=== PATIENT | male | born 1990 | race Caucasian/White ===

== ENCOUNTER 2018-12-04 08:21 | Emergency (ER) | payer MEDICAID, SELFPAY ==
[2018-12-04 08:22] VITALS: BP 152/112; PULSE 100; RESP 18; TEMP 36.6; O2SAT 97; BMI 27.3
--- NOTE | 2018-12-04 08:32 | ED.VISSUMM ---
- ER Visit Summary Date of Service: 12/04/18 Chief Complaint: Foreign body sensation in throat History of Present Illness: The patient is a 28 M who presents for foreign body sensation in throat. Patient states he was sleepwalking last night and ate a sandwich that was wrapped in aluminum foil. He swallowed some of the foil. He now feels like there is a golf ball stuck in his throat. He is having no trouble breathing. He does not have any difficulty drinking fluids, but felt like his vitamins got stuck in his throat. He did not vomit them up. He did self induce vomiting to try and get the full out but did not know any full and emesis. He denies any hemoptysis or hematemesis. No chest pain, fever, cough or any other complaints other than the sensation of the foreign body in throat and the perception that he was unable to swallow his pills. Patient denies any medical history. He does use tobacco. Physical Examination: Vital signs: afebrile, hemodynamically stable, no hypoxia on room air General: well nourished, well developed, in no distress Skin: warm, dry, no rash, no pallor HEENT: normocephalic and atraumatic; PERRL, EOMI, moist mucous membranes, oropharynx is clear without any lacerations, abrasions or erythema. Uvula is midline. No foreign body visualized. No stridor noted over the throat. Full active range of motion of the neck without any pain or tenderness Cardiovascular: regular rate and rhythm without murmurs, 2+ radial pulses Respiratory: No increased work of breathing, lungs are clear to auscultation bilaterally, no rales, rhonchi or wheezing, no stridor Abdominal: Abdomen is soft, nontender with normoactive bowel sounds, no guarding or rebound, no masses MSK: Moves all extremities, no deformities, normal strength Neuro: Awake and alert, oriented ?4. No facial droop, sensation and motor function intact and symmetric Test Results: Clinical Impression(s) from Imaging Studies Soft Tissue Neck X-Ray 12/04/18 08:50 IMPRESSION: Normal x-ray soft tissue neck. Electronically Signed: Benji Sanchez, at 9:16 EDT , Service support , Acute Abdomen Series 12/04/18 09:00 IMPRESSION: Normal x-ray examination of the chest, abdomen, and pelvis. Electronically Signed: Benji Sanchez, at 9:17 EDT , Service support , Medications Given Dexamethasone Sodium Phosphate (Decadron) 8 mg PO.IVFORM X1 ONE Stop: 12/04/18 09:35 Emergency Department Course and Treatment: Patient has no findings concerning for airway compromise or esophageal obstruction resulting in inability to tolerate secretions. Soft tissue neck and abdominal x-ray were performed to try and visualize the aluminum foil. X-rays showed no radiopaque foreign bodies. Patient was given a p.o. challenge with cookies and water. He vomited up the cookie. Patient was then given a celena norberto to chug and then jump up and down on his heels. Patient states he felt like the obstruction move downward. After that, patient was able to swallow the cookie without any difficulty. He still felt like his throat was irritated and thus was given a dose of Decadron to help with any inflammation from potential foreign body trauma. Patient discharged home. Treatment Plan: [] Disposition: [] Impression: Foreign body sensation in throat This note was generated with [employer] dictation software. It may contain incorrect words, spelling, and punctuation that were not noted in review of the chart prior to signing ED Disposition - Plan for ED Patient: Disposition: Home or Assisted Living Instructions: ED Foreign Body Swallowed Adult Referrals: Nikita Medina MD [Primary Care Provider] - 3-5 Days if not improving Additional Instructions: You may eat and drink normally as tolerated. Use [id number] pain medication as needed for any throat pain. There was no aluminum foil noted in your throat or any other stomach on x-ray. You most likely have a scratch in your throat from swallowing it. If you have any difficulty breathing or any other concerns, please return emergency department for another evaluation.
--- NOTE | 2018-12-04 08:35 | ED.DCSUM_ITS ---
- ER Visit Summary Date of Service: 12/04/18 Chief Complaint: Foreign body sensation in throat History of Present Illness: The patient is a 28 M who presents for foreign body sensation in throat. Patient states he was sleepwalking last night and ate a sandwich that was wrapped in aluminum foil. He swallowed some of the foil. He now feels like there is a golf ball stuck in his throat. He is having no trouble breathing. He does not have any difficulty drinking fluids, but felt like his vitamins got stuck in his throat. He did not vomit them up. He did self induce vomiting to try and get the full out but did not know any full and emesis. He denies any hemoptysis or hematemesis. No chest pain, fever, cough or any other complaints other than the sensation of the foreign body in throat and the perception that he was unable to swallow his pills. Patient denies any medical history. He does use tobacco. Physical Examination: Vital signs: afebrile, hemodynamically stable, no hypoxia on room air General: well nourished, well developed, in no distress Skin: warm, dry, no rash, no pallor HEENT: normocephalic and atraumatic; PERRL, EOMI, moist mucous membranes, oropharynx is clear without any lacerations, abrasions or erythema. Uvula is midline. No foreign body visualized. No stridor noted over the throat. Full active range of motion of the neck without any pain or tenderness Cardiovascular: regular rate and rhythm without murmurs, 2+ radial pulses Respiratory: No increased work of breathing, lungs are clear to auscultation bilaterally, no rales, rhonchi or wheezing, no stridor Abdominal: Abdomen is soft, nontender with normoactive bowel sounds, no guarding or rebound, no masses MSK: Moves all extremities, no deformities, normal strength Neuro: Awake and alert, oriented ?4. No facial droop, sensation and motor function intact and symmetric Test Results: Clinical Impression(s) from Imaging Studies Soft Tissue Neck X-Ray 12/04/18 08:50 IMPRESSION: Normal x-ray soft tissue neck. Electronically Signed: Benji Sanchez, at 9:16 EDT , Service support , Acute Abdomen Series 12/04/18 09:00 IMPRESSION: Normal x-ray examination of the chest, abdomen, and pelvis. Electronically Signed: Benji Sanchez, at 9:17 EDT , Service support , Medications Given Dexamethasone Sodium Phosphate (Decadron) 8 mg PO.IVFORM X1 ONE Stop: 12/04/18 09:35 Emergency Department Course and Treatment: Patient has no findings concerning for airway compromise or esophageal obstruction resulting in inability to tolerate secretions. Soft tissue neck and abdominal x-ray were performed to try and visualize the aluminum foil. X-rays showed no radiopaque foreign bodies. Patient was given a p.o. challenge with cookies and water. He vomited up the cookie. Patient was then given a celena norberto to chug and then jump up and down on his heels. Patient states he felt like the obstruction move downward. After that, patient was able to swallow the cookie without any difficulty. He still felt like his throat was irritated and thus was given a dose of Decadron to help with any inflammation from potential foreign body trauma. Patient discharged home. Treatment Plan: [] Disposition: [] Impression: Foreign body sensation in throat This note was generated with [employer] dictation software. It may contain incorrect words, spelling, and punctuation that were not noted in review of the chart prior to signing ED Disposition - Plan for ED Patient: Disposition: Home or Assisted Living Instructions: ED Foreign Body Swallowed Adult Referrals: Nikita Medina MD [Primary Care Provider] - 3-5 Days if not improving Additional Instructions: You may eat and drink normally as tolerated. Use [id number] pain medication as needed for any throat pain. There was no aluminum foil noted in your throat or any other stomach on x-ray. You most likely have a scratch in your throat from swallowing it. If you have any difficulty breathing or any other concerns, please return emergency department for another evaluation.
--- NOTE | 2018-12-04 08:50 | RAD_ITS ---
STUDY: X-RAY - SOFT TISSUE NECK REASON FOR EXAM: Male, 28 years old. Possible foreign body. TECHNIQUE: AP and lateral view(s) of the neck were obtained. COMPARISON: None. FINDINGS: Normal visualized nasopharynx, oropharynx, hypopharynx. Normal epiglottis. Normal visualized subglottic tracheal air column. Normal prevertebral soft tissue structures. There are degenerative changes of the cervical spine with cervical spondylosis. The soft tissue structures are unremarkable. RAD/Neck for Soft Tissue IMPRESSION: Normal x-ray soft tissue neck. Electronically Signed: Benji Sanchez, at 9:16 EDT , Service support ,
--- NOTE | 2018-12-04 09:00 | RAD_ITS ---
STUDY: X-RAY - ACUTE ABDOMINAL SERIES REASON FOR EXAM: Male, 28 years old. Possible foreign body ingestion. TECHNIQUE: Single view of the chest. Supine, and erect view(s) of the abdomen were obtained. COMPARISON: None. FINDINGS: The lungs are clear and expanded. Normal size heart. Normal mediastinum and yisel. Normal visualized pulmonary arteries. Normal visualized aortic arch and descending thoracic aorta. There is a non-specific bowel gas pattern. The soft tissue structures of the abdomen and pelvis are unremarkable. Normal visualized osseous structures. RAD/Acute Abdomen Inc Chest IMPRESSION: Normal x-ray examination of the chest, abdomen, and pelvis. Electronically Signed: Benji Sanchez, at 9:17 EDT , Service support ,
[2018-12-04] MEDS: dexAMETHasone 10 MG/ML Vial 8 MG PO.IVFORM (09:43)
[2018-12-04 09:50] VITALS: BP 143/88; PULSE 84; RESP 16; O2SAT 97
== END 2018-12-04 09:52 | disposition home or self-care (01) ==
PROVIDERS: Emergency Provider Emergency Medicine; Family Provider Family Medicine; PCP Family Medicine
DX: R09.89 Other specified symptoms and signs involving the circulatory and respiratory systems (principal); Z72.0 Tobacco use
CPT/HCPCS: 70360; 74022; 99283

== ENCOUNTER → 2018-12-21 08:51 | Outpatient (CLI) | payer MEDICAID, SELFPAY ==
[2018-12-04 08:22] VITALS: BMI 27.3
--- NOTE | 2018-12-21 08:58 | RAD_ITS ---
Patient swallowed the barium. There is an irregular mass measures 1.3 x 0.8 cm in the upper esophagus this is at the level of T3-T4 vertebral bodies is causing focal dilatation of the esophagus, now the history was given by the patient as he swallowed a bolus sandwich that is covered with aluminium foil So most likely this represents aluminum foreign foreign-body particularly where the area is gravid in between the aluminium folds. Apparently, without such history is given this is simulating a tumor. Direct visualization is needed to remove this foreign body. RAD/Esophagus Only IMPRESSION: Evidence of foreign body in the upper esophagus (represent Aluminium foil). As stated by the patient's history. Electronically Signed: Jesus Rodriguez, at 11:35 EDT Tel , Service support ,
== END ==
PROVIDERS: Family Provider Family Medicine; PCP Family Medicine; Referring Provider Otolaryngology; Visit Provider Otolaryngology
DX: R13.10 Dysphagia, unspecified (principal)
CPT/HCPCS: 74220

== ENCOUNTER 2021-06-18 14:50 | Emergency (ER) | payer MEDICAID, SELFPAY ==
[2021-06-18 14:51] VITALS: BP 155/102; PULSE 124; RESP 18; TEMP 36.1; O2SAT 97; BMI 28.8
--- NOTE | 2021-06-18 14:57 | NURSING ---
NO OLD EKGS
--- NOTE | 2021-06-18 15:05 | EKG12_ITS ---
Test Reason : CP Blood Pressure : / mmHG Vent. Rate : 111 BPM Atrial Rate : 111 BPM P-R Int : 122 ms QRS Dur : 084 ms QT Int : 310 ms P-R-T Axes : 059 033 047 degrees QTc Int : 421 ms Sinus tachycardia Otherwise normal ECG Confirmed by MIKA FAJARDO, ESA ([id number]), medical transcription editor DANIEL JHAVERI ([id number]) on 06/20/2021 9:49:13 AM Referred By: NERI/RYLEE Confirmed By:ESA BRENNAN MD
--- NOTE | 2021-06-18 15:09 | NURSING ---
NO OLD EKGS
[2021-06-18 15:22] LABS: Absolute Lymphocyte Count 5.58 X10^3/uL (0.83-4.51); Basophil# 0.18 X10^3/uL; Basophil% 0.8 % (0-1); Differential Indicated SCAN CRITERIA MET; Eosinophil# 0.31 X10^3/uL; Eosinophils% 1.3 % (0-5); Hematocrit 45.4 % (40-54); Hemoglobin 14.9 g/dL (13.0-16.5); Lymphocyte # 5.58 X10^3/ul (0.83-4.51); Lymphocyte % 23.9 % (19-41); Mean Corp Hgb Conc 32.8 g/dL (32-36); Mean Corpuscular Hgb 29.4 pg (27.0-32.0); Mean Corpuscular Volume 89.7 fL (80-94); Mean Platelet Vol. 9.9 fl (6.2-12.0); NRBC Flagged by Analyzer 0 % (0-5); Neutrophil # 14.96 X10^3/uL (2.7-7.7); Neutrophil % 64.2 % (47-70); POSITIVE DIFFERENTIAL YES; Platelet Count 615 K/mm3 (150-450); RBC Distribution Width CV 14.8 % (11.6-14.6); RBC Distribution Width SD 48.4 fl (35.1-43.9); Red Blood Count 5.06 M/mm3 (4.6-6.2); White Blood Count 23.3 K/mm3 (4.4-11.0)
--- NOTE | 2021-06-18 15:24 | ED.VIS.CHEST ---
HPI History of Present Illness Chief Complaint: Chest Pain Informant: patient Narrative Narrative: 31-year-old male presenting to the emergency room with what he is describing as diaphragm pain. The patient states that he developed Covid symptoms on 22 May. He has noticed a fast heart rate and a persistent occasional cough. He states over the past couple days has developed pain lower aspect of his chest along the diaphragm area. It is made worse with movement. He denies any fevers. No vomiting or diarrhea. He is eating appropriately for him. PFSH PFSH Medical History (Updated 06/18/21 @ 18:[address] Prosper Corrales DO) COVID-19 Home Medications NK 12/04/18 [History Last Taken Unknown] Allergy/AdvReac Type Severity Reaction Status Date / Time Cephalosporins Allergy Hives Verified 12/04/18 08:24 Penicillins Allergy Hives Verified 12/04/18 08:24 Surgical History (Updated 06/18/21 @ 15:50 by Lakisha Garcia RN) Hx of splenectomy Social History (Updated 06/18/21 @ 15:[address] Prosper Corrales DO) Smoking Status: Never smoker substance use type: former substance user ROS ROS ED Constitutional Constitutional ED: Denies chills or weight loss Eyes Eyes: Denies change in vision or diplopia ENT ENT ED: Denies ear pain, rhinorrhea or sore throat Cardiovascular Cardiovascular: Reports chest pain, palpitations and racing heartbeat; Denies orthopnea Respiratory/Chest Respiratory/Chest: Reports cough; Denies dyspnea or orthopnea Gastrointestinal Gastrointestinal: Denies abdominal pain, diarrhea, nausea or vomiting Genitourinary Genitourinary ED: Denies dysuria, hematuria or urinary frequency Musculoskeletal Musculoskeletal: Denies arthralgias or myalgias Integumentary Denies abscess or rash Neurologic Neurologic: Denies headache(s) or weakness Psychiatric Psychiatric: Denies anxiety, depression, suicidal ideation or suicidal thoughts Endocrine Endocrinology: Denies polydipsia, polyphagia or polyuria Allergic/Immunologic Allergic/Immunologic ED: Denies mouth swelling, tongue swelling or urticaria EXAM Physical Exam Const Vital Signs: 06/18/21 14:51 06/18/21 15:49 Temperature 97 F L Temperature Source Temporal Pulse Rate 124 H 122 H Respiratory Rate 18 16 Respiratory Effort Normal Non-Labored Blood Pressure 155/102 H 154/96 H Blood Pressure Mean 119 115 Pulse Ox 97 97 Oxygen Delivery Method Room Air Positive well nourished and well developed General Appearance ED: well developed HEENT Reports normocephalic, head/scalp atraumatic, TM's clear and moist mucous membranes normocephalic and atraumatic Tympanic Membrane ED: Yes TM's clear Eyes PERRL and EOMs intact bilaterally Neck no lymphadenopathy, supple and no JVD Resp normal respiratory effort and clear to auscultation bilaterally Cardio regular rate and no murmurs Rate: tachycardic GI normal to inspection, nondistended, normoactive bowel sounds and non-tender Palpation: soft Back/Spine no CVA tenderness and normal ROM Extremity normal to inspection General Extremety ED: Negative for edema General Extremity: Negative for edema Neuro oriented x3 and CN's II-XII intact bilaterally Sensorium / Orientation: alert Motor Exam: strength 5/5 throughout Psych mental status grossly normal Mood & Affect: Negative for depressed or tearful Skin no rashes or lesions noted and no wounds MDM MDM MDM Narrative Medical decision making narrative: Patient's white count is 23. Upon discussion with him he now tells me that he has put himself on prednisone for the past 5+ days. His D-dimer is negative. Troponin high-sensitivity is 5 creatinine 1.17. Urinalysis is negative. CT the abdomen pelvis does not demonstrate anything to explain the pathology. He remains tachycardic and hypertensive. I think part of this is anxiety which he agrees with. He may have residual tachycardia because of his Covid infection. As far as the diaphragm pain not sure what to make out of that. Would encourage him to Lab Data Attestation: I reviewed the patient's lab results. Labs: Laboratory Results - last 24 hr 06/18/21 06/18/21 06/18/21 15:15 15:15 15:15 WBC 23.3 H RBC 5.06 Hgb 14.9 Hct 45.4 MCV 89.7 MCH 29.4 MCHC 32.8 RDW Std Deviation 48.4 H RDW Coeff of Rhianna 14.8 H Plt Count 615 H MPV 9.9 Immature Gran % (Auto) 0.800 Neut % (Auto) 64.2 Lymph % (Auto) 23.9 [place] % (Auto) 9.0 Eos % (Auto) 1.3 Baso % (Auto) 0.8 Absolute Neuts (auto) 15.0 H Absolute Lymphs (auto) 5.58 H Nucleated RBC % 0 Differential Comment Diff Path Review May foll Platelet Estimate MKD INC RBC Morphology NORM C+C D-Dimer Quant (PE/DVT) <= 0.27 Sodium 138 Potassium 3.7 Chloride 104 Carbon Dioxide 25.0 Anion Gap 9 BUN 21 H Creatinine 1.17 Estim Creat Clear Calc 90.64 Est GFR (MDRD) Af Amer 93 Est GFR (MDRD) Non-Af 77 BUN/Creatinine Ratio 17.9 Glucose 151 H Calcium 9.0 Total Bilirubin 0.50 AST 38 H ALT 82 H Alkaline Phosphatase 80 Troponin I High Sens 5 Total Protein 7.3 Albumin 3.5 Globulin 3.8 Albumin/Globulin Ratio 0.9 Lipase 214 Urine Color Urine Clarity Urine pH Ur Specific [place] Urine Protein Urine Glucose (UA) Urine Ketones Urine Occult Blood Urine Nitrite Urine Bilirubin Urine Urobilinogen Ur Leukocyte Esterase Urine RBC Urine WBC Ur Squamous Epith Cells Urine Bacteria Urine Mucus Urine Opiates Screen Urine Methadone Screen Ur Barbiturates Screen Ur Phencyclidine Scrn Ur Amphetamines Screen U Methamphetamin-MDMA U Benzodiazepines Scrn Urine Cocaine Screen U Cannabinoids Screen Ur Drug Screen Comment 06/18/21 06/18/21 16:30 16:30 WBC RBC Hgb Hct MCV MCH MCHC RDW Std Deviation RDW Coeff of Rhianna Plt Count MPV Immature Gran % (Auto) Neut % (Auto) Lymph % (Auto) [place] % (Auto) Eos % (Auto) Baso % (Auto) Absolute Neuts (auto) Absolute Lymphs (auto) Nucleated RBC % Differential Comment Diff Path Review Platelet Estimate RBC Morphology D-Dimer Quant (PE/DVT) Sodium Potassium Chloride Carbon Dioxide Anion Gap BUN Creatinine Estim Creat Clear Calc Est GFR (MDRD) Af Amer Est GFR (MDRD) Non-Af BUN/Creatinine Ratio Glucose Calcium Total Bilirubin AST ALT Alkaline Phosphatase Troponin I High Sens Total Protein Albumin Globulin Albumin/Globulin Ratio Lipase Urine Color Straw Urine Clarity Clear Urine pH 7.0 Ur Specific [place] 1.005 Urine Protein Negative Urine Glucose (UA) Normal Urine Ketones Negative Urine Occult Blood Negative Urine Nitrite Negative Urine Bilirubin Negative Urine Urobilinogen Normal Ur Leukocyte Esterase Negative Urine RBC 0 SEEN Urine WBC 0 SEEN Ur Squamous Epith Cells 0 SEEN Urine Bacteria 0 SEEN Urine Mucus 0 SEEN Urine Opiates Screen NEGATIVE Urine Methadone Screen NEGATIVE Ur Barbiturates Screen NEGATIVE Ur Phencyclidine Scrn NEGATIVE Ur Amphetamines Screen NEGATIVE U Methamphetamin-MDMA NEGATIVE U Benzodiazepines Scrn NEGATIVE Urine Cocaine Screen NEGATIVE U Cannabinoids Screen POSITIVE H Ur Drug Screen Comment Radiography Diagnostic Testing: Clinical Impression(s) from Imaging Studies Chest X-Ray 06/18/21 15:30 IMPRESSION: Normal x-ray examination of the chest. Electronically Signed: Benji Sanchez MD at 15:50 EST , Service support , Abdomen/Pelvis CT 06/18/21 15:57 IMPRESSION: Diffuse hepatic steatosis. Bowel malrotation. No evidence of bowel obstruction. Normal appendix Electronically Signed: Brain Angel MD at 17:53 EST Tel , Service support , EKG Initial EKG: Interpretation: Sinus Tachycardia Comments: Ventricular rate of 111 bpm Discharge Plan Triage Chief Complaint: Chest Pain ED Provider: Prosper Corrales Dx/Rx/DC Orders Clinical Impression: Sinus tachycardia, COVID-19, Abdominal pain Prescriptions: No Action NK RF: 0 Primary Care Provider: Nikita Medina Referrals: Nikita Medina MD [Primary Care Provider] - 1-2 Weeks Disposition Disposition: Home, Self Care
--- NOTE | 2021-06-18 15:30 | RAD_ITS ---
STUDY: X-RAY CHEST REASON FOR EXAM: Male, 31 years old. Cough TECHNIQUE: Single AP portable view of the chest. COMPARISON: Comparison is made with prior study dated 12/05/1999. FINDINGS: EKG electrodes are seen. The lungs are clear and expanded. There is no demonstrated pleural abnormality. Normal size heart. Normal mediastinum and yisel. Normal visualized pulmonary arteries. Normal visualized aortic arch and descending thoracic aorta. Normal visualized thoracic spine. Normal visualized ribs, clavicles, and shoulders. There is no demonstrated abnormality of the visualized soft tissue structures of the upper abdomen. RAD/Chest 1 View (Portable) IMPRESSION: Normal x-ray examination of the chest. Electronically Signed: Benji Sanchez MD at 15:50 EST , Service support ,
[2021-06-18 15:45] LABS: ALB/GLOB Ratio 0.9 RATIO (0.9-2.4); AST(SGOT) 38 U/L (15-37); Alanine Aminotransfer ALT/SGPT 82 U/L (16-61); Albumin, Serum 3.5 g/dL (3.2-5.0); Alkaline Phosphatase 80 U/L (45-117); Anion Gap 9 (5-15); BUN 21 mg/dL (7-18); BUN/Creat Ratio 17.9 RATIO (10-20); Chloride 104 mmol/L (98-107); Creatinine, Serum 1.17 mg/dL (0.70-1.30); EST Glomerular Filtration Rate 77 mL/min (>60); Est Glom Filt Rate - Afr Amer 93 mL/min (>60); Estimated Creatinine Clearance 90.64 ml/min; Globulin 3.8 g/dL (2.2-4.2); Glucose 151 mg/dL (74-106); Lipase 214 U/L (73-393); Potassium 3.7 mmol/L (3.5-5.1); Protein, Total 7.3 g/dL (6.4-8.2); Sodium Level 138 mmol/L (136-145); Troponin-I HS 5 pg/mL (3.0-78.0)
[2021-06-18 15:46] LABS: D-Dimer Quantitative (DVT/PE) <= 0.27 FEU/ug/m (0.27-0.49)
[2021-06-18 15:49] VITALS: BP 154/96; PULSE 122; RESP 16; O2SAT 97
--- NOTE | 2021-06-18 15:57 | CT_ITS ---
STUDY: CT ABDOMEN AND PELVIS WITH CONTRAST REASON FOR EXAM: Male, 31 years old. abdominal pain RADIATION DOSAGE (If Supplied By Facility): CTDIvol = ( 13.98 ) mGy, DLP = ( 1134.42 ) mGycm TECHNIQUE: Transaxial images were obtained from the dome of the diaphragm to the symphysis pubis without oral contrast. IV 100mL [id number]-[id number] was administered. Sagittal and coronal images were reconstructed. Individualized dose optimization techniques were used for this CT. COMPARISON: None. FINDINGS: Lung bases clear. Suggestion of diffuse hepatic steatosis. Prior splenectomy. Unremarkable pancreas, adrenals, and bilateral kidneys. No definite cholelithiasis. Normal appendix. 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 No evidence of bowel obstruction. No free air or free fluid. No adenopathy. Intact abdominal aorta and its major branches. Sections through the pelvis demonstrate a normal sized prostate. Urinary bladder grossly unremarkable. Fat-containing left inguinal hernia. Intact osseous structures. CT/Abdomen/Pelvis W IV Cont ONLY IMPRESSION: Diffuse hepatic steatosis. Bowel malrotation. No evidence of bowel obstruction. Normal appendix Electronically Signed: Brain Angel MD at 17:53 EST Tel , Service support ,
[2021-06-18 16:15] LABS: Platelet Estimate MKD INC (ADEQ)
[2021-06-18 16:16] LABS: Red Cell Morphology NORM C+C NORMAL (NORM C&C)
[2021-06-18 16:36] LABS: Bacteria 0 SEEN /hpf (None Seen); Mucous, Urine 0 SEEN /hpf (<or=2+); Red Blood Cells-Urine 0 SEEN /hpf (0-5); Squamous Epithelial Cells - UA 0 SEEN /hpf (0-5); White Blood Cells 0 SEEN /hpf (0-5)
[2021-06-18 16:38] LABS: Color, Urine Straw (Yellow); Glucose, Dipstick Normal (Normal); Ketone-Dipstick Negative (Negative); Leukocyte Esterase-Dipstick Negative /ul (Negative); Nitrite-Dipstick Negative (Negative); Occult Blood-Urine Negative /ul (Negative); Protein-Dipstick Negative (Negative); Specific Gravity, Urine 1.005 (1.002-1.030); Urine Bilirubin Dipstick Negative (Negative); Urine Clarity Clear (Clear); Urine Urobilinogen Normal (Normal)
[2021-06-18 17:09] LABS: Amphetamine Urine VISTA NEGATIVE (<1000 ng/mL); Barbiturate Urine VISTA NEGATIVE (< 200 ng/mL); Benzodiazepine Urine VISTA NEGATIVE (< 200 ng/mL); Cocaine Urine VISTA NEGATIVE (< 300 ng/mL); Ecstacy Urine VISTA NEGATIVE (< 500 ng/mL); Methadone Urine VISTA NEGATIVE (< 300 ng/mL); PCP Urine VISTA NEGATIVE (< 25 ng/mL); THC Urine VISTA POSITIVE (< 50 ng/mL); Vista UDS pH Range 6
[2021-06-18 18:29] VITALS: BP 162/107; PULSE 118; RESP 22; O2SAT 98
[2021-06-20 09:43] LABS: Pathologist Review Reviewed
== END 2021-06-18 18:30 | disposition home or self-care (01) ==
PROVIDERS: Emergency Provider Emergency Medicine; PCP Family Medicine
DX: U07.1 COVID-19 (principal); R00.0 Tachycardia, unspecified; R07.9 Chest pain, unspecified; R10.9 Unspecified abdominal pain
CPT/HCPCS: 71045; 74177; 80053; 80307; 81001; 83690; 84484; 85025; 85379; 93005; 99284; Q9967; A4216

== ENCOUNTER 2022-01-19 16:26 | Emergency (ER) | payer MEDICAID, SELFPAY ==
[2022-01-19 16:27] VITALS: BP 131/91; PULSE 88; RESP 14; TEMP 37; O2SAT 100; BMI 25.1
[2022-01-19 16:39] VITALS: RESP 18
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
== END 2022-01-19 16:51 | disposition home or self-care (01) ==
PROVIDERS: Emergency Provider Emergency Medicine; PCP Family Medicine; Visit Provider Emergency Medicine
DX: L03.114 Cellulitis of left upper limb (principal); B95.62 Methicillin resistant Staphylococcus aureus infection as the cause of diseases classified elsewhere; Z90.81 Acquired absence of spleen; Z86.16 Personal history of COVID-19
CPT/HCPCS: 99282

== ENCOUNTER 2023-04-19 18:13 | Emergency (ER) | payer MEDICAID, SELFPAY ==
[2023-04-19 18:14] VITALS: BP 147/99; PULSE 84; RESP 12; O2SAT 98
[2023-04-19 18:15] VITALS: BP 150/103; PULSE 99; RESP 14; TEMP 36.4; O2SAT 98; BMI 27.3
--- NOTE | 2023-04-19 18:28 | EDS_ITS ---
HPI <DARLENE Etienne - Last Filed: 04/19/23 19:49> History of Present Illness Chief Complaint: Allergic Reaction Narrative Narrative: Patient presenting today due to an urticarial rash to his chest and neck that started this evening. He reports that he was outside picking peppers and tomatoes from his garden and pulling weeds. He did have a hoodie on at that time but does remember scratching his neck afterwards. He denies any contact with known allergens, new medications, or new body products/detergents. He denies any swelling to his lips, tongue, throat. He denies any difficulty swallowing or shortness of breath. PFSH <DARLENE Etienne - Last Filed: 04/19/23 19:49> COUNT INCLUDES THE [facility] Medical History (Updated 04/19/23 @ 19:39 by DARLENE Etienne) COVID-19 Home Medications mupirocin 2 % topical ointment 1 applic topical BID PRN MRSA #22 grams 01/19/22 [Rx Last Taken Unknown] sulfamethoxazole 800 mg-trimethoprim 160 mg tablet 1 tab PO BID #14 TABLETS 01/19/22 [Rx Last Taken Unknown] famotidine 20 mg tablet 20 mg PO DAILY 4 days #4 tabs 04/19/23 [Rx Last Taken Unknown] famotidine 40 mg tablet 40 mg PO DAILY 04/19/23 [History Last Taken Unknown] prednisone 20 mg tablet 40 mg (2 x 20 mg) PO DAILY 4 days #8 tabs 04/19/23 [Rx Last Taken Unknown] Allergy/AdvReac Type Severity Reaction Status Date / Time Cephalosporins Allergy Hives Verified 04/19/23 18:14 Penicillins Allergy Hives Verified 04/19/23 18:14 Surgical History (Updated 04/19/23 @ 18:33 by Nella Henry) History of adenectomy Hx of splenectomy Hx of tonsillectomy Social History Smoking Status: Former smoker substance use type: former substance user ROS <DARLENE Etienne - Last Filed: 04/19/23 19:49> ROS ED Constitutional Constitutional ED: Denies chills or fever(s) Cardiovascular Cardiovascular: Denies chest pain Respiratory/Chest Respiratory/Chest: Denies cough or dyspnea Gastrointestinal Gastrointestinal: Denies abdominal pain, nausea or vomiting Musculoskeletal Musculoskeletal: Denies arthralgias or myalgias Integumentary Reports rash Neurologic Neurologic: Denies weakness Allergic/Immunologic Allergic/Immunologic ED: Reports urticaria; Denies lip swelling, mouth swelling or tongue swelling EXAM <DARLENE Etienne - Last Filed: 04/19/23 19:49> Physical Exam Const Vital Signs: 04/19/23 18:15 04/19/23 18:14 04/19/23 19:43 Temperature 97.6 F L Temperature Source Temporal Pulse Rate 99 84 72 Respiratory Rate 14 12 18 Blood Pressure 150/103 H 147/99 H 133/62 H Blood Pressure Mean 118 115 85 Pulse Ox 98 98 97 Oxygen Delivery Method Room Air Room Air Positive well nourished, well developed and no apparent distress General Appearance ED: well developed HEENT Reports normocephalic and head/scalp atraumatic HEENT Narrative: Mallampati score 1 No edema to the lips, tongue, or posterior pharynx. Mouth ED: Yes moist mucous membranes normal Eyes PERRL and EOMs intact bilaterally Neck full ROM and supple Chest Wall inspection of chest normal Resp normal respiratory effort and clear to auscultation bilaterally Cardio regular rate and regular rhythm GI soft to palpation, non-tender, non-distended and no masses Back/Spine normal ROM and normal to inspection Extremity normal to inspection and full ROM Neuro oriented x3, CN's II-XII intact bilaterally, moves all extremities, no focal motor deficits and no sensory deficits noted Sensorium / Orientation: awake and alert Psych mental status grossly normal and thought process normal Skin Skin Narrative: Urticarial rash to the neck, chest, and antecubital fossa bilaterally <Jero Mancia MD - Last Filed: 04/19/23 20:42> Physical Exam Const Vital Signs: 04/19/23 18:15 04/19/23 18:14 04/19/23 19:43 Temperature 97.6 F L Temperature Source Temporal Pulse Rate 99 84 72 Respiratory Rate 14 12 18 Blood Pressure 150/103 H 147/99 H 133/62 H Blood Pressure Mean 118 115 85 Pulse Ox 98 98 97 Oxygen Delivery Method Room Air Room Air MDM <DARLENE Etienne - Last Filed: 04/19/23 19:49> MDM MDM Narrative Medical decision making narrative: Patient presenting today with an urticarial rash to his chest, neck, bilateral antecubital fossa's. He was outside picking peppers and tomatoes from his garden and was also pulling weeds but was wearing a hoodie. He does remember scratching his neck and then shortly after noticed the rash. He did not come into contact with any known allergens. He does not have any swelling to his lips, tongue, or posterior pharynx. He took Benadryl prior to arrival, he was given prednisone and famotidine here. He was observed and symptoms did not worsen. I do not think that he needs epinephrine at this time. Symptoms are consistent with an allergic reaction. He will be given a prescription for prednisone and famotidine and is to continue taking Benadryl at home. He is to follow-up with his PCP and has been given return instructions. He will be discharged home in stable condition and is comfortable with plan. <Jero Mancia MD - Last Filed: 04/19/23 20:42> [facility] Narrative Medical decision making narrative: Patient presenting today with an urticarial rash to his chest, neck, bilateral antecubital fossa's. He was outside picking peppers and tomatoes from his garden and was also pulling weeds but was wearing a hoodie. He does remember scratching his neck and then shortly after noticed the rash. He did not come into contact with any known allergens. He does not have any swelling to his lips, tongue, or posterior pharynx. He took Benadryl prior to arrival, he was given prednisone and famotidine here. He was observed and symptoms did not worsen. I do not think that he needs epinephrine at this time. Symptoms are consistent with an allergic reaction. He will be given a prescription for prednisone and famotidine and is to continue taking Benadryl at home. He is to follow-up with his PCP and has been given return instructions. He will be discharged home in stable condition and is comfortable with plan. Dr. Mancia: I have personally performed a face to face assessment of the patient and have reviewed the JACKLYN Note. I performed a substantive portion of the visit including all aspects of the following. My díaz findings include: History is rash around neck and upper portion of chest after taking a shower. Patient had been outside gardening and pulling tomatoes and peppers. Not necessarily itchy. No throat closing, no shortness of breath. Exam is afebrile. Vital signs noted. Nontoxic-appearing. Airway patent. No angioedema, no swelling of tongue, no Bahman angina. Positive rash which appear more like confluence of hives around neck at base and on the upper portion of chest. Medical Decision Making: Rash is more urticarial in nature. Patient already took Benadryl prior to arrival. He was administered prednisone and Pepcid here and observed. I do not feel epinephrine is indicated. He will continue [id number] Benadryl and was written prescriptions for Pepcid and for prednisone burst. I feel he can be discharged to follow-up with his primary care provider, and he was told he may need referral to allergy/immunology. Pulse ox is 97% on room air. I do not feel that he requires observation or admission at this time. Return instructions to the emergency department were reviewed. Disposition is discharged home in stable condition. Other additions or changes: [None] History & Record Review Discussion w/independent historian: Patient Additional record(s) reviewed:: Prior ED visit (Noncontributory to current chief complaint.) Discharge Plan Triage Chief Complaint: Allergic Reaction ED Midlevel Provider: Shweta Luis ED Provider: Jero Mancia Dx/Rx/DC Orders Clinical Impression: Urticarial rash, Allergic reaction Instructions: ED Hives (Adult) Prescriptions: New prednisone 20 mg tablet 40 mg PO DAILY 4 Days Qty: 8 0RF famotidine 20 mg tablet 20 mg PO DAILY 4 Days Qty: 4 0RF No Action sulfamethoxazole-trimethoprim [sulfamethoxazole-trimethoprim] 800-160 mg tablet 1 tab PO BID Qty: 14 0RF mupirocin 2 % ointment 1 applic topical BID PRN (Reason: MRSA) Qty: 22 0RF famotidine 40 mg tablet 40 mg PO DAILY Patient Comments: take 1 tablet by mouth every morning Primary Care Provider: Nikita Medina Referrals: Nikita Medina MD [Primary Care Provider] - 5-7 Days Activity Restrictions/Additional Instructions: Follow-up with your PCP and return for any worsening of your symptoms. Disposition Disposition: Home, Self Care Discharge Date/Time: 04/19/23 19:44
[2023-04-19] MEDS: predniSONE 20 MG Tablet 40 MG PO (18:30)
[2023-04-19] MEDS: Famotidine 20 MG Tablet PO (18:30)
[2023-04-19 19:43] VITALS: BP 133/62; PULSE 72; RESP 18; O2SAT 97
== END 2023-04-19 19:44 | disposition home or self-care (01) ==
PROVIDERS: Emergency Provider Emergency Medicine; PCP Family Medicine; Visit Provider Emergency Medicine
DX: R21 Rash and other nonspecific skin eruption (principal); T78.40XA Allergy, unspecified, initial encounter; Z87.891 Personal history of nicotine dependence; Z86.16 Personal history of COVID-19; X58.XXXA Exposure to other specified factors, initial encounter
CPT/HCPCS: 99283

== ENCOUNTER 2025-02-13 14:36 | Inpatient (IN) | payer OTHER, SELFPAY ==
[2025-02-13 14:36] VITALS: BP 163/113; BP 169/110; PULSE 113; PULSE 118; RESP 16; RESP 18; TEMP 36.1; O2SAT 98; BMI 28.9
--- OUTSIDE RECORDS SUMMARY | 2025-02-13 15:13 | XMS RPT_ITS | CCD ---
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 Normal 0.72-1.25 [facility] Comment on above: Performed By: #### Jaspreet LABOY, LAB62, LAB17 ####Injection Moulding Machine Operator: YOHANA JARQUIN ([id number])[facility])[address] [place] [address] GLOMERULAR FILTRATION RATE ML/MIN/1.73 SQ M.PREDICTED >90.0 Normal >60.0 [facility] Comment on above: Result Comment: Calc ulation based on the Chronic Kidney Disease Epidemiology Collaboration (CKD-EPI) equation refit without adjustment for race Performed By: #### Jaspreet LABOY, LAB62, LAB17 ####Injection Moulding Machine Operator: YOHANA JARQUIN ([id number])[facility])[address] [place] [address] Glucose [Mass/Vol] 106 mg/dL High 74-100 [facility] Comment on above: Performed By: #### Jaspreet MERAZ46, LAB62, LAB17 ####Injection Moulding Machine Operator: YOHANA JARQUIN ([id number])[facility])[address] [place] [address] [place] Potassium [Moles/Vol] 4.0 mmol/L Normal 3.5-5.1 [facility] Comment on above: Result Comment: [facility] potassium values may be up to 0.5 mmol/L lower than serum values. Performed By: #### Jaspreet AB46, LAB62, LAB17 ####Injection Moulding Machine Operator: YOHANA JARQUIN ([id number])[facility])[address] [place] [address] Protein [Mass/Vol] 8.2 g/dL Normal 6.4-8.3 [facility] Comment on above: Performed By: #### L AB46, LAB62, LAB17 ####Injection Moulding Machine Operator: YOHANA JARQUIN ([id number])[facility] ([facility])[address] [place] [address] Sodium [Moles/Vol] 140 mmol/L Normal 136-145 [facility] Comment on above: Performed By: #### L AB46, LAB62, LAB17 ####Injection Moulding Machine Operator: YOHANA JARQUIN ([id number])[facility] ([facility])[address] [place] [address] Urea nitrogen [Mass/Vol] 12 mg/dL Normal 8-21 [facility] Comment on above: Performed By: #### L AB46, LAB62, LAB17 ####Injection Moulding Machine Operator: YOHANA JARQUIN ([id number])[facility] ([facility])[address] [place] [address] Comprehensive metabolic 1998 panelon 08-04-2024 Albumin [Mass/Vol] 4.2 g/dL 3.5 - 5.0 g/dL [facility] ALP [Catalytic activity/Vol] 79 U/L 40 - 150 U/L [facility] ALT [Catalytic activity/Vol] 284 U/L High NINF - 40 U/L [facility] Anion gap [Moles/Vol] 14 mmol/L High 3 - 13 mmol/L [facility] AST [Catalytic activity/Vol] 237 U/L High NINF - 34 U/L [facility] Bilirubin [Mass/Vol] 0.4 mg/dL NINF - 1.2 mg/dL [facility] Calcium [Mass/Vol] 8.6 mg/dL 8.4 - 10. 2 mg/dL [facility] Chloride [Moles/Vol] 100 mmol/L 98 - 10 7 mmol/L [facility] CO2 [Moles/Vol] 26 mmol/L 22 - 29 mmol/L [facility] Creatinine [Mass/Vol] 0.97 mg/dL 0.72 - 1.25 mg/dL [facility] GFR/1.73 sq M.predicted (S/P/Bld) [Vol rate/Area] - PINF [facility] Comment on above: Calculation based on the Chronic Kidney Disease Epidemiology Collaboration (CKD-EPI) equation refit without adjustment for race Glucose [Mass/Vol] 106 mg/dL High 74 - 100 mg/dL [facility] Potassium [Moles/Vol] 4 mmol/L 3.5 - 5.1 mmol/L [facility] Comment on above: Plasma potassium rosy ues may be up to 0.5 mmol/L lower than serum values. Protein [Mass/Vol] 8.2 g/dL 6.4 - 8.3 g/dL [facility] Sodium [Moles/Vol] 140 mmol/L 136 - 145 mmol/L [facility] Urea nitrogen [Mass/Vol] 12 mg/dL 8 - 21 mg/dL [facility] DRUGS OF ABUSEon 08-04-2024 AMPHETAMINE SCREEN Negative Normal [facility] Comment on above: Performed By: #### L [id number] ####Injection Moulding Machine Operator: YOHANA JARQUIN ([id number])[address] BARBITURATES SCREEN Negative Normal [facility] Comment on above: Performed By: #### L [id number] ####Injection Moulding Machine Operator: YOHANA JARQUIN ([id number])[address] BENZODIAZEPINE SCREEN Negative Normal [facility] Comment on above: Performed By: #### L [id number] ####Injection Moulding Machine Operator: YOHANA JARQUIN ([id number])[address] COCAINE METAB. SCREEN Negative Normal [facility] Comment on above: Performed By: #### L [id number] ####Injection Moulding Machine Operator: YOHANA JARQUIN ([id number])[address] FENTANYL SCREEN, UR QUAL Negative Normal [facility] Comment on above: Result Comment: ORDE R COMMENTS: The expected value for all of the drugs listed above is Negative. The following drugs or drug groups have been screened for by Immunoassay at the following thresholds: Amphetamine class (1000 ng/mL) Barbiturates (200 ng/mL) Benzodiazepines (200 ng/mL) Cocaine (300 ng/mL) Methadone (300 ng/mL) Opiates (300 ng/mL) Oxycodone (100 ng/mL) PCP (25 ng/mL) Fentanyl (1.0 ng/ml) NOTE: These results are for medical treatment only. Analysis performed using non-forensic procedures. POSITIVE results are NOT confirmed by a more specific alternative method unless requested. If confirmation is needed, request confirmation under separate order. Performed By: #### L [id number] ####Injection Moulding Machine Operator: YOHANA JARQUIN ([id number])[facility])[address] [place] [address] METHADONE SCREEN Negative Normal [facility] Comment on above: Performed By: #### L [id number] ####Injection Moulding Machine Operator: YOHANA JARQUIN ([id number])[facility] ([facility])[address] [place] [address] OPIATES SCREEN Negative Normal [facility] Comment on above: Performed By: #### L [id number] ####Injection Moulding Machine Operator: YOHANA JARQUIN ([id number])[facility] ([facility])[address] [place] [address] OXYCODONE SCREEN Negative Normal [facility] Comment on above: Performed By: #### L [id number] ####Injection Moulding Machine Operator: YOHANA JARQUIN ([id number])[facility] ([facility])[address] [place] [address] PHENCYCLIDINE SCREEN Negative Normal [facility] Comment on above: Performed By: #### L [id number] ####Injection Moulding Machine Operator: YOHANA JARQUIN ([id number])[facility] ([facility])[address] [place] [address] ECG 12-LEADon 08-04-2024 ECG 12-LEAD IMPRESSION: Sinus rhythm Short MI interval no stemi artifact Electronically Signed On 08-04-2024 01:38:44 EST by Madelyn Crain [facility] ED Nursing Noteon 08-04-2024 ED Nursing Note Complete report provided. To ed of yvonne. [facility] ED Nursing Note A/ox3. Independent t o stretcher. Discharged to [facility]. Belongings set with ems transport. Normal [facility] ED Nursing Note Luzma Kapoor at beds tk obtaining vitals. Normal [facility] ED Nursing Note CHRISTO Fox giving karena ent warm blanket for comfort. Normal [facility] ED Nursing Note EKG at patient bedside. Normal [facility] ED Nursing Note Dr. Tellez at patient bedside. Normal [facility] ED Nursing Note Pt changed into 2 go wns and wanded by officer. Pt has 1 belonging bag. with pt in 47. Normal [facility] ED Provider Noteon ED Provider Note Emergency Department Encounter [facility] EMERGENCY DEPT Patient: Neal Larios : 1990 Date of Evaluation: 08/04/2024 ED Supervising Physician: Madelyn Crain MD I personally evaluated Annamarie Larios and made/approved the management plan and take responsibility for the patient management. This will serve as my Supervisory note and shared attestation. I did perform a substantive portion of the visit including all aspects of the Medical Decision Making. I wore appropriate PPE for the entirety of this encounter. In brief, Neal Larios is a 34 y.o. that presents to the emergency department for depression. Patient sent from [facility] for medical clearance. Patient presented there with his mother who has been worried about him. He states he had some social issues ongoing with his ex partner. Denies any abuse. Denies hallucinations alcohol drug use homicidal thoughts. Apparently at [facility] he endorsed SI but denies that here. Denies prior attempts. States he is not on any psychiatric medications but he was given Ativan and hydroxyzine reportedly at [facility]. He lives at home with his 10-year-old daughter he states. Focused exam: Vitals reviewed afebrile nontoxic head atraumatic neck supple heart sounds regular no respiratory distress moving all extremities equally appears to be depressed with flat affect calm cooperative Brief ED course/MDM: 34-year-old male presents for depression and psych eval. Differential depression, anxiety, suicidal thoughts. Plan for medical clearance labs and pink slipped. Will have psych evaluate once medically cleared. Medical history impacting this was includes anxiety. Social history impacting this visit includes no drug abuse reported Diagnostics interpreted by me: none I personally discussed the patient's management with other clinicians: none All diagnostic, treatment, and disposition decisions were made by myself in conjunction with the Resident. I also supervised díaz portions of any procedures performed by the Resident. For all further details of the patient's emergency department visit, please see their documentation. (Comment: Please note this report has been produced using speech recognition software and may contain errors related to that system including errors in grammar, punctuation, and spelling, as well as words and phrases that may be inappropriate. If there are any questions or concerns please feel free to contact the dictating provider for clarification.) Madelyn Crain MD [facility] Madelyn Crain MD 08/04/24 0141 [facility] ED Provider Note EMERGENCY DEPARTMENT ENCOUNTER Pt Name: Neal Larios Birthdate 1990 Date of evaluation: 08/04/2024 ED Provider: Prosper Tellez DO CHIEF COMPLAINT Chief Complaint Patient presents with Suicidal Patient was sent from [facility] for medical clearance. Patient is depressed. Patient denies SI to RN. Patient told [facility] that he is SI. HISTORY OF PRESENT ILLNESS (Location/Symptom, Timing/Onset, Context/Setting, Quality, Duration, Modifying Factors, Severity) Note limiting factors. I wore appropriate PPE for the entirety of this encounter. HPI Neal Larios is a 34 y.o. who presents to the emergency department for psychiatric evaluation. Patient describes that he has manic cycling over the last week. When questioned about this he describes feeling depressed and wanting to get help. He denies any SI or HI here however he did state to personnel at [facility] he does have SI. No drugs or alcohol. No visual or auditory hallucinations. Nursing Notes were reviewed. Limitations to history: None Outside historians: None REVIEW OF SYSTEMS Review of Systems Psychiatric/Behavioral: Negative for hallucinations, sleep disturbance and suicidal ideas. The patient is not hyperactive. Pertinent positives and negatives as per HPI. PAST MEDICAL HISTORY Past Medical History: Diagnosis Date 2019 novel coronavirus disease (COVID-19) 04/2021 ADHD (attention deficit hyperactivity disorder) Allergic Anxiety Since COVID 04/2021 Eczema IBS (irritable bowel syndrome) [place] exposure MRSA (methicillin resistant staph aureus) culture positive Substance abuse ([facility]) ([facility]) SURGICAL HISTORY Past Surgical History: Procedure Laterality Date APPENDECTOMY RETINAL DETACHMENT SURGERY SPLENECTOMY, TOTAL TONSILLECTOMY TONSILLECTOMY AND ADENOIDECTOMY (HISTORICAL) TYMPANOSTOMY TUBE PLACEMENT CURRENT MEDICATIONS Previous Medications FAMOTIDINE (PEPCID) 40 MG TABLET take 1 tablet by mouth every morning MUPIROCIN (BACTROBAN) 2 % OINTMENT apply to affected area twice a day if needed ALLERGIES Cephalexin, Cephalosporins, Citronella oil, and Penicillins FAMILY HISTORY Family History Problem Relation Name Age of Onset No Known Problems Mother No Known Problems Father Arthritis Maternal Grandmother Cayla Bass Alcohol abuse Paternal Grandfather Madelyn Larios Diabetes Mother's Brother Ulysses Bass SOCIAL HISTORY Social History Socioeconomic History Marital status: Single Tobacco Use Smoking status: Former Current packs/day: 0.00 Types: Cigarettes Quit date: 05/19/2015 Years since quittin.2 Smokeless tobacco: Never Vaping Use Vaping status: Never Used Substance and Sexual Activity Alcohol use: Not Currently Comment: Use to drink Drug use: Not Currently Types: Marijuana Comment: Use to smoke Sexual activity: Not Currently Partners: Female control/protection: Abstinence Social History Narrative Lives at home with daughter 9 yo (Mai) 3rd grade. . Her biological mom lives in [place]. No significant other right now. Has 2 cats at home. Social Drivers of Health Financial Resource Strain: Low Risk (05/01/2023) Overall Financial Resource Strain (CARDIA) Difficulty of Paying Living Expenses: Not hard at all Food Insecurity: No Food Insecurity (05/01/2023) Hunger Vital Sign Worried About Running Out of Food in the Last Year: Never true Ran Out of Food in the Last Year: Never true Transportation Needs: No Transportation Needs (05/01/2023) PRAPARE - Transportation Lack of Transportation (Medical): No Lack of Transportation (Non-Medical): No Physical Activity: Sufficiently Active (05/01/2023) Exercise Vital Sign Days of Exercise per Week: 5 days Minutes of Exercise per Session: 50 min Housing Stability: Low Risk (05/01/2023) Housing Stability Vital Sign Unable to Pay for Housing in the Last Year: No Number of Places Lived in the Last Year: 1 Unstable Housing in the Last Year: No SCREENINGS PHYSICAL EXAM ED Triage Vitals [08/04/24 0106] Temp Heart Rate Resp BP 37.4 ?C (99.4 ?F) 105 18 (!) 137/97 SpO2 Temp Source Heart Rate Source Patient Position 97 % Temporal Monitor -- BP Location FiO2 (%) -- -- Physical Exam Vitals and nursing note reviewed. Constitutional: General: He is not in acute distress. Appearance: Normal appearance. He is normal weight. He is not ill-appearing, toxic-appearing or diaphoretic. HENT: Head: Normocephalic and atraumatic. Right Ear: External ear normal. Left Ear: External ear normal. Nose: Nose normal. Mouth/Throat: Mouth: Mucous membranes are moist. Eyes: Extraocular Movements: Extraocular movements intact. Cardiovascular: Rate and Rhythm: Normal rate. Pulmonary: Effort: Pulmonary effort is normal. Abdominal: General: Abdomen is flat. Palpations: Abdomen is soft. Tenderness: There is no abdominal tenderness. Musculoskeletal: General: Normal ran (more content not included)... Normal [facility] ETHANOLon 08-04-2024 ETHANOL IN SER/PLAS 274 mg/dL High <10 [facility] Comment on above: Result Comment: MELISSA Centeno COMMENTS: FITTER ARMAMENT depression is seen >100 mg/dL. NOTE: This result is for medical treatment only. Analysis performed using non-forensic procedures. Performed By: #### L AB46, LAB62, LAB17 ####Injection Moulding Machine Operator: YOHANA JARQUIN ([id number])[facility] ([address] Ethanol (Bld) [Mass/Vol]on 0 08-04-2024 Ethanol [Mass/Vol] 274 mg/dL High NINF - 10 mg/dL [facility] FITTER ARMAMENT depression is se en >100 mg/dL. NOTE: This result is for medical treatment only. Analysis performed using non-forensic procedures. [facility] Laboratory - Chemistry and C hemistry - challengeon 08-04-2024 CK [Catalytic activity/Vol] 355 U/L High 30 - 185 U/L [facility] Laboratory - Drug toxicology on 08-04-2024 Amphetamines Screen method >1000 ng/mL Ql (U) Negative [facility] Barbiturates Screen method >200 ng/mL Ql (U) Negative [facility] Benzodiazepines Ql (U) Negative [facility] Methadone Screen Ql (U) Negative S [facility] Opiates Screen Ql (U) Negative [facility] oxyCODONE Ql (U) Negative [facility] Phencyclidine Ql (U) Negative [facility] - Microbiology an d Antimicrobial susceptibilityOrdered By: Pilar Burkett on 08-04-2024 SARS-CoV-2 (COVID-19) Ag IA.rapid Ql (Resp) Negative Negative [facility] Comment on above: A negative result do es not rule out the possibility of SARS-CoV-2 infection. NAAT-based methods should be considered for symptomatic patients presenting greater than seven days after onset of symptoms. Method: Lateral flow immunoassay. Fact sheets for healthcare providers and patients can be found at the following sites: https://www.UserZoom.gov/media/773228/download https://www.UserZoom.gov/media/812218/download No Panel Informationon 08-04 Interpretation and review of laboratory results Abnormal [facility] COCAINE METAB. SCREEN Negative [facility] FENTANYL SCREEN, UR QUAL Negative [facility] The expected value f or all of the drugs listed above is Negative. The following drugs or drug groups have been screened for by Immunoassay at the following thresholds: Amphetamine class (1000 ng/mL) Barbiturates (200 ng/mL) Benzodiazepines (200 ng/mL) Cocaine (300 ng/mL) Methadone (300 ng/mL) Opiates (300 ng/mL) Oxycodone (100 ng/mL) PCP (25 ng/mL) Fentanyl (1.0 ng/ml) NOTE: These results are for medical treatment only. Analysis performed using non-forensic procedures. POSITIVE results are NOT confirmed by a more specific alternative method unless requested. If confirmation is needed, request confirmation under separate order. [facility] P Vail 58 degrees [facility] MI Interval 62 ms [facility] QRS Vail 45 degrees [facility] QRSD Interval 89 ms [facility] QT Interval 381 ms [facility] QTC Interval 403 ms [facility] T Wave [place] 31 degrees [facility] Sinus rhythm Short MI interval no stemi artifact Electronically Signed On 08-04-2024 01:38:44 EST by Madelyn Zavala MD - 08/04/2024 IMPRESSION: Sinus rhythm Short MI interval no stemi artifact Electronically Signed On 08-04-2024 01:38:44 EST by Madelyn Crain [facility] SARS-COV-2 ANTIGENon 025 SARS-COV-2 ANTIGEN SARS-COV-2 ANTIGEN -BINAX Reference Negative Negative A negative result does not rule out the possibility of SARS-CoV-2 infection. NAAT-based methods should be considered for symptomatic patients presenting greater than seven days after onset of symptoms. Method: Lateral flow immunoassay. Fact sheets for healthcare providers and patients can be found at the following sites: https://www.fda.gov/medi a/926899/download https://www.fda.gov/medi a/621100/download Normal [facility] Comment on above: Performed By: #### L [id number] ####Injection Moulding Machine Operator: YOHANA JARQUIN ([id number])[facility] ([facility])[address] [place] [address] SARS-CoV-2 (COVID-19) Ag IA. rapid Ql (Resp)Ordered By: Pilar Burkett on 08-04-2024 Interpretation and review of laboratory results Normal [facility] Urinalysis complete panel (U )Ordered By: Nicolás Orellana on 08-04-2024 Bacteria LM.HPF (Urine sed) [#/Area] Negative Negative /HPF [facility] Bilirubin Ql (U) Negative Negative mg/dL [facility] Clarity (U) Clear Clear [facility] Color (U) Yellow Lt. Yellow [facility] Epithelial cells.squamous LM.HPF (Urine sed) [#/Area] 0-2 [facility] Glucose Ql (U) Normal Normal (<70) mg/dL [facility] Hemoglobin Ql (U) 0.1 mg/dL Abnormal Negative [facility] Hyaline casts Auto (Urine sed) [#/Area] Negative Negative /LPF [facility] Interpretation and review of laboratory results Abnormal [facility] Ketones (U) [Mass/Vol] Negative Negat danielle mg/dL [facility] Leukocyte esterase Test strip Ql (U) Negative Negative [place]/uL [facility] Mucus LM.HPF (Urine sed) [#/Area] Few Negative /LPF [facility] Nitrite Ql (U) Negative Negative [facility] pH (U) 7.0 [pH] 5.0 - 8.0 pH [facility] Protein (U) [Mass/Vol] 600 mg/dL Abnormal Negative [facility] RBC LM.HPF (Urine sed) [#/Area] 0-2 [facility] Specific gravity (U) [Rel density] 1.025 1.005 - 1.030 [facility] Urobilinogen (U) [Mass/Vol] Normal Normal (0-1) mg/dL [facility] WBC LM.HPF (Urine sed) [#/Area] 0-2 [facility] Vital signson 08-04-2024 Heart rate 67 /min bpm [facility] 36on 01-16-2024 36 Rx sent. Follow up a s scheduled. [facility] 36 Prescription Request : Last medication check: 10/25/22 Last physical exam: 05/01/23 Next scheduled appointment: 05/03/24 Last date of refill on this medication 07/25/23 [facility] CNOVon 08-13-2023 CN Office Visit (UCWSTR ) -------- ANNAMARIE LARIOS ([id number]) 1990 M Date Time Provider Department 08/13/23 7:00 PM NATY NAGY [facility] During your visit today, we recorded the following information about you: Temperature Pulse Respiration Blood pressure 101.5 degrees 122/minute 18/minute 142/86 Weight 89.8 kg Naty Nagy, KEYONA.LITHOGRAPHIC ETCHER 08/14/2023 9:40 AM Signed This note was created using NoteWriter. Subjective Annamarie Larios is a 33 year old male. 33 year old male with no PMH presents with acute onset fever that started yesterday. Pertinent positives include fever tmax 101.7, body aches, muscle cramps, and dry cough. Pertinent negatives include GI upset, decreased appetite, rhinorrhea, dizziness, dyspnea, ear pain and eye irritation. Daughter tested positive for strep throat last week. The history is provided by the patient. Fever This is a new problem. The current episode started 12 to 24 hours ago. The problem occurs constantly. The problem has not changed since onset.The maximum temperature noted was 101 to 101.9 F. Associated symptoms include muscle aches and cough. Pertinent negatives include no chest pain, no diarrhea, no vomiting, no congestion, no headaches and no sore throat. Treatments tried: aspirin. The treatment provided no relief. PAST MEDICAL HISTORY Diagnosis Date ADHD (attention deficit hyperactivity disorder) Bipolar 1 disorder ([facility]) Eczema Hx MRSA infection IBS (irritable bowel syndrome) Substance abuse ([facility]) No past surgical history on file. ALLERGIES Cephlasporins [Cephalosporins] and Penicillins MEDICATIONS famotidine (PEPCID) 40 mg tablet Take 40 mg by mouth. azithromycin (ZITHROMAX) 500 mg tablet Take 1 tablet by mouth once daily for 5 days. EPINEPHrine (EPIPEN 2-KAMILA) 0.3 mg/0.3 mL auto-injector Inject 0.3 mL intramuscularly as needed. (Patient not taking: Reported on 05/15/2022) No family history on file. Social History Tobacco Use Smoking status: Every Day Smokeless tobacco: Never Review of Systems Constitutional: Positive for chills and fever. Negative for activity change, appetite change and fatigue. HENT: Negative for congestion, ear discharge, ear pain, rhinorrhea, sinus pressure, sinus pain and sore throat. Eyes: Negative for pain, discharge, redness and itching. Respiratory: Positive for cough. Negative for chest tightness and shortness of breath. Cardiovascular: Negative for chest pain and palpitations. Gastrointestinal: Negative for abdominal pain, diarrhea, nausea and vomiting. Musculoskeletal: Positive for arthralgias and myalgias. Skin: Negative for color change and rash. Neurological: Negative for dizziness, light-headedness and headaches. Objective BP 142/86 Pulse (!) 122 Temp (!) 38.6 ?C (101.5 ?F) Resp 18 Wt 89.8 kg (198 lb) SpO2 97% Physical Exam Vitals reviewed. Constitutional: General: He is awake. He is not in acute distress. Appearance: Normal appearance. He is normal weight. He is not ill-appearing, toxic-appearing or diaphoretic. HENT: Head: Normocephalic. Right Ear: Hearing, tympanic membrane, ear canal and external ear normal. No decreased hearing noted. No laceration, drainage, swelling or tenderness. No middle ear effusion. There is no impacted cerumen. No foreign body. No mastoid tenderness. No PE tube. No hemotympanum. Tympanic membrane is not injected, scarred, perforated, erythematous, retracted or bulging. Tympanic membrane has normal mobility. Left Ear: Hearing, tympanic membrane, ear canal and external ear normal. No decreased hearing noted. No laceration, drainage, swelling or tenderness. No middle ear effusion. There is no impacted cerumen. No foreign body. No mastoid tenderness. No PE tube. No hemotympanum. Tympanic membrane is not injected, scarred, perforated, erythematous, retracted or bulging. Tympanic membrane has normal mobility. Nose: Nose normal. No nasal deformity, septal deviation, signs of injury, laceration, nasal tenderness, mucosal edema, congestion or rhinorrhea. Right Nostril: No foreign body, epistaxis, septal hematoma or occlusion. Left Nostril: No foreign body, epistaxis, septal hematoma or occlusion. Right Turbinates: Not enlarged, swollen or pale. Left Turbinates: Not enlarged, swollen or pale. Right Sinus: No maxillary sinus tenderness or frontal sinus tenderness. Left Sinus: No maxillary sinus tenderness or frontal sinus tenderness. Mouth/Throat: Lips: Gifford. No lesions. Mouth: Mucous membranes are moist. No oral lesions. Tongue: No lesions. Palate: No lesions. Pharynx: Oropharynx is clear. Uvula midline. Posterior oropharyngeal erythema present. No pharyngeal swelling, oropharyngeal exudate or uvula swelling. Tonsils: No tonsillar exudate or tonsillar abscesses. 2+ on the right. 2+ on the left. Eyes: General: Lids are normal. No aller (more content not included)... Normal [facility] STREP A MOLECULAR (POC)on Procedural Control Valid [facility] Strep A (POCT) Positive Abnormal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 175.26 cm [facility] Work Phone: 01-19-2022 16:27-0400 Body mass index (BMI) [Ratio] 25.1 kg/m2 [facility] Work Phone: 01-19-2022 16:27-0400 Body temperature 98.6 [degF] [facility] Work Phone: 01-19-2022 16:27-0400 Body weight 77.11 kg [facility] Work Phone: 01-19-2022 16:27-0400 Diastolic blood pressure 91 mm[Hg] [facility] Work Phone: 01-19-2022 16:27-0400 Heart rate 88 /min [facility] Work Phone: 01-19-2022 16:27-0400 SaO2% (BldA) [Mass fraction] 100 % [facility] Work Phone: 01-19-2022 16:27-0400 Systolic blood pressure 131 mm[Hg] [facility] Work Phone: Encounters Encounter Date Encounter Type Care Provider Facility Start: 08-04-2024 End: 08-04-2024 Emergency department patient visit Madelyn Crain MD Work Phone: [facility] Comment on above: Depression, unspecif ied depression type (Primary Dx) Start: 08-13-2023 End: 08-13-2023 ambulatory NIKITA SORENSEN Facility:[facility] Start: 08-13-2023 End: 08-13-2023 Patient encounter procedure Naty Gabby NURSE FIRST AID.LITHOGRAPHIC ETCHER Work Phone: [facility] Comment on above: Strep throat (Primar y Dx) Start: 07-25-2023 Refill Mare bateman NURSE FIRST AID - LITHOGRAPHIC ETCHER Work Phone: [facility] Start: 06-30-2023 Refill Mare bateman NURSE FIRST AID - LITHOGRAPHIC ETCHER Work Phone: [facility] Start: 05-25-2023 Refill Lanny Claudio NURSE FIRST AID - LITHOGRAPHIC ETCHER Work Phone: [facility] Start: 05-20-2023 End: 05-20-2023 Subsequent hospital visit by physician Nasrin Jaffe MD Work Phone: [facility] Comment on above: Mass of soft tissue of face (Primary Dx); Other specified soft tissue disorders Start: 05-02-2023 Telephone encounter Mare vargas NURSE FIRST AID - LITHOGRAPHIC ETCHER Work Phone: [facility] Comment on above: Results Start: 05-01-2023 End: 05-01-2023 Patient encounter procedure Mare Robb NURSE FIRST AID - LITHOGRAPHIC ETCHER Work Phone: [facility] Work Phone: Start: 05-01-2023 End: 05-01-2023 Periodic preventive med est patient 18-39 yrs Mare Robb NURSE FIRST AID - LITHOGRAPHIC ETCHER Work Phone: [facility] Comment on above: Annual physical exam (Primary Dx); Need for hepatitis C screening test; Screening for HIV (human immunodeficiency virus); Screening for lipid disorders Start: 04-30-2023 Telephone encounter Nasrin Jaffe MD Work Phone: [facility] Comment on above: Surgery Scheduling ( [facility]) Start: 04-30-2023 End: 04-30-2023 Office outpatient visit 15 minutes Edwina Delaney PA-C Work Phone: [facility] Comment on above: Mass of soft tissue of face (Primary Dx) Start: 04-25-2023 Refill Nikita Sorensen MD Work Phone: [facility] Start: 04-25-2023 Telephone encounter Nikita Angulo MD Work Phone: [facility] Comment on above: Release of Informati on Start: 04-19-2023 End: 04-19-2023 Emergency department patient visit [facility] Work Phone: Start: 10-24-2022 ambulatory Malena Polanco RN [facility] Start: 10-24-2022 Patient encounter procedure Malena Polanco RN [facility] Start: 10-21-2022 End: 10-21-2022 ambulatory NIKITA SORENSEN Facility:[facility] Start: 10-21-2022 End: 10-21-2022 Office outpatient visit 15 minutes Didier Kilgore NURSE FIRST AID.LITHOGRAPHIC ETCHER Work Phone: [facility] Comment on above: Sore throat (Primary Dx); Viral URI Start: 09-21-2022 End: 09-21-2022 ambulatory NIKITA SORENSEN Facility:[facility] Start: 09-21-2022 End: 09-21-2022 Patient encounter procedure Iain ALVAREZC Work Phone: [facility] Comment on above: Viral URI (Primary D x) Start: 04-29-2022 End: 04-29-2022 Office outpatient visit 15 minutes Dora Sexton PA-C Work Phone: [facility] Comment on above: Nausea (Primary Dx) Start: 02-05-2022 End: 02-05-2022 Patient encounter procedure Jj Barry APRN.LITHOGRAPHIC ETCHER Work Phone: [facility] Comment on above: Rash (Primary Dx) Start: 01-19-2022 End: 01-19-2022 Emergency department patient visit [facility] Start: 06-07-2021 End: 06-07-2021 Subsequent hospital visit by physician Chetna Coburn NURSE FIRST AID - LITHOGRAPHIC ETCHER Work Phone: [facility] Comment on above: COVID-19 Procedures Date Procedure Procedure Detail Performing Clinician Start: 08-04-2024 Ecg routine ecg w/le ast 12 lds trcg only w/o i&r Madelyn Crain MD Work Phone: Start: 08-04-2024 SARS-CoV-2 (COVID-19 ) Ag [Presence] in Respiratory specimen by Rapid immunoassay Madelyn Crain MD Work Phone: Start: 08-04-2024 Urinalysis complete panel - Urine Madelyn Crain MD Work Phone: Start: 08-04-2024 Urnls dip stick/tabl et reagent auto microscopy Madelyn Crain MD Work Phone: Start: 08-04-2024 Comprehensive metabo lic panel Madelyn Crain MD Work Phone: Start: 08-04-2024 End: 08-04-2024 Drug test def 1-7 classes Madelyn monroe MD Work Phone: Start: 08-13-2023 STREP A MOLECULAR (POC) [facility] Provider Start: 05-19-2023 Lipid panel Mare Meghann vargas NURSE FIRST AID - LITHOGRAPHIC ETCHER Work Phone: Start: 05-19-2023 Transferase aspartat e amino ast sgot Marebernabe Strongenthal NURSE FIRST AID - LITHOGRAPHIC ETCHER Work Phone: Start: 05-19-2023 Lipid 1996 panel - S nan or Plasma Madelyn Crain MD Work Phone: Start: 05-01-2023 Adult depression scr eening assessment Mare Bridenthal NURSE FIRST AID - LITHOGRAPHIC ETCHER Work Phone: Start: 10-21-2022 STREP A MOLECULAR (POC) Naty Nagy NURSE FIRST AID.LITHOGRAPHIC ETCHER Work Phone: Start: 09-21-2022 STREP A MOLECULAR (POC) Iain Lobo PA-C Work Phone: Start: 04-29-2022 STREP A MOLECULAR (POC) Dora Sexton PA-C Work Phone: Start: 06-07-2021 Radiologic exam ches t 2 views Chetna Coburn NURSE FIRST AID - LITHOGRAPHIC ETCHER Work Phone: Plan of Treatment Date Care Activity Detail Author Start: 2064 RSV Immunization for Adults (1 - 1-dose 75+ series) RSV Immunization for Adults (1 - 1-dose 75+ series) [facility] Start: 2049 RSV Immunization aged 60 or older (1 - 1-dose 60+ series) RSV Immunization aged 60 or older (1 - 1-dose 60+ series) [facility] Start: 2039 Zoster Vaccines (1 of 2) Zoster Vaccines (1 of 2) [facility] Start: 05-19-2028 Lipid panel Lipid Panel [facility] Start: 05-03-2024 End: 05-03-2024 Patient encounter procedure 05/03/2024 8:00 AM EST Office Visit [facility] [address] [place] [address] Taeenthdarío Mare, NURSE FIRST AID - LITHOGRAPHIC ETCHER [address] [place] [address] [place] [address] [facility] Start: 05-01-2024 Depression Screening Depression Screening [facility] Start: 04-30-2024 End: 04-30-2024 Patient encounter procedure 04/30/2024 7:00 AM EDT Office Visit [facility] [address] [place] [address] [place] [address] Taeenthdarío Mare, NURSE FIRST AID - LITHOGRAPHIC ETCHER [address] [place] [address] [place] [address] [facility] Start: 02-29-2024 COVID-19 Vaccine ( season) COVID-19 Vaccine () [facility] Start: 02-29-2024 Influenza vaccination Influenza Vaccine (#1) [facility] Start: 10-30-2023 Depression Monitoring Depression Monitoring [facility] Start: 07-16-2023 End: 07-16-2023 Patient encounter procedure 07/16/2023 10:30 AM EST Office Visit [facility] [address] [place] [address] [place] [id number] Edwina Delaney PA-C [address] [place] [id number] [facility] Start: 07-08-2023 End: 07-08-2023 Admission to same day surgery center 07/08/2023 7:30 AM EST - 07/08/2023 8:30 AM EST Surgery [facility] MAIN OR [address] [place] [phone] Nasrin Jaffe MD [address] [facility] [address] [place] [place] [id number] EXCISION OF SOFT TISSUE MASS OF THE RIGHT FOREHEAD WITH IMMEDIATE VERSUS COMPLEX CLOSURE [64468 (CPT )] [facility] MAIN OR Comment on above: EXCISION OF SOFT TISSUE MASS OF THE RIGH T FOREHEAD WITH IMMEDIATE VERSUS COMPLEX CLOSURE [44927 (CPT )] Start: 07-08-2023 End: 07-08-2023 Exc b9 les mrgn xcp sk tg f/e/e/n/l/m 1.1-2.0cm EXCISION BENIGN LESION FACE EARS EYELIDS NOSE LIPS MUCOUS MEMBRANES 1.1 TO 2.0 CM Other specified soft tissue disorders 07/08/2023 7:30 AM [facility] Operating Room Start: 07-08-2023 End: 07-08-2023 Repair complex f/c/c/m/n/ax/g/h/f 1.1-2.5 cm REPAIR COMPLEX WOUND OF FOREHEAD CHEEK CHIN MOUTH NECK AXILLAE GENITALIA HANDS FEET 1.1 TO 2.5 CM Other specified soft tissue disorders 07/08/2023 7:30 AM [facility] Operating Room Start: 07-08-2023 End: 07-08-2023 Repair intermediate f/e/e/n/l&/muc 2.5 cm/< REPAIR INTERMEDIATE WOUNDS OF FACE EARS EYELIDS NOSE LIPS MUCOUS MEMBRANES 2.5 CM OR LESS Other specified soft tissue disorders 07/08/2023 7:30 AM [facility] Operating Room Start: 07-08-2023 Subsequent hospital visit by physician 07/08/2023 7:30 AM [facility] Hospital Encounter [facility] MAIN OR [address] [place] [address] Nasrin Jaffe MD [address] [place] [phone] [facility] MAIN OR Start: 06-30-2023 Depression Assessment Depression Assessment [facility] Start: 06-01-2023 End: 05-02-2024 Alanine aminotransferase [Enzymatic activity/volume] in Serum or Plasma ALT Lab Routine Mixed hyperlipidemia Expected: 06/01/2023 (Approximate), Expires: 05/02/2024 [facility] Work Phone: Comment on above: Expected: 06/01/2023 (Approximate), Expi res: 05/02/2024 Start: 06-01-2023 End: 05-02-2024 Aspartate aminotransferase [Enzymatic activity/volume] in Serum or Plasma AST Lab Routine Mixed hyperlipidemia Expected: 06/01/2023 (Approximate), Expires: 05/02/2024 [facility] Comment on above: Expected: 06/01/2023 (Approximate), Expi res: 05/02/2024 Start: 06-01-2023 End: 05-02-2024 Lipid 1996 panel - Serum or Plasma Lipid panel Lab Routine Mixed hyperlipidemia Expected: 06/01/2023 (Approximate), Expires: 05/02/2024 [facility] Comment on above: Expected: 06/01/2023 (Approximate), Expi res: 05/02/2024 Start: 05-30-2023 End: 05-30-2023 Clinical Support 05/30/2023 8:00 AM EST Clinical Support [facility] [address] [facility] [address] [place], [place] [phone] [facility] Start: 05-28-2023 End: 05-28-2023 Patient encounter procedure 05/28/2023 10:45 AM EST Office Visit [facility]ive Surgery [address] [place] [phone] Edwina Delaney PA-C [address] [place] [phone] [facility] Start: 05-20-2023 End: 05-20-2023 Admission to same day surgery center 05/20/2023 11:00 AM EST - 05/20/2023 12:00 PM EST Surgery [facility] MAIN OR [address] [place] [phone] Nasrin Jaffe MD [address] [place] [address] [address] [place], [place] [phone] EXCISION OF SOFT TISSUE MASS OF THE RIGHT FOREHEAD WITH IMMEDIATE VERSUS COMPLEX CLOSURE [59004 (CPT )] [facility] MAIN OR Comment on above: EXCISION OF SOFT TISSUE MASS OF THE RIGH T FOREHEAD WITH IMMEDIATE VERSUS COMPLEX CLOSURE [34332 (CPT )] Start: 05-20-2023 End: 05-20-2023 Anesthesia consultation 05/20/2023 11:00 AM EST Anesthesia Event [facility] MAIN OR [address] [facility] [place] [address] Josselyn Dobson RN [facility] MAIN OR Start: 05-20-2023 End: 05-20-2023 Exc b9 les mrgn xcp sk tg f/e/e/n/l/m 1.1-2.0cm EXCISION BENIGN LESION FACE EARS EYELIDS NOSE LIPS MUCOUS MEMBRANES 1.1 TO 2.0 CM Other specified soft tissue disorders 05/20/2023 11:00 AM EST [facility] Operating Room Start: 05-20-2023 End: 05-20-2023 Repair complex f/c/c/m/n/ax/g/h/f 1.1-2.5 cm REPAIR COMPLEX WOUND OF FOREHEAD CHEEK CHIN MOUTH NECK AXILLAE GENITALIA HANDS FEET 1.1 TO 2.5 CM Other specified soft tissue disorders 05/20/2023 11:00 AM EST [facility] Operating Room Start: 05-20-2023 End: 05-20-2023 Repair intermediate f/e/e/n/l&/muc 2.5 cm/< REPAIR INTERMEDIATE WOUNDS OF FACE EARS EYELIDS NOSE LIPS MUCOUS MEMBRANES 2.5 CM OR LESS Other specified soft tissue disorders 05/20/2023 11:00 AM EST [facility] Operating Room Start: 05-20-2023 Subsequent hospital visit by physician 05/20/2023 11:00 AM EST Hospital Encounter [facility] MAIN OR [address] [place] [address] Nasrin Jaffe MD [address] [place] [phone] [facility] MAIN OR Start: 05-19-2023 End: 05-19-2023 Clinical Support 05/19/2023 7:30 AM EST Clinical Support [facility] [address] [place], [place] [phone] [facility] Start: 05-02-2023 Pneumococcal vaccination Pneumococcal Vaccine (2 of 2 - PCV) [facility] Start: 05-02-2023 Pneumococcal Vaccine: Pediatrics (0 to 5 Years) and At-Risk Patients (6 to 49 Years) (3 of 3 - PCV) Pneumococcal Vaccine: Pediatrics (0 to 5 Years) and At-Risk Patients (6 to 49 Years) (3 of 3 - PCV) [facility] Start: 05-02-2023 Pneumococcal Vaccine: Pediatrics (0 to 5 Years) and At-Risk Patients (6 to 64 Years) (3 - PCV) Pneumococcal Vaccine: Pediatrics (0 to 5 Years) and At-Risk Patients (6 to 64 Years) (3 - PCV) [facility] Start: 05-02-2023 Pneumococcal Vaccine: Pediatrics (0 to 5 Years) and At-Risk Patients (6 to 64 Years) (3 of 3 - PCV) Pneumococcal Vaccine: Pediatrics (0 to 5 Years) and At-Risk Patients (6 to 64 Years) (3 of 3 - PCV) [facility] Start: 05-01-2023 End: 05-01-2024 Comprehensive metabolic 1998 panel - Serum or Plasma Comprehensive metabolic panel Lab Routine Annual physical exam Expected: 05/01/2023 (Approximate), Expires: 05/01/2024 [facility] Comment on above: Expected: 05/01/2023 (Approximate), Expi res: 05/01/2024 Start: 05-01-2023 End: 05-01-2024 Hepatitis C virus Ab [Presence] in Serum or Plasma by Immunoassay Hepatitis C antibody Lab Routine Need for hepatitis C screening test Expected: 05/01/2023 (Approximate), Expires: 05/01/2024 [facility] Comment on above: Expected: 05/01/2023 (Approximate), Expi res: 05/01/2024 Start: 05-01-2023 End: 05-01-2024 HIV 1+2 Ab+HIV1 p24 Ag [Presence] in Serum or Plasma by Immunoassay HIV-1 and HIV-2 Antigen-Antibody Screen Lab Routine Screening for HIV (human immunodeficiency virus) Expected: 05/01/2023 (Approximate), Expires: 05/01/2024 [facility] Comment on above: Expected: 05/01/2023 (Approximate), Expi res: 05/01/2024 Start: 05-01-2023 End: 05-01-2024 Lipid 1996 panel - Serum or Plasma Lipid panel Lab Routine Annual physical exam Screening for lipid disorders Expected: 05/01/2023 (Approximate), Expires: 05/01/2024 [facility] Work Phone: Comment on above: Expected: 05/01/2023 (Approximate), Expi res: 05/01/2024 Start: 05-01-2023 End: 05-01-2023 Patient encounter procedure 05/01/2023 9:20 AM EDT Office Visit [facility] [address] [place] [address] [place] [address] Mare Robb, NURSE FIRST AID - LITHOGRAPHIC ETCHER [address] [place] [address] [place] [address] [facility] Start: 04-30-2023 End: 04-30-2023 Patient encounter procedure 04/30/2023 1:30 PM EDT Office Visit [facility] [address] [place] [address] [place] [phone] Edwina Delaney PA-C [address] [place] [address] [place] [address] [facility] Start: 04-19-2023 [facility] Start: 02-28-2023 Influenza vaccination [facility] Start: 10-25-2022 End: 10-25-2022 Patient encounter procedure 10/25/2022 Office Visit [facility] Mare Robb, NURSE FIRST AID - LITHOGRAPHIC ETCHER [address] [facility] [address] [place] [address] [place] [address] [facility] Start: 06-30-2022 DEPRESSION ASSESSMENT DEPRESSION ASSESSMENT [facility] Start: 05-20-2022 Meningococcal (ACWY) vaccine (3 - Risk start 2-23 months series) [facility] Start: 02-28-2022 Influenza vaccination INFLUENZA (#1) [facility] Start: 06-30-2021 DEPRESSION ASSESSMENT DEPRESSION ASSESSMENT [facility] Start: 02-28-2021 Influenza vaccination Flu vaccine (#1) [facility] Start: 05-20-2018 Pneumococcal 0-64 years Vaccine (3 of 4 - PCV13) Pneumococcal 0-64 years Vaccine (3 of 4 - PCV13) [facility] Start: 07-15-2017 Hepatitis B Vaccine (3 of 3 - 3-dose series) Hepatitis B Vaccine (3 of 3 - 3-dose series) [facility] Start: 07-15-2017 Hepatitis B Vaccines (3 of 3 - 3-dose series) Hepatitis B Vaccines (3 of 3 - 3-dose series) [facility] Start: 07-15-2017 Hepatitis B Vaccines (4 of 4 - 4-dose series) Hepatitis B Vaccines (4 of 4 - 4-dose series) [facility] Start: 07-15-2017 Meningococcal Vaccine (2 - Risk 2-dose series) Meningococcal Vaccine (2 - Risk 2-dose series) [facility] Start: 2008 Urine microalbumin profile DTAP,TDAP,TD (1 - Tdap) [facility] Start: 2008 Zoster Vaccines (1 of 2) Zoster Vaccines (1 of 2) [facility] Start: 2007 HEPATITIS C SCREENING HEPATITIS C SCREENING [facility] Start: 2007 Hepatitis C screening Hepatitis C Screening [facility] Start: 2007 HIV SCREENING HIV SCREENING [facility] Start: 2007 HIV screening HIV Screening [facility] Start: 2004 HIV screening HIV screen [facility] Start: 2002 Varicella vaccination Varicella Vaccines (1 of 2 - 13+ 2-dose series) [facility] Start: 03-17-2002 Varicella vaccination Varicella Vaccines (1 of 2 - 2-dose childhood series) [facility] Start: 2001 Adult depression screening assessment DEPRESSION SCREENING [facility] Start: 2001 COVID-19 Vaccine (1) COVID-19 Vaccine (1) [facility] Start: 2000 DTaP/Tdap/Td vaccine (6 - Tdap) DTaP/Tdap/Td vaccine (6 - Tdap) [facility] Start: 2000 DTaP/Tdap/Td Vaccines (6 - Tdap) DTaP/Tdap/Td Vaccines (6 - Tdap) [facility] Start: 2000 Urine microalbumin profile DTaP,Tdap,Td Vaccine (6 - Tdap) [facility] Start: 1999 Meningococcal B vaccine (1 of 4 - Increased Risk Bexsero 2-dose series) Meningococcal B vaccine (1 of 4 - Increased Risk Bexsero 2-dose series) [facility] Start: 1999 Meningococcal B Vaccine (1 of 4 - Increased Risk) Meningococcal B Vaccine (1 of 4 - Increased Risk) [facility] Start: 1995 PNEUMOCOCCAL (1 - PCV) PNEUMOCOCCAL (1 - PCV) [facility] Start: 09-11-1990 Hib vaccine (1 of 1 - Risk 1-dose series) Hib vaccine (1 of 1 - Risk 1-dose series) [facility] Start: 09-11-1990 HIB Vaccines (1 of 1 - Risk 1-dose series) HIB Vaccines (1 of 1 - Risk 1-dose series) [facility] Start: 1989 COVID-19 VACCINE (#1) COVID-19 VACCINE (#1) [facility] Start: 1989 HEPATITIS B (1 of 3 - 3-dose series) HEPATITIS B (1 of 3 - 3-dose series) [facility] Start: 1989 Hepatitis C screening Hepatitis C screen [facility] Start: 1989 HIV screening HIV Screening [facility] Patient Education [facility] Work Phone: Patient referral [facility] Work Phone: Tissue exam [facility] Work Phone: Comment on above: Release Upon Ordering for 1 Occurrences starting 05/20/2023 Immunizations Immunization Date Immunization Notes Care Provider Beck melendez 05-02-2022 pneumococcal polysaccharide vaccine, 23 valent Malena Polanco RN [facility] 04-12-2019 influenza, injectabl e, quadrivalent, preservative free [facility] NURSE FIRST AID - LITHOGRAPHIC ETCHER Work Phone: [facility] Work Phone: 04-12-2019 influenza virus vacc ine, unspecified formulation Malena Polanco RN [facility] 05-20-2017 hepatitis B vaccine, adult dosage [facility] NURSE FIRST AID - LITHOGRAPHIC ETCHER Work Phone: [facility] Work Phone: 05-20-2017 influenza virus vacc ine, unspecified formulation [facility] Work Phone: [facility] Work Phone: 05-20-2017 influenza, injectabl e, quadrivalent, contains preservative Malena Polanco RN [facility] 05-20-2017 Influenza, Quadv, 6 mo and older, IM (Fluzone, Flulaval) [facility] Work Phone: [facility] 05-20-2017 meningococcal oligosaccharide (groups A, C, Y and W-135) diphtheria toxoid conjugate vaccine (MCV4O) [facility] Work Phone: [facility] Work Phone: 05-20-2017 pneumococcal polysaccharide vaccine, 23 valent [facility] Work Phone: [facility] Work Phone: 05-20-2017 meningococcal vaccin e of unknown formulation and unknown serogroups [facility] Work Phone: [facility] Work Phone: 05-20-2016 hepatitis B vaccine, unspecified formulation [facility] Work Phone: [facility] Work Phone: 05-20-2016 meningococcal polysaccharide (groups A, C, Y and W-135) diphtheria toxoid conjugate vaccine (MCV4P) [facility] Work Phone: [facility] Work Phone: 05-20-2016 pneumococcal polysaccharide vaccine, 23 valent [facility] Work Phone: [facility] 05-31-2015 meningococcal polysaccharide (groups A, C, Y and W-135) diphtheria toxoid conjugate vaccine (MCV4P) [facility] Work Phone: [facility] Work Phone: 05-31-2015 pneumococcal polysaccharide vaccine, 23 valent [facility] Work Phone: [facility] Work Phone: 05-28-2015 influenza, injectabl e, quadrivalent, preservative free Chetna Coburn APRN - [facility] Work Phone: [facility] Work Phone: 02-17-2002 measles, mumps and rubella virus vaccine Chetna Coburn APRN - [facility] Work Phone: [facility] Work Phone: 02-18-1995 diphtheria, tetanus toxoids and acellular pertussis vaccine, unspecified formulation Chetna Coburn APRN - [facility] Work Phone: [facility] Work Phone: 02-18-1995 trivalent poliovirus vaccine, live, oral Chetna Coburn APRN - [facility] Work Phone: [facility] Work Phone: 12-21-1990 diphtheria, tetanus toxoids and pertussis vaccine Chetna Coburn APRN - [facility] Work Phone: [facility] Work Phone: 12-21-1990 measles, mumps and rubella virus vaccine Chetna Coburn APRN - [facility] Work Phone: [facility] Work Phone: 12-21-1990 trivalent poliovirus vaccine, live, oral Chetna Coburn APRN - [facility] Work Phone: [facility] Work Phone: 07-09-1990 haemophilus influenz ae type b vaccine, conjugate unspecified formulation Chetna Coburn APRN [facility] Work Phone: [facility] Work Phone: 07-09-1990 hepatitis B vaccine, pediatric or pediatric/adolescent dosage Chetna Coburn APRN - [facility] Work Phone: [facility] Work Phone: 03-03-1990 diphtheria, tetanus toxoids and pertussis vaccine Chetna Coburn APRN - [facility] Work Phone: [facility] Work Phone: 1989 diphtheria, tetanus toxoids and pertussis vaccine Chetna Coburn NURSE FIRST AID - LITHOGRAPHIC ETCHER Work Phone: [facility] Work Phone: 1989 trivalent poliovirus vaccine, live, oral Chetna Coburn NURSE FIRST AID - LITHOGRAPHIC ETCHER Work Phone: [facility] Work Phone: 1989 diphtheria, tetanus toxoids and pertussis vaccine Chetna Coburn NURSE FIRST AID - LITHOGRAPHIC ETCHER Work Phone: [facility] Work Phone: 1989 trivalent poliovirus vaccine, live, oral Chetna Coburn NURSE FIRST AID - LITHOGRAPHIC ETCHER Work Phone: [facility] Work Phone: Payers Date Payer Category Payer Commercial Managed C [facility] - [facility] [employer] [id number] 2023 Unknown [id number] 2023 Unknown [id number] 2022 Medicaid [id number] 2020 Medicaid [id number] 2018 Unknown [employer] [id number] 2018-Present [phone] [address] [place] [address] [id number] Self-pay SELF PAY INSURANCE [id number] Unknown [id number] Unknown [id number] Social History Date Type Detail Facility Start: 06-05-2015 End: 05-02-2022 Tobacco smoking status [facility] Ex-smoker [facility] Phone: End: 05-19-2015 History of tobacco use Current smoker [facility] Phone: Start: 06-05-2015 End: 05-02-2022 Tobacco use and exposure Smokeless tobacco non-user [facility] Phone: Start: 10-18-2019 End: 04-30-2023 Alcohol intake Current non-drinker of alcohol (finding) [facility] Phone: Start: 10-18-2019 End: 05-01-2023 Alcohol intake [facility] Phone: Start: 1990 Sex Assigned At Not on file [facility] [employer] Phone: Start: 01-19-2022 End: 04-19-2023 Tobacco smoking status [facility] Unknown [facility] Start: 06-18-2021 Occasional [facility] Start: 06-18-2021 None [facility] Start: 06-18-2021 Cigarettes [facility] Start: 1990 Sex Assigned At Male S [facility] [employer] Start: 01-29-2012 Tobacco smoking stat us [facility] Smokes tobacco daily [facility] Start: 02-05-2022 End: 08-13-2023 Alcohol intake Not Asked [facility] End: 05-19-2015 History of tobacco use Cigarette Smoker [facility] [employer] Start: 06-18-2022 End: 05-01-2023 Tobacco use panel [facility] [employer] Start: 05-01-2022 Gender identity Identifies as male gender (finding) [facility] Start: 05-01-2022 Sexual orientation Heterosexual (juan refugio) [facility] Start: 05-01-2023 End: 08-04-2024 Alcohol intake Ex-drinker (finding) [facility] How often to you hav e a drink containing alcohol? Never [facility] How many standard drinks containing alcohol do you have on a typical day? Patient does not drink [facility] (I/We) worried wheth er (my/our) food would run out before (I/we) got money to buy more. Never true [facility] In the past 12 month s, was there a time when you were not able to pay the mortgage or rent on time? No [facility] Start: 05-01-2023 Alcohol Comment Use to drink [facility] How often to you hav e a drink containing alcohol? 4 or more times a week [facility] How many standard drinks containing alcohol do you have on a typical day? 1 or 2 [facility] Start: 01-28-2022 Sex Male (finding) [facility] chris Clinical Notes 02-05-2022 to 08-04-2024 Jimmy Flood RN - 08/04/2024 4:28 AM Дмитрий Flood RN - 08/04/2024 4:28 AM Дмитрий Flood RN - 08/04/2024 4:26 AM ESTParas Pope - 08/04/2024 3:19 AM ESTDischarge Instructions Note Date & Type Note Facility 08-04-2024 Emergency department Note Complete report provided. To ed of [facility]. [facility] 08-04-2024 Emergency department Note Complete report provided. To ed of [facility]. A/ox3. Independent to stretcher. Discharged to [facility]. Belongings set with ems transport. Luzma Kapoor at bedside obtaining vitals. CHRISTO Fox giving patient warm blanket for comfort. EKG at patient bedside. Dr. Tellez at patient bedside. Pt changed into 2 gowns and wanded by officer. Pt has 1 belonging bag. with pt in 47. EMERGENCY DEPARTMENT ENCOUNTER Pt Name: Neal Larios Birthdate 1990 Date of evaluation: 08/04/2024 ED Provider: Prosper Tellez DO CHIEF COMPLAINT Chief Complaint Patient presents with Suicidal Patient was sent from [facility] for medical clearance. Patient is depressed. Patient denies SI to RN. Patient told [facility] that he is SI. HISTORY OF PRESENT ILLNESS (Location/Symptom, Timing/Onset, Context/Setting, Quality, Duration, Modifying Factors, Severity) Note limiting factors. I wore appropriate PPE for the entirety of this encounter. HPI Neal Larios is a 34 y.o. who presents to the emergency department for psychiatric evaluation. Patient describes that he has manic cycling over the last week. When questioned about this he describes feeling depressed and wanting to get help. He denies any SI or HI here however he did state to personnel at [facility] he does have SI. No drugs or alcohol. No visual or auditory hallucinations. Nursing Notes were reviewed. Limitations to history: None Outside historians: None REVIEW OF SYSTEMS Review of Systems Psychiatric/Behavioral: Negative for hallucinations, sleep disturbance and suicidal ideas. The patient is not hyperactive. Pertinent positives and negatives as per HPI. PAST MEDICAL HISTORY Past Medical History: Diagnosis Date 2019 novel coronavirus disease (COVID-19) 04/2021 ADHD (attention deficit hyperactivity disorder) Allergic Anxiety Since COVID 04/2021 Eczema IBS (irritable bowel syndrome) [place] exposure MRSA (methicillin resistant staph aureus) culture positive Substance abuse ([facility]) ([facility]) SURGICAL HISTORY Past Surgical History: Procedure Laterality Date APPENDECTOMY RETINAL DETACHMENT SURGERY SPLENECTOMY, TOTAL TONSILLECTOMY TONSILLECTOMY AND ADENOIDECTOMY (HISTORICAL) TYMPANOSTOMY TUBE PLACEMENT CURRENT MEDICATIONS Previous Medications FAMOTIDINE (PEPCID) 40 MG TABLET take 1 tablet by mouth every morning MUPIROCIN (BACTROBAN) 2 % OINTMENT apply to affected area twice a day if needed ALLERGIES Cephalexin, Cephalosporins, Citronella oil, and Penicillins FAMILY HISTORY Family History Problem Relation Name Age of Onset No Known Problems Mother No Known Problems Father Arthritis Maternal Grandmother Cayla Kali Alcohol abuse Paternal Grandfather Madelyn Luis Enrique Diabetes Mother's Brother Ulysses Bass SOCIAL HISTORY Social History Socioeconomic History Marital status: Single Tobacco Use Smoking status: Former Current packs/day: 0.00 Types: Cigarettes Quit date: 05/19/2015 Years since quittin.2 Smokeless tobacco: Never Vaping Use Vaping status: Never Used Substance and Sexual Activity Alcohol use: Not Currently Comment: Use to drink Drug use: Not Currently Types: Marijuana Comment: Use to smoke Sexual activity: Not Currently Partners: Female control/protection: Abstinence Social History Narrative Lives at home with daughter 9 yo (Mai) 3rd grade. . Her biological mom lives in [place]. No significant other right now. Has 2 cats at home. Social Drivers of Health Financial Resource Strain: Low Risk (05/01/2023) Overall Financial Resource Strain (CARDIA) Difficulty of Paying Living Expenses: Not hard at all Food Insecurity: No Food Insecurity (05/01/2023) Hunger Vital Sign Worried About Running Out of Food in the Last Year: Never true Ran Out of Food in the Last Year: Never true Transportation Needs: No Transportation Needs (05/01/2023) PRAPARE - Transportation Lack of Transportation (Medical): No Lack of Transportation (Non-Medical): No Physical Activity: Sufficiently Active (05/01/2023) Exercise Vital Sign Days of Exercise per Week: 5 days Minutes of Exercise per Session: 50 min Housing Stability: Low Risk (05/01/2023) Housing Stability Vital Sign Unable to Pay for Housing in the Last Year: No Number of Places Lived in the Last Year: 1 Unstable Housing in the Last Year: No SCREENINGS PHYSICAL EXAM ED Triage Vitals [08/04/24 0106] Temp Heart Rate Resp BP 37.4 C (99.4 F) 105 18 (!) 137/97 SpO2 Temp Source Heart Rate Source Patient Position 97 % Temporal Monitor -- BP Location FiO2 (%) -- -- Physical Exam Vitals and nursing note reviewed. Constitutional: General: He is not in acute distress. Appearance: Normal appearance. He is normal weight. He is not ill-appearing, toxic-appearing or diaphoretic. HENT: Head: Normocephalic and atraumatic. Right Ear: External ear normal. Left Ear: External ear normal. Nose: Nose normal. Mouth/Throat: Mouth: Mucous membranes are moist. Eyes: Extraocular Movements: Extraocular movements intact. Cardiovascular: Rate and Rhythm: Normal rate. Pulmonary: Effort: Pulmonary effort is normal. Abdominal: General: Abdomen is flat. Palpations: Abdomen is soft. Tenderness: There is no abdominal tenderness. Musculoskeletal: General: Normal range of motion. Cervical back: Normal range of motion and neck supple. Skin: General: Skin is warm and dry. Neurological: General: No focal deficit present. Mental Status: He is alert. Psychiatric: Comments: Anxious appearing DIAGNOSTIC RESULTS RADIOLOGY (Per Emergency Physician): Interpretation per the Radiologist below, if available at the time of this note: No orders to display LABS: Labs Reviewed CBC WITH AUTO DIFFERENTIAL - Abnormal Result Value Auto WBC 8.1 RBC 6.04 (*) Hemoglobin 17.1 Hematocrit 51.0 MCV 84.4 MCH 28.3 MCHC 33.5 RDW 14.6 Platelets 399 MPV 10.3 nRBC 0.0 Neutrophils Relative 49.5 Lymphocytes Relative 37.5 Monocytes Relative 10.2 Eosinophils Relative 0.4 Basophils Relative 2.2 (*) Immature Grans % 0.2 Neutrophils Absolute 4.0 Lymphocytes Absolute 3.0 Monocytes Absolute 0.8 Eosinophils Absolute 0.0 Basophils Absolute 0.2 Immature Grans Absolute 0.0 CK - Abnormal CK 355 (*) COMPREHENSIVE METABOLIC PANEL - Abnormal SODIUM 140 POTASSIUM 4.0 CHLORIDE 100 CARBON DIOXIDE 26 ANION GAP 14 (*) UREA NITROGEN 12 CREATININE 0.97 GLUCOSE 106 (*) CALCIUM 8.6 AST (SGOT) 237 (*) ALT 284 (*) ALKALINE PHOSPHATASE 79 ALBUMIN 4.2 BILIRUBIN, TOTAL 0.4 TOTAL PROTEIN 8.2 eGFR >90.0 ETHANOL - Abnormal ETHANOL IN SER/PLAS 274 (*) Narrative: FITTER ARMAMENT depression is seen >100 mg/dL. NOTE: This result is for medical treatment only. Analysis performed using non-forensic procedures. COMPLETE URINALYSIS - Abnormal Color, Urine Yellow Clarity, Urine Clear pH, Urine 7.0 Leukocytes, Urine Negative Nitrite, Urine Negative Protein, Urine 600 (*) Glucose, Urine Normal Bilirubin, Urine Negative Ketones, Urine Negative Urobilinogen, Urine Normal Blood, Urine 0.1 (*) RBC, Urine 0-2 WBC, Urine 0-2 Squamous Epithelial, Urine 0-2 Bacteria, Urine Negative Mucus, Urine Few Hyaline Casts, Urine Negative SPECIFIC GRAVITY OF URINE (NUMERIC) 1.025 SARS-COV-2 ANTIGEN - Normal SARS-CoV-2 Antigen Negative COMPLETE URINALYSIS WITH REFLEX TO CULTURE Narrative: The following orders were created for panel order Complete Urinalysis with reflex to Culture. Procedure Abnormality Status --------- ------ Complete Urinalysis[[id number]] Abnormal Final result Please view results for these tests on the individual orders. DRUGS OF ABUSE AMPHETAMINE SCREEN Negative BARBITURATES SCREEN Negative BENZODIAZEPINE SCREEN Negative COCAINE METAB. SCREEN Negative METHADONE SCREEN Negative OPIATES SCREEN Negative OXYCODONE SCREEN Negative PHENCYCLIDINE SCREEN Negative FENTANYL SCREEN, UR QUAL Negative Narrative: The expected value for all of the drugs listed above is Negative. The following drugs or drug groups have been screened for by Immunoassay at the following thresholds: Amphetamine class (1000 ng/mL) Barbiturates (200 ng/mL) Benzodiazepines (200 ng/mL) Cocaine (300 ng/mL) Methadone (300 ng/mL) Opiates (300 ng/mL) Oxycodone (100 ng/mL) PCP (25 ng/mL) Fentanyl (1.0 ng/ml) NOTE: These results are for medical treatment only. Analysis performed using non-forensic procedures. POSITIVE results are NOT confirmed by a more specific alternative method unless requested. If confirmation is needed, request confirmation under separate order. All other labs were within normal range or not returned as of this dictation. EMERGENCY DEPARTMENT COURSE and DIFFERENTIAL DIAGNOSIS/MDM: Vitals: Vitals: 08/04/24 0106 08/04/24 0125 08/04/24 0129 08/04/24 0317 BP: (!) 137/97 121/70 BP Location: Left arm Patient Position: Lying Pulse: 105 83 Resp: 18 18 Temp: 37.4 C (99.4 F) 36.4 C (97.6 F) TempSrc: Temporal Temporal SpO2: 97% 97% 94% Weight: 86.2 kg (190 lb) Height: 1.753 m (5' 9) 34 y.o. who presents to the emergency department for psychiatric evaluation. On presentation to the emergency department patient is afebrile hemodynamically stable. Alcohol elevated to 274. Mild elevation of transaminases likely secondary to alcohol use. Patient medically cleared for discharge to [facility] for further psychiatric evaluation. Diagnoses as of 08/04/24329 Depression, unspecified depression type ED Medications managed: Medications - No data to display PROCEDURES: Unless otherwise noted below, none Procedures FINAL IMPRESSION 1. Depression, unspecified depression type DISPOSITION Transfer To Another Facility 08/04/2024 03:30:23 AM PATIENT REFERRED TO: No follow-up provider specified. DISCHARGE MEDICATIONS: New Prescriptions No medications on file (Comment: Please note this report has been produced using speech recognition software and may contain errors related to that system including errors in grammar, punctuation, and spelling, as well as words and phrases that may be inappropriate. If there are any questions or concerns please feel free to contact the dictating provider for clarification.) Prosper Tellez DO (electronically signed) Emergency Medicine Provider Prosper Tellez DO Resident 08/04/24329 Cosigned by Madelyn Crain MD at 08/04/2024 6:10 AM EST Emergency Department Encounter [facility] EMERGENCY DEPT Patient: Neal Larios : 1990 Date of Evaluation: 08/04/2024 ED Supervising Physician: Madelyn Crain MD I personally evaluated Annamarie Larios and made/approved the management plan and take responsibility for the patient management. This will serve as my Supervisory note and shared attestation. I did perform a substantive portion of the visit including all aspects of the Medical Decision Making. I wore appropriate PPE for the entirety of this encounter. In brief, Neal Larios is a 34 y.o. that presents to the emergency department for depression. Patient sent from [facility] for medical clearance. Patient presented there with his mother who has been worried about him. He states he had some social issues ongoing with his ex partner. Denies any abuse. Denies hallucinations alcohol drug use homicidal thoughts. Apparently at [facility] he endorsed SI but denies that here. Denies prior attempts. States he is not on any psychiatric medications but he was given Ativan and hydroxyzine reportedly at [facility]. He lives at home with his 10-year-old daughter he states. Focused exam: Vitals reviewed afebrile nontoxic head atraumatic neck supple heart sounds regular no respiratory distress moving all extremities equally appears to be depressed with flat affect calm cooperative Brief ED course/MDM: 34-year-old male presents for depression and psych eval. Differential depression, anxiety, suicidal thoughts. Plan for medical clearance labs and pink slipped. Will have psych evaluate once medically cleared. Medical history impacting this was includes anxiety. Social history impacting this visit includes no drug abuse reported Diagnostics interpreted by me: none I personally discussed the patient's management with other clinicians: none All diagnostic, treatment, and disposition decisions were made by myself in conjunction with the Resident. I also supervised díaz portions of any procedures performed by the Resident. For all further details of the patient's emergency department visit, please see their documentation. (Comment: Please note this report has been produced using speech recognition software and may contain errors related to that system including errors in grammar, punctuation, and spelling, as well as words and phrases that may be inappropriate. If there are any questions or concerns please feel free to contact the dictating provider for clarification.) Madelyn Crain MD [facility] Madelyn Crain MD 08/04/24 0141 Patient was sent from [facility] for medical clearance. Patient is depressed. Patient denies SI to RN. Patient told [facility] that he is SI. documented in this encounter [facility] 08-04-2024 Emergency department Note A/ox3. Independent to stretcher. Discharged to [facility]. Belongings set with ems transport. [facility] 08-04-2024 Emergency department Note Luzma Kapoor at bedside obtaining vitals. [facility] 08-04-2024 Emergency department Note CHRISTO Fox giving patient warm blanket for comfort. [facility] 08-04-2024 Emergency department Note EKG at patient bedside. [facility] 08-04-[address] Tellez at patient bedside. [facility] 08-04-2024 Emergency department Note Pt changed into 2 gowns and wanded by officer. Pt has 1 belonging bag. with pt in 47. [facility] 08-04-2024 Emergency department Triage note Patient was sent from [facility] for medical clearance. Patient is depressed. Patient denies SI to RN. Patient told [facility] that he is SI. [facility] 02-05-2025 Note Patient was sent [facility] for medical [facility]. Patient is depressed. Patient denies SI to RN. Patient told [facility] that he is SI. [facility] 08-04-2024 Physician Emergency department Note EMERGENCY DEPARTMENT ENCOUNTER Pt Name: Neal Larios Birthdate 1990 Date of evaluation: 08/04/2024 ED Provider: Prosper Tellez DO CHIEF COMPLAINT Chief Complaint Patient presents with Suicidal Patient was sent from [facility] for medical clearance. Patient is depressed. Patient denies SI to RN. Patient told [facility] that he is SI. HISTORY OF PRESENT ILLNESS (Location/Symptom, Timing/Onset, Context/Setting, Quality, Duration, Modifying Factors, Severity) Note limiting factors. I wore appropriate PPE for the entirety of this encounter. HPI Neal Larios is a 34 y.o. who presents to the emergency department for psychiatric evaluation. Patient describes that he has manic cycling over the last week. When questioned about this he describes feeling depressed and wanting to get help. He denies any SI or HI here however he did state to personnel at [facility] he does have SI. No drugs or alcohol. No visual or auditory hallucinations. Nursing Notes were reviewed. Limitations to history: None Outside historians: None REVIEW OF SYSTEMS Review of Systems Psychiatric/Behavioral: Negative for hallucinations, sleep disturbance and suicidal ideas. The patient is not hyperactive. Pertinent positives and negatives as per HPI. PAST MEDICAL HISTORY Past Medical History: Diagnosis Date 2018 novel coronavirus disease (COVID-19) 04/2021 ADHD (attention deficit hyperactivity disorder) Allergic Anxiety Since COVID 04/2021 Eczema IBS (irritable bowel syndrome) [place] exposure MRSA (methicillin resistant staph aureus) culture positive Substance abuse ([facility]) ([facility]) SURGICAL HISTORY Past Surgical History: Procedure Laterality Date APPENDECTOMY RETINAL DETACHMENT SURGERY SPLENECTOMY, TOTAL TONSILLECTOMY TONSILLECTOMY AND ADENOIDECTOMY (HISTORICAL) TYMPANOSTOMY TUBE PLACEMENT CURRENT MEDICATIONS Previous Medications FAMOTIDINE (PEPCID) 40 MG TABLET take 1 tablet by mouth every morning MUPIROCIN (BACTROBAN) 2 % OINTMENT apply to affected area twice a day if needed ALLERGIES Cephalexin, Cephalosporins, Citronella oil, and Penicillins FAMILY HISTORY Family History Problem Relation Name Age of Onset No Known Problems Mother No Known Problems Father Arthritis Maternal Grandmother Cayla Bass Alcohol abuse Paternal Grandfather Madelyn Larios Diabetes Mother's Brother Ulysses Bass SOCIAL HISTORY Social History Socioeconomic History Marital status: Single Tobacco Use Smoking status: Former Current packs/day: 0.00 Types: Cigarettes Quit date: 05/19/2015 Years since quittin.2 Smokeless tobacco: Never Vaping Use Vaping status: Never Used Substance and Sexual Activity Alcohol use: Not Currently Comment: Use to drink Drug use: Not Currently Types: Marijuana Comment: Use to smoke Sexual activity: Not Currently Partners: Female control/protection: Abstinence Social History Narrative Lives at home with daughter 9 yo ([employer]) 3rd grade. . Her biological mom lives in [place]. No significant other right now. Has 2 cats at home. Social Drivers of Health Financial Resource Strain: Low Risk (05/01/2023) Overall Financial Resource Strain (CARDIA) Difficulty of Paying Living Expenses: Not hard at all Food Insecurity: No Food Insecurity (05/01/2023) Hunger Vital Sign Worried About Running Out of Food in the Last Year: Never true Ran Out of Food in the Last Year: Never true Transportation Needs: No Transportation Needs (05/01/2023) PRAPARE - Transportation Lack of Transportation (Medical): No Lack of Transportation (Non-Medical): No Physical Activity: Sufficiently Active (05/01/2023) Exercise Vital Sign Days of Exercise per Week: 5 days Minutes of Exercise per Session: 50 min Housing Stability: Low Risk (05/01/2023) Housing Stability Vital Sign Unable to Pay for Housing in the Last Year: No Number of Places Lived in the Last Year: 1 Unstable Housing in the Last Year: No SCREENINGS PHYSICAL EXAM ED Triage Vitals [08/04/24 0106] Temp Heart Rate Resp BP 37.4 C (99.4 F) 105 18 (!) 137/97 SpO2 Temp Source Heart Rate Source Patient Position 97 % Temporal Monitor -- BP Location FiO2 (%) -- -- Physical Exam Vitals and nursing note reviewed. Constitutional: General: He is not in acute distress. Appearance: Normal appearance. He is normal weight. He is not ill-appearing, toxic-appearing or diaphoretic. HENT: Head: Normocephalic and atraumatic. Right Ear: External ear normal. Left Ear: External ear normal. Nose: Nose normal. Mouth/Throat: Mouth: Mucous membranes are moist. Eyes: Extraocular Movements: Extraocular movements intact. Cardiovascular: Rate and Rhythm: Normal rate. Pulmonary: Effort: Pulmonary effort is normal. Abdominal: General: Abdomen is flat. Palpations: Abdomen is soft. Tenderness: There is no abdominal tenderness. Musculoskeletal: General: Normal range of motion. Cervical back: Normal range of motion and neck supple. Skin: General: Skin is warm and dry. Neurological: General: No focal deficit present. Mental Status: He is alert. Psychiatric: Comments: Anxious appearing DIAGNOSTIC RESULTS RADIOLOGY (Per Emergency Physician): Interpretation per the Radiologist below, if available at the time of this note: No orders to display LABS: Labs Reviewed CBC WITH AUTO DIFFERENTIAL - Abnormal Result Value Auto WBC 8.1 RBC 6.04 (*) Hemoglobin 17.1 Hematocrit 51.0 MCV 84.4 MCH 28.3 MCHC 33.5 RDW 14.6 Platelets 399 MPV 10.3 nRBC 0.0 Neutrophils Relative 49.5 Lymphocytes Relative 37.5 Monocytes Relative 10.2 Eosinophils Relative 0.4 Basophils Relative 2.2 (*) Immature Grans % 0.2 Neutrophils Absolute 4.0 Lymphocytes Absolute 3.0 Monocytes Absolute 0.8 Eosinophils Absolute 0.0 Basophils Absolute 0.2 Immature Grans Absolute 0.0 CK - Abnormal CK 355 (*) COMPREHENSIVE METABOLIC PANEL - Abnormal SODIUM 140 POTASSIUM 4.0 CHLORIDE 100 CARBON DIOXIDE 26 ANION GAP 14 (*) UREA NITROGEN 12 CREATININE 0.97 GLUCOSE 106 (*) CALCIUM 8.6 AST (SGOT) 237 (*) ALT 284 (*) ALKALINE PHOSPHATASE 79 ALBUMIN 4.2 BILIRUBIN, TOTAL 0.4 TOTAL PROTEIN 8.2 eGFR >90.0 ETHANOL - Abnormal ETHANOL IN SER/PLAS 274 (*) Narrative: FITTER ARMAMENT depression is seen >100 mg/dL. NOTE: This result is for medical treatment only. Analysis performed using non-forensic procedures. COMPLETE URINALYSIS - Abnormal Color, Urine Yellow Clarity, Urine Clear pH, Urine 7.0 Leukocytes, Urine Negative Nitrite, Urine Negative Protein, Urine 600 (*) Glucose, Urine Normal Bilirubin, Urine Negative Ketones, Urine Negative Urobilinogen, Urine Normal Blood, Urine 0.1 (*) RBC, Urine 0-2 WBC, Urine 0-2 Squamous Epithelial, Urine 0-2 Bacteria, Urine Negative Mucus, Urine Few Hyaline Casts, Urine Negative SPECIFIC GRAVITY OF URINE (NUMERIC) 1.025 SARS-COV-2 ANTIGEN - Normal SARS-CoV-2 Antigen Negative COMPLETE URINALYSIS WITH REFLEX TO CULTURE Narrative: The following orders were created for panel order Complete Urinalysis with reflex to Culture. Procedure Abnormality Status --------- ------ Complete Urinalysis[[id number]] Abnormal Final result Please view results for these tests on the individual orders. DRUGS OF ABUSE AMPHETAMINE SCREEN Negative BARBITURATES SCREEN Negative BENZODIAZEPINE SCREEN Negative COCAINE METAB. SCREEN Negative METHADONE SCREEN Negative OPIATES SCREEN Negative OXYCODONE SCREEN Negative PHENCYCLIDINE SCREEN Negative FENTANYL SCREEN, UR QUAL Negative Narrative: The expected value for all of the drugs listed above is Negative. The following drugs or drug groups have been screened for by Immunoassay at the following thresholds: Amphetamine class (1000 ng/mL) Barbiturates (200 ng/mL) Benzodiazepines (200 ng/mL) Cocaine (300 ng/mL) Methadone (300 ng/mL) Opiates (300 ng/mL) Oxycodone (100 ng/mL) PCP (25 ng/mL) Fentanyl (1.0 ng/ml) NOTE: These results are for medical treatment only. Analysis performed using non-forensic procedures. POSITIVE results are NOT confirmed by a more specific alternative method unless requested. If confirmation is needed, request confirmation under separate order. All other labs were within normal range or not returned as of this dictation. EMERGENCY DEPARTMENT COURSE and DIFFERENTIAL DIAGNOSIS/MDM: Vitals: Vitals: 08/04/24 0106 08/04/24 0125 08/04/24 0129 08/04/24 0317 BP: (!) 137/97 121/70 BP Location: Left arm Patient Position: Lying Pulse: 105 83 Resp: 18 18 Temp: 37.4 C (99.4 F) 36.4 C (97.6 F) TempSrc: Temporal Temporal SpO2: 97% 97% 94% Weight: 86.2 kg (190 lb) Height: 1.753 m (5' 9) 34 y.o. who presents to the emergency department for psychiatric evaluation. On presentation to the emergency department patient is afebrile hemodynamically stable. Alcohol elevated to 274. Mild elevation of transaminases likely secondary to alcohol use. Patient medically cleared for discharge to [facility] for further psychiatric evaluation. Diagnoses as of 08/04/24329 Depression, unspecified depression type ED Medications managed: Medications - No data to display PROCEDURES: Unless otherwise noted below, none Procedures FINAL IMPRESSION 1. Depression, unspecified depression type DISPOSITION Transfer To Another Facility 08/04/2024 03:30:23 AM PATIENT REFERRED TO: No follow-up provider specified. DISCHARGE MEDICATIONS: New Prescriptions No medications on file (Comment: Please note this report has been produced using speech recognition software and may contain errors related to that system including errors in grammar, punctuation, and spelling, as well as words and phrases that may be inappropriate. If there are any questions or concerns please feel free to contact the dictating provider for clarification.) Prosper Tellez DO (electronically signed) Emergency Medicine Provider Prosper Tellez DO Resident 08/04/24329 Cosigned by Madelyn Crain MD at 08/04/2024 6:10 AM EST [facility] 08-04-2024 Physician Emergency department Note Emergency Department Encounter [facility] EMERGENCY DEPT Patient: Neal Larios : 1990 Date of Evaluation: 08/04/2024 ED Supervising Physician: Madelyn Crain MD I personally evaluated Annamarie Larios and made/approved the management plan and take responsibility for the patient management. This will serve as my Supervisory note and shared attestation. I did perform a substantive portion of the visit including all aspects of the Medical Decision Making. I wore appropriate PPE for the entirety of this encounter. In brief, Neal Larios is a 34 y.o. that presents to the emergency department for depression. Patient sent from [facility] for medical clearance. Patient presented there with his mother who has been worried about him. He states he had some social issues ongoing with his ex partner. Denies any abuse. Denies hallucinations alcohol drug use homicidal thoughts. Apparently [facility] he endorsed SI but denies that here. Denies prior attempts. States he is not on any psychiatric medications but he was given Ativan and hydroxyzine reportedly at [facility]. He lives at home with his 10-year-old daughter he states. Focused exam: Vitals reviewed afebrile nontoxic head atraumatic neck supple heart sounds regular no respiratory distress moving all extremities equally appears to be depressed with flat affect calm cooperative Brief ED course/MDM: 34-year-old male presents for depression and psych eval. Differential depression, anxiety, suicidal thoughts. Plan for medical clearance labs and pink slipped. Will have psych evaluate once medically cleared. Medical history impacting this was includes anxiety. Social history impacting this visit includes no drug abuse reported Diagnostics interpreted by me: none I personally discussed the patient's management with other clinicians: none All diagnostic, treatment, and disposition decisions were made by myself in conjunction with the Resident. I also supervised díaz portions of any procedures performed by the Resident. For all further details of the patient's emergency department visit, please see their documentation. (Comment: Please note this report has been produced using speech recognition software and may contain errors related to that system including errors in grammar, punctuation, and spelling, as well as words and phrases that may be inappropriate. If there are any questions or concerns please feel free to contact the dictating provider for clarification.) Madelyn Crain MD [facility] Madelyn Crain MD 08/04/[address] Phone: 08-13-2023 Note HNO ID: [id number] Author: NATY NAGY APRN.LITHOGRAPHIC ETCHER Service: ? Author Type: Nurse Practitioner Type: Progress Notes Filed: 08/14/2023 09:40 Note Text: This note was created using NoteWriter. Subjective Annamarie Larios is a 33 year old male. 33 year old male with no PMH presents with acute onset fever that started yesterday. Pertinent positives include fever tmax 101.7, body aches, muscle cramps, and dry cough. Pertinent negatives include GI upset, decreased appetite, rhinorrhea, dizziness, dyspnea, ear pain and eye irritation. Daughter tested positive for strep throat last week. The history is provided by the patient. Fever This is a new problem. The current episode started 12 to 24 hours ago. The problem occurs constantly. The problem has not changed since onset.The maximum temperature noted was 101 to 101.9 F. Associated symptoms include muscle aches and cough. Pertinent negatives include no chest pain, no diarrhea, no vomiting, no congestion, no headaches and no sore throat. Treatments tried: aspirin. The treatment provided no relief. PAST MEDICAL HISTORY Diagnosis Date ADHD (attention deficit hyperactivity disorder) Bipolar 1 disorder ([facility]) Eczema Hx MRSA infection IBS (irritable bowel syndrome) Substance abuse ([facility]) No past surgical history on file. ALLERGIES Cephlasporins [Cephalosporins] and Penicillins MEDICATIONS famotidine (PEPCID) 40 mg tablet Take 40 mg by mouth. azithromycin (ZITHROMAX) 500 mg tablet Take 1 tablet by mouth once daily for 5 days. EPINEPHrine (EPIPEN 2-KAMILA) 0.3 mg/0.3 mL auto-injector Inject 0.3 mL intramuscularly as needed. (Patient not taking: Reported on 05/15/2022) No family history on file. Social History Tobacco Use Smoking status: Every Day Smokeless tobacco: Never Review of Systems Constitutional: Positive for chills and fever. Negative for activity change, appetite change and fatigue. HENT: Negative for congestion, ear discharge, ear pain, rhinorrhea, sinus pressure, sinus pain and sore throat. Eyes: Negative for pain, discharge, redness and itching. Respiratory: Positive for cough. Negative for chest tightness and shortness of breath. Cardiovascular: Negative for chest pain and palpitations. Gastrointestinal: Negative for abdominal pain, diarrhea, nausea and vomiting. Musculoskeletal: Positive for arthralgias and myalgias. Skin: Negative for color change and rash. Neurological: Negative for dizziness, light-headedness and headaches. Objective BP 142/86 Pulse (!) 122 Temp (!) 38.6 ?C (101.5 ?F) Resp 18 Wt 89.8 kg (198 lb) SpO2 97% Physical Exam Vitals reviewed. Constitutional: General: He is awake. He is not in acute distress. Appearance: Normal appearance. He is normal weight. He is not ill-appearing, toxic-appearing or diaphoretic. HENT: Head: Normocephalic. Right Ear: Hearing, tympanic membrane, ear canal and external ear normal. No decreased hearing noted. No laceration, drainage, swelling or tenderness. No middle ear effusion. There is no impacted cerumen. No foreign body. No mastoid tenderness. No PE tube. No hemotympanum. Tympanic membrane is not injected, scarred, perforated, erythematous, retracted or bulging. Tympanic membrane has normal mobility. Left Ear: Hearing, tympanic membrane, ear canal and external ear normal. No decreased hearing noted. No laceration, drainage, swelling or tenderness. No middle ear effusion. There is no impacted cerumen. No foreign body. No mastoid tenderness. No PE tube. No hemotympanum. Tympanic membrane is not injected, scarred, perforated, erythematous, retracted or bulging. Tympanic membrane has normal mobility. Nose: Nose normal. No nasal deformity, septal deviation, signs of injury, laceration, nasal tenderness, mucosal edema, congestion or rhinorrhea. Right Nostril: No foreign body, epistaxis, septal hematoma or occlusion. Left Nostril: No foreign body, epistaxis, septal hematoma or occlusion. Right Turbinates: Not enlarged, swollen or pale. Left Turbinates: Not enlarged, swollen or pale. Right Sinus: No maxillary sinus tenderness or frontal sinus tenderness. Left Sinus: No maxillary sinus tenderness or frontal sinus tenderness. Mouth/Throat: Lips: Gifford. No lesions. Mouth: Mucous membranes are moist. No oral lesions. Tongue: No lesions. Palate: No lesions. Pharynx: Oropharynx is clear. Uvula midline. Posterior oropharyngeal erythema present. No pharyngeal swelling, oropharyngeal exudate or uvula swelling. Tonsils: No tonsillar exudate or tonsillar abscesses. 2+ on the right. 2+ on the left. Eyes: General: Lids are normal. No allergic shiner or scleral icterus. Right eye: No foreign body, discharge or hordeolum. Left eye: No foreign body, discharge or hordeolum. Conjunctiva/sclera: Conjunctivae normal. Right eye: Right conjunctiva is not injected. No chemosis, exudate or hemorrhage. Left eye: Left conjunctiva i (more content not included)... [facility] 08-13-2023 History of Presen t illness Narrative This note was created using [employer]. Subjective Annamarie Larios is a 33 year old male. 33 year old male with no PMH presents with acute onset fever that started yesterday. Pertinent positives include fever tmax 101.7, body aches, muscle cramps, and dry cough. Pertinent negatives include GI upset, decreased appetite, rhinorrhea, dizziness, dyspnea, ear pain and eye irritation. Daughter tested positive for strep throat last week. The history is provided by the patient. Fever This is a new problem. The current episode started 12 to 24 hours ago. The problem occurs constantly. The problem has not changed since onset.The maximum temperature noted was 101 to 101.9 F. Associated symptoms include muscle aches and cough. Pertinent negatives include no chest pain, no diarrhea, no vomiting, no congestion, no headaches and no sore throat. Treatments tried: aspirin. The treatment provided no relief. PAST MEDICAL HISTORY Diagnosis Date ADHD (attention deficit hyperactivity disorder) Bipolar 1 disorder ([facility]) Eczema Hx MRSA infection IBS (irritable bowel syndrome) Substance abuse ([facility]) No past surgical history on file. ALLERGIES Cephlasporins [Cephalosporins] and Penicillins MEDICATIONS famotidine (PEPCID) 40 mg tablet Take 40 mg by mouth. azithromycin (ZITHROMAX) 500 mg tablet Take 1 tablet by mouth once daily for 5 days. EPINEPHrine (EPIPEN 2-KAMILA) 0.3 mg/0.3 mL auto-injector Inject 0.3 mL intramuscularly as needed. (Patient not taking: Reported on 05/15/2022) No family history on file. Social History Tobacco Use Smoking status: Every Day Smokeless tobacco: Never Review of Systems Constitutional: Positive for chills and fever. Negative for activity change, appetite change and fatigue. HENT: Negative for congestion, ear discharge, ear pain, rhinorrhea, sinus pressure, sinus pain and sore throat. Eyes: Negative for pain, discharge, redness and itching. Respiratory: Positive for cough. Negative for chest tightness and shortness of breath. Cardiovascular: Negative for chest pain and palpitations. Gastrointestinal: Negative for abdominal pain, diarrhea, nausea and vomiting. Musculoskeletal: Positive for arthralgias and myalgias. Skin: Negative for color change and rash. Neurological: Negative for dizziness, light-headedness and headaches. Objective BP 142/86 Pulse (!) 122 Temp (!) 38.6 C (101.5 F) Resp 18 Wt 89.8 kg (198 lb) SpO2 97% Physical Exam Vitals reviewed. Constitutional: General: He is awake. He is not in acute distress. Appearance: Normal appearance. He is normal weight. He is not ill-appearing, toxic-appearing or diaphoretic. HENT: Head: Normocephalic. Right Ear: Hearing, tympanic membrane, ear canal and external ear normal. No decreased hearing noted. No laceration, drainage, swelling or tenderness. No middle ear effusion. There is no impacted cerumen. No foreign body. No mastoid tenderness. No PE tube. No hemotympanum. Tympanic membrane is not injected, scarred, perforated, erythematous, retracted or bulging. Tympanic membrane has normal mobility. Left Ear: Hearing, tympanic membrane, ear canal and external ear normal. No decreased hearing noted. No laceration, drainage, swelling or tenderness. No middle ear effusion. There is no impacted cerumen. No foreign body. No mastoid tenderness. No PE tube. No hemotympanum. Tympanic membrane is not injected, scarred, perforated, erythematous, retracted or bulging. Tympanic membrane has normal mobility. Nose: Nose normal. No nasal deformity, septal deviation, signs of injury, laceration, nasal tenderness, mucosal edema, congestion or rhinorrhea. Right Nostril: No foreign body, epistaxis, septal hematoma or occlusion. Left Nostril: No foreign body, epistaxis, septal hematoma or occlusion. Right Turbinates: Not enlarged, swollen or pale. Left Turbinates: Not enlarged, swollen or pale. Right Sinus: No maxillary sinus tenderness or frontal sinus tenderness. Left Sinus: No maxillary sinus tenderness or frontal sinus tenderness. Mouth/Throat: Lips: Gifford. No lesions. Mouth: Mucous membranes are moist. No oral lesions. Tongue: No lesions. Palate: No lesions. Pharynx: Oropharynx is clear. Uvula midline. Posterior oropharyngeal erythema present. No pharyngeal swelling, oropharyngeal exudate or uvula swelling. Tonsils: No tonsillar exudate or tonsillar abscesses. 2+ on the right. 2+ on the left. Eyes: General: Lids are normal. No allergic shiner or scleral icterus. Right eye: No foreign body, discharge or hordeolum. Left eye: No foreign body, discharge or hordeolum. Conjunctiva/sclera: Conjunctivae normal. Right eye: Right conjunctiva is not injected. No chemosis, exudate or hemorrhage. Left eye: Left conjunctiva is not injected. No chemosis, exudate or hemorrhage. Pupils: Pupils are equal, round, and reactive to light. Cardiovascular: Rate and Rhythm: Normal rate and regular rhythm. Heart sounds: Normal heart sounds, S1 normal and S2 normal. Heart sounds not distant. No murmur heard. No friction rub. No gallop. Pulmonary: Effort: Pulmonary effort is normal. No tachypnea, bradypnea, accessory muscle usage, prolonged expiration or respiratory distress. Breath sounds: Normal breath sounds. No stridor or decreased air movement. No decreased breath sounds, wheezing, rhonchi or rales. Chest: Chest wall: No tenderness. Musculoskeletal: General: Normal range of motion. Cervical back: Normal range of motion. No tenderness. Lymphadenopathy: Head: Right side of head: Submental adenopathy present. No submandibular, tonsillar, preauricular, posterior auricular or occipital adenopathy. Left side of head: Submental adenopathy present. No submandibular, tonsillar, preauricular, posterior auricular or occipital adenopathy. Cervical: No cervical adenopathy. Skin: General: Skin is warm and dry. Capillary Refill: Capillary refill takes less than 2 seconds. Neurological: General: No focal deficit present. Mental Status: He is alert and oriented to person, place, and time. Mental status is at baseline. Motor: No weakness. Coordination: Coordination normal. Gait: Gait normal. Psychiatric: Mood and Affect: Mood normal. Behavior: Behavior normal. Behavior is cooperative. Thought Content: Thought content normal. Judgment: Judgment normal. Assessment and Plan ASSESSMENT/PLAN: 1. Strep throat - ICD9: 034.0, ICD10: J02.0 - Acute onset fever, chills and body aches that started yesterday. - Known contact with strep - LCTA, TM WDL bilat, tonsils 2+ no exudate, submental lymphadenopathy - Pulse 122 in the office today. S1 S2 ausculated, regular rhythm, no murmur or thrill. Patient asymptomatic. BP 142/86 Temp 101.5. Patient had caffeine [employer] and I never have that stuff - suspect strep - Group A strep molecular testing positive - antibiotic as written and Zithromax for PCN allergy. - Discussed supportive care treatment with fluids, rest and analgesia. - The patient may also use OTC cough and cold meds as needed. - Contagious dz precautions discussed- including considered contagious until on antibiotics for 24 hours Karon Blum TEACHING PROVIDER (Physician/PA/NURSE FIRST AID) NOTE OF PERSONAL INVOLVEMENT IN CARE: I have personally seen and examined the patient and performed the medical decision-making components. I have reviewed the Advanced Practice Registered Nurse (NURSE FIRST AID) Student's documentation and verified the findings in the note as written. Any additions or changes are noted in bold/italics. Signature: Naty Nagy Date: 08/14/2023 Time: 9:40 AM documented in this encounter [facility] 07-25-2023 Telephone encounter Note Rx sent. Follow up as scheduled. [facility] 07-25-2023 Miscellaneous Notes Rx sent. Follow up as scheduled. Prescription Request: Last medication check: 10/25/22 Last physical exam: 05/01/23 Next scheduled appointment: 05/03/24 Last date of refill on this medication 07/01/23 documented in this encounter [facility] 07-25-2023 Telephone encounter Note Prescription Request: Last medication check: 10/25/22 Last physical exam: 05/01/23 Next scheduled appointment: 05/03/24 Last date of refill on this medication 07/01/23 [facility]01[facility]2023 [facility] Notes Revie Prescription Request: Last medication check: none Last physical exam: 05/01/23 Next scheduled appointment: 05/03/24 Last date of refill on this medication 05/26/23 30 day no refill documented in this encounter [facility] 07-01-2023 Telephone encounter Note Prescription Request: Last medication check: none Last physical exam: 05/01/23 Next scheduled appointment: 05/03/24 Last date of refill on this medication 05/26/23 30 day no refill [facility] 05-26-2023 Miscellaneous Notes Prescription Request: Last medication check: none Last physical exam: 05/01/23 Next scheduled appointment: 05/23/24 Last date of refill on this medication 04/25/23 30 day no refill documented in this encounter [facility] 05-26-2023 Telephone encounter Note [facility] 05-26-2023 Telephone encounter Note Prescription Request: Last medication check: none Last physical exam: 05/01/23 Next scheduled appointment: 05/23/24 Last date of refill on this medication 04/25/23 30 day no refill [facility] 05-20-2023 Telephone encounter Note Noted [facility] 05-20-2023 Miscellaneous Notes Noted Notified, scheduled, orders pended. ----- Message from KEYONA Fierro CNP sent at 05/02/2023 10:03 AM EDT ----- CMP-normal kidney and liver functioning HIV negative Hepatitis C negative Lipid panel-total cholesterol elevated at 213, HDL good at 43, triglycerides are good at 104, LDL cholesterol is elevated at 148, recommend strict low-fat low-cholesterol diet and rechecking in 4 weeks, at that time if still elevated would recommend starting cholesterol medication documented in this encounter [facility] 05-20-2023 History and physical note Images from the original note were not included. [facility] [address] [place] [id number] Dept: [phone] Dept Patient Name: Annamarie Larios Date: 05/20/23 Update History & Physical I examined the patient and there were no significant changes from the previous History and Physical. I verify that the patient's condition and planned treatment has not changed. I also confirm the necessity for the procedure still present. Planned Procedure: Excision forehead soft tissue mass with layered closure. Patient seen and marked today. Risks/benefits/possible complications were reviewed with the patient as per the preoperative office note to include but not limited to bleeding, infection, wound healing issues, seroma/hematoma. Patient understands and wants to proceed with the procedure. F COMPLAINT: Soft tissue mass of the forehead History Obtained From: patient, EMR HISTORY OF PRESENT ILLNESS: The patient is a 32 y.o. male who presents with soft tissue mass of the forehead. The patient states that they first noticed the lesion 4 years ago. It has grown in size since they first noticed the lesion. The lesion has not changed in color and has not had discharge or bleeding. The pt has not the lesion biopsied previously. The patient has not had the lesion removed previously. The patient states the lesion is not painful, but is just aesthetically bothersome. The pt denies any associated symptoms. Past Medical History: Medical History Past Medical History: Diagnosis Date ADHD (attention deficit hyperactivity disorder) Eczema IBS (irritable bowel syndrome) [place] exposure MRSA (methicillin resistant staph aureus) culture positive Substance abuse ([facility]) ([facility]) Past Surgical History: Surgical History Past Surgical History: Procedure Laterality Date APPENDECTOMY RETINAL DETACHMENT SURGERY SPLENECTOMY, TOTAL TONSILLECTOMY AND ADENOIDECTOMY (HISTORICAL) TYMPANOSTOMY TUBE PLACEMENT Current Medications: Current Outpatient Medications Medication Instructions famotidine (PEPCID) 40 mg, Oral, Every morning mupirocin (Bactroban) 2 % ointment apply to affected area twice a day if needed Allergies: Cephalexin, Cephalosporins, Citronella oil, and Penicillins Social History: Social History Socioeconomic History Marital status: Single Spouse name: Not on file Number of children: Not on file Years of education: Not on file Highest education level: Not on file Occupational History Not on file Tobacco Use Smoking status: Former Types: Cigarettes Quit date: 05/19/2015 Years since quittin.9 Smokeless tobacco: Never Vaping Use Vaping Use: Never used Substance and Sexual Activity Alcohol use: No Alcohol/week: 0.0 standard drinks of alcohol Drug use: No Sexual activity: Not on file Other Topics Concern Not on file Social History Narrative Not on file Social Determinants of Health Financial Resource Strain: Not on file Food Insecurity: Not on file Transportation Needs: Not on file Physical Activity: Not on file Stress: Not on file Social Connections: Not on file Intimate Partner Violence: Not on file Housing Stability: Not on file Family History: Family History Family History Problem Relation Name Age of Onset No Known Problems Mother No Known Problems Father REVIEW OF SYSTEMS: Review of Systems Constitutional: Negative for fatigue. HENT: Negative for ear discharge and rhinorrhea. Eyes: Negative for discharge and redness. Respiratory: Negative for chest tightness and shortness of breath. Cardiovascular: Negative for chest pain. Gastrointestinal: Negative for abdominal pain. Musculoskeletal: Negative for gait problem. Skin: Soft tissue mass of the forehead Neurological: Negative for weakness. Psychiatric/Behavioral: Negative for behavioral problems. PHYSICAL EXAM: VITALS: Ht 5' 9 (1.753 m) Wt 187 lb (84.8 kg) BMI 27.62 kg/m CONSTITUTIONAL: awake, alert, cooperative, no apparent distress, and appears stated age EYES: PERRLA, EOMI, no signs of occular infection LUNGS: No increased work of breathing, good air exchange, clear to auscultation bilaterally, no crackles or wheezing CARDIOVASCULAR: Normal apical impulse, regular rate and rhythm, normal S1 and S2, no S3 or S4, and no murmur noted ABDOMEN: Soft, nontender, nondistended. EXTREMITIES: no signs of clubbing or cyanosis. MUSCULOSKELETAL: negative for flaccid muscle tone or spastic movements. NEURO: Cranial nerves II-XII grossly intact. No signs of agitated mood. SKIN: 1.5 cm x 1.5 cm soft tissue mass of the right forehead, normal skin in color, regular round border, raised, no signs of bleeding, drainage or infection. Non tender to palpation. No central punctum. No overlying erythema, or signs and symptoms suggestive of infection or inflammation. DATA: Labs: CBC: Lab Results Component Value Date WBC 12.4 (H) 05/02/2022 RBC 5.37 05/02/2022 HGB 14.6 05/02/2022 HCT 46.0 05/02/2022 MCV 85.6 05/02/2022 MCH 27.1 05/02/2022 MCHC 31.7 (L) 05/02/2022 RDW 15.7 (H) 05/02/2022 PLT 463 (H) 05/02/2022 MPV 9.0 05/02/2022 BMP: Lab Results Component Value Date NA 141 05/02/2022 K 5.0 05/02/2022 CL 104 05/02/2022 CO2 29 05/02/2022 BUN 23 (H) 05/02/2022 CREATININE 1.21 05/02/2022 CALCIUM 9.6 05/02/2022 GLUCOSE 96 05/02/2022 Radiology Review: No radiology needed at this time Pathology Review: No Pathology reviewed IMPRESSION/RECOMMENDATIONS: Diagnosis 1-) soft tissue mass of the right forehead -We will plan to proceed with excision soft tissue mass of the right forehead under local anesthesia as an outpatient at [facility]. The orders are in. -The risks, benefits and options were discussed with the pt. The risks included but not limited to pain, bleeding, infection, heavy scarring, damage to surrounding structures, fluid collections, asymmetry, and need for further procedures. All of His questions were answered to their satisfaction and He agrees to proceed with the procedure. [employer] Phone: 05-20-2023 History and physical note Images from the original note were not included. [facility] [employer] [facility] [address] [place] [address] Dept: [phone] Dept Patient Name: Annamarie Larios Date: 05/20/23 Update History & Physical I examined the patient and there were no significant changes from the previous History and Physical. I verify that the patient's condition and planned treatment has not changed. I also confirm the necessity for the procedure still present. Planned Procedure: Excision forehead soft tissue mass with layered closure. Patient seen and marked today. Risks/benefits/possible complications were reviewed with the patient as per the preoperative office note to include but not limited to bleeding, infection, wound healing issues, seroma/hematoma. Patient understands and wants to proceed with the procedure. F COMPLAINT: Soft tissue mass of the forehead History Obtained From: patient, EMR HISTORY OF PRESENT ILLNESS: The patient is a 32 y.o. male who presents with soft tissue mass of the forehead. The patient states that they first noticed the lesion 4 years ago. It has grown in size since they first noticed the lesion. The lesion has not changed in color and has not had discharge or bleeding. The pt has not the lesion biopsied previously. The patient has not had the lesion removed previously. The patient states the lesion is not painful, but is just aesthetically bothersome. The pt denies any associated symptoms. Past Medical History: Medical History Past Medical History: Diagnosis Date ADHD (attention deficit hyperactivity disorder) Eczema IBS (irritable bowel syndrome) [place] exposure MRSA (methicillin resistant staph aureus) culture positive Substance abuse ([facility]) ([facility]) Past Surgical History: Surgical History Past Surgical History: Procedure Laterality Date APPENDECTOMY RETINAL DETACHMENT SURGERY SPLENECTOMY, TOTAL TONSILLECTOMY AND ADENOIDECTOMY (HISTORICAL) TYMPANOSTOMY TUBE PLACEMENT Current Medications: Current Outpatient Medications Medication Instructions famotidine (PEPCID) 40 mg, Oral, Every morning mupirocin (Bactroban) 2 % ointment apply to affected area twice a day if needed Allergies: Cephalexin, Cephalosporins, Citronella oil, and Penicillins Social History: Social History Socioeconomic History Marital status: Single Spouse name: Not on file Number of children: Not on file Years of education: Not on file Highest education level: Not on file Occupational History Not on file Tobacco Use Smoking status: Former Types: Cigarettes Quit date: 05/19/2015 Years since quittin.9 Smokeless tobacco: Never Vaping Use Vaping Use: Never used Substance and Sexual Activity Alcohol use: No Alcohol/week: 0.0 standard drinks of alcohol Drug use: No Sexual activity: Not on file Other Topics Concern Not on file Social History Narrative Not on file Social Determinants of Health Financial Resource Strain: Not on file Food Insecurity: Not on file Transportation Needs: Not on file Physical Activity: Not on file Stress: Not on file Social Connections: Not on file Intimate Partner Violence: Not on file Housing Stability: Not on file Family History: Family History Family History Problem Relation Name Age of Onset No Known Problems Mother No Known Problems Father REVIEW OF SYSTEMS: Review of Systems Constitutional: Negative for fatigue. HENT: Negative for ear discharge and rhinorrhea. Eyes: Negative for discharge and redness. Respiratory: Negative for chest tightness and shortness of breath. Cardiovascular: Negative for chest pain. Gastrointestinal: Negative for abdominal pain. Musculoskeletal: Negative for gait problem. Skin: Soft tissue mass of the forehead Neurological: Negative for weakness. Psychiatric/Behavioral: Negative for behavioral problems. PHYSICAL EXAM: VITALS: Ht 5' 9 (1.753 m) Wt 187 lb (84.8 kg) BMI 27.62 kg/m CONSTITUTIONAL: awake, alert, cooperative, no apparent distress, and appears stated age EYES: PERRLA, EOMI, no signs of occular infection LUNGS: No increased work of breathing, good air exchange, clear to auscultation bilaterally, no crackles or wheezing CARDIOVASCULAR: Normal apical impulse, regular rate and rhythm, normal S1 and S2, no S3 or S4, and no murmur noted ABDOMEN: Soft, nontender, nondistended. EXTREMITIES: no signs of clubbing or cyanosis. MUSCULOSKELETAL: negative for flaccid muscle tone or spastic movements. NEURO: Cranial nerves II-XII grossly intact. No signs of agitated mood. SKIN: 1.5 cm x 1.5 cm soft tissue mass of the right forehead, normal skin in color, regular round border, raised, no signs of bleeding, drainage or infection. Non tender to palpation. No central punctum. No overlying erythema, or signs and symptoms suggestive of infection or inflammation. DATA: Labs: CBC: Lab Results Component Value Date WBC 12.4 (H) 05/02/2022 RBC 5.37 05/02/2022 HGB 14.6 05/02/2022 HCT 46.0 05/02/2022 MCV 85.6 05/02/2022 MCH 27.1 05/02/2022 MCHC 31.7 (L) 05/02/2022 RDW 15.7 (H) 05/02/2022 PLT 463 (H) 05/02/2022 MPV 9.0 05/02/2022 BMP: Lab Results Component Value Date NA 141 05/02/2022 K 5.0 05/02/2022 CL 104 05/02/2022 CO2 29 05/02/2022 BUN 23 (H) 05/02/2022 CREATININE 1.21 05/02/2022 CALCIUM 9.6 05/02/2022 GLUCOSE 96 05/02/2022 Radiology Review: No radiology needed at this time Pathology Review: No Pathology reviewed IMPRESSION/RECOMMENDATIONS: Diagnosis 1-) soft tissue mass of the right forehead -We will plan to proceed with excision soft tissue mass of the right forehead under local anesthesia as an outpatient at [facility]. The orders are in. -The risks, benefits and options were discussed with the pt. The risks included but not limited to pain, bleeding, infection, heavy scarring, damage to surrounding structures, fluid collections, asymmetry, and need for further procedures. All of His questions were answered to their satisfaction and He agrees to proceed with the procedure. documented in this encounter [facility] 05-20-2023 Miscellaneous Notes Patient ambulated in hallway and tolerated well. Peripheral IV removed without complication. Discharge instructions reviewed with patient. All questions answered. Patient verbalized understanding of instructions received. Discharge packet given to patient. Patient denies pain. Denies dizziness and nausea. Patient declined to receive discharge medications as he states he has them at home. All belongings taken with patient on discharge. Family/visitor updated and at bedside with patient. 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 Sindhu Espinosa MD Procedure Summary Anesthesia: Choice ASA: II Estimated Blood Loss: 2 mL Total IV Fluids: 200 for the mL Drains: * None in log * Specimens ID Source Type Tests Collected By Collected At Frozen? Priority Lab ID 1 Forehead Tissue TISSUE EXAM Nasrin Jaffe MD 05/20/23 1203 No [id number] Description: FOREHEAD SOFT TISSUE Staff: Washroom Cleaner: Isadora Rico RN Relief Washroom Cleaner: Neelam Farooq RN Scrub Person: Jenny Meade RN [employer] Resource Manager Student: Xi Guerrero Indications: Neal Larios is an 32 y.o. 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 Patient presented with a soft tissue mass of the central portion of the forehead for 4 years. On clinical examination this was thought to be noncystic in nature possibly a lipoma. Patient was seen and evaluated in the preoperative holding area where his wristband was maximally stated name and date of . The soft tissue mass was pointed out by the patient and marked. We discussed risk and benefits including but not limited to infection, bleeding, seroma and hematoma formation as well as scarring with hypertrophic or keloidal scar. All patient questions were answered to his satisfaction. Patient signed informed consent. Technical details: Patient was subsequently taken to the operating room. He was placed in the supine position. After induction of MAC anesthesia the area was marked for excision in an transverse elliptical fashion 2 cm long and 5 mm wide along the lateral skin crease lines Area was infiltrated with 3 cc of quarter percent Marcaine with epinephrine. We waited for a few minutes until the blanching of palpable epinephrine was appreciated. Using a 15 blade knife incision was made through the skin ellipse down to the subcutaneous tissue. Using a coagulating Bovie incision was taken down through the subcutaneous tissue until the frontalis muscle was encountered. The frontalis muscle was split lateral to the fibers in the longitudinal direction. At that point it was encapsulated lipoma was encountered. Excision of the lipoma was performed with a coagulating Bovie by dissecting in the loops of yellow tissue outside the to the lipoma. Lipoma was found to be deep and attached to the underlying periosteum. Lipoma capsule was dissected from the underlying periosteum. Hemostasis was achieved with the coagulating Bovie. Frontalis muscle was approximated in the longitudinal fashion using 4-0 Monocryl in an inverted interrupted fashion The skin was approximated with 3-0 PDS suture in an inverted interrupted fashion for the deep dermis followed by approximation of the superficial dermis and epidermis with a 4-0 Monocryl in a running subcuticular fashion. Incision was cleaned, dried and Dermabond was applied Patient tolerated the procedure well. Debridement was done as per protocol. All counts were correct in terms of needles, instruments and sponges. Patient was safely awakened and transferred from the operating room to the PACU for postoperative care. Please disregard any typographical errors. This note was partially dictated using voice recognition software. documented in this encounter [facility] 05-20-2023 Note Formatting of this n ote might be different from the original. Patient ambulated in hallway and tolerated well. Peripheral IV removed without complication. Discharge instructions reviewed with patient. All questions answered. Patient verbalized understanding of instructions received. Discharge packet given to patient. Patient denies pain. Denies dizziness and nausea. Patient declined to receive discharge medications as he states he has them at home. All belongings taken with patient on discharge. [facility] 05-20-2023 Note Formatting of this n ote might be different from the original. Patient ambulated in hallway and tolerated well. Peripheral IV removed without complication. Discharge instructions reviewed with patient. All questions answered. Patient verbalized understanding of instructions received. Discharge packet given to patient. Patient denies pain. Denies dizziness and nausea. Patient declined to receive discharge medications as he states he has them at home. All belongings taken with patient on discharge. [facility] 05-20-2023 Note Formatting of this n ote might be different from the original. Family/visitor updated and at bedside with patient. [facility] 05-20-2023 Note Formatting of this n ote might be different from the original. Family/visitor updated and at bedside with patient. [facility] 05-20-2023 Hospital Discharg e instructions Sindhu Espinosa MD - 05/20/2023 12:27 PM EST OK to shower and get incision wet tomorrow. Do not scrub at incision and no submerging in water. Pat dry. Dermabond glue will act as a dressing. Take tylenol/Motrin around the clock every 6 hours for the first 48 hours for pain. After 48 hours you may take as needed. Follow up with Dr. Jaffe in 2 weeks, call office to schedule. Call office with questions/concerns. documented in this encounter [facility] 05-20-2023 Note Formatting of this n ote is different from the original. 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 Sindhu Espinosa MD Procedure Summary Anesthesia: Choice ASA: II Estimated Blood Loss: 2 mL Total IV Fluids: 200 for the mL Drains: * None in log * Specimens ID Source Type Tests Collected By Collected At Frozen? Priority Lab ID 1 Forehead Tissue TISSUE EXAM Nasrin Jaffe MD 05/20/23 1203 No [id number] Description: FOREHEAD SOFT TISSUE Staff: Washroom Cleaner: Isadora Rico RN Relief Washroom Cleaner: Neelam Farooq RN Scrub Person: Jenny Meade RN [employer] Resource Manager Student: Xi Guerrero Indications: Neal Larios is an 32 y.o. 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 Patient presented with a soft tissue mass of the central portion of the forehead for 4 years. On clinical examination this was thought to be noncystic in nature possibly a lipoma. Patient was seen and evaluated in the preoperative holding area where his wristband was maximally stated name and date of . The soft tissue mass was pointed out by the patient and marked. We discussed risk and benefits including but not limited to infection, bleeding, seroma and hematoma formation as well as scarring with hypertrophic or keloidal scar. All patient questions were answered to his satisfaction. Patient signed informed consent. Technical details: Patient was subsequently taken to the operating room. He was placed in the supine position. After induction of MAC anesthesia the area was marked for excision in an transverse elliptical fashion 2 cm long and 5 mm wide along the lateral skin crease lines Area was infiltrated with 3 cc of quarter percent Marcaine with epinephrine. We waited for a few minutes until the blanching of palpable epinephrine was appreciated. Using a 15 blade knife incision was made through the skin ellipse down to the subcutaneous tissue. Using a coagulating Bovie incision was taken down through the subcutaneous tissue until the frontalis muscle was encountered. The frontalis muscle was split lateral to the fibers in the longitudinal direction. At that point it was encapsulated lipoma was encountered. Excision of the lipoma was performed with a coagulating Bovie by dissecting in the loops of yellow tissue outside the to the lipoma. Lipoma was found to be deep and attached to the underlying periosteum. Lipoma capsule was dissected from the underlying periosteum. Hemostasis was achieved with the coagulating Bovie. Frontalis muscle was approximated in the longitudinal fashion using 4-0 Monocryl in an inverted interrupted fashion The skin was approximated with 3-0 PDS suture in an inverted interrupted fashion for the deep dermis followed by approximation of the superficial dermis and epidermis with a 4-0 Monocryl in a running subcuticular fashion. Incision was cleaned, dried and Dermabond was applied Patient tolerated the procedure well. Debridement was done as per protocol. All counts were correct in terms of needles, instruments and sponges. Patient was safely awakened and transferred from the operating room to the PACU for postoperative care. Please disregard any typographical errors. This note was partially dictated using voice recognition software. [facility] 05-20-2023 Note Formatting of this n ote is different from the original. 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 Sindhu Espinosa MD Procedure Summary Anesthesia: Choice ASA: II Estimated Blood Loss: 2 mL Total IV Fluids: 200 for the mL Drains: * None in log * Specimens ID Source Type Tests Collected By Collected At [facility]? Priority Lab ID 1 Forehead Tissue TISSUE EXAM Nasrin Jaffe MD 05/20/23 1203 No [id number] Description: FOREHEAD SOFT TISSUE Staff: Washroom Cleaner: Isadora Rico RN Relief Washroom Cleaner: Neelam Farooq RN Scrub Person: Jenny Meade RN [employer] Resource Manager Student: Xi Guerrero Indications: Neal Larios is an 32 y.o. 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 Patient presented with a soft tissue mass of the central portion of the forehead for 4 years. On clinical examination this was thought to be noncystic in nature possibly a lipoma. Patient was seen and evaluated in the preoperative holding area where his wristband was maximally stated name and date of . The soft tissue mass was pointed out by the patient and marked. We discussed risk and benefits including but not limited to infection, bleeding, seroma and hematoma formation as well as scarring with hypertrophic or keloidal scar. All patient questions were answered to his satisfaction. Patient signed informed consent. Technical details: Patient was subsequently taken to the operating room. He was placed in the supine position. After induction of MAC anesthesia the area was marked for excision in an transverse elliptical fashion 2 cm long and 5 mm wide along the lateral skin crease lines Area was infiltrated with 3 cc of quarter percent Marcaine with epinephrine. We waited for a few minutes until the blanching of palpable epinephrine was appreciated. Using a 15 blade knife incision was made through the skin ellipse down to the subcutaneous tissue. Using a coagulating Bovie incision was taken down through the subcutaneous tissue until the frontalis muscle was encountered. The frontalis muscle was split lateral to the fibers in the longitudinal direction. At that point it was encapsulated lipoma was encountered. Excision of the lipoma was performed with a coagulating Bovie by dissecting in the loops of yellow tissue outside the to the lipoma. Lipoma was found to be deep and attached to the underlying periosteum. Lipoma capsule was dissected from the underlying periosteum. Hemostasis was achieved with the coagulating Bovie. Frontalis muscle was approximated in the longitudinal fashion using 4-0 Monocryl in an inverted interrupted fashion The skin was approximated with 3-0 PDS suture in an inverted interrupted fashion for the deep dermis followed by approximation of the superficial dermis and epidermis with a 4-0 Monocryl in a running subcuticular fashion. Incision was cleaned, dried and Dermabond was applied Patient tolerated the procedure well. Debridement was done as per protocol. All counts were correct in terms of needles, instruments and sponges. Patient was safely awakened and transferred from the operating room to the PACU for postoperative care. Please disregard any typographical errors. This note was partially dictated using voice recognition software. [facility] 05-02-2023 Telephone encounter Note Notified, scheduled, orders pended. [facility] 05-02-2023 Telephone encounter Note ----- Message from KEYONA Fierro CNP sent at 05/02/2023 10:03 AM EDT ----- CMP-normal kidney and liver functioning HIV negative Hepatitis C negative Lipid panel-total cholesterol elevated at 213, HDL good at 43, triglycerides are good at 104, LDL cholesterol is elevated at 148, recommend strict low-fat low-cholesterol diet and rechecking in 4 weeks, at that time if still elevated would recommend starting cholesterol medication [facility] 05-02-2023 Miscellaneous Notes Notified, scheduled, orders pended. ----- Message from KEYONA Fierro CNP sent at 05/02/2023 10:03 AM EDT ----- CMP-normal kidney and liver functioning HIV negative Hepatitis C negative Lipid panel-total cholesterol elevated at 213, HDL good at 43, triglycerides are good at 104, LDL cholesterol is elevated at 148, recommend strict low-fat low-cholesterol diet and rechecking in 4 weeks, at that time if still elevated would recommend starting cholesterol medication documented in this encounter [facility] [employer] 05-01-2023 History of Presen t illness Narrative Verified by name and . Images from the original note were not included. 05/01/2023 Annamarie Larios (: 1990) is a 32 y.o. male , Established patient, here for evaluation of the following chief complaint(s): Annual Exam, Health Maintenance (HIV Screening-agrees/COVID-19 Vaccine-none/DTaP/Tdap/Td Vaccines-states he had one in 2014/Varicella Vaccines-had chicken pox as a child/Hepatitis C Screening-agrees/Hepatitis B Vaccines-declines/Meningococcal Vaccine-declines/Influenza Vaccine-declines), and Blood Work ASSESSMENT/PLAN: 1. Annual physical exam - Lipid panel - Comprehensive metabolic panel 2. Need for hepatitis C screening test - Hepatitis C antibody 3. Screening for HIV (human immunodeficiency virus) - HIV-1 and HIV-2 Antigen-Antibody Screen 4. Screening for lipid disorders - Lipid panel Follow up for Yearly Wellness Visit. SUBJECTIVE/OBJECTIVE: HPI - Annamarie Larios (: 1990) is a 32 y.o. male , Established patient, here for the evaluation of the following chief complaint(s): Annual Exam, Health Maintenance (HIV Screening-agrees/COVID-19 Vaccine-none/DTaP/Tdap/Td Vaccines-states he had one in 2014/Varicella Vaccines-had chicken pox as a child/Hepatitis C Screening-agrees/Hepatitis B Vaccines-declines/Meningococcal Vaccine-declines/Influenza Vaccine-declines), and Blood Work Presents today for annual exam, has no acute complaints. Lives at home with his daughter who is in third grade and reports everything is going well. Work is doing well at the [employer]- 6.5 years. . Has scheduled with plastic surgery to have a soft tissue mass removed from the forehead in June. Reports that he did have a rash around his neck a few weeks ago that has now resolved except for 1 small lesion that is scabbed and he is putting Bactroban on it reports it is healing fine no increased redness or drainage Due for his annual blood work today. Prior to Admission medications Medication Sig Start Date End Date Taking? Authorizing Provider famotidine (Pepcid) 40 MG tablet take 1 tablet by mouth every morning 04/25/23 Yes Lanny Claudio APRN - DAT mupirocin (Bactroban) 2 % ointment apply to affected area twice a day if needed 01/19/22 Yes Historical Provider, famotidine (Pepcid) 40 MG tablet Take 1 tablet (40 mg) by mouth in the morning. 05/02/22 04/25/23 Nikita Sorensen MD terbinafine (LamISIL) 1 % cream apply to affected area twice a day for 14 days 05/24/22 04/30/23 Historical Provider, Review of Systems Constitutional: Negative. HENT: Negative. Eyes: Negative. Respiratory: Negative. Cardiovascular: Negative. Gastrointestinal: Negative. Genitourinary: Negative. Musculoskeletal: Negative. Skin: Positive for wound. Neurological: Negative. Psychiatric/Behavioral: Negative. Negative for sleep disturbance. Vitals: 05/01/23 0911 BP: 129/84 Pulse: 84 Temp: 36.9 C (98.4 F) TempSrc: Temporal SpO2: 98% Physical Exam Vitals reviewed. Constitutional: General: He is not in acute distress. Appearance: Normal appearance. He is normal weight. He is not ill-appearing or toxic-appearing. HENT: Head: Normocephalic and atraumatic. Comments: Noted soft semimobile mass right forehead Right Ear: Tympanic membrane, ear canal and external ear normal. There is no impacted cerumen. Left Ear: Tympanic membrane, ear canal and external ear normal. There is no impacted cerumen. Nose: Nose normal. No congestion or rhinorrhea. Mouth/Throat: Mouth: Mucous membranes are moist. Pharynx: Oropharynx is clear. No oropharyngeal exudate or posterior oropharyngeal erythema. Eyes: Conjunctiva/sclera: Conjunctivae normal. Pupils: Pupils are equal, round, and reactive to light. Neck: Cardiovascular: Rate and Rhythm: Normal rate and regular rhythm. Pulses: Normal pulses. Heart sounds: Normal heart sounds. No murmur heard. Pulmonary: Effort: Pulmonary effort is normal. No respiratory distress. Breath sounds: Normal breath sounds. Abdominal: General: Abdomen is flat. Bowel sounds are normal. Palpations: Abdomen is soft. There is no mass. Tenderness: There is no abdominal tenderness. There is no right CVA tenderness or left CVA tenderness. Musculoskeletal: General: Normal range of motion. Cervical back: Normal range of motion and neck supple. No rigidity or tenderness. Lymphadenopathy: Cervical: No cervical adenopathy. Skin: General: Skin is warm and dry. Neurological: General: No focal deficit present. Mental Status: He is alert and oriented to person, place, and time. Psychiatric: Mood and Affect: Mood normal. Behavior: Behavior normal. An electronic signature was used to authenticate this note. KEYONA Fierro CNP 05/01/2023 1:54 PM documented in this encounter [facility] 04-30-2023 Telephone encounter Note Case# [id number] Procedure: excision soft tissue mass of the right forehead intermediate versus complex closure Sx Date: 05/20/23 Time: 1 HOUR Location: [facility] 2 PM Anesthesia: GENERAL OR MAC CPT: 69936,[id number] ICD-10: M79.89 Special Equipment: PAT: SAME DAY HP PCNR PER PRE CERT TOOL ON AVAILITY [facility] 04-30-2023 Miscellaneous Notes Case# [id number] Procedure: excision soft tissue mass of the right forehead intermediate versus complex closure Sx Date: 05/20/23 Time: 1 HOUR Location: [facility] 2 PM Anesthesia: GENERAL OR MAC CPT: 41821,[id number] ICD-10: M79.89 Special Equipment: PAT: SAME DAY HP PCNR PER PRE CERT TOOL ON AVAILITY ----- Message from Edwina Delaney PA-C sent at 04/30/2023 1:55 PM EDT ----- Stefania, This patient is to be scheduled for excision soft tissue mass of the right forehead intermediate versus complex closure under local anesthesia an outpatient at [facility]. We will need 1 hour. Thank you Edwina East PA-C documented in this encounter [facility] 04-30-2023 Telephone encounter Note ----- Message from Edwina Delaney PA-C sent at 04/30/2023 1:55 PM EDT ----- Stefania, This patient is to be scheduled for excision soft tissue mass of the right forehead intermediate versus complex closure under local anesthesia an outpatient at [facility]. We will need 1 hour. Thank you Edwina East PA-C [facility] 04-30-2023 History of Presen t illness Narrative Department of Plastic Surgery - Adult Attending Consult Note CHIEF COMPLAINT: Soft tissue mass of the forehead History Obtained From: patient, EMR HISTORY OF PRESENT ILLNESS: The patient is a 32 y.o. male who presents with soft tissue mass of the forehead. The patient states that they first noticed the lesion 4 years ago. It has grown in size since they first noticed the lesion. The lesion has not changed in color and has not had discharge or bleeding. The pt has not the lesion biopsied previously. The patient has not had the lesion removed previously. The patient states the lesion is not painful, but is just aesthetically bothersome. The pt denies any associated symptoms. Past Medical History: Past Medical History: Diagnosis Date ADHD (attention deficit hyperactivity disorder) Eczema IBS (irritable bowel syndrome) [place] exposure MRSA (methicillin resistant staph aureus) culture positive Substance abuse ([facility]) ([facility]) Past Surgical History: Past Surgical History: Procedure Laterality Date APPENDECTOMY RETINAL DETACHMENT SURGERY SPLENECTOMY, TOTAL TONSILLECTOMY AND ADENOIDECTOMY (HISTORICAL) TYMPANOSTOMY TUBE PLACEMENT Current Medications: Current Outpatient Medications Medication Instructions famotidine (PEPCID) 40 mg, Oral, Every morning mupirocin (Bactroban) 2 % ointment apply to affected area twice a day if needed Allergies: Cephalexin, Cephalosporins, Citronella oil, and Penicillins Social History: Social History Socioeconomic History Marital status: Single Spouse name: Not on file Number of children: Not on file Years of education: Not on file Highest education level: Not on file Occupational History Not on file Tobacco Use Smoking status: Former Types: Cigarettes Quit date: 05/19/2015 Years since quittin.9 Smokeless tobacco: Never Vaping Use Vaping Use: Never used Substance and Sexual Activity Alcohol use: No Alcohol/week: 0.0 standard drinks of alcohol Drug use: No Sexual activity: Not on file Other Topics Concern Not on file Social History Narrative Not on file Social Determinants of Health Financial Resource Strain: Not on file Food Insecurity: Not on file Transportation Needs: Not on file Physical Activity: Not on file Stress: Not on file Social Connections: Not on file Intimate Partner Violence: Not on file Housing Stability: Not on file Family History: Family History Problem Relation Name Age of Onset No Known Problems Mother No Known Problems Father REVIEW OF SYSTEMS: Review of Systems Constitutional: Negative for fatigue. HENT: Negative for ear discharge and rhinorrhea. Eyes: Negative for discharge and redness. Respiratory: Negative for chest tightness and shortness of breath. Cardiovascular: Negative for chest pain. Gastrointestinal: Negative for abdominal pain. Musculoskeletal: Negative for gait problem. Skin: Soft tissue mass of the forehead Neurological: Negative for weakness. Psychiatric/Behavioral: Negative for behavioral problems. PHYSICAL EXAM: VITALS: Ht 5' 9 (1.753 m) Wt 187 lb (84.8 kg) BMI 27.62 kg/m CONSTITUTIONAL: awake, alert, cooperative, no apparent distress, and appears stated age EYES: PERRLA, EOMI, no signs of occular infection LUNGS: No increased work of breathing, good air exchange, clear to auscultation bilaterally, no crackles or wheezing CARDIOVASCULAR: Normal apical impulse, regular rate and rhythm, normal S1 and S2, no S3 or S4, and no murmur noted ABDOMEN: Soft, nontender, nondistended. EXTREMITIES: no signs of clubbing or cyanosis. MUSCULOSKELETAL: negative for flaccid muscle tone or spastic movements. NEURO: Cranial nerves II-XII grossly intact. No signs of agitated mood. SKIN: 1.5 cm x 1.5 cm soft tissue mass of the right forehead, normal skin in color, regular round border, raised, no signs of bleeding, drainage or infection. Non tender to palpation. No central punctum. No overlying erythema, or signs and symptoms suggestive of infection or inflammation. DATA: Labs: CBC: Lab Results Component Value Date WBC 12.4 (H) 05/02/2022 RBC 5.37 05/02/2022 HGB 14.6 05/02/2022 HCT 46.0 05/02/2022 MCV 85.6 05/02/2022 MCH 27.1 05/02/2022 MCHC 31.7 (L) 05/02/2022 RDW 15.7 (H) 05/02/2022 PLT 463 (H) 05/02/2022 MPV 9.0 05/02/2022 BMP: Lab Results Component Value Date NA 141 05/02/2022 K 5.0 05/02/2022 CL 104 05/02/2022 CO2 29 05/02/2022 BUN 23 (H) 05/02/2022 CREATININE 1.21 05/02/2022 CALCIUM 9.6 05/02/2022 GLUCOSE 96 05/02/2022 Radiology Review: No radiology needed at this time Pathology Review: No Pathology reviewed IMPRESSION/RECOMMENDATIONS: Diagnosis 1-) soft tissue mass of the right forehead -We will plan to proceed with excision soft tissue mass of the right forehead under local anesthesia as an outpatient at [facility]. The orders are in. -The risks, benefits and options were discussed with the pt. The risks included but not limited to pain, bleeding, infection, heavy scarring, damage to surrounding structures, fluid collections, asymmetry, and need for further procedures. All of His questions were answered to their satisfaction and He agrees to proceed with the procedure. Our office to contact patient regarding scheduling surgery. Photos obtained The physician was present, and has seen and examined the patient at the bedside with me. Edwina East PA-C documented in this encounter [facility] 04-28-2023 Telephone encounter Note Scheduled. [facility] 04-28-2023 Miscellaneous Notes Scheduled. Images from the original note were not included. KEYONA Parker CNP 04/25/23 11:50 AM Note Rx sent with no refills. Due for annual physical next month- please schedule. Left a message to return call. Rx sent with no refills. Due for annual physical next month- please schedule. Prescription Request: Last medication check: 04/12/19 Last physical exam: 05/02/22 Next scheduled appointment: none Last date of refill on this medication 05/02/22 60 with 5 refills documented in this encounter [facility] 04-25-2023 Telephone encounter Note Message released to patient as written. Patient Verbalized Understanding Patient's further questions if applicable: None Patient is scheduled for Physical Were all questions from office addressed or relayed to the patient from encounter: Yes [facility] 04-25-2023 Miscellaneous Notes Message released to patient as written. Patient Verbalized Understanding Patient's further questions if applicable: None Patient is scheduled for Physical Were all questions from office addressed or relayed to the patient from encounter: Yes documented in this encounter [facility] 04-25-2023 Telephone encounter Note Images from the original note were not included. KEYONA Parker CNP 04/25/23 11:50 AM Note Rx sent with no refills. Due for annual physical next month- please schedule. Left a message to return call. [facility] 04-25-2023 Miscellaneous Notes Images from the original note were not included. KEYONA Parker CNP 04/25/23 11:50 AM Note Rx sent with no refills. Due for annual physical next month- please schedule. Left a message to return call. Rx sent with no refills. Due for annual physical next month- please schedule. Prescription Request: Last medication check: 04/12/19 Last physical exam: 05/02/22 Next scheduled appointment: none Last date of refill on this medication 05/02/22 60 with 5 refills documented in this encounter [facility] 04-25-2023 Telephone encounter Note Rx sent with no refills. Due for annual physical next month- please schedule. [facility] 04-25-2023 Telephone encounter Note Prescription Request: Last medication check: 04/12/19 Last physical exam: 05/02/22 Next scheduled appointment: none Last date of refill on this medication 05/02/22 60 with 5 refills [facility] 10-24-2022 Telephone encounter Note Patient cannot make it in during any of your openings today and will keep scheduled appointment tomorrow. [facility] 10-24-2022 Miscellaneous Notes Patient cannot make it in during any of your openings today and will keep scheduled appointment tomorrow. He will need to be seen in office. S: Patient called the clinical access center with complaint of tooth abscess, B: Ongoing few days A: Patient c/o he drained the abscess yesterday at home. Upper right side of mouth. He did have root canal 4 months ago. Pain 2-3/10. He is concerned about an infection and is wanting an antibiotic. Denies fever now, missed work on Friday10/21/22 with low grade fever. Unable to get a hold of dentist in [place]. Face is not as swollen as it was before he drained the abscess. He is asking for antibiotic to be called to his pharmacy R: Appointment scheduled 10/25/22 at 0840 with Jacobo Robb, if prescription can be called in, he would be fine with not coming in tomorrow. Insurance verified. Instructed to bring medications to OV and wear a mask. Home Care advice given. Patient instructed to call back with worsening symptoms, concerns or questions. Patient verbalized understanding. Message to the office for review by the provider and needs recommendation from Provider for treatment going forward. Reason for Disposition Toothache present > 24 hours Protocols used: [id number] 3/10 pain, wants to get infection taken care of and requesting antibiotic or if he needs seen. Root canal 3-4 months ago on that tooth and assuming unsuccessful documented in this encounter [facility] 10-24-2022 Telephone encounter Note He will need to be seen in office. [facility] [employer] Work Phone: 10-24-2022 Telephone encounter Note S: Patient called the clinical access center with complaint of tooth abscess, B: Ongoing few days A: Patient c/o he drained the abscess yesterday at home. Upper right side of mouth. He did have root canal 4 months ago. Pain 2-3/10. He is concerned about an infection and is wanting an antibiotic. Denies fever now, missed work on Friday10/21/22 with low grade fever. Unable to get a hold of dentist in [place]. Face is not as swollen as it was before he drained the abscess. He is asking for antibiotic to be called to his pharmacy R: Appointment scheduled 10/25/22 at 0840 with Jacobo Robb, if prescription can be called in, he would be fine with not coming in tomorrow. Insurance verified. Instructed to bring medications to OV and wear a mask. Home Care advice given. Patient instructed to call back with worsening symptoms, concerns or questions. Patient verbalized understanding. Message to the office for review by the provider and needs recommendation from Provider for treatment going forward. Reason for Disposition Toothache present > 24 hours Protocols used: [id number] 3/10 pain, wants to get infection taken care of and requesting antibiotic or if he needs seen. Root canal 3-4 months ago on that tooth and assuming unsuccessful [facility] 10-21-2022 Note HNO ID: [id number] Author: Didier Kilgore APRN.[facility] Service: ? Author Type: Nurse Practitioner Type: Progress Notes Filed: 10/21/2022 9:00 AM Note Text: Subjective HPI Nontoxic-appearing male presents urgent care chief complaint URI-like symptoms. Duration of symptoms 1 day. Associated symptoms cough headache body aches sore throat. Duration of symptoms upon arising. Associated symptoms as above. Presents today for rule out of strep throat. States daughter tested positive for strep throat yesterday. No other known sick contacts. Did not use any OTC medications. Denies any fever chills productive cough chest pain shortness of breath pleuritic pain hemoptysis nausea vomiting abdominal pain change in bowel or bladder habits. Past medical history prescription medication use and allergies reviewed. .Patient presents with: Sore Throat: Cough, MENDOZA, body aches started this morning PAST MEDICAL HISTORY Diagnosis Date ADHD (attention deficit hyperactivity disorder) Bipolar 1 disorder ([facility]) Eczema Hx MRSA infection IBS (irritable bowel syndrome) Substance abuse ([facility]) No past surgical history on file. ALLERGIES Cephlasporins [Cephalosporins] and Penicillins MEDICATIONS famotidine (PEPCID) 40 mg tablet Take 40 mg by mouth. EPINEPHrine (EPIPEN 2-KAMILA) 0.3 mg/0.3 mL auto-injector Inject 0.3 mL intramuscularly as needed. (Patient not taking: Reported on 05/15/2022) No family history on file. Social History Tobacco Use Smoking status: Every Day Smokeless tobacco: Never BP 132/80 Pulse 100 Temp 36.9 ?C (98.4 ?F) Resp 21 Wt 84.6 kg (186 lb 6.4 oz) SpO2 98% Review of Systems Constitutional: Negative for chills, fever and malaise/fatigue. HENT: Positive for congestion and sore throat. Negative for ear discharge, ear pain and sinus pain. Eyes: Negative for blurred vision, pain, discharge and redness. Respiratory: Positive for cough. Negative for hemoptysis, sputum production, shortness of breath, wheezing and stridor. Cardiovascular: Negative for chest pain. Gastrointestinal: Negative for abdominal pain, diarrhea, nausea and vomiting. Musculoskeletal: Positive for myalgias. Skin: Negative for itching and rash. Neurological: Positive for headaches. Negative for dizziness. Objective Physical Exam Constitutional: General: He is not in acute distress. Appearance: He is not diaphoretic. HENT: Head: Normocephalic. Jaw: No trismus, tenderness, swelling or pain on movement. Mouth/Throat: Lips: Gifford. Mouth: Mucous membranes are moist. Pharynx: Oropharynx is clear. Uvula midline. Posterior oropharyngeal erythema present. No pharyngeal swelling, oropharyngeal exudate or uvula swelling. Eyes: Conjunctiva/sclera: Conjunctivae normal. Pupils: Pupils are equal, round, and reactive to light. Cardiovascular: Rate and Rhythm: Normal rate and regular rhythm. Heart sounds: Normal heart sounds. Pulmonary: Effort: Pulmonary effort is normal. No tachypnea, accessory muscle usage or respiratory distress. Breath sounds: Normal breath sounds. No stridor. No wheezing, rhonchi or rales. Abdominal: Palpations: Abdomen is soft. Tenderness: There is no abdominal tenderness. There is no guarding or rebound. Musculoskeletal: Cervical back: Normal range of motion and neck supple. No rigidity or tenderness. Lymphadenopathy: Cervical: No cervical adenopathy. Skin: General: Skin is warm and dry. Neurological: Mental Status: He is alert and oriented to person, place, and time. ASSESSMENT/PLAN: 1. Sore throat - ICD9: 462, ICD10: J02.9 (primary diagnosis) - suspect viral - Rapid Strep negative in the office today - Discussed supportive care treatment with fluids, rest and analgesia. - STREP A MOLECULAR (POC) 2. Viral URI - ICD9: 465.9, ICD10: J06.9 - Discussed viral etiology and rationale for treatment. - Symptomatic treatment with prn analgesia - Supportive care with fluids and rest Patient will follow up with primary care provider as needed. Patient was instructed to immediately proceed to emergency room for any new, worsening, or symptoms lasting longer than anticipated. The patient's clinical presentation is otherwise unremarkable at this time. Based on exam and clinical finding, the patient is stable for discharge. Plan of care was discussed with patient. Patient verbalizes understanding and agrees to plan of care. This note was generated using Cell[employer] software. It may contain errors in wording, punctuation, or spelling. Didier Kilgore APRN.[facility] 10-21-2022 History of Presen t illness Narrative Subjective HPI Nontoxic-appearing male presents urgent care chief complaint URI-like symptoms. Duration of symptoms 1 day. Associated symptoms cough headache body aches sore throat. Duration of symptoms upon arising. Associated symptoms as above. Presents today for rule out of strep throat. States daughter tested positive for strep throat yesterday. No other known sick contacts. Did not use any OTC medications. Denies any fever chills productive cough chest pain shortness of breath pleuritic pain hemoptysis nausea vomiting abdominal pain change in bowel or bladder habits. Past medical history prescription medication use and allergies reviewed. .Patient presents with: Sore Throat: Cough, MENDOZA, body aches started this morning PAST MEDICAL HISTORY Diagnosis Date ADHD (attention deficit hyperactivity disorder) Bipolar 1 disorder ([facility]) Eczema Hx MRSA infection IBS (irritable bowel syndrome) Substance abuse ([facility]) No past surgical history on file. ALLERGIES Cephlasporins [Cephalosporins] and Penicillins MEDICATIONS famotidine (PEPCID) 40 mg tablet Take 40 mg by mouth. EPINEPHrine (EPIPEN 2-KAMILA) 0.3 mg/0.3 mL auto-injector Inject 0.3 mL intramuscularly as needed. (Patient not taking: Reported on 05/15/2022) No family history on file. Social History Tobacco Use Smoking status: Every Day Smokeless tobacco: Never BP 132/80 Pulse 100 Temp 36.9 C (98.4 F) Resp 21 Wt 84.6 kg (186 lb 6.4 oz) SpO2 98% Review of Systems Constitutional: Negative for chills, fever and malaise/fatigue. HENT: Positive for congestion and sore throat. Negative for ear discharge, ear pain and sinus pain. Eyes: Negative for blurred vision, pain, discharge and redness. Respiratory: Positive for cough. Negative for hemoptysis, sputum production, shortness of breath, wheezing and stridor. Cardiovascular: Negative for chest pain. Gastrointestinal: Negative for abdominal pain, diarrhea, nausea and vomiting. Musculoskeletal: Positive for myalgias. Skin: Negative for itching and rash. Neurological: Positive for headaches. Negative for dizziness. Objective Physical Exam Constitutional: General: He is not in acute distress. Appearance: He is not diaphoretic. HENT: Head: Normocephalic. Jaw: No trismus, tenderness, swelling or pain on movement. Mouth/Throat: Lips: Gifford. Mouth: Mucous membranes are moist. Pharynx: Oropharynx is clear. Uvula midline. Posterior oropharyngeal erythema present. No pharyngeal swelling, oropharyngeal exudate or uvula swelling. Eyes: Conjunctiva/sclera: Conjunctivae normal. Pupils: Pupils are equal, round, and reactive to light. Cardiovascular: Rate and Rhythm: Normal rate and regular rhythm. Heart sounds: Normal heart sounds. Pulmonary: Effort: Pulmonary effort is normal. No tachypnea, accessory muscle usage or respiratory distress. Breath sounds: Normal breath sounds. No stridor. No wheezing, rhonchi or rales. Abdominal: Palpations: Abdomen is soft. Tenderness: There is no abdominal tenderness. There is no guarding or rebound. Musculoskeletal: Cervical back: Normal range of motion and neck supple. No rigidity or tenderness. Lymphadenopathy: Cervical: No cervical adenopathy. Skin: General: Skin is warm and dry. Neurological: Mental Status: He is alert and oriented to person, place, and time. ASSESSMENT/PLAN: 1. Sore throat - ICD9: 462, ICD10: J02.9 (primary diagnosis) - suspect viral - Rapid Strep negative in the office today - Discussed supportive care treatment with fluids, rest and analgesia. - STREP A MOLECULAR (POC) 2. Viral URI - ICD9: 465.9, ICD10: J06.9 - Discussed viral etiology and rationale for treatment. - Symptomatic treatment with prn analgesia - Supportive care with fluids and rest Patient will follow up with primary care provider as needed. Patient was instructed to immediately proceed to emergency room for any new, worsening, or symptoms lasting longer than anticipated. The patient's clinical presentation is otherwise unremarkable at this time. Based on exam and clinical finding, the patient is stable for discharge. Plan of care was discussed with patient. Patient verbalizes understanding and agrees to plan of care. This note was generated using Cellfire software. It may contain errors in wording, punctuation, or spelling. Didier Kilgore APRN.[facility] documented in this encounter [facility] 09-21-2022 Note HNO ID: [id number] Author: Iain Lobo PA-C Service: ? Author Type: Physician Tipping Machine Operator Automatic Type: Progress Notes Filed: 09/21/2022 10:31 AM Note Text: This note was created using [employer]. Subjective Annamarie Larios is a 32 year old male. HPI Patient presents with sore throat, cough, over the past 5 days. No fever. He states the sore throat is his worst symptom. No diarrhea or vomiting. His daughter had a cough last week. He went to make sure he did not have strep throat. Review of Systems Constitutional: Negative. HENT: Positive for congestion, rhinorrhea and sore throat. Negative for ear pain and postnasal drip. Respiratory: Positive for cough. Negative for shortness of breath and wheezing. Cardiovascular: Negative. Gastrointestinal: Negative. Genitourinary: Negative. Musculoskeletal: Negative. All other systems reviewed and are negative. PAST MEDICAL HISTORY Diagnosis Date ADHD (attention deficit hyperactivity disorder) Bipolar 1 disorder ([facility]) Eczema Hx MRSA infection IBS (irritable bowel syndrome) Substance abuse ([facility]) Current Outpatient Medications Medication Sig Dispense Refill famotidine (PEPCID) 40 mg tablet Take 40 mg by mouth. EPINEPHrine (EPIPEN 2-KAMILA) 0.3 mg/0.3 mL auto-injector Inject 0.3 mL intramuscularly as needed. (Patient not taking: Reported on 05/15/2022) 2 Each 1 No current facility-administered medications for this visit. No past surgical history on file. No family history on file. Social History Tobacco Use Smoking status: Every Day Smokeless tobacco: Never Objective BP 128/82 Pulse 72 Temp 37.3 ?C (99.2 ?F) (Tympanic) Resp 16 Wt 84 kg (185 lb 3.2 oz) SpO2 97% Physical Exam Vitals reviewed. Constitutional: Appearance: Normal appearance. HENT: Head: Normocephalic and atraumatic. Right Ear: Tympanic membrane, ear canal and external ear normal. Left Ear: Ear canal and external ear normal. Nose: Congestion present. Mouth/Throat: Mouth: Mucous membranes are moist. Pharynx: Oropharynx is clear. Posterior oropharyngeal erythema present. No oropharyngeal exudate. Cardiovascular: Rate and Rhythm: Normal rate and regular rhythm. Heart sounds: Normal heart sounds. Pulmonary: Effort: Pulmonary effort is normal. Breath sounds: Normal breath sounds. Musculoskeletal: Cervical back: Neck supple. Lymphadenopathy: Cervical: No cervical adenopathy. Skin: General: Skin is warm and dry. Neurological: Mental Status: He is alert. Assessment and Plan ASSESSMENT/PLAN: 1. Viral URI - ICD9: 465.9, ICD10: J06.9 - Discussed viral etiology and rationale for treatment. - Alere Strep Test negative, no culture pending - Symptomatic treatment with prn analgesia - Supportive care with fluids and rest - The patient may also use OTC cough and cold meds as needed and warm salt water gargles, throat lozenges and/or OTC throat spray as needed. - Follow up in 3-5 days if symptoms persist or sooner if worsening of symptoms - STREP A MOLECULAR (POC) Iain Lobo PA-C [facility] 09-21-2022 History of Presen t illness Narrative This note was created using [employer]. Subjective Annamarie Larios is a 32 year old male. HPI Patient presents with sore throat, cough, over the past 5 days. No fever. He states the sore throat is his worst symptom. No diarrhea or vomiting. His daughter had a cough last week. He went to make sure he did not have strep throat. Review of Systems Constitutional: Negative. HENT: Positive for congestion, rhinorrhea and sore throat. Negative for ear pain and postnasal drip. Respiratory: Positive for cough. Negative for shortness of breath and wheezing. Cardiovascular: Negative. Gastrointestinal: Negative. Genitourinary: Negative. Musculoskeletal: Negative. All other systems reviewed and are negative. PAST MEDICAL HISTORY Diagnosis Date ADHD (attention deficit hyperactivity disorder) Bipolar 1 disorder ([facility]) Eczema Hx MRSA infection IBS (irritable bowel syndrome) Substance abuse ([facility]) Current Outpatient Medications Medication Sig Dispense Refill famotidine (PEPCID) 40 mg tablet Take 40 mg by mouth. EPINEPHrine (EPIPEN 2-KAMILA) 0.3 mg/0.3 mL auto-injector Inject 0.3 mL intramuscularly as needed. (Patient not taking: Reported on 05/15/2022) 2 Each 1 No current facility-administered medications for this visit. No past surgical history on file. No family history on file. Social History Tobacco Use Smoking status: Every Day Smokeless tobacco: Never Objective BP 128/82 Pulse 72 Temp 37.3 C (99.2 F) (Tympanic) Resp 16 Wt 84 kg (185 lb 3.2 oz) SpO2 97% Physical Exam Vitals reviewed. Constitutional: Appearance: Normal appearance. HENT: Head: Normocephalic and atraumatic. Right Ear: Tympanic membrane, ear canal and external ear normal. Left Ear: Ear canal and external ear normal. Nose: Congestion present. Mouth/Throat: Mouth: Mucous membranes are moist. Pharynx: Oropharynx is clear. Posterior oropharyngeal erythema present. No oropharyngeal exudate. Cardiovascular: Rate and Rhythm: Normal rate and regular rhythm. Heart sounds: Normal heart sounds. Pulmonary: Effort: Pulmonary effort is normal. Breath sounds: Normal breath sounds. Musculoskeletal: Cervical back: Neck supple. Lymphadenopathy: Cervical: No cervical adenopathy. Skin: General: Skin is warm and dry. Neurological: Mental Status: He is alert. Assessment and Plan ASSESSMENT/PLAN: 1. Viral URI - ICD9: 465.9, ICD10: J06.9 - Discussed viral etiology and rationale for treatment. - Alere Strep Test negative, no culture pending - Symptomatic treatment with prn analgesia - Supportive care with fluids and rest - The patient may also use OTC cough and cold meds as needed and warm salt water gargles, throat lozenges and/or OTC throat spray as needed. - Follow up in 3-5 days if symptoms persist or sooner if worsening of symptoms - STREP A MOLECULAR (POC) Iain Lobo PA-C documented in this encounter [facility] 04-29-2022 History of Presen t illness Narrative 04/29/2022 Patient presents with: Fatigue: nausea, bodyaches x 1 week, exposed to strep SUBJECTIVE: This is a 31 year old that is here today for Complaint(s) of fatigue and nausea x 1 week. + nausea, no vomiting. Just feels like stomach is off at times. Patient notes mild sore throat. Daughter positive for strep yesterday. + diminished appetite. Denies fever/chills, SOB, wheezing, cough, nasal congestion, chest pain. + history of acid reflux-not taking anything currently. Last BM, yesterday, normal. PAST MEDICAL HISTORY Diagnosis Date ADHD (attention deficit hyperactivity disorder) Bipolar 1 disorder (HCC) Eczema Hx MRSA infection IBS (irritable bowel syndrome) Substance abuse ([facility]) ALLERGIES Cephlasporins [Cephalosporins] and Penicillins MEDICATIONS Current Outpatient Medications Medication Sig EPINEPHrine (EPIPEN 2-KAMILA) 0.3 mg/0.3 mL auto-injector Inject 0.3 mL intramuscularly as needed. No current facility-administered medications for this visit. SOCIAL HISTORY Social History Tobacco Use Smoking status: Every Day Smokeless tobacco: Never REVIEW OF SYSTEMS See HPI OBJECTIVE: BP 124/72 Pulse 84 Temp 37.1 C (98.7 F) Resp 16 Wt 76.2 kg (168 lb) SpO2 99% APPEARANCE Well appearing, alert, in no acute distress, well-hydrated, well nourished. EYES PERRLA, conjunctiva and sclera normal. EARS External ears normal, canals clear. TMS normal NAYE NOSE/SINUS Nares normal. Septum midline. Mucosa normal. No drainage or sinus tenderness. THROAT normal, no erythema NECK Supple, no adenopathy; HEART RRR with normal S1 and S2 LUNG clear to auscultation, No wheezing, rhonchi, rales. ABDOMEN soft, non-tender. No rebound, rigidity or guarding. Negative McBurney's, Rovsing's, Mata's. ASSESSMENT/PLAN: 1. Nausea - ICD9: 787.02, ICD10: R11.0 Supportive care with fluids and rest Start zantac Strep negative F/u in 3-5 days if not improving, sooner if worsening - STREP A MOLECULAR (POC) The patient indicates understanding of these issues and agrees with the plan. Reviewed red flags and when to seek care sooner. Dora Sexton PA-C documented in this encounter [facility] 02-05-2022 History of Presen t illness Narrative Images from the original note were not included. Subjective HPI HPI Annamarie Larios is a 31 year old male who presents today for CC of itchy rash. This started 10 days ago. Has tried atb ointment without relief. Symptoms are worsened after feet wet at work. Risk factors possible bug bites on feet. .Patient presents with: Rash: On R foot x10 days, recent staph infection finished bactrim PAST MEDICAL HISTORY Diagnosis Date ADHD (attention deficit hyperactivity disorder) Bipolar 1 disorder (HCC) Eczema Hx MRSA infection IBS (irritable bowel syndrome) Substance abuse ([facility]) No past surgical history on file. ALLERGIES Cephlasporins [Cephalosporins] and Penicillins MEDICATIONS terbinafine HCl (LAMISIL) 1 % cream Apply to affected area twice daily for 14 days. hydrocortisone 1 % cream Apply to affected area three times daily for 14 days. EPINEPHrine (EPIPEN 2-KAMILA) 0.3 mg/0.3 mL auto-injector Inject 0.3 mL intramuscularly as needed. No family history on file. Social History Tobacco Use Smoking status: Every Day Smokeless tobacco: Never ROS Objective Blood pressure 128/86, pulse 74, temperature 36.9 C (98.4 F), resp. rate 20, weight 75.3 kg (166 lb), SpO2 99 %. Physical Exam Constitutional: General: He is not in acute distress. Appearance: He is not toxic-appearing or diaphoretic. HENT: Head: Normocephalic and atraumatic. Pulmonary: Effort: Pulmonary effort is normal. No accessory muscle usage or respiratory distress. Musculoskeletal: Feet: Neurological: Mental Status: He is alert and oriented to person, place, and time. ASSESSMENT/PLAN: 1. Rash - ICD9: 782.1, ICD10: R21 Suspected tinea -use medication as prescribed -follow up if symptoms persist, worsen, change - TERBINAFINE HCL 1 % TOPICAL CREAM - HYDROCORTISONE 1 % TOPICAL CREAM Agrees to plan Jj Barry APRN.LITHOGRAPHIC ETCHER documented in this encounter [facility] Evaluation note Diagnosis COVID-19 documented in this encounter [facility] Work Phone: Evaluation noteNo assessment information available [facility] Work Phone: Evaluation note* Diagnosis Rash- Primary Rash and other nonspecific skin eruption [facility] Diagnosis Nausea- Primary Nausea alone [facility] Diagnosis Viral URI- Primary Acute upper respiratory infections of unspecified site [facility] Diagnosis Sore throat- Primary Acute pharyngitis Viral URI Acute upper respiratory infections of unspecified site [facility] Diagnosis Mass of soft tissue of face- Primary Other specified soft tissue disorders [facility] Diagnosis Annual physical exam- Primary Routine general medical examination at a health care facility Need for hepatitis C screening test Special screening examination for other specified viral diseases Screening for HIV (human immunodeficiency virus) Special screening examination for other specified viral diseases Screening for lipid disorders Other specified soft tissue disorders documented [facility]* Diagnosis Mixed hyperlipidemia- Primary Other specified soft tissue disorders [facility] Diagnosis Mass of soft tissue of face- Primary Other specified soft tissue disorders documented in this encounter [facility]* Diagnosis Mixed hyperlipidemia- Primary documented in this encounter [facility] note* Diagnosis Strep throat- Primary Streptococcal sore throat documented in this encounter [facility] note* Diagnosis Annual physical exam- Primary Routine general medical examination at a health care facility Abdominal bloating Flatulence, eructation, and gas pain Gastroesophageal reflux disease without esophagitis Esophageal reflux Screening for diabetes mellitus Screening for lipid disorders Fatigue, unspecified type Nausea without vomiting Asplenia after surgical procedure Pharyngitis due to Streptococcus species- Primary Tooth abscess- Primary Periapical abscess without sinus Facial mass Depression, unspecified depression type- Primary documented in this encounter [facility] Discharge instructions Additional Instructions Follow-up with your PCP and return for any worsening of your symptoms.[facility] Work Phone: Summary Purpose Family History No Family History Records FoundNo Family History Records FoundNo Family History Records FoundNo Family History Records FoundNo Family History Records Found Advance Directives No Advanced Directives Records FoundDocuments on File Type Date Recorded 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 ACP-Advance Directive ACP-Power of Regional Business Development Manager Advance Directive Response Recorded Date/ Time Living Will No January 19, 2022 4:45pm Power of Regional Business Development Manager No January 19 4:45pm Advance Directive Response Recorded Date/ Time Living Will No April 19 6:31pm Power of Regional Business Development Manager No April 19, 2023 6:31pm Latest Code Status on File Code Status Date Activated Date Inactivated Comments Full Code 05/20/2023 9:02 AM 05/20/2023 3:03 PM Latest Code Status on File Code Status Date Activated Date Inactivated Comments Full Code 05/20/2023 9:02 AM 05/20/2023 3:03 PM Date Activated Date Inactivated Comments 05/20/2023 9:02 AM 05/20/2023 3:03 PM Chief Complaint and Reason for Visit Chief Complaint RASH Chief Complaint allegic Additional Source Comments (unrecognized sect ion and content) No Status Records FoundNo Status Records FoundNo Status Records FoundNo Status Records FoundNo Status Records Found INFORMATION SOURCE (unrecogn ized section and content) DATE CREATED AUTHOR 02/22/2019 [facility] DATE CREATED AUTHOR AUTHOR'S ORGANIZ ATION 06/15/2021 [facility] DATE CREATED AUTHOR AUTHOR'S ORGANIZ ATION 01/29/2022 [facility] DATE CREATED AUTHOR AUTHOR'S ORGANIZ ATION 08/15/2023 [facility] DATE CREATED AUTHOR AUTHOR'S ORGANIZ ATION 08/06/2024 [facility] Teams (unrecognized sec tion and content) Fine Artist Relationship Specialty Start Date End Date Nikita Sorensen MD [address] [place] [address] PCP - General Family Medicine 06/05/15 Fine Artist Relationship Specialty Start Date End Date Nikita Sorensen [address] [place] [address] PCP - General Family Practice 01/29/12 Fine Artist Relationship Specialty Start Date End Date Nikita Sorensen [address] [place] [address] PCP - General Family Medicine 01/29/12 Fine Artist Relationship Specialty Start Date End Date Nikita Sorensen [address] [place] [address] PCP - General Family Medicine 01/29/12 Fine Artist Relationship Specialty Start Date End Date Nikita Sorensen [address] [place] [address] PCP - General Family Medicine 01/29/12 Fine Artist Relationship Specialty Start Date End Date Nikita Sorensen MD [address] [place] [address] PCP - General 06/05/15 Team Status: Active Member Role Status Dates Dr. Nikita Sorensen MD Family Provider Active Dr. Nikita Sorensen MD Primary Care Provider Active Team Status: Inactive Member Role Status Dates Dr. Nikita Sorensen MD Primary Care Provider Active Jero Mancia MD Emergency Provider Active Fine Artist Relationship Specialty Start Date End Date Nik[facility] S[facility] [address] [facility] [place] [address] PCP - General 06/05/15 Fine Artist Relationship Specialty Start Date End Date Nikita Sorensen MD [address] [facility] [place] [address] PCP - General 06/05/15 Fine Artist Relationship Specialty Start Date End Date Nikita Sorensen MD [address] [facility] [place] [address] PCP - General 06/05/15 Fine Artist Relationship Specialty Start Date End Date Nikita Sorensen MD [address] [facility] [place] [address] PCP - General 06/05/15 Fine Artist Relationship Specialty Start Date End Date Nikita Sorensen MD [address] [facility] [place] [address] PCP - General 06/05/15 Fine Artist Relationship Specialty Start Date End Date Nikita Sorensen MD [address] [facility] [place] [address] PCP - General 06/05/15 Fine Artist Relationship Specialty Start Date End Date Nikita Sorensen MD [address] [facility] [place] [address] PCP - General 06/05/15 Fine Artist Relationship Specialty Start Date End Date Nikita Sorensen MD [address] [facility] [place] [address] PCP - General 06/05/15 Fine Artist Relationship Specialty Start Date End Date Nikita Sorensen MD [address] [place] [address] PCP - General 06/05/15 Fine Artist Relationship Specialty Start Date End Date Nikita Sorensen [address] [place] [address] PCP - General Family Medicine 01/29/12 Fine Artist Relationship Specialty Start Date End Date Nikita Sorensen MD [address] [place] [address] PCP - General 06/05/15 Goals (unrecognized section and content) Goals may be documented in a n alternate sectionGoals may be documented in an alternate section Source Comments (unrecognize d section and content) In the event this informatio n is protected by the Federal Confidentiality of Alcohol and Drug Abuse Patient Records regulations: The Federal rules restrict any use of the information to criminally investigate or prosecute any alcohol or drug abuse patient.[facility] the event this information is protected by the Federal Confidentiality of Alcohol and Drug Abuse Patient Records regulations: The Federal rules restrict any use of the information to criminally investigate or prosecute any alcohol or drug abuse patient.[facility] the event this information is protected by the Federal Confidentiality of Alcohol and Drug Abuse Patient Records regulations: The Federal rules restrict any use of the information to criminally investigate or prosecute any alcohol or drug abuse patient.[facility] the event this information is protected by the Federal Confidentiality of Alcohol and Drug Abuse Patient Records regulations: The Federal rules restrict any use of the information to criminally investigate or prosecute any alcohol or drug abuse patient.[facility] the event this information is protected by the Federal Confidentiality of Alcohol and Drug Abuse Patient Records regulations: The Federal rules restrict any use of the information to criminally investigate or prosecute any alcohol or drug abuse patient.[facility] Reason for Visit (unrecogniz ed section and content) Reason Comments Rash On R foot x10 days, recent staph infection finished bactrim Reason Comments Fatigue nausea, bodyaches x 1 week, exposed to strep Reason Comments Sore Throat ST, MENDOZA, fatigue and cough x 5 days Reason Comments Sore Throat Cough, MENDOZA, body ache s started this morning Reason Onset Date Comments Dental Pain 10/24/2022 Reason Comments Med Refill Reason Onset Date Comments Release of Information 04/25/2023 Reason Comments New Patient Reason Comments Annual Exam Health Maintenance HIV Screening-agrees COVID-19 Vaccine-noneDTaP/Tdap/Td Vaccines-states he had one in 2015Varicella Vaccines-had chicken pox as a childHepatitis C Screening-agreesHepatitis B Vaccines-declinesMeningococcal Vaccine-declinesInfluenza Vaccine-declines Blood Work Reason Onset Date Comments Results 05/02/2023 Reason Onset Date Comments Surgery Scheduling 04/30/2023 [facility] Specialty Diagnoses / Procedures Referred By Contac t Referred To Contact Diagnoses Other specified soft tissue disorders 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] Procedures MI EXC B9 LES MRGN XCP SK TG F/E/E/N/L/M 1.1-2.0CM MI REPAIR INTERMEDIATE F/E/E/N/L&/MUC 2.5 CM/< MI REPAIR COMPLEX F/C/C/M/N/AX/G/H/F 1.1-2.5 CM EXCISION OF SOFT TISSUE MASS OF THE RIGHT FOREHEAD WITH IMMEDIATE VERSUS COMPLEX CLOSURE REPAIR INTERMEDIATE WOUNDS OF FACE EARS EYELIDS NOSE LIPS MUCOUS MEMBRANES 2.5 CM OR LESS REPAIR COMPLEX WOUND OF FOREHEAD CHEEK CHIN MOUTH NECK AXILLAE GENITALIA HANDS FEET 1.1 TO 2.5 CM Nasrin Jaffe MD [address] [place] [address] [facility] [address] [place] [address] Referral ID Status Reason Start Date Expiration Date Visits Re quested Visits Authorized [id number] 1 1 Reason Comments Fever chills, cough and trina dyaches, exposed to strep Reason Comments Suicidal Patient was sent fro [facility] for medical clearance. Patient is depressed. Patient denies SI to RN. Patient told PES that he is SI. Scheduled Active and Recently Administ ered Medications (unrecognized section and content) Medication Order 05/18/2023 05/19/2023 05/20/2023 acetaminophen (Tylenol) tablet 1,000 mg (COMPLETED) 1,000 mg, Oral, Once, On Fri05/20/23 at 0915, For 1 dose, Preprocedure, Maximum dose of acetaminophen is 4000 mg from all sources in 24 hours. Do not administer if patient has taken tylenol <4 hours earlier. Do not give if contraindicated ie. patient has active liver disease or cirrhosis. 0916 (Given - Provid er: Sophia Herrera RN) famotidine (Pepcid) tablet 20 mg (COMPLETED) 20 mg, Oral, Once, On Fri05/20/23 at 0915, For 1 dose, Preprocedure 0916 (Given - Provid er: Sophia Herrera RN) gabapentin (Neurontin) capsule 100 mg (COMPLETED) 100 mg, Oral, Once, On Fri05/20/23 at 0915, For 1 dose, Preprocedure, For Age >69 or Low GFR. 0916 (Given - Provid er: Sophia Herrera RN) sodium chloride 0.9% (NS) flush 10 mL 10 mL, IntraVENous, Every 12 hours scheduled (2 times per day), First dose on Fri05/20/23 at 0915, Preprocedure 0915 (Canceled Entry - Provider: Automatic Discharge Provider - Comment: Automatically canceled at discontinue of medication order) sodium chloride 0.9% (NS) flush 10 mL 10 mL, IntraVENous, Every 12 hours scheduled (2 times per day), First dose on Fri05/20/23 at 2100, Recovery (only) sodium chloride 0.9% (NS) flush 5-40 mL 5-40 mL, IntraVENous, Every 12 hours, First dose on Fri05/20/23 at 0915, Preprocedure, For Line Patency: Peripheral IV = 5 mL; Midline or Central Line = 10 mL/lumen. If following IV push medication, administer flush at same rate as the IV push. Flush volume is determined by type of infusion therapy being given. For non-viscous solutions use: Peripheral IV = 5 mL Midline or Central Line = 10 mL/lumen For viscous solutions (i.e. blood components, parenteral nutrition, contrast media, or after obtaining blood sample) use: Peripheral IV = 10 mL Midline or Central Line = 20 mL/lumen 0915 (Canceled Entry - Provider: Automatic Discharge Provider - Comment: Automatically canceled at discontinue of medication order) Continuous Medication Order 05/18/2023 05/19/2023 05/20/2023 lactated Ringer's (LR) infusion 50 mL/hr, IntraVENous, Continuous, Starting on Fri05/20/23 at 0915, Preprocedure, Upon admission to sameday - please start iv if patient does not have iv access. Use 500ml NS for patients on dialysis. 0917 (New Bag - Prov ider: Sophia Herrera RN)1137 (Continued by Anesthesia - Provider: Marco A Contreras CRNA)1138 (Rate/Dose Change - Provider: Marco A Contreras CRNA)1213 (Stopped - Provider: Marco A Contreras CRNA) lactated ringers infusion 125 mL/hr, IntraVENous, Continuous, Starting on Fri05/20/23 at 1230, Recovery (only) 1230 (Canceled Entry - Provider: Automatic Discharge Provider - Comment: Automatically canceled at discontinue of medication order) PRN Medication Order 05/18/2023 05/19/2023 05/20/2023 ALPRAZolam (Xanax) disintegrating tablet 0.25 mg 0.25 mg, Oral, PRN, anxiety, Starting on Fri05/20/23 at 0902, For 1 dose, Preprocedure, Using dry hands, place tablet on top of tongue and allow to disintegrate. Administration with water is not necessary. bupivacaine-EPINEPHrine PF (Marcaine w/EPI) 0.25% -1:[id number] injection (CANCELED) As needed, Starting on Fri05/20/23 at 1150, Intraprocedure 1150 (Given - Provid er: Nasrin Jaffe MD) diphenhydrAMINE (BENADryl) injection 12.5 mg 12.5 mg, IntraVENous, Once PRN, itching, Starting on Fri05/20/23 at 1222, For 1 dose, Recovery (only) fentaNYL (Sublimaze) injection 25 mcg 25 mcg, IntraVENous, Every 5 min PRN, moderate pain (4-6), Starting on Fri05/20/23 at 1222, For 3 doses, Recovery (only), Phase I and Phase II- Initial therapy for moderate pain (4-6). Restricted to a 90 minute time frame starting when the patient can verbally state their pain score. If after 2 doses the pain score does not decrease by more than one point, then call the provider. If oral meds are utilized, do not return to initial therapy medications. fentaNYL (Sublimaze) injection 50 mcg 50 mcg, IntraVENous, Every 5 min PRN, severe pain (7-10), Starting on Fri05/20/23 at 1222, For 3 doses, Recovery (only), Phase I and Phase II- Initial therapy for severe pain (7-10). Restricted to a 90 minute time frame starting when the patient can verbally state their pain score. If after 2 doses the pain score does not decrease by more than one point, then call the provider. If oral meds are utilized, do not return to initial therapy medications. hydrALAZINE (Apresoline) injection 5 mg(Linked Group 1) 5 mg, IntraVENous, Every 15 min PRN, high blood pressure, for SBP greater than 160 mmHg for 2 consecutive measurements taken from different sites, Starting on Fri05/20/23 at 1222, For 2 doses, Recovery (only), PRN for SBP > 160 for 2 consecutive measurements, and if one of the following conditions is met: 1) If IV labetolol is ineffective. 2) If HR is under 60. 3) If patient has heart block, COPD or asthma. If both labetalol and hydralazine ineffective, notify anesthesia provider. labetalol (Normodyne,Trandate) injection 5 mg(Linked Group 1) 5 mg, IntraVENous, Every 10 min PRN, high blood pressure, for SBP greater than 160 mmHg for 2 consecutive measurements taken from different sites., Starting on Fri05/20/23 at 1222, For 2 doses, Recovery (only), PRN for SBP >160 for 2 consecutive measurements, if HR is 60 or greater. If beta susan is contraindicated (HR less than 60, heart block, COPD or asthma) use hydralazine IV order. meperidine (Demerol) injection 12.5 mg 12.5 mg, IntraVENous, Every 5 min PRN, shivering, Starting on Fri05/20/23 at 1222, For 4 doses, Recovery (only), May give every 5 minutes to max of 50mg. ondansetron (Zofran) injection 4 mg 4 mg, IntraVENous, Once PRN, nausea, Starting on Fri05/20/23 at 1222, For 1 dose, Recovery (only), Initial antiemetic therapy. oxyCODONE (Roxicodone) immediate release tablet 10 mg(Linked Group 2) 10 mg, Oral, PRN, severe pain (7-10), Starting on Fri05/20/23 at 1222, For 1 dose, Recovery (only), PHASE II oxyCODONE (Roxicodone) immediate release tablet 5 mg(Linked Group 2) 5 mg, Oral, PRN, moderate pain (4-6), Starting on Fri05/20/23 at 1222, For 1 dose, Recovery (only), PHASE II sodium chloride 0.9 % bolus 500 mL 500 mL, IntraVENous, at 1,000 mL/hr, Administer over 0.5 Hours, PRN, Anti-nausea, Starting on Fri05/20/23 at 1222, Recovery (only), Indications: Anti-nausea sodium chloride 0.9 % infusion 5-250 mL/hr, IntraVENous, PRN, if patient receiving piggyback infusions and maintenance fluids are not ordered OR KVO fluids to protect IV site / prevent frequent line interruptions / long duration, Starting on Fri05/20/23 at 0902, Preprocedure, For piggyback infusion, administer at same rate as piggyback for a total of 25 mL. Enter 25 mL into dose field and piggyback rate into rate field of order. If piggyback is infusing at a rate less than 100 mL/hr, enter 25 mL into dose field and 100 mL/hr into rate field of order. For KVO fluids, enter rate of 20 mL/hr or less into rate field of order. sodium chloride 0.9 % infusion 5-250 mL/hr, IntraVENous, PRN, if patient receiving piggyback infusions and maintenance fluids are not ordered OR KVO fluids to protect IV site / prevent frequent line interruptions/ long duration, Starting on Fri05/20/23 at 0902, Preprocedure, For piggyback infusion, administer at same rate as piggyback for a total of 25 mL. Enter 25 mL into dose field and piggyback rate into rate field of order. If piggyback is infusing at a rate less than 100 mL/hr, enter 25 mL into dose field and 100 mL/hr into rate field of order. For KVO fluids, enter rate of 20 mL/hr or less into rate field of order. sodium chloride 0.9 % infusion 5-250 mL/hr, IntraVENous, PRN, if patient receiving piggyback infusions and maintenance fluids are not ordered OR KVO fluids to protect IV site / prevent frequent line interruptions/ long duration, Starting on Fri05/20/23 at 1222, Recovery (only), For piggyback infusion, administer at same rate as piggyback for a total of 25 mL. Enter 25 mL into dose field and piggyback rate into rate field of order. If piggyback is infusing at a rate less than 100 mL/hr, enter 25 mL into dose field and 100 mL/hr into rate field of order. For KVO fluids, enter rate of 20 mL/hr or less into rate field of order. sodium chloride 0.9 % irrigation solution (CANCELED) As needed, Starting on Fri05/20/23 at 1149, Intraprocedure 1149 (Given - Provid er: Nasrin Jaffe MD) sodium chloride 0.9% (NS) flush 10 mL 10 mL, IntraVENous, PRN, line care, Starting on Fri05/20/23 at 0902, Preprocedure, After every IV line use sodium chloride 0.9% (NS) flush 10 mL 10 mL, IntraVENous, PRN, line care, Starting on Fri05/20/23 at 1222, Recovery (only), After every IV line use sodium chloride 0.9% (NS) flush 5-40 mL 5-40 mL, IntraVENous, PRN, line care, After every IV line use, Starting on Fri05/20/23 at 0902, Preprocedure, For Line Patency: Peripheral IV = 5 mL; Midline or Central Line = 10 mL/lumen. If following IV push medication, administer flush at same rate as the IV push. Flush volume is determined by type of infusion therapy being given. For non-viscous solutions use: Peripheral IV = 5 mL Midline or Central Line = 10 mL/lumen For viscous solutions (i.e. blood components, parenteral nutrition, contrast media, or after obtaining blood sample) use: Peripheral IV = 10 mL Midline or Central Line = 20 mL/lumen Linked Groups Order Group 1: labetalol (Normodyne,Trandate) injection 5 mgJump to med 5 mg, IntraVENous, Every 10 min PRN, high blood pressure, for SBP greater than 160 mmHg for 2 consecutive measurements taken from different sites., Starting on Fri05/20/23 at 1222, For 2 doses, Recovery (only), PRN for SBP >160 for 2 consecutive measurements, if HR is 60 or greater. If beta susan is contraindicated (HR less than 60, heart block, COPD or asthma) use hydralazine IV order. Or hydrALAZINE (Apresoline) injection 5 mgJump to med 5 mg, IntraVENous, Every 15 min PRN, high blood pressure, for SBP greater than 160 mmHg for 2 consecutive measurements taken from different sites, Starting on Fri05/20/23 at 1222, For 2 doses, Recovery (only), PRN for SBP > 160 for 2 consecutive measurements, and if one of the following conditions is met: 1) If IV labetolol is ineffective. 2) If HR is under 60. 3) If patient has heart block, COPD or asthma. If both labetalol and hydralazine ineffective, notify anesthesia provider. Group 2: oxyCODONE (Roxicodone) immediate release tablet 5 mgJump to med 5 mg, Oral, PRN, moderate pain (4-6), Starting on Fri05/20/23 at 1222, For 1 dose, Recovery (only), PHASE II Or oxyCODONE (Roxicodone) immediate release tablet 10 mgJump to med 10 mg, Oral, PRN, severe pain (7-10), Starting on Fri05/20/23 at 1222, For 1 dose, Recovery (only), PHASE II FOR RECORDS PERTAINING TO PATIENTS WHO ARE OR HAVE BEEN ENROLLED IN A CHEMICAL DEPENDENCY/SUBSTANCEABUSE PROGRAM, SOME INFORMATION MAY BE OMITTED. This clinical summary was aggregated from multiple sources. Caution should be exercised in using it in the provision of clinical care. This summary normalizes information from multiple sources, and as a consequence, information in this document may materially change the coding, format and clinical context of patient data. In addition, data may be omitted in some cases. CLINICAL DECISIONS SHOULD BE BASED ON THE PRIMARY CLINICAL RECORDS. [facility]. provides no warranty or guarantee of the accuracy or completeness of information in this document.
--- NOTE | 2025-02-13 15:21 | EDS_ITS ---
HPI History of Present Illness Chief Complaint: Eye Problem Informant: patient and parent Onset/Context/Timing Location: Right Eye Onset: Today Context: Sudden Onset Timing: Continuous Worsened by: Nothing Relieved by: Nothing Associated Symptoms Associated Symptoms - Eyes: Redness; Negative for Burning, Crusting, Drainage, Eyelid swelling, Foreign body sensation, Matting or Pain History of injury: No Visual correction: Corrective contact lenses Narrative Narrative: Patient presents with right eye redness that began today. Patient states he woke up with it. Patient denies any trauma or injury. Patient denies any coughing or sneezing. Patient denies any changes in his vision. Patient denies any foreign body sensation. Patient does wear contact lenses. Patient states nothing makes it better and nothing makes it worse. Patient does not take any anticoagulants. [facility] Medical History (Updated 02/13/25 @ 18:[address] Deep Holman DO) Depression Anxiety COVID-19 Home Medications ?Medication ?Instructions ?Recorded ?Last Taken ?Type fluoxetine 20 mg capsule 20 mg PO DAILY 02/13/25 Unkn own History olanzapine 20 mg tablet 20 mg PO QHS 02/13/25 Unknow n History Allergy/AdvReac Type Severity Reaction Status Date / Time Cephalosporins Allergy Hives Verified 02/13/25 14:36 Penicillins Allergy Hives Verified 02/13/25 14:36 Surgical History (Updated 02/13/25 @ 15:[address] Deep Holman DO) Hx of tympanostomy tubes History of adenectomy Hx of tonsillectomy Hx of splenectomy Social History Smoking Status: Former smoker substance use type: former substance user ROS ROS ED Constitutional Constitutional ED: Denies chills or fever(s) Eyes Eyes: Denies blurry vision or change in vision ENT ENT ED: Denies rhinorrhea or sore throat Cardiovascular Cardiovascular: Denies chest pain or palpitations Respiratory/Chest Respiratory/Chest: Denies cough or dyspnea Gastrointestinal Gastrointestinal: Denies nausea or vomiting Genitourinary Genitourinary ED: Denies dysuria or hematuria Musculoskeletal Musculoskeletal: Denies back pain or neck pain Integumentary Denies abscess or rash Neurologic Neurologic: Denies headache(s) or weakness Psychiatric Psychiatric: Reports depression Allergic/Immunologic Allergic/Immunologic ED: Denies mouth swelling or urticaria EXAM Physical Exam Const Vital Signs: 02/13/25 14:36 02/13/25 14:36 Temperature 97 F L Temperature Source Temporal Pulse Rate 113 H 118 H Respiratory Rate 18 16 Blood Pressure 163/113 H 169/110 H Blood Pressure Mean 129 129 Pulse Ox 98 98 Oxygen Delivery Method Room Air Room Air Positive well nourished and well developed General Appearance ED: well developed and NAD HEENT atraumatic Eyes Eyes Narrative: Pupils are equal, round, and reactive to light bilaterally. Extraocular muscles are intact. There is a subtle conjunctival hemorrhage on the medial aspect of the right sclera. There is also a small subconjunctival hemorrhage over the superior lateral aspect of the right sclera. Anterior chamber was clear. There is no hyphema. There is no subconjunctival hemorrhages on the left eye. Neck supple and no JVD Resp normal respiratory effort and clear to auscultation bilaterally Cardio regular rate and regular rhythm GI non-tender and non-distended Palpation: soft Neuro oriented x3, CN's II-XII intact bilaterally and moves all extremities Sensorium / Orientation: alert Motor Exam: strength 5/5 throughout Psych Mood & Affect: depressed MDM MDM MDM Narrative Medical decision making narrative: Patient was advised that this is a subconjunctival hemorrhage. Patient and mother were advised that there is no emergency treatment necessary for this. Mother states patient has been getting more depressed recently over his grandmother's . Patient denies any suicidal or homicidal ideations. However, mother wants blood work to be drawn and to be assessed for possible psychiatric placement. Mother states patient has not been eating much over the last week. Mother is concerned the patient may be dehydrated from not eating or drinking much. Because of this, CBC will be obtained to assess for leukocytosis and anemia. Comprehensive metabolic profile will be obtained to assess for hepatic function, renal function, and electrolyte abnormality. Serum alcohol level will be obtained to assess for alcohol intoxication. Urine drug screen will be obtained to assess for substance abuse. Management Discussion w/another healthcare provider: Hospitalist and structural steel trades worker/Case management Treatment and Re-Evaluation Narrative: Patient was evaluated by social work therapist. Patient is not having any suicidal homicidal ideations. Patient is requesting detox admission for withdrawal from alcohol. Case was discussed with hospitalist. She will admit the patient to her service for alcohol detox. Patient and family understood and were agreeable with the plan. All questions were answered. Discharge Plan Triage Chief Complaint: Eye Problem ED Provider: Deep Holman Dx/Rx/DC Orders Clinical Impression: Alcohol withdrawal, Desire for detoxification, Subconjunctival hemorrhage of right eye Prescriptions: No Action fluoxetine 20 mg capsule 20 mg PO DAILY olanzapine 20 mg tablet 20 mg PO QHS Primary Care Provider: Nikita Medina Referrals: Nikita Medina MD [Primary Care Provider] - Print Language: German Disposition Disposition: Acute Care Hospital [facility]
[2025-02-13 15:40] LABS: Hematocrit 46.6 % (40-54); Hemoglobin 16.2 g/dL (13.0-16.5); Immature Granulocytes Count 0.050 X10^3/uL (0.0-0.0); Mean Corp Hgb Conc 34.8 g/dL (32-36); Mean Corpuscular Volume 84.3 fL (80-94); Mean Platelet Vol. 10.1 fl (6.2-12.0); NRBC Flagged by Analyzer 0 % (0-5); Platelet Count 354 K/mm3 (150-450); RBC Distribution Width CV 15.1 % (11.6-14.6); RBC Distribution Width SD 46.5 fl (35.1-43.9); Red Blood Count 5.53 M/mm3 (4.6-6.2); White Blood Count 12.5 K/mm3 (4.4-11.0)
[2025-02-13 16:04] LABS: AST(SGOT) 227 U/L (<=37); Alanine Aminotransfer ALT/SGPT 188 U/L (<=46); Albumin, Serum 4.4 g/dL (3.5-5.0); Alkaline Phosphatase 91 U/L (40-129); Anion Gap 24 (5-15); BUN 12 mg/dL (4-19); BUN/Creat Ratio 12.4 RATIO (10-20); Calcium,Total 8.8 mg/dL (7.6-11.0); Carbon Dioxide 21.8 mmol/L (21.0-32.0); Chloride 92 mmol/L (98-108); Estimated Creatinine Clearance 115.98 ml/min (50-250); Globulin 3.5 g/dL (2.2-4.2); Glucose 92 mg/dL (70-99); Potassium 3.7 mmol/L (3.3-5.1)
[2025-02-13 16:26] LABS: Alcohol, Blood (Medical)-Serum 321.0 mg/dL (<=10.0)
[2025-02-13 17:05] VITALS: BP 175/106; PULSE 114; RESP 22; O2SAT 94
[2025-02-13 17:21] VITALS: BP 171/95; PULSE 113; RESP 18; O2SAT 96
--- NOTE | 2025-02-13 17:46 | CM.ED ---
Social Work Date of referral: 02/13/25 Reason for referral: Mental Health Referred by: Deep Holman Patient provided consent to social work visit. Present was patient's father and step-mother. Patient asked that his family remain in the room during the visit. Patient also had a recent psychotic break and was placed at [facility] in July of this year. Patient tearful, stated he just relapsed last month after being terminated from his job of 8 years which patient had referred to as his career. Patient had been sober for over 10 years. Patient stated he was fired due to his depression and needing to be given a list of things he had to do each day instead of being autonomous which eventually became problematic for patient's employer. Patient stated getting terminated from his place of employment left him feeling as if he's going through an identity crisis and loss of purpose. 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 Patient stated he didn't know how to cope and started drinking again. Patient's grandmother whom patient referred to as yokasta last . Patient has not been wanting to get out of bed because patient stated that sleeping has been helping except patient never wants to get out of bed. Patient started to isolate. Patient denied any current suicidal or homicidal ideation. Patient stated I have zero thoughts of wanting to . I want to live. Patient stated his interest is in going through the [facility] program so he can safely detox from alcohol. Patient currently lives alone with his 10-year-old daughter whom patient has had custody of since she was 5 years old. Patient's daughter is currently being cared for by patient's mother. Patient is currently connected to [facility] where patient sees Rosa M, his mental health therapist. Patient also has a Psychiatric Nurse Practitioner in [place] (Marianna Castrejon)however patient loses his insurance on the first of next month. Bulk Tank Car Unloader advised patient and patient's family to request a caser up through [facility] who can help patient apply for Medicaid. Patient and patient's family all agreed that patient will seek additional help should symptoms persist or worsen. Crisis numbers/community supports reviewed with patient. ED physician also agreeable for [facility] admission. Due to denial of any suicidal ideation, psychiatric assessment not needed. Patient feels safe and has a strong support system who checks on patient daily. Mouna Bello, PARER, GRAVITY METER OBSERVER
[2025-02-13 17:49] LABS: Barbiturate Urine NEGATIVE (< 200 ng/mL); Benzodiazepine Urine NEGATIVE (< 200 ng/mL); PCP Urine NEGATIVE (< 25 ng/mL); THC Urine PRESUMPTIVE POSITIVE (< 50 ng/mL)
[2025-02-13 18:00] VITALS: BP 165/74; PULSE 102; RESP 20; TEMP 37.2; O2SAT 100
--- NOTE | 2025-02-13 18:48 | HP.PCM.HOS_ITS ---
HPI - General General Date of Admission: 02/13/25 Date of Service: 02/13/25 Chief Complaint: Right eye redness and alcohol use HPI Narrative ANNAMARIE JOHN, is a 34 M with a history of depression, chewing tobacco use, remote history of alcohol use presented [facility] ED 02/13/2025 initially reporting some redness on his sclera when he woke up but when he got here family also reported they thought he was depressed and asked if labs could be obtained for further workup, patient was tachycardic with heart rate of 114, blood pressure 175/106, respiratory rate 22 and pulse ox 94% on room air, patient afebrile. Lab workup with white blood cell count 12.5, hemoglobin 16.2, reported anion gap of 24 however unclear how accurate this is as bicarb is within normal limits, BUN of 12 and creatinine 0.98. AST 227 ALT 888. UDS positive for cannabinoids and alcohol level at 3 PM found to be 321. This was discussed with patient who then reported significant alcohol drinking over the past month and was agreeable to come in for detox. Hospitalist contacted for admission. Patient evaluated with family at bedside, reportedly he lost his job a month ago and has been drinking pretty heavily since then roughly a 12 pack of white claw a day and has to drink from the time he wakes up to help with withdrawal symptoms. His grandmother recently which further escalated his drinking and also reports he has not been eating food or drinking water and last ate a meal on when his grandmother's was. Reports having tubes in his ears multiple times so sometimes his right ear pops but currently having no hearing difficulties, has the redness around the eye but no pain. Did remark that he has been wearing the same contacts for months and never takes them out even when he sleeps and has no other contacts and no glasses so he just does not take them out. [facility] Medical History (Updated 02/13/25 @ 18:[address] Deep Holman, DO) Anxiety COVID-19 Depression Home Medications ?Medication ?Instructions ?Recorded ?Last Taken ?Type fluoxetine 20 mg capsule 20 mg PO DAILY 02/13/25 Unkn own History olanzapine 20 mg tablet 20 mg PO QHS 02/13/25 Unknow n History Allergy/AdvReac Type Severity Reaction Status Date / Time Cephalosporins Allergy Hives Verified 02/13/25 14:36 Penicillins Allergy Hives Verified 02/13/25 14:36 Surgical History (Updated 02/13/25 @ 15:[address] Deep Holman DO) History of adenectomy Hx of splenectomy Hx of tonsillectomy Hx of tympanostomy tubes Social History Smoking Status: Former smoker substance use type: former substance user ROS ROS Narrative General: Denies fever/chills HENT: Denies headache, denies stuffy nose, denies sore throat EYES: Denies changes in vision, does have some redness of right eye Resp: Denies cough, denies shortness of breath Cardiac: Denies chest pain GI: Denies abdominal pain, denies changes in bowel, denies nausea/vomiting : Denies changes in urination Extremity: Denies swelling MSK: Denies weakness Neuro: Denies any numbness/tingling, feeling shaky Heme: Denies any bleeding or bruising Skin: Denies rashes Psychiatric: Anxious and tearful Vital Signs Vital Signs Vital Signs: 02/13/25 14:36 02/13/25 14:36 02/13/25 17:05 Temperature 97 F L Temperature Source Temporal Pulse Rate 113 H 118 H 114 H Respiratory Rate 18 16 22 H Blood Pressure 163/113 H 169/110 H 175/106 H Blood Pressure Mean 129 129 129 Pulse Ox 98 98 94 Oxygen Delivery Method Room Air Room Air Room Air 02/13/25 17:21 02/13/25 18:00 Temperature 99 F Temperature Source Pulse Rate 113 H 102 H Respiratory Rate 18 20 H Blood Pressure 171/95 H 165/74 H Blood Pressure Mean 120 104 Pulse Ox 96 100 Oxygen Delivery Method Room Air Weight Weight: 88.8 kg Body Mass Index (BMI) 28.9 Physical Exam Narrative General: Alert, oriented, appears anxious and tremulous HEENT: Atraumatic, normocephalic Eyes: Subconjunctival hemorrhage on parts of right eye without pain, pupils equal, denies pain, extraocular movements grossly intact Neck: Supple Respiratory: Clear to auscultation bilaterally, normal respiratory effort Cardiovascular: Low-grade sinus tachycardia GI: Soft, nontender, nondistended Extremities: No edema Musculoskeletal: Moving all extremities Neuro: No overt focal neurological deficits, tremulous Skin: No rashes appreciated Psych: Cooperative but tearful and anxious Results Lab / Micro Data 02/13/25 15:17 02/13/25 15:17 Labs: Laboratory Results - last 24 hr 02/13/25 15:17: WBC 12.5 H, RBC 5.53, Hgb 16.2, Hct 46.6, MCV 84.3, MCH 29.3, MCHC 34.8, RDW Std Deviation 46.5 H, RDW Coeff of Rhianna 15.1 H, Plt Count 354, MPV 10.1, Immature Gran % (Auto) 0.400, Neut % (Auto) 66.7, Lymph % (Auto) 22.1, [place] % (Auto) 9.5, Eos % (Auto) 0.1, Baso % (Auto) 1.2 H, Absolute Neuts (auto) 8.4 H, Absolute Lymphs (auto) 2.77, Nucleated RBC % 0, Sodium 137, Potassium 3.7, Chloride 92 L, Carbon Dioxide 21.8, Anion Gap 24 H, BUN 12, Creatinine 0.98, Estim Creat Clear Calc 115.98, Est GFR (MDRD) Non-Af 103, BUN/Creatinine Ratio 12.4, Glucose 92, Calcium 8.8, Total Bilirubin 0.61, AST 227 H, ALT 188 H, Alkaline Phosphatase 91, Total Protein 7.9, Albumin 4.4, Globulin 3.5, Albumin/Globulin Ratio 1.3, Ethyl Alcohol 321.0 H* 02/13/25 16:55: Urine Opiates Screen NEGATIVE, U Buprenorphine Qual NEGATIVE, Ur Oxycodone Screen NEGATIVE, Urine Methadone Screen NEGATIVE, Urine Fentanyl Screen NEGATIVE, Ur Barbiturates Screen NEGATIVE, Ur Phencyclidine Scrn NEGATIVE, Ur Amphetamines Screen NEGATIVE, U Benzodiazepines Scrn NEGATIVE, Urine Cocaine Screen NEGATIVE, U Cannabinoids Screen PRESUMPTIVE POSITIVE Assessment & Plan Assessment/Plan (1) Alcohol withdrawal: (2) Subconjunctival hemorrhage of right eye: PLAN: Plan #Alcohol use disorder - We will begin CIWA every 4 for 24 hours, then every 6 for 24 hours, then every 12 until discharge -Will begin phenobarbital taper -Gabapentin 300 mg every 8 as needed -Will start Bentyl and hydroxyzine as needed as well as loperamide as needed -Trazodone 100 mg p.o. nightly as needed sleep -Begin thiamine and folic acid supplementation -Zofran as needed for nausea -Case management consult to assist with discharge planning -EtOH 321 -UDS cannabis #Subconjunctival hemorrhage -No pain or vision changes -Pt reports he never takes his contacts out, will greatly benefit from following on discharge so he can get additional glasses and contacts #Depression/anxiety -Continue home medications #Tobacco use -Advise cessation -Nicotine replacement available if desired #DVT ppx: Low risk, ambulatory Xochilt De Jesus MD Time spent in the patient's overall evaluation, decision-making process, review of diagnostic data, adjustment of management, discussion with other providers, nursing and ancillary staff involved in patient's care documentation, 56 Minutes Charges/Coding Visit Charges Inpatient E&M: 41667 Init Hosp L2
--- OUTSIDE RECORDS SUMMARY | 2025-02-13 19:12 | XMS RPT_ITS | CCD ---
Author Organization [facility] Inform ion Partnership 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 Name Role Phone Carol FAJARDO, Nikita Llanes Primary Care Provider NIKITA SORENSEN Primary Care NIKITA Galvan Primary Care NIKITA Galvan Primary Care Glo Sorensen MD, Nikita Llanes Primary Care Provider MADELYN CRAIN Attending Unavailable NIKITA SORENSEN Primary Care Unavailable Allergies Allergy Classification Reported Allergen(s) Allergy Type Date of Onset Reaction(s) Facility (20 sources) Cephalosporins (Antibiotic); Translations: [CEPHALOSPORINS] Propensity to adverse reactions to drug 5 [place] (20 sources) Penicillins; Translations: [PENICILLINS] Propensity to adverse reactions to drug 2 [place] Work Phone: (17 sources) Cephalexin Drug Allergy 6 [facility] (17 sources) Citronella Oil Propensity to adverse reactions 2 [facility] Medications Current Medications Medication Drug Class(es) Dates [...] oral solution (1 source) alpha-Adrenergic Agonist, Uncompetitive I-iffiws-L-aspartat e Receptor Antagonist, Sigma-1 Agonist Start: 10-18-2019 [...] End: 05-20-2023 diphenhydrAMINE (BENADryl) injection 12.5 mg [id number] 0.3 ml EPINEPHrine 1 mg/ml auto-injector (5 [...] [#/Vol] 0.2 10*3/uL 0.0 - 0.2 10*3/uL [facility] Basophils/100 WBC (Bld) 2.2 % High 0.0 - 2.0 % [facility] Eosinophils (Bld) [#/Vol] 0 10*3/uL 0.0 - 0.5 10*3/uL [facility] Eosinophils/100 WBC (Bld) 0.4 % 0.0 - 6.0 % [facility] Erythrocyte distribution width (RBC) [Ratio] 14.6 % 11.5 - 15.0 % [facility] Hematocrit (Bld) [Volume fraction] 51 % 40.0 - 52.0 % [facility] Hemoglobin (Bld) [Mass/Vol] 17.1 g/dL 13.0 - 18.0 g/dL [facility] Immature granulocytes (Bld) [#/Vol] 0 10*3/uL NINF - 0.1 10*3/uL [facility] Immature granulocytes/100 WBC (Bld) 0.2 % 0.0 - 2.0 % [facility] Interpretation and review of laboratory results Abnormal [facility] Lymphocytes (Bld) [#/Vol] 3 10*3/uL 1.0 - 4.3 10*3/uL [facility] Lymphocytes/100 WBC (Bld) 37.5 % 15.0 - 45.0 % [facility] MCH (RBC) [Entitic mass] 28.3 pg 26. 0 - 34.0 pg [facility] MCHC (RBC) [Mass/Vol] 33.5 % 30.5 - 36.0 % [facility] MCV (RBC) [Entitic vol] 84.4 fL 77.0 - 99.0 fL [facility] Monocytes (Bld) [#/Vol] 0.8 10*3/uL 0.0 - 0.9 10*3/uL [facility] Monocytes/100 WBC (Bld) 10.2 % 5.0 - 13.0 % [facility] Neutrophils (Bld) [#/Vol] 4 10*3/uL 1.8 - 7.5 10*3/uL [facility] Neutrophils/100 WBC (Bld) 49.5 % 38.0 - 82.0 % [facility] Nucleated RBC/100 WBC (Bld) [Ratio] 0 % [facility] Platelet mean volume (Bld) [Entitic vol] 10.3 fL 9.0 - 12.7 fL [facility] Platelets (Bld) [#/Vol] 399 10*3/uL 140 - 440 10*3/uL [facility] RBC (Bld) [#/Vol] 6.04 10*6/uL High 4.40 - 5.9 0 10*6/uL [facility] WBC (Bld) [#/Vol] 8.1 10*3/uL 3.6 - 10.7 10*3/uL [facility] CBC WITH AUTO DIFFERENTIALon 08-04-2024 Basophils (Bld) [#/Vol] 0.2 10*3/uL Normal 0.0-0.2 [facility] Comment on above: Performed By: #### L [id number] ####Laboratory Technician: YOHANA JARQUIN ([id number])[facility] ([facility])[address] [place] [address] Basophils/100 WBC (Bld) 2.2 % High 0.0-2.0 [facility] Comment on above: Performed By: #### L [id number] ####Laboratory Technician: YOHANA JARQUIN ([id number])[facility])[address] [place] [address] [place] Eosinophils (Bld) [#/Vol] 0.0 10*3/uL Normal 0.0-0.5 [facility] Comment on above: Performed By: #### L [id number] ####Laboratory Technician: YOHANA JARQUIN ([id number])[facility])[address] [place] [address] [place] Eosinophils/100 WBC (Bld) 0.4 % Normal 0.0-6.0 [facility] Comment on above: Performed By: #### L [id number] ####Laboratory Technician: YOHANA [id number])[facility])[address] [place] [address] Erythrocyte distribution width (RBC) [Ratio] 14.6 % Normal 11.5-15.0 [facility] Comment on above: Performed By: #### L [id number] ####Laboratory Technician: YOHANA JARQUIN ([id number])[facility])[address] [place] [address] Hematocrit (Bld) [Volume fraction] 51.0 % Normal 40.0-52.0 [facility] Comment on above: Performed By: #### L [id number] ####Laboratory Technician: YOHANA JARQUIN ([id number])[facility])[address] [place] [address] Hemoglobin (Bld) [Mass/Vol] 17.1 g/dL Normal 13.0-18.0 [facility] Comment on above: Performed By: #### L [id number] ####Laboratory Technician: YOHANA JARQUIN ([id number])[facility])[address] [place] [address] IMMATURE GRANS % 0.2 % Normal 0.0-2.0 [facility] Comment on above: Performed By: #### L [id number] ####Laboratory Technician: YOHANA JARQUIN ([id number])[facility])[address] [place] [address] IMMATURE GRANS ABSOLUTE 0.0 10*3/uL Normal <0.1 [facility] Comment on above: Performed By: #### L [id number] ####Laboratory Technician: YOHANA JARQUIN ([id number])[facility])[address] [place] [address] Lymphocytes (Bld) [#/Vol] 3.0 10*3/uL Normal 1.0-4.3 [facility] Comment on above: Performed By: #### L [id number] ####Laboratory Technician: YOHANA JARQUIN ([id number])[facility])[address] [place] [address] Lymphocytes/100 WBC (Bld) 37.5 % Normal 15.0-45.0 [facility] Comment on above: Performed By: #### L [id number] ####Laboratory Technician: YOHANA JARQUIN ([id number])[facility])[address] [place] [address] MCH (RBC) [Entitic mass] 28.3 pg Normal 26.0-34.0 [facility] Comment on above: Performed By: #### L [id number] ####Laboratory Technician: YOHANA JARQUIN ([id number])[facility])[address] [place] [address] MCHC 33.5 % Normal 30.5-36.0 [facility] Comment on above: Performed By: #### L [id number] ####Laboratory Technician: YOHANA JARQUIN ([id number])[address] MCV (RBC) [Entitic vol] 84.4 fL Normal 77.0-99.0 [facility] Comment on above: Performed By: #### L [id number] ####Laboratory Technician: YOHANA JARQUIN ([id number])[facility])[address] [place] [address] Monocytes (Bld) [#/Vol] 0.8 10*3/uL Normal 0.0-0.9 [facility] Comment on above: Performed By: #### L [id number] ####Laboratory Technician: YOHANA JARQUIN ([id number])[facility])[address] [place] [address] Monocytes/100 WBC (Bld) 10.2 % Normal 5.0-13.0 [facility] Comment on above: Performed By: #### L [id number] ####Laboratory Technician: YOHANA JARQUIN ([id number])[facility])[address] [place] [address] NEUTROPHILS ABSOLUTE 4.0 10*3/uL Normal 1.8-7.5 [facility] Comment on above: Performed By: #### L [id number] ####Laboratory Technician: YOHANA JARQUIN ([id number])[facility] ([facility])[address] [place] [address] Neutrophils/100 WBC (Bld) 49.5 % Normal 38.0-82.0 [facility] Comment on above: Performed By: #### L [id number] ####Laboratory Technician: YOHANA JARQUIN ([id number])[facility])[address] [place] [address] NRBC 0.0 /100 WBCs Normal 0.0-2.0 [facility] Comment on above: Performed By: #### L [id number] ####Laboratory Technician: YOHANA JARQUIN ([id number])[facility])[address] [place] [address] Platelet mean volume (Bld) [Entitic vol] 10.3 fL Normal 9.0-12.7 [facility] Comment on above: Performed By: #### L [id number] ####Laboratory Technician: YOHANA JARQUIN ([id number])[facility] ([facility])[address] [place] [address] Platelets (Bld) [#/Vol] 399 10*3/uL Normal 140-440 [facility] Comment on above: Performed By: #### L [id number] ####Laboratory Technician: YOHANA JARQUIN ([id number])[facility])[address] [place] [address] RBC (Bld) [#/Vol] 6.04 10*6/uL High 4.40-5.90 [facility] Comment on above: Performed By: #### L [id number] ####Laboratory Technician: YOHANA JARQUIN ([id number])[facility])[address] [place] [address] [place] WBC (Bld) [#/Vol] 8.1 10*3/uL Normal 3.6-10.7 [facility] Comment on above: Performed By: #### L [id number] ####Laboratory Technician: YOHANA JARQUIN ([id number])[facility])[address] [place] [address] [place] CKon 08-04-2024 CK [Catalytic activity/Vol] 355 U/L High 30-185 [facility] Comment on above: Performed By: #### L AB46, LAB62, LAB17 ####Laboratory Technician: YOHANA JARQUIN ([id number])[facility])[address] [place] [address] COMPLETE URINALYSISon 2024 BACTERIA (#/HPF) IN URINE Negative Normal Negative [facility] Comment on above: Performed By: #### L [id number] ####Laboratory Technician: YOHANA JARQUIN ([id number])[facility])[address] [place] [address] BILIRUBIN, TOTAL PRESENCE IN URINE Negative Normal Negative [facility] Comment on above: Performed By: #### L [id number] ####Laboratory Technician: YOHANA JARQUIN ([id number])[facility])[address] [place] [address] Clarity (U) Clear Normal Clear [facility] Comment on above: Performed By: #### L [id number] ####Laboratory Technician: YOHANA JARQUIN ([id number])[facility])[address] [place] [address] Color (U) Yellow Normal Lt. Yellow [facility] Comment on above: Performed By: #### L [id number] ####Laboratory Technician: YOHANA JARQUIN ([id number])[facility] ([facility])[address] [place] [address] GLUCOSE (MG/DL) IN URINE Normal Normal Nor mal (<70) [facility] Comment on above: Performed By: #### L [id number] ####Laboratory Technician: YOHANA JARQUIN ([id number])[facility])[address] [place] [address] HEMOGLOBIN PRESENCE IN URINE 0.1 mg/dL Abnormal Negative [facility] Comment on above: Performed By: #### L [id number] ####Laboratory Technician: YOHANA JARQUIN ([id number])[facility] ([facility])[address] [place] [address] HYALINE CASTS (#/LPF) IN URINE SEDIMENT BY MICROSCOPY Negative Normal Negative [facility] Comment on above: Performed By: #### L [id number] ####Laboratory Technician: YOHANA JARQUIN ([id number])[facility] ([facility])[address] [place] [address] Ketones Ql (U) Negative Normal Negative [facility] Comment on above: Performed By: #### L [id number] ####Laboratory Technician: YOHANA JARQUIN ([id number])[facility] ([facility])[address] [place] [address] LEUKOCYTE ESTERASE PRESENCE IN URINE BY TEST STRIP Negative Normal Negative [facility] Comment on above: Performed By: #### L [id number] ####Laboratory Technician: YOHANA JARQIUN ([id number])[facility] ([facility])[address] [place] [address] [place] MUCUS (#/LPF) IN URINE SEDIMENT Few Normal Negative [facility] Comment on above: Performed By: #### L [id number] ####Laboratory Technician: YOHANA JARQUIN ([id number])[facility] ([facility])[address] [place] [address] NITRITE PRESENCE IN URINE Negative Normal Negative [facility] Comment on above: Performed By: #### L [id number] ####Laboratory Technician: YOHANA JARQUIN ([id number])[facility] ([facility])[address] [place] [address] pH (U) 7.0 [pH] Normal 5.0-8.0 [facility] Comment on above: Performed By: #### L [id number] ####Laboratory Technician: YOHANA JARQUIN ([id number])[facility])[address] [place] [address] Protein (U) [Mass/Vol] 600 mg/dL Abnormal Negative [facility] Comment on above: Performed By: #### L [id number] ####Laboratory Technician: YOHANA JARQUIN ([id number])[facility] ([facility])[address] [place] [address] RBC (#/HPF) IN URINE SEDIMENT 0-2 Normal 0-2 [facility] Comment on above: Performed By: #### L [id number] ####Laboratory Technician: YOHANA JARQUIN ([id number])[facility])[address] [place] [address] Specific gravity (U) [Rel density] 1.025 Normal 1.005-1.030 [facility] Comment on above: Performed By: #### L [id number] ####Laboratory Technician: YOHANA JARQUIN ([id number])[facility] ([facility])[address] [place] [address] SQUAMOUS EPITHELIAL CELLS (#/HPF) IN URINE SEDIMENT 0-2 Normal 3-5 [facility] Comment on above: Performed By: #### L [id number] ####Laboratory Technician: YOHANA JARQUIN ([id number])[facility] ([facility])[address] [place] [address] UROBILINOGEN (MG/DL) IN URINE Normal Normal Normal (0-1) [facility] Comment on above: Performed By: #### L [id number] ####Laboratory Technician: YOHANA JARQUIN ([id number])[facility] ([facility])[address] [place] [address] WBC (LEUKOCYTE) (#/HPF) IN URINE SEDIMENT 0-2 Normal 0-5 [facility] Comment on above: Performed By: #### L [id number] ####Laboratory Technician: YOHANA JARQUIN ([id number])[facility] ([facility])[address] [place] [address] COMPREHENSIVE METABOLIC PANE Akhil 08-04-2024 Albumin [Mass/Vol] 4.2 g/dL Normal 3.5-5.0 [facility] Comment on above: Performed By: #### L AB46, LAB62, LAB17 ####Laboratory Technician: YOHANA JARQUIN ([id number])[facility] ([facility])[address] [place] [address] [place] ALP [Catalytic activity/Vol] 79 U/L Normal 40-150 [facility] Comment on above: Performed By: #### Jaspreet MERAZ46, LAB62, LAB17 ####Laboratory Technician: YOHANA JARQUIN ([id number])[facility] ([facility])[address] [place] [address] [place] ALT [Catalytic activity/Vol] 284 U/L High <40 [facility] Comment on above: Performed By: #### Jaspreet AB46, LAB62, LAB17 ####Laboratory Technician: YOHANA JARQUIN ([id number])[facility] ([facility])[address] [place] [address] Anion gap [Moles/Vol] 14 mmol/L High 3-13 [facility] Comment on above: Performed By: #### Jaspreet MERAZ46, LAB62, LAB17 ####Laboratory Technician: YOHANA JARQUIN ([id number])[facility] ([facility])[address] [place] [address] [place] AST [Catalytic activity/Vol] 237 U/L High <34 [facility] Comment on above: Performed By: #### Jaspreet LABOY, LAB62, LAB17 ####Laboratory Technician: YOHANA JARQUIN ([id number])[facility] ([facility])[address] [place] [address] [place] Bilirubin [Mass/Vol] 0.4 mg/dL Normal <1.2 [facility] Comment on above: Performed By: #### Jaspreet LABOY, LAB62, LAB17 ####Laboratory Technician: YOHANA JARQUIN ([id number])[facility])[address] [place] [address] [place] Calcium [Mass/Vol] 8.6 mg/dL Normal 8.4-10.2 [facility] Comment on above: Performed By: #### Jaspreet MERAZ46, LAB62, LAB17 ####Laboratory Technician: YOHANA JARQUIN ([id number])[facility])[address] [place] [address] [place] Chloride [Moles/Vol] 100 mmol/L Normal 98-107 [facility] Comment on above: Performed By: #### L AB46, LAB62, LAB17 ####Laboratory Technician: YOHANA JARQUIN ([id number])[facility])[address] [place] [address] CO2 [Moles/Vol] 26 mmol/L Normal 22-29 [facility] Comment on above: Performed By: #### Jaspreet AB46, LAB62, LAB17 ####Laboratory Technician: YOHANA JARQUIN ([id number])[facility])[address] [place] [address] Creatinine [Mass/Vol] 0.97 mg/dL Normal 0.72-1.25 [facility] Comment on above: Performed By: #### Jaspreet LABOY, LAB62, LAB17 ####Laboratory Technician: YOHANA JARQUIN ([id number])[facility])[address] [place] [address] GLOMERULAR FILTRATION RATE ML/MIN/1.73 SQ M.PREDICTED >90.0 Normal >60.0 [facility] Comment on above: Result Comment: Calc ulation based on the Chronic Kidney Disease Epidemiology Collaboration (CKD-EPI) equation refit without adjustment for race Performed By: #### Jaspreet LABOY, LAB62, LAB17 ####Laboratory Technician: YOHANA JARQUIN ([id number])[facility])[address] [place] [address] Glucose [Mass/Vol] 106 mg/dL High 74-100 [facility] Comment on above: Performed By: #### Jaspreet MERAZ46, LAB62, LAB17 ####Laboratory Technician: YOHANA JARQUIN ([id number])[facility])[address] [place] [address] [place] Potassium [Moles/Vol] 4.0 mmol/L Normal 3.5-5.1 [facility] Comment on above: Result Comment: [facility] potassium values may be up to 0.5 mmol/L lower than serum values. Performed By: #### Jaspreet AB46, LAB62, LAB17 ####Laboratory Technician: YOHANA JARQUIN ([id number])[facility])[address] [place] [address] Protein [Mass/Vol] 8.2 g/dL Normal 6.4-8.3 [facility] Comment on above: Performed By: #### L AB46, LAB62, LAB17 ####Laboratory Technician: YOHANA JARQUIN ([id number])[facility] ([facility])[address] [place] [address] Sodium [Moles/Vol] 140 mmol/L Normal 136-145 [facility] Comment on above: Performed By: #### L AB46, LAB62, LAB17 ####Laboratory Technician: YOHANA JARQUIN ([id number])[facility] ([facility])[address] [place] [address] Urea nitrogen [Mass/Vol] 12 mg/dL Normal 8-21 [facility] Comment on above: Performed By: #### L AB46, LAB62, LAB17 ####Laboratory Technician: YOHANA JARQUIN ([id number])[facility] ([facility])[address] [place] [address] Comprehensive metabolic 1998 panelon 08-04-2024 Albumin [Mass/Vol] 4.2 g/dL 3.5 - 5.0 g/dL [facility] ALP [Catalytic activity/Vol] 79 U/L 40 - 150 U/L [facility] ALT [Catalytic activity/Vol] 284 U/L High NINF - 40 U/L [facility] Anion gap [Moles/Vol] 14 mmol/L High 3 - 13 mmol/L [facility] AST [Catalytic activity/Vol] 237 U/L High NINF - 34 U/L [facility] Bilirubin [Mass/Vol] 0.4 mg/dL NINF - 1.2 mg/dL [facility] Calcium [Mass/Vol] 8.6 mg/dL 8.4 - 10. 2 mg/dL [facility] Chloride [Moles/Vol] 100 mmol/L 98 - 10 7 mmol/L [facility] CO2 [Moles/Vol] 26 mmol/L 22 - 29 mmol/L [facility] Creatinine [Mass/Vol] 0.97 mg/dL 0.72 - 1.25 mg/dL [facility] GFR/1.73 sq M.predicted (S/P/Bld) [Vol rate/Area] - PINF [facility] Comment on above: Calculation based on the Chronic Kidney Disease Epidemiology Collaboration (CKD-EPI) equation refit without adjustment for race Glucose [Mass/Vol] 106 mg/dL High 74 - 100 mg/dL [facility] Potassium [Moles/Vol] 4 mmol/L 3.5 - 5.1 mmol/L [facility] Comment on above: Plasma potassium rosy ues may be up to 0.5 mmol/L lower than serum values. Protein [Mass/Vol] 8.2 g/dL 6.4 - 8.3 g/dL [facility] Sodium [Moles/Vol] 140 mmol/L 136 - 145 mmol/L [facility] Urea nitrogen [Mass/Vol] 12 mg/dL 8 - 21 mg/dL [facility] DRUGS OF ABUSEon 08-04-2024 AMPHETAMINE SCREEN Negative Normal [facility] Comment on above: Performed By: #### L [id number] ####Laboratory Technician: YOHANA JARQUIN ([id number])[address] BARBITURATES SCREEN Negative Normal [facility] Comment on above: Performed By: #### L [id number] ####Laboratory Technician: YOHANA JARQUIN ([id number])[address] BENZODIAZEPINE SCREEN Negative Normal [facility] Comment on above: Performed By: #### L [id number] ####Laboratory Technician: YOHANA JARQUIN ([id number])[address] COCAINE METAB. SCREEN Negative Normal [facility] Comment on above: Performed By: #### L [id number] ####Laboratory Technician: YOHANA JARQUIN ([id number])[address] FENTANYL SCREEN, UR QUAL Negative Normal [facility] Comment on above: Result Comment: ORDE [...] under separate order. Performed By: #### L [id number] ####Laboratory Technician: YOHANA JARQUIN ([id number])[facility] [place] [address] METHADONE SCREEN Negative Normal [facility] Comment on above: Performed By: #### L [id number] ####Laboratory Technician: YOHANA JARQUIN ([id number])[facility] ([facility])[address] [place] [address] OPIATES SCREEN Negative Normal [facility] Comment on above: Performed By: #### L [id number] ####Laboratory Technician: YOHANA JARQUIN ([id number])[facility] ([facility])[address] [place] [address] OXYCODONE SCREEN Negative Normal [facility] Comment on above: Performed By: #### L [id number] ####Laboratory Technician: YOHANA JARQUIN ([id number])[facility] ([facility])[address] [place] [address] PHENCYCLIDINE SCREEN Negative Normal [facility] Comment on above: Performed By: #### L [id number] ####Laboratory Technician: YOHANA JARQUIN ([id number])[facility] ([facility])[address] [place] [address] ECG 12-LEADon 08-04-2024 ECG 12-LEAD IMPRESSION: Sinus rhythm Short NC interval no stemi artifact Electronically Signed On 08-04-2024 01:38:44 EST by Madelyn Crain [facility] ED Nursing Noteon 08-04-2024 ED Nursing Note Complete report provided. To ed of yvonne. [facility] ED Nursing Note A/ox3. Independent t o stretcher. Discharged to [facility]. Belongings set with ems transport. Normal [facility] ED Nursing Note Luzma Kapoor at beds tk obtaining vitals. Normal [facility] ED Nursing Note CHRISTO Fox giving karena ent warm blanket for comfort. Normal [facility] ED Nursing Note EKG at patient bedside. Normal [facility] ED Nursing Note Dr. Tellez at patient bedside. Normal [facility] ED Nursing Note Pt changed into 2 go wns and wanded by officer. Pt has 1 belonging bag. with pt in 47. Normal [facility] ED Provider Noteon ED Provider Note Emergency [...] emergency department for depression. Patient sent from [facility] for medical clearance. Patient presented there with his mother who has been worried about him. He states he had some social issues ongoing with his ex partner. Denies any abuse. Denies hallucinations alcohol drug use homicidal thoughts. Apparently at [facility] he endorsed SI but denies that here. Denies prior attempts. States he is not on any psychiatric medications but he was given Ativan and hydroxyzine reportedly at [facility]. He lives at home with his 10-year-old [...] for clarification.) Madelyn Crain MD Acute Care [facility] Madelyn Crain MD 08/04/24 0141 [facility] ED Provider Note EMERGENCY DEPARTMENT ENCOUNTER Pt [...] COVID 04/2021 Eczema IBS (irritable bowel syndrome) Crenshaw exposure MRSA (methicillin resistant staph aureus) culture positive Substance abuse ([facility]) ([facility]) SURGICAL HISTORY Past Surgical History: Procedure Laterality [...] grade. . Her biological mom lives in [place]. No significant other right now. Has 2 [...] Normal ran (more content not included)... Normal [facility] ETHANOLon 08-04-2024 ETHANOL IN SER/PLAS 274 mg/dL High <10 [facility] Comment on above: Result Comment: MELISSA Centeno COMMENTS: RADIO SCRIPT WRITER depression is seen >100 mg/dL. NOTE: This result is for medical treatment only. Analysis performed using non-forensic procedures. Performed By: #### L AB46, LAB62, LAB17 ####Laboratory Technician: YOHANA JARQUIN ([id number])[facility] ([address] Ethanol (Bld) [Mass/Vol]on 0 08-04-2024 Ethanol [Mass/Vol] 274 mg/dL High NINF - 10 mg/dL [facility] RADIO SCRIPT WRITER depression is se en >100 mg/dL. NOTE: This result is for medical treatment only. Analysis performed using non-forensic procedures. [facility] Laboratory - Chemistry and C hemistry - challengeon 08-04-2024 CK [Catalytic activity/Vol] 355 U/L High 30 - 185 U/L [facility] Laboratory - Drug toxicology on 08-04-2024 Amphetamines Screen method >1000 ng/mL Ql (U) Negative [facility] Barbiturates Screen method >200 ng/mL Ql (U) Negative [facility] Benzodiazepines Ql (U) Negative [facility] Methadone Screen Ql (U) Negative [facility] Opiates Screen Ql (U) Negative [facility] oxyCODONE Ql (U) Negative [facility] Phencyclidine Ql (U) Negative [facility] Laboratory - Microbiology an d Antimicrobial susceptibilityOrdered By: Pilar Burkett on 08-04-2024 SARS-CoV-2 (COVID-19) Ag IA.rapid Ql (Resp) Negative Negative [facility] Comment on above: A negative result do es not rule out the possibility of SARS-CoV-2 infection. NAAT-based methods should be considered for symptomatic patients presenting greater than seven days after onset of symptoms. Method: Lateral flow immunoassay. Fact sheets for healthcare providers and patients can be found at the following sites: https://www.[employer].gov/media/786677/download https://www.[employer].gov/media/295212/download No Panel Informationon 08-04 Interpretation and review of laboratory results Abnormal [facility] COCAINE METAB. SCREEN Negative [facility] FENTANYL SCREEN, UR QUAL Negative [facility] The expected value f or all of [...] is needed, request confirmation under separate order. [facility] P Drewsey 58 degrees [facility] NC Interval 62 ms [facility] QRS Drewsey 45 degrees [facility] QRSD Interval 89 ms [facility] QT Interval 381 ms [facility] QTC Interval 403 ms [facility] T Wave Drewsey 31 degrees [facility] Sinus rhythm Short NC interval no stemi artifact Electronically Signed On 08-04-2024 01:38:44 EST by Madelyn Zavala MD - 08/04/2024 IMPRESSION: Sinus rhythm Short NC interval no stemi artifact Electronically Signed On 08-04-2024 01:38:44 EST by Madelyn Crain [facility] SARS-COV-2 ANTIGENon 025 SARS-COV-2 ANTIGEN SARS-COV-2 ANTIGEN -BINAX Reference Negative Negative A negative result does not rule out the possibility of SARS-CoV-2 infection. NAAT-based methods should be considered for symptomatic patients presenting greater than seven days after onset of symptoms. Method: Lateral flow immunoassay. Fact sheets for healthcare providers and patients can be found at the following sites: https://www.fda.gov/medi a/025959/download https://www.fda.gov/medi a/499406/download Normal [facility] Comment on above: Performed By: #### L [id number] ####Laboratory Technician: YOHANA JARQUIN ([id number])[facility] ([facility])[address] [place] [address] SARS-CoV-2 (COVID-19) Ag IA. rapid Ql (Resp)Ordered By: Pilar Burkett on 08-04-2024 Interpretation and review of laboratory results Normal [facility] Urinalysis complete panel (U )Ordered By: Nicolás Orellana on 08-04-2024 Bacteria LM.HPF (Urine sed) [#/Area] Negative Negative /HPF [facility] Bilirubin Ql (U) Negative Negative mg/dL [facility] Clarity (U) Clear Clear [facility] Color (U) Yellow Lt. Yellow [facility] Epithelial cells.squamous LM.HPF (Urine sed) [#/Area] 0-2 [facility] Glucose Ql (U) Normal Normal (<70) mg/dL [facility] Hemoglobin Ql (U) 0.1 mg/dL Abnormal Negative [facility] Hyaline casts Auto (Urine sed) [#/Area] Negative Negative /LPF [facility] Interpretation and review of laboratory results Abnormal [facility] Ketones (U) [Mass/Vol] Negative Negat danielle mg/dL [facility] Leukocyte esterase Test strip Ql (U) Negative Negative [place]/uL [facility] Mucus LM.HPF (Urine sed) [#/Area] Few Negative /LPF [facility] Nitrite Ql (U) Negative Negative [facility] pH (U) 7.0 [pH] 5.0 - 8.0 pH [facility] Protein (U) [Mass/Vol] 600 mg/dL Abnormal Negative [facility] RBC LM.HPF (Urine sed) [#/Area] 0-2 [facility] Specific gravity (U) [Rel density] 1.025 1.005 - 1.030 [facility] Urobilinogen (U) [Mass/Vol] Normal Normal (0-1) mg/dL [facility] WBC LM.HPF (Urine sed) [#/Area] 0-2 [facility] Vital signson 08-04-2024 Heart rate 67 /min bpm [facility] 36on 01-16-2024 36 Rx sent. Follow up a s scheduled. [facility] 36 Prescription Request : Last medication check: 10/25/22 Last physical exam: 05/01/23 Next scheduled appointment: 05/03/24 Last date of refill on this medication 07/25/23 [facility] CNOVon 08-13-2023 CN Office Visit (UCWSTR ) -------- ANNAMARIE LARIOS ([id number]) 1990 M Date Time Provider Department 08/13/23 7:00 PM NATY NAGY [facility] During your visit today, we recorded the following information about you: Temperature Pulse Respiration Blood pressure 101.5 degrees 122/minute 18/minute 142/86 Weight 89.8 kg Naty Nagy, [employer]SALES REPRESENTATIVE EDUCATION COURSES 08/14/2023 9:40 AM Signed This note was [...] (attention deficit hyperactivity disorder) Bipolar 1 disorder ([facility]) Eczema Hx MRSA infection IBS (irritable bowel syndrome) Substance abuse ([facility]) No past surgical history on file. ALLERGIES [...] tenderness or frontal sinus tenderness. Mouth/Throat: Lips: [place]. No lesions. Mouth: Mucous membranes are moist. No oral lesions. Tongue: No lesions. Palate: No lesions. Pharynx: Oropharynx is clear. Uvula midline. Posterior oropharyngeal erythema present. No pharyngeal swelling, oropharyngeal exudate or uvula swelling. Tonsils: No tonsillar exudate or tonsillar abscesses. 2+ on the right. 2+ on the left. Eyes: General: Lids are normal. No aller (more content not included)... Normal [facility] STREP A MOLECULAR (POC)on Procedural Control Valid [facility] Strep A (POCT) Positive Abnormal Negative [facility] Nilson 05-20-2023 ALT [Catalytic activity/Vol] 23 U/L 9 - 46 U/L [facility] Brian 05-20-2023 AST [Catalytic activity/Vol] 22 U/L 10 - 40 U/L [facility] Lipid 1996 panelon 3 Cholesterol [Mass/Vol] 204 mg/dL High NINF - 200 mg/dL [facility] Cholesterol in HDL [Mass/Vol] 45 mg/dL > OR = 40 [facility] Cholesterol in LDL [Mass/Vol] 131 mg/dL High mg/dL (calc) [facility] Comment on above: Reference range: <10 0 Desirable range <100 mg/dL for primary prevention; <70 mg/dL for patients with CHD or diabetic patients with > or = 2 CHD risk factors. LDL-C is now calculated using the Yasmine calculation, which is a validated novel method providing better accuracy than the Friedewald equation in the estimation of LDL-C. Juvenal DAVIS et al. WINSTON. 2013;310(19): 6479-8714 (http://Forward Talent.Pixonic/faq/KKC934) Cholesterol non HDL [Mass/Vol] 159 mg/dL High [facility] Comment on above: For patients with di abetes plus 1 major ASCVD risk factor, treating to a non-HDL-C goal of <100 mg/dL (LDL-C of <70 mg/dL) is considered a therapeutic option. Cholesterol.total/Choles terol in HDL [Mass ratio] 4.5 {ratio} [facility] Interpretation and review of laboratory results Abnormal [facility] Triglyceride [Mass/Vol] 167 mg/dL High [facility] - 150 mg/dL [facility] No Panel Informationon 05-20 [facility] CNOVon 10-21-2022 [facility] Office Visit (UCWSTR ) -------- ANNAMARIE LARIOS ([id number]) 1990 M Date Time Provider Department 10/21/22 8:30 AM DIDIER KILGORE [facility] During your visit today, we recorded the [...] (attention deficit hyperactivity disorder) Bipolar 1 disorder ([facility]) Eczema Hx MRSA infection IBS (irritable bowel syndrome) Substance abuse ([facility]) No past surgical history on file. ALLERGIES [...] swelling or pain on movement. Mouth/Throat: Lips: [place]. Mouth: Mucous membranes are moist. Pharynx: Oropharynx [...] of care. This note was generated using City Be[employer] software. It may contain errors in wording, punctuation, or spelling. Didier Kilgore, [employer]SALES REPRESENTATIVE EDUCATION COURSES Allergies As of Date: 10/21/2022 Noted Allergy Reaction CEPHLASPORINS (CEPHALOSPORINS) (more content not included)... Normal [facility] STREP A MOLECULAR (POC)on Procedural Control Valid [facility] Strep A (POCT) Negative Negative [facility] CNOVon 09-21-2022 CNOV Office Visit (UCWSTR ) -------- ANNAMARIE LARIOS ([id number]) 1990 M Date Time Provider Department 09/21/22 10:00 AM IAIN LOBO [facility] During your visit today, we recorded the following information about you: Temperature Pulse Respiration Blood pressure 99.2 degrees 72/minute 16/minute 128/82 Weight 84 kg Iain Lobo PA-C 09/21/2022 10:31 AM Signed This note was created using Exanet. Subjective Annamarie Larios is a 32 year [...] (attention deficit hyperactivity disorder) Bipolar 1 disorder ([facility]) Eczema Hx MRSA infection IBS (irritable bowel syndrome) Substance abuse ([facility]) Current Outpatient Medications Medication Sig Dispense Refill [...] Diagnosis:Viral URI [J06.9] Order(s):STREP A MOLECULAR (POC) [8402485] Order #: [id number] #:[id number] Prescriptions as of 09/21/2022 - famotidine (PEPCID) 40 mg tablet Take 40 mg by mouth. - EPINEPHrine (EPIPEN 2-KAMILA) 0.3 mg/0.3 mL auto-injector Inject 0.3 mL intramuscularly as needed. Problem List As Of Date: 09/21/2022 (None) Encounter Status:Closed by IAIN LOBO on 09/21/22 Normal [facility] STREP A MOLECULAR (POC)on Procedural Control Valid [facility] Strep A (POCT) Negative Negative [facility] STREP A MOLECULAR (POC)on Procedural Control Valid [facility] Strep A (POCT) Negative Negative [facility] Emergency Department Summary on 01-19-2022 Emergency Department Summary [facility] Medical Records Department [address] [place] [address] Emergency Department Summary 01/19/22 MR#: [id number] Acct: [id number] Name: ANNAMARIE LARIOS Rep #: [id number] : 1990 31 From: Prosper Corrales DO [...] to get in and before they closed. [facility] Medical History COVID-19 Home Medications [...] oprim [sulfamethoxazole-trim (more content not included)... Normal [facility] CBC W/Diff, Automatedon - PATH REV Reviewed Normal [facility] Comment on above: Performed By: #### L 500.4050, L501.4020, L300.8000, L100.0100, L501.2450 #### [facility] Laboratory [address] [facility] [place], [address] 12 Lead EKGon 06-18-2021 12 Lead EKG [facility] Cardiovascular Services [address] [place] [address] 12 Lead EKG 06/18/21 1501 MR#: [id number] Acct: [id number] Name: ANNAMARIE LARIOS Heraclio Rep #: [id number] : 1990 31 From: Ray Simpson MD [...] ECG Confirmed by MIKA FAJARDO, RAY ([id number]), editor map DANIEL JHAVERI ([id number]) on 06/20/2021 9:49:13 AM Referred By: NERI/RYLEE Confirmed By:RAY SIMPSON MD 06/20/21 0949 Date Ray Simpson MD CC: Dr. Prosper Corrales DO; Dr. Nikita Sorensen MD Signed Normal [facility] Abdomen/Pelvis W IV Cont ONL Yon 06-18-2021 Abdomen/Pelvis W IV Cont ONLY [facility] Imaging Services [address] [place] [address] Abdomen/Pelvis W IV Cont ONLY MR#: [id number] Acct: [id number] Name: ANNAMARIE LARIOS Rep #: [id number] : 1990 [facility] From: Brain Angel MD PCP: Dr. Nikita Sorensen MD Status: REG ER Study: Abdomen/Pelvis W IV Cont ONLY Date of Exam: Exam# [id number] Ordering Dr: Prosper Corrales DO STUDY: CT [...] Prosper Corrales DO; Dr. Nikita Sorensen MD Supervisor Malted Milk: Signed Normal [facility] Chest 1 View (Portable)on Chest 1 View (Portable) [facility] Imaging Services [address] [place] [address] Chest 1 View (Portable) MR#: [id number] Acct: [id number] Name: LARIOSANNAMARIE Heraclio Rep #: [id number] : 1990 31 From: Benji carias MD PCP: Dr. Nikita Sorensen MD Status: REG ER Study: Chest 1 View (Portable) Date of Exam: 06/18/21 Exam# [id number] Ordering Dr: Prosper Corrales DO STUDY: X-RAY [...] Prosper Corrales DO; Dr. Nikita Sorensen MD Supervisor Malted Milk: Signed Normal [facility] Comprehensive Metabolic Prof ilon 06-18-2021 Albumin [Mass/Vol] 3.5 g/dL Normal 3.2-5.0 [facility] Comment on above: Performed By: #### L 500.4050, L501.4020, L300.8000, L100.0100, L501.2450 #### [facility] [address] [place], [address] Albumin/Globulin [Mass ratio] 0.9 {ratio} Normal 0.9-2.4 [facility] Comment on above: Performed By: #### L 500.4050, L501.4020, L300.8000, L100.0100, L501.2450 #### [facility] [address] [place], [address] ALK P 80 U/L Normal 45-117 [facility] Comment on above: Performed By: #### L 500.4050, L501.4020, L300.8000, L100.0100, L501.2450 #### [facility] [address] [place], [address] ALT [Catalytic activity/Vol] 82 U/L High 16-61 [facility] Comment on above: Performed By: #### L 500.4050, L501.4020, L300.8000, L100.0100, L501.2450 #### [facility] [address] [place], [address] AST [Catalytic activity/Vol] 38 U/L High 15-37 [facility] Comment on above: Performed By: #### L 500.4050, L501.4020, L300.8000, L100.0100, L501.2450 #### [facility] [address] [place], [address] Bilirubin [Mass/Vol] 0.50 mg/dL Normal 0.20-1.00 [facility] Comment on above: Result Comment: For patients on eltrombopag therapy, use of Dimension [place] TBIL is not recommended. Performed By: #### L 500.4050, L501.4020, L300.8000, L100.0100, L501.2450 #### [facility] [address] [place], [address] BUN/CRE 17.9 RATIO Normal 10-20 [facility] Comment on above: Performed By: #### L 500.4050, L501.4020, L300.8000, L100.0100, L501.2450 #### [facility] [address] [place], [address] CA,Total 9.0 mg/dL Normal 8.5-10.1 [facility] Comment on above: Performed By: #### L 500.4050, L501.4020, L300.8000, L100.0100, L501.2450 #### [facility] [address] [place], [address] Chloride [Moles/Vol] 104 mmol/L Normal 98-107 [facility] Comment on above: Performed By: #### L 500.4050, L501.4020, L300.8000, L100.0100, L501.2450 #### [facility] [address] [place], [address] CO2 [Moles/Vol] 25.0 mmol/L Normal 21.0-32.0 [facility] Comment on above: Performed By: #### L 500.4050, L501.4020, L300.8000, L100.0100, L501.2450 #### [facility] [address] [place], [address] Creatinine [Mass/Vol] 1.17 mg/dL Normal 0.70-1.30 [facility] Comment on above: Result Comment: The validity of the calculated GFR GFRAA in patients over 70 years has not been determined. Clinical correlation is essential. Performed By: #### L 500.4050, L501.4020, L300.8000, L100.0100, L501.2450 #### [facility] [address] [place], [address] ECRCL 90.64 ml/min Normal [facility] Comment on above: Performed By: #### L 500.4050, L501.4020, L300.8000, L100.0100, L501.2450 #### [facility] [address] [place], [address] EST GFR - AA 93 mL/min Normal >60 [facility] Comment on above: Result Comment: Afri can Andorran GFR Calc Performed By: #### L 500.4050, L501.4020, L300.8000, L100.0100, L501.2450 #### [facility] [address] [place], [address] GAP 9 Normal 5-15 [facility] Comment on above: Performed By: #### L 500.4050, L501.4020, L300.8000, L100.0100, L501.2450 #### [facility] [address] [place], [address] GFR/1.73 sq M.predicted among non-blacks MDRD (S/P/Bld) [Vol rate/Area] 77 mL/min/{1.73_m2} Normal >60 [facility] Comment on above: Result Comment: Non- GFR Calc Performed By: #### L 500.4050, L501.4020, L300.8000, L100.0100, L501.2450 #### [facility] [address] [place], [address] Globulin (S) [Mass/Vol] 3.8 g/dL Normal 2.2-4.2 [facility] Comment on above: Performed By: #### L 500.4050, L501.4020, L300.8000, L100.0100, L501.2450 #### [facility] [address] [place], [address] Glucose [Mass/Vol] 151 mg/dL High 74-106 [facility] Comment on above: Result Comment: Fast ing Glucose result greater than or equal to 126 mg/dL suggests DIABETES MELLITUS per A.D.A. criteria. Please note revised GLUCOSE reference range effective 2017. Performed By: #### L 500.4050, L501.4020, L300.8000, L100.0100, L501.2450 #### [facility] [address] [place], [address] Potassium [Moles/Vol] 3.7 mmol/L Normal 3.5-5.1 [facility] Comment on above: Performed By: #### L 500.4050, L501.4020, L300.8000, L100.0100, L501.2450 #### [facility] [address] [place], [address] Sodium [Moles/Vol] 138 mmol/L Normal 136-145 [facility] Comment on above: Performed By: #### L 500.4050, L501.4020, L300.8000, L100.0100, L501.2450 #### [facility] [address] [place], [address] T PROT 7.3 g/dL Normal 6.4-8.2 [facility] Comment on above: Performed By: #### L 500.4050, L501.4020, L300.8000, L100.0100, L501.2450 #### [facility] [address] [place], [address] Urea nitrogen [Mass/Vol] 21 mg/dL High - [facility] Comment on above: Performed By: #### L 500.4050, L501.4020, L300.8000, L100.0100, L501.2450 #### [facility] [address] [place], [address] D-Dimer Quantitative (DVT/PE )on 06-18-2021 D-DIMER QUANT <= 0.27 Normal 0.27-0.49 [facility] Comment on above: Result Comment: NORM AL D-Dimer level (<0.50) indicates no DVT or PE. Performed By: #### L 500.4050, L501.4020, L300.8000, L100.0100, L501.2450 #### [facility] [address] [place], [address] Emergency Department Summary on 06-18-2021 Emergency Department Summary [facility] Medical Records Department [address] [place] [address] Emergency Department Summary 06/18/21 MR#: [id number] Acct: [id number] Name: ANNAMARIE LARIOS Rep #: [id number] : 1990 31 From: Prosper Corrales DO [...] diarrhea. He is eating appropriately for him. [facility] Medical History (Updated 06/18/21 @ [...] Std Deviation 48.4 H RDW Coeff of Rihanna 14.8 H Plt Count 615 H MPV 9.9 Immature Gran % (Auto) 0.800 Neut % (Auto) 64.2 Lymph % (Auto) 23.9 [place]shaw % (Auto) 9.0 Eos % (Auto) 1.3 Baso % ( (more content not included)... Normal [facility] L501.4020on 06-18-2021 TROPONIN-I HS 5 pg/mL Normal 3.0-78.0 [facility] Comment on above: Result Comment: Plea se Note: New Test Units and Gender Specific Reference Ranges. For more information see Policy Stat Procedure [place] High Sensitivity Troponin (TNIH) and attachments. Performed By: #### L 500.4050, L501.4020, L300.8000, L100.0100, L501.2450 ####[facility] [address] [place], [address] Lipaseon 06-18-2021 Lipase [Catalytic activity/Vol] 214 U/L Normal 73-393 [facility] Comment on above: Performed By: #### L 500.4050, L501.4020, L300.8000, L100.0100, L501.2450 ####[facility] [address] [place], [address] Urinalysis, Completeon 06-18 BACTERIA 0 SEEN Normal None Seen [facility] Comment on above: Order Comment: VIET CTOR TO SPECIFY Performed By: #### L 400.0001 #### [facility] [address] [place], [address] EPI,SQUAMOUS 0 SEEN Normal 0-5 [facility] Comment on above: Order Comment: VIET CTOR TO SPECIFY Performed By: #### L 400.0001 #### [facility] [address] [place], [address] Mucus Ql (Urine sed) [address] [facility] Comment on above: Order Comment: VIET CTOR TO SPECIFY Performed By: #### L 400.0001 #### [facility] [address] [place], [address] RBC 0 SEEN Normal 0-5 [facility] Comment on above: Order Comment: VIET CTOR TO SPECIFY Performed By: #### L 400.0001 #### [facility] [address] [place], [address] WBC 0 SEEN Normal 0-5 [facility] Comment on above: Order Comment: VIET CTOR TO SPECIFY Performed By: #### L 400.0001 #### [facility] [address] [place], [address] Urine Drug Screen (VISTA)on 06-18-2021 AMPHETAMINES Negative Normal <1000 ng/mL [facility] Comment on above: Performed By: #### L 505.5000 #### [facility] [address] [place], [address] BARBITIURATES Negative Normal < 200 ng/mL [facility] Comment on above: Performed By: #### L 505.5000 #### [facility] [address] [place], [address] BENZODIAZIPINE Negative Normal < 200 ng/mL [facility] Comment on above: Performed By: #### L 505.5000 #### [facility] [address] [place], [address] COCAINE Negative Normal < 300 ng/mL [facility] Comment on above: Performed By: #### L 505.5000 #### [facility] [address] [place], [address] ECSTACY Negative Normal < 500 ng/mL [facility] Comment on above: Performed By: #### L 505.5000 #### [facility] [address] [place], [address] METHADONE Negative Normal < 300 ng/mL [facility] Comment on above: Performed By: #### L 505.5000 #### [facility] [address] [place], [address] OPIATES Negative Normal < 300 ng/mL [facility] Comment on above: Performed By: #### L 505.5000 #### [facility] Laboratory [address] [place], [address] PCP Negative Normal < 25 ng/mL [facility] Comment on above: Performed By: #### L 505.5000 #### [facility] Laboratory [address] [place], [address] THC Positive Abnormal < 50 ng/mL [facility] Comment on above: Performed By: #### L 505.5000 #### [facility] Laboratory [address] [place], [address] VISTA UDS PH 6 Normal [facility] Comment on above: Performed By: #### L 505.5000 #### [facility] Laboratory [address] [place], [address] CR Chest PA/LATon 06-07-2021 CR Chest PA/LAT Patient Name: ANNAMARIE CORLEY Diagnostic Radiology ACCESSION EXAM DATE/TIME PROCEDURE ORDERING PROVIDER [id number] 06/07/2021 13:35 EST CR Chest PA and LAT [id number] -COBURN, CHETNA CPT code 87184 Reason For Exam (CR Chest PA and [...] Transcribed Date and Time: 06/07/2021 2:35 Normal [facility] XR CHEST (2 VW)on 06-07-2021 Patient Name: ANNAMARIE CORLEY Diagnostic Radiology ACCESSION EXAM DATE/TIME PROCEDURE ORDERING PROVIDER [id number] 06/07/2021 13:35 EST CR Chest PA & LAT [id number] -COBURN, CHETNA CPT code 64520 Reason For Exam (CR Chest PA & [...] HARLAN Transcribed Date and Time: 06/07/2021 2:35 [facility] RAD Addy Walker MD - 06/07/2021 [id number]iology ACCESSION EXAM DATE/TIME PROCEDURE ORDERING PROVIDER [id number] 06/07/2021 13:35 EST CR Chest PA & LAT [id number] -CHETNA [place] CPT code 58520 Reason For Exam (CR Chest PA & [...] HARLAN Transcribed Date and Time: 06/07/2021 2:35 [facility] Work Phone: Radiology Study observation (narrative) [facility] Work Phone: XR CHEST (2 VW)Ordered By: Barry Walker on 06-07-2021 [facility] Work Phone: Daily Progress Note-Gastroen terologyon 12-23-2018 Daily Progress Note-Gastroenterology Service: Gastroenterology Subjective Data: ANNAMARIE LARIOS is a 28 year old Male who is Hospital Day # 2. No acute issues. Noted patient was given mashed potato last night. Objective Data: Objective Information: T PRBPSpO2 Value36.80081236/14776% Date/Time12/23 7: 7: 7: 7: 7:31 Range(36.2C - 37.2C ) (51 - 92 ) (16 - 17 ) (105 - 138 )/ (59 - 79 ) (96% - 100% ) Highest temp of 37.2 C was recorded at 12/22 10:13 Pain reported at 12/23 6:45: 0 = None T PRBPSpO2 Value36.89473112/84287% Date/Time12/23 7: 7: 7: 7: 7:31 Range(36.2C [...] the note. I personally evaluated the patient [id number] Electronic Signatures: Ondina Slater) (Signed 05-Jan-2019 09:19) Authored: Signature/Cosignature/At testation Co-Signer: Assessment and Plan, Signature/Cosignature/At testation Jody Ochoa (Fellow)) (Signed 23-Dec-2018 14:37) Authored: Service, Subjective Data, Objective Data, Assessment and Plan, Signature/Cosignature/At testation Last Updated: 05-Jan-2019 09:19 by Ondina Slater) Normal [facility] Cytologyon 12-23-2018 [facility] Cytology Patient Name ANNAMARIE LARIOS Date of Procedure: 12/23/2018 Date Reported: 12/24/2018 Date Received: 12/23/2018 Date of / Sex 1990 (Age: 28) / M Race: WHITE Submitting Physician: LEIGH WHEELER MD Other External # FINAL CYTOLOGICAL INTERPRETATION A. ESOPHAGEAL BRUSH: -- NO MALIGNANT CELLS IDENTIFIED. -- FUNGAL ORGANISMS PRESENT MORPHOLOGICALLY CONSISTENT WITH DOMINGA SPECIES. -- SEE SURGICAL SPECIMEN [id number]. The gross and/or microscopic findings were reviewed in conjunction with pathology resident, Eunice Page M.D. Electronically Signed Out By JENNIFER WAGNER III D.O. By the signature on this report, the individual or group listed as making the Final Interpretation/Diagnosis certifies that they have reviewed this case. Slide(s) initially screened by a Record Center Coordinator at [place] [address] Clinical History EVALUATE FOR DOMINGA Source of Specimen A: ESOPHAGEAL BRUSH Specimen Submitted as: A: ESOPHAGEAL BRUSH pap non-esl tutor ThinPrep slide Gross Description 1 BRUSH IN 30cc CLEAR CYTOLYT, WITH PARTICLES Normal [facility] Comment on above: Performed By: #### C #### [facility] Cytology [address] [place] [address] Surgical Pathology Depar tmenton 12-23-2018 [facility] Surgical Pathology Department Name ANNAMARIE LARIOS Pathologist: ODILON SNYDER M.D., PhD. Date of Procedure: 12/23/2018 Date Received: 12/23/2018 Date Reported 12/25/2018 Submitting Physician: LEIGH WHEELER MD Location: Copy To/Referring/Attending: NATY NAGY, SALES REPRESENTATIVE EDUCATION COURSES Other External # MD Ondina FOLEY MD [...] toto in one cassette. DPG dpg/12/23/2018 Normal [facility] Comment on above: Performed By: #### U HCS #### [facility] Surgical Pathology Department [address] [facility] [address] BASIC METABOLIC PANELon - Anion gap [Moles/Vol] 16 mmol/L Normal 10 - 20 [facility] Comment on above: Performed By: #### B MP #### [facility] [address] [place] [address] Calcium [Mass/Vol] 10.2 mg/dL Normal 8.6 - 10.6 [facility] Comment on above: Performed By: #### B MP #### [facility] [address] [place] [address] Chloride [Moles/Vol] 102 mmol/L Normal 98 - 107 [facility] Comment on above: Performed By: #### B MP #### [facility] [address] [place] [address] Creatinine [Mass/Vol] 1.02 mg/dL Normal 0.50 - 1.30 [facility] Comment on above: Performed By: #### B MP #### [facility] [address] [place] [address] GFR- AM. >60 Normal >60 [facility] Comment on above: Result Comment: CALC ULATIONS OF ESTIMATED GFR ARE PERFORMED USING THE MDRD STUDY EQUATION FOR THE IDMS-TRACEABLE CREATININE METHODS. CLIN CHEM 2007;53:766-72 Performed By: #### B MP #### [facility] [address] [place] [address] GFR-NON AM. >60 Normal >60 [facility] Comment on above: Performed By: #### B MP #### [facility] [address] [place] [address] Glucose [Mass/Vol] 94 mg/dL Normal 74 - 99 [facility] Comment on above: Performed By: #### B MP #### [facility] [address] [place] [address] HCO3 (Bld) [Moles/Vol] 27 mmol/L Normal 21 - 32 [facility] Comment on above: Performed By: #### B MP #### [facility] [address] [place] [address] Potassium [Moles/Vol] 4.4 mmol/L Normal 3.5 - 5.3 [facility] Comment on above: Performed By: #### B MP #### [facility] [address] [place] [address] Sodium [Moles/Vol] 141 mmol/L Normal 136 - 145 [facility] Comment on above: Performed By: #### B MP #### [facility] [address] [place] [address] Urea nitrogen [Mass/Vol] 10 mg/dL Normal 6 - 23 [facility] Comment on above: Performed By: #### B MP #### [facility] [address] [place] [address] CBC AND DIFFERENTIALon 12-22 % AUTOMATED IMMATURE GRAN 0.3 % Normal 0.0 - 0.9 [facility] Comment on above: Result Comment: Perc ent differential counts (%) should be interpreted in the context of the absolute cell counts (cells/L). Performed By: #### C BCDF #### [facility] [address] [place] [address] Basophils (Bld) [#/Vol] 0.15 10*3/uL High 0.00 - 0.1 0 [facility] Comment on above: Performed By: #### C BCDF #### [facility] [address] [place] [address] Basophils/100 WBC (Bld) 1.4 % Normal 0.0 - 2.0 [facility] Comment on above: Performed By: #### C BCDF #### [facility] [address] [place] [address] Eosinophils (Bld) [#/Vol] 0.35 10*3/uL Normal 0.00 - 0.70 [facility] Comment on above: Performed By: #### C BCDF #### [facility] [address] [place] [address] Eosinophils/100 WBC (Bld) 3.2 % Normal 0.0 - 6.0 [facility] Comment on above: Performed By: #### C BCDF #### [facility] [address] [place] [address] Erythrocyte distribution width (RBC) [Ratio] 14.0 % Normal 11.5 - 14.5 [facility] Comment on above: Performed By: #### C BCDF #### [facility] [address] [place] [address] Hematocrit (Bld) [Volume fraction] 49.7 % Normal 41.0 - 52.0 [facility] Comment on above: Performed By: #### C BCDF #### [facility] [address] [place] [address] Hemoglobin (Bld) [Mass/Vol] 16.8 g/dL Normal 13.5 - 17.5 [facility] Comment on above: Performed By: #### C BCDF #### [facility] [address] [place] [address] Lymphocytes (Bld) [#/Vol] 3.79 10*3/uL Normal 1.20 - 4.80 [facility] Comment on above: Performed By: #### C BCDF #### [facility] [address] [place] [address] Lymphocytes/100 WBC (Bld) 34.3 % Normal 13.0 - 44.0 [facility] Comment on above: Performed By: #### C BCDF #### [facility] [address] [place] [address] MCHC (RBC) [Mass/Vol] 33.8 g/dL Normal 32.0 - 36.0 [facility] Comment on above: Performed By: #### C BCDF #### [facility] [address] [place] [address] MCV (RBC) [Entitic vol] 88 fL Normal 80 - 100 [facility] Comment on above: Performed By: #### C BCDF #### [facility] [address] [place] [address] Monocytes (Bld) [#/Vol] 1.32 10*3/uL High 0.10 - 1.0 0 [facility] Comment on above: Performed By: #### C BCDF #### [facility] [address] [place] [address] Monocytes/100 WBC (Bld) 11.9 % Normal 2.0 - 10.0 [facility] Comment on above: Performed By: #### C BCDF #### [facility] [address] [place] [address] Neutrophils (Bld) [#/Vol] 5.41 10*3/uL Normal 1.20 - 7.70 [facility] Comment on above: Performed By: #### C BCDF #### [facility] [address] [place] [address] Neutrophils/100 WBC (Bld) 48.9 % Normal 40.0 - 80.0 [facility] Comment on above: Performed By: #### C BCDF #### [facility] [address] [place] [address] Nucleated RBC/100 WBC (Bld) [Ratio] 0.0 /100 WBC Normal 0.0-0.0 [facility] Comment on above: Performed By: #### C BCDF #### [facility] [address] [place] [address] Platelets (Bld) [#/Vol] 480 10*3/uL High 150 - 450 [facility] Comment on above: Performed By: #### C BCDF #### [facility] [address] [place] [address] RBC (Bld) [#/Vol] 5.64 x10E12/L Normal 4.50 - 5.90 [facility] Comment on above: Performed By: #### C BCDF #### [facility] [address] [place] [address] WBC (Bld) [#/Vol] 11.1 10*3/uL Normal 4.4 - 11.3 [facility] Comment on above: Performed By: #### C BCDF #### [facility] [address] [place] [address] COAGULATION SCREENon 019 aPTT Coag (Bld) [Time] 36 s Normal 28 - 38 [facility] Comment on above: Result Comment: THE APTT IS NO LONGER USED FOR MONITORING UNFRACTIONATED HEPARIN THERAPY. FOR MONITORING HEPARIN THERAPY, USE THE HEPARIN ASSAY. Performed By: #### C OAGS #### [facility] [address] [place] [address] INR Coag (PPP) [Relative time] 1.0 {INR} Normal 0.9 - 1.1 [facility] Comment on above: Performed By: #### C OAGS #### [facility] [address] [place] [address] PT Coag (PPP) [Time] 11.0 s Normal 9.7 - 12.7 [facility] Comment on above: Performed By: #### C OAGS #### [facility] [address] [place] [address] Consult-Gastroenterologyon 0 12-22-2018 Consult-Gastroenterology Service: Service: Gastroenterology [...] cephalosporins: Hives/Urticaria Objective: Objective Information: T PRBPSpO2 Value36.31791620/7698% Date/Time12/22 18: 18: 18: 18: 18:27 Range(36.2C [...] the note. I personally evaluated the patient [id number] Electronic Signatures: Ondina Slater) (Signed 05-Jan-2019 09:09) Authored: Objective, Signature/Cosignature/At testation Co-Signer: History of Present Illness, Objective, Assessment/Recommendatio ns, Signature/Cosignature/At testation Jody Ochoa (Fellow)) (Signed 22-Dec-2018 21:27) Authored: Service, History of Present Illness, Allergies, Objective, Assessment/Recommendatio ns, Signature/Cosignature/At testation Last Updated: 05-Jan-2019 09:09 by Ondina Slater) [facility] Provider Note - ED v2on 11-29 Provider [...] 19 days ago. He was seen at [place] ED right afterwards with negative chest X-ray and abdominal xray. Patient was then referred to GI and ENT doctors with no finding from esophagoscopy. In his barium esophagram done yesterday at [place], there was a foreign body of 1.3 x 0.8cm in the upper esophagus causing focal esophagus dilation. He was referred to GI , however due to insurance purposes was told to come to [facility] for GI consult. Patient has been [...] SIGNS: T PRBP SpO2O2(LPM) %FiO2 Method 22-Dec-2018 13:46:[id number]/71 100 room air, no respiratory support 22-Dec-2018 11:36:00-4617417/79 96 room air, no respiratory support 22-Dec-2018 [...] ill patient: no Electronic Signatures: Sobeida More (MARKETING COMMUNICATIONS LEADER-SALES REPRESENTATIVE EDUCATION COURSES) (Signed 22-Dec-2018 17:00) Authored: Provider Note - ED v2 Devyn Jimenez (DO) (Signed 22-Dec-2018 16:50) Authored: Provider Note - ED v2 Co-Signer: Provider Note - ED v2 Last Updated: 22-Dec-2018 17:00 by Sobeida More (MARKETING COMMUNICATIONS LEADER-SALES REPRESENTATIVE EDUCATION COURSES) References: 1. Data Referenced From Triage - ED 12/22/2018 10:13 AM Normal [facility] Risk Screen - Adult Emergenc yon 12-22-2018 [...] Learning Preferencesindividual instruction Cultural Considerationsnone Developmental Considerationsnone Anabaptist Considerationsnone Learning Assessment (Other Learner): Learning Assessment (Other Learner): Other learner availableyes... Learnermother Factors Influencing Readiness to Learnacuteness of illness Factors that Impact Ability to Learnnone Devices/Methods Used to Communicatenone Learning Preferencesindividual instruction Cultural Considerationsnone Developmental Considerationsnone Anabaptist Considerationsnone Pressure Injury/TB/Substance: Pressure Injury: Pressure Injury Present on Admissionno Do you have a coughno Substance Use Current or Former Historynever: Cigarette/Tobacco, e-Cigarette/Vaping, Alcohol, Street Drugs Admission Risk Screen: Significant IndicatorsComplete CAGE: CAGE: Is this an injured patient at a Trauma Center ([facility]/[place] /[place]): no Electronic Signatures: Sunitha Ibarra (RN) (Signed 22-Dec-2018 10:53) Authored: Preferred Language, Advanced Directives, Family Violence Adult, Learning Assessment (Patient), Learning Assessment (Other Learner), Pressure Injury/TB/Substance, CAGE Last Updated: 22-Dec-2018 10:53 by Sunitha Ibarra (CHRISTO) Normal [facility] TH CHEST 2 VIEW PA AND LATon 12-22-2018 TH CHEST 2 VIEW PA AND LAT Patient Name: LUIS ENRIQUE DE LUNA STUDY: TH CHEST 2 VIEW PA AND LAT; 12/22/2018 12:05 pm INDICATION: swallowed aluminum foil. COMPARISON/CORRELATION: None available. ACCESSION NUMBER(S): [id number] ORDERING CLINICIAN: SOBEIDA MORE TECHNIQUE: PA, Lateral [...] as stated. This study was interpreted at [place], [place]. Electronically signed by: ANUJ BOO MD Normal [facility] Triage - EDon 12-22-2018 Triage - ED [...] than 3 weeks: no Travel outside of [facility]: no Allergies: yes Patient has homicidal thoughts: no ESCOBAR: 3 [place] Suicide Suicide Risk Screen In the Past [...] Accompanied By: self Language: Spoken Language Preferred: Cook Islander Reading Language Preferred: [place] Islander Chicken Raiser Requested: no granite countertop installer was requested PRIMARY ASSESSMENT ANNAMARIE LARIOS's primary [...] 22-Dec-2018 18:07 by Darleen Mayberry (RN) Normal [facility] Vital Signs Date Time Vital Sign Value Performing Clinician Facility 08-04-2024 03:17-0500 Body temperature 97.59 [degF] Madelyn Crain MD Work Phone: [facility] 08-04-2024 03:17-0500 Diastolic blood pressure 70 mm[Hg] Madelyn Crain MD Work Phone: [facility] 08-04-2024 03:17-0500 Heart rate 83 /min Madelyn Crain MD Work Phone: [facility] 08-04-2024 03:17-0500 Respiratory rate 18 /min Madelyn Crain MD Work Phone: [facility] 08-04-2024 03:17-0500 SaO2% (BldA) [Mass fraction] 94 % Madelyn Crain MD Work Phone: [facility] 08-04-2024 03:17-0500 Systolic blood pressure 121 mm[Hg] Madelyn Crain MD Work Phone: [facility] 08-04-2024 01:25-0500 Body height 175.3 cm Madelyn Crain MD Work Phone: [facility] 08-04-2024 01:25-0500 Body mass index (BMI) [Ratio] 28.06 kg/m2 Madelyn Crain MD Work Phone: [facility] 08-04-2024 01:25-0500 Body weight 86.18 kg Madelyn Crain MD Work Phone: [facility] 08-13-2023 18:54-0500 Body temperature 101.5 [degF] Naty Nagy MARKETING COMMUNICATIONS LEADER.SALES REPRESENTATIVE EDUCATION COURSES Work Phone: [facility] 08-13-2023 18:54-0500 Body weight 89.81 kg Naty Nagy MARKETING COMMUNICATIONS LEADER.SALES REPRESENTATIVE EDUCATION COURSES Work Phone: [facility] 08-13-2023 18:54-0500 Diastolic blood pressure 86 mm[Hg] Naty Nagy MARKETING COMMUNICATIONS LEADER.SALES REPRESENTATIVE EDUCATION COURSES Work Phone: [facility] 08-13-2023 18:54-0500 Heart rate 122 /min Naty Nagy MARKETING COMMUNICATIONS LEADER.SALES REPRESENTATIVE EDUCATION COURSES Work Phone: [facility] 08-13-2023 18:54-0500 Respiratory rate 18 /min Naty Nagy MARKETING COMMUNICATIONS LEADER.SALES REPRESENTATIVE EDUCATION COURSES Work Phone: [facility] 08-13-2023 18:54-0500 SaO2% (BldA) [Mass fraction] 97 % Naty Nagy MARKETING COMMUNICATIONS LEADER.SALES REPRESENTATIVE EDUCATION COURSES Work Phone: [facility] 08-13-2023 18:54-0500 Systolic blood pressure 142 mm[Hg] Naty Nagy MARKETING COMMUNICATIONS LEADER.SALES REPRESENTATIVE EDUCATION COURSES Work Phone: [facility] 05-20-2023 12:50-0500 Diastolic blood pressure 74 mm[Hg] Nasrin Jaffe MD Work Phone: [facility] 05-20-2023 12:50-0500 Heart rate 59 /min Nasrin Jaffe MD Work Phone: [facility] 05-20-2023 12:50-0500 Respiratory rate 11 /min Nasrin Jaffe MD Work Phone: [facility] 05-20-2023 12:50-0500 SaO2% (BldA) [Mass fraction] 99 % Nasrin Jaffe MD Work Phone: [facility] 05-20-2023 12:50-0500 Systolic blood pressure 118 mm[Hg] Nasrin Jaffe MD Work Phone: [facility] 05-20-2023 12:25-0500 Body temperature 97 [degF] Nasrin Jaffe MD Work Phone: [facility] 05-20-2023 09:12-0500 Body height 175.3 cm Nasrin Jaffe MD Work Phone: [facility] 05-20-2023 09:12-0500 Body mass index (BMI) [Ratio] 27.62 kg/m2 Nasrin Jaffe MD Work Phone: [facility] 05-20-2023 09:12-0500 Body weight 84.82 kg Nasrin Jaffe MD Work Phone: [facility] 05-01-2023 09:11-0400 Body temperature 98.4 [degF] Mare Bridenthal MARKETING COMMUNICATIONS LEADER - SALES REPRESENTATIVE EDUCATION COURSES Work Phone: [facility] 05-01-2023 09:11-0400 Diastolic blood pressure 84 mm[Hg] Mare Bridenthal MARKETING COMMUNICATIONS LEADER - SALES REPRESENTATIVE EDUCATION COURSES Work Phone: [facility] 05-01-2023 09:11-0400 Heart rate 84 /min Mare Bridenthal MARKETING COMMUNICATIONS LEADER - SALES REPRESENTATIVE EDUCATION COURSES Work Phone: [facility] 05-01-2023 09:11-0400 SaO2% (BldA) [Mass fraction] 98 % Mare Bridenthal MARKETING COMMUNICATIONS LEADER - SALES REPRESENTATIVE EDUCATION COURSES Work Phone: [facility] 05-01-2023 09:11-0400 Systolic blood pressure 129 mm[Hg] Mare Bridenthal MARKETING COMMUNICATIONS LEADER - SALES REPRESENTATIVE EDUCATION COURSES Work Phone: [facility] 04-30-2023 13:29-0400 Body height 175.3 cm Edwina Delaney PA-C Work Phone: [facility] 04-30-2023 13:29-0400 Body mass index (BMI) [Ratio] 27.62 kg/m2 [facility]ional [facility] Laboratorieseder PA-C Work Phone: [facility] 04-30-2023 13:29-0400 Body weight 84.82 kg EdwinaRegional Diagnostic Laboratorieseder PA-C Work Phone: [facility] 04-19-2023 19:43-0400 Diastolic blood pressure 62 mm[Hg] [facility] 04-19-2023 19:43-0400 Heart rate 72 /min [facility] 04-19-2023 19:43-0400 Respiratory rate 18 /min [facility] 04-19-2023 19:43-0400 SaO2% (BldA) [Mass fraction] 97 % [facility] 04-19-2023 19:43-0400 Systolic blood pressure 133 mm[Hg] [facility] 04-19-2023 18:15-0400 Body height 175.26 cm [facility] 04-19-2023 18:15-0400 Body mass index (BMI) [Ratio] 27.3 kg/m2 [facility] 04-19-2023 18:15-0400 Body temperature 97.6 [degF] [facility] 04-19-2023 18:15-0400 Body weight 84.18 kg [facility] 10-21-2022 08:34-0400 Body temperature 98.4 [degF] [facility] MARKETING COMMUNICATIONS LEADER.SALES REPRESENTATIVE EDUCATION COURSES Work Phone: [facility] 10-21-2022 08:34-0400 Body weight 84.55 kg [facility] MARKETING COMMUNICATIONS LEADER.SALES REPRESENTATIVE EDUCATION COURSES Work Phone: [facility] 10-21-2022 08:34-0400 Diastolic blood pressure 80 mm[Hg] [facility] MARKETING COMMUNICATIONS LEADER.SALES REPRESENTATIVE EDUCATION COURSES Work Phone: [facility] 10-21-2022 08:34-0400 Heart rate 100 /min [facility] MARKETING COMMUNICATIONS LEADER.SALES REPRESENTATIVE EDUCATION COURSES Work Phone: [facility] 10-21-2022 08:34-0400 Respiratory rate 21 /min [facility] MARKETING COMMUNICATIONS LEADER.SALES REPRESENTATIVE EDUCATION COURSES Work Phone: [facility] 10-21-2022 08:34-0400 SaO2% (BldA) [Mass fraction] 98 % [facility] MARKETING COMMUNICATIONS LEADER.SALES REPRESENTATIVE EDUCATION COURSES Work Phone: [facility] 10-21-2022 08:34-0400 Systolic blood pressure 132 mm[Hg] [facility] MARKETING COMMUNICATIONS LEADER.SALES REPRESENTATIVE EDUCATION COURSES Work Phone: [facility] 09-21-2022 10:01-0400 Body temperature 99.19 [degF] Iain Lobo PA-C Work Phone: [facility] 09-21-2022 10:01-0400 Body weight 84.01 kg Iain Athy PA-C Work Phone: [facility] 09-21-2022 10:01-0400 Diastolic blood pressure 82 mm[Hg] Iain Athy PA-C Work Phone: [facility] 09-21-2022 10:01-0400 Heart rate 72 /min Iain Athy PA-C Work Phone: [facility] 09-21-2022 10:01-0400 Respiratory rate 16 /min Iain Athy PA-C Work Phone: [facility] 09-21-2022 10:01-0400 SaO2% (BldA) [Mass fraction] 97 % Iain Athy PA-C Work Phone: [facility] 09-21-2022 10:01-0400 Systolic blood pressure 128 mm[Hg] Iain Athy PA-C Work Phone: [facility] 04-29-2022 12:04-0400 Body temperature 98.71 [degF] Dora Bogner PA-C Work Phone: [facility] 04-29-2022 12:04-0400 Body weight 76.2 kg Dora Bogner PA-C Work Phone: [facility] 04-29-2022 12:04-0400 Diastolic blood pressure 72 mm[Hg] Dora Bogner PA-C Work Phone: [facility] 04-29-2022 12:04-0400 Heart rate 84 /min Dora Bogner PA-C Work Phone: [facility] 04-29-2022 12:04-0400 Respiratory rate 16 /min Dora Bogner PA-C Work Phone: [facility] 04-29-2022 12:04-0400 SaO2% (BldA) [Mass fraction] 99 % Dora Bogner PA-C Work Phone: [facility] 04-29-2022 12:04-0400 Systolic blood pressure 124 mm[Hg] Dora Sexton PA-C Work Phone: [facility] 02-05-2022 19:12-0400 Body temperature 98.4 [degF] Jj King MARKETING COMMUNICATIONS LEADER.SALES REPRESENTATIVE EDUCATION COURSES Work Phone: [facility] 02-05-2022 19:12-0400 Body weight 75.3 kg Jj Jhonny MARKETING COMMUNICATIONS LEADER.SALES REPRESENTATIVE EDUCATION COURSES Work Phone: [facility] 02-05-2022 19:12-0400 Diastolic blood pressure 86 mm[Hg] Jj King MARKETING COMMUNICATIONS LEADER.SALES REPRESENTATIVE EDUCATION COURSES Work Phone: [facility] 02-05-2022 19:12-0400 Heart rate 74 /min Jj King MARKETING COMMUNICATIONS LEADER.SALES REPRESENTATIVE EDUCATION COURSES Work Phone: [facility] 02-05-2022 19:12-0400 Respiratory rate 20 /min Jj Barry MARKETING COMMUNICATIONS LEADER.SALES REPRESENTATIVE EDUCATION COURSES Work Phone: [facility] 02-05-2022 19:12-0400 SaO2% (BldA) [Mass fraction] 99 % Jj King MARKETING COMMUNICATIONS LEADER.SALES REPRESENTATIVE EDUCATION COURSES Work Phone: [facility] 02-05-2022 19:12-0400 Systolic blood pressure 128 mm[Hg] Jj Barry MARKETING COMMUNICATIONS LEADER.SALES REPRESENTATIVE EDUCATION COURSES Work Phone: [facility] 01-19-2022 16:39-0400 Respiratory rate 18 /min [facility] Work Phone: 01-19-2022 16:27-0400 Body height 175.26 cm [facility] Work Phone: 01-19-2022 16:27-0400 Body mass index (BMI) [Ratio] 25.1 kg/m2 [facility] Work Phone: 01-19-2022 16:27-0400 Body temperature 98.6 [degF] [facility] Work Phone: 01-19-2022 16:27-0400 Body weight 77.11 kg [facility] Work Phone: 01-19-2022 16:27-0400 Diastolic blood pressure 91 mm[Hg] [facility] Work Phone: 01-19-2022 16:27-0400 Heart rate 88 /min [facility] Work Phone: 01-19-2022 16:27-0400 SaO2% (BldA) [Mass fraction] 100 % [facility] Work Phone: 01-19-2022 16:27-0400 Systolic blood pressure 131 mm[Hg] [facility] Work Phone: Encounters Encounter Date Encounter Type Care Provider Facility Start: 08-04-2024 End: 08-04-2024 Emergency department patient visit Madelyn Crain MD Work Phone: [facility] EMERGENCY [facility]PT Comment on above: Depression, unspecif ied depression type (Primary Dx) Start: 08-13-2023 End: 08-13-2023 ambulatory NIKITA SORENSEN Facility:[facility] Start: 08-13-2023 End: 08-13-2023 Patient encounter procedure Naty Gabby MARKETING COMMUNICATIONS LEADER.SALES REPRESENTATIVE EDUCATION COURSES Work Phone: [facility] Comment on above: Strep throat (Primar y Dx) Start: 07-25-2023 Refill Mare bateman MARKETING COMMUNICATIONS LEADER - SALES REPRESENTATIVE EDUCATION COURSES Work Phone: [facility] Start: 06-30-2023 Refill Mare bateman MARKETING COMMUNICATIONS LEADER - SALES REPRESENTATIVE EDUCATION COURSES Work Phone: [facility] Start: 05-25-2023 Refill Lanny Claudio MARKETING COMMUNICATIONS LEADER - SALES REPRESENTATIVE EDUCATION COURSES Work Phone: [facility] Start: 05-20-2023 End: 05-20-2023 Subsequent hospital visit by physician Nasrin Jaffe MD Work Phone: [facility] MAIN OR Comment on above: Mass of soft tissue of face (Primary Dx); Other specified soft tissue disorders Start: 05-02-2023 Telephone encounter Mare vargas MARKETING COMMUNICATIONS LEADER - SALES REPRESENTATIVE EDUCATION COURSES Work Phone: [facility] Comment on above: Results Start: 05-01-2023 End: 05-01-2023 Patient encounter procedure Mare Robb MARKETING COMMUNICATIONS LEADER - SALES REPRESENTATIVE EDUCATION COURSES Work Phone: [facility] Work Phone: Start: 05-01-2023 End: 05-01-2023 Periodic preventive med est patient 18-39 yrs Mare Robb MARKETING COMMUNICATIONS LEADER - SALES REPRESENTATIVE EDUCATION COURSES Work Phone: [facility] Comment on above: Annual physical exam (Primary Dx); Need for hepatitis C screening test; Screening for HIV (human immunodeficiency virus); Screening for lipid disorders Start: 04-30-2023 Telephone encounter Nasrin Jaffe MD Work Phone: [facility] Comment on above: Surgery Scheduling ( [facility]) Start: 04-30-2023 End: 04-30-2023 Office outpatient visit 15 minutes Edwina Delaney PA-C Work Phone: [facility] Comment on above: Mass of soft tissue of face (Primary Dx) Start: 04-25-2023 Refill Nikita Sorensen MD Work Phone: [facility] Start: 04-25-2023 Telephone encounter Nikita Angulo MD Work Phone: [facility] Comment on above: Release of Informati on Start: 04-19-2023 End: 04-19-2023 Emergency department patient visit [facility] Work Phone: Start: 10-24-2022 ambulatory [facility] Polanco RN [facility] Start: 10-24-2022 Patient encounter procedure [facility] Start: 10-21-2022 End: 10-21-2022 ambulatory NIKITA SORENSEN Facility:[facility] Start: 10-21-2022 End: 10-21-2022 Office outpatient visit 15 minutes Didier Kilgore MARKETING COMMUNICATIONS LEADER.SALES REPRESENTATIVE EDUCATION COURSES Work Phone: [facility] Comment on above: Sore throat (Primary Dx); Viral URI Start: 09-21-2022 End: 09-21-2022 ambulatory NIKITA SORENSEN Facility:[facility] Start: 09-21-2022 End: 09-21-2022 Patient encounter procedure Iain ALVAREZC Work Phone: [facility] Comment on above: Viral URI (Primary D x) Start: 04-29-2022 End: 04-29-2022 Office outpatient visit 15 minutes Dora Sexton PA-C Work Phone: [facility] Comment on above: Nausea (Primary Dx) Start: 02-05-2022 End: 02-05-2022 Patient encounter procedure Jj Barry APRN.SALES REPRESENTATIVE EDUCATION COURSES Work Phone: [facility] Comment on above: Rash (Primary Dx) Start: 01-19-2022 End: 01-19-2022 Emergency department patient visit [facility] Start: 06-07-2021 End: 06-07-2021 Subsequent hospital visit by physician Chetna Coburn MARKETING COMMUNICATIONS LEADER - SALES REPRESENTATIVE EDUCATION COURSES Work Phone: [facility] Comment on above: [...] Start: 05-19-2023 Lipid panel Mare Meghann vargas MARKETING COMMUNICATIONS LEADER - SALES REPRESENTATIVE EDUCATION COURSES Work Phone: Start: 05-19-2023 Transferase aspartat e amino ast sgot Marebernabe Strongenthal MARKETING COMMUNICATIONS LEADER - SALES REPRESENTATIVE EDUCATION COURSES Work Phone: Start: 05-19-2023 Lipid 1996 panel - S nan or Plasma Madleyn Crain MD Work Phone: Start: 05-01-2023 Adult depression scr eening assessment Mare Bridenthal MARKETING COMMUNICATIONS LEADER - SALES REPRESENTATIVE EDUCATION COURSES Work Phone: Start: 10-21-2022 STREP A MOLECULAR (POC) Naty Nagy MARKETING COMMUNICATIONS LEADER.SALES REPRESENTATIVE EDUCATION COURSES Work Phone: Start: 09-21-2022 STREP A MOLECULAR (POC) Iain Lobo PA-C Work Phone: Start: 04-29-2022 STREP A MOLECULAR (POC) Dora Sexton PA-C Work Phone: Start: 06-07-2021 Radiologic exam ches t 2 views Chetna Coburn MARKETING COMMUNICATIONS LEADER - SALES REPRESENTATIVE EDUCATION COURSES Work Phone: Plan of Treatment Date Care Activity Detail Author Start: 2064 RSV Immunization for Adults (1 - 1-dose 75+ series) RSV Immunization for Adults (1 - 1-dose 75+ series) [facility] Start: 2049 RSV Immunization aged 60 or older (1 - 1-dose 60+ series) RSV Immunization aged 60 or older (1 - 1-dose 60+ series) [facility] Start: 2039 Zoster Vaccines (1 of 2) Zoster Vaccines (1 of 2) [facility] Start: 05-19-2028 Lipid panel Lipid Panel [facility] Start: 05-03-2024 End: 05-03-2024 Patient encounter procedure 05/03/2024 8:00 AM EST Office Visit [facility] [address] [place] [address] Taeenthdarío Mare, MARKETING COMMUNICATIONS LEADER - SALES REPRESENTATIVE EDUCATION COURSES [address] [place] [address] [place] [address] [facility] Start: 05-01-2024 Depression Screening Depression Screening [facility] Start: 04-30-2024 End: 04-30-2024 Patient encounter procedure 04/30/2024 7:00 AM EDT Office Visit [facility] [address] [place] [address] [place] [address] Taeenthdaroí Mare, MARKETING COMMUNICATIONS LEADER - SALES REPRESENTATIVE EDUCATION COURSES [address] [place] [address] [place] [address] [facility] Start: 02-29-2024 COVID-19 Vaccine ( season) COVID-19 Vaccine () [facility] Start: 02-29-2024 Influenza vaccination Influenza Vaccine (#1) [facility] Start: 10-30-2023 Depression Monitoring Depression Monitoring [facility] Start: 07-16-2023 End: 07-16-2023 Patient encounter procedure 07/16/2023 10:30 AM EST Office Visit [facility] [address] [place] [address] [place] [phone] Edwina Delaney PA-C [address] [place] [id number] [facility] Start: 07-08-2023 End: 07-08-2023 Admission to same day surgery center 07/08/2023 7:30 AM EST - 07/08/2023 8:30 AM EST Surgery [facility] MAIN OR [address] [place] [phone] Nasrin Jaffe MD [address] [place] [id number] EXCISION OF SOFT TISSUE MASS OF THE RIGHT FOREHEAD WITH IMMEDIATE VERSUS COMPLEX CLOSURE [96633 (CPT )] [facility] MAIN OR Comment on above: EXCISION OF SOFT TISSUE MASS OF THE RIGH T FOREHEAD WITH IMMEDIATE VERSUS COMPLEX CLOSURE [99463 (CPT )] Start: 07-08-2023 End: 07-08-2023 Exc b9 les mrgn xcp sk tg f/e/e/n/l/m 1.1-2.0cm EXCISION BENIGN LESION FACE EARS EYELIDS NOSE LIPS MUCOUS MEMBRANES 1.1 TO 2.0 CM Other specified soft tissue disorders 07/08/2023 7:30 AM [facility] Operating Room Start: 07-08-2023 End: 07-08-2023 Repair complex f/c/c/m/n/ax/g/h/f 1.1-2.5 cm REPAIR COMPLEX WOUND OF FOREHEAD CHEEK CHIN MOUTH NECK AXILLAE GENITALIA HANDS FEET 1.1 TO 2.5 CM Other specified soft tissue disorders 07/08/2023 7:30 AM [facility] Operating Room Start: 07-08-2023 End: 07-08-2023 Repair intermediate f/e/e/n/l&/muc 2.5 cm/< REPAIR INTERMEDIATE WOUNDS OF FACE EARS EYELIDS NOSE LIPS MUCOUS MEMBRANES 2.5 CM OR LESS Other specified soft tissue disorders 07/08/2023 7:30 AM [facility] Operating Room Start: 07-08-2023 Subsequent hospital visit by physician 07/08/2023 7:30 AM [facility] Hospital Encounter [facility] MAIN OR [address] [place] [address] Nasrin Jaffe MD [address] [place] [id number] [facility] MAIN OR Start: 06-30-2023 Depression Assessment Depression Assessment [facility] Start: 06-01-2023 End: 05-02-2024 Alanine aminotransferase [Enzymatic activity/volume] in Serum or Plasma ALT Lab Routine Mixed hyperlipidemia Expected: 06/01/2023 (Approximate), Expires: 05/02/2024 [facility] Work Phone: Comment on above: Expected: 06/01/2023 (Approximate), Expi res: 05/02/2024 Start: 06-01-2023 End: 05-02-2024 Aspartate aminotransferase [Enzymatic activity/volume] in Serum or Plasma AST Lab Routine Mixed hyperlipidemia Expected: 06/01/2023 (Approximate), Expires: 05/02/2024 [facility] Comment on above: Expected: 06/01/2023 (Approximate), Expi res: 05/02/2024 Start: 06-01-2023 End: 05-02-2024 Lipid 1996 panel - Serum or Plasma Lipid panel Lab Routine Mixed hyperlipidemia Expected: 06/01/2023 (Approximate), Expires: 05/02/2024 [facility] Comment on above: Expected: 06/01/2023 (Approximate), Expi res: 05/02/2024 Start: 05-30-2023 End: 05-30-2023 Clinical Support 05/30/2023 8:00 AM EST Clinical Support [facility] [address] [place], [place] [phone] [facility] Start: 05-28-2023 End: 05-28-2023 Patient encounter procedure 05/28/2023 10:45 AM EST Office Visit [facility] [address] [place] [phone] Edwina Delaney PA-C [address] [place] [phone] [facility] Start: 05-20-2023 End: 05-20-2023 Admission to same day surgery center 05/20/2023 11:00 AM EST - 05/20/2023 12:00 PM EST Surgery [facility] MAIN OR [address] [place] [phone] Nasrin Jaffe MD [address] [place] [address] [address] [place], [place] [phone] EXCISION OF SOFT TISSUE MASS OF THE RIGHT FOREHEAD WITH IMMEDIATE VERSUS COMPLEX CLOSURE [61001 (CPT )] [facility] MAIN OR Comment on above: EXCISION OF SOFT TISSUE MASS OF THE RIGH T FOREHEAD WITH IMMEDIATE VERSUS COMPLEX CLOSURE [38336 (CPT )] Start: 05-20-2023 End: 05-20-2023 Anesthesia consultation 05/20/2023 11:00 AM EST Anesthesia Event [facility] MAIN OR [address] [facility] [place] [address] Josselyn Dobson RN [facility] MAIN OR Start: 05-20-2023 End: 05-20-2023 Exc [...] soft tissue disorders 05/20/2023 11:00 AM EST [facility] Operating Room Start: 05-20-2023 End: 05-20-2023 Repair intermediate f/e/e/n/l&/muc 2.5 cm/< REPAIR INTERMEDIATE WOUNDS OF FACE EARS EYELIDS NOSE LIPS MUCOUS MEMBRANES 2.5 CM OR LESS Other specified soft tissue disorders 05/20/2023 11:00 AM EST [facility] Operating Room Start: 05-20-2023 Subsequent hospital visit by physician 05/20/2023 11:00 AM EST Hospital Encounter [facility] MAIN OR [address] [place] [address] Nasrin Jaffe MD [address] [place] [id number] [facility] MAIN OR Start: 05-19-2023 End: 05-19-2023 Clinical Support 05/19/2023 7:30 AM EST Clinical Support [facility] [address] [place], [place] [phone] [facility] Start: 05-02-2023 Pneumococcal vaccination Pneumococcal Vaccine (2 of 2 - PCV) [facility] Start: 05-02-2023 Pneumococcal Vaccine: Pediatrics (0 to 5 Years) and At-Risk Patients (6 to 49 Years) (3 of 3 - PCV) Pneumococcal Vaccine: Pediatrics (0 to 5 Years) and At-Risk Patients (6 to 49 Years) (3 of 3 - PCV) [facility] Start: 05-02-2023 Pneumococcal Vaccine: Pediatrics (0 to 5 Years) and At-Risk Patients (6 to 64 Years) (3 - PCV) Pneumococcal Vaccine: Pediatrics (0 to 5 Years) and At-Risk Patients (6 to 64 Years) (3 - PCV) [facility] Start: 05-02-2023 Pneumococcal Vaccine: Pediatrics (0 to 5 Years) and At-Risk Patients (6 to 64 Years) (3 of 3 - PCV) Pneumococcal Vaccine: Pediatrics (0 to 5 Years) and At-Risk Patients (6 to 64 Years) (3 of 3 - PCV) [facility] Start: 05-01-2023 End: 05-01-2024 Comprehensive metabolic 1998 panel - Serum or Plasma Comprehensive metabolic panel Lab Routine Annual physical exam Expected: 05/01/2023 (Approximate), Expires: 05/01/2024 [facility] Comment on above: Expected: 05/01/2023 (Approximate), Expi res: 05/01/2024 Start: 05-01-2023 End: 05-01-2024 Hepatitis C virus Ab [Presence] in Serum or Plasma by Immunoassay Hepatitis C antibody Lab Routine Need for hepatitis C screening test Expected: 05/01/2023 (Approximate), Expires: 05/01/2024 [facility] Comment on above: Expected: 05/01/2023 (Approximate), Expi res: 05/01/2024 Start: 05-01-2023 End: 05-01-2024 HIV 1+2 Ab+HIV1 p24 Ag [Presence] in Serum or Plasma by Immunoassay HIV-1 and HIV-2 Antigen-Antibody Screen Lab Routine Screening for HIV (human immunodeficiency virus) Expected: 05/01/2023 (Approximate), Expires: 05/01/2024 [facility] Comment on above: Expected: 05/01/2023 (Approximate), Expi res: 05/01/2024 Start: 05-01-2023 End: 05-01-2024 Lipid 1996 panel - Serum or Plasma Lipid panel Lab Routine Annual physical exam Screening for lipid disorders Expected: 05/01/2023 (Approximate), Expires: 05/01/2024 [facility] Work Phone: Comment on above: Expected: 05/01/2023 (Approximate), Expi res: 05/01/2024 Start: 05-01-2023 End: 05-01-2023 Patient encounter procedure 05/01/2023 9:20 AM EDT Office Visit [facility] [address] [place] [address] [place] [address] Mare Robb, MARKETING COMMUNICATIONS LEADER - SALES REPRESENTATIVE EDUCATION COURSES [address] [place] [address] [place] [address] [facility] Start: 04-30-2023 End: 04-30-2023 Patient encounter procedure 04/30/2023 1:30 PM EDT Office Visit [facility] [address] [place] [address] [place] [phone] Edwina Delaney PA-C [address] [place] [address] [place] [address] [facility] Start: 04-19-2023 [facility] Start: 02-28-2023 Influenza vaccination [facility] Start: 10-25-2022 End: 10-25-2022 Patient encounter procedure 10/25/2022 Office Visit [facility] Mare Robb, MARKETING COMMUNICATIONS LEADER - SALES REPRESENTATIVE EDUCATION COURSES [address] [place] [address] [place] [address] [facility] Start: 06-30-2022 DEPRESSION ASSESSMENT DEPRESSION ASSESSMENT [facility] Start: 05-20-2022 Meningococcal (ACWY) vaccine (3 - Risk start 2-23 months series) [facility] Start: 02-28-2022 Influenza vaccination INFLUENZA (#1) [facility] Start: 06-30-2021 DEPRESSION ASSESSMENT DEPRESSION ASSESSMENT [facility] Start: 02-28-2021 Influenza vaccination Flu vaccine (#1) [facility] Start: 05-20-2018 Pneumococcal 0-64 years Vaccine (3 of 4 - PCV13) Pneumococcal 0-64 years Vaccine (3 of 4 - PCV13) [facility] Start: 07-15-2017 Hepatitis B Vaccine (3 of 3 - 3-dose series) Hepatitis B Vaccine (3 of 3 - 3-dose series) [facility] Start: 07-15-2017 Hepatitis B Vaccines (3 of 3 - 3-dose series) Hepatitis B Vaccines (3 of 3 - 3-dose series) [facility] Start: 07-15-2017 Hepatitis B Vaccines (4 of 4 - 4-dose series) Hepatitis B Vaccines (4 of 4 - 4-dose series) [facility] Start: 07-15-2017 Meningococcal Vaccine (2 - Risk 2-dose series) Meningococcal Vaccine (2 - Risk 2-dose series) [facility] Start: 2008 Urine microalbumin profile DTAP,TDAP,TD (1 - Tdap) [facility] Start: 2008 Zoster Vaccines (1 of 2) Zoster Vaccines (1 of 2) [facility] Start: 2007 HEPATITIS C SCREENING HEPATITIS C SCREENING [facility] Start: 2007 Hepatitis C screening Hepatitis C Screening [facility] Start: 2007 HIV SCREENING HIV SCREENING [facility] Start: 2007 HIV screening HIV Screening [facility] Start: 2004 HIV screening HIV screen [facility] Start: 2002 Varicella vaccination Varicella Vaccines (1 of 2 - 13+ 2-dose series) [facility] Start: 03-17-2002 Varicella vaccination Varicella Vaccines (1 of 2 - 2-dose childhood series) [facility] Start: 2001 Adult depression screening assessment DEPRESSION SCREENING [facility] Start: 2001 COVID-19 Vaccine (1) COVID-19 Vaccine (1) [facility] Start: 2000 DTaP/Tdap/Td vaccine (6 - Tdap) DTaP/Tdap/Td vaccine (6 - Tdap) [facility] Start: 2000 DTaP/Tdap/Td Vaccines (6 - Tdap) DTaP/Tdap/Td Vaccines (6 - Tdap) [facility] Start: 2000 Urine microalbumin profile DTaP,Tdap,Td Vaccine (6 - Tdap) [facility] Start: 1999 Meningococcal B vaccine (1 of 4 - Increased Risk Bexsero 2-dose series) Meningococcal B vaccine (1 of 4 - Increased Risk Bexsero 2-dose series) [facility] Start: 1999 Meningococcal B Vaccine (1 of 4 - Increased Risk) Meningococcal B Vaccine (1 of 4 - Increased Risk) [facility] Start: 1995 PNEUMOCOCCAL (1 - PCV) PNEUMOCOCCAL (1 - PCV) [facility] Start: 09-11-1990 Hib vaccine (1 of 1 - Risk 1-dose series) Hib vaccine (1 of 1 - Risk 1-dose series) [facility] Start: 09-11-1990 HIB Vaccines (1 of 1 - Risk 1-dose series) HIB Vaccines (1 of 1 - Risk 1-dose series) [facility] Start: 1989 COVID-19 VACCINE (#1) COVID-19 VACCINE (#1) [facility] Start: 1989 HEPATITIS B (1 of 3 - 3-dose series) HEPATITIS B (1 of 3 - 3-dose series) [facility] Start: 1989 Hepatitis C screening Hepatitis C screen [facility] Start: 1989 HIV screening HIV Screening [facility] Patient Education [facility] Work Phone: Patient referral [facility] Work Phone: Tissue exam [facility] Work Phone: Comment on above: Release Upon Ordering for 1 Occurrences starting 05/20/2023 Immunizations Immunization Date Immunization Notes Care Provider Beck melendez 05-02-2022 pneumococcal polysaccharide vaccine, 23 valent Malena Polanco RN [facility] 04-12-2019 influenza, injectabl e, quadrivalent, preservative free [facility] MARKETING COMMUNICATIONS LEADER - SALES REPRESENTATIVE EDUCATION COURSES Work Phone: [facility] Work Phone: 04-12-2019 influenza virus vacc ine, unspecified formulation Malena Polanco RN [facility] 05-20-2017 hepatitis B vaccine, adult dosage [facility] MARKETING COMMUNICATIONS LEADER - SALES REPRESENTATIVE EDUCATION COURSES Work Phone: [facility] Work Phone: 05-20-2017 influenza virus vacc ine, unspecified formulation [facility] Work Phone: [facility] Work Phone: 05-20-2017 influenza, injectabl e, quadrivalent, contains preservative Malena Polanco RN [facility] 05-20-2017 Influenza, Quadv, 6 mo and older, IM (Fluzone, Flulaval) [facility] Work Phone: [facility] 05-20-2017 meningococcal oligosaccharide (groups A, C, Y and W-135) diphtheria toxoid conjugate vaccine (MCV4O) [facility] Work Phone: [facility] Work Phone: 05-20-2017 pneumococcal polysaccharide vaccine, 23 valent [facility] Work Phone: [facility] Work Phone: 05-20-2017 meningococcal vaccin e of unknown formulation and unknown serogroups [facility] Work Phone: [facility] Work Phone: 05-20-2016 hepatitis B vaccine, unspecified formulation [facility] Work Phone: [facility] Work Phone: 05-20-2016 meningococcal polysaccharide (groups A, C, Y and W-135) diphtheria toxoid conjugate vaccine (MCV4P) [facility] Work Phone: [facility] Work Phone: 05-20-2016 pneumococcal polysaccharide vaccine, 23 valent [facility] Work Phone: [facility] 05-31-2015 meningococcal polysaccharide (groups A, C, Y and W-135) diphtheria toxoid conjugate vaccine (MCV4P) [facility] Work Phone: [facility] Work Phone: 05-31-2015 pneumococcal polysaccharide vaccine, 23 valent [facility] Work Phone: [facility] Work Phone: 05-28-2015 influenza, injectabl e, quadrivalent, preservative free Chetna Coburn APRN - [facility] Work Phone: [facility] Work Phone: 02-17-2002 measles, mumps and rubella virus vaccine Chetna Coburn APRN - [facility] Work Phone: [facility] Work Phone: 02-18-1995 diphtheria, tetanus toxoids and acellular pertussis vaccine, unspecified formulation Chetna Coburn APRN - [facility] Work Phone: [facility] Work Phone: 02-18-1995 trivalent poliovirus vaccine, live, oral Chetna Coburn APRN - [facility] Work Phone: [facility] Work Phone: 12-21-1990 diphtheria, tetanus toxoids and pertussis vaccine Chetna Coburn APRN - [facility] Work Phone: [facility] Work Phone: 12-21-1990 measles, mumps and rubella virus vaccine Chetna Coburn APRN - [facility] Work Phone: [facility] Work Phone: 12-21-1990 trivalent poliovirus vaccine, live, oral Chetna Coburn APRN - [facility] Work Phone: [facility] Work Phone: 07-09-1990 haemophilus influenz ae type b vaccine, conjugate unspecified formulation Chetna Coburn APRN [facility] Work Phone: [facility] Work Phone: 07-09-1990 hepatitis B vaccine, pediatric or pediatric/adolescent dosage Chetna Coburn APRN - [facility] Work Phone: [facility] Work Phone: 03-03-1990 diphtheria, tetanus toxoids and pertussis vaccine Chetna Coburn APRN - [facility] Work Phone: [facility] Work Phone: 1989 diphtheria, tetanus toxoids and pertussis vaccine Chetna Coburn MARKETING COMMUNICATIONS LEADER - SALES REPRESENTATIVE EDUCATION COURSES Work Phone: [facility] Work Phone: 1989 trivalent poliovirus vaccine, live, oral Chetna Coburn MARKETING COMMUNICATIONS LEADER - SALES REPRESENTATIVE EDUCATION COURSES Work Phone: [facility] Work Phone: 1989 diphtheria, tetanus toxoids and pertussis vaccine Chetna Coburn MARKETING COMMUNICATIONS LEADER - SALES REPRESENTATIVE EDUCATION COURSES Work Phone: [facility] Work Phone: 1989 trivalent poliovirus vaccine, live, oral Chetna oCburn MARKETING COMMUNICATIONS LEADER - SALES REPRESENTATIVE EDUCATION COURSES Work Phone: [facility] Work Phone: Payers Date Payer Category Payer Commercial Managed C [facility] - [facility] [employer] [id number] 2023 Unknown [id number] 2023 Unknown [id number] 2022 Medicaid [id number] 2020 Medicaid [id number] 2018 Unknown [employer] [id number] 2018-Present [phone] [address] [place] [address] [id number] Self-pay SELF PAY INSURANCE [id number] Unknown [id number] Unknown [id number] Social History Date Type Detail Facility Start: 06-05-2015 End: 05-02-2022 Tobacco smoking status NHIS Ex-smoker [facility] Phone: End: 05-19-2015 History of tobacco use Current smoker [facility] Phone: Start: 06-05-2015 End: 05-02-2022 Tobacco use and exposure Smokeless tobacco non-user [facility] Phone: Start: 10-18-2019 End: 04-30-2023 Alcohol intake Current non-drinker of alcohol (finding) [facility] Phone: Start: 10-18-2019 End: 05-01-2023 Alcohol intake [facility] Phone: Start: 1990 Sex Assigned At Not on file [facility] Phone: Start: 01-19-2022 End: 04-19-2023 Tobacco smoking status [facility] Unknown if ever smoked [facility] Start: 06-18-2021 Occasional [facility] Start: 06-18-2021 None [facility] Start: 06-18-2021 Cigarettes [facility] Start: 1990 Sex Assigned At Male S [facility] Start: 01-29-2012 Tobacco smoking stat us AZIS Smokes tobacco daily [facility] Start: 02-05-2022 End: 08-13-2023 Alcohol intake Not Asked [facility] End: 05-19-2015 History of tobacco use Cigarette Smoker [facility] Start: 06-18-2022 End: 05-01-2023 Tobacco use panel [facility] Start: 05-01-2022 Gender identity Identifies as male gender (finding) [facility] Start: 05-01-2022 Sexual orientation Heterosexual (juan refugio) [facility] Start: 05-01-2023 End: 08-04-2024 Alcohol intake [...] the mortgage or rent on time? No [facility] Start: 05-01-2023 Alcohol Comment Use to drink [facility] How often to you hav e a drink containing alcohol? 4 or more times a week [facility] How many standard drinks containing alcohol do you have on a typical day? 1 or 2 [facility] Start: 01-28-2022 Sex Male (finding) [facility] chris Clinical Notes 02-05-2022 to 08-04-2024 Jimmy Flood RN - 08/04/2024 4:28 AM Дмитрий Flood RN - 08/04/2024 4:28 AM Дмитрий Flood RN - 08/04/2024 4:26 AM ESTParas Pope - 08/04/2024 3:19 AM ESTDischarge Instructions Note Date & Type Note Facility 08-04-2024 Emergency department Note Complete report provided. To [facility]. [facility] 08-04-2024 Emergency department Note Complete report provided. To [facility]. A/ox3. Independent to stretcher. Discharged to [facility]. Belongings set with ems transport. Luzma Kapoor [...] presents with Suicidal Patient was sent from [facility] for medical clearance. Patient is depressed. Patient [...] COVID 04/2021 Eczema IBS (irritable bowel syndrome) Crenshaw exposure MRSA (methicillin resistant staph aureus) culture positive Substance abuse ([facility]) ([facility]) SURGICAL HISTORY Past Surgical History: Procedure Laterality [...] grade. . Her biological mom lives in [place]. No significant other right now. Has 2 [...] Abnormal ETHANOL IN SER/PLAS 274 (*) Narrative: RADIO SCRIPT WRITER depression is seen >100 mg/dL. NOTE: This [...] Culture. Procedure Abnormality Status --------- ------ Complete Urinalysis[[id number]] Abnormal Final result Please view results for [...] use. Patient medically cleared for discharge to [facility] for further psychiatric evaluation. Diagnoses as of [...] 08/04/2024 6:10 AM EST Emergency Department Encounter [facility] EMERGENCY DEPT Patient: Neal Larios : 1990 [...] emergency department for depression. Patient sent from [facility] for medical clearance. Patient presented there with his mother who has been worried about him. He states he had some social issues ongoing with his ex partner. Denies any abuse. Denies hallucinations alcohol drug use homicidal thoughts. Apparently at [facility] he endorsed SI but denies that here. Denies prior attempts. States he is not on any psychiatric medications but he was given Ativan and hydroxyzine reportedly at [facility]. He lives at home with his 10-year-old [...] for clarification.) Madelyn Crain MD [facility] Madelyn Crain MD 08/04/24 0141 Patient was sent from [facility] for medical clearance. Patient is depressed. Patient denies SI to RN. Patient told P[facility] that he is SI. documented in this encounter [facility] 08-04-2024 Emergency department Note A/ox3. Independent to stretcher. Discharged to [facility]. Belongings set with ems transport. [facility] 08-04-2024 Emergency department Note Luzma Kapoor at bedside obtaining vitals. [facility] 08-04-2024 Emergency department Note CHRISTO Fox giving patient warm blanket for comfort. [facility] 08-04-2024 Emergency department Note EKG at patient bedside. [facility] 08-04-[address] Tellez at patient bedside. [facility] 08-04-2024 Emergency department Note Pt changed into 2 gowns and wanded by officer. Pt has 1 belonging bag. with pt in [address]. [facility] 08-04-2024 Emergency department Triage note Patient was sent from [facility] for medical clearance. Patient is depressed. Patient denies SI to RN. Patient told PES that he is SI. [facility] 02-05-2025 Note Patient was sent fro [facility] for medical [facility]. Patient is depressed. Patient denies SI to RN. Patient told PES that he is SI. [facility] 08-04-2024 Physician Emergency department Note EMERGENCY DEPARTMENT [...] for the entirety of this encounter. HPI Nela Larios is a 34 y.o. who presents [...] COVID 04/2021 Eczema IBS (irritable bowel syndrome) Crenshaw exposure MRSA (methicillin resistant staph aureus) culture positive Substance abuse ([facility]) ([facility]) SURGICAL HISTORY Past Surgical History: Procedure Laterality [...] grade. . Her biological mom lives in [place]. No significant other right now. Has 2 [...] Abnormal ETHANOL IN SER/PLAS 274 (*) Narrative: RADIO SCRIPT WRITER depression is seen >100 mg/dL. NOTE: This [...] Culture. Procedure Abnormality Status --------- ------ Complete Urinalysis[[id number]] Abnormal Final result Please view results for [...] use. Patient medically cleared for discharge to [facility] for further psychiatric evaluation. Diagnoses as of [...] Crain MD at 08/04/2024 6:10 AM EST [facility] 08-04-2024 Physician Emergency department Note Emergency Department [...] emergency department for depression. Patient sent from [facility] for medical clearance. Patient presented there [...] for clarification.) Madelyn Crain MD [facility] Madelyn Crain MD 08/04/24 0141 S B E Phone: 08-13-2023 Note HNO ID: [id number] Author: NATY NAGY APRN.SALES REPRESENTATIVE EDUCATION COURSES Service: ? Author Type: Nurse Practitioner Type: [...] (attention deficit hyperactivity disorder) Bipolar 1 disorder ([facility]) Eczema Hx MRSA infection IBS (irritable bowel syndrome) Substance abuse ([facility]) No past surgical history on file. ALLERGIES [...] tenderness or frontal sinus tenderness. Mouth/Throat: Lips: [place]. No lesions. Mouth: Mucous membranes are moist. [...] Left conjunctiva i (more content not included)... [facility] 08-13-2023 History of Presen t illness Narrative This note was created using [employer]. Subjective Annamarie Larios is a 33 year [...] (attention deficit hyperactivity disorder) Bipolar 1 disorder ([facility]) Eczema Hx MRSA infection IBS (irritable bowel syndrome) Substance abuse ([facility]) No past surgical history on file. ALLERGIES [...] tenderness or frontal sinus tenderness. Mouth/Throat: Lips: [place]. No lesions. Mouth: Mucous membranes are moist. [...] BP 142/86 Temp 101.5. Patient had caffeine RESPIRATORY PRACTITIONER and I never have that stuff - [...] for 24 hours Karon Blum TEACHING PROVIDER (Physician/PA/MARKETING COMMUNICATIONS LEADER) NOTE OF PERSONAL INVOLVEMENT IN CARE: I have personally seen and examined the patient and performed the medical decision-making components. I have reviewed the Advanced Practice Registered Nurse (MARKETING COMMUNICATIONS LEADER) Student's documentation and verified the findings in the note as written. Any additions or changes are noted in bold/italics. Signature: Naty Nagy Date: 08/14/2023 Time: 9:40 AM documented in this encounter [facility] 07-25-2023 Telephone encounter Note Rx sent. Follow up as scheduled. [facility] 07-25-2023 Miscellaneous Notes Rx sent. Follow up as scheduled. Prescription Request: Last medication check: 10/25/22 Last physical exam: 05/01/23 Next scheduled appointment: 05/03/24 Last date of refill on this medication 07/01/23 documented in this encounter [facility] 07-25-2023 Telephone encounter Note Prescription Request: Last medication check: 10/25/22 Last physical exam: 05/01/23 Next scheduled appointment: 05/03/24 Last date of refill on this medication 07/01/23 [facility] 07-01-2023 [facility] Miscellaneous Notes Revie Prescription Request: Last medication check: none Last physical exam: 05/01/23 Next scheduled appointment: 05/03/24 Last date of refill on this medication 05/26/23 30 day no refill documented in this encounter [facility] 07-01-2023 Telephone encounter Note Prescription Request: Last medication check: none Last physical exam: 05/01/23 Next scheduled appointment: 05/03/24 Last date of refill on this medication 05/26/23 30 day no refill [facility] 05-26-2023 Miscellaneous Notes Prescription Request: Last medication check: none Last physical exam: 05/01/23 Next scheduled appointment: 05/23/24 Last date of refill on this medication 04/25/23 30 day no refill documented in this encounter [facility] 05-26-2023 Telephone encounter Note [facility] 05-26-2023 Telephone encounter Note Prescription Request: Last medication check: none Last physical exam: 05/01/23 Next scheduled appointment: 05/23/24 Last date of refill on this medication 04/25/23 30 day no refill [facility] 05-20-2023 Telephone encounter Note Noted [facility] 05-20-2023 Miscellaneous Notes Noted Notified, scheduled, orders [...] starting cholesterol medication documented in this encounter [facility] 05-20-2023 History and physical note Images from the original note were not included. [facility] [address] [place] [id number] Dept: [phone] Dept Patient Name: Annamarie Larios Date: 05/20/23 [...] hyperactivity disorder) Eczema IBS (irritable bowel syndrome) Crenshaw exposure MRSA (methicillin resistant staph aureus) culture positive Substance abuse ([facility]) ([facility]) Past Surgical History: Surgical History Past Surgical [...] under local anesthesia as an outpatient at [facility]. The orders are in. -The risks, benefits and options were discussed with the pt. The risks included but not limited to pain, bleeding, infection, heavy scarring, damage to surrounding structures, fluid collections, asymmetry, and need for further procedures. All of His questions were answered to their satisfaction and He agrees to proceed with the procedure. [facility] Phone: 05-20-2023 History and physical note Images from the original note were not included. [facility] [address] [place] [address] Dept: [phone] Dept Patient Name: Annamarie Larios Date: 05/20/23 [...] hyperactivity disorder) Eczema IBS (irritable bowel syndrome) Crenshaw exposure MRSA (methicillin resistant staph aureus) culture positive Substance abuse ([facility]) ([facility]) Past Surgical History: Surgical History Past Surgical [...] under local anesthesia as an outpatient at [facility]. The orders are in. -The risks, benefits and options were discussed with the pt. The risks included but not limited to pain, bleeding, infection, heavy scarring, damage to surrounding structures, fluid collections, asymmetry, and need for further procedures. All of His questions were answered to their satisfaction and He agrees to proceed with the procedure. documented in this encounter [facility] 05-20-2023 Miscellaneous Notes Patient ambulated in hallway [...] at bedside with patient. 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 Sindhu Espinosa MD Procedure Summary Anesthesia: Choice ASA: II Estimated Blood Loss: 2 mL Total IV Fluids: 200 for the mL Drains: * None in log * Specimens ID Source Type Tests Collected By Collected At [facility]? Priority Lab ID 1 Forehead Tissue TISSUE EXAM Nasrin Jaffe MD 05/20/23 1203 No [id number] Description: FOREHEAD SOFT TISSUE Staff: Second Mate: Isadora Rico RN Relief Second Mate: Neelam Farooq RN Scrub Person: Jenny Meade RN Sugical Director Of Mechanical Engineering Student: Xi Guerrero Indications: Neal Larios is [...] voice recognition software. documented in this encounter [facility] 05-20-2023 Note Formatting of this n ote [...] All belongings taken with patient on discharge. [facility] 05-20-2023 Note Formatting of this n ote [...] All belongings taken with patient on discharge. [facility] 05-20-2023 Note Formatting of this n ote might be different from the original. Family/visitor updated and at bedside with patient. [facility] 05-20-2023 Note Formatting of this n ote might be different from the original. Family/visitor updated and at bedside with patient. [facility] 05-20-2023 Hospital Discharg e instructions Sindhu Espinosa [...] office with questions/concerns. documented in this encounter [facility] 05-20-2023 Note Formatting of this n ote is different from the original. 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 Sindhu Espinosa MD Procedure Summary Anesthesia: Choice ASA: II Estimated Blood Loss: 2 mL Total IV Fluids: 200 for the mL Drains: * None in log * Specimens ID Source Type Tests Collected By Collected At Frozen? Priority Lab ID 1 Forehead Tissue TISSUE EXAM Nasrin Jaffe MD 05/20/23 1203 No [id number] Description: FOREHEAD SOFT TISSUE Staff: Second Mate: Isadora Rico RN Relief Second Mate: Neelam Farooq RN Scrub Person: Jenny Meade RN Sugical Director Of Mechanical Engineering Student: Xi Guerrero Indications: Neal Larios is [...] was partially dictated using voice recognition software. [facility] 05-20-2023 Note Formatting of this n ote is different from the original. 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 Sindhu Espinosa MD Procedure Summary Anesthesia: Choice ASA: II Estimated Blood Loss: 2 mL Total IV Fluids: 200 for the mL Drains: * None in log * Specimens ID Source Type Tests Collected By Collected At [facility]? Priority Lab ID 1 Forehead Tissue TISSUE EXAM Nasrin Jaffe MD 05/20/23 1203 No [id number] Description: FOREHEAD SOFT TISSUE Staff: Second Mate: Isadora Rico RN Relief Second Mate: Neelam Farooq RN Scrub Person: Jenny Meade RN Sugical Director Of Mechanical Engineering Student: Xi Guerrero Indications: Neal Larios is [...] was partially dictated using voice recognition software. [facility] 05-02-2023 Telephone encounter Note Notified, scheduled, orders pended. [facility] 05-02-2023 Telephone encounter Note ----- Message from [...] still elevated would recommend starting cholesterol medication [facility] 05-02-2023 Miscellaneous Notes Notified, scheduled, orders pended. [...] starting cholesterol medication documented in this encounter [facility] 05-01-2023 History of Presen t illness Narrative [...] well. Work is doing well at the [employer]- 6.5 years. . Has scheduled with plastic [...] 05/01/2023 1:54 PM documented in this encounter [facility] 04-30-2023 Telephone encounter Note Case# [id number] Procedure: excision soft tissue mass of the right forehead intermediate versus complex closure Sx Date: 05/20/23 Time: 1 HOUR Location: [facility] 2 PM Anesthesia: GENERAL OR MAC CPT: [id number] ICD-10: M79.89 Special Equipment: PAT: SAME DAY HP PCNR PER PRE CERT TOOL ON AVAILITY [facility] 04-30-2023 Miscellaneous Notes Case# [id number] Procedure: excision soft tissue mass of the right forehead intermediate versus complex closure Sx Date: 05/20/23 Time: 1 HOUR Location: [facility] 2 PM Anesthesia: GENERAL OR MAC CPT: [id number] ICD-10: M79.89 Special Equipment: PAT: SAME DAY HP PCNR PER PRE CERT TOOL ON AVAILITY ----- Message from Edwina Delaney PA-C sent at 04/30/2023 1:55 PM EDT ----- Stefania, This patient is to be scheduled for excision soft tissue mass of the right forehead intermediate versus complex closure under local anesthesia an outpatient at [facility]. We will need 1 hour. Thank you Edwina East PA-C documented in this encounter [facility] 04-30-2023 Telephone encounter Note ----- Message from Edwina Delaney PA-C sent at 04/30/2023 1:55 PM EDT ----- Stefania, This patient is to be scheduled for excision soft tissue mass of the right forehead intermediate versus complex closure under local anesthesia an outpatient at [facility]. We will need 1 hour. Thank you Edwina East PA-C [facility] 04-30-2023 History of Presen t illness Narrative [...] hyperactivity disorder) Eczema IBS (irritable bowel syndrome) Crenshaw exposure MRSA (methicillin resistant staph aureus) culture positive Substance abuse ([facility]) ([facility]) Past Surgical History: Past Surgical History: Procedure [...] under local anesthesia as an outpatient at [facility]. The orders are in. -The risks, benefits [...] Edwina East PA-C documented in this encounter [facility] 04-28-2023 Telephone encounter Note Scheduled. [facility] 04-28-2023 Miscellaneous Notes Scheduled. Images from the [...] with 5 refills documented in this encounter [facility] 04-25-2023 Telephone encounter Note Message released to patient as written. Patient Verbalized Understanding Patient's further questions if applicable: None Patient is scheduled for Physical Were all questions from office addressed or relayed to the patient from encounter: Yes [facility] 04-25-2023 Miscellaneous Notes Message released to patient as written. Patient Verbalized Understanding Patient's further questions if applicable: None Patient is scheduled for Physical Were all questions from office addressed or relayed to the patient from encounter: Yes documented in this encounter [facility] 04-25-2023 Telephone encounter Note Images from the original note were not included. KEYONA Parker CNP 04/25/23 11:50 AM Note Rx sent with no refills. Due for annual physical next month- please schedule. Left a message to return call. [facility] 04-25-2023 Miscellaneous Notes Images from the original [...] with 5 refills documented in this encounter [facility] 04-25-2023 Telephone encounter Note Rx sent with no refills. Due for annual physical next month- please schedule. [facility] 04-25-2023 Telephone encounter Note Prescription Request: Last medication check: 04/12/19 Last physical exam: 05/02/22 Next scheduled appointment: none Last date of refill on this medication 05/02/22 60 with 5 refills [facility] 10-24-2022 Telephone encounter Note Patient cannot make it in during any of your openings today and will keep scheduled appointment tomorrow. [facility] 10-24-2022 Miscellaneous Notes Patient cannot make it [...] to get a hold of dentist in [place]. Face is not as swollen as it [...] Toothache present > 24 hours Protocols used: [id number] 3/10 pain, wants to get infection taken care of and requesting antibiotic or if he needs seen. Root canal 3-4 months ago on that tooth and assuming unsuccessful documented in this encounter [facility] 10-24-2022 Telephone encounter Note He will need to be seen in office. [facility] Work Phone: 10-24-2022 Telephone encounter Note S: [...] to get a hold of dentist in [place]. Face is not as swollen as it was before he drained the abscess. He is asking for antibiotic to be called to his pharmacy R: Appointment scheduled 10/25/22 at 0840 with Jacobo oRbb, if prescription can be called in, he [...] Toothache present > 24 hours Protocols used: [id number]-LZSZF-VV 3/10 pain, wants to get infection taken care of and requesting antibiotic or if he needs seen. Root canal 3-4 months ago on that tooth and assuming unsuccessful [facility] 10-21-2022 Note HNO ID: [id number] Author: Didier Kilgore APRN.[facility] Service: ? Author Type: Nurse Practitioner [...] (attention deficit hyperactivity disorder) Bipolar 1 disorder ([facility]) Eczema Hx MRSA infection IBS (irritable bowel syndrome) Substance abuse ([facility]) No past surgical history on file. ALLERGIES [...] swelling or pain on movement. Mouth/Throat: Lips: [place]. Mouth: Mucous membranes are moist. Pharynx: Oropharynx [...] of care. This note was generated using City BeBe software. It may contain errors in wording, punctuation, or spelling. Didier Kilgore APRN.[facility] 10-21-2022 History of Presen t illness Narrative [...] swelling or pain on movement. Mouth/Throat: Lips: [place]. Mouth: Mucous membranes are moist. Pharynx: Oropharynx [...] of care. This note was generated using City BeBe software. It may contain errors in wording, punctuation, or spelling. Didier Kilgore APRN.[facility] documented in this encounter [facility] 09-21-2022 Note HNO ID: [id number] Author: Iain Lobo PA-C Service: ? Author Type: Physician Psychiatric Therapist Type: Progress Notes Filed: 09/21/2022 10:31 AM Note Text: This note was created using Exanet. Subjective Annamarie Larios is a 32 year [...] (attention deficit hyperactivity disorder) Bipolar 1 disorder ([facility]) Eczema Hx MRSA infection IBS (irritable bowel syndrome) Substance abuse ([facility]) Current Outpatient Medications Medication Sig Dispense Refill [...] STREP A MOLECULAR (POC) Iain Lobo PA-C [facility] 09-21-2022 History of Presen t illness Narrative This note was created using Vibrant Energyriter. Subjective Annamarie Larios is a 32 year [...] (attention deficit hyperactivity disorder) Bipolar 1 disorder ([facility]) Eczema Hx MRSA infection IBS (irritable bowel syndrome) Substance abuse ([facility]) Current Outpatient Medications Medication Sig Dispense Refill [...] Iain Lobo PA-C documented in this encounter [facility] 04-29-2022 History of Presen t illness [...] infection IBS (irritable bowel syndrome) Substance abuse ([facility]) ALLERGIES Cephlasporins [Cephalosporins] and Penicillins MEDICATIONS Current [...] Dora Sexton PA-C documented in this encounter [facility] 02-05-2022 History of Presen t illness [...] infection IBS (irritable bowel syndrome) Substance abuse ([facility]) No past surgical history on file. ALLERGIES [...] TOPICAL CREAM Agrees to plan Jj Barry APRN.[employer] REPRESENTATIVE EDUCATION COURSES documented in this encounter [facility] Evaluation note Diagnosis COVID-19 documented in this encounter [facility] Work Phone: Evaluation noteNo assessment information available [facility] Work Phone: Evaluation note* Diagnosis Rash- Primary Rash and other nonspecific skin eruption [facility] Diagnosis Nausea- Primary Nausea alone [facility] Diagnosis Viral URI- Primary Acute upper respiratory infections of unspecified site [facility] Diagnosis Sore throat- Primary Acute pharyngitis Viral URI Acute upper respiratory infections of unspecified site [facility] Diagnosis Mass of soft tissue of face- Primary Other specified soft tissue disorders [facility] Diagnosis Annual physical exam- Primary Routine general medical examination at a health care facility Need for hepatitis C screening test Special screening examination for other specified viral diseases Screening for HIV (human immunodeficiency virus) Special screening examination for other specified viral diseases Screening for lipid disorders Other specified soft tissue disorders documented in this encounter [facility]* Diagnosis Mixed hyperlipidemia- Primary Other specified soft tissue disorders [facility] Diagnosis Mass of soft tissue of face- Primary Other specified soft tissue disorders documented in this encounter [facility]* Diagnosis Mixed hyperlipidemia- Primary documented in this encounter [facility] note* Diagnosis Strep throat- Primary Streptococcal sore throat documented in this encounter [facility] note* Diagnosis Annual physical exam- [...] depression type- Primary documented in this encounter [facility] Discharge instructions Additional Instructions Follow-up with your PCP and return for any worsening of your symptoms.[facility] Work Phone: Summary Purpose Family History No Family History Records FoundNo Family History Records FoundNo Family History Records FoundNo Family History Records FoundNo Family History Records Found Advance Directives No Advanced Directives Records FoundDocuments on File Type Date Recorded Patient Stake Driver Expl anation ACP-Advance Directive ACP-Power of Crossing Tender Advance Directive Response Recorded Date/ Time Living Will No January 19, 2022 4:45pm Power of Crossing Tender No January 19 4:45pm Advance Directive Response Recorded Date/ Time Living Will No April 19 6:31pm Power of Crossing Tender No April 19, 2023 6:31pm Latest Code [...] section and content) DATE CREATED AUTHOR 02/22/2019 [facility] DATE CREATED AUTHOR AUTHOR'S ORGANIZ ATION 06/15/2021 [facility] DATE CREATED AUTHOR AUTHOR'S ORGANIZ ATION 01/29/2022 [facility] DATE CREATED AUTHOR AUTHOR'S ORGANIZ ATION 08/15/2023 [facility] DATE CREATED AUTHOR AUTHOR'S ORGANIZ ATION 08/06/2024 [facility] Teams (unrecognized sec tion and content) Yarn Polishing Machine Operator Relationship Specialty Start Date End Date Nikita Sorensen MD [address] [place] [address] PCP - General Family Medicine 06/05/15 Yarn Polishing Machine Operator Relationship Specialty Start Date End Date Nikita Sorensen [address] [place] [address] PCP - General Family Practice 01/29/12 Yarn Polishing Machine Operator Relationship Specialty Start Date End Date Nikita Sorensen [address] [place] [address] PCP - General Family Medicine 01/29/12 Yarn Polishing Machine Operator Relationship Specialty Start Date End Date Nikita Sorensen [address] [place] [address] PCP - General Family Medicine 01/29/12 Yarn Polishing Machine Operator Relationship Specialty Start Date End Date Nikita Sorensen [address] [place] [address] PCP - General Family Medicine 01/29/12 Yarn Polishing Machine Operator Relationship Specialty Start Date End Date Nikita Sorensen MD [address] [place] [address] PCP - General 06/05/15 Team Status: Active Member Role Status Dates Dr. Nikita Sorensen MD Family Provider Active Dr. Nikita Sorensen MD Primary Care Provider Active Team Status: Inactive Member Role Status Dates Dr. Nikita Sorensen MD Primary Care Provider Active Jero Mancia MD Emergency Provider Active Yarn Polishing Machine Operator Relationship Specialty Start Date End Date Nikita S[facility]nsen [facility] [address] [facility] [place] [address] PCP - General 06/05/15 Yarn Polishing Machine Operator Relationship Specialty Start Date End Date Nikita Sorensen MD [address] [facility] [place] [address] PCP - General 06/05/15 Yarn Polishing Machine Operator Relationship Specialty Start Date End Date Nikita Sorensen MD [address] [facility] [place] [address] PCP - General 06/05/15 Yarn Polishing Machine Operator Relationship Specialty Start Date End Date Nikita Sorensen MD [address] [facility] [place] [address] PCP - General 06/05/15 Yarn Polishing Machine Operator Relationship Specialty Start Date End Date Nikita Sorensen MD [address] [facility] [place] [address] PCP - General 06/05/15 Yarn Polishing Machine Operator Relationship Specialty Start Date End Date Nikita Sorensen MD [address] [facility] [place] [address] PCP - General 06/05/15 Yarn Polishing Machine Operator Relationship Specialty Start Date End Date Nikita Sorensen MD [address] [facility] [place] [address] PCP - General 06/05/15 Yarn Polishing Machine Operator Relationship Specialty Start Date End Date Nikita Sorensen MD [address] [facility] [place] [address] PCP - General 06/05/15 Yarn Polishing Machine Operator Relationship Specialty Start Date End Date Nikita Sorensen MD [address] [place] [address] PCP - General 06/05/15 Yarn Polishing Machine Operator Relationship Specialty Start Date End Date Nikita Sorensen [address] [place] [address] PCP - General Family Medicine 01/29/12 Yarn Polishing Machine Operator Relationship Specialty Start Date End Date Nikita Sorensen MD [address] [place] [address] PCP - General 06/05/15 Goals (unrecognized section [...] or prosecute any alcohol or drug abuse patient.[facility] the event this information is protected by the Federal Confidentiality of Alcohol and Drug Abuse Patient Records regulations: The Federal rules restrict any use of the information to criminally investigate or prosecute any alcohol or drug abuse patient.[facility] the event this information is protected by the Federal Confidentiality of Alcohol and Drug Abuse Patient Records regulations: The Federal rules restrict any use of the information to criminally investigate or prosecute any alcohol or drug abuse patient.[facility] the event this information is protected by the Federal Confidentiality of Alcohol and Drug Abuse Patient Records regulations: The Federal rules restrict any use of the information to criminally investigate or prosecute any alcohol or drug abuse patient.[facility] the event this information is protected by the Federal Confidentiality of Alcohol and Drug Abuse Patient Records regulations: The Federal rules restrict any use of the information to criminally investigate or prosecute any alcohol or drug abuse patient.[facility] Reason for Visit (unrecogniz ed section [...] 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] Procedures NC EXC B9 LES MRGN XCP SK TG F/E/E/N/L/M 1.1-2.0CM NC REPAIR INTERMEDIATE F/E/E/N/L&/MUC 2.5 CM/< NC REPAIR COMPLEX F/C/C/M/N/AX/G/H/F 1.1-2.5 CM EXCISION OF SOFT TISSUE MASS OF THE RIGHT FOREHEAD WITH IMMEDIATE VERSUS COMPLEX CLOSURE REPAIR INTERMEDIATE WOUNDS OF FACE EARS EYELIDS NOSE LIPS MUCOUS MEMBRANES 2.5 CM OR LESS REPAIR COMPLEX WOUND OF FOREHEAD CHEEK CHIN MOUTH NECK AXILLAE GENITALIA HANDS FEET 1.1 TO 2.5 CM Nasrin Jaffe MD [address] [place] [id number] [facility] [address] [place] [address] Referral ID Status Reason Start Date Expiration Date Visits Re quested Visits Authorized [id number] 1 1 Reason Comments Fever chills, cough [...] not necessary. bupivacaine-EPINEPHrine PF (Marcaine w/EPI) 0.25% -[id number] injection (CANCELED) As needed, Starting on Fri05/20/23 [...] BE BASED ON THE PRIMARY CLINICAL RECORDS. [employer] [facility]. provides no warranty or guarantee of the accuracy or completeness of information in this document.
[2025-02-13 19:33] VITALS: BMI 28.8
[2025-02-13 19:37] VITALS: BP 138/96; PULSE 109; RESP 17; TEMP 37.1; O2SAT 95
[2025-02-13] MEDS: 0.9% Normal Saline (1000mL) 1,000 ML 999 ML IV ×2 (19:50→21:22)
[2025-02-13] MEDS: hydrOXYzine PAM 25 MG Capsule 50 MG PO (19:54)
[2025-02-13 23:26] VITALS: BP 152/88; PULSE 78; RESP 19; TEMP 36.9; O2SAT 97
[2025-02-14 03:26] VITALS: BP 135/83; PULSE 100; RESP 18; TEMP 36.9; O2SAT 94
[2025-02-14 05:48] LABS: Hematocrit 43.7 % (40-54); Hemoglobin 14.8 g/dL (13.0-16.5); Immature Granulocytes Count 0.060 X10^3/uL (0.0-0.0); Mean Corp Hgb Conc 33.9 g/dL (32-36); Mean Corpuscular Volume 85.7 fL (80-94); Mean Platelet Vol. 10.8 fl (6.2-12.0); NRBC Flagged by Analyzer 0 % (0-5); Platelet Count 309 K/mm3 (150-450); RBC Distribution Width CV 15.3 % (11.6-14.6); RBC Distribution Width SD 48.2 fl (35.1-43.9); Red Blood Count 5.10 M/mm3 (4.6-6.2); White Blood Count 12.9 K/mm3 (4.4-11.0)
[2025-02-14 05:57] LABS: AST(SGOT) 168 U/L (<=37); Alanine Aminotransfer ALT/SGPT 145 U/L (<=46); Albumin, Serum 3.8 g/dL (3.5-5.0); Alkaline Phosphatase 70 U/L (40-129); Anion Gap 15 (5-15); BUN 9 mg/dL (4-19); BUN/Creat Ratio 9.8 RATIO (10-20); Calcium,Total 8.3 mg/dL (7.6-11.0); Carbon Dioxide 26.4 mmol/L (21.0-32.0); Chloride 98 mmol/L (98-108); Estimated Creatinine Clearance 124.65 ml/min (50-250); Globulin 2.7 g/dL (2.2-4.2); Glucose 80 mg/dL (70-99); Potassium 3.6 mmol/L (3.3-5.1)
[2025-02-14 07:49] VITALS: BP 144/88; PULSE 98; RESP 18; TEMP 36.6; O2SAT 97
[2025-02-14] MEDS: Thiamine Hydrochloride 100 MG Tablet PO (07:53)
--- NOTE | 2025-02-14 11:11 | ADDICTION ---
This grant writer met with PT to conduct ASAM, MSE, AUDIT, DUDIT assessments and to plan for d/c. PT A+Ox4 and participated actively. All assessments completed. PT plans to f/u with [facility] for outpatient treatment services on Friday.
[2025-02-14 11:26] VITALS: BP 151/96; PULSE 120; RESP 18; TEMP 36.9; O2SAT 96
--- NOTE | 2025-02-14 11:28 | PN_ITS ---
Subjective Subjective Patient seen and examined. He had no complaints. He denied any shakes or tremors. Review of systems is otherwise negative. HR is elevated at 120. Objective Data Objective Data Vital Signs: Vital Signs Temp Pulse Resp BP Pulse Ox O2 Del Method 97.8 F 98 18 144/88 H 97 Room Air 02/14/25 07:49 02/14/25 07:49 02/14/25 07:49 02/14/25 07:49 02/14/25 07:49 02/14/25 07:55 Oxygen Delivery Method Room Air Weight: 194 lb 14.218 oz Body Mass Index (BMI) 28.8 Intake & Output: Intake and Output for Last 24 Hours 02/12/25 02/13/25 02/14/25 23:59 23:59 23:59 Intake Total 1999 / 0 580 / 580 Balance 1999 / 0 580 / 580 Lab / Micro Data 02/14/25 04:57 02/14/25 04:57 Labs: Laboratory Results - last 24 hr 02/13/25 15:17: WBC 12.5 H, RBC 5.53, Hgb 16.2, Hct 46.6, MCV 84.3, MCH 29.3, MCHC 34.8, RDW Std Deviation 46.5 H, RDW Coeff of Rhianna 15.1 H, Plt Count 354, MPV 10.1, Immature Gran % (Auto) 0.400, Neut % (Auto) 66.7, Lymph % (Auto) 22.1, [place] % (Auto) 9.5, Eos % (Auto) 0.1, Baso % (Auto) 1.2 H, Absolute Neuts (auto) 8.4 H, Absolute Lymphs (auto) 2.77, Nucleated RBC % 0, Sodium 137, Potassium 3.7, Chloride 92 L, Carbon Dioxide 21.8, Anion Gap 24 H, BUN 12, Creatinine 0.98, Estim Creat Clear Calc 115.98, Est GFR (MDRD) Non-Af 103, BUN/Creatinine Ratio 12.4, Glucose 92, Calcium 8.8, Total Bilirubin 0.61, AST 227 H, ALT 188 H, Alkaline Phosphatase 91, Total Protein 7.9, Albumin 4.4, Globulin 3.5, Albumin/Globulin Ratio 1.3, Ethyl Alcohol 321.0 H* 02/13/25 16:55: Urine Opiates Screen NEGATIVE, U Buprenorphine Qual NEGATIVE, Ur Oxycodone Screen NEGATIVE, Urine Methadone Screen NEGATIVE, Urine Fentanyl Screen NEGATIVE, Ur Barbiturates Screen NEGATIVE, Ur Phencyclidine Scrn NEGATIVE, Ur Amphetamines Screen NEGATIVE, U Benzodiazepines Scrn NEGATIVE, Urine Cocaine Screen NEGATIVE, U Cannabinoids Screen PRESUMPTIVE POSITIVE 02/14/25 04:57: WBC 12.9 H, RBC 5.10, Hgb 14.8, Hct 43.7, MCV 85.7, MCH 29.0, MCHC 33.9, RDW Std Deviation 48.2 H, RDW Coeff of Rhianna 15.3 H, Plt Count 309, MPV 10.8, Immature Gran % (Auto) 0.500, Neut % (Auto) 65.2, Lymph % (Auto) 22.1, [place] % (Auto) 9.2, Eos % (Auto) 2.1, Baso % (Auto) 0.9, Absolute Neuts (auto) 8.4 H, Absolute Lymphs (auto) 2.85, Nucleated RBC % 0, Sodium 139, Potassium 3.6, Chloride 98, Carbon Dioxide 26.4, Anion Gap 15, BUN 9, Creatinine 0.91, Estim Creat Clear Calc 124.65, Est GFR (MDRD) Non-Af 112, BUN/Creatinine Ratio 9.8 L, Glucose 80, Calcium 8.3, Total Bilirubin 0.88, AST 168 H, ALT 145 H, Alkaline Phosphatase 70, Total Protein 6.5, Albumin 3.8, Globulin 2.7, Albumin/Globulin Ratio 1.4 Physical Exam Const alert and no apparent distress General Appearance: cooperative HEENT normocephalic, head/scalp atraumatic, moist oral mucous membranes and oropharynx normal Eyes EOMs intact bilaterally Eyes Narrative: has significant subconjuctival hemorrhage of right eye. Neck supple Lymph Lymphatic: no lymphedema noted Resp normal respiratory effort, normal air movement and clear to auscultation bilaterally Cardio regular rhythm, S1 normal heart sound, S2 normal heart sound and no murmurs Cardio Narrative: tachycardic GI normal to inspection, nondistended, normoactive bowel sounds, soft to palpation, non-tender and non-distended Extremity normal capillary refill, no clubbing, cyanosis or edema and no calf tenderness General Extremity: no tenderness to palpation of joints or extremities Skin General Skin Exam: no breakdown Neuro CN's II-XII intact bilaterally, no focal motor deficits and no sensory deficits noted Motor Exam: strength 5/5 throughout Psych thought process normal and cooperative Appearance: appropriate Assessment & Plan Assessment/Plan (1) Subconjunctival hemorrhage of right eye: (2) Alcohol withdrawal: PLAN: Plan #Acute alcohol withdrawal * In alcohol withdrawal protocol with phenobarbital. * On thiamine, folic acid and Multi-Papi. Adjunctive meds for symptomatic relief.\ * Monitor CIWA score * #Sinus Tachycardia: * Patient appears to be in sinus tachycardia with heart rate ranging from 10 2-1 20s. * Looking back into 2020 patient has similar tachycardia. * Check TSH and 2D echo * check D fcgfo-G-sycmf was elevated at over 2. CTA of the chest was therefore done which showed no evidence of PE and showed no acute cardiopulmonary pathology but showed prominence diffuse hepatic steatosis. * TSH showed 3.37. 2D echo pending. Will start patient on p.o. metoprolol. * #Left subconjuctival hemorrhage * has left subconjuctival hemorrhage. He apparently wears contacts which he has not taken off for a long while. I advised him that it would be advisable to take out his contacts periodically, but he said he cannot see without the contacts so he would not take them out * will need follow up with ophthalmology on outpatient basis. * #Probable fatty liver disease: * CT showed hepatic steatosis. Liver enzymes also elevated at 168/145 though these are trending down. * This likely due to alcoholic liver disease. * Counseled to quit alcohol. * Follow-up with gastroenterology on outpatient basis. * #Depression: on olanzapine and fluoxetine. DVT prophylaxis: low risk, encourage ambulation Charges/Coding Visit Charges Inpatient E&M: 57838 Subs Hosp L2
--- NOTE | 2025-02-14 13:40 | ECHOD_ITS ---
Reason For Study Reason For Study: Arrhythmia Procedure This was a 2D Doppler, Color Flow transthoracic echocardiogram. The study was technically difficult. Exam performed portable in patient room. Left Ventricle Normal LV size. Increased LV wall thickness. Left ventricular systolic function is hyperdynamic. Stage 1 diastolic dysfunction. No regional wall motion abnormalities noted. Right Ventricle Normal size and thickness. Normal systolic function. Atria The left and right atria are normal. Mitral Valve The mitral valve is structurally normal. No prolapse or stenosis seen. There is no vegetation seen on the mitral valve. Trivial mitral valve insufficiency. Tricuspid Valve Normal tricuspid valve. No vegetations identified. Trivial tricuspid valve insufficiency. Aortic Valve Trisinus/trileaflet aortic valve. There is no aortic valvular vegetation. There is no aortic stenosis. No aortic valve insufficiency. Pulmonic Valve The pulmonic valve is not well visualized. Trivial eccentric pulmonic valve insufficiency. MMode/2D Measurements & Calculations LVIDd: 4.7 cm IVSd: 1.1 cm Ao root diam: 3.3 cm LVIDs: 2.9 cm LVPWd: 0.92 cm FS: 38.7 % LAV(MOD-bp): 26.3 ml SV(MOD-sp4): 37.1 ml LVAd ap4: 27.0 cm2 LAV(MOD-bp) Indexed: 12.9 ml/m2 LVLd ap4: 7.7 cm SI(MOD-sp4): 18.2 ml/m2 LAV(MOD-sp2): 30.8 ml EDV(MOD-sp4): 77.4 ml LAV(MOD-sp4): 21.8 ml EDV(sp4-el): 80.6 ml LVAs ap4: 18.0 cm2 LVLs ap4: 7.0 cm ESV(MOD-sp4): 40.2 ml ESV(sp4-el): 39.1 ml EF(MOD-sp4): 48.0 % EF(sp4-el): 51.5 % SV(sp4-el): 41.5 ml LA dimension(2D): 3.3 cm LA A4 area: 10.2 cm2 TAPSE: 1.7 cm RA A4 area: 7.6 cm2 Time Measurements MV dec time: 0.23 sec Doppler Measurements & Calculations MV E max chilango: 58.5 cm/sec Lat Peak E' Chilango: 15.7 cm/sec Med Peak E' Chil[place]: 9.9 cm/sec MV A max chilango: 49.9 cm/sec E/E' lat: 3.7 E/E' med: 5.9 MV E/A: 1.2 MV V2 max: 66.9 cm/sec MV P1/2t max chilango: 60.4 cm/sec Ao V2 max: 134.2 cm/sec MV max P.8 mmHg MV P1/2t: 69.2 msec Ao max P.2 mmHg MV V2 mean: 41.0 cm/sec MV mean P.75 mmHg MV dec slope: 255.6 cm/sec2 MV V2 VTI: 13.2 cm MVA(P1/2t): 3.2 cm2 LV V1 max: 105.5 cm/sec PA V2 max: 104.1 cm/sec LV V1 max P.5 mmHg LV V1 mean P.3 mmHg LV V1 mean: 70.9 cm/sec LV V1 VTI: 16.8 cm ECHO/Echo Complete Interpretation Summary Increased LV wall thickness Left ventricular systolic function is hyperdynamic. No regional wall motion abnormalities noted. No vegetations identified. There is no vegetation seen on the mitral valve. The mitral valve is structurally normal. No prolapse or stenosis seen. Ordering Physician: Agnela Chau Performed By: Brad Felix RCS
[2025-02-14 15:16] LABS: D-Dimer Quantitative (DVT/PE) 2.65 FEU/ug/m (0.27-0.49)
--- NOTE | 2025-02-14 15:18 | CT_ITS ---
PROCEDURE: CTA CHEST W/WO CONTRAST 02/14/2025 REASON FOR EXAM: ELEVATED D DIMER TECHNIQUE: CTA CHEST W/WO CONTRAST Multiplanar Sagittal and Coronal images were obtained. 3D post processing was performed. CONTRAST: Isovue 370 VOLUME: 100 mL One or more dose reduction techniques were used (e.g., Automated exposure control, adjustment of the mA and/or kV according to patient size, use of iterative reconstruction technique). RADIATION DOSE SUMMARY: DLP: 526.88 mGycm COMPARISON: None. FINDINGS: PULMONARY VESSELS: No filling defects suspicious for pulmonary arterial emboli. Normal caliber main pulmonary trunk. No evidence for right heart strain. LUNGS/PLEURA: Clear. No airspace consolidation or findings of pulmonary edema. No pneumothorax or pleural effusions. Central airways are patent. Mild bibasilar scattered discoid atelectasis. MEDIASTINUM: Unremarkable. No lymphadenopathy. HEART: Normal in size. No pericardial effusion. No significant coronary artery calcification. THORACIC AORTA: Normal in course and caliber. No significant atherosclerotic disease. UPPER ABDOMEN: Marked diffuse hepatic steatosis. Otherwise unremarkable. BONES: No significant abnormality. CT/CTA Chest W/WO Contrast IMPRESSION: 1. No acute intrathoracic pathology. No pulmonary arterial emboli. 2. Prominent diffuse hepatic steatosis. Reading Location: [id number]
[2025-02-14 15:26] VITALS: BP 155/96; PULSE 117; RESP 18; TEMP 36.8; O2SAT 96
[2025-02-14] MEDS: hydrOXYzine PAM 25 MG Capsule 50 MG PO ×2 (19:35→23:55)
[2025-02-14 19:41] VITALS: BP 146/101; PULSE 106; RESP 17; TEMP 37.4; O2SAT 95
--- NOTE | 2025-02-14 19:46 | NURSING ---
Pt said his nicotine patch fell off and no one was able to loacte it . Pt requesting another patch. I called pharmacy they will let know if we are allow to reapply a new one.
[2025-02-14 23:51] VITALS: BP 140/93; PULSE 75; RESP 20; TEMP 36.5; O2SAT 96
[2025-02-15] VITALS (9 sets, daily range): BP systolic 109–153; BP diastolic 68–95; PULSE 84–99; RESP 16–22; TEMP 36.5–37.2; O2SAT 94–99
[2025-02-15] MEDS: 0.9% Saline Lock 10 ML Syringe IV ×2 (00:04→19:42)
[2025-02-15] MEDS: Thiamine Hydrochloride 100 MG Tablet PO (07:53)
--- NOTE | 2025-02-15 12:05 | PN_ITS ---
Subjective Subjective Patient seen and examined with his by his bedside. He had no active complaints today. Review of systems is otherwise negative. Objective Data Objective Data Vital Signs: Vital Signs Temp Pulse Resp BP Pulse Ox O2 Del Method 98.5 F 92 18 153/95 H 97 Room Air 02/15/25 07:50 02/15/25 08:11 02/15/25 07:50 02/15/25 07:50 02/15/25 07:50 02/15/25 07:57 Oxygen Delivery Method Room Air Weight: 194 lb 14.218 oz Body Mass Index (BMI) 28.8 Intake & Output: Intake and Output for Last 24 Hours 02/13/25 02/14/25 02/15/25 23:59 23:59 23:59 Intake Total 1999 / 2300 580 / 580 Balance 1999 / 2300 580 / 580 Lab / Micro Data 02/14/25 04:57 02/14/25 04:57 Labs: Laboratory Results - last 24 hr 02/14/25 04:57: TSH 3.370 02/14/25 14:25: D-Dimer Quant (PE/DVT) 2.65 H* Radiography Diagnostic Testing: Radiology Impression Echocardiogram 02/14/25 13:40 Interpretation Summary Increased LV wall thickness Left ventricular systolic function is hyperdynamic. No regional wall motion abnormalities noted. No vegetations identified. There is no vegetation seen on the mitral valve. The mitral valve is structurally normal. No prolapse or stenosis seen. Ordering Physician: Angela Chau Performed By: Brad Felix RCS Chest CTA 02/14/25 15:18 IMPRESSION: 1. No acute intrathoracic pathology. No pulmonary arterial emboli. 2. Prominent diffuse hepatic steatosis. Reading Location: [facility] Physical Exam Const alert, oriented x3 and no apparent distress General Appearance: cooperative HEENT normocephalic, head/scalp atraumatic, moist oral mucous membranes and oropharynx normal Eyes EOMs intact bilaterally Eyes Narrative: has significant subconjuctival hemorrhage of right eye. Neck supple Lymph Lymphatic: no lymphedema noted Resp normal respiratory effort, normal air movement and clear to auscultation bilaterally Cardio regular rhythm, S1 normal heart sound, S2 normal heart sound and no murmurs Cardio Narrative: tachycardic GI normal to inspection, nondistended, normoactive bowel sounds, soft to palpation, non-tender and non-distended Extremity normal capillary refill, no clubbing, cyanosis or edema and no calf tenderness General Extremity: no tenderness to palpation of joints or extremities Skin General Skin Exam: no breakdown Neuro CN's II-XII intact bilaterally, no focal motor deficits and no sensory deficits noted Motor Exam: strength 5/5 throughout Psych thought process normal and cooperative Appearance: appropriate Assessment & Plan Assessment/Plan (1) Subconjunctival hemorrhage of right eye: (2) Alcohol withdrawal: PLAN: Plan #Acute alcohol withdrawal * In alcohol withdrawal protocol with phenobarbital. * On thiamine, folic acid and Multi-Papi. Adjunctive meds for symptomatic relief.\ * Monitor CIWA score * #Sinus Tachycardia: * Patient appears to be in sinus tachycardia with heart rate ranging from 10 2-1 20s. * Looking back into 2020 patient has similar tachycardia. * Check TSH and 2D echo * check D [id number] was elevated at over 2. CTA of the chest was therefore done which showed no evidence of PE and showed no acute cardiopulmonary pathology but showed prominence diffuse hepatic steatosis. * TSH showed 3.37. 2D echo pending. * patient started on PO metoprolol 12.5mg bid. * #Left subconjuctival hemorrhage * has left subconjuctival hemorrhage. He apparently wears contacts which he has not taken off for a long while. I advised him that it would be advisable to take out his contacts periodically, but he said he cannot see without the contacts so he would not take them out * will need follow up with ophthalmology on outpatient basis. * #Probable fatty liver disease: * CT showed hepatic steatosis. Liver enzymes also elevated at 168/145 though these are trending down. * This likely due to alcoholic liver disease. * Counseled to quit alcohol. * Follow-up with gastroenterology on outpatient basis. * #Depression: on olanzapine and fluoxetine. DVT prophylaxis: low risk, encourage ambulation Disposition: anticipat dc tomorrow. Charges/Coding Visit Charges Inpatient E&M: 13231 Subs Hosp L2
--- NOTE | 2025-02-15 15:58 | CASEMGMT ---
Social Work Pt has no health insurance. Pt did meet with Aimee from [employer] and Aimee will assist pt in applying for Medicaid. SW met with pt and provided written information of community resources due to self pay. [employer], [employer], [employer], [employer], and Prescription Assistance. Pt denies any further needs at this time. MAYA Fiore
--- NOTE | 2025-02-15 16:25 | CHAPLAIN ---
Type of Pastoral Visit _x__ Initial Visit ___ Follow-up Visit ___ On-call Visit ___ General Patient Visit ___ Spiritual Assessment ___ Family Conference ___ Bereavement ___ Rapid Response ___ Code Blue ___ Other (describe below) Pastoral Care Referral From _x__ Patient ___ Family ___ Nurse ___ Physician ___ Chain Tender ___ Yard Attendant ___ Other (describe below) Sacrament/Intervention _x__ Active listening ___ Anointing ___ Synagogue _x__ Bereavement ___ Communion _x__ Cindy exploration ___ _x__ Life review _x__ Prayer ___ Reconciliation ___ Sacrament of Sick _x__ Supportive presence ___ Wedding ___ Other (describe below) Pastoral Comments patient is welcoming today; pt opens up immediately because I have a question - how should someone grieve properly?; this was about his grandmother dying just recently and pt admits to deep feelings of loss and some regret with not being there at 'the end'; pt is tearful and expressive; pt is given time to process his emotions and thoughts; pt is affirmed; pt also relates to his spiritual upbringing and thoughts of going to heaven which helps comfort him; pt gives life review, an accounting of his struggles, and recent job loss and loneliness; pt opens up easily to talk about his relationships and disappointments; pt has lots of insight into his issues and has good knowledge of the Taoist cindy and the Bible; pt several times expresses appreciation for time given, help in processing, and words that bring comfort and insights; pt is open to prayer and presence
[2025-02-16 03:01] VITALS: BP 114/81; PULSE 64; RESP 16; TEMP 36.5; O2SAT 95
[2025-02-16 09:13] VITALS: BP 149/82; PULSE 78; RESP 16; TEMP 36.4; O2SAT 97
[2025-02-16 09:24] VITALS: PULSE 78
[2025-02-16] MEDS: Thiamine Hydrochloride 100 MG Tablet PO (09:24)
--- NOTE | 2025-02-16 10:59 | DCINST_ITS ---
Discharge Instructions DC O2, CPAP, BIPAP needs Home O2 Discharge instructions: No Dressing / Incision Discharge Activity: Return to Normal Activity Weight Bearing Status: Weight bearing as tolerated Dressing / Incision Call your doctor if you observe: Fever of 101 or Higher, Shortness of breath and Increased palpitations (irregular heartbeat) Follow Up Care Test Results: Test results from this visit will be discussed in further detail at your follow- up appointment, if applicable. Discharge Plan Admission Admit Date/Time: 02/13/25 18:49 Primary Reason for Your Visit: acute alcohol withdrawal Attending Provider: Angela Chau Primary Care Provider: Nikita Medina Consulting Providers: Xochilt De Jesus Instructions Patient Instructions: Alcohol Withdrawal: What to Expect Additional Instructions / Restrictions: follow up with ophthalmology within one week to evaluate right subconjuctival hemorrhage Discharge Orders/Prescriptions Prescriptions: New metoprolol tartrate 25 mg Tablet 12.5 mg PO BID Qty: 30 2RF Continued fluoxetine 20 mg capsule 20 mg PO DAILY olanzapine 20 mg tablet 20 mg PO QHS Referrals / Follow Up: Nikita Medina MD [Primary Care Provider] - In 1 Week Disposition Disposition (needs filled in before D/C Order can be placed): Home, Self Care
--- NOTE | 2025-02-16 10:59 | PCM.DC.SUM ---
Providers Date of Admission: 02/13/25 Date of Discharge: 02/16/25 Primary Care Physician: Dr. Nikita Medina MD Reason For Visit: ALCOHOL DETOX Diagnosis Discharge Diagnosis (1) Subconjunctival hemorrhage of right eye: Status: Acute Code(s): H11.31 - Conjunctival hemorrhage, right eye (2) Alcohol withdrawal: Status: Acute Code(s): F10.939 - Alcohol use, unspecified with withdrawal, unspecified Plan #Acute alcohol withdrawal In alcohol withdrawal protocol with phenobarbital. On thiamine, folic acid and Multi-Papi. Adjunctive meds for symptomatic relief.\ Monitor CIWA score #Sinus Tachycardia: Patient appears to be in sinus tachycardia with heart rate ranging from 10 2-1 20s. Looking back into 2020 patient has similar tachycardia. Check TSH and 2D echo check D [id number] was elevated at over 2. CTA of the chest was therefore done which showed no evidence of PE and showed no acute cardiopulmonary pathology but showed prominence diffuse hepatic steatosis. TSH showed 3.37. 2D echo pending. patient started on PO metoprolol 12.5mg bid. #Left subconjuctival hemorrhage has left subconjuctival hemorrhage. He apparently wears contacts which he has not taken off for a long while. I advised him that it would be advisable to take out his contacts periodically, but he said he cannot see without the contacts so he would not take them out will need follow up with ophthalmology on outpatient basis. #Probable fatty liver disease: CT showed hepatic steatosis. Liver enzymes also elevated at 168/145 though these are trending down. This likely due to alcoholic liver disease. Counseled to quit alcohol. Follow-up with gastroenterology on outpatient basis. #Depression: on olanzapine and fluoxetine. DVT prophylaxis: low risk, encourage ambulation Disposition: anticipat dc tomorrow. Medications at Discharge Home Medications fluoxetine 20 mg capsule 20 mg PO DAILY 02/13/25 olanzapine 20 mg tablet 20 mg PO QHS 02/13/25 metoprolol tartrate 25 mg tablet 12.5 mg (1/2 x 25 mg) PO BID #30 tabs 02/16/25 Hospital Course Operations None Procedures 2-D Echocardiogram Summary of Care Provided Minutes Spent on Discharge: 45 Hospital Course: Patient is a 34-year-old male with past medical history as outlined including history of alcohol use disorder and depression was admitted with a complaint of right eye redness. Patient will contacts and said he had not taken other contacts in the long while because he could not see very well without the contacts. When he came into the ED family also reports that he thought he was depressed. He was tachycardic and his blood pressure was elevated at 175/106. Labs showed WBC of 12.5 with hemoglobin of 16.2 and anion gap of 24 though bicarb was normal. Creatinine was 0.98. AST and ALT were elevated. Urine tox was positive for cannabinoids and alcohol level was 321. Patient admitted with significant history of alcohol use recently. He said his grandmother recently and is also lost his job a month ago and had been drinking heavily since then. He has not been eating food or drinking water and had just been drinking alcohol. He was admitted and managed for alcohol use disorder with potential for acute alcohol withdrawal. He was started on alcohol withdrawal protocol with phenobarbital. He was counseled to follow-up with ophthalmology on outpatient basis on account of the subconjunctival hemorrhage. Additionally, patient was noted to be tachycardic during this admission. TSH was normal and 2D echo was also normal. CT of the chest done on account of elevated D-dimer was negative for any evidence of PE. He was therefore started on p.o. metoprolol 12.5 mg twice daily. His heart rate did improve. He remained stable and was discharged home on 02/16/2025 after he completed the detox protocol. He is follow-up with his primary care doctor within 1 to 2 weeks. He is also to follow up with ophthalmology on outpatient basis for the subconjunctival hemorrhage and the contact lenses that he had been wearing for months without removing. Patient seen and examined prior to discharge. He had no active complaints and had an uneventful night. Review of systems was otherwise negative. Labs and vitals reviewed. Home meds reviewed and reconciled. Physical Exam Const alert, oriented x3 and no apparent distress General Appearance: cooperative and comfortable Exam Limitations: no limitations HEENT normocephalic, head/scalp atraumatic, hearing grossly normal bilaterally, moist oral mucous membranes and oropharynx normal Eyes EOMs intact bilaterally Eyes Narrative: has significant subconjuctival hemorrhage of right eye. Neck supple Lymph Lymphatic: no lymphedema noted Resp normal respiratory effort, normal air movement and clear to auscultation bilaterally Cardio regular rhythm, S1 normal heart sound, S2 normal heart sound and no murmurs Cardio Narrative: tachycardia has resolved GI normal to inspection, nondistended, normoactive bowel sounds, soft to palpation, non-tender and non-distended Extremity normal to inspection, full ROM, normal capillary refill, no clubbing, cyanosis or edema and no calf tenderness General Extremity: no tenderness to palpation of joints or extremities Skin no rashes or lesions noted General Skin Exam: no breakdown Neuro oriented x3, CN's II-XII intact bilaterally, moves all extremities, no focal motor deficits and no sensory deficits noted Sensorium / Orientation: awake and alert Motor Exam: strength 5/5 throughout Psych thought process normal and cooperative Appearance: appropriate Weight / BMI Weight Weight: 194 lb 14.218 oz Body Mass Index (BMI) 28.8 ABG / Lab / Microbiology Data 02/14/25 04:57 02/14/25 04:57 Radiography Diagnostic Testing: Radiology Impression Echocardiogram 02/14/25 13:40 Interpretation Summary Increased LV wall thickness Left ventricular systolic function is hyperdynamic. No regional wall motion abnormalities noted. No vegetations identified. There is no vegetation seen on the mitral valve. The mitral valve is structurally normal. No prolapse or stenosis seen. Ordering Physician: Angela Chau Performed By: Brad Felix RCS D/C Instructions Discharge Activity: Return to Normal Activity Weight Bearing Status: Weight bearing as tolerated Call your doctor if you observe: Fever of 101 or Higher, Shortness of breath and Increased palpitations (irregular heartbeat) DC O2, CPAP, BIPAP Needs Home O2 Discharge instructions: No DC home with Oxygen: No Meaningful Use Info Meaningful Use Meaningful Use Diagnoses (Choose all that apply): None applicable Discharge Plan Admission Admit Date/Time: 02/13/25 18:49 Primary Reason for Your Visit: acute alcohol withdrawal Attending Provider: Angela Chau Primary Care Provider: Nikita Medina Consulting Providers: Xochilt De Jesus Instructions Patient Instructions: Alcohol Withdrawal: What to Expect Additional Instructions / Restrictions: follow up with ophthalmology within one week to evaluate right subconjuctival hemorrhage Discharge Orders/Prescriptions Prescriptions: New metoprolol tartrate 25 mg Tablet 12.5 mg PO BID Qty: 30 2RF Continued fluoxetine 20 mg capsule 20 mg PO DAILY olanzapine 20 mg tablet 20 mg PO QHS Referrals / Follow Up: Nikita Medina MD [Primary Care Provider] - In 1 Week Disposition Disposition (needs filled in before D/C Order can be placed): Home, Self Care Charges/Coding Visit Charges Inpatient E&M: 28014 Disch Hosp >30min
== END 2025-02-16 12:15 | disposition home or self-care (01) | DRG 897 ==
LOC: ED 18:21 → MS3 19:09
PROVIDERS: Admitting Provider Internal Medicine; Emergency Provider Emergency Medicine; PCP Family Medicine; Visit Provider Student in an Organized Health Care Education/Training Program
DX: F10.939 Alcohol use, unspecified with withdrawal, unspecified (principal); F32.A Depression, unspecified; K76.0 Fatty (change of) liver, not elsewhere classified; H11.31 Conjunctival hemorrhage, right eye; F41.9 Anxiety disorder, unspecified; Z87.891 Personal history of nicotine dependence; Z79.899 Other long term (current) drug therapy; Z86.16 Personal history of COVID-19; Y90.8 Blood alcohol level of 240 mg/100 ml or more
CPT/HCPCS: 36415; 71275; 80053; 80307; 82077; 84443; 85025; 85379; 93306; 99285; Q9967; A4216

== ENCOUNTER 2025-03-31 20:44 | Inpatient (IN) | payer MEDICAID, SELFPAY ==
[2025-03-31 20:45] VITALS: BP 160/90; PULSE 97; RESP 18; TEMP 36.8; O2SAT 97; BMI 31.2
[2025-03-31 20:50] VITALS: BP 135/98; PULSE 84; RESP 16; TEMP 36.8; O2SAT 93
--- NOTE | 2025-03-31 21:20 | HP.PCM.HOS_ITS ---
HPI - General General Date of Admission: 03/31/25 Date of Service: 03/31/25 Chief Complaint: EtOH detoxification request. HPI Narrative The patient is a 34 y/o M w/ PMHx: Obesity, Anxiety and Depression/mood disorder, Chew/Snuff tobacco use (heavy), EtOH abuse (prior heavier 12 pack seltzers daily now down to 2-3 over the last week, last drink at 4 PM on day of presentation), Former cannabis and occasional opiate use but clean for several years, HTN who presents to [facility] ED on 03/31/2025 secondary to requested alcohol detoxification reporting that he had actually been sober until 1 week prior unfortunately when he started drinking approximately 2-3 seltzer drinks daily with last as noted at 4 PM on day of presentation but eagerness to again claim sober status prompting his evaluation. He denies any withdrawal symptoms at this time but states likely in the next hour or so he would expect to have notable nausea, tremors, agitation and tactile disturbances. He is very nervous about withdrawal and tearful with discussions. Workup in the ED included T98.2, heart rate 84, BP 135/98, respiratory rate 16, 93% on room air, CBC with WC 12.5, Hulme 116.2, platelet 607 with lymphocytosis, pending BMP upon requested evaluation of patient as well as at the alcohol level and UDS. [facility] Medical History HTN (hypertension) Obesity Tobacco use Anxiety and depression COVID-19 Home Medications ?Medication ?Instructions ?Recorded ?Last Taken ?Type fluoxetine 20 mg capsule 20 mg PO DAILY 02/13/25 Unkn own History olanzapine 20 mg tablet 20 mg PO QHS 02/13/25 Unknow n History metoprolol tartrate 25 mg tablet 12.5 mg (1/2 x 25 mg) PO BID #30 02/16/25 Unknown Rx tabs Allergy/AdvReac Type Severity Reaction Status Date / Time Cephalosporins Allergy Hives Verified 03/31/25 20:47 Penicillins Allergy Hives Verified 03/31/25 20:47 Family History (Updated 03/31/25 @ 21:[address] Jo-Ann Reynolds MD) Father Hypertension Diabetes Mother No problems noted. Surgical History Hx of tympanostomy tubes History of adenectomy Hx of tonsillectomy Hx of splenectomy Social History (Updated 03/31/25 @ 21:[address] Jo-Ann Reynolds MD) household members: none Smoking Status: Former smoker Smokeless tobacco user: chewing tobacco alcohol intake: current alcohol intake frequency: 3 or more drinks per day Alcohol type: other details: Prior heavier, sober until ~ 1 wk prior, drinking 2-3 seltzer drinks daily. substance use type: former substance user Date of last use: Previously used cannabis and occasional opiate but is not for many years. ROS ROS Narrative Admission Review of Systems: CONSTITUTIONAL: No weight loss, fever, chills, + weakness or fatigue. HEENT: Eyes: No visual loss, blurred vision, double vision or yellow sclerae. Ears, Nose, Throat: No hearing loss, sneezing, congestion, runny nose or sore throat. SKIN: No rash or itching, lesions, wounds except + occasional ecchymoses, abrasion. CARDIOVASCULAR: No chest pain, chest pressure or chest discomfort, palpitations, edema, orthopnea, syncopal events. RESPIRATORY: No shortness of breath, cough or sputum, wheezing, hemoptysis. GASTROINTESTINAL: No anorexia, nausea, vomiting or diarrhea, abdominal pain, melena, BRBPR. GENITOURINARY: No dysuria, frequency, urgency or retention. NEUROLOGICAL: No headache, dizziness, syncope, paralysis, ataxia, numbness or tingling in the extremities, focal weakness, change in bowel or bladder control, seizure. MUSCULOSKELETAL: + muscle, back pain, joint pain or stiffness. HEMATOLOGIC: No anemia, bleeding or bruising. LYMPHATICS: No enlarged nodes. No history of splenectomy. PSYCHIATRIC: + History of anxiety depression/mood disorder. ENDOCRINOLOGIC: No reports of sweating, cold or heat intolerance. No polyuria or polydipsia. ALLERGIES: + History of hives. Vital Signs Vital Signs Vital Signs: 03/31/25 20:45 03/31/25 20:50 Temperature 98.3 F 98.2 F Temperature Source Temporal Oral Pulse Rate 97 84 Respiratory Rate 18 16 Blood Pressure 160/90 H 135/98 H Blood Pressure Mean 113 110 Blood Pressure Source Monitor Blood Pressure Position Semi-Fowlers Blood Pressure Location Right Arm Pulse Ox 97 93 Oxygen Delivery Method Room Air Room Air Weight Weight: 211 lb 8 oz Body Mass Index (BMI) 31.2 Physical Exam Narrative Physical Examination: General: Awake, alert, oriented x 3 and cooperative, seated upright in the ED bed, very anxious, tearful as he is worried about withdrawal symptoms, currently none. Skin: Normal color, normal turgor, no icterus, no cyanosis except occasional stage ecchymoses, abrasion. HEENT: AT/NC, EOMI, PERRLA, moderately dry MM, no carotid bruits or JVD noted. Lungs: CTA bilaterally, moderate effort, mild decrease BL bases, no rales, ronchi or wheezing. Heart: Regular rate and rhythm; no gallop, rub audible. Abdomen: Soft, obese, NTTP, ND, mildly hyperactive BS, no markedly appreciate HSM. Extremities: No cyanosis, clubbing, or edema. Neurological: Patient awake, alert, oriented as noted, cognitive function intact; pupils equally reactive to light and accommodation, cranial nerves grossly normal, moving all 4 extremities, no focal deficits, strength mildly globally creased, no current tactile disturbances or tremors evident. Psychiatric: Affect appears anxious, tearful, does have underlying anxiety and depression/mood disorder, admits to extreme anxiety about potentially withdrawing prior to receiving initiation of medication tapering. Results Lab / Micro Data 03/31/25 21:13 03/31/25 21:13 Assessment & Plan Assessment/Plan (1) Desire for detoxification: PLAN: Plan The patient is a 34 y/o M w/ PMHx: Obesity, Anxiety and Depression/mood disorder, Chew/Snuff tobacco use (heavy), EtOH abuse (prior heavier 12 pack seltzers daily now down to 2-3 over the last week, last drink at 4 PM on day of presentation), Former cannabis and occasional opiate use but clean for several years, HTN who presents to [facility] ED on 03/31/2025 secondary to requested alcohol detoxification. #1. EtOH abuse with impending Acute EtOH Withdrawal: Will admit to [facility], routine labs obtained in the ED upon presentation with CBC resulted, awaiting on BMP, UDS, ethyl alcohol level, will add on liver profile. Given interest in sobriety, will initiate and continue on protocol with taper course of Phenobarbital, as needed gabapentin, Catapres, Bentyl, Vistaril, IV fluids, IV antiemetics, Tylenol as needed for pain. Will consult Case management for assistance for transition to next level of rehabilitation care. Mag, phos pending. Maintain on CIWA protocol concurrently. #2. Hypertension: Continue home regimen including metoprolol however given his age certainly could consider an alternate agent, PRN hydralazine. #3. Anxiety and depression/mood disorder: Will continue patient home fluoxetine and olanzapine home regimen, strongly encourage follow-up outpatient with counseling and therapy as this likely is contributing heavily to #1. #4. Chew/Snuff Tobacco Abuse: Encouraged cessation, inpatient consultation per RT, NR if desired. #5. Obesity: Weight loss and lifestyle changes encouraged. #6. DVT prophylaxis: Low risk, encourage ambulation. Charges/Coding Visit Charges Inpatient E&M: 22586 Init Hosp L2
--- NOTE | 2025-03-31 21:25 | EDS_ITS ---
HPI History of Present Illness Chief Complaint: ETOH Intox Informant: patient Onset/Context/Timing Onset: Today Context: Gradual Onset Timing: Continuous Worsened by: Nothing Relieved by: Nothing Associated Symptoms Associated Symptoms: Negative for vomiting*, diarrhea*, fever*, rash*, seizure, tremor, palpatations, suicidal ideation or homicidal ideation Narrative Narrative: Patient presents requesting detox from alcohol. Patient states he drinks 2-3 white claws cans per day. Patient states his last drink was approximately 4 PM today. Patient states he has been to detox in the past. Patient states he was recently admitted for detox in December. Patient denies any suicidal or homicidal ideations. Patient denies any nausea or vomiting. Patient denies any fevers or chills. Patient denies any seizures or tremors. [facility] Medical History HTN (hypertension) Obesity Tobacco use Anxiety and depression COVID-19 Home Medications ?Medication ?Instructions ?Recorded ?Last Taken ?Type olanzapine 20 mg tablet 20 mg PO QHS 02/13/25 Unknow n History metoprolol tartrate 25 mg tablet 12.5 mg (1/2 x 25 mg) PO BID #30 02/16/25 Unknown Rx tabs Allergy/AdvReac Type Severity Reaction Status Date / Time Cephalosporins Allergy Hives Verified 03/31/25 20:47 Penicillins Allergy Hives Verified 03/31/25 20:47 Family History (Updated 03/31/25 @ 21:[address] Jo-Ann Reynolds MD) Father Hypertension Diabetes Mother No problems noted. Surgical History Hx of tympanostomy tubes History of adenectomy Hx of tonsillectomy Hx of splenectomy Social History (Updated 03/31/25 @ 21:[address] Jo-Ann Reynolds MD) household members: none Smoking Status: Former smoker Smokeless tobacco user: chewing tobacco alcohol intake: current alcohol intake frequency: 3 or more drinks per day Alcohol type: other details: Prior heavier, sober until ~ 1 wk prior, drinking 2-3 seltzer drinks daily. substance use type: former substance user Date of last use: Previously used cannabis and occasional opiate but is not for many years. ROS ROS ED Constitutional Constitutional ED: Denies chills or fever(s) Eyes Eyes: Denies blurry vision or change in vision ENT ENT ED: Denies rhinorrhea or sore throat Cardiovascular Cardiovascular: Denies chest pain or palpitations Respiratory/Chest Respiratory/Chest: Denies cough or dyspnea Gastrointestinal Gastrointestinal: Denies nausea or vomiting Genitourinary Genitourinary ED: Denies dysuria or hematuria Musculoskeletal Musculoskeletal: Denies back pain or neck pain Integumentary Denies abscess or rash Neurologic Neurologic: Denies headache(s) or weakness Allergic/Immunologic Allergic/Immunologic ED: Denies mouth swelling or urticaria EXAM Physical Exam Const Vital Signs: 03/31/25 20:45 03/31/25 20:50 03/31/25 22:04 Temperature 98.3 F 98.2 F Temperature Source Temporal Oral Pulse Rate 97 84 94 Respiratory Rate 18 16 18 Blood Pressure 160/90 H 135/98 H 125/1 H Blood Pressure Mean 113 110 42 Blood Pressure Source Monitor Blood Pressure Position Semi-Fowlers Blood Pressure Location Right Arm Pulse Ox 97 93 93 Oxygen Delivery Method Room Air Room Air Room Air 03/31/25 22:06 Temperature 98.9 F Temperature Source Pulse Rate 94 Respiratory Rate 18 Blood Pressure 125/1 H Blood Pressure Mean 42 Blood Pressure Source Blood Pressure Position Blood Pressure Location Pulse Ox 93 Oxygen Delivery Method Positive well nourished and well developed General Appearance ED: well developed and NAD HEENT Reports moist mucous membranes atraumatic Neck supple and no JVD Resp normal respiratory effort and clear to auscultation bilaterally Cardio regular rate and regular rhythm GI soft to palpation, non-tender and non-distended Extremity General Extremety ED: Negative for edema or tenderness General Extremity: Negative for edema Neuro oriented x3, CN's II-XII intact bilaterally and no sensory deficits noted Erica Coma Scale: document GCS findings Spontaneous Obeys Commands Oriented 15 Sensorium / Orientation: alert Speech: speech normal Motor Exam: strength 5/5 throughout Psych mental status grossly normal and thought process normal MDM MDM MDM Narrative Medical decision making narrative: Medical screening labs will be obtained. CBC will be obtained to assess for leukocytosis and anemia. Basic metabolic profile will be obtained to assess for electrolyte abnormality and renal function. Hepatic profile will be obtained to assess for hepatic function. Serum alcohol level will be obtained to assess for alcohol intoxication. Urine drug screen will be obtained to assess for substance abuse. Serum magnesium and phosphorus will be obtained to assess for hypomagnesemia and hypophosphatemia. History & Record Review Additional record(s) reviewed:: Prior inpatient record, Prior ED visit and Prior labs Lab Data Attestation: I reviewed the patient's lab results. Lab results narrative: CBC was reviewed. There is a mild leukocytosis of 12.5. Platelets are mildly elevated at 607. The remainder is within normal limits. Comprehensive m etabolic profile was reviewed. Glucose was mildly elevated at 119. AST was slightly elevated at 54. The remainder was within normal limits. Urine tox screen was reviewed and was negative. Serum alcohol level was reviewed and was elevated at 289. Labs: Laboratory Results - last 24 hr 03/31/25 03/31/25 20:50 21:13 WBC 12.5 H RBC 5.62 Hgb 16.2 Hct 47.5 MCV 84.5 MCH 28.8 MCHC 34.1 RDW Std Deviation 43.5 RDW Coeff of Rhianna 14.2 Plt Count 607 H MPV 9.9 Immature Gran % (Auto) 0.200 Neut % (Auto) 38.0 L Lymph % (Auto) 43.0 H [place] % (Auto) 15.6 H Eos % (Auto) 1.6 Baso % (Auto) 1.6 H Absolute Neuts (auto) 4.8 Absolute Lymphs (auto) 5.38 H Nucleated RBC % 0 Differential Comment SCANNED Sodium 143 Potassium 3.8 Chloride 100 Carbon Dioxide 26.2 Anion Gap 18 H BUN 10 Creatinine 1.01 Estim Creat Clear Calc 116.66 Est GFR (MDRD) Non-Af 99 BUN/Creatinine Ratio 9.7 L Glucose 119 H Calcium 9.3 Magnesium 2.2 Total Bilirubin 0.47 Direct Bilirubin 0.15 AST 54 H ALT 47 Alkaline Phosphatase 73 Total Protein 7.9 Albumin 4.5 Globulin 3.4 Urine Opiates Screen NEGATIVE U Buprenorphine Qual NEGATIVE Ur Oxycodone Screen NEGATIVE Urine Methadone Screen NEGATIVE Urine Fentanyl Screen NEGATIVE Ur Barbiturates Screen NEGATIVE Ur Phencyclidine Scrn NEGATIVE Ur Amphetamines Screen NEGATIVE U Benzodiazepines Scrn NEGATIVE Urine Cocaine Screen NEGATIVE U Cannabinoids Screen NEGATIVE Ethyl Alcohol 289.0 H Management Discussion w/another healthcare provider: Hospitalist Treatment and Re-Evaluation Narrative: Patient is requesting admission for detox. Case was discussed with the hospitalist. She will admit the patient to her service. Patient understood and was agreeable with the plan. All questions were answered. Discharge Plan Dx/Rx/DC Orders Clinical Impression: Alcohol withdrawal, Desire for detoxification, Alcohol abuse, Elevated blood pressure reading Disposition Disposition: Acute Care Hospital [facility]
[2025-03-31 21:42] LABS: Hematocrit 47.5 % (40-54); Hemoglobin 16.2 g/dL (13.0-16.5); Immature Granulocytes Count 0.020 X10^3/uL (0.0-0.0); Mean Corp Hgb Conc 34.1 g/dL (32-36); Mean Corpuscular Volume 84.5 fL (80-94); Mean Platelet Vol. 9.9 fl (6.2-12.0); NRBC Flagged by Analyzer 0 % (0-5); POSITIVE DIFFERENTIAL YES; Platelet Count 607 K/mm3 (150-450); RBC Distribution Width CV 14.2 % (11.6-14.6); RBC Distribution Width SD 43.5 fl (35.1-43.9); Red Blood Count 5.62 M/mm3 (4.6-6.2); White Blood Count 12.5 K/mm3 (4.4-11.0)
[2025-03-31 21:47] LABS: Differential Indicated SCAN CRITERIA MET
[2025-03-31 22:04] VITALS: BP 125/1; PULSE 94; RESP 18; O2SAT 93
[2025-03-31 22:04] LABS: AST(SGOT) 54 U/L (<=37); Alanine Aminotransfer ALT/SGPT 47 U/L (<=46); Albumin, Serum 4.5 g/dL (3.5-5.0); Alkaline Phosphatase 73 U/L (40-129); Anion Gap 18 (5-15); BUN 10 mg/dL (4-19); BUN/Creat Ratio 9.7 RATIO (10-20); Bilirubin, Direct 0.15 mg/dL (0.00-0.30); Calcium,Total 9.3 mg/dL (7.6-11.0); Carbon Dioxide 26.2 mmol/L (21.0-32.0); Chloride 100 mmol/L (98-108); Estimated Creatinine Clearance 116.66 ml/min (50-250); Globulin 3.4 g/dL (2.2-4.2); Glucose 119 mg/dL (70-99); Magnesium 2.2 mg/dL (1.5-2.2); Potassium 3.8 mmol/L (3.3-5.1)
[2025-03-31 22:05] LABS: Alcohol, Blood (Medical)-Serum 289.0 mg/dL (<=10.0)
[2025-03-31 22:06] VITALS: BP 125/1; PULSE 94; RESP 18; TEMP 37.2; O2SAT 93
[2025-03-31 22:08] LABS: Barbiturate Urine NEGATIVE (< 200 ng/mL); Benzodiazepine Urine NEGATIVE (< 200 ng/mL); PCP Urine NEGATIVE (< 25 ng/mL); THC Urine NEGATIVE (< 50 ng/mL)
[2025-03-31 22:10] LABS: Differential Comment SCANNED
[2025-03-31 23:05] VITALS: BMI 29.5
[2025-03-31 23:11] VITALS: BP 138/93; PULSE 92; RESP 16; TEMP 36.3; O2SAT 97
[2025-03-31 23:31] VITALS: PULSE 92
[2025-03-31] MEDS: Lactated Ringers 1,000 ML 125 ML IV (23:31)
[2025-03-31] MEDS: Nicotine (PBKC) 21 MG Patch TD (23:53)
[2025-04-01] VITALS (8 sets, daily range): BP systolic 127–142; BP diastolic 79–89; PULSE 64–120; RESP 16–18; TEMP 36.6–36.8; O2SAT 92–95
--- OUTSIDE RECORDS SUMMARY | 2025-04-01 00:58 | XMS RPT_ITS | CCD ---
Author Organization [facility] Care Team Providers Care Change Control Analyst Name Role Phone Carol FAJARDO, Nikita Llanes Primary Care Provider NIKITA SORENSEN Primary Care NIKITA Galvan Primary Care Unavailabl NIKITA Rosas Primary Care Unavailvitor Sorensen MD, Nikita Llanes Primary Care Provider MADELYN CRAIN Attending Unavailable NIKITA SORENSEN Primary Care Unavailable Carol FAJARDO, Dr. Shelton Primary Care Provider Dr. Deep Holman DO Emergency Provider [phone] Neal FAJARDO, Dr. Lemon Admit Provider Neal FAJARDO, Dr. Lemon Attending Provider [phone] Neal FAJARDO, Dr. Lemon Other Provider Isac FAJARDO, Dr. Angela Vargas Attending Provider Isac FAJARDO, Dr. Angela Vargas Other Provider Black FAJARDO, Dr. Huddleston Attending Provider Unavailab le Nikita Sorensen Primary Care Unavailable Isabel Hoskins Attending Unavailable Xochilt De Jesus Admitting Unavailable Nikita Sorensen Primary Care Unavailable Xochilt De Jesus Consulting Unavailable Xochilt De Jesus Attending Unavailable Angela Chau Attending Unavailable Angela Chau Consulting Unavailable Angela Chau Attending Unavailable Nikita Sorensen Primary Care Unavailable Xochilt De Jesus Admitting Unavailable Xochilt De Jesus Consulting Unavailable Carol, Nikita Primary Care Unavailable Karo Cleaning Attending Unavailable Allergies Allergy Classification Reported Allergen(s) Allergy Type Date of Onset Reaction(s) Facility (20 sources) Cephalosporins (Antibiotic); Translations: [CEPHALOSPORINS] Propensity to adverse reactions to drug 5 Hives [facility] (20 sources) Penicillins; Translations: [PENICILLINS] Propensity to adverse reactions to drug 2 [employer] Work Phone: (17 sources) Cephalexin Drug Allergy 6 [employer] Minerals (17 sources) Citronella Oil [facility]ensity [facility] adverse [facility] Current Medications Medication Drug Class(es) Dates [...] on above: Take 1 tablet by jannet once daily for 5 days. brompheniramine maleate 0.4 mg/ml / dextromethorphan hydrobromide 2 mg/ml / pseudoephedrine hydrochloride 6 mg/ml oral solution (1 source) alpha-Adrenergic Agonist, Uncompetitive U-hkbeun-Y-aspartat e Receptor Antagonist, Sigma-1 Agonist Start: 10-18-2019 take 10 mL by mouth four times daily as needed for cough brompheniramine-ps eudoephedrine-DM 2-30-10 MG/5ML syrup Take 10 mLs by mouth 4 times daily as needed for Cough 240 mL 0 10/18/2019 Active FLUoxetine 20 mg oral capsule (2 sources) Serotonin Reuptake Inhibitor Start: 02-13-2025 take 1 capsule by mouth once daily Fluoxetine 20 mg capsule Active 20 mg PO DAILY February 13, 2025 12:00am hydrocortisone 10 mg/ml topical cream (1 source) Corticosteroid Start: 02-05-2022 End: 02-19-2022 hydrocortisone 1 % cream Indications: Rash Apply to affected area three times daily for 14 days. 15 g 0 02/05/2022 02/19/2022 Active Comment on above: Apply to affected ar ea three times daily for 14 days. ibuprofen 400 mg oral tablet (3 sources) Nonsteroidal Anti-inflammatory Drug Start: 05-20-2023 End: 05-30-2023 take 1 tablet by mouth every six hours as needed for pain ibuprofen 400 MG tablet Take 1 tablet (400 mg) by mouth every 6 hours as needed for mild pain (1-3) (Take around the clock with Tylenol for the 48 hours after surgery. After 48 hours you may take as needed.) for up to 10 days. 30 tablet 0 05/20/2023 05/30/2023 Active metoprolol tartrate 25 mg oral tablet (1 source) beta-Adrenergic Susan Start: 02-16-2025 Metoprolol Tartrate 25 mg Tablet Active 12.5 mg PO TWICE A DAY 30 2 February 16, 2025 12:00am OLANZapine 20 mg oral tablet (2 sources) Atypical Antipsychotic Start: 02-13-2025 take 1 tablet by mouth at bedtime Olanzapine 20 mg tablet Active 20 mg PO AT BEDTIME February 13, 2025 12:00am pantoprazole 40 mg delayed release oral tablet (1 source) Proton Pump Inhibitor Start: 08-22-2020 take 1 tablet by mouth once daily pantoprazole (PROTONIX) 40 MG tablet take 1 tablet by mouth once daily 30 tablet 1 08/22/2020 Active Completed/Discontinued Medications Medication Drug Class(es) Dates Sig [...] End: 05-20-2023 diphenhydrAMINE (BENADryl) injection 12.5 mg [id number] 0.3 ml EPINEPHrine 1 mg/ml auto-injector (5 sources) alpha-Adrenergic Agonist, beta-Adrenergic Agonist, Catecholamine Start: 07-09-2021 EPINEPHrine (EPIPEN 2-KAMILA) 0.3 mg/0.3 mL auto-injector Inject 0.3 mL intramuscularly as needed. 2 Each 1 07/09/2021 Active Comment on above: Inject 0.3 mL intram uscularly as needed. famotidine 20 mg oral tablet (20 sources) Histamine-2 Receptor Antagonist Start: 04-19-2023 End: 02-13-2025 take 1 tablet by mouth once daily Famotidine 20 mg tablet Discontinued 20 mg PO DAILY 4 4 0 April 19, 2023 12:00am February 13, 2025 6:09pm Start: 05-02-2022 End: 02-13-2025 take 1 tablet by mouth once daily Famotidine 40 mg tablet Discontinued 40 mg PO DAILY April 19, 2023 12:00am February 13, 2025 6:09pm Comment on above: Take 40 mg by mouth. 2 ml fentaNYL 0.05 mg/ml injection (4 [...] End: 05-20-2023 meperidine (Demerol) injection 12.5 mg mupirocin 0.02 mg/mg topical ointment (20 sources) RNA Synthetase Inhibitor Antibacterial Start: 01-19-2022 End: 02-13-2025 Mupirocin 2 % ointment Discontinued 1 NMA TOPICAL TWICE A DAY as needed for MRSA 0 January 19, 2022 4:43pm February 13, 2025 3:07pm Start: 01-19-2022 mupirocin ([place] troban) 2 % ointment apply to affected area twice a day if needed 01/19/2022 Active 2 ml ondansetron 2 mg/ml injection (2 sources) Serotonin-3 Receptor Antagonist Start: 05-20-2023 End: 05-20-2023 ondansetron (Zofran) injection 4 mg oxyCODONE (2 sources) Opioid Agonist Start: 05-20-2023 End: 05-20-2023 oxyCODONE (Roxicodone) immediate release tablet 5 mg predniSONE 20 mg oral tablet (3 sources) Start: 04-19-2023 End: 02-13-2025 take 2 tablets by mouth once daily Prednisone 20 mg tablet Discontinued 40 mg PO DAILY 8 4 April 19, 2023 12:00am February 13, 2025 3:07pm Start: 04-19-2023 take 40 mg by mouth once daily Prednisone Active 40 MG PO DAILY 8 4 April 19, 2023 12:00am 5 ml sodium chloride 9 mg/ml injection [...] chloride 0.9% (NS) fl ush 10 mL sulfamethoxazole 800 mg / trimethoprim 160 mg oral tablet (4 sources) Dihydrofolate Reductase Inhibitor Antibacterial, Sulfonamide Antimicrobial Start: 01-19-2022 End: 02-13-2025 Sulfamethoxazole-Trimethopri m 800-160 mg tablet Discontinued 1 {tbl} PO TWICE A DAY 14 0 January 19, 2022 12:00am February 13, 2025 3:07pm Start: 01-19-2022 take 1 tablet by jannet th twice daily Sulfamethoxazole-Trimethoprim Active 1 T ABLET PO TWICE A DAY 14 January 19, 2022 12:00am terbinafine hydrochloride 10 mg/ml topical cream (7 [...] Problem Date Documented Date Episodic/Chronic Abdominal pain (4 sources) Abdominal pain; Translations: [Unspecified abdominal pain] 06-26-2021 Episodic Alcohol-related disorders (3 sources) Alcohol withdrawal syndrome; Translations: [Alcohol withdrawal syndrome] 02-13-2025 Chronic Allergic reactions (6 sources) Urticaria; Translations: [Urticaria, unspecified] 04-19-2023 Episodic Anxiety disorders (4 sources) Anxiety; Translations: [Anxiety disorder, unspecified] 10-17-2014 Chronic Bacterial infection; unspecified site (4 sources) Methicillin resistant Staphylococcus aureus infection; Translations: [Methicillin resistant Staphylococcus aureus infection, unspecified site] 01-27-2022 Episodic Cardiac dysrhythmias (4 sources) Sinus tachycardia; Translations: [Tachycardia, unspecified] 06-26-2021 [...] specified soft tissue disorders] 05-20-2023 Episodic Other eye disorders (3 sources) Subconjunctival hemorrhage of right eye; Translations: [Conjunctival hemorrhage, right eye] 02-13-2025 Episodic Other eye disorders (1 source) Conjunctival hemorrhage, right eye; Translations: [Conjunctival hemorrhage, right eye] Onset: 02-16-2025 Episodic Other screening for suspected conditions (not mental disorders or infectious disease) (1 source) Patient encounter status; Translations: [Encounter for screening for lipoid disorders] 05-01-2023 Episodic Other skin disorders (1 source) Eruption; Translations: [Rash and other nonspecific skin eruption] Episodic Residual codes; unclassified (20 sources) Asplenia following surgical procedure; 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] Onset: 04-12-2019 04-12-2019 Episodic Unclassified (2 sources) Readiness finding 02-13-2025 Unclassified (2 sources) Alcohol use, unspecified with withdrawal, unspecified; Translations: [Alcohol use, unspecified with withdrawal, unspecified] Onset: 02-16-2025 Viral infection (5 sources) Disease caused by 2019-nCoV; Translations: [COVID-19] [...] upper respiratory infection, unspecified] Onset: 06-11-2022 Episodic Results Test Name Value Interpretation Reference Range Facility Discharge Instructionon 01-29 Discharge Instruction [facility] Medical Records Department [address] [place] [id number] Instructions for Home/Discharge Instructions 02/16/25 1059 MR#: [id number] Acct: [id number] Name: ANNAMARIE LARIOS Rep #: [id number] : 1990 34 From: Angela Chau MD PCP: Dr. Nikita Sorensen MD Status:ADM IN Discharge Instructions DC O2, CPAP, BIPAP needs Home O2 Discharge instructions: No Dressing / Incision Discharge Activity: Return to Normal Activity Weight Bearing Status: Weight bearing as tolerated Dressing / Incision Call your doctor if you observe: Fever of 101 or Higher, Shortness of breath and Increased palpitations (irregular heartbeat) Follow Up Care Test Results: Test results from this visit will be discussed in further detail at your follow-up appointment, if applicable. Discharge Plan Admission Admit Date/Time: 02/13/25 18:49 Primary Reason for Your Visit: acute alcohol withdrawal Attending Provider: Angela Chau Primary Care Provider: Nikita Sorensen Consulting Providers: Xochilt De Jesus Instructions Patient Instructions: Alcohol Withdrawal: What to Expect Additional Instructions / Restrictions: follow up with ophthalmology within one week to evaluate right subconjuctival hemorrhage Discharge Orders/Prescriptions Prescriptions: New metoprolol tartrate 25 mg Tablet 12.5 mg PO BID Qty: 30 2RF Continued fluoxetine 20 mg capsule 20 mg PO DAILY olanzapine 20 mg tablet 20 mg PO QHS Referrals / Follow Up: Nikita Sorensen MD [Primary Care Provider] - In 1 Week Disposition Disposition (needs filled in before D/C Order can be placed): Home, Self Care 02/16/25 1059 Angela Chau MD CC: Dr. Nikita Sorensen MD; Dr. Xochilt De Jesus MD Signed Normal [facility] Echocardiogram study reportO rdered By: Karo Cleaning on 02-15-2025 Study report [facility] [address] [place] [address] Echo Complete 02/14/25 1454 MR#: [id number] Acct: [id number] Name: ANNAMARIE LARIOS Rep #:[id number] : 1990 34 From: Karo Espinoza Attending Dr: Dr. Angela Chau MD Status: ADM IN Ordering Dr: Angela Chau MD Date: 02/14/25 Location: SD3 Sex: M C Admitted: 02/13/25 Reason For Study Reason For Study: Arrhythmia Procedure This was a 2D Doppler, Color Flow transthoracic echocardiogram. The study was technically difficult. Exam performed portable in patient room. Left Ventricle Normal LV size. Increased LV wall thickness. Left ventricular systolic function is hyperdynamic. Stage 1 diastolic dysfunction. No regional wall motion abnormalities noted. Right Ventricle Normal size and thickness. Normal systolic function. Atria The left and right atria are normal. Mitral Valve The mitral valve is structurally normal. No prolapse or stenosis seen. There is no vegetation seen on the mitral valve. Trivial mitral valve insufficiency. Tricuspid Valve Normal tricuspid valve. No vegetations identified. Trivial tricuspid valve insufficiency. Aortic Valve Trisinus/trileaflet aortic valve. There is no aortic valvular vegetation. There is no aortic stenosis. No aortic valve insufficiency. Pulmonic Valve The pulmonic valve is not well visualized. Trivial eccentric pulmonic valve insufficiency. MMode/2D Measurements & Calculations LVIDd: 4.7 cm IVSd: 1.1 cm Ao root diam: 3.3 cm LVIDs: 2.9 cm LVPWd: 0.92 cm FS: 38.7 % LAV(MOD-bp): 26.3 ml SV(MOD-sp4): 37.1 ml LVAd ap4: 27.0 cm2 LAV(MOD-bp) Indexed: 12.9 ml/m2 LVLd ap4: 7.7 cm SI(MOD-sp4): 18.2 ml/m2 LAV(MOD-sp2): 30.8 ml EDV(MOD-sp4): 77.4 ml LAV(MOD-sp4): 21.8 ml EDV(sp4-el): 80.6 ml LVAs ap4: 18.0 cm2 LVLs ap4: 7.0 cm ESV(MOD-sp4): 40.2 ml ESV(sp4-el): 39.1 ml EF(MOD-sp4): 48.0 % EF(sp4-el): 51.5 % SV(sp4-el): 41.5 ml LA dimension(2D): 3.3 cm LA A4 area: 10.2 cm2 TAPSE: 1.7 cm RA A4 area: 7.6 cm2 Time Measurements MV dec time: 0.23 sec Doppler Measurements & Calculations MV E max margarette: 58.5 cm/sec Lat Peak E' Margarette: 15.7 cm/sec Med Peak E' Margarette: 9.9 cm/sec MV A max margarette: 49.9 cm/sec E/E' lat: 3.7 E/E' med: 5.9 MV E/A: 1.2 MV V2 max: 66.9 cm/sec MV P1/2t max margarette: 60.4 cm/sec Ao V2 max: 134.2 cm/sec MV max P.8 mmHg MV P1/2t: 69.2 msec Ao max P.2 mmHg MV V2 mean: 41.0 cm/sec MV mean P.75 mmHg MV dec slope: 255.6 cm/sec2 MV V2 VTI: 13.2 cm MVA(P1/2t): 3.2 cm2 LV V1 max: 105.5 cm/sec PA V2 max: 104.1 cm/sec LV V1 max P.5 mmHg LV V1 mean P.3 mmHg LV V1 mean: 70.9 cm/sec LV V1 VTI: 16.8 cm ECHO/Echo Complete Interpretation Summary Increased LV wall thickness Left ventricular systolic function is hyperdynamic. No regional wall motion abnormalities noted. No vegetations identified. There is no vegetation seen on the mitral valve. The mitral valve is structurally normal. No prolapse or stenosis seen. Ordering Physician: Angela Chau Performed By: Brad Felix RCS 02/15/25 1201 Date _ Karo Cleaning MD CC: Dr. Nikita Sorensen MD; Dr. Angela Chau MD ~ Date Dictated: 02/14/25 1454 Date Transcribed: 02/15/25 1202 Cable Installation Technician: Signed [facility] Absolute lymphocyte countOrd ered By: Xochilt De Jesus on 02-14-2025 Lymphocytes Auto (Unsp spec) [#/Vol] 2.85 10*3/uL 0.83-4.51 [facility] Absolute neutrophil countOrd ered By: Xochilt De Jesus on 02-14-2025 Neutrophils (Bld) [#/Vol] 8.4 10*3/uL High 2.0-7.7 [facility] Anion gap in Serum or Plasma Ordered By: Xochilt De Jesus on 02-14-2025 Anion gap [Moles/Vol] 15 mmol/L 5-15 [facility] Automated lymphocyte count a s percentage of total leukocytesOrdered By: Xochilt De Jesus on 02-14-2025 Lymphocytes/100 WBC Auto (Unsp spec) 22.1 % 19-41 [facility] BUN/creatinine ratioOrdered By: Xochilt De Jesus on 02-14-2025 Urea nitrogen/Creatinine [Mass ratio] 9.8 mg/mg Low 10-20 [facility] Basophil percentageOrdered B y: Xochilt De Jesus on 02-14-2025 Basophils/100 WBC (Bld) 0.9 % 0-1 [facility] Bilirubin, totalOrdered By: Xochilt De Jesus on 02-14-2025 Bilirubin [Mass/Vol] 0.88 mg/dL 0.00-1.30 [facility] CBC W/Diff, Automatedon 01-28 Absolute Lymph 2.85 X10 3/uL Normal 0.83-4.51 [facility] Comment on above: Performed By: #### L 100.0100, L500.4050 ####[facility] [address] [place], [address] Absolute Neut 8.4 X10 3/uL High 2.0-7.7 [facility] Comment on above: Performed By: #### L 100.0100, L500.4050 ####[facility] [address] [place], [address] Basophils/100 WBC (Bld) 0.9 % Normal 0-1 [facility] Comment on above: Performed By: #### L 100.0100, L500.4050 ####[facility] [address] [place], [address] Eosinophils/100 WBC (Bld) 2.1 % Normal 0-5 [facility] Comment on above: Performed By: #### L 100.0100, L500.4050 ####[facility] [address] [place], [address] Erythrocyte distribution width (RBC) [Ratio] 15.3 % High 11.6-14.6 [facility] Comment on above: Performed By: #### L 100.0100, L500.4050 ####[facility] [address] [place], [address] Hematocrit (Bld) [Volume fraction] 43.7 % Normal 40-54 [facility] Comment on above: Performed By: #### L 100.0100, L500.4050 ####[facility] [address] [place], [address] Hemoglobin (Bld) [Mass/Vol] 14.8 g/dL Normal 13.0-16.5 [facility] Comment on above: Performed By: #### L 100.0100, L500.4050 ####[facility] [address] [place], [address] IG% 0.500 Normal 0.0-0.9 [facility] Comment on above: Result Comment: IG% - Immature Granulocytes (promyelocytes, myelocytes and metamyelocytes) > 1% indicates that a LEFT SHIFT is Present. Performed By: #### L 100.0100, L500.4050 ####[facility] [address] [place], [address] Lymphocytes/100 WBC (Bld) 22.1 % Normal 19-41 [facility] Comment on above: Performed By: #### L 100.0100, L500.4050 ####[facility] [address] [place], [address] MCH (RBC) [Entitic mass] 29.0 pg Normal 27.0-32.0 [facility] Comment on above: Performed By: #### L 100.0100, L500.4050 ####[facility] [address] [place], [address] MCHC (RBC) [Mass/Vol] 33.9 g/dL Normal 32-36 [facility] Comment on above: Performed By: #### L 100.0100, L500.4050 ####[facility] [address] [place], [address] MCV (RBC) [Entitic vol] 85.7 fL Normal 80-94 [facility] Comment on above: Performed By: #### L 100.0100, L500.4050 ####[facility] [address] [place], [address] Monocytes/100 WBC (Bld) 9.2 % Normal 0-10 [facility] Comment on above: Performed By: #### L 100.0100, L500.4050 ####[facility] [address] [place], [address] Neutrophils/100 WBC (Bld) 65.2 % Normal 47-70 [facility] Comment on above: Performed By: #### L 100.0100, L500.4050 ####[facility] [address] [place], [address] Nucleated RBC (Bld) [#/Vol] 0 10*3/uL Normal 0-5 [facility] Comment on above: Performed By: #### L 100.0100, L500.4050 ####[facility] [address] [place], [address] Platelet mean volume (Bld) [Entitic vol] 10.8 fL Normal 6.2-12.0 [facility] Comment on above: Performed By: #### L 100.0100, L500.4050 ####[facility] [address] [place], [address] Platelets (Bld) [#/Vol] 309 10*3/uL Normal 150-450 [facility] Comment on above: Performed By: #### L 100.0100, L500.4050 ####[facility] [address] [place], [address] RBC (Bld) [#/Vol] 5.10 10*6/uL Normal 4.6-6.2 [facility] Comment on above: Performed By: #### L 100.0100, L500.4050 ####[facility] [address] [place], [address] RDW SD 48.2 fl High 35.1-43.9 [facility] Comment on above: Performed By: #### L 100.0100, L500.4050 ####[facility] [address] [place], [address] WBC (Bld) [#/Vol] 12.9 10*3/uL High 4.4-11.0 [facility] Comment on above: Performed By: #### L 100.0100, L500.4050 ####[facility] [address] [place], [address] CTA Chest W/WO Contraston CTA Chest W/WO Contrast [facility] Services [address] [place] [address] CTA Chest W/WO Contrast MR#: [id number] Acct: [id number] Name: ANNAMARIE LARIOS Rep #: [id number] : 1990 M 34 From: Vinnie Barrett MD PCP: Dr. Nikita Sorensen MD Status: ADM IN Study: CTA Chest W/WO Contrast Date of Exam: 02/14/25 Exam# [id number] Ordering Dr: Angela Chau MD PROCEDURE: CTA CHEST W/WO CONTRAST 02/14/2025 REASON FOR EXAM: ELEVATED D DIMER TECHNIQUE: CTA CHEST W/WO CONTRAST Multiplanar Sagittal and Coronal images were obtained. 3D post processing was performed. CONTRAST: Isovue 370 VOLUME: 100 mL One or more dose reduction techniques were used (e.g., Automated exposure control, adjustment of the mA and/or kV according to patient size, use of iterative reconstruction technique). RADIATION DOSE SUMMARY: DLP: 526.88 mGycm COMPARISON: None. FINDINGS: PULMONARY VESSELS: No filling defects suspicious for pulmonary arterial emboli. Normal caliber main pulmonary trunk. No evidence for right heart strain. LUNGS/PLEURA: Clear. No airspace consolidation or findings of pulmonary edema. No pneumothorax or pleural effusions. Central airways are patent. Mild bibasilar scattered discoid atelectasis. MEDIASTINUM: Unremarkable. No lymphadenopathy. HEART: Normal in size. No pericardial effusion. No significant coronary artery calcification. THORACIC AORTA: Normal in course and caliber. No significant atherosclerotic disease. UPPER ABDOMEN: Marked diffuse hepatic steatosis. Otherwise unremarkable. BONES: No significant abnormality. CT/CTA Chest W/WO Contrast IMPRESSION: 1. No acute intrathoracic pathology. No pulmonary arterial emboli. 2. Prominent diffuse hepatic steatosis. Reading Location: [id number] CC: Dr. Nikita Sorensen MD; Dr. Angela Chau MD Cable Installation Technician: Signed Normal [facility] Carbon dioxide, total [Moles /volume] in Central venous bloodOrdered By: Xochilt De Jesus on 02-14-2025 CO2 [Moles/Vol] 26.4 mmol/L 21.0-32.0 [facility] Chloride assayOrdered By: Darlene De Jesus on 02-14-2025 Chloride [Moles/Vol] 98 mmol/L 98-108 [facility] Comprehensive Metabolic Prof ilon 02-14-2025 Albumin [Mass/Vol] 3.8 g/dL Normal 3.5-5.0 [facility] Comment on above: Performed By: #### L 100.0100, L500.4050 ####[facility] [address] [facility] [address] Albumin/Globulin [Mass ratio] 1.4 {ratio} Normal 0.9-2.4 [facility] Comment on above: Performed By: #### L 100.0100, L500.4050 ####[facility] [address] [place], [address] ALK PHOS 70 U/L Normal 40-129 [facility] Comment on above: Performed By: #### L 100.0100, L500.4050 ####[facility] [address] [place], [address] ALT [Catalytic activity/Vol] 145 U/L High <=46 [facility] Comment on above: Performed By: #### L 100.0100, L500.4050 ####[facility] [address] [place], [address] AST [Catalytic activity/Vol] 168 U/L High <=37 [facility] Comment on above: Performed By: #### L 100.0100, L500.4050 ####[facility] [address] [place], [address] Bilirubin [Mass/Vol] 0.88 mg/dL Normal 0.00-1.30 [facility] Comment on above: Performed By: #### L 100.0100, L500.4050 ####[facility] [address] [place], [address] BUN/CRE 9.8 RATIO Low 10-20 [facility] Comment on above: Performed By: #### L 100.0100, L500.4050 ####[facility] [address] [place], [address] Calcium [Mass/Vol] 8.3 mg/dL Normal 7.6-11.0 [facility] Comment on above: Performed By: #### L 100.0100, L500.4050 ####[facility] [address] [place], [address] Chloride [Moles/Vol] 98 mmol/L Normal 98-108 [facility] Comment on above: Performed By: #### L 100.0100, L500.4050 ####[facility] [address] [place], [address] CO2 [Moles/Vol] 26.4 mmol/L Normal 21.0-32.0 [facility] [facility] Comment on above: Performed By: #### L 100.0100, L500.4050 ####[facility] [address] [place], [address] Creatinine [Mass/Vol] 0.91 mg/dL Normal 0.70-1.20 [facility] Comment on above: Performed By: #### L 100.0100, L500.4050 ####[facility] [address] [place], [address] ECRCL 124.65 ml/min Normal 50-250 [facility] Comment on above: Performed By: #### L 100.0100, L500.4050 ####[facility] [address] [place], [address] GAP 15 Normal 5-15 [facility] Comment on above: Performed By: #### L 100.0100, L500.4050 ####[facility] [address] [place], [address] GFR/1.73 sq M.predicted among non-blacks MDRD (S/P/Bld) [Vol rate/Area] 112 mL/min/{1.73_m2} Normal >60 [facility] Comment on above: Result Comment: mL/m in/1.73m2 CKD-EPI Creatinine Equation (2020) Performed By: #### L 100.0100, L500.4050 ####[facility] [address] [place], [address] Globulin (S) [Mass/Vol] 2.7 g/dL Normal 2.2-4.2 [facility] Comment on above: Performed By: #### L 100.0100, L500.4050 ####[facility] [address] [place], [address] Glucose [Mass/Vol] 80 mg/dL Normal 70-99 [facility] Comment on above: Performed By: #### L 100.0100, L500.4050 ####[facility] [address] [place], [address] Potassium [Moles/Vol] 3.6 mmol/L Normal 3.3-5.1 [facility] Comment on above: Performed By: #### L 100.0100, L500.4050 ####[facility] [address] [place], [address] Sodium [Moles/Vol] 139 mmol/L Normal 133-145 [facility] Comment on above: Performed By: #### L 100.0100, L500.4050 ####[facility] [address] [place], [address] T PROT 6.5 g/dL Normal 5.9-8.4 [facility] Comment on above: Performed By: #### L 100.0100, L500.4050 ####[facility] [address] [place], [address] Urea nitrogen [Mass/Vol] 9 mg/dL Normal 4-19 [facility] Comment on above: Performed By: #### L 100.0100, L500.4050 ####[facility] [address] [place], [address] D-Dimer Quantitative (DVT/PE )on 02-14-2025 D-DIMER QUANT 2.65 FEU/ug/m Invalid Interpretation Code 0.27-0.49 [facility] Comment on above: Result Comment: D-Di bhargav ELEVATED (>0.49): Additional studies and clinical assessments are indicated to conclude diagnosis of: Deep Vein Thrombosis (DVT) or Pulmonary Embolism (PE) CRITICAL VALUE CALLED TO KAREEM GONZALEZ 02/14/25 Che2 Josselyn Flor. RESULTS READ BACK BY SAME. Performed By: #### L 300.8000, L501.9520 #### [facility] Laboratory [address] [place], [address] Echo Completeon 02-14-2025 Echo Complete [facility] [address] [place] [address] Echo Complete 02/14/25 1454 MR#: [id number] Acct: [id number] Name: ANNAMARIE LARIOS Heraclio Rep #: [id number] : 1990 34 From: Karo Cleaning MD Attending Dr: Dr. Angela Chau MD Status: AD M IN Ordering Dr: Angela Chau MD Date: 02/14/25 Location: [facility]3 Sex: M C Admitted: 02/13/25 Reason For Study Reason For Study: Arrhythmia Procedure This was a 2D Doppler, Color Flow transthoracic echocardiogram. The study was technically difficult. Exam performed portable in patient room. Left Ventricle Normal LV size. Increased LV wall thickness. Left ventricular systolic function is hyperdynamic. Stage 1 diastolic dysfunction. No regional wall motion abnormalities noted. Right Ventricle Normal size and thickness. Normal systolic function. Atria The left and right atria are normal. Mitral Valve The mitral valve is structurally normal. No prolapse or stenosis seen. There is no vegetation seen on the mitral valve. Trivial mitral valve insufficiency. Tricuspid Valve Normal tricuspid valve. No vegetations identified. Trivial tricuspid valve insufficiency. Aortic Valve Trisinus/trileaflet aortic valve. There is no aortic valvular vegetation. There is no aortic stenosis. No aortic valve insufficiency. Pulmonic Valve The pulmonic valve is not well visualized. Trivial eccentric pulmonic valve insufficiency. MMode/2D Measurements Calculations LVIDd: 4.7 cm IVSd: 1.1 cm Ao root diam: 3.3 cm LVIDs: 2.9 cm LVPWd: 0.92 cm FS: 38.7 % LAV(MOD-bp): 26.3 ml SV(MOD-sp4): 37.1 ml LVAd ap4: 27.0 cm2 LAV(MOD-bp) Indexed: 12.9 ml/m2 LVLd ap4: 7.7 cm SI(MOD-sp4): 18.2 ml/m2 LAV(MOD-sp2): 30.8 ml EDV(MOD-sp4): 77.4 ml LAV(MOD-sp4): 21.8 ml EDV(sp4-el): 80.6 ml LVAs ap4: 18.0 cm2 LVLs ap4: 7.0 cm ESV(MOD-sp4): 40.2 ml ESV(sp4-el): 39.1 ml EF(MOD-sp4): 48.0 % EF(sp4-el): 51.5 % SV(sp4-el): 41.5 ml LA dimension(2D): 3.3 cm LA A4 area: 10.2 cm2 TAPSE: 1.7 cm RA A4 area: 7.6 cm2 Time Measurements MV dec time: 0.23 sec Doppler Measurements Calculations MV E max margarette: 58.5 cm/sec Lat Peak E' Margarette: 15.7 cm/sec Med Peak E' Margarette: 9.9 cm/sec MV A max margarette: 49.9 cm/sec E/E' lat: 3.7 E/E' med: 5.9 MV E/A: 1.2 MV V2 max: 66.9 cm/sec MV P1/2t max margarette: 60.4 cm/sec Ao V2 max: 134.2 cm/sec MV max P.8 mmHg MV P1/2t: 69.2 msec Ao max P.2 mmHg MV V2 mean: 41.0 cm/sec MV mean P.75 mmHg MV dec slope: 255.6 cm/sec2 MV V2 VTI: 13.2 cm MVA(P1/2t): 3.2 cm2 LV V1 max: 105.5 cm/sec PA V2 max: 104.1 cm/sec LV V1 max P.5 mmHg LV V1 mean P.3 mmHg LV V1 mean: 70.9 cm/sec LV V1 VTI: 16.8 cm ECHO/Echo Complete Interpretation Summary Increased LV wall thickness Left ventricular systolic function is hyperdynamic. No regional wall motion abnormalities noted. No vegetations identified. There is no vegetation seen on the mitral valve. The mitral valve is structurally normal. No prolapse or stenosis seen. Ordering Physician: Angela Chau Performed By: Brad Felix RCS 02/15/25 1201 Date Karo Cleaning MD CC: Dr. Nikita Sorensen MD; Dr. Angela Chau MD Date Dictated: 02/14/25 1454 Date Transcribed: 02/15/25 1202 Cable Installation Technician: Signed Normal [facility] Eosinophil percentageOrdered By: Xochilt De Jesus on 02-14-2025 Eosinophils/100 WBC (Bld) 2.1 % 0-5 [facility] Erythrocyte distribution wid th ratioOrdered By: Xochilt De Jesus on 02-14-2025 Erythrocyte distribution width (RBC) [Ratio] 15.3 % High 11.6-14.6 [facility] Erythrocyte distribution wid th standard deviationOrdered By: Xochilt De Jesus on 02-14-2025 Erythrocyte distribution width (RBC) [Ratio] 48.2 fl High 35.1-43.9 [facility] Glomerular filtration rate ( GFR) estimation/1.73 sq m using serum, plasma, or whole bOrdered By: Xochilt De Jesus on 02-14-2025 GFR/1.73 sq M.predicted among non-blacks MDRD (S/P/Bld) [Vol rate/Area] 112 mL/min/{1.73_m2} >60 [facility] Comment on above: mL/min/1.73m2 CKD-EP I Creatinine Equation (2020) Hematocrit Auto (Bld) [Volum e fraction]Ordered By: Xochilt De Jesus on 02-14-2025 Hematocrit (Bld) [Volume fraction] 43.7 % 40-54 [facility] Hemoglobin measurementOrdere d By: Xochilt De Jesus on 02-14-2025 Hemoglobin (Bld) [Mass/Vol] 14.8 g/dL 13.0-16.5 [facility] Immature granulocytes/100 WB C Auto (Bld)Ordered By: Xochilt De Jesus on 02-14-2025 Immature granulocytes/100 WBC (Bld) 0.500 % 0.0-0.9 [facility] Comment on above: IG% - Immature Granu locytes (promyelocytes, myelocytes and metamyelocytes) > 1% indicates that a LEFT SHIFT is Present. Laboratory - Chemistry and C hemistry - challengeOrdered By: Xochilt De Jesus on 02-14-2025 AST [Catalytic activity/Vol] 168 U/L High <38 [facility] MCV (mean corpuscular volume ) determinationOrdered By: Xochilt De Jesus on 02-14-2025 MCV (RBC) [Entitic vol] 85.7 fL 80-94 [facility] Mean corpuscular hemoglobin (MCH) determinationOrdered By: Xochilt De Jesus on 02-14-2025 MCH (RBC) [Entitic mass] 29.0 pg 27.0-32.0 [facility] Mean corpuscular hemoglobin concentration (MCHC) determinationOrdered By: Xochilt De Jesus on 02-14-2025 MCHC (RBC) [Mass/Vol] 33.9 g/dL 32-36 [facility] Mean platelet volume determi nationOrdered By: Xochilt De Jesus on 02-14-2025 Platelet mean volume (Bld) [Entitic vol] 10.8 fL 6.2-12.0 [facility] Monocyte percentageOrdered B y: Xochilt De Jesus on 02-14-2025 Monocytes/100 WBC (Bld) 9.2 % 0-10 [facility] Neutrophil percentageOrdered By: Xochilt De Jesus on 02-14-2025 Neutrophils/100 WBC (Bld) 65.2 % 47-70 [facility] Nucleated red blood cell per centageOrdered By: Xochilt De Jesus on 02-14-2025 Nucleated RBC/100 WBC (Bld) [Ratio] 0 % 0-5 [facility] Platelet countOrdered By: Darlene De Jesus on 02-14-2025 Platelets (Bld) [#/Vol] 309 10*3/uL 150-450 [facility] Potassium measurement (mass/ volume)Ordered By: Xochilt De Jesus on 02-14-2025 Potassium (Unsp spec) [Mass/Vol] 3.6 mmol/L 3.3-5.1 [facility] RBC Auto (Bld) [#/Vol]Ordere d By: Xochilt De Jesus on 02-14-2025 RBC (Bld) [#/Vol] 5.10 10*6/uL 4.6-6.2 [facility] Serum creatinine measurement (mass/volume)Ordered By: Xochilt De Jesus on 02-14-2025 Creatinine [Mass/Vol] 0.91 mg/dL 0.70-1.20 [facility] Serum globulin measurementOr dered By: Xochilt De Jesus on 02-14-2025 Globulin (S) [Mass/Vol] 2.7 g/dL 2.2-4.2 [facility] Serum glucose measurement (m ass/volume)Ordered By: Xochilt De Jesus on 02-14-2025 Glucose [Mass/Vol] 80 mg/dL 70-99 [facility] Serum or plasma alanine murillo otransferase (ALT) measurementOrdered By: Xochilt De Jesus on 02-14-2025 ALT [Catalytic activity/Vol] 145 U/L High <47 [facility] Serum or plasma albumin long urement (mass/volume)Ordered By: Xochilt De Jesus on 02-14-2025 Albumin [Mass/Vol] 3.8 g/dL 3.5-5.0 [facility] Serum or plasma albumin/glob ulin mass ratioOrdered By: Xochilt De Jesus on 02-14-2025 Albumin/Globulin [Mass ratio] 1.4 {ratio} 0.9-2.4 [facility] Serum or plasma alkaline gunnar sphatase measurementOrdered By: Xochilt De Jesus on 02-14-2025 ALP [Catalytic activity/Vol] 70 U/L 40-129 [facility] Serum or plasma calcium long urement (mass/volume)Ordered By: Xochilt De Jesus on 02-14-2025 Calcium [Mass/Vol] 8.3 mg/dL 7.6-11.0 [facility] Serum or plasma urea nitroge n measurement (mass/volume)Ordered By: Xochilt De Jesus on 02-14-2025 Urea nitrogen [Mass/Vol] 9 mg/dL 4-19 [facility] Sodium levelOrdered By: Harman De Jesus on 02-14-2025 Sodium [Moles/Vol] 139 mmol/L 133-145 [facility] TSH DL <= 0.005 mIU/L QnOrde red By: Angela Chau on 02-14-2025 TSH Qn 3.370 uIU/mL 0.300-4.200 [facility] Thyroid Stim Hormone (TSH)on 02-14-2025 TSH 3.370 uIU/mL Normal 0.300-4.200 [facility] Comment on above: Performed By: #### L 300.8000, L501.9520 #### [facility] Laboratory [facility] [address] [place], [place], [id number] Total proteinOrdered By: Nesha De Jesus on 02-14-2025 Protein [Mass/Vol] 6.5 g/dL 5.9-8.4 [facility] White blood cell (WBC) count Ordered By: Xochilt De Jesus on 02-14-2025 WBC (Bld) [#/Vol] 12.9 10*3/uL High 4.4-11.0 [facility] Absolute lymphocyte countOrd ered By: Deep Holman on 02-13-2025 Lymphocytes Auto (Unsp spec) [#/Vol] 2.77 10*3/uL 0.83-4.51 [facility] Absolute neutrophil countOrd ered By: Deep Holman on 02-13-2025 Neutrophils (Bld) [#/Vol] 8.4 10*3/uL High 2.0-7.7 [facility] Alcohol, Blood (Medical)-Ser umon 02-13-2025 SERUM ETOH 321.0 mg/dL Invalid Interpretation Code <=10.0 [facility] Comment on above: Result Comment: Crit ical Result(s) Called [facility] at: 1626 by: DALY??Results read back by same. This test is for medical purposes only. The legal definition of intoxication varies according to local law. Performed By: #### L 501.9100, L505.5000, L100.0100 #### [facility] [place], [address] Amphetamine detection with 1 000 ng/mL as cutoffOrdered By: Deep Holman on 02-13-2025 Amphetamines Screen method >1000 ng/mL Ql (U) Negative < 200 ng/mL [facility] Anion gap in Serum or Plasma Ordered By: Deep Holman on 02-13-2025 Anion gap [Moles/Vol] 24 mmol/L High 5-15 [facility] Automated lymphocyte count a s percentage of total leukocytesOrdered By: Deep Holman on 02-13-2025 Lymphocytes/100 WBC Auto (Unsp spec) 22.1 % 19-41 [facility] BUN/creatinine ratioOrdered By: Deep Holman on 02-13-2025 Urea nitrogen/Creatinine [Mass ratio] 12.4 mg/mg 10-20 [facility] Basophil percentageOrdered B y: Deep Holman on 02-13-2025 Basophils/100 WBC (Bld) 1.2 % High 0-1 [facility] Bilirubin, totalOrdered By: Deep Holman on 02-13-2025 Bilirubin [Mass/Vol] 0.61 mg/dL 0.00-1.30 [facility] CBC W/Diff, Automatedon 01-28 Absolute Lymph 2.77 X10 3/uL Normal 0.83-4.51 [facility] Comment on above: Performed By: #### L 501.9100, L505.5000, L100.0100 #### [facility] Laboratory [address] [place], [address] Absolute Neut 8.4 X10 3/uL High 2.0-7.7 [facility] Comment on above: Performed By: #### L 501.9100, L505.5000, L100.0100 #### [facility] [address] [place], [address] Basophils/100 WBC (Bld) 1.2 % High 0-1 [facility] Comment on above: Performed By: #### L 501.9100, L505.5000, L100.0100 #### [facility] [address] [place], [address] Eosinophils/100 WBC (Bld) 0.1 % Normal 0-5 [facility] Comment on above: Performed By: #### L 501.9100, L505.5000, L100.0100 #### [facility] [address] [place], [address] Erythrocyte distribution width (RBC) [Ratio] 15.1 % High 11.6-14.6 [facility] Comment on above: Performed By: #### L 501.9100, L505.5000, L100.0100 #### [facility] [address] [place], [address] Hematocrit (Bld) [Volume fraction] 46.6 % Normal 40-54 [facility] Comment on above: Performed By: #### L 501.9100, L505.5000, L100.0100 #### [facility] [address] [place], [address] Hemoglobin (Bld) [Mass/Vol] 16.2 g/dL Normal 13.0-16.5 [facility] Comment on above: Performed By: #### L 501.9100, L505.5000, L100.0100 #### [facility] [address] [place], [address] IG% 0.400 Normal 0.0-0.9 [facility] Comment on above: Result Comment: IG% - Immature Granulocytes (promyelocytes, myelocytes and metamyelocytes) > 1% indicates that a LEFT SHIFT is Present. Performed By: #### L 501.9100, L505.5000, L100.0100 #### [facility] [address] [place], [address] Lymphocytes/100 WBC (Bld) 22.1 % Normal 19-41 [facility] Comment on above: Performed By: #### L 501.9100, L505.5000, L100.0100 #### [facility] [address] [place], [address] MCH (RBC) [Entitic mass] 29.3 pg Normal 27.0-32.0 [facility] Comment on above: Performed By: #### L 501.9100, L505.5000, L100.0100 #### [facility] [address] [place], [address] MCHC (RBC) [Mass/Vol] 34.8 g/dL Normal 32-36 [facility] Comment on above: Performed By: #### L 501.9100, L505.5000, L100.0100 #### [facility] [address] [place], [address] MCV (RBC) [Entitic vol] 84.3 fL Normal 80-94 [facility] Comment on above: Performed By: #### L 501.9100, L505.5000, L100.0100 #### [facility] [address] [place], [address] Monocytes/100 WBC (Bld) 9.5 % Normal 0-10 [facility] Comment on above: Performed By: #### L 501.9100, L505.5000, L100.0100 #### [facility] [address] [place], [address] Neutrophils/100 WBC (Bld) 66.7 % Normal 47-70 [facility] Comment on above: Performed By: #### L 501.9100, L505.5000, L100.0100 #### [facility] [address] [place], [address] Nucleated RBC (Bld) [#/Vol] 0 10*3/uL Normal 0-5 [facility] Comment on above: Performed By: #### L 501.9100, L505.5000, L100.0100 #### [facility] [address] [place], [address] Platelet mean volume (Bld) [Entitic vol] 10.1 fL Normal 6.2-12.0 [facility] Comment on above: Performed By: #### L 501.9100, L505.5000, L100.0100 #### [facility] [address] [place], [address] Platelets (Bld) [#/Vol] 354 10*3/uL Normal 150-450 [facility] Comment on above: Performed By: #### L 501.9100, L505.5000, L100.0100 #### [facility] [address] [place], [address] RBC (Bld) [#/Vol] 5.53 10*6/uL Normal 4.6-6.2 [facility] Comment on above: Performed By: #### L 501.9100, L505.5000, L100.0100 #### [facility] [address] [place], [address] RDW SD 46.5 fl High 35.1-43.9 [facility] Comment on above: Performed By: #### L 501.9100, L505.5000, L100.0100 #### [facility] [address] [place], [address] WBC (Bld) [#/Vol] 12.5 10*3/uL High 4.4-11.0 [facility] Comment on above: Performed By: #### L 501.9100, L505.5000, L100.0100 #### [facility] [address] [place], [address] Carbon dioxide, total [Moles /volume] in Central venous bloodOrdered By: Deep Holman on 02-13-2025 CO2 [Moles/Vol] 21.8 mmol/L 21.0-32.0 [facility] Chloride assayOrdered By: Michael Holman on 02-13-2025 Chloride [Moles/Vol] 92 mmol/L Low 98-108 [facility] Comprehensive Metabolic Prof ilon 02-13-2025 Albumin [Mass/Vol] 4.4 g/dL Normal 3.5-5.0 [facility] Comment on above: Performed By: #### L 500.4050 #### [facility] [address] [place], [address] Albumin/Globulin [Mass ratio] 1.3 {ratio} Normal 0.9-2.4 [facility] Comment on above: Performed By: #### L 500.4050 #### [facility] [address] [place], [address] ALK PHOS 91 U/L Normal 40-129 [facility] Comment on above: Performed By: #### L 500.4050 #### [facility] [address] [place], [address] ALT [Catalytic activity/Vol] 188 U/L High <=46 [facility] Comment on above: Performed By: #### L 500.4050 #### [facility] [address] [place], [address] AST [Catalytic activity/Vol] 227 U/L High <=37 [facility] Comment on above: Performed By: #### L 500.4050 #### [facility] [address] [place], [address] Bilirubin [Mass/Vol] 0.61 mg/dL Normal 0.00-1.30 [facility] Comment on above: Performed By: #### L 500.4050 #### [facility] [address] [place], [address] BUN/CRE 12.4 RATIO Normal 10-20 [facility] Comment on above: Performed By: #### L 500.4050 #### [facility] [address] [place], [address] Calcium [Mass/Vol] 8.8 mg/dL Normal 7.6-11.0 [facility] Comment on above: Performed By: #### L 500.4050 #### [facility] [address] [place], [address] Chloride [Moles/Vol] 92 mmol/L Low 98-108 [facility] Comment on above: Performed By: #### L 500.4050 #### [facility] [address] [place], [address] CO2 [Moles/Vol] 21.8 mmol/L Normal 21.0-32.0 [facility] Comment on above: Performed By: #### L 500.4050 #### [facility] [address] [place], [address] Creatinine [Mass/Vol] 0.98 mg/dL Normal 0.70-1.20 [facility] Comment on above: Performed By: #### L 500.4050 #### [facility] [address] [place], [address] ECRCL 115.98 ml/min Normal 50-250 [facility] Comment on above: Performed By: #### L 500.4050 #### [facility] [address] [place], [address] GAP 24 High 5-15 [facility] Comment on above: Performed By: #### L 500.4050 #### [facility] [address] [place], [address] GFR/1.73 sq M.predicted among non-blacks MDRD (S/P/Bld) [Vol rate/Area] 103 mL/min/{1.73_m2} Normal >60 [facility] Comment on above: Result Comment: mL/m in/1.73m2 CKD-EPI Creatinine Equation (2020) Performed By: #### L 500.4050 #### [facility] [address] [place], [address] Globulin (S) [Mass/Vol] 3.5 g/dL Normal 2.2-4.2 [facility] Comment on above: Performed By: #### L 500.4050 #### [facility] [address] [place], [address] Glucose [Mass/Vol] 92 mg/dL Normal 70-99 [facility] Comment on above: Performed By: #### L 500.4050 #### [facility] [address] [place], [address] Potassium [Moles/Vol] 3.7 mmol/L Normal 3.3-5.1 [facility] Comment on above: Performed By: #### L 500.4050 #### [facility] [address] [place], [address] Sodium [Moles/Vol] 137 mmol/L Normal 133-145 [facility] Comment on above: Performed By: #### L 500.4050 #### [facility] [address] [place], [address] T PROT 7.9 g/dL Normal 5.9-8.4 [facility] Comment on above: Performed By: #### L 500.4050 #### [facility] [address] [place], [address] Urea nitrogen [Mass/Vol] 12 mg/dL Normal 4-19 [facility] Comment on above: Performed By: #### L 500.4050 #### [facility] [address] [place], [address] Emergency Department Summary on 02-13-2025 Emergency Department Summary [facility] Medical Records Department [address] [place] [address] Emergency Department Summary 02/13/25 MR#: [id number] Acct: [id number] Name: ANNAMARIE LARIOS Rep #: [id number] : 1990 34 From: Deep Holman DO PCP: Dr. Nikita Sorensen MD Status:ADM IN [facility] History of Present Illness Chief Complaint: Eye Problem Informant: patient and parent Onset/Context/Timing Location: Right Eye Onset: Today Context: Sudden Onset Timing: Continuous Worsened by: Nothing Relieved by: Nothing Associated Symptoms Associated Symptoms - Eyes: Redness; Negative for Burning, Crusting, Drainage, Eyelid swelling, Foreign body sensation, Matting or Pain History of injury: No Visual correction: Corrective contact lenses Narrative Narrative: Patient presents with right eye redness that began today. Patient states he woke up with it. Patient denies any trauma or injury. Patient denies any coughing or sneezing. Patient denies any changes in his vision. Patient denies any foreign body sensation. Patient does wear contact lenses. Patient states nothing makes it better and nothing makes it worse. Patient does not take any anticoagulants. [facility] Medical History (Updated 02/13/25 @ 18:[address] Deep Holman, DO) Depression Anxiety COVID-19 Home Medications ???Medication ???Instructions ???Recorded ???Last Taken ???Type fluoxetine 20 mg capsule 20 mg PO DAILY 02/13/25 Unknown Hi story olanzapine 20 mg tablet 20 mg PO QHS 02/13/25 Unknown Hist ory Allergy/AdvReac Type Severity Reaction Status Date / Time Cephalosporins Allergy Hives Verified 02/13/25 14:36 Penicillins Allergy Hives Verified 02/13/25 14:36 Surgical History (Updated 02/13/25 @ 15:[address] Deep Holman, DO) Hx of tympanostomy tubes History of adenectomy Hx of tonsillectomy Hx of splenectomy Social History Smoking Status: Former smoker substance use type: former substance user ROS ROS ED Constitutional Constitutional ED: Denies chills or fever(s) Eyes Eyes: Denies blurry vision or change in vision ENT ENT ED: Denies rhinorrhea or sore throat Cardiovascular Cardiovascular: Denies chest pain or palpitations Respiratory/Chest Respiratory/Chest: Denies cough or dyspnea Gastrointestinal Gastrointestinal: Denies nausea or vomiting Genitourinary Genitourinary ED: Denies dysuria or hematuria Musculoskeletal Musculoskeletal: Denies back pain or neck pain Integumentary Denies abscess or rash Neurologic Neurologic: Denies headache(s) or weakness Psychiatric Psychiatric: Reports depression Allergic/Immunologic Allergic/Immunologic ED: Denies mouth swelling or urticaria EXAM Physical Exam Const Vital Signs: 02/13/25 14:36 02/13/25 14:36 Temperature 97 F L Temperature Source Temporal Pulse Rate 113 H 118 H Respiratory Rate 18 16 Blood Pressure 163/113 H 169/110 H Blood Pressure Mean 129 129 Pulse Ox 98 98 Oxygen Delivery Method Room Air Room Air Positive well nourished and well developed General Appearance ED: well developed and NAD HEENT atraumatic Eyes Eyes Narrative: Pupils are equal, round, and reactive to light bilaterally. Extraocular muscles are intact. There is a subtle conjunctival hemorrhage on the medial aspect of the right sclera. There is also a small subconjunctival hemorrhage over the superior lateral aspect of the right sclera. Anterior chamber was clear. There is no hyphema. There is no subconjunctival hemorrhages on the left eye. Neck supple and no JVD Resp normal respiratory effort and clear to auscultation bilaterally Cardio regular rate and regular rhythm GI non-tender and non-distended Palpation: soft Neuro oriented x3, CN's II-XII intact bilaterally and moves all extremities Sensorium / Orientation: alert Motor Exam: strength 5/5 throughout Psych Mood Affect: depressed MDM MDM MDM Narrative Medical decision making narrative: Patient was advised that this is a subconjunctival hemorrhage. Patient and mother were advised that there is no emergency treatment necessary for this. Mother states patient has been getting more depressed recently over his grandmother's . Patient denies any suicidal or homicidal ideations. However, mother wants blood work to be drawn and to be assessed for possible psychiatric placement. Mother states patient has not been eating much over the last week. Mother is concerned the patient may be dehydrated from not eating or drinking much. Because of this, CBC will be obtained to assess for leukocytosis and anemia. Comprehensive metabolic profile will be obtained to assess for hepatic function, renal function, and electrolyte abnormality. Serum alcohol level will (more content not included)... Normal [facility] Eosinophil percentageOrdered By: Deep Holman on 02-13-2025 Eosinophils/100 WBC (Bld) 0.1 % 0-5 [facility] Erythrocyte distribution wid th ratioOrdered By: Deep Holman on 02-13-2025 Erythrocyte distribution width (RBC) [Ratio] 15.1 % High 11.6-14.6 [facility] Erythrocyte distribution wid th standard deviationOrdered By: Deep Holman on 02-13-2025 Erythrocyte distribution width (RBC) [Ratio] 46.5 fl High 35.1-43.9 [facility] Glomerular filtration rate ( GFR) estimation/1.73 sq m using serum, plasma, or whole bOrdered By: Deep Holman on 02-13-2025 GFR/1.73 sq M.predicted among non-blacks MDRD (S/P/Bld) [Vol rate/Area] 103 mL/min/{1.73_m2} >60 [facility] Comment on above: mL/min/1.73m2 CKD-EP I Creatinine Equation (2020) H AND P Exam - [facility] 02-13-2025 H&P Exam - Hospitalist [facility] Medical Records Department [address] [place] [address] H P Exam - Hospitalist 02/13/25 1848 MR#: [id number] Acct: [id number] Name: ANNAMARIE LARIOS Rep #: [id number] : 1990 34 From: Xochilt De Jesus MD PCP: Dr. Nikita Sorensen MD Status:ADM IN Location: [facility] TH200-2 HPI - General General Date of Admission: 02/13/25 Date of Service: 02/13/25 Chief Complaint: Right eye redness and alcohol use HPI Narrative ANNAMARIE LARIOS, is a 34 M with a history of depression, chewing tobacco use, remote history of alcohol use presented [facility] ED 02/13/2025 initially reporting some redness on his sclera when he woke up but when he got here family also reported they thought he was depressed and asked if labs could be obtained for further workup, patient was tachycardic with heart rate of 114, blood pressure 175/106, respiratory rate 22 and pulse ox 94% on room air, patient afebrile. Lab workup with white blood cell count 12.5, hemoglobin 16.2, reported anion gap of 24 however unclear how accurate this is as bicarb is within normal limits, BUN of 12 and creatinine 0.98. AST 227 ALT 888. UDS positive for cannabinoids and alcohol level at 3 PM found to be 321. This was discussed with patient who then reported significant alcohol drinking over the past month and was agreeable to come in for detox. Hospitalist contacted for admission. Patient evaluated with family at bedside, reportedly he lost his job a month ago and has been drinking pretty heavily since then roughly a 12 pack of white claw a day and has to drink from the time he wakes up to help with withdrawal symptoms. His grandmother recently which further escalated his drinking and also reports he has not been eating food or drinking water and last ate a meal on when his grandmother's was. Reports having tubes in his ears multiple times so sometimes his right ear pops but currently having no hearing difficulties, has the redness around the eye but no pain. Did remark that he has been wearing the same contacts for months and never takes them out even when he sleeps and has no other contacts and no glasses so he just does not take them out. [facility] Medical History (Updated 02/13/25 @ 18:[address] Deep Holman, DO) Anxiety COVID-19 Depression Home Medications ???Medication ???Instructions ???Recorded ???Last Taken ???Type fluoxetine 20 mg capsule 20 mg PO DAILY 02/13/25 Unknown Hi story olanzapine 20 mg tablet 20 mg PO QHS 02/13/25 Unknown Hist ory Allergy/AdvReac Type Severity Reaction Status Date / Time Cephalosporins Allergy Hives Verified 02/13/25 14:36 Penicillins Allergy Hives Verified 02/13/25 14:36 Surgical History (Updated 02/13/25 @ 15:[address] Deep Holman, DO) History of adenectomy Hx of splenectomy Hx of tonsillectomy Hx of tympanostomy tubes Social History Smoking Status: Former smoker substance use type: former substance user ROS ROS Narrative General: Denies fever/chills HENT: Denies headache, denies stuffy nose, denies sore throat EYES: Denies changes in vision, does have some redness of right eye Resp: Denies cough, denies shortness of breath Cardiac: Denies chest pain GI: Denies abdominal pain, denies changes in bowel, denies nausea/vomiting : Denies changes in urination Extremity: Denies swelling MSK: Denies weakness Neuro: Denies any numbness/tingling, feeling shaky Heme: Denies any bleeding or bruising Skin: Denies rashes Psychiatric: Anxious and tearful Vital Signs Vital Signs Vital Signs: 02/13/25 14:36 02/13/25 14:36 02/13/25 17:05 Temperature 97 F L Temperature Source Temporal Pulse Rate 113 H 118 H 114 H Respiratory Rate 18 16 22 H Blood Pressure 163/113 H 169/110 H 175/106 H Blood Pressure Mean 129 129 129 Pulse Ox 98 98 94 Oxygen Delivery Method Room Air Room Air Room Air 02/13/25 17:21 02/13/25 18:00 Temperature 99 F Temperature Source Pulse Rate 113 H 102 H Respiratory Rate 18 20 H Blood Pressure 171/95 H 165/74 H Blood Pressure Mean 120 104 Pulse Ox 96 100 Oxygen Delivery Method Room Air Weight Weight: 88.8 kg Body Mass Index (BMI) 28.9 Physical Exam Narrative General: Alert, oriented, appears anxious and tremulous HEENT: Atraumatic, normocephalic Eyes: Subconjunctival hemorrhage on parts of right eye without pain, pupils equal, denies pain, extraocular movements grossly intact Neck: Supple Respiratory: Clear to auscultation bilaterally, normal respiratory effort Cardiovascular: Low-grade sinus tachycardia GI: Soft, nontender, nondistended Extremities: No edema Musculoskeletal: Moving all extremities Neuro: No overt focal neurological deficits (more content not included)... Normal [facility] Hematocrit Auto (Bld) [Volum e fraction]Ordered By: Deep Holman on 02-13-2025 Hematocrit (Bld) [Volume fraction] 46.6 % 40-54 [facility] Hemoglobin measurementOrdere d By: Deep Holman on 02-13-2025 Hemoglobin (Bld) [Mass/Vol] 16.2 g/dL 13.0-16.5 [facility] Immature granulocytes/100 WB C Auto (Bld)Ordered By: Deep Holman on 02-13-2025 Immature granulocytes/100 WBC (Bld) 0.400 % 0.0-0.9 [facility] Comment on above: IG% - Immature Granu locytes (promyelocytes, myelocytes and metamyelocytes) > 1% indicates that a LEFT SHIFT is Present. Laboratory - Chemistry and C hemistry - challengeOrdered By: Deep Holman on 02-13-2025 AST [Catalytic activity/Vol] 227 U/L High <38 [facility] MCV (mean corpuscular volume ) determinationOrdered By: Deep Holman on 02-13-2025 MCV (RBC) [Entitic vol] 84.3 fL 80-94 [facility] Mean corpuscular hemoglobin (MCH) determinationOrdered By: Deep Holman on 02-13-2025 MCH (RBC) [Entitic mass] 29.3 pg 27.0-32.0 [facility] Mean corpuscular hemoglobin concentration (MCHC) determinationOrdered By: Deep Holman on 02-13-2025 MCHC (RBC) [Mass/Vol] 34.8 g/dL 32-36 [facility] Mean platelet volume determi nationOrdered By: Deep Holman on 02-13-2025 Platelet mean volume (Bld) [Entitic vol] 10.1 fL 6.2-12.0 [facility] Monocyte percentageOrdered B y: Deep Holman on 02-13-2025 Monocytes/100 WBC (Bld) 9.5 % 0-10 [facility] Neutrophil percentageOrdered By: Deep Holman on 02-13-2025 Neutrophils/100 WBC (Bld) 66.7 % 47-70 [facility] No Panel InformationOrdered By: Deep Holman on 02-13-2025 Urine Buprenorphine Qualitative Negative < 200 ng/mL [facility] Urine Oxycodone Screen Negative < 100 ng/mL [facility] Nucleated red blood cell per centageOrdered By: Deep Holman on 02-13-2025 Nucleated RBC/100 WBC (Bld) [Ratio] 0 % 0-5 [facility] Platelet countOrdered By: Michael Holman on 02-13-2025 Platelets (Bld) [#/Vol] 354 10*3/uL 150-450 [facility] Potassium measurement (mass/ volume)Ordered By: Deep Holman on 02-13-2025 Potassium (Unsp spec) [Mass/Vol] 3.7 mmol/L 3.3-5.1 [facility] Quantitative urine opiates m easurementOrdered By: Deep Holman on 02-13-2025 Opiates Ql (U) Negative < 300 ng/mL [facility] RBC Auto (Bld) [#/Vol]Ordere d By: Deep Holman on 02-13-2025 RBC (Bld) [#/Vol] 5.53 10*6/uL 4.6-6.2 [facility] Screening urine fentanyl warren surementOrdered By: Deep Holman on 02-13-2025 fentaNYL Screen Ql (U) Negative [facility] Serum creatinine measurement (mass/volume)Ordered By: Deep Holman on 02-13-2025 Creatinine [Mass/Vol] 0.98 mg/dL 0.70-1.20 [facility] Serum globulin measurementOr dered By: Depe Holman on 02-13-2025 Globulin (S) [Mass/Vol] 3.5 g/dL 2.2-4.2 [facility] Serum glucose measurement (m ass/volume)Ordered By: Deep Holman on 02-13-2025 Glucose [Mass/Vol] 92 mg/dL 70-99 [facility] Serum or plasma alanine murillo otransferase (ALT) measurementOrdered By: Deep Holman on 02-13-2025 ALT [Catalytic activity/Vol] 188 U/L High <47 [facility] Serum or plasma albumin long urement (mass/volume)Ordered By: Deep Holman on 02-13-2025 Albumin [Mass/Vol] 4.4 g/dL 3.5-5.0 [facility] Serum or plasma albumin/glob ulin mass ratioOrdered By: Deep Holman on 02-13-2025 Albumin/Globulin [Mass ratio] 1.3 {ratio} 0.9-2.4 [facility] Serum or plasma alkaline gunnar sphatase measurementOrdered By: Deep Holman on 02-13-2025 ALP [Catalytic activity/Vol] 91 U/L 40-129 [facility] Serum or plasma calcium long urement (mass/volume)Ordered By: Deep Holman on 02-13-2025 Calcium [Mass/Vol] 8.8 mg/dL 7.6-11.0 [facility] Serum or plasma ethanol long urement (mass/volume)Ordered By: Deep Holman on 02-13-2025 Ethanol [Mass/Vol] 321.0 mg/dL High <10.1 [facility] Comment on above: Critical Result(s) Heraclio GRADY at: 1626 by: DALY Results read back by same.This test is for medical purposes only. The legal definition of intoxication varies according to local law. Serum or plasma urea nitroge n measurement (mass/volume)Ordered By: Deep Holman on 02-13-2025 Urea nitrogen [Mass/Vol] 12 mg/dL 4-19 [facility] Sodium levelOrdered By: Deep Holman on 02-13-2025 Sodium [Moles/Vol] 137 mmol/L 133-145 [facility] Total proteinOrdered By: Rakel Holman on 02-13-2025 Protein [Mass/Vol] 7.9 g/dL 5.9-8.4 [facility] Urine Drug Screen (VISTA)on 02-13-2025 AMPHETAMINES Negative Normal <1000 ng/mL [facility] Comment on above: Performed By: #### L 501.9100, L505.5000, L100.0100 ####[facility] [address] [facility] [address] BARBITIURATES Negative Normal < 200 ng/mL [facility] Comment on above: Performed By: #### L 501.9100, L505.5000, L100.0100 ####[facility] [address] [facility] [address] BENZODIAZIPINE Negative Normal < 200 ng/mL [facility] Comment on above: Performed By: #### L 501.9100, L505.5000, L100.0100 ####[facility] [address] [place], [address] BUP Ur Drug Scr Negative Normal < 200 ng/mL [facility] Comment on above: Performed By: #### L 501.9100, L505.5000, L100.0100 ####[facility] [address] [place], [place], [phone] COCAINE Negative Normal < 300 ng/mL [facility] Comment on above: Performed By: #### L 501.9100, L505.5000, L100.0100 ####[facility] [address] [place] [address] [facility] Comment on above: Performed By: #### L 501.9100, L505.5000, L100.0100 ####[facility] [address] [place], [address] METHADONE Negative Normal < 300 ng/mL [facility] Comment on above: Performed By: #### L 501.9100, L505.5000, L100.0100 ####[facility] [address] [place], [address] OPIATES Negative Normal < 300 ng/mL [facility] Comment on above: Performed By: #### L 501.9100, L505.5000, L100.0100 ####[facility] [address] [place], [address] OXYCODONE Negative Normal < 100 ng/mL [facility] Comment on above: Performed By: #### L 501.9100, L505.5000, L100.0100 ####[facility] [address] [place], [address] PCP Negative Normal < 25 ng/mL [facility] Comment on above: Performed By: #### L 501.9100, L505.5000, L100.0100 ####[facility] [address] [place], [address] THC Positive Normal < 50 ng/mL [facility] Comment on above: Result Comment: If c onfirmation testing is needed, a separate order will be required to send out testing to the reference laboratory. Performed By: #### L 501.9100, L505.5000, L100.0100 ####[facility] [address] [place], [address] Urine benzodiazepine levelOr dered By: Deep Holman on 02-13-2025 Benzodiazepines Ql (U) Negative < 200 ng/mL [facility] Urine cocaine levelOrdered B y: Deep Holman on 02-13-2025 Cocaine Ql (U) Negative < 300 ng/mL [facility] Urine jaxup-0-kulmgdhgaewzpn abinol (THC) measurementOrdered By: Deep Holman on 02-13-2025 Cannabinoids Screen Ql (U) Positive < 50 ng/mL [facility] Comment on above: If confirmation test ing is needed, a separate order will be required to send out testing to the reference laboratory. Urine phencyclidine (PCP) de tectionOrdered By: Deep Holman on 02-13-2025 Phencyclidine Ql (U) Negative < 25 ng/mL [facility] White blood cell (WBC) count Ordered By: Deep Holman on 02-13-2025 WBC (Bld) [#/Vol] 12.5 10*3/uL High 4.4-11.0 [facility] CBC W Auto Differential pane l (Bld)on 08-04-2024 Basophils (Bld) [#/Vol] 0.2 10*3/uL 0.0 - 0.2 10*3/uL [facility] Basophils/100 WBC (Bld) 2.2 % High 0.0 - 2.0 % [facility] Eosinophils (Bld) [#/Vol] 0 10*3/uL 0.0 - 0.5 10*3/uL [facility] Eosinophils/100 WBC (Bld) 0.4 % 0.0 - 6.0 % [facility] Erythrocyte distribution width (RBC) [Ratio] 14.6 % 11.5 - 15.0 % [facility] Hematocrit (Bld) [Volume fraction] 51 % 40.0 - 52.0 % [facility] Hemoglobin (Bld) [Mass/Vol] 17.1 g/dL 13.0 - 18.0 g/dL [facility] Immature granulocytes (Bld) [#/Vol] 0 10*3/uL NINF - 0.1 10*3/uL [facility] Immature granulocytes/100 WBC (Bld) 0.2 % 0.0 - 2.0 % [facility] Interpretation and review of laboratory results Abnormal [facility] Lymphocytes (Bld) [#/Vol] 3 10*3/uL 1.0 - 4.3 10*3/uL [facility] Lymphocytes/100 WBC (Bld) 37.5 % 15.0 - 45.0 % [facility] MCH (RBC) [Entitic mass] 28.3 pg 26. 0 - 34.0 pg [facility] MCHC (RBC) [Mass/Vol] 33.5 % 30.5 - 36.0 % [facility] MCV (RBC) [Entitic vol] 84.4 fL 77.0 - 99.0 fL [facility] Monocytes (Bld) [#/Vol] 0.8 10*3/uL 0.0 - 0.9 10*3/uL [facility] Monocytes/100 WBC (Bld) 10.2 % 5.0 - 13.0 % [facility] Neutrophils (Bld) [#/Vol] 4 10*3/uL 1.8 - 7.5 10*3/uL [facility] Neutrophils/100 WBC (Bld) 49.5 % 38.0 - 82.0 % [facility] Nucleated RBC/100 WBC (Bld) [Ratio] 0 % [facility] Platelet mean volume (Bld) [Entitic vol] 10.3 fL 9.0 - 12.7 fL [facility] Platelets (Bld) [#/Vol] 399 10*3/uL 140 - 440 10*3/uL [facility] RBC (Bld) [#/Vol] 6.04 10*6/uL High 4.40 - 5.9 0 10*6/uL [facility] WBC (Bld) [#/Vol] 8.1 10*3/uL 3.6 - 10.7 10*3/uL [facility] CBC WITH AUTO DIFFERENTIALon 08-04-2024 Basophils (Bld) [#/Vol] 0.2 10*3/uL Normal 0.0-0.2 [facility] Comment on above: Performed By: #### L [id number] ####Aluminum Welder: YOHANA JARQUIN ([id number])[facility])[address] [place] [address] Basophils/100 WBC (Bld) 2.2 % High 0.0-2.0 [facility] Comment on above: Performed By: #### L [id number] ####Aluminum Welder: YOHANA JARQUIN ([id number])[facility])[address] [place] [address] Eosinophils (Bld) [#/Vol] 0.0 10*3/uL Normal 0.0-0.5 [facility] Comment on above: Performed By: #### L [id number] ####Aluminum Welder: YOHANA JARQUIN ([id number])[facility])[address] [place] [address] Eosinophils/100 WBC (Bld) 0.4 % Normal 0.0-6.0 [facility] Comment on above: Performed By: #### L [id number] ####Aluminum Welder: YOHANA JARQUIN ([id number])[address] Erythrocyte distribution width (RBC) [Ratio] 14.6 % Normal 11.5-15.0 [facility] Comment on above: Performed By: #### L [id number] ####Aluminum Welder: YOHANA JARQUIN ([id number])[address] Hematocrit (Bld) [Volume fraction] 51.0 % Normal 40.0-52.0 [facility] Comment on above: Performed By: #### L [id number] ####Aluminum Welder: YOHANA JARQUIN ([id number])[address] Hemoglobin (Bld) [Mass/Vol] 17.1 g/dL Normal 13.0-18.0 [facility] Comment on above: Performed By: #### L [id number] ####Aluminum Welder: YOHANA JARQUIN ([id number])[address] IMMATURE GRANS % 0.2 % Normal 0.0-2.0 [facility] Comment on above: Performed By: #### L [id number] ####Aluminum Welder: YOHANA JARQUIN ([id number])[address] IMMATURE GRANS ABSOLUTE 0.0 10*3/uL Normal <0.1 [facility] Comment on above: Performed By: #### L [id number] ####Aluminum Welder: YOHANA JARQUIN ([id number])[facility])[address] [place] [address] Lymphocytes (Bld) [#/Vol] 3.0 10*3/uL Normal 1.0-4.3 [facility] Comment on above: Performed By: #### L [id number] ####Aluminum Welder: YOHANA JARQUIN ([id number])[facility])[address] [place] [address] Lymphocytes/100 WBC (Bld) 37.5 % Normal 15.0-45.0 [facility] Comment on above: Performed By: #### L [id number] ####Aluminum Welder: YOHANA JARQUIN ([id number])[facility])[address] [place] [address] MCH (RBC) [Entitic mass] 28.3 pg Normal 26.0-34.0 [facility] Comment on above: Performed By: #### L [id number] ####Aluminum Welder: YOHANA JARQUIN ([id number])[facility])[address] [place] [address] MCHC 33.5 % Normal 30.5-36.0 [facility] Comment on above: Performed By: #### L [id number] ####Aluminum Welder: YOHANA JARQUIN ([id number])[facility])[address] [place] [address] MCV (RBC) [Entitic vol] 84.4 fL Normal 77.0-99.0 [facility] Comment on above: Performed By: #### L [id number] ####Aluminum Welder: YOHANA JARQUIN ([id number])[facility])[address] [place] [address] Monocytes (Bld) [#/Vol] 0.8 10*3/uL Normal 0.0-0.9 [facility] Comment on above: Performed By: #### L [id number] ####Aluminum Welder: YOHANA JARQUIN ([id number])[facility])[address] [place] [address] Monocytes/100 WBC (Bld) 10.2 % Normal 5.0-13.0 [facility] Comment on above: Performed By: #### L [id number] ####Aluminum Welder: YOHANA JARQUIN ([id number])[facility])[address] [place] [address] NEUTROPHILS ABSOLUTE 4.0 10*3/uL Normal 1.8-7.5 [facility] Comment on above: Performed By: #### L [id number] ####Aluminum Welder: YOHANA JARQUIN ([id number])[facility])[address] [place] [address] Neutrophils/100 WBC (Bld) 49.5 % Normal 38.0-82.0 [facility] Comment on above: Performed By: #### L [id number] ####Aluminum Welder: YOHANA JARQUIN ([phone])[facility])[address] [place] [address] NRBC 0.0 /100 WBCs Normal 0.0-2.0 [facility] Comment on above: Performed By: #### L [id number] ####Aluminum Welder: YOHANA JARQUIN ([phone])[facility])[address] [place] [address] Platelet mean volume (Bld) [Entitic vol] 10.3 fL Normal 9.0-12.7 [facility] Comment on above: Performed By: #### L [id number] ####Aluminum Welder: YOHANA JARQUIN ([id number])[facility])[address] [place] [address] Platelets (Bld) [#/Vol] 399 10*3/uL Normal 140-440 [facility] Comment on above: Performed By: #### L [id number] ####Aluminum Welder: YOHANA JARQUIN ([id number])[facility])[address] [place] [address] RBC (Bld) [#/Vol] 6.04 10*6/uL High 4.40-5.90 [facility] Comment on above: Performed By: #### L [id number] ####Aluminum Welder: YOHANA JARQUIN ([phone])[facility])[address] [place] [address] WBC (Bld) [#/Vol] 8.1 10*3/uL Normal 3.6-10.7 [facility] Comment on above: Performed By: #### L [id number] ####Aluminum Welder: YOHANA JARQUIN ([phone])[facility])[address] [place] [address] CKon 08-04-2024 CK [Catalytic activity/Vol] 355 U/L High 30-185 [facility] Comment on above: Performed By: #### L AB46, LAB62, LAB17 ####Aluminum Welder: YOHANA JARQUIN ([phone])[facility])[address] [place] [address] COMPLETE URINALYSISon 2024 BACTERIA (#/HPF) IN URINE Negative Normal Negative [facility] Comment on above: Performed By: #### L [id number] ####Aluminum Welder: YOHANA JARQUIN ([phone])[facility])[address] [place] [address] BILIRUBIN, TOTAL PRESENCE IN URINE Negative Normal Negative [facility] Comment on above: Performed By: #### L [id number] ####Aluminum Welder: YOHANA JARQUIN ([phone])[facility])[address] [place] [address] Clarity (U) Clear Normal Clear [facility] Comment on above: Performed By: #### L [id number] ####Aluminum Welder: YOHANA JARQUIN ([phone])[facility])[address] [place] [address] Color (U) Yellow Normal Lt. Yellow [facility] Comment on above: Performed By: #### L [id number] ####Aluminum Welder: YOHANA JARQUIN ([phone])[facility])[address] [place] [address] GLUCOSE (MG/DL) IN URINE Normal Normal Nor mal (<70) [facility] Comment on above: Performed By: #### L [id number] ####Aluminum Welder: YOHANA JARQUIN ([id number])[facility])[address] [place] [address] HEMOGLOBIN PRESENCE IN URINE 0.1 mg/dL Abnormal Negative [facility] Comment on above: Performed By: #### L [id number] ####Aluminum Welder: YOHANA JARQUIN ([id number])[facility])[address] [place] [address] HYALINE CASTS (#/LPF) IN URINE SEDIMENT BY MICROSCOPY Negative Normal Negative [facility] Comment on above: Performed By: #### L [id number] ####Aluminum Welder: YOHANA JARQUIN ([id number])[facility])[address] [place] [address] Ketones Ql (U) Negative Normal Negative [facility] Comment on above: Performed By: #### L [id number] ####Aluminum Welder: YOHANA JARQUIN ([id number])[facility])[address] [place] [address] LEUKOCYTE ESTERASE PRESENCE IN URINE BY TEST STRIP Negative Normal Negative [facility] Comment on above: Performed By: #### L [id number] ####Aluminum Welder: YOHANA JARQUIN ([id number])[facility])[address] [place] [address] [place] MUCUS (#/LPF) IN URINE SEDIMENT Few Normal Negative [facility] Comment on above: Performed By: #### L [id number] ####Aluminum Welder: YOHANA JARQUIN ([id number])[facility])[address] [place] [address] NITRITE PRESENCE IN URINE Negative Normal Negative [facility] Comment on above: Performed By: #### L [id number] ####Aluminum Welder: YOHANA JARQUIN ([id number])[facility])[address] [place] [address] pH (U) 7.0 [pH] Normal 5.0-8.0 [facility] Comment on above: Performed By: #### L [id number] ####Aluminum Welder: YOHANA JARQUIN ([id number])[facility])[address] [place] [address] Protein (U) [Mass/Vol] 600 mg/dL Abnormal Negative [facility] Comment on above: Performed By: #### L [id number] ####Aluminum Welder: YOHANA JARQUIN ([id number])[facility])[address] [place] [address] [place] RBC (#/HPF) IN URINE SEDIMENT 0-2 Normal 0-2 [facility] Comment on above: Performed By: #### L [id number] ####Aluminum Welder: YOHANA JARQUIN ([phone])[facility])[address] [place] [address] Specific gravity (U) [Rel density] 1.025 Normal 1.005-1.030 [facility] Comment on above: Performed By: #### L [id number] ####Aluminum Welder: YOHANA JARQUIN ([phone])[facility])[address] [place] [address] SQUAMOUS EPITHELIAL CELLS (#/HPF) IN URINE SEDIMENT 0-2 Normal 3-5 [facility] Comment on above: Performed By: #### L [id number] ####Aluminum Welder: YOHANA JARQUIN ([phone])[facility])[address] [place] [address] [place] UROBILINOGEN (MG/DL) IN URINE Normal Normal Normal (0-1) [facility] Comment on above: Performed By: #### L [id number] ####Aluminum Welder: YOHANA JARQUIN ([phone])[facility])[address] [place] [address] [place] WBC (LEUKOCYTE) (#/HPF) IN URINE SEDIMENT 0-2 Normal 0-5 [facility] Comment on above: Performed By: #### L [id number] ####Aluminum Welder: YOHANA JARQUIN ([phone])[facility])[address] [place] [address] COMPREHENSIVE METABOLIC PANE Akhil 08-04-2024 Albumin [Mass/Vol] 4.2 g/dL Normal 3.5-5.0 [facility] Comment on above: Performed By: #### Jaspreet AB46, LAB62, LAB17 ####Aluminum Welder: YOHANA JARQUIN ([phone])[facility])[address] [place] [address] ALP [Catalytic activity/Vol] 79 U/L Normal 40-150 [facility] Comment on above: Performed By: #### Jaspreet AB46, LAB62, LAB17 ####Aluminum Welder: YOHANA JARQUIN ([phone])[facility])[address] [place] [address] ALT [Catalytic activity/Vol] 284 U/L High <40 [facility] Comment on above: Performed By: #### Jaspreet LABOY, LAB62, LAB17 ####Aluminum Welder: YOHANA JARQUIN ([id number])[facility])[address] [place] [address] Anion gap [Moles/Vol] 14 mmol/L High 3-13 [facility] Comment on above: Performed By: #### Jaspreet MERAZ46, LAB62, LAB17 ####Aluminum Welder: YOHANA JARQUIN ([id number])[facility])[address] [place] [address] [place] AST [Catalytic activity/Vol] 237 U/L High <34 [facility] Comment on above: Performed By: #### Jaspreet AB46, LAB62, LAB17 ####Aluminum Welder: YOHANA JARQUIN ([id number])[facility])[address] [place] [address] Bilirubin [Mass/Vol] 0.4 mg/dL Normal <1.2 [facility] Comment on above: Performed By: #### Jaspreet AB46, LAB62, LAB17 ####Aluminum Welder: YOHANA JARQUIN ([id number])[facility])[address] [place] [address] [place] Calcium [Mass/Vol] 8.6 mg/dL Normal 8.4-10.2 [facility] Comment on above: Performed By: #### Jaspreet AB46, LAB62, LAB17 ####Aluminum Welder: YOHANA JARQUIN ([id number])[facility])[address] [place] [address] [place] Chloride [Moles/Vol] 100 mmol/L Normal 98-107 [facility] Comment on above: Performed By: #### Jaspreet AB46, LAB62, LAB17 ####Aluminum Welder: YOHANA JARQUIN ([id number])[facility])[address] [place] [address] CO2 [Moles/Vol] 26 mmol/L Normal 22-29 [facility] Comment on above: Performed By: #### Jaspreet MERAZ46, LAB62, LAB17 ####Aluminum Welder: YOHANA JARQUIN ([id number])[facility])[address] [place] [address] Creatinine [Mass/Vol] 0.97 mg/dL Normal 0.72-1.25 [facility] Comment on above: Performed By: #### Japsreet LABOY, LAB62, LAB17 ####Aluminum Welder: YOHANA JARQUIN ([id number])[facility])[address] [place] [address] [place] GLOMERULAR FILTRATION RATE ML/MIN/1.73 SQ M.PREDICTED >90.0 Normal >60.0 [facility] Comment on above: Result Comment: Calc ulation based on the Chronic Kidney Disease Epidemiology Collaboration (CKD-EPI) equation refit without adjustment for race Performed By: #### Jaspreet AB46, LAB62, LAB17 ####Aluminum Welder: YOHANA JARQUIN ([id number])[facility])[address] [place] [address] [place] Glucose [Mass/Vol] 106 mg/dL High 74-100 [facility] Comment on above: Performed By: #### Jaspreet AB46, LAB62, LAB17 ####Aluminum Welder: YOHANA [id number])[facility] ([facility])[address] [place] [address] Potassium [Moles/Vol] 4.0 mmol/L Normal 3.5-5.1 [facility] Comment on above: Result Comment: [facility] potassium values may be up to 0.5 mmol/L lower than serum values. Performed By: #### L AB46, LAB62, LAB17 ####Aluminum Welder: YOHANA JARQUIN ([id number])[facility])[address] [place] [address] Protein [Mass/Vol] 8.2 g/dL Normal 6.4-8.3 [facility] Comment on above: Performed By: #### Jaspreet AB46, LAB62, LAB17 ####Aluminum Welder: YOHANA JARQUIN ([id number])[facility])[address] [place] [address] Sodium [Moles/Vol] 140 mmol/L Normal 136-145 [facility] Comment on above: Performed By: #### Jaspreet AB46, LAB62, LAB17 ####Aluminum Welder: YOHANA JARQUIN ([id number])[facility] [place] [address] Urea nitrogen [Mass/Vol] 12 mg/dL Normal 8-21 [facility] Comment on above: Performed By: #### Jaspreet AB46, LAB62, LAB17 ####Aluminum Welder: YOHANA JARQUIN ([phone])[facility])[address] [place] [address] Comprehensive metabolic 1998 panelon 08-04-2024 Albumin [Mass/Vol] 4.2 g/dL 3.5 - 5.0 g/dL [facility] ALP [Catalytic activity/Vol] 79 U/L 40 - 150 U/L [facility] ALT [Catalytic activity/Vol] 284 U/L High NINF - 40 U/L [facility] Anion gap [Moles/Vol] 14 mmol/L High 3 - 13 mmol/L [facility] AST [Catalytic activity/Vol] 237 U/L High NINF - 34 U/L [facility] Bilirubin [Mass/Vol] 0.4 mg/dL NINF - 1.2 mg/dL [facility] Calcium [Mass/Vol] 8.6 mg/dL 8.4 - 10. 2 mg/dL [facility] Chloride [Moles/Vol] 100 mmol/L 98 - 10 7 mmol/L [facility] CO2 [Moles/Vol] 26 mmol/L 22 - 29 mmol/L [facility] Creatinine [Mass/Vol] 0.97 mg/dL 0.72 - 1.25 mg/dL [facility] GFR/1.73 sq M.predicted (S/P/Bld) [Vol rate/Area] - PINF [facility] Comment on above: Calculation based on the Chronic Kidney Disease Epidemiology Collaboration (CKD-EPI) equation refit without adjustment for race Glucose [Mass/Vol] 106 mg/dL High 74 - 100 mg/dL [facility] Potassium [Moles/Vol] 4 mmol/L 3.5 - 5.1 mmol/L [facility] Comment on above: Plasma potassium rosy ues may be up to 0.5 mmol/L lower than serum values. Protein [Mass/Vol] 8.2 g/dL 6.4 - 8.3 g/dL [facility] Sodium [Moles/Vol] 140 mmol/L 136 - 145 mmol/L [facility] Urea nitrogen [Mass/Vol] 12 mg/dL 8 - 21 mg/dL [facility] DRUGS OF ABUSEon 08-04-2024 AMPHETAMINE SCREEN Negative Normal [facility] Comment on above: Performed By: #### L [id number] ####Aluminum Welder: YOHANA JARQUIN ([id number])[facility])[address] [place] [address] BARBITURATES SCREEN Negative Normal [facility] Comment on above: Performed By: #### L [id number] ####Aluminum Welder: YOHANA JARQUIN ([phone])[facility])[address] [place] [address] BENZODIAZEPINE SCREEN Negative Normal [facility] Comment on above: Performed By: #### L [id number] ####Aluminum Welder: YOHANA JARQUIN ([id number])[facility])[address] [place] [address] COCAINE METAB. SCREEN Negative Normal [facility] Comment on above: Performed By: #### L [id number] ####Aluminum Welder: YOHANA JARQUIN ([phone])[facility])[address] [place] [address] FENTANYL SCREEN, UR QUAL Negative Normal [facility] Comment on above: Result Comment: MELISSA R COMMENTS: The expected value for all [...] under separate order. Performed By: #### L [id number] ####Aluminum Welder: YOHANA JARQUIN ([id number])[facility])[address] [place] [address] METHADONE SCREEN Negative Normal [facility] Comment on above: Performed By: #### L [id number] ####Aluminum Welder: YOHANA JARQUIN ([id number])[address] OPIATES SCREEN Negative Normal [facility] Comment on above: Performed By: #### L [id number] ####Aluminum Welder: YOHANA JARQUIN ([phone])[facility])[address] [place] [address] OXYCODONE SCREEN Negative Normal [facility] Comment on above: Performed By: #### L [id number] ####Aluminum Welder: YOHANA JARQUIN ([id number])[facility])[address] [place] [address] PHENCYCLIDINE SCREEN Negative Normal [facility] Comment on above: Performed By: #### L [id number] ####Aluminum Welder: YOHANA JARQUIN ([phone])[facility] ([facility])[address] [place] [address] ECG 12-LEADon 08-04-2024 ECG 12-LEAD IMPRESSION: Sinus rhythm Short MN interval no stemi artifact Electronically Signed On 08-04-2024 01:38:44 EST by Madelyn Crain [facility] ED Nursing Noteon 08-04-2024 ED Nursing Note Complete report provided. To ed of [facility]. Normal [facility] ED Nursing Note A/ox3. Independent t o stretcher. Discharged to [facility]. Belongings set with ems transport. Normal [facility] ED Nursing Note Luzma Tech at beds tk obtaining vitals. [facility] ED Nursing Note CHRISTO Fox giving karena ent warm blanket for comfort. [facility] ED Nursing Note EKG at patient bedside. [facility] ED Nursing Note Dr. Tellez at patient bedside. [facility] ED Nursing Note Pt changed into 2 go wns and wanded by officer. Pt has 1 belonging bag. with pt in [address]. [facility] ED Provider Noteon ED Provider Note [...] entirety of this encounter. In brief, Neal Larois is a 34 y.o. that presents to the emergency department for depression. Patient sent from [facility] for medical clearance. Patient presented there [...] was given Ativan and hydroxyzine reportedly at [facility]. He lives at home [...] for clarification.) Madelyn Crain MD Acute Care [facility] Madelyn Crain MD 08/04/[address] [facility] ED Provider Note EMERGENCY DEPARTMENT ENCOUNTER [...] COVID 04/2021 Eczema IBS (irritable bowel syndrome) [place] exposure MRSA (methicillin resistant staph aureus) culture positive Substance abuse ([facility]) ([facility]) SURGICAL HISTORY Past Surgical History: Procedure Laterality [...] Cayla Kali Alcohol abuse Paternal Grandfather Madelyn Larios Diabetes [...] grade. . Her biological mom lives in [place]. No significant other right now. Has 2 [...] Normal ran (more content not included)... Normal [facility] ETHANOLon 08-04-2024 ETHANOL IN SER/PLAS 274 mg/dL High <10 [facility] Comment on above: Result Comment: MELISSA Centeno COMMENTS: AUDIOVISUAL PRODUCTION SPECIALIST depression is seen >100 mg/dL. NOTE: This result is for medical treatment only. Analysis performed using non-forensic procedures. Performed By: #### L AB46, LAB62, LAB17 ####Aluminum Welder: YOHANA JARQUIN ([phone])[facility] ([address] Ethanol (Bld) [Mass/Vol]on 0 08-04-2024 Ethanol [Mass/Vol] 274 mg/dL High NINF - 10 mg/dL [facility] AUDIOVISUAL PRODUCTION SPECIALIST depression is se en >100 mg/dL. NOTE: This result is for medical treatment only. Analysis performed using non-forensic procedures. [facility] Laboratory - Chemistry and C hemistry - challengeon 08-04-2024 CK [Catalytic activity/Vol] 355 U/L High 30 - 185 U/L [facility] - Drug toxicology on 08-04-2024 Amphetamines Screen method >1000 ng/mL Ql (U) Negative [facility] Barbiturates Screen method >200 ng/mL Ql (U) Negative [facility] Benzodiazepines Ql (U) Negative [facility] Methadone Screen Ql (U) Negative [facility] Opiates Screen Ql (U) Negative [facility] oxyCODONE Ql (U) Negative [facility] Phencyclidine Ql (U) Negative [facility] Laboratory - Microbiology an d Antimicrobial susceptibilityOrdered By: Pilar [place] on 08-04-2024 SARS-CoV-2 (COVID-19) Ag IA.rapid Ql (Resp) Negative Negative [facility] Comment on above: A negative result do es not rule out the possibility of SARS-CoV-2 infection. NAAT-based methods should be considered for symptomatic patients presenting greater than seven days after onset of symptoms. Method: Lateral flow immunoassay. Fact sheets for healthcare providers and patients can be found at the following sites: https://www.fda.gov/media/954492/download https://www.fda.gov/media/193688/download No Panel Informationon 08-04 Interpretation and review of laboratory results Abnormal [facility] COCAINE METAB. SCREEN Negative [facility] FENTANYL SCREEN, UR QUAL Negative [facility] The expected value f or all of [...] is needed, request confirmation under separate order. [facility] P [place] 58 degrees [facility] MN Interval 62 ms [facility] QRS [place] 45 degrees [facility] QRSD Interval 89 ms [facility] QT Interval 381 ms [facility] QTC Interval 403 ms [facility] T Wave [place] 31 degrees [facility] Sinus rhythm Short MN interval no stemi artifact Electronically Signed On 08-04-2024 01:38:44 EST by Madelyn Crain CV Madelyn Ann MD - 08/04/2024 IMPRESSION: Sinus rhythm Short MN interval no stemi artifact Electronically Signed On 08-04-2024 01:38:44 EST by Madelyn Crain [facility] SARS-COV-2 ANTIGENon 025 SARS-COV-2 ANTIGEN SARS-COV-2 ANTIGEN -BINAX Reference Negative Negative A negative result does not rule out the possibility of SARS-CoV-2 infection. NAAT-based methods should be considered for symptomatic patients presenting greater than seven days after onset of symptoms. Method: Lateral flow immunoassay. Fact sheets for healthcare providers and patients can be found at the following sites: https://www.fda.gov/med ia/032015/download https://www.fda.gov/med ia/851363/download Normal [facility] Comment on above: Performed By: #### L [id number] ####Aluminum Welder: YOHANA JARQUIN ([id number])[address] SARS-CoV-2 (COVID-19) Ag IA. rapid Ql (Resp)Ordered By: Pilar Burkett on 08-04-2024 Interpretation and review of laboratory results Normal [facility] Urinalysis complete panel (U )Ordered By: Nicolás Orellana on 08-04-2024 Bacteria LM.HPF (Urine sed) [#/Area] Negative Negative /HPF [facility] Bilirubin Ql (U) Negative Negative mg/dL [facility] Clarity (U) Clear Clear [facility] Color (U) Yellow Lt. Yellow [facility] Epithelial cells.squamous LM.HPF (Urine sed) [#/Area] 0-2 [facility] Glucose Ql (U) Normal Normal (<70) mg/dL [facility] Hemoglobin Ql (U) 0.1 mg/dL Abnormal Negative [facility] Hyaline casts Auto (Urine sed) [#/Area] Negative Negative /LPF [facility] Interpretation and review of laboratory results Abnormal [facility] Ketones (U) [Mass/Vol] Negative Negat danielle mg/dL [facility] Leukocyte esterase Test strip Ql (U) Negative Negative [place]/uL [facility] Mucus LM.HPF (Urine sed) [#/Area] Few Negative /LPF [facility] Nitrite Ql (U) Negative Negative [facility] pH (U) 7.0 [pH] 5.0 - 8.0 pH [facility] Protein (U) [Mass/Vol] 600 mg/dL Abnormal Negative [facility] RBC LM.HPF (Urine sed) [#/Area] 0-2 [facility] Specific gravity (U) [Rel density] 1.025 1.005 - 1.030 [facility] Urobilinogen (U) [Mass/Vol] Normal Normal (0-1) mg/dL [facility] WBC LM.HPF (Urine sed) [#/Area] 0-2 [facility] Vital signson 08-04-2024 Heart rate 67 /min bpm [facility] 36on 01-16-2024 36 Rx sent. Follow up a s scheduled. [facility] 36 Prescription Request : Last medication check: 10/25/22 Last physical exam: 05/01/23 Next scheduled appointment: 05/03/24 Last date of refill on this medication 07/25/23 [facility] CNOVon 08-13-2023 CN Office Visit ([facility] ) ANNAMARIE LARIOS ([id number]) 1990 M Date Time Provider Department 08/13/23 7:00 PM NATY NAGY [facility] During your visit today, we recorded the following information about you: Temperature Pulse Respiration Blood pressure 101.5 degrees 122/minute 18/minute 142/86 Weight 89.8 kg Naty Nagy APRN.AUTOMATION QTP TESTER 08/14/2023 9:40 AM Signed This note was [...] (attention deficit hyperactivity disorder) Bipolar 1 disorder ([facility]) Eczema Hx MRSA infection IBS (irritable bowel syndrome) Substance abuse ([facility]) No past surgical history on file. ALLERGIES [...] tenderness or frontal sinus tenderness. Mouth/Throat: Lips: Villarreal. No lesions. Mouth: Mucous membranes are moist. No oral lesions. Tongue: No lesions. Palate: No lesions. Pharynx: Oropharynx is clear. Uvula midline. Posterior oropharyngeal erythema present. No pharyngeal swelling, oropharyngeal exudate or uvula swelling. Tonsils: No tonsillar exudate or tonsillar abscesses. 2+ on the right. 2+ on the left. Eyes: General: Lids are normal. No aller (more content not included)... Normal [facility] STREP A MOLECULAR (POC)on Procedural Control Valid [facility] Strep A (POCT) Positive Abnormal Negative [facility] Nilson 05-20-2023 ALT [Catalytic activity/Vol] 23 U/L 9 - 46 U/L [facility] Brian 05-20-2023 AST [Catalytic activity/Vol] 22 U/L 10 - 40 U/L [facility] Lipid 1996 panelon 3 Cholesterol [Mass/Vol] 204 mg/dL High NIN - 200 mg/dL [facility] Cholesterol in HDL [Mass/Vol] 45 mg/dL > OR = 40 [facility] Cholesterol in LDL [Mass/Vol] 131 mg/dL High mg/dL (calc) [facility] Comment on above: Reference range: <10 0 Desirable range <100 mg/dL for primary prevention; <70 mg/dL for patients with CHD or diabetic patients with > or = 2 CHD risk factors. LDL-C is now calculated using the Yasmine calculation, which is a validated novel method providing better accuracy than the Friedewald equation in the estimation of LDL-C. Juvenal DAVIS et al. WINSTON. 2013;310(19): 0860-9742 (http://education.ArmorText/faq/SPT919) Cholesterol non HDL [Mass/Vol] 159 mg/dL High [facility] Comment on above: For patients with di abetes plus 1 major ASCVD risk factor, treating to a non-HDL-C goal of <100 mg/dL (LDL-C of <70 mg/dL) is considered a therapeutic option. Cholesterol.total/Choles terol in HDL [Mass ratio] 4.5 {ratio} [facility] Interpretation and review of laboratory results Abnormal [facility] Triglyceride [Mass/Vol] 167 mg/dL High [facility] - 150 mg/dL [facility] No Panel Informationon 05-20 [facility] CNOVon 10-21-2022 CNOV Office Visit (UCWSTR ) LUIS ENRIQUEANNAMARIE Heraclio ([id number]) 1990 M Date Time Provider Department 10/21/22 8:30 AM [facility] During your visit today, we recorded the following information about you: Temperature Pulse Respiration Blood pressure 98.4 degrees 100/minute 21/minute 132/80 Weight 84.6 kg Didier KEYONA Kilgore.AUTOMATION QTP TESTER 10/21/2022 9:00 AM Signed Subjective HPI Nontoxic-appearing [...] infection IBS (irritable bowel syndrome) Substance abuse ([facility]) No past surgical history on file. ALLERGIES [...] swelling or pain on movement. Mouth/Throat: Lips: Villarreal. Mouth: Mucous membranes are moist. Pharynx: Oropharynx [...] of care. This note was generated using [employer] software. It may contain errors in wording, punctuation, or spelling. Didier Kilgore APRN.AUTOMATION QTP TESTER Allergies As of Date: 10/21/2022 Noted Allergy Reaction CEPHLASPORINS (CEPHALOSPORINS) (more content not included)... Normal [facility] STREP A MOLECULAR (POC)on Procedural Control Valid [facility] Strep A (POCT) Negative Negative [facility] CNOVon 09-21-2022 CNOV Office Visit (UCWSTR ) ANNAMARIE LARIOS ([id number]) 1990 M Date Time Provider Department 09/21/22 10:00 AM IAIN LOBO [facility] During your visit today, we recorded the following information about you: Temperature Pulse Respiration Blood pressure 99.2 degrees 72/minute 16/minute 128/82 Weight 84 kg Iain Lobo PA-C 09/21/2022 10:31 AM Signed This note was created using [employer]. Subjective Annamarie Larios is a 32 year [...] (attention deficit hyperactivity disorder) Bipolar 1 disorder ([facility]) Eczema Hx MRSA infection IBS (irritable bowel syndrome) Substance abuse ([facility]) Current Outpatient Medications Medication Sig Dispense Refill [...] pcn Date Reviewed: 05/15/2022 Reviewed by: Shi Lopez, MA - Fully Assessed Reason for Visit: Sore Throat [200] Cmt: ST, [place], fatigue and cough x 5 days Primary Visit Diagnosis:Viral URI [J06.9] Order(s):STREP A MOLECULAR (POC) [[id number]] Order #: [id number]. #:[id number] Prescriptions as of 09/21/2022 - famotidine (PEPCID) 40 mg tablet Take 40 mg by mouth. - EPINEPHrine (EPIPEN 2-KAMILA) 0.3 mg/0.3 mL auto-injector Inject 0.3 mL intramuscularly as needed. Problem List As Of Date: 09/21/2022 (None) Encounter Status:Closed by IAIN LOBO on 09/21/22 Normal [facility] STREP A MOLECULAR (POC)on Procedural Control Valid [facility] Strep A (POCT) Negative Negative [facility] STREP A MOLECULAR (POC)on Procedural Control Valid [facility] Strep A (POCT) Negative Negative [facility] CR Chest PA/LATon 06-07-2021 CR Chest PA/LAT Patient Name: ANNAMARIE CORLEY Diagnostic Radiology ACCESSION EXAM DATE/TIME PROCEDURE ORDERING PROVIDER [id number] 06/07/2021 13:35 EST CR Chest PA and LAT [id number] -CHETNA COBURN CPT code 86819 Reason For Exam (CR Chest PA and [...] Transcribed Date and Time: 06/07/2021 2:35 Normal [facility] XR CHEST (2 VW)on 06-07-2021 Patient Name: ANNAMARIE CORLEY Diagnostic Radiology ACCESSION EXAM DATE/TIME PROCEDURE ORDERING PROVIDER [id number] 06/07/2021 13:35 EST CR Chest PA & LAT [id number] -COBURNRAIAH CPT code 23415 Reason For Exam (CR Chest PA & [...] Transcribed Date and Time: 06/07/2021 2:35 [facility] Addy Walker MD - 06/07/2021 Patient Name: ANNAMARIE LARIOS Diagnostic Radiology ACCESSION EXAM DATE/TIME PROCEDURE ORDERING PROVIDER [id number] 06/07/2021 13:35 EST CR Chest PA & LAT [id number] [facility] CHETNA CPT code 64547 Reason For Exam (CR Chest PA & [...] HARLAN Transcribed Date and Time: 06/07/2021 2:35 [facility] Work Phone: Radiology Study observation (narrative) [facility] Work Phone: XR CHEST (2 VW)Ordered By: Barry Walker on 06-07-2021 [facility] Work Phone: Daily Progress Note-Gastroen terologyon 12-23-2018 Daily Progress Note-Gastroenterology Service: Gastroenterology Subjective Data: ANNAMARIE LARIOS is a 28 year old Male who is Hospital Day # 2. No acute issues. Noted patient was given mashed potato last night. Objective Data: Objective Information: T PRBPSpO2 Value36.17887524/36183% Date/Time12/23 7: 7: 7: 7: 7:31 Range(36.2C - 37.2C ) (51 - 92 ) (16 - 17 ) (105 - 138 )/ (59 - 79 ) (96% - 100% ) Highest temp of 37.2 C was recorded at 12/22 10:13 Pain reported at 12/23 6:45: 0 = None T PRBPSpO2 Value36.49169126/52606% Date/Time12/23 7: 7: 7: 7: 7:31 Range(36.2C [...] Patient seen and discussed with Dr. Slater Signature/Cosignature/A ttestation: Note Completion: Attending AttestationI saw and evaluated [...] the note. I personally evaluated the patient [id number] Electronic Signatures: Ondina Slater) (Signed 05-Jan-2019 09:19) Authored: Signature/Cosignature/A ttestation Co-Signer: Assessment and Plan, Signature/Cosignature/A ttestation Jody Ochoa (Fellow)) (Signed 23-Dec-2018 14:37) Authored: Service, Subjective Data, Objective Data, Assessment and Plan, Signature/Cosignature/A ttestation Last Updated: 05-Jan-2019 09:19 by Ondina Slater) Normal [facility] Cytologyon 12-23-2018 [facility] Cytology Patient Name ANNAMARIE LARIOS Date of Procedure: 12/23/2018 Date Reported: 12/24/2018 Date Received: 12/23/2018 Date of / Sex 1990 (Age: 28) / M Race: WHITE Submitting Physician: LEIGH WHEELER MD Other External # FINAL CYTOLOGICAL INTERPRETATION A. ESOPHAGEAL BRUSH: -- NO MALIGNANT CELLS IDENTIFIED. -- FUNGAL ORGANISMS PRESENT MORPHOLOGICALLY CONSISTENT WITH DOMINGA SPECIES. -- SEE SURGICAL SPECIMEN [id number]. The gross and/or microscopic findings were reviewed in conjunction with pathology resident, Eunice Page M.D. Electronically Signed Out By JENNIFER WAGNER III D.O. By the signature on this report, the individual or group listed as making the Final Interpretation/Diagnosi s certifies that they have reviewed this case. 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 Date of Procedure: 12/23/2018 Date Received: 12/23/2018 Date Reported 12/25/2018 Submitting Physician: LEIGH WHEELER MD Location: Copy To/Referring/Attending: NATY NAGY, AUTOMATION QTP TESTER Other External # MD Ondina FOLEY MD [...] or group listed as making the Final Interpretation/Diagnosi s certifies that they have reviewed this case. [...] toto in one cassette. DPG dpg/12/23/2018 Normal [facility] Comment on above: Performed By: #### U HCS #### [facility] Surgical Pathology Department [address] [facility] [address] BASIC METABOLIC PANELon 11-29 Anion gap [Moles/Vol] 16 mmol/L Normal 10 - 20 [facility] Comment on above: Performed By: #### B MP #### [facility] [address] [place] [address] Calcium [Mass/Vol] 10.2 mg/dL Normal 8.6 - 10.6 [facility] Comment on above: Performed By: #### B MP #### [facility] [address] [place] [address] Chloride [Moles/Vol] 102 mmol/L Normal 98 - 107 [facility] Comment on above: Performed By: #### B MP #### [facility] [address] [place] [address] Creatinine [Mass/Vol] 1.02 mg/dL Normal 0.50 - 1.30 [facility] Comment on above: Performed By: #### B MP #### [facility] [address] [place] [address] GFR- AM. >60 Normal >60 [facility] Comment on above: Result Comment: CALC ULATIONS OF ESTIMATED GFR ARE PERFORMED USING THE MDRD STUDY EQUATION FOR THE IDMS-TRACEABLE CREATININE METHODS. CLIN CHEM 2007;53:766-72 Performed By: #### B MP #### [facility] [address] [place] [address] GFR-NON AM. >60 Normal >60 [facility] Comment on above: Performed By: #### B MP #### [facility] [address] [place] [address] Glucose [Mass/Vol] 94 mg/dL Normal 74 - 99 [facility] Comment on above: Performed By: #### B MP #### [facility] [address] [place] [address] HCO3 (Bld) [Moles/Vol] 27 mmol/L Normal 21 - 32 [facility] Comment on above: Performed By: #### B MP #### [facility] [address] [place] [address] Potassium [Moles/Vol] 4.4 mmol/L Normal 3.5 - 5.3 [facility] Comment on above: Performed By: #### B MP #### [facility] [address] [place] [address] Sodium [Moles/Vol] 141 mmol/L Normal 136 - 145 [facility] Comment on above: Performed By: #### B MP #### [facility] [address] [place] [address] Urea nitrogen [Mass/Vol] 10 mg/dL Normal 6 - 23 [facility] Comment on above: Performed By: #### B MP #### [facility] [address] [place] [address] CBC AND DIFFERENTIALon 12-22 % AUTOMATED IMMATURE GRAN 0.3 % Normal 0.0 - 0.9 [facility] Comment on above: Result Comment: Perc ent differential counts (%) should be interpreted in the context of the absolute cell counts (cells/L). Performed By: #### C BCDF #### [facility] [address] [place] [address] Basophils (Bld) [#/Vol] 0.15 10*3/uL High 0.00 - 0.1 0 [facility] Comment on above: Performed By: #### C BCDF #### [facility] [address] [place] [address] Basophils/100 WBC (Bld) 1.4 % Normal 0.0 - 2.0 [facility] Comment on above: Performed By: #### C BCDF #### [facility] [address] [place] [address] Eosinophils (Bld) [#/Vol] 0.35 10*3/uL Normal 0.00 - 0.70 [facility] Comment on above: Performed By: #### C BCDF #### [facility] [address] [place] [address] Eosinophils/100 WBC (Bld) 3.2 % Normal 0.0 - 6.0 [facility] Comment on above: Performed By: #### C BCDF #### [facility] [address] [place] [address] Erythrocyte distribution width (RBC) [Ratio] 14.0 % Normal 11.5 - 14.5 [facility] Comment on above: Performed By: #### C BCDF #### [facility] [address] [place] [address] Hematocrit (Bld) [Volume fraction] 49.7 % Normal 41.0 - 52.0 [facility] Comment on above: Performed By: #### C BCDF #### [facility] [address] [place] [address] Hemoglobin (Bld) [Mass/Vol] 16.8 g/dL Normal 13.5 - 17.5 [facility] Comment on above: Performed By: #### C BCDF #### [facility] [address] [place] [address] Lymphocytes (Bld) [#/Vol] 3.79 10*3/uL Normal 1.20 - 4.80 [facility] Comment on above: Performed By: #### C BCDF #### [facility] [address] [place] [address] Lymphocytes/100 WBC (Bld) 34.3 % Normal 13.0 - 44.0 [facility] Comment on above: Performed By: #### C BCDF #### [facility] [address] [place] [address] MCHC (RBC) [Mass/Vol] 33.8 g/dL Normal 32.0 - 36.0 [facility] Comment on above: Performed By: #### C BCDF #### [facility] [address] [place] [address] MCV (RBC) [Entitic vol] 88 fL Normal 80 - 100 [facility] Comment on above: Performed By: #### C BCDF #### [facility] [address] [place] [address] Monocytes (Bld) [#/Vol] 1.32 10*3/uL High 0.10 - 1.0 0 [facility] Comment on above: Performed By: #### C BCDF #### [facility] [address] [place] [address] Monocytes/100 WBC (Bld) 11.9 % Normal 2.0 - 10.0 [facility] Comment on above: Performed By: #### C BCDF #### [facility] [address] [place] [address] Neutrophils (Bld) [#/Vol] 5.41 10*3/uL Normal 1.20 - 7.70 [facility] Comment on above: Performed By: #### C BCDF #### [facility] [address] [place] [address] Neutrophils/100 WBC (Bld) 48.9 % Normal 40.0 - 80.0 [facility] Comment on above: Performed By: #### C BCDF #### [facility] [address] [place] [address] Nucleated RBC/100 WBC (Bld) [Ratio] 0.0 /100 WBC Normal 0.0-0.0 [facility] Comment on above: Performed By: #### C BCDF #### [facility] [address] [place] [address] Platelets (Bld) [#/Vol] 480 10*3/uL High 150 - 450 [facility] Comment on above: Performed By: #### C BCDF #### [facility] [address] [place] [address] RBC (Bld) [#/Vol] 5.64 x10E12/L Normal 4.50 - 5.90 [facility] Comment on above: Performed By: #### C BCDF #### [facility] [address] [place] [address] WBC (Bld) [#/Vol] 11.1 10*3/uL Normal 4.4 - 11.3 [facility] Comment on above: Performed By: #### C BCDF #### [facility] [address] [place] [address] COAGULATION SCREENon 019 aPTT Coag (Bld) [Time] 36 s Normal 28 - 38 [facility] Comment on above: Result Comment: THE APTT IS NO LONGER USED FOR MONITORING UNFRACTIONATED HEPARIN THERAPY. FOR MONITORING HEPARIN THERAPY, USE THE HEPARIN ASSAY. Performed By: #### C OAGS #### [facility] [address] [place] [address] INR Coag (PPP) [Relative time] 1.0 {INR} Normal 0.9 - 1.1 [facility] Comment on above: Performed By: #### C OAGS #### [facility] [address] [place] [address] PT Coag (PPP) [Time] 11.0 s Normal 9.7 - 12.7 [facility] Comment on above: Performed By: #### C OAGS #### [facility] [address] [place] [address] Consult-Gastroenterologyon 0 12-22-2018 Consult-Gastroenterology Service: Service: Gastroenterology [...] cephalosporins: Hives/Urticaria Objective: Objective Information: T PRBPSpO2 Value36.73660070/7698% Date/Time12/22 18: 18: 18: 18: 18:27 Range(36.2C [...] discussed with Dr. Slater. GI will follow. Signature/Cosignature/A ttestation: Note Completion: Attending AttestationI saw and evaluated [...] the note. I personally evaluated the patient [id number] Electronic Signatures: Ondina Slater) (Signed 05-Jan-2019 09:09) Authored: Objective, Signature/Cosignature/A ttestation Co-Signer: History of Present Illness, Objective, Assessment/Recommendati ons, Signature/Cosignature/A ttestation Jody Ochoa (Fellow)) (Signed 22-Dec-2018 21:27) Authored: Service, History of Present Illness, Allergies, Objective, Assessment/Recommendati ons, Signature/Cosignature/A ttestation Last Updated: 05-Jan-2019 09:09 by Ondina Slater) Normal [facility] Provider Note - ED v2on 11-29 Provider [...] 19 days ago. He was seen at [facility] ED right afterwards with negative chest X-ray and abdominal xray. Patient was then referred to GI and ENT doctors with no finding from esophagoscopy. In his barium esophagram done yesterday at [facility], there was a foreign body of 1.3 x 0.8cm in the upper esophagus causing focal esophagus dilation. He was referred to GI , however due to insurance purposes was told to come to [facility] for GI consult. Patient has been [...] responsive, no acute distress Head and neck: normocephalic/atraumati c, trachea midline, no mass/ rash/ lymphadenopathy, no thyroid tenderness/ nodules Eyes: anicteric, PERRL, EOMI, no conjunctival pallor ENMT: moist mucous membranes, no cervical lymphadenopathy, no mucosal pallor; oropharynx appears normal without swelling, exudates or lesions. Uvula is midline and non-edematous. Pulmonary: normal breathing without labor, CTAB w/o rhonchi/crackles/strido r/wheezing Cardiovascular: Normal rate & rhythm w/o rub/gallop/murmur. [...] SIGNS: T PRBP SpO2O2(LPM) %FiO2 Method 22-Dec-2018 13:46:00-3026922/71 100 room air, no respiratory support 22-Dec-2018 11:36:00-6249685/79 96 room air, no respiratory support 22-Dec-2018 [...] ill patient: no Electronic Signatures: Sobeida More (BOILER PLANT WORKER-AUTOMATION QTP TESTER) (Signed 22-Dec-2018 17:00) Authored: Provider Note - ED v2 Barbara, Devyn A (DO) (Signed 22-Dec-2018 16:50) Authored: Provider Note - ED v2 Co-Signer: Provider Note - ED v2 Last Updated: 22-Dec-2018 17:00 by Sobeida More (BOILER PLANT WORKER-AUTOMATION QTP TESTER) References: 1. Data Referenced From Triage - ED 12/22/2018 10:13 AM Normal [facility] Risk Screen - Adult Emergenc yon 12-22-2018 Risk Screen - Adult Emergency Preferred Language: Preferred Language: Preferred Language for Discussing Health Care (patient/designee)Vernell munguia Advanced Directives: Advance Directive Medicalno Family Violence [...] Learning Preferencesindividual instruction Cultural Considerationsnone Developmental Considerationsnone Presybeterian Considerationsnone Learning Assessment (Other Learner): Learning Assessment (Other Learner): Other learner availableyes... Learnermother Factors Influencing Readiness to Learnacuteness of illness Factors that Impact Ability to Learnnone Devices/Methods Used to Communicatenone Learning Preferencesindividual instruction Cultural Considerationsnone Developmental Considerationsnone Presybeterian Considerationsnone Pressure Injury/TB/Substance: Pressure Injury: Pressure Injury Present on Admissionno Do you have a coughno Substance Use Current or Former Historynever: Cigarette/Tobacco, e-Cigarette/Vaping, Alcohol, Street Drugs Admission Risk Screen: Significant IndicatorsComplete CAGE: CAGE: Is this an injured patient at a Trauma Center ([facility]/[place]): no Electronic Signatures: Sunitha Ibarra (RN) (Signed 22-Dec-2018 10:53) Authored: Preferred Language, Advanced Directives, Family Violence Adult, Learning Assessment (Patient), Learning Assessment (Other Learner), Pressure Injury/TB/Substance, CAGE Last Updated: 22-Dec-2018 10:53 by Sunitha Ibarra (RN) Normal [facility] TH CHEST 2 VIEW PA AND LATon 12-22-2018 TH CHEST 2 VIEW PA AND LAT Patient Name: LUIS ENRIQUE DE LUNA STUDY: TH CHEST 2 VIEW PA AND LAT; 12/22/2018 12:05 pm INDICATION: swallowed aluminum foil. COMPARISON/CORRELATION: None available. ACCESSION NUMBER(S): [id number] ORDERING CLINICIAN: SOBEIDA MORE TECHNIQUE: PA, Lateral [...] as stated. This study was interpreted at [facility], [place], [place]. Electronically signed by: ANUJ BOO MD [facility] Triage - EDon 12-22-2018 Triage - ED [...] than 3 weeks: no Travel outside of [place]: no Allergies: yes Patient has homicidal thoughts: no ESCOBAR: 3 [place] Suicide Suicide Risk Screen In the Past [...] Accompanied By: self Language: Spoken Language Preferred: Lao Reading Language Preferred: Lao Nascar Racer Requested: no program host was requested PRIMARY ASSESSMENT ANNAMARIE LARIOS's primary assessment is Within Normal Limits. The airway is open and patent. Breathing spontaneous and unlabored with clear breath sounds bilaterally. Circulation is normal with good peripheral pulses. Skin is warm and dry and color is normal for race. Past Medical History: Past Medical History Reviewedyes Electronic Signatures: Darleen Mayberry (RN) (Signed 22-Dec-2018 18:07) Authored: Triage Quentin Carter (PA (PHYSICIAN)) (Signed 22-Dec-2018 17:54) Authored: Triage Noemi Gabriel (RN) (Signed 22-Dec-2018 16:10) Authored: Triage Edwina Bass (RN) (Signed 22-Dec-2018 10:17) Authored: Triage, Past Medical History Last Updated: 22-Dec-2018 18:07 by Darleen Mayberry (RN) Normal [facility] Vital Signs Date Time Vital Sign Value Performing Clinician Facility 02-16-2025 09:24-0400 Heart rate 78 /min Dr. Nikita Sorensen MD Work Phone: [facility] 02-16-2025 09:13-0400 Body temperature 97.6 [degF] Dr. Nikita Sorensen MD Work Phone: [facility] 02-16-2025 09:13-0400 Diastolic blood pressure 82 mm[Hg] Dr. Nikita Sorensen MD Work Phone: [facility] 02-16-2025 09:13-0400 Respiratory rate 16 /min Dr. Nikita Sorensen MD Work Phone: [facility] 02-16-2025 09:13-0400 SaO2% (BldA) [Mass fraction] 97 % Dr. Nikita Sorensen MD Work Phone: [facility] 02-16-2025 09:13-0400 Systolic blood pressure 149 mm[Hg] Dr. Nikita Sorensen MD Work Phone: [facility] 02-13-2025 19:33-0400 Body height 175.[address] Nikita Sorensen MD Work Phone: [facility] 02-13-2025 19:33-0400 Body mass index (BMI) [Ratio] 28.8 kg/m2 Dr. Nikita Sorensen MD Work Phone: 8(171)479-700088 [place] [address] 02-13-2025 19:33-0400 Body weight 88.[address] Nikita Sorensen MD Work Phone: 6(347)627-757185 [place] [address] 02-13-2025 18:00-0400 Body temperature 99 [degF] Dr. Nikita Sorensen MD Work Phone: 1(276)837-147085 [place] [address] 02-13-2025 18:00-0400 Diastolic blood pressure 74 mm[Hg] Dr. Nikita Sorensen MD Work Phone: 0(656)964-369988 [place] [address] 02-13-2025 18:00-0400 Heart rate 102 /min Dr. Nikita Sorensen MD Work Phone: 8(026)119-926785 [place] [address] 02-13-2025 18:00-0400 Respiratory rate 20 /min Dr. Nikita Sorensen MD Work Phone: 3(951)685-063685 [place] [address] 02-13-2025 18:00-0400 SaO2% (BldA) [Mass fraction] 100 % Dr. Nikita Sorensen MD Work Phone: [facility] 02-13-2025 18:00-0400 Systolic blood pressure 165 mm[Hg] Dr. Nikita Sorensen MD Work Phone: 5(349)181-952088 [place] [address] 02-13-2025 14:36-0400 Body height 175.[address] Nikita Sorensen MD Work Phone: 8(016)312-349988 [place] [address] 02-13-2025 14:36-0400 Body mass index (BMI) [Ratio] 28.9 kg/m2 Dr. Nikita Sorensen MD Work Phone: [facility] 02-13-2025 14:36-0400 Body weight 88.[address] Nikita Sorensen MD Work Phone: [facility] 08-04-2024 03:17-0500 Body temperature 97.59 [degF] Madelyn Crain MD Work Phone: [facility] 08-04-2024 03:17-0500 Diastolic blood pressure 70 mm[Hg] Madelyn Crain MD Work Phone: [facility] 08-04-2024 03:17-0500 Heart rate 83 /min Madelyn Crain MD Work Phone: [facility] 08-04-2024 03:17-0500 Respiratory rate 18 /min Madelyn Crain MD Work Phone: [facility] 08-04-2024 03:17-0500 SaO2% (BldA) [Mass fraction] 94 % Madelyn Crain MD Work Phone: [facility] 08-04-2024 03:17-0500 Systolic blood pressure 121 mm[Hg] Madelyn Crain MD Work Phone: [facility] 08-04-2024 01:25-0500 Body height 175.3 cm Madelyn Crain MD Work Phone: [facility] 08-04-2024 01:25-0500 Body mass index (BMI) [Ratio] 28.06 kg/m2 Madelyn Crain MD Work Phone: [facility] 08-04-2024 01:25-0500 Body weight 86.18 kg Madelyn Crain MD Work Phone: [facility] 08-13-2023 18:54-0500 Body temperature 101.5 [degF] Naty Nagy [employer] Work Phone: [facility] 08-13-2023 18:54-0500 Body weight 89.81 kg Naty Nagy [employer] WORK[employer] TE[employer] Work Phone: [facility] 08-13-2023 18:54-0500 Diastolic blood pressure 86 mm[Hg] Naty Nagy [employer] WORKER.[employer]ATION [employer] TE[employer] Work Phone: [facility] 08-13-2023 18:54-0500 Heart rate 122 /min Naty Nagy [employer] WORKER.[employer]ATION [employer] TESTER Work Phone: [facility] 08-13-2023 18:54-0500 Respiratory rate 18 /min Naty Nagy [employer] WORK[employer]OMATION [employer] TE[employer] Work Phone: [facility] 08-13-2023 18:54-0500 SaO2% (BldA) [Mass fraction] 97 % Naty Nagy [employer] WORKER.[employer]OMATION [employer] TESTER Work Phone: [facility] 08-13-2023 18:54-0500 Systolic blood pressure 142 mm[Hg] Naty Nagy [employer] WORKER.[employer]OMATION [employer] TESTER Work Phone: [facility] 05-20-2023 12:50-0500 Diastolic blood pressure 74 mm[Hg] Nasrin Jaffe MD Work Phone: [facility] 05-20-2023 12:50-0500 Heart rate 59 /min Nasrin Jaffe MD Work Phone: [facility] 05-20-2023 12:50-0500 Respiratory rate 11 /min Nasrin Jaffe MD Work Phone: [facility] 05-20-2023 12:50-0500 SaO2% (BldA) [Mass fraction] 99 % Nasrin Jaffe MD Work Phone: [facility] 05-20-2023 12:50-0500 Systolic blood pressure 118 mm[Hg] Nasrin Jaffe MD Work Phone: [facility] 05-20-2023 12:25-0500 Body temperature 97 [degF] Nasrin Jaffe MD Work Phone: [facility] 05-20-2023 09:12-0500 Body height 175.3 cm Nasrin Jaffe MD Work Phone: [facility] 05-20-2023 09:12-0500 Body mass index (BMI) [Ratio] 27.62 kg/m2 Nasrin Jaffe MD Work Phone: [facility] 05-20-2023 09:120500 Body weight 84.82 kg Nasrin Jaffe MD Work Phone: [facility] 05-01-2023 09:11-0400 Body temperature 98.4 [degF] Mare Bridenthal [employer] WORKER - [employer]ATION [employer] TE[employer] Work Phone: [facility] 05-01-2023 09:11-0400 Diastolic blood pressure 84 mm[Hg] Mare Bridenthal [employer] WORKER - [employer] TE[employer] Work Phone: [facility] 05-01-2023 09:11-0400 Heart rate 84 /min Mare Bridenthal [employer] WORK[employer] - [employer]ATION [employer] TE[employer] Work Phone: [facility] 05-01-2023 09:11-0400 SaO2% (BldA) [Mass fraction] 98 % Mare Bridenthal [employer] WORKER - [employer]OMATION [employer] TESTER Work Phone: [facility] 05-01-2023 09:11-0400 Systolic blood pressure 129 mm[Hg] Mare Bridenthal [employer] WORKER - [employer]OMATION [employer] TESTER Work Phone: [facility] 04-30-2023 13:29-0400 Body height 175.3 cm [employer] Work Phone: [facility] 04-30-2023 13:29-0400 Body mass index (BMI) [Ratio] 27.62 kg/m2 [employer] PA-C Work Phone: [facility] 04-30-2023 13:29-0400 Body weight 84.82 kg [employer] Work Phone: [facility] 04-19-2023 19:43-0400 Diastolic blood pressure 62 mm[Hg] [facility] 04-19-2023 19:43-0400 Heart rate 72 /min [facility] 04-19-2023 19:43-0400 Respiratory rate 18 /min [facility] 04-19-2023 19:43-0400 SaO2% (BldA) [Mass fraction] 97 % [facility] 04-19-2023 19:43-0400 Systolic blood pressure 133 mm[Hg] [facility] 04-19-2023 18:15-0400 Body height 175.26 cm [facility] 04-19-2023 18:15-0400 Body mass index (BMI) [Ratio] 27.3 kg/m2 [facility] 04-19-2023 18:15-0400 Body temperature 97.6 [degF] [facility] 04-19-2023 18:15-0400 Body weight 84.18 kg [facility] 10-21-2022 08:34-0400 Body temperature 98.4 [degF] [facility] [employer] WORKER.AUTOMATION QTP TESTER Work Phone: [facility] 10-21-2022 08:34-0400 Body weight 84.55 kg [facility] [employer] WORKER.AUTOMATION [employer] TESTER Work Phone: [facility] 10-21-2022 08:34-0400 Diastolic blood pressure 80 mm[Hg] [facility] [employer] WORKER.[employer]OMATION [employer] TESTER Work Phone: [facility] 10-21-2022 08:34-0400 Heart rate 100 /min [facility] [employer] WORKER.[employer]ATION [employer] TE[employer] Work Phone: [facility] 10-21-2022 08:34-0400 Respiratory rate 21 /min [facility] [employer] WORK[employer]OMATION [employer] TE[employer] Work Phone: [facility] 10-21-2022 08:34-0400 SaO2% (BldA) [Mass fraction] 98 % Didier Cor[facility] [employer] WORKER.AUTOMATION [employer] TESTER Work Phone: [facility] 10-21-2022 08:34-0400 Systolic blood pressure 132 mm[Hg] [facility] [employer] WORKER.[employer]OMATION [employer] TE[employer] Work Phone: [facility] 09-21-2022 10:01-0400 Body temperature 99.19 [degF] Iain Lobo PA-C Work Phone: [facility] 09-21-2022 10:01-0400 Body weight 84.01 kg Iain Lobo PA-C Work Phone: [facility] 09-21-2022 10:01-0400 Diastolic blood pressure 82 mm[Hg] Iain Athy PA-C Work Phone: [facility] 09-21-2022 10:01-0400 Heart rate 72 /min Iain Athy PA-C Work Phone: [facility] 09-21-2022 10:01-0400 Respiratory rate 16 /min Iain Athy PA-C Work Phone: [facility] 09-21-2022 10:01-0400 SaO2% (BldA) [Mass fraction] 97 % Iain Athy PA-C Work Phone: [facility] 09-21-2022 10:01-0400 Systolic blood pressure 128 mm[Hg] Iain Athy PA-C Work Phone: [facility] 04-29-2022 12:04-0400 Body temperature 98.71 [degF] Dora Bogner PA-C Work Phone: [facility] 04-29-2022 12:04-0400 Body weight 76.2 kg Dora Bogner PA-C Work Phone: [facility] 04-29-2022 12:04-0400 Diastolic blood pressure 72 mm[Hg] Dora Bogner PA-C Work Phone: [facility] 04-29-2022 12:04-0400 Heart rate 84 /min Dora Bogner PA-C Work Phone: [facility] 04-29-2022 12:04-0400 Respiratory rate 16 /min Dora Bogner PA-C Work Phone: [facility] 04-29-2022 12:04-0400 SaO2% (BldA) [Mass fraction] 99 % Dora Bogner PA-C Work Phone: [facility] 04-29-2022 12:04-0400 Systolic blood pressure 124 mm[Hg] Dora Bogner PA-C Work Phone: [facility] 02-05-2022 19:12-0400 Body temperature 98.4 [degF] Jj Barry [employer] WORKER[employer]ATION [employer] TESTER Work Phone: [facility] 02-05-2022 19:12-0400 Body weight 75.3 kg Jj Barry [employer] WORKER.[employer]OMATION [employer] TESTER Work Phone: [facility] 02-05-2022 19:12-0400 Diastolic blood pressure 86 mm[Hg] Jj Barry [employer] WORKER.AUTOMATION [employer] TE[employer] Work Phone: [facility] 02-05-2022 19:12-0400 Heart rate 74 /min Jj Barry [employer] WORKER.AUTOMATION [employer] TESTER Work Phone: [facility] 02-05-2022 19:12-0400 Respiratory rate 20 /min Jj Barry [employer] WORKER.AUTOMATION [employer] TESTER Work Phone: [facility] 02-05-2022 19:12-0400 SaO2% (BldA) [Mass fraction] 99 % Jj Barry [employer] WORKER.AUTOMATION [employer] TESTER Work Phone: [facility] 02-05-2022 19:12-0400 Systolic blood pressure 128 mm[Hg] Jj Barry [employer] WORKER.AUTOMATION [employer] TESTER Work Phone: [facility] 01-19-2022 16:39-0400 Respiratory rate 18 /min [facility] Work Phone: 01-19-2022 16:27-0400 Body height 175.26 cm [facility] Work Phone: 01-19-2022 16:27-0400 Body mass index (BMI) [Ratio] 25.1 kg/m2 [facility] Work Phone: 01-19-2022 16:27-0400 Body temperature 98.6 [degF] [facility] Work Phone: 01-19-2022 16:27-0400 Body weight 77.11 kg [facility] Work Phone: 01-19-2022 16:27-0400 Diastolic blood pressure 91 mm[Hg] [facility] Work Phone: 01-19-2022 16:27-0400 Heart rate 88 /min [facility] Work Phone: 01-19-2022 16:27-0400 SaO2% (BldA) [Mass fraction] 100 % [facility] Work Phone: 01-19-2022 16:27-0400 Systolic blood pressure 131 mm[Hg] [facility] Work Phone: Encounters Encounter Date Encounter Type Care Provider Facility Start: 05-31-2025 ambulatory [facility] [place] Start: 02-15-2025 Non-patient / Non-visit Dr. Alise Chau MD -[facility] Work Phone: Start: 02-14-2025 ambulatory [facility] [place] Start: 02-14-2025 Non-patient / Non-visit Dr. Karo jacobson MD -[facility] Start: 02-14-2025 Non-patient / Non-visit Dr. Alise Chau MD -[facility] Work Phone: Start: 02-13-2025 ambulatory Xochilt De Jesus Facility:[facility] Start: 02-13-2025 End: 02-16-2025 Evaluation and management of inpatient Dr. Xochilt De Jesus MD -[facility] Work Phone: Start: 08-04-2024 End: 08-04-2024 Emergency department patient visit Madelyn Crain MD Work Phone: [facility] Comment on above: Depression, unspecif ied depression type (Primary Dx) Start: 08-13-2023 End: 08-13-2023 ambulatory [facility] Facility:[facility] Start: 08-13-2023 End: 08-13-2023 Patient encounter procedure Naty Nagy [employer] WORK[employer] TE[employer] Work Phone: [facility] Comment on above: Strep throat (Primar y Dx) Start: 07-25-2023 Refill Mare bateman [employer] WORK[employer] - [employer] TE[employer] Work Phone: [facility] Start: 06-30-2023 Refill Marebernabe Floyd fransico [employer] WORKER - [employer] TE[employer] Work Phone: [facility] Start: 05-25-2023 Refill Lanny Claudio [employer] WORK[employer] - [employer] Work Phone: [facility] Start: 05-20-2023 End: 05-20-2023 Subsequent hospital visit by physician Nasrin Jaffe MD Work Phone: [facility] Comment on above: Mass of soft tissue of face (Primary Dx); Other specified soft tissue disorders Start: 05-02-2023 Telephone encounter Mare Zavaleta sam [employer] WORK[employer] - [employer] TE[employer] Work Phone: [facility] Comment on above: Results Start: 05-01-2023 End: 05-01-2023 Patient encounter procedure Mare Strongvaleriadarío [employer] WORK[employer] - [employer] TE[employer] Work Phone: [facility] Work Phone: Start: 05-01-2023 End: 05-01-2023 Periodic preventive med est patient 18-39 yrs Mare Stronglidia [employer] WORKER - [employer] TE[employer] Work Phone: [facility] Comment on above: Annual physical exam (Primary Dx); Need for hepatitis C screening test; Screening for HIV (human immunodeficiency virus); Screening for lipid disorders Start: 04-30-2023 Telephone encounter Nasrin Jaffe MD Work Phone: [facility] Comment on above: Surgery Scheduling ( [facility]) Start: 04-30-2023 End: 04-30-2023 Office outpatient visit 15 minutes Edwina Delaney PA-C Work Phone: [facility] Comment on above: Mass of soft tissue of face (Primary Dx) Start: 04-25-2023 Refill Nikita Sorensen MD Work Phone: [facility] Start: 04-25-2023 Telephone encounter Nikita Angulo MD Work Phone: [facility] Comment on above: Release of Informati on Start: 04-19-2023 End: 04-19-2023 Emergency department patient visit [facility] Work Phone: Start: 10-24-2022 ambulatory [facility] Start: 10-24-2022 Patient encounter procedure Malena Polanco RN [facility] Clinical Communication Start: 10-21-2022 End: 10-21-2022 ambulatory [facility] Facility:[facility] Start: 10-21-2022 End: 10-21-2022 Office outpatient visit 15 minutes Didier Kilgore [employer] WORK[employer] TE[employer] Work Phone: [facility] Comment on above: Sore throat (Primary Dx); Viral URI Start: 09-21-2022 End: 09-21-2022 ambulatory [facility] Facility:[facility] Start: 09-21-2022 End: 09-21-2022 Patient encounter procedure Iani Lobo PA-C Work Phone: [facility] Comment on above: Viral URI (Primary D x) Start: 04-29-2022 End: 04-29-2022 Office outpatient visit 15 minutes Dora Sexton PA-C Work Phone: [facility] Comment on above: Nausea (Primary Dx) Start: 02-05-2022 End: 02-05-2022 Patient encounter procedure Jj Barry APRN.AUTOMATION QTP TESTER Work Phone: [facility] Comment on above: Rash (Primary Dx) Start: 01-19-2022 End: 01-19-2022 Emergency department patient visit [facility] Start: 06-07-2021 End: 06-07-2021 Subsequent hospital visit by physician Chetna Coburn [employer] WORK[employer] - [employer] TE[employer] Work Phone: [facility] Rad[facility] Comment on above: COVID-19 Procedures Date Procedure Procedure Detail Performing Clinician Start: 02-14-2025 CT angiography of ch est with contrast Dr. Nikita Sorensen MD Work Phone: Start: 02-14-2025 D-dimer assay, quantitative Dr. Nikita Sorensen MD Work Phone: Comment on above: D-Dimer ELEVATED (>0 .49): Additional studies and clinicalassessments are indicated to conclude diagnosis of:Deep Vein Thrombosis (DVT) or Pulmonary Embolism (PE)CRITICAL VALUE CALLED TO KAREEM GONZALEZ02/14/25 1512 Josselyn Flor.RESULTS READ BACK BY SAME. Start: 02-14-[address] Nikita Sorensen MD Work Phone: Start: 02-13-2025 Methadone measurement, urine Dr. Nikita Sorensen MD Work Phone: Start: 02-13-[address] Nikita Sorensen MD Work Phone: Start: 08-04-2024 Ecg routine ecg w/le ast 12 lds trcg only w/o i&r Madelny Crain MD Work Phone: Start: 08-04-2024 SARS-CoV-2 (COVID-19 ) Ag [Presence] in Respiratory specimen by Rapid immunoassay Madelyn Crain MD Work Phone: Start: 08-04-2024 Urinalysis complete panel - Urine Madelyn Crain MD Work Phone: Start: 08-04-2024 Urnls dip stick/tabl et reagent auto microscopy Madelyn Crain MD Work Phone: Start: 08-04-2024 Comprehensive metabolic panel Madelyn Crain MD Work Phone: Start: 08-04-2024 End: 08-04-2024 Drug test def 1-7 classes Madelyn monroe MD Work Phone: Start: 08-13-2023 STREP A MOLECULAR (POC) [facility] Provider Start: 05-19-2023 Lipid panel Mare Br identhal [employer] WORK[employer] - [employer] TE[employer] Work Phone: Start: 05-19-2023 Transferase aspartat e amino ast sgot Mare Bridenthal [employer] WORKER - [employer] TE[employer] Work Phone: Start: 05-19-2023 Lipid 1996 panel - S nan or Plasma Madelyn Crain MD Work Phone: Start: 05-01-2023 Adult depression scr eening assessment Mare Robb [employer] WORKER - [employer] TE[employer] Work Phone: Start: 10-21-2022 STREP A MOLECULAR (POC) Naty Smileygs [employer] WORKER.[employer]OMATION [employer] TESTER Work Phone: Start: 09-21-2022 STREP A MOLECULAR (POC) Iain Lobo PA-C Work Phone: Start: 04-29-2022 STREP A MOLECULAR (POC) Dora Sexton PA-C Work Phone: Start: 06-07-2021 Radiologic exam chest 2 views Chetna Tobar Jerald [employer] WORK[employer] - [employer] TE[employer] Work Phone: Plan of Treatment Date Care Activity Detail Author Start: 2064 RSV Immunization for Adults (1 - 1-dose 75+ series) RSV Immunization for Adults (1 - 1-dose 75+ series) [facility] Start: 2049 RSV Immunization aged 60 or older (1 - 1-dose 60+ series) RSV Immunization aged 60 or older (1 - 1-dose 60+ series) [facility] Start: 2039 Zoster Vaccines (1 of 2) Zoster Vaccines (1 of 2) [facility] Start: 05-19-2028 Lipid panel Lipid Panel [facility] Start: 02-16-[address] [facility] Start: 02-13-2025 Assessment of risk of venous thromboembolism [facility] Start: 02-13-[address] [facility] Start: 02-13-2025 Insertion of catheter into peripheral vein [facility] Start: 02-13-2025 Providing care according to standard [facility] Start: 02-13-2025 Provision of activity privileges [facility] Start: 02-13-2025 [facility] Start: 02-13-2025 Following clinical pathway protocol [facility] Start: 02-13-[address] [facility] Start: 02-13-[address] [facility] Start: 02-13-2025 Hospital admission, emergency, from emergency room, medical nature [facility] Start: 02-13-2025 [facility] Start: 02-13-[address] [facility] Start: 05-03-2024 End: 05-03-2024 Patient encounter procedure 05/03/2024 8:00 AM EST Office Visit [facility] [address] [place] [address] [place] [address] Bridenthal, Mare, [employer] WORK[employer] - [employer] TE[employer] [address] [place] [address] [place] [address] [facility] Start: 05-01-2024 Depression Screening Depression Screening [facility] Start: 04-30-2024 End: 04-30-2024 Patient encounter procedure 04/30/2024 7:00 AM EDT Office Visit [facility] [address] [place] [address] [place] [address] Bridenthal, Mare, [employer] WORKER - [employer]ATION [employer] TE[employer] [address] [place] [address] [place] [address] [facility] Start: 02-29-2024 COVID-19 Vaccine ( season) COVID-19 Vaccine ( season) [facility] Start: 02-29-2024 Influenza vaccination Influenza Vaccine (#1) [facility] Start: 10-30-2023 Depression Monitoring Depression Monitoring [facility] Start: 07-16-2023 End: 07-16-2023 Patient encounter procedure 07/16/2023 10:30 AM EST Office Visit [facility] [address] [place] [address] [place] [id number] Edwina Delaney PA-C [address] [place] [address] [place] [address] [facility] Start: 07-08-2023 End: 07-08-2023 Admission to same day surgery center 07/08/2023 7:30 AM EST - 07/08/2023 8:30 AM EST Surgery [facility] MA[facility] OR [address] [place] [id number] Nasrin Jaffe MD [address] [facility] [place] [address] EXCISION OF SOFT TISSUE MASS OF THE RIGHT FOREHEAD WITH IMMEDIATE VERSUS COMPLEX CLOSURE [54504 (CPT )] [facility] Comment on above: EXCISION OF SOFT TISSUE MASS OF THE RIGH T FOREHEAD WITH IMMEDIATE VERSUS COMPLEX CLOSURE [38814 (CPT )] Start: 07-08-2023 End: 07-08-2023 Exc b9 les mrgn xcp sk tg f/e/e/n/l/m 1.1-2.0cm EXCISION BENIGN LESION FACE EARS EYELIDS NOSE LIPS MUCOUS MEMBRANES 1.1 TO 2.0 CM Other specified soft tissue disorders 07/08/2023 7:30 AM EST [facility] Operating Room Start: 07-08-2023 End: 07-08-2023 Repair complex f/c/c/m/n/ax/g/h/f 1.1-2.5 cm REPAIR COMPLEX WOUND OF FOREHEAD CHEEK CHIN MOUTH NECK AXILLAE GENITALIA HANDS FEET 1.1 TO 2.5 CM Other specified soft tissue disorders 07/08/2023 7:30 AM EST [facility] Operating Room Start: 07-08-2023 End: 07-08-2023 Repair intermediate f/e/e/n/l&/muc 2.5 cm/< REPAIR INTERMEDIATE WOUNDS OF FACE EARS EYELIDS NOSE LIPS MUCOUS MEMBRANES 2.5 CM OR LESS Other specified soft tissue disorders 07/08/2023 7:30 AM EST [facility] Operating Room Start: 07-08-2023 Subsequent hospital visit by physician 07/08/2023 7:30 AM EST Hospital Encounter [facility] OR [address] [place] [address] Nasrin Jaffe MD [address] [facility] [place] [id number] [facility] Start: 06-30-2023 Depression Assessment Depression Assessment [facility] Start: 06-01-2023 End: 05-02-2024 Alanine aminotransferase [Enzymatic activity/volume] in Serum or Plasma ALT Lab Routine Mixed hyperlipidemia Expected: 06/01/2023 (Approximate), Expires: 05/02/2024 [facility] Work Phone: Comment on above: Expected: 06/01/2023 (Approximate), Expi res: 05/02/2024 Start: 06-01-2023 End: 05-02-2024 Aspartate aminotransferase [Enzymatic activity/volume] in Serum or Plasma AST Lab Routine Mixed hyperlipidemia Expected: 06/01/2023 (Approximate), Expires: 05/02/2024 [facility] Comment on above: Expected: 06/01/2023 (Approximate), Expi res: 05/02/2024 Start: 06-01-2023 End: 05-02-2024 Lipid 1996 panel - Serum or Plasma Lipid panel Lab Routine Mixed hyperlipidemia Expected: 06/01/2023 (Approximate), Expires: 05/02/2024 [facility] Comment on above: Expected: 06/01/2023 (Approximate), Expi res: 05/02/2024 Start: 05-30-2023 End: 05-30-2023 Clinical Support 05/30/2023 8:00 AM EST Clinical Support [facility] [address] [facility] [address] [place], [place] [id number] [facility] Start: 05-28-2023 End: 05-28-2023 Patient encounter procedure 05/28/2023 10:45 AM EST Office Visit [facility] [address] [place] [phone] Edwina Delaney PA-C [address] [place] [address] [place] [id number] [facility] Start: 05-20-2023 End: 05-20-2023 Admission to same day surgery center 05/20/2023 11:00 AM EST - 05/20/2023 12:00 PM EST Surgery [facility] MAIN OR [address] [place] [address] Nasrin Jaffe MD [address] [place] [address] EXCISION OF SOFT TISSUE MASS OF THE RIGHT FOREHEAD WITH IMMEDIATE VERSUS COMPLEX CLOSURE [72845 (CPT )] [facility] Comment on above: EXCISION OF SOFT TISSUE MASS OF THE RIGH T FOREHEAD WITH IMMEDIATE VERSUS COMPLEX CLOSURE [25345 (CPT )] Start: 05-20-2023 End: 05-20-2023 Anesthesia consultation 05/20/2023 11:00 AM EST Anesthesia Event [facility] OR [address] [place] [address] Josselyn Dobson RN [facility] Start: 05-20-2023 End: 05-20-2023 Exc [...] soft tissue disorders 05/20/2023 11:00 AM EST [facility] Operating Room Start: 05-20-2023 Subsequent hospital visit by physician 05/20/2023 11:00 AM EST Hospital Encounter [facility] MA[facility] OR [address] [place] [address] Nasrin Jaffe MD [address] [place], [place] [id number] [facility] Start: 05-19-2023 End: 05-19-2023 Clinical Support 05/19/2023 7:30 AM EST Clinical Support [facility] [address] [place] [address] [facility] Start: 05-02-2023 Pneumococcal vaccination Pneumococcal Vaccine (2 of 2 - PCV) [facility] Start: 05-02-2023 Pneumococcal Vaccine: Pediatrics (0 to 5 Years) and At-Risk Patients (6 to 49 Years) (3 of 3 - PCV) Pneumococcal Vaccine: Pediatrics (0 to 5 Years) and At-Risk Patients (6 to 49 Years) (3 of 3 - PCV) [facility] Start: 05-02-2023 Pneumococcal Vaccine: Pediatrics (0 to 5 Years) and At-Risk Patients (6 to 64 Years) (3 - PCV) Pneumococcal Vaccine: Pediatrics (0 to 5 Years) and At-Risk Patients (6 to 64 Years) (3 - PCV) [facility] Start: 05-02-2023 Pneumococcal Vaccine: Pediatrics (0 to 5 Years) and At-Risk Patients (6 to 64 Years) (3 of 3 - PCV) Pneumococcal Vaccine: Pediatrics (0 to 5 Years) and At-Risk Patients (6 to 64 Years) (3 of 3 - PCV) [facility] Start: 05-01-2023 End: 05-01-2024 Comprehensive metabolic 1998 panel - Serum or Plasma Comprehensive metabolic panel Lab Routine Annual physical exam Expected: 05/01/2023 (Approximate), Expires: 05/01/2024 [facility] Comment on above: Expected: 05/01/2023 (Approximate), Expi res: 05/01/2024 Start: 05-01-2023 End: 05-01-2024 Hepatitis C virus Ab [Presence] in Serum or Plasma by Immunoassay Hepatitis C antibody Lab Routine Need for hepatitis C screening test Expected: 05/01/2023 (Approximate), Expires: 05/01/2024 [facility] Comment on above: Expected: 05/01/2023 (Approximate), Expi res: 05/01/2024 Start: 05-01-2023 End: 05-01-2024 HIV 1+2 Ab+HIV1 p24 Ag [Presence] in Serum or Plasma by Immunoassay HIV-1 and HIV-2 Antigen-Antibody Screen Lab Routine Screening for HIV (human immunodeficiency virus) Expected: 05/01/2023 (Approximate), Expires: 05/01/2024 [facility] Comment on above: Expected: 05/01/2023 (Approximate), Expi res: 05/01/2024 Start: 05-01-2023 End: 05-01-2024 Lipid 1996 panel - Serum or Plasma Lipid panel Lab Routine Annual physical exam Screening for lipid disorders Expected: 05/01/2023 (Approximate), Expires: 05/01/2024 [facility] Work Phone: Comment on above: Expected: 05/01/2023 (Approximate), Expi res: 05/01/2024 Start: 05-01-2023 End: 05-01-2023 Patient encounter procedure 05/01/2023 9:20 AM EDT Office Visit [facility] [address] [place] [address] Mare Robb APRN - AUTOMATION [employer] [address] [place], [place] [id number] [facility] Start: 04-30-2023 End: 04-30-2023 Patient encounter procedure 04/30/2023 1:30 PM EDT Office Visit [facility] [address] [place] [address] [place] [id number] Edwina Delaney PA-C [address] [place] [address] [place] [address] [facility] Start: 04-19-2023 [facility] Start: 02-28-2023 Influenza vaccination [facility] Start: 10-25-2022 End: 10-25-2022 Patient encounter procedure 10/25/2022 Office Visit Family Medicine Mare Robb, [employer] WORK[employer] - [employer]OMATION [employer] TE[employer] [address] [place], [place] [id number] [facility] Start: 06-30-2022 DEPRESSION ASSESSMENT DEPRESSION ASSESSMENT [facility] Start: 05-20-2022 Meningococcal (ACWY) vaccine (3 - Risk start 2-23 months series) [facility] Start: 02-28-2022 Influenza vaccination INFLUENZA (#1) [facility] Start: 06-30-2021 DEPRESSION ASSESSMENT DEPRESSION ASSESSMENT [facility] Start: 02-28-2021 Influenza vaccination Flu vaccine (#1) [facility] Start: 05-20-2018 Pneumococcal 0-64 years Vaccine (3 of 4 - PCV13) Pneumococcal 0-64 years Vaccine (3 of 4 - PCV13) [facility] Start: 07-15-2017 Hepatitis B Vaccine (3 of 3 - 3-dose series) Hepatitis B Vaccine (3 of 3 - 3-dose series) [facility] Start: 07-15-2017 Hepatitis B Vaccines (3 of 3 - 3-dose series) Hepatitis B Vaccines (3 of 3 - 3-dose series) [facility] Start: 07-15-2017 Hepatitis B Vaccines (4 of 4 - 4-dose series) Hepatitis B Vaccines (4 of 4 - 4-dose series) [facility] Start: 07-15-2017 Meningococcal Vaccine (2 - Risk 2-dose series) Meningococcal Vaccine (2 - Risk 2-dose series) [facility] Start: 2008 Urine microalbumin profile DTAP,TDAP,TD (1 - Tdap) [facility] Start: 2008 Zoster Vaccines (1 of 2) Zoster Vaccines (1 of 2) [facility] Start: 2007 HEPATITIS C SCREENING HEPATITIS C SCREENING [facility] Start: 2007 Hepatitis C screening Hepatitis C Screening [facility] Start: 2007 HIV SCREENING HIV SCREENING [facility] Start: 2007 HIV screening HIV Screening [facility] Start: 2004 HIV screening HIV screen [facility] Start: 2002 Varicella vaccination Varicella Vaccines (1 of 2 - 13+ 2-dose series) [facility] Start: 03-17-2002 Varicella vaccination Varicella Vaccines (1 of 2 - 2-dose childhood series) [facility] Start: 2001 Adult depression screening assessment DEPRESSION SCREENING [facility] Start: 2001 COVID-19 Vaccine (1) COVID-19 Vaccine (1) [facility] Start: 2000 DTaP/Tdap/Td vaccine (6 - Tdap) DTaP/Tdap/Td vaccine (6 - Tdap) [facility] Start: 2000 DTaP/Tdap/Td Vaccines (6 - Tdap) DTaP/Tdap/Td Vaccines (6 - Tdap) [facility] Start: 2000 Urine microalbumin profile DTaP,Tdap,Td Vaccine (6 - Tdap) [facility] Start: 1999 Meningococcal B vaccine (1 of 4 - Increased Risk Bexsero 2-dose series) Meningococcal B vaccine (1 of 4 - Increased Risk Bexsero 2-dose series) [facility] Start: 1999 Meningococcal B Vaccine (1 of 4 - Increased Risk) Meningococcal B Vaccine (1 of 4 - Increased Risk) [facility] Start: 1995 PNEUMOCOCCAL (1 - PCV) PNEUMOCOCCAL (1 - PCV) [facility] Start: 09-11-1990 Hib vaccine (1 of 1 - Risk 1-dose series) Hib vaccine (1 of 1 - Risk 1-dose series) [facility] Start: 09-11-1990 HIB Vaccines (1 of 1 - Risk 1-dose series) HIB Vaccines (1 of 1 - Risk 1-dose series) [facility] Start: 1989 COVID-19 VACCINE (#1) COVID-19 VACCINE (#1) [facility] Start: 1989 HEPATITIS B (1 of 3 - 3-dose series) HEPATITIS B (1 of 3 - 3-dose series) [facility] Start: 1989 Hepatitis C screening Hepatitis C screen [facility] Start: 1989 HIV screening HIV Screening [facility] Patient Education [facility] Work Phone: Patient referral [facility] Work Phone: Tissue exam [facility] Work Phone: Comment on above: Release Upon Ordering for 1 Occurrences starting 05/20/2023 Immunizations Immunization Date Immunization Notes Care Provider Beck melendez 05-02-2022 pneumococcal polysaccharide vaccine, 23 valent Malena Polanco RN [facility] 04-12-2019 influenza, injectabl e, quadrivalent, preservative free Chetna Coburn [employer] - [employer] Work Phone: [facility] Work Phone: 04-12-2019 influenza virus vacc ine, unspecified formulation Malena Polanco RN [facility] 05-20-2017 hepatitis B vaccine, adult dosage [facility] Work Phone: [facility] Work Phone: 05-20-2017 influenza virus vacc ine, unspecified formulation [facility] Work Phone: [facility] Work Phone: 05-20-2017 influenza, injectabl e, quadrivalent, contains preservative Malena Polanco RN [facility] 05-20-2017 Influenza, Quadv, 6 mo and older, IM (Fluzone, Flulaval) [facility] Work Phone: [facility] 05-20-2017 meningococcal oligosaccharide (groups A, C, Y and W-135) diphtheria toxoid conjugate vaccine (MCV4O) [facility] Work Phone: [facility] Work Phone: 05-20-2017 pneumococcal polysaccharide vaccine, 23 valent [facility] Work Phone: [facility] Work Phone: 05-20-2017 meningococcal vaccin e of unknown formulation and unknown serogroups [facility] Work Phone: [facility] Work Phone: 05-20-2016 hepatitis B vaccine, unspecified formulation [facility] Work Phone: [facility] Work Phone: 05-20-2016 meningococcal polysaccharide (groups A, C, Y and W-135) diphtheria toxoid conjugate vaccine (MCV4P) [facility] Work Phone: [facility] Work Phone: 05-20-2016 pneumococcal polysaccharide vaccine, 23 valent [facility] Work Phone: [facility] 05-31-2015 meningococcal polysaccharide (groups A, C, Y and W-135) diphtheria toxoid conjugate vaccine (MCV4P) Chetna Coburn [facility] Work Phone: [facility] Work Phone: 05-31-2015 pneumococcal polysaccharide vaccine, 23 valent Chetna Coburn [facility] Work Phone: [facility] Work Phone: 05-28-2015 influenza, injectabl e, quadrivalent, preservative free [facility] Work Phone: [facility] Work Phone: 02-17-2002 measles, mumps and rubella virus vaccine [facility] Work Phone: [facility] Work Phone: 02-18-1995 diphtheria, tetanus toxoids and acellular pertussis vaccine, unspecified formulation [facility] Work Phone: [facility] Work Phone: 02-18-1995 trivalent poliovirus vaccine, live, oral [facility] Work Phone: [facility] Work Phone: 12-21-1990 diphtheria, tetanus toxoids and pertussis vaccine Chetna Huffmaner [employer]IL[employer] 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 Work Phone: [facility] Work Phone: 12-21-1990 measles, mumps and rubella virus vaccine [facility] Work Phone: [facility] Work Phone: 12-21-1990 trivalent poliovirus vaccine, live, [facility] Work Phone: 07-09-1990 haemophilus influenz ae type b vaccine, conjugate unspecified formulation [facility] Work Phone: [facility] Work Phone: 07-09-1990 hepatitis B vaccine, pediatric or pediatric/adolescent dosage Chetna Coburn [employer] - [employer] Work Phone: [facility] Work Phone: 03-03-1990 diphtheria, tetanus toxoids and pertussis vaccine Chetna Huffmaner [employer] - [employer] Work Phone: [facility] Work Phone: 1989 diphtheria, tetanus toxoids and pertussis vaccine Chetna Huffmaner [employer] - [employer] Work Phone: [facility] Work Phone: 1989 trivalent poliovirus vaccine, live, oral Chetna Coburn [employer] - [employer] Work Phone: [facility] Work Phone: 1989 diphtheria, tetanus toxoids and pertussis vaccine Chetna Huffmaner [employer] WORK[employer] - [employer] Work Phone: [facility] Work Phone: 1989 trivalent poliovirus vaccine, live, oral Chetna Coburn [employer] - [employer] Work Phone: [facility] Work Phone: Payers Date Payer Category Payer Self-pay [id number] 2023 Commercial [facility] [id number] 2023 Unknown [id number] 2023 Unknown [id number] 2022 Medicaid [id number] 2020 Medicaid [id number] 2018 Unknown [employer] [id number] 2018-Present [phone] [address] [place] [address] [id number] Unknown [id number] Unknown [id number] Unknown [id number] Unknown [id number] Unknown [id number] Unknown [id number] Unknown [id number] Unknown [id number] Unknown [id number] Social History Date Type Detail Facility Start: 06-05-2015 End: 02-13-2025 Tobacco smoking status [facility] Ex-smoker [facility] Phone: End: 05-19-2015 History of tobacco use Current smoker [facility] Phone: Start: 06-05-2015 End: 05-02-2022 Tobacco use and exposure Smokeless tobacco non-user [facility] Phone: Start: 10-18-2019 End: 04-30-2023 Alcohol intake Current non-drinker of alcohol (finding) [facility] Work Phone: Start: 10-18-2019 End: 05-01-2023 Alcohol intake [facility] Work Phone: Start: 1990 Sex Assigned At Not on file [facility] [employer] Work Phone: Start: 01-19-2022 End: 04-19-2023 Tobacco smoking status [facility] Unknown if [facility] Start: 06-18-2021 Occasional [facility] Start: 06-18-2021 None [facility] Start: 06-18-2021 Cigarettes [facility] Start: 1990 Sex Assigned At Male [facility] Start: 01-29-2012 Tobacco smoking stat us MEIS Smokes tobacco daily [facility] Start: 02-05-2022 End: 08-13-2023 Alcohol intake Not Asked [facility] End: 05-19-2015 History of tobacco use Cigarette Smoker [facility] Start: 06-18-2022 End: 05-01-2023 Tobacco use panel [facility] Start: 05-01-2022 Gender identity Identifies as male gender (finding) [facility] Start: 05-01-2022 Sexual orientation Heterosexual (juan huff) [facility] Start: 05-01-2023 End: 08-04-2024 Alcohol intake Ex-drinker (finding) [facility] How often to you hav e a drink containing alcohol? Never [facility] How many standard drinks containing alcohol do you have on a typical day? Patient does not drink [facility] (I/We) worried artemio er (my/our) food would run out before (I/we) got money to buy more. Never true [facility] In the past 12 month s, was there a time when you were not able to pay the mortgage or rent on time? No [facility] Start: 05-01-2023 Alcohol Comment Use to drink [facility] How often to you hav e a drink containing alcohol? 4 or more times a week [facility] How many standard drinks containing alcohol do you have on a typical day? 1 or 2 [facility] Start: 01-28-2022 Sex Male (finding) [facility] Goals Date Patient Goal Desired Activity /State Functional Status Date Assessment Result Facility 02-16-2025 Functional status Ambulates;Up ad ludy [facility] Work Phone: Mental Status Date Assessment Result Facility 02-15-2025 Cognitive function Voice/Name [facility] Work Phone: Clinical Notes 02-05-2022 to 02-16-2025 Note Date & Type Note Facility 02-16-2025 Discharge summary Note Date/Time February 16, 2025 12:15pm [facility] Medical Records Department [address] [place] [address] Instructions for Home/Discharge Instructions 02/16/25 1059 MR#: [id number] Acct: [id number] Name: ANNAMARIE LARIOS Rep #:[id number] : 1990 34 From: Angela Chau MD PCP: Dr. Nikita Sorensen MD Status:ADM IN Discharge Instructions DC O2, CPAP, BIPAP needs Home O2 Discharge instructions: No Dressing / Incision Discharge Activity: Return to Normal Activity Weight Bearing Status: Weight bearing as tolerated Dressing / Incision Call your doctor if you observe: Fever of 101 or Higher, Shortness of breath andIncreased palpitations (irregular heartbeat) Follow Up Care Test Results: Test results from this visit will be discussed in further detail at your follow-up appointment, if applicable. Discharge Plan Admission Admit Date/Time: 02/13/25 18:49 Primary Reason for Your Visit: acute alcohol withdrawal Attending Provider: Angela Chau Primary Care Provider: Nikita Sorensen Consulting Providers: Xochilt De Jesus Instructions Patient Instructions: Alcohol Withdrawal: What to Expect Additional Instructions / Restrictions: follow up with ophthalmology within one week to evaluate right subconjuctival hemorrhage Discharge Orders/Prescriptions Prescriptions: New metoprolol tartrate 25 mg Tablet 12.5 mg PO BID Qty: 30 2RF Continued fluoxetine 20 mg capsule 20 mg PO DAILY olanzapine 20 mg tablet 20 mg PO QHS Referrals / Follow Up: Nikita Sorensen MD [Primary Care Provider] - In 1 Week Disposition Disposition (needs filled in before D/C Order can be placed): Home, Self Care 02/16/25 1059<Electronically signed by Angela Chau MD>Angela Chau MD CC: Dr. Nikita Sorensen MD; Dr. Xochilt De Jesus MD ~ Signed [facility] Work Phone: 1(101) 937-532308-20-2025 Discharge summary [facility] Records Department [address] [place] [address] Instructions for Home/Discharge Instructions 02/16/25 1059 MR#: [id number] Acct: [id number] Name: ANNAMARIE LARIOS Rep #:[id number] : 1990 34 From: Angela Chau MD PCP: Dr. Nikita Sorensen MD Status:ADM IN Discharge Instructions DC O2, CPAP, BIPAP needs Home O2 Discharge instructions: No Dressing / Incision Discharge Activity: Return to Normal Activity Weight Bearing Status: Weight bearing as tolerated Dressing / Incision Call your doctor if you observe: Fever of 101 or Higher, Shortness of breath andIncreased palpitations (irregular heartbeat) Follow Up Care Test Results: Test results from this visit will be discussed in further detail at your follow- up appointment, if applicable. Discharge Plan Admission Admit Date/Time: 02/13/25 18:49 Primary Reason for Your Visit: acute alcohol withdrawal Attending Provider: Angela Chau Primary Care Provider: Nikita Sorensen Consulting Providers: Xochilt De Jesus Instructions Patient Instructions: Alcohol Withdrawal: What to Expect Additional Instructions / Restrictions: follow up with ophthalmology within one week to evaluate right subconjuctival hemorrhage Discharge Orders/Prescriptions Prescriptions: New metoprolol tartrate 25 mg Tablet 12.5 mg PO BID Qty: 30 2RF Continued fluoxetine 20 mg capsule 20 mg PO DAILY olanzapine 20 mg tablet 20 mg PO QHS Referrals / Follow Up: Nikita Sorensen MD [Primary Care Provider] - In 1 Week Disposition Disposition (needs filled in before D/C Order can be placed): Home, Self Care 02/16/25 1059Angela Chau MD CC: Dr. Nikita Sorensen MD; Dr. Xochilt De Jesus MD ~ Signed [facility]08-20-2025 [facility] Medical Records Department [address] [place] [address] Discharge Summary 02/16/25 1059 MR#: [id number] Acct: [id number] Name: ANNAMARIE LARIOS Rep #: [id number] : 1990 34 From: Angela Chau MD PCP: Dr. Nikita Sorensen MD Status:DIS IN Location: [facility] [id number] Providers Date of Admission: 02/13/25 Date of Discharge: 02/16/25 Primary Care Physician: Dr. Nikita Sorensen MD Reason For Visit: ALCOHOL DETOX Diagnosis Discharge Diagnosis (1) Subconjunctival hemorrhage of right eye: Status: Acute Code(s): H11.31 - Conjunctival hemorrhage, right eye (2) Alcohol withdrawal: Status: Acute Code(s): F10.939 - Alcohol use, unspecified with withdrawal, unspecified Plan #Acute alcohol withdrawal * In alcohol withdrawal protocol with phenobarbital. * On thiamine, folic acid and Multi-Papi. Adjunctive meds for symptomatic relief. * Monitor CIWA score * #Sinus Tachycardia: * Patient appears to be in sinus tachycardia with heart rate ranging from 10 2-1 20s. * Looking back into 2020 patient has similar tachycardia. * Check TSH and 2D echo * check D [id number] was elevated at over 2. CTA of the chest was therefore done which showed no evidence of PE and showed no acute cardiopulmonary pathology but showed prominence diffuse hepatic steatosis. * TSH showed 3.37. 2D echo pending. * patient started on PO metoprolol 12.5mg bid. * #Left subconjuctival hemorrhage * has left subconjuctival hemorrhage. He apparently wears contacts which he has not taken off for a long while. I advised him that it would be advisable to take out his contacts periodically, but he said he cannot see without the contacts so he would not take them out * will need follow up with ophthalmology on outpatient basis. * #Probable fatty liver disease: * CT showed hepatic steatosis. Liver enzymes also elevated at 168/145 though these are trending down. * This likely due to alcoholic liver disease. * Counseled to quit alcohol. * Follow-up with gastroenterology on outpatient basis. * #Depression: on olanzapine and fluoxetine. DVT prophylaxis: low risk, encourage ambulation Disposition: anticipat dc tomorrow. Medications at Discharge Home Medications fluoxetine 20 mg capsule 20 mg PO DAILY 02/13/25 olanzapine 20 mg tablet 20 mg PO QHS 02/13/25 metoprolol tartrate 25 mg tablet 12.5 mg (1/2 x 25 mg) PO BID #30 tabs 02/16/25 Hospital Course Operations None Procedures 2-D Echocardiogram Summary of Care Provided Minutes Spent on Discharge: 45 Hospital Course: Patient is a 34-year-old male with past medical history as outlined including history of alcohol use disorder and depression was admitted with a complaint of right eye redness. Patient will contacts and said he had not taken other contacts in the long while because he could not see very well without the contacts. When he came into the ED family also reports that he thought he was depressed. He was tachycardic and his blood pressure was elevated at 175/106. Labs showed WBC of 12.5 with hemoglobin of 16.2 and anion gap of 24 though bicarb was normal. Creatinine was 0.98. AST and ALT were elevated. Urine tox was positive for cannabinoids and alcohol level was 321. Patient admitted with significant history of alcohol use recently. He said his grandmother recently and is also lost his job a month ago and had been drinking heavily since then. He has not been eating food or drinking water and had just been drinking alcohol. He was admitted and managed for alcohol use disorder with potential for acute alcohol withdrawal. He was started on alcohol withdrawal protocol with phenobarbital. He was counseled to follow-up with ophthalmology on outpatient basis on account of the subconjunctival hemorrhage. Additionally, patient was noted to be tachycardic during this admission. TSH was normal and 2D echo was also normal. CT of the chest done on account of elevated D-dimer was negative for any evidence of PE. He was therefore started on p.o. metoprolol 12.5 mg twice daily. His heart rate did improve. He remained stable and was discharged home on 02/16/2025 after he completed the detox protocol. He is follow-up with his primary care doctor within 1 to 2 weeks. He is also to follow up with ophthalmology on outpatient basis for the subconjunctival hemorrhage and the contact lenses that he had been wearing for months without removing. Patient seen and examined prior to discharge. He had no active complaints and had an uneventful night. Review of systems was otherwise negative. Labs and vitals reviewed. Home meds reviewed and reconciled. Physical Exam Const alert, oriented x3 and no apparent distress General Appearance: cooperative and comfortable Exam Limitations: no limitations HEENT normocephalic, head/scalp atraumatic, hearing grossly normal (more content not included)...[facility]08-19-2025 Progress note Author Angela Chau [facility] Note Date/Time February 15, 2025 3: 31pm [facility] Medical Records Department [address] [place] [address] Progress Note 02/15/25 1205 MR#: [id number] Acct: [id number] Name: ANNAMARIE LARIOS Rep #:[id number] : 1990 34 From: Angela Chau MD PCP: Dr. Nikita Sorensen MD Status:ADM IN [facility] Subjective Patient seen and examined with his by his bedside. He had no active complaints today. Review of systems is otherwise negative. Objective Data Objective Data Vital Signs: Vital Signs Temp Pulse Resp BP Pulse Ox O2 Del Method 98.5 F 92 18 153/95 H 97 Room Air 02/15/25 07:50 02/15/25 08:11 02/15/25 07:50 02/15/25 07:50 02/15/25 07:50 02/15/25 07:57 Oxygen Delivery Method Room Air Weight: 194 lb 14.218 oz Body Mass Index (BMI) 28.8 Intake & Output: Intake and Output for Last 24 Hours 02/13/25 02/14/25 02/15/25 23:59 23:59 23:59 Intake Total 1999 / 2300 580 / 580 Balance 1999 2300 580 / 580 Lab / Micro Data 02/14/25 04:57 02/14/25 04:57 Labs: Laboratory Results - last 24 hr 02/14/25 04:57: TSH 3.370 02/14/25 14:25: D-Dimer Quant (PE/DVT) 2.65 H* Radiography Diagnostic Testing: Radiology Impression Echocardiogram 02/14/25 13:40 Interpretation Summary Increased LV wall thickness Left ventricular systolic function is hyperdynamic. No regional wall motion abnormalities noted. No vegetations identified. There is no vegetation seen on the mitral valve. The mitral valve is structurally normal. No prolapse or stenosis seen. Ordering Physician: Angela Chau Performed By: Brad Felix, DORA Chest CTA 02/14/25 15:18 IMPRESSION: 1. No acute intrathoracic pathology. No pulmonary arterial emboli. 2. Prominent diffuse hepatic steatosis. Reading Location: [facility] Physical Exam Const alert, oriented x3 and no apparent distress General Appearance: cooperative HEENT normocephalic, head/scalp atraumatic, moist oral mucous membranes and oropharynxnormal Eyes EOMs intact bilaterally Eyes Narrative: has significant subconjuctival hemorrhage of right eye. Neck supple Lymph Lymphatic: no lymphedema noted Resp normal respiratory effort, normal air movement and clear to auscultation bilaterally Cardio regular rhythm, S1 normal heart sound, S2 normal heart sound and no murmurs Cardio Narrative: tachycardic GI normal to inspection, nondistended, normoactive bowel sounds, soft to palpation,non-tender and non-distended Extremity normal capillary refill, no clubbing, cyanosis or edema and no calf tenderness General Extremity: no tenderness to palpation of joints or extremities Skin General Skin Exam: no breakdown Neuro CN's II-XII intact bilaterally, no focal motor deficits and no sensory deficits noted Motor Exam: strength 5/5 throughout Psych thought process normal and cooperative Appearance: appropriate Assessment & Plan Assessment/Plan (1) Subconjunctival hemorrhage of right eye: (2) Alcohol withdrawal: PLAN: Plan #Acute alcohol withdrawal * In alcohol withdrawal protocol with phenobarbital. * On thiamine, folic acid and Multi-Papi. Adjunctive meds for symptomatic relief.\ * Monitor CIWA score * #Sinus Tachycardia: * Patient appears to be in sinus tachycardia with heart rate ranging from 10 2-1 20s. * Looking back into 2020 patient has similar tachycardia. * Check TSH and 2D echo * check D eimzj-J-vnrbn was elevated at over 2. CTA of the chest was therefore done which showed no evidence of PE and showed no acute cardiopulmonary pathology but showed prominence diffuse hepatic steatosis. * TSH showed 3.37. 2D echo pending. * patient started on PO metoprolol 12.5mg bid. * #Left subconjuctival hemorrhage * has left subconjuctival hemorrhage. He apparently wears contacts which he has not taken off for a long while. I advised him that it would be advisable to take out his contacts periodically, but he said he cannot see without the contacts so he would not take them out * will need follow up with ophthalmology on outpatient basis. * #Probable fatty liver disease: * CT showed hepatic steatosis. Liver enzymes also elevated at 168/145 though these are trending down. * This likely due to alcoholic liver disease. * Counseled to quit alcohol. * Follow-up with gastroenterology on outpatient basis. * #Depression: on olanzapine and fluoxetine. DVT prophylaxis: low risk, encourage ambulation Disposition: anticipat dc tomorrow. Charges/Coding Visit Charges Inpatient E&M: 13087 Subs Hosp L2 02/15/25 1531 <Electronically signed by Angela Chau MD> Angela Chau MD Cosigner Signature (if applicable): CC: ~ Signed [facility] Work Phone: [phone]) 213-850308-19-2025 Progress note [facility] Medical Records Department [address] [place] [address] Progress Note 02/15/25 1205 MR#: [id number] Acct: [id number] Name: ANNAMARIE LARIOS Rep #:[id number] : 1990 34 From: Angela Chau MD PCP: Dr. Nikita Sorensen MD Status:ADM IN Location: [facility] IX982-3 Subjective Subjective Patient seen and examined with his by his bedside. He had no active complaints today. Review of systems is otherwise negative. Objective Data Objective Data Vital Signs: Vital Signs Temp Pulse Resp BP Pulse Ox O2 Del Method 98.5 F 92 18 153/95 H 97 Room Air 02/15/25 07:50 02/15/25 08:11 02/15/25 07:50 02/15/25 07:50 02/15/25 07:50 02/15/25 07:57 Oxygen Delivery Method Room Air Weight: 194 lb 14.218 oz Body Mass Index (BMI) 28.8 Intake & Output: Intake and Output for Last 24 Hours 02/13/25 02/14/25 02/15/25 23:59 23:59 23:59 Intake Total 1999 / 2300 580 / 580 Balance 1999 / 2300 580 / 580 Lab / Micro Data 02/14/25 04:57 02/14/25 04:57 Labs: Laboratory Results - last 24 hr 02/14/25 04:57: TSH 3.370 02/14/25 14:25: D-Dimer Quant (PE/DVT) 2.65 H* Radiography Diagnostic Testing: Radiology Impression Echocardiogram 02/14/25 13:40 Interpretation Summary Increased LV wall thickness Left ventricular systolic function is hyperdynamic. No regional wall motion abnormalities noted. No vegetations identified. There is no vegetation seen on the mitral valve. The mitral valve is structurally normal. No prolapse or stenosis seen. Ordering Physician: Angela Chau Performed By: Brad Felix, [facility] Chest CTA 02/14/25 15:18 IMPRESSION: 1. No acute intrathoracic pathology. No pulmonary arterial emboli. 2. Prominent diffuse hepatic steatosis. Reading Location: [facility] Physical Exam Const alert, oriented x3 and no apparent distress General Appearance: cooperative HEENT normocephalic, head/scalp atraumatic, moist oral mucous membranes and oropharynxnormal Eyes EOMs intact bilaterally Eyes Narrative: has significant subconjuctival hemorrhage of right eye. Neck supple Lymph Lymphatic: no lymphedema noted Resp normal respiratory effort, normal air movement and clear to auscultation bilaterally Cardio regular rhythm, S1 normal heart sound, S2 normal heart sound and no murmurs Cardio Narrative: tachycardic GI normal to inspection, nondistended, normoactive bowel sounds, soft to palpation,non-tender and non-distended Extremity normal capillary refill, no clubbing, cyanosis or edema and no calf tenderness General Extremity: no tenderness to palpation of joints or extremities Skin General Skin Exam: no breakdown Neuro CN's II-XII intact bilaterally, no focal motor deficits and no sensory deficits noted Motor Exam: strength 5/5 throughout Psych thought process normal and cooperative Appearance: appropriate Assessment & Plan Assessment/Plan (1) Subconjunctival hemorrhage of right eye: (2) Alcohol withdrawal: PLAN: Plan #Acute alcohol withdrawal * In alcohol withdrawal protocol with phenobarbital. * On thiamine, folic acid and Multi-Papi. Adjunctive meds for symptomatic relief.\ * Monitor CIWA score * #Sinus Tachycardia: * Patient appears to be in sinus tachycardia with heart rate ranging from 10 2-1 20s. * Looking back into 2020 patient has similar tachycardia. * Check TSH and 2D echo * check D unqhp-H-wjfbq was elevated at over 2. CTA of the chest was therefore done which showed noevidence of PE and showed no acute cardiopulmonary pathology but showed prominence diffuse hepatic steatosis. * TSH showed 3.37. 2D echo pending. * patient started on PO metoprolol 12.5mg bid. * #Left subconjuctival hemorrhage * has left subconjuctival hemorrhage. He apparently wears contacts which he has not taken off for along while. I advised him that it would be advisable to take out his contacts periodically, but he said he cannot see without the contacts so he would not take them out * will need follow up with ophthalmology on outpatient basis. * #Probable fatty liver disease: * CT showed hepatic steatosis. Liver enzymes also elevated at 168/145 though these are trending down. * This likely due to alcoholic liver disease. * Counseled to quit alcohol. * Follow-up with gastroenterology on outpatient basis. * #Depression: on olanzapine and fluoxetine. DVT prophylaxis: low risk, encourage ambulation Disposition: anticipat dc tomorrow. Charges/Coding Visit Charges Inpatient E&M: 82332 Subs Hosp L2 02/15/25 1535 Angela Chau MD Cosigner Signature (if applicable): CC: ~ Signed [facility]08-18-2025 Progress note Author Angela Chau [facility] Note Date/Time February 14, 2025 4: 42pm [facility] Medical Records Department [address] [place] [address] Progress Note 02/14/25 1128 MR#: [id number] Acct: [id number] Name: ANNAMARIE LARIOS Rep #:[id number] : 1990 34 From: Angela Chau MD PCP: Dr. Nikita Sorensen MD Status:ADM IN [facility] Subjective Subjective Patient seen and examined. He had no complaints. He denied any shakes or tremors. Review of systems is otherwise negative. HR is elevated at 120. Objective Data Objective Data Vital Signs: Vital Signs Temp Pulse Resp BP Pulse Ox O2 Del Method 97.8 F 98 18 144/88 H 97 Room Air 02/14/25 07:49 02/14/25 07:49 02/14/25 07:49 02/14/25 07:49 02/14/25 07:49 02/14/25 07:55 Oxygen Delivery Method Room Air Weight: 194 lb 14.218 oz Body Mass Index (BMI) 28.8 Intake & Output: Intake and Output for Last 24 Hours 02/12/25 02/13/25 02/14/25 23:59 23:59 23:59 Intake Total 1999 / 2300 580 / 580 Balance 1999 / 2300 580 / 580 Lab / Micro Data 02/14/25 04:57 02/14/25 04:57 Labs: Laboratory Results - last 24 hr 02/13/25 15:17: WBC 12.5 H, RBC 5.53, Hgb 16.2, Hct 46.6, MCV 84.3, MCH 29.3, MCHC 34.8, RDW Std Deviation 46.5 H, RDW Coeff of Rhianna 15.1 H, Plt Count 354, MPV10.1, Immature Gran % (Auto) 0.400, Neut % (Auto) 66.7, Lymph % (Auto) 22.1, [place] % (Auto) 9.5, Eos % (Auto) 0.1, Baso % (Auto) 1.2 H, Absolute Neuts (auto) 8.4 H, Absolute Lymphs (auto) 2.77, Nucleated RBC % 0, Sodium 137, Potassium 3.7, Chloride 92 L, Carbon Dioxide 21.8, Anion Gap 24 H, BUN 12, Creatinine 0.98, Estim Creat Clear Calc 115.98, Est GFR (MDRD) Non-Af 103, BUN/Creatinine Ratio 12.4, Glucose 92, Calcium 8.8, Total Bilirubin 0.61, AST 227 H, ALT 188 H,Alkaline Phosphatase 91, Total Protein 7.9, Albumin 4.4, Globulin 3.5, Albumin/Globulin Ratio 1.3, Ethyl Alcohol 321.0 H* 02/13/25 16:55: Urine Opiates Screen NEGATIVE, U Buprenorphine Qual NEGATIVE, UrOxycodone Screen NEGATIVE, Urine Methadone Screen NEGATIVE, Urine Fentanyl Screen NEGATIVE, Ur Barbiturates Screen NEGATIVE, Ur Phencyclidine Scrn NEGATIVE, Ur Amphetamines Screen NEGATIVE, U Benzodiazepines Scrn NEGATIVE, Urine Cocaine Screen NEGATIVE, U Cannabinoids Screen PRESUMPTIVE POSITIVE 02/14/25 04:57: WBC 12.9 H, RBC 5.10, Hgb 14.8, Hct 43.7, MCV 85.7, MCH 29.0, MCHC 33.9, RDW Std Deviation 48.2 H, RDW Coeff of Rhianna 15.3 H, Plt Count 309, MPV10.8, Immature Gran % (Auto) 0.500, Neut % (Auto) 65.2, Lymph % (Auto) 22.1, [place] % (Auto) 9.2, Eos % (Auto) 2.1, Baso % (Auto) 0.9, Absolute Neuts (auto) 8.4 H, Absolute Lymphs (auto) 2.85, Nucleated RBC % 0, Sodium 139, Potassium 3.6, Chloride 98, Carbon Dioxide 26.4, Anion Gap 15, BUN 9, Creatinine 0.91, Estim Creat Clear Calc 124.65, Est GFR (MDRD) Non-Af 112, BUN/Creatinine Ratio 9.8 L, Glucose 80, Calcium 8.3, Total Bilirubin 0.88, AST 168 H, ALT 145 H, Alkaline Phosphatase 70, Total Protein 6.5, Albumin 3.8, Globulin 2.7, Albumin/Globulin Ratio 1.4 Physical Exam Const alert and no apparent distress General Appearance: cooperative HEENT normocephalic, head/scalp atraumatic, moist oral mucous membranes and oropharynxnormal Eyes EOMs intact bilaterally Eyes Narrative: has significant subconjuctival hemorrhage of right eye. Neck supple Lymph Lymphatic: no lymphedema noted Resp normal respiratory effort, normal air movement and clear to auscultation bilaterally Cardio regular rhythm, S1 normal heart sound, S2 normal heart sound and no murmurs Cardio Narrative: tachycardic GI normal to inspection, nondistended, normoactive bowel sounds, soft to palpation,non-tender and non-distended Extremity normal capillary refill, no clubbing, cyanosis or edema and no calf tenderness General Extremity: no tenderness to palpation of joints or extremities Skin General Skin Exam: no breakdown Neuro CN's II-XII intact bilaterally, no focal motor deficits and no sensory deficits noted Motor Exam: strength 5/5 throughout Psych thought process normal and cooperative Appearance: appropriate Assessment & Plan Assessment/Plan (1) Subconjunctival hemorrhage of right eye: (2) Alcohol withdrawal: PLAN: Plan #Acute alcohol withdrawal * In alcohol withdrawal protocol with phenobarbital. * On thiamine, folic acid and Multi-Papi. Adjunctive meds for symptomatic relief.\ * Monitor CIWA score * #Sinus Tachycardia: * Patient appears to be in sinus tachycardia with heart rate ranging from 10 2-1 20s. * Looking back into 2020 patient has similar tachycardia. * Check TSH and 2D echo * check D pwevs-G-kamge was elevated at over 2. CTA of the chest was therefore done which showed no evidence of PE and showed no acute cardiopulmonary pathology but showed prominence diffuse hepatic steatosis. * TSH showed 3.37. 2D echo pending. Will start patient on p.o. metoprolol. * #Left subconjuctival hemorrhage * has left subconjuctival hemorrhage. He apparently wears contacts which he has not taken off for a long while. I advised him that it would be advisable to take out his contacts periodically, but he said he cannot see without the contacts so he would not take them out * will need follow up with ophthalmology on outpatient basis. * #Probable fatty liver disease: * CT showed hepatic steatosis. Liver enzymes also elevated at 168/145 though these are trending down. * This likely due to alcoholic liver disease. * Counseled to quit alcohol. * Follow-up with gastroenterology on outpatient basis. * #Depression: on olanzapine and fluoxetine. DVT prophylaxis: low risk, encourage ambulation Charges/Coding Visit Charges Inpatient E&M: 11603 Subs Hosp L2 02/14/25 1642 <Electronically signed by Angela Chau MD> Angela Chau MD Cosigner Signature (if applicable): CC: ~ Signed [facility] Work Phone: 1(830) 430-644508-18-2025 Progress note [facility] Medical Records Department [address] [place] [address] Progress Note 02/14/25 1128 MR#: [id number] Acct: [id number] Name: ANNAMARIE LARIOS Rep #:[id number] : 1990 34 From: Angela Chau MD PCP: Dr. Nikita Sorensen MD Status:ADM IN [facility] Subjective Subjective Patient seen and examined. He had no complaints. He denied any shakes or tremors. Review of systemsis otherwise negative. HR is elevated at 120. Objective Data Objective Data Vital Signs: Vital Signs Temp Pulse Resp BP Pulse Ox O2 Del Method 97.8 F 98 18 144/88 H 97 Room Air 02/14/25 07:49 02/14/25 07:49 02/14/25 07:49 02/14/25 07:49 02/14/25 07:49 02/14/25 07:55 Oxygen Delivery Method Room Air Weight: 194 lb 14.218 oz Body Mass Index (BMI) 28.8 Intake & Output: Intake and Output for Last 24 Hours 02/12/25 02/13/25 02/14/25 23:59 23:59 23:59 Intake Total 19990 580 / 580 Balance 1999 580 / 580 Lab / Micro Data 02/14/25 04:57 02/14/25 04:57 Labs: Laboratory Results - last 24 hr 02/13/25 15:17: WBC 12.5 H, RBC 5.53, Hgb 16.2, Hct 46.6, MCV 84.3, MCH 29.3, MCHC 34.8, RDW Std Deviation 46.5 H, RDW Coeff of Rhianna 15.1 H, Plt Count 354, MPV10.1, Immature Gran % (Auto) 0.400, Neut % (Auto) 66.7, Lymph % (Auto) 22.1, [place] % (Auto) 9.5, Eos % (Auto) 0.1, Baso % (Auto) 1.2 H, Absolute Neuts (auto) 8.4 H, Absolute Lymphs (auto) 2.77, Nucleated RBC % 0, Sodium 137, Potassium 3.7, Chloride 92 L, Carbon Dioxide 21.8, Anion Gap 24 H, BUN 12, Creatinine 0.98, Estim Creat Clear Calc 115.98, Est GFR (MDRD) Non-Af 103, BUN/Creatinine Ratio 12.4, Glucose 92, Calcium 8.8, Total Bilirubin0.61, AST 227 H, ALT 188 H,Alkaline Phosphatase 91, Total Protein 7.9, Albumin 4.4, Globulin 3.5, Al bumin/Globulin Ratio 1.3, Ethyl Alcohol 321.0 H* 02/13/25 16:55: Urine Opiates Screen NEGATIVE, U Buprenorphine Qual NEGATIVE, UrOxycodone Screen NEGATIVE, Urine Methadone Screen NEGATIVE, Urine Fentanyl Screen NEGATIVE, Ur Barbiturates Screen NEGATIVE, Ur Phencyclidine Scrn NEGATIVE, Ur Amphetamines Screen NEGATIVE, U Benzodiazepines Scrn NEGATIVE, Urine Cocaine Screen NEGATIVE, U Cannabinoids Screen PRESUMPTIVE POSITIVE 02/14/25 04:57: WBC 12.9 H, RBC 5.10, Hgb 14.8, Hct 43.7, MCV 85.7, MCH 29.0, MCHC 33.9, RDW Std Deviation 48.2 H, RDW Coeff of Rhianna 15.3 H, Plt Count 309, MPV10.8, Immature Gran % (Auto) 0.500, Neut % (Auto) 65.2, Lymph % (Auto) 22.1, [place] % (Auto) 9.2, Eos % (Auto) 2.1, Baso % (Auto) 0.9, AbsoluteNeuts (auto) 8.4 H, Absolute Lymphs (auto) 2.85, Nucleated RBC % 0, Sodium 139, Potassium 3.6, Chloride 98, Carbon Dioxide 26.4, Anion Gap 15, BUN 9, Creatinine 0.91, Estim Creat Clear Calc 124.65, Est GFR (MDRD) Non-Af 112, BUN/Creatinine Ratio 9.8 L, Glucose 80, Calcium 8.3, Total Bilirubin 0.88,AST 168 H, ALT 145 H, Alkaline Phosphatase 70, Total Protein 6.5, Albumin 3.8, Globulin 2.7, Albumin/Globulin Ratio 1.4 Physical Exam Const alert and no apparent distress General Appearance: cooperative HEENT normocephalic, head/scalp atraumatic, moist oral mucous membranes and oropharynxnormal Eyes EOMs intact bilaterally Eyes Narrative: has significant subconjuctival hemorrhage of right eye. Neck supple Lymph Lymphatic: no lymphedema noted Resp normal respiratory effort, normal air movement and clear to auscultation bilaterally Cardio regular rhythm, S1 normal heart sound, S2 normal heart sound and no murmurs Cardio Narrative: tachycardic GI normal to inspection, nondistended, normoactive bowel sounds, soft to palpation,non-tender and non-distended Extremity normal capillary refill, no clubbing, cyanosis or edema and no calf tenderness General Extremity: no tenderness to palpation of joints or extremities Skin General Skin Exam: no breakdown Neuro CN's II-XII intact bilaterally, no focal motor deficits and no sensory deficits noted Motor Exam: strength 5/5 throughout Psych thought process normal and cooperative Appearance: appropriate Assessment & Plan Assessment/Plan (1) Subconjunctival hemorrhage of right eye: (2) Alcohol withdrawal: PLAN: Plan #Acute alcohol withdrawal * In alcohol withdrawal protocol with phenobarbital. * On thiamine, folic acid and Multi-Papi. Adjunctive meds for symptomatic relief.\ * Monitor CIWA score * #Sinus Tachycardia: * Patient appears to be in sinus tachycardia with heart rate ranging from 10 2-1 20s. * Looking back into 2020 patient has similar tachycardia. * Check TSH and 2D echo * check D samsk-X-gvjqx was elevated at over 2. CTA of the chest was therefore done which showed noevidence of PE and showed no acute cardiopulmonary pathology but showed prominence diffuse hepatic steatosis. * TSH showed 3.37. 2D echo pending. Will start patient on p.o. metoprolol. * #Left subconjuctival hemorrhage * has left subconjuctival hemorrhage. He apparently wears contacts which he has not taken off for along while. I advised him that it would be advisable to take out his contacts periodically, but he said he cannot see without the contacts so he would not take them out * will need follow up with ophthalmology on outpatient basis. * #Probable fatty liver disease: * CT showed hepatic steatosis. Liver enzymes also elevated at 168/145 though these are trending down. * This likely due to alcoholic liver disease. * Counseled to quit alcohol. * Follow-up with gastroenterology on outpatient basis. * #Depression: on olanzapine and fluoxetine. DVT prophylaxis: low risk, encourage ambulation Charges/Coding Visit Charges Inpatient E&M: 38200 Subs Hosp L2 02/14/25 1642 Angela Chau MD Cosigner Signature (if applicable): CC: ~ Signed [facility]08-18-2025 Radiology Diagnostic study note [facility] Imaging Services [address] [place], [place] [address] CTA Chest W/WO Contrast MR#: [id number] Acct: [id number] Name: ANNAMARIE LARIOS Rep #: [id number] 6 : 1990 M 34 From: Dillan Barrett MD PCP: Dr. Nikita Sorensen MD Status: ADM IN Study:CTA Chest W/WO Contrast Date of Exam: 02/14/25 Exam# [id number] Ordering Dr: Alise Chau MD PROCEDURE: CTA CHEST W/WO CONTRAST 02/14/2025 REASON FOR EXAM: ELEVATED D DIMER TECHNIQUE: CTA CHEST W/WO CONTRAST Multiplanar Sagittal and Coronal images were obtained. 3D post processing was performed. CONTRAST: Isovue 370 VOLUME: 100 mL One or more dose reduction techniques were used (e.g., Automated exposure control, adjustment of the mA and/or kV according to patient size, use of iterative reconstruction technique). RADIATION DOSE SUMMARY: DLP: 526.88 mGycm COMPARISON: None. FINDINGS: PULMONARY VESSELS: No filling defects suspicious for pulmonary arterial emboli. Normal caliber mainpulmonary trunk. No evidence for right heart strain. LUNGS/PLEURA: Clear. No airspace consolidation or findings of pulmonary edema. No pneumothorax or pleural effusions. Central airways are patent. Mild bibasilar scattered discoid atelectasis. MEDIASTINUM: Unremarkable. No lymphadenopathy. HEART: Normal in size. No pericardial effusion. No significant coronary arterycalcification. THORACIC AORTA: Normal in course and caliber. No significant atherosclerotic disease. UPPER ABDOMEN: Marked diffuse hepatic steatosis. Otherwise unremarkable. BONES: No significant abnormality. CT/CTA Chest W/WO Contrast IMPRESSION: 1. No acute intrathoracic pathology. No pulmonary arterial emboli. 2. Prominent diffuse hepatic steatosis. Reading Location: [id number] CC: Dr. Nikita Sorensen MD; Dr. Angela Chau MD ~ Cable Installation Technician: Signed [facility]08-18-2025 Discharge summary Author Deep Holman [facility] Note Date/Time February 13, 2025 11 :45pm [facility] Medical Records Department [address] [place] [address] Emergency Department Summary 02/13/25 MR#: [id number] Acct: [id number] Name: ANNAMARIE LARIOS Rep #:[id number] : 1990 34 From: Deep Weiss PCP: Dr. Nikita Sorensen MD Status:ADM IN Location: [place] [address] HPI History of Present Illness Chief Complaint: Eye Problem Informant: patient and parent Onset/Context/Timing Location: Right Eye Onset: Today Context: Sudden Onset Timing: Continuous Worsened by: Nothing Relieved by: Nothing Associated Symptoms Associated Symptoms - Eyes: Redness; Negative for Burning, Crusting, Drainage, Eyelid swelling, Foreign body sensation, Matting or Pain History of injury: No Visual correction: Corrective contact lenses Narrative Narrative: Patient presents with right eye redness that began today. Patient states he woke up with it. Patient denies any trauma or injury. Patient denies any coughing or sneezing. Patient denies any changes in his vision. Patient deniesany foreign body sensation. Patient does wear contact lenses. Patient states nothing makes it better and nothing makes it worse. Patient does not take any anticoagulants. [facility] Medical History (Updated 02/13/25 @ 18:[address] Deep Holman, DO) Depression Anxiety COVID-19 Home Medications ?Medication ?Instructions ?Recorded ?Last Taken ?Type fluoxetine 20 mg capsule 20 mg PO DAILY 02/13/25 Unkn own History olanzapine 20 mg tablet 20 mg PO QHS 02/13/25 Unknow n History Allergy/AdvReac Type Severity Reaction Status Date / Time Cephalosporins Allergy Hives Verified 02/13/25 14:36 Penicillins Allergy Hives Verified 02/13/25 14:36 Surgical History (Updated 02/13/25 @ 15:[address] Deep Holman DO) Hx of tympanostomy tubes History of adenectomy Hx of tonsillectomy Hx of splenectomy Social History Smoking Status: Former smoker substance use type: former substance user ROS ROS ED Constitutional Constitutional ED: Denies chills or fever(s) Eyes Eyes: Denies blurry vision or change in vision ENT ENT ED: Denies rhinorrhea or sore throat Cardiovascular Cardiovascular: Denies chest pain or palpitations Respiratory/Chest Respiratory/Chest: Denies cough or dyspnea Gastrointestinal Gastrointestinal: Denies nausea or vomiting Genitourinary Genitourinary ED: Denies dysuria or hematuria Musculoskeletal Musculoskeletal: Denies back pain or neck pain Integumentary Denies abscess or rash Neurologic Neurologic: Denies headache(s) or weakness Psychiatric Psychiatric: Reports depression Allergic/Immunologic Allergic/Immunologic ED: Denies mouth swelling or urticaria EXAM Physical Exam Const Vital Signs: 02/13/25 14:36 02/13/25 14:36 Temperature 97 F L Temperature Source Temporal Pulse Rate 113 H 118 H Respiratory Rate 18 16 Blood Pressure 163/113 H 169/110 H Blood Pressure Mean 129 129 Pulse Ox 98 98 Oxygen Delivery Method Room Air Room Air Positive well nourished and well developed General Appearance ED: well developed and NAD HEENT atraumatic Eyes Eyes Narrative: Pupils are equal, round, and reactive to light bilaterally. Extraocular musclesare intact. There is a subtle conjunctival hemorrhage on the medial aspect of the right sclera. There is also a small subconjunctival hemorrhage over the superior lateral aspect of the right sclera. Anterior chamber was clear. Thereis no hyphema. There is no subconjunctival hemorrhages on the left eye. Neck supple and no JVD Resp normal respiratory effort and clear to auscultation bilaterally Cardio regular rate and regular rhythm GI non-tender and non-distended Palpation: soft Neuro oriented x3, CN's II-XII intact bilaterally and moves all extremities Sensorium / Orientation: alert Motor Exam: strength 5/5 throughout Psych Mood & Affect: depressed MDM MDM MDM Narrative Medical decision making narrative: Patient was advised that this is a subconjunctival hemorrhage. Patient and mother were advised that there is no emergency treatment necessary for this. Mother states patient has been getting more depressed recently over his grandmother's . Patient denies any suicidal or homicidal ideations. However, mother wants blood work to be drawn and to be assessed for possible psychiatric placement. Mother states patient has not been eating much over the last week. Mother is concerned the patient may be dehydrated from not eating ordrinking much. Because of this, CBC will be obtained to assess for leukocytosisand anemia. Comprehensive metabolic profile will be obtained to assess for hepatic function, renal function, and electrolyte abnormality. Serum alcohol level will be obtained to assess for alcohol intoxication. Urine drug screen will be obtained to assess for substance abuse. Management Discussion w/another healthcare provider: Hospitalist and maintenance worker/Case management Treatment and Re-Evaluation Narrative: Patient was evaluated by psychiatric social worker. Patient is not having any suicidal homicidal ideations. Patient is requesting detox admission for withdrawal from alcohol. Case was discussed with hospitalist. She will admit the patient to her service for alcohol detox. Patient and family understood and were agreeablewith the plan. All questions were answered. Discharge Plan Triage Chief Complaint: Eye Problem ED Provider: Deep Holman Dx/Rx/DC Orders Clinical Impression: Alcohol withdrawal, Desire for detoxification, Subconjunctival hemorrhage of right eye Prescriptions: No Action fluoxetine 20 mg capsule 20 mg PO DAILY olanzapine 20 mg tablet 20 mg PO QHS Primary Care Provider: Nikita Sorensen Referrals: Nikita Sorensen MD [Primary Care Provider] - Print Language: Lao Disposition Disposition: Acute Care Hospital [facility] What to do if you have Problems For any increased pain, shortness of breath, bleeding, nausea or vomiting, chestpain, or any unexpected problems, contact your Primary Care Provider. Call [facility] ([phone]) or report to the closest Emergency Room. Call 911 if necessary. 02/13/25 6225 <Electronically signed by Deep Holman DO> Cosigner Signature (if applicable): CC: Dr. Nikita Sorensen MD ~ Signed [facility] Work Phone: [phone] Discharge summary [facility] Medical Records Department [address] [place] [id number] Emergency Department Summary 02/13/25 MR#: [id number] Acct: [id number] Name: ANNAMARIE LARIOS Rep #:[id number] 1 : 1990 34 From: Deep Weiss PCP: Dr. Nikita Sorensen MD Status:ADM IN Location: MS3 [id number] HPI History of Present Illness Chief Complaint: Eye Problem Informant: patient and parent Onset/Context/Timing Location: Right Eye Onset: Today Context: Sudden Onset Timing: Continuous Worsened by: Nothing Relieved by: Nothing Associated Symptoms Associated Symptoms - Eyes: Redness; Negative for Burning, Crusting, Drainage, Eyelid swelling, Foreign body sensation, Matting or Pain History of injury: No Visual correction: Corrective contact lenses Narrative Narrative: Patient presents with right eye redness that began today. Patient states he woke up with it. Patient denies any trauma or injury. Patient denies any coughing or sneezing. Patient denies any changes in his vision. Patient deniesany foreign body sensation. Patient does wear contact lenses. Patient states nothing makes it better and nothing makes it worse. Patient does not take any anticoagulants. [facility] Medical History (Updated 02/13/25 @ 18:[address] Deep Holman, ) Depression Anxiety COVID-19 Home Medications ?Medication ?Instructions ?Recorded ?Last Taken ?Type fluoxetine 20 mg capsule 20 mg PO DAILY 02/13/25 Unkn own History olanzapine 20 mg tablet 20 mg PO QHS 02/13/25 Unknow n History Allergy/AdvReac Type Severity Reaction Status Date / Time Cephalosporins Allergy Hives Verified 02/13/25 14:36 Penicillins Allergy Hives Verified 02/13/25 14:36 Surgical History (Updated 02/13/25 @ 15:[address] Deep Holman DO) Hx of tympanostomy tubes History of adenectomy Hx of tonsillectomy Hx of splenectomy Social History Smoking Status: Former smoker substance use type: former substance user ROS ROS ED Constitutional Constitutional ED: Denies chills or fever(s) Eyes Eyes: Denies blurry vision or change in vision ENT ENT ED: Denies rhinorrhea or sore throat Cardiovascular Cardiovascular: Denies chest pain or palpitations Respiratory/Chest Respiratory/Chest: Denies cough or dyspnea Gastrointestinal Gastrointestinal: Denies nausea or vomiting Genitourinary Genitourinary ED: Denies dysuria or hematuria Musculoskeletal Musculoskeletal: Denies back pain or neck pain Integumentary Denies abscess or rash Neurologic Neurologic: Denies headache(s) or weakness Psychiatric Psychiatric: Reports depression Allergic/Immunologic Allergic/Immunologic ED: Denies mouth swelling or urticaria EXAM Physical Exam Const Vital Signs: 02/13/25 14:36 02/13/25 14:36 Temperature 97 F L Temperature Source Temporal Pulse Rate 113 H 118 H Respiratory Rate 18 16 Blood Pressure 163/113 H 169/110 H Blood Pressure Mean 129 129 Pulse Ox 98 98 Oxygen Delivery Method Room Air Room Air Positive well nourished and well developed General Appearance ED: well developed and NAD HEENT atraumatic Eyes Eyes Narrative: Pupils are equal, round, and reactive to light bilaterally. Extraocular musclesare intact. There nemo subtle conjunctival hemorrhage on the medial aspect of the right sclera. There is also a small subconjunctival hemorrhage over the superior lateral aspect of the right sclera. Anterior chamber was clear. Thereis no hyphema. There is no subconjunctival hemorrhages on the left eye. Neck supple and no JVD Resp normal respiratory effort and clear to auscultation bilaterally Cardio regular rate and regular rhythm GI non-tender and non-distended Palpation: soft Neuro oriented x3, CN's II-XII intact bilaterally and moves all extremities Sensorium / Orientation: alert Motor Exam: strength 5/5 throughout Psych Mood & Affect: depressed MDM MDM MDM Narrative Medical decision making narrative: Patient was advised that this is a subconjunctival hemorrhage. Patient and mother were advised thatthere is no emergency treatment necessary for this. Mother states patient has been getting more depressed recently over his grandmother's . Patient denies any suicidal or homicidal ideations. How ever, mother wants blood work to be drawn and to be assessed for possible psychiatric placement. Mother states patient has not been eating much over the last week. Mother is concerned the patient maybe dehydrated from not eating ordrinking much. Because of this, CBC will be obtained to assess for l eukocytosisand anemia. Comprehensive metabolic profile will be obtained to assess for hepatic function, renal function, and electrolyte abnormality. Serum alcohol level will be obtained to assess foralcohol intoxication. Urine drug screen will be obtained to assess for substance abuse. Management Discussion w/another healthcare provider: Hospitalist and maintenance worker/Case management Treatment and Re-Evaluation Narrative: Patient was evaluated by psychiatric social worker. Patient is not having any suicidal homicidal ideations. Patient is requesting detox admission for withdrawal from alcohol. Case was discussed with hospitalist.She will admit the patient to her service for alcohol detox. Patient and family understood and wereagreeablewith the plan. All questions were answered. Discharge Plan Triage Chief Complaint: Eye Problem ED Provider: Deep Holman Dx/Rx/DC Orders Clinical Impression: Alcohol withdrawal, Desire for detoxification, Subconjunctival hemorrhage of right eye Prescriptions: No Action fluoxetine 20 mg capsule 20 mg PO DAILY olanzapine 20 mg tablet 20 mg PO QHS Primary Care Provider: Nikita Sorensen Referrals: Nikita Sorensen MD [Primary Care Provider] - Print Language: Lao Disposition Disposition: Acute Care Hospital [facility] What to do if you have Problems For any increased pain, shortness of breath, bleeding, nausea or vomiting, chestpain, or any unexpected problems, contact your Primary Care Provider. Call [facility] ([phone]) or report tothe closest Emergency Room. Call 911 if necessary. 02/13/25 0075 Cosigner Signature (if applicable): CC: Dr. Nikita Sorensen MD ~ Signed [facility]08-17-2025 History and physical note Author Xochilt De Jesus [facility] Note Date/Time February 13, 2025 7: 16pm [facility] Medical Records Department [address] [place] [address] H&P Exam - Hospitalist 02/13/25 1848 MR#: [id number] Acct: [id number] Name: ANNAMARIE LARIOS Rep #:[id number] 5 : 1990 34 From: Xochilt De Jesus MD PCP: Dr. Nikita Sorensen MD Status:ADM IN Location: SD3 [id number] HPI - General General Date of Admission: 02/13/25 Date of Service: 02/13/25 Chief Complaint: Right eye redness and alcohol use HPI Narrative ANNAMARIE LARIOS, is a 34 M with a history of depression, chewing tobacco use, remote history of alcohol use presented [facility] ED 02/13/2025 initially reporting some redness on his sclera when he woke up but when he got here family also reported they thought he was depressed and asked if labs could be obtained for further workup, patient was tachycardic with heart rate of 114, blood pressure 175/106, respiratory rate 22 and pulse ox 94% on room air, patient afebrile. Lab workup with white blood cell count 12.5, hemoglobin 16.2,reported anion gap of 24 however unclear how accurate this is as bicarb is within normal limits, BUN of 12 and creatinine 0.98. AST 227 ALT 888. UDS positive for cannabinoids and alcohol level at 3 PM found to be 321. This was discussed with patient who then reported significant alcohol drinking over the past month and was agreeable to come in for detox. Hospitalist contacted for admission. Patient evaluated with family at bedside, reportedly he lost his joba month ago and has been drinking pretty heavily since then roughly a 12 pack ofwhite claw a day and has to drink from the time he wakes up to help with withdrawal symptoms. His grandmother recently which further escalated his drinking and also reports he has not been eating food or drinking water and lastate a meal on when his grandmother's was. Reports having tubesin his ears multiple times so sometimes his right ear pops but currently having no hearing difficulties, has the redness around the eye but no pain. Did remarkthat he has been wearing the same contacts for months and never takes them out even when he sleeps and has no other contacts and no glasses so he just does nottake them out. [facility] Medical History (Updated 02/13/25 @ 18:[address] Deep Holman, DO) Anxiety COVID-19 Depression Home Medications ?Medication ?Instructions ?Recorded ?Last Taken ?Type fluoxetine 20 mg capsule 20 mg PO DAILY 02/13/25 Unkn own History olanzapine 20 mg tablet 20 mg PO QHS 02/13/25 Unknow n History Allergy/AdvReac Type Severity Reaction Status Date / Time Cephalosporins Allergy Hives Verified 02/13/25 14:36 Penicillins Allergy Hives Verified 02/13/25 14:36 Surgical History (Updated 02/13/25 @ 15:[address] Deep Holman, DO) History of adenectomy Hx of splenectomy Hx of tonsillectomy Hx of tympanostomy tubes Social History Smoking Status: Former smoker substance use type: former substance user ROS ROS Narrative General: Denies fever/chills HENT: Denies headache, denies stuffy nose, denies sore throat EYES: Denies changes in vision, does have some redness of right eye Resp: Denies cough, denies shortness of breath Cardiac: Denies chest pain GI: Denies abdominal pain, denies changes in bowel, denies nausea/vomiting : Denies changes in urination Extremity: Denies swelling MSK: Denies weakness Neuro: Denies any numbness/tingling, feeling shaky Heme: Denies any bleeding or bruising Skin: Denies rashes Psychiatric: Anxious and tearful Vital Signs Vital Signs Vital Signs: 02/13/25 14:36 02/13/25 14:36 02/13/25 17:05 Temperature 97 F L Temperature Source Temporal Pulse Rate 113 H 118 H 114 H Respiratory Rate 18 16 22 H Blood Pressure 163/113 H 169/110 H 175/106 H Blood Pressure Mean 129 129 129 Pulse Ox 98 98 94 Oxygen Delivery Method Room Air Room Air Room Air 02/13/25 17:21 02/13/25 18:00 Temperature 99 F Temperature Source Pulse Rate 113 H 102 H Respiratory Rate 18 20 H Blood Pressure 171/95 H 165/74 H Blood Pressure Mean 120 104 Pulse Ox 96 100 Oxygen Delivery Method Room Air Weight Weight: 88.8 kg Body Mass Index (BMI) 28.9 Physical Exam Narrative General: Alert, oriented, appears anxious and tremulous HEENT: Atraumatic, normocephalic Eyes: Subconjunctival hemorrhage on parts of right eye without pain, pupils equal, denies pain, extraocular movements grossly intact Neck: Supple Respiratory: Clear to auscultation bilaterally, normal respiratory effort Cardiovascular: Low-grade sinus tachycardia GI: Soft, nontender, nondistended Extremities: No edema Musculoskeletal: Moving all extremities Neuro: No overt focal neurological deficits, tremulous Skin: No rashes appreciated Psych: Cooperative but tearful and anxious Results Lab / Micro Data 02/13/25 15:17 02/13/25 15:17 Labs: Laboratory Results - last 24 hr 02/13/25 15:17: WBC 12.5 H, RBC 5.53, Hgb 16.2, Hct 46.6, MCV 84.3, MCH 29.3, MCHC 34.8, RDW Std Deviation 46.5 H, RDW Coeff of Rhianna 15.1 H, Plt Count 354, MPV10.1, Immature Gran % (Auto) 0.400, Neut % (Auto) 66.7, Lymph % (Auto) 22.1, [place] % (Auto) 9.5, Eos % (Auto) 0.1, Baso % (Auto) 1.2 H, Absolute Neuts (auto) 8.4 H, Absolute Lymphs (auto) 2.77, Nucleated RBC % 0, Sodium 137, Potassium 3.7, Chloride 92 L, Carbon Dioxide 21.8, Anion Gap 24 H, BUN 12, Creatinine 0.98, Estim Creat Clear Calc 115.98, Est GFR (MDRD) Non-Af 103, BUN/Creatinine Ratio 12.4, Glucose 92, Calcium 8.8, Total Bilirubin 0.61, AST 227 H, ALT 188 H,Alkaline Phosphatase 91, Total Protein 7.9, Albumin 4.4, Globulin 3.5, Albumin/Globulin Ratio 1.3, Ethyl Alcohol 321.0 H* 02/13/25 16:55: Urine Opiates Screen NEGATIVE, U Buprenorphine Qual NEGATIVE, UrOxycodone Screen NEGATIVE, Urine Methadone Screen NEGATIVE, Urine Fentanyl Screen NEGATIVE, Ur Barbiturates Screen NEGATIVE, Ur Phencyclidine Scrn NEGATIVE, Ur Amphetamines Screen NEGATIVE, U Benzodiazepines Scrn NEGATIVE, Urine Cocaine Screen NEGATIVE, U Cannabinoids Screen PRESUMPTIVE POSITIVE Assessment & Plan Assessment/Plan (1) Alcohol withdrawal: (2) Subconjunctival hemorrhage of right eye: PLAN: Plan #Alcohol use disorder - We will begin CIWA every 4 for 24 hours, then every 6 for 24 hours, then every12 until discharge -Will begin phenobarbital taper -Gabapentin 300 mg every 8 as needed -Will start Bentyl and hydroxyzine as needed as well as loperamide as needed -Trazodone 100 mg p.o. nightly as needed sleep -Begin thiamine and folic acid supplementation -Zofran as needed for nausea -Case management consult to assist with discharge planning -EtOH 321 -UDS cannabis #Subconjunctival hemorrhage -No pain or vision changes -Pt reports he never takes his contacts out, will greatly benefit from followingon discharge so he can get additional glasses and contacts #Depression/anxiety -Continue home medications #Tobacco use -Advise cessation -Nicotine replacement available if desired #DVT ppx: Low risk, ambulatory Xochilt De Jesus MD Time spent in the patient's overall evaluation, decision-making process, review of diagnostic data, adjustment of management, discussion with other providers, nursing and ancillary staff involved in patient's care documentation, 56 Minutes Charges/Coding Visit Charges Inpatient E&M: 82612 Init Hosp L2 02/13/256 <Electronically signed by Xochilt De Jesus MD> Cosigner Signature (if applicable): CC: Dr. Nikita Sorensen MD; Dr. Xochilt De Jesus MD~ Signed [facility] Work Phone: [phone]) 345-658408-17-2025 Evaluation note* Diagnosis Onset Date Resolution Status Admit Date Alcohol withdrawal acute February 13, 2025 6:49pm Subconjunctival hemorrhage o f right eye acute February 13 6:49pm [facility] Work Phone: [phone] 608-677808-17-2025 History and physical note [facility] Medical Records Department [address] [place] [address] H&P Exam - Hospitalist 02/13/25 1848 MR#: [id number] Acct: [id number] Name: ANNAMARIE LARIOS Rep #:[id number] 5 : 1990 34 From: Xochilt De Jesus MD PCP: Dr. Nikita Sorensen MD Status:ADM IN Location: [place] [id number] HPI - General General Date of Admission: 02/13/25 Date of Service: 02/13/25 Chief Complaint: Right eye redness and alcohol use HPI Narrative ANNAMARIE LARIOS, is a 34 M with a history of depression, chewing tobacco use, remote history of alcohol use presented [facility] ED 02/13/2025 initially reporting some redness on his sclera when he woke up but when he got here family also reported they thought he was depressed and asked if labs could be obtained for further workup, patient was tachycardic with heart rate of 114, blood pressure 175/106, respiratory rate 22 and pulse ox 94% on room air, patient afebrile. Lab workupwith white blood cell count 12.5, hemoglobin 16.2,reported anion gap of 24 however unclear how accurate this is as bicarb is within normal limits, BUN of 12 and creatinine 0.98. AST 227 ALT 888. UDS p ositive for cannabinoids and alcohol level at 3 PM found to be 321. This was discussed with patientwho then reported significant alcohol drinking over the past month and was agreeable to come in fordetox. Hospitalist contacted for admission. Patient evaluated with family at bedside, reportedly helost his joba month ago and has been drinking pretty heavily since then roughly a 12 pack ofwhite claw a day and has to drink from the time he wakes up to help with withdrawal symptoms. His grandmother recently which further escalated his drinking and also reports he has not been eating food or drinking water and lastate a meal on when his grandmother's was. Reports having tu besin his ears multiple times so sometimes his right ear pops but currently having no hearing difficulties, has the redness around the eye but no pain. Did remarkthat he has been wearing the same contacts for months and never takes them out even when he sleeps and has no other contacts and no glasses so he just does nottake them out. [facility] Medical History (Updated 02/13/25 @ 18:[address] Deep Holman, ) Anxiety COVID-19 Depression Home Medications ?Medication ?Instructions ?Recorded ?Last Taken ?Type fluoxetine 20 mg capsule 20 mg PO DAILY 02/13/25 Unkn own History olanzapine 20 mg tablet 20 mg PO QHS 02/13/25 Unknow n History Allergy/AdvReac Type Severity Reaction Status Date / Time Cephalosporins Allergy Hives Verified 02/13/25 14:36 Penicillins Allergy Hives Verified 02/13/25 14:36 Surgical History (Updated 02/13/25 @ 15:[address] Deep Holman, ) History of adenectomy Hx of splenectomy Hx of tonsillectomy Hx of tympanostomy tubes Social History Smoking Status: Former smoker substance use type: former substance user ROS ROS Narrative General: Denies fever/chills HENT: Denies headache, denies stuffy nose, denies sore throat EYES: Denies changes in vision, does have some redness of right eye Resp: Denies cough, denies shortness of breath Cardiac: Denies chest pain GI: Denies abdominal pain, denies changes in bowel, denies nausea/vomiting : Denies changes in urination Extremity: Denies swelling MSK: Denies weakness Neuro: Denies any numbness/tingling, feeling shaky Heme: Denies any bleeding or bruising Skin: Denies rashes Psychiatric: Anxious and tearful Vital Signs Vital Signs Vital Signs: 02/13/25 14:36 02/13/25 14:36 02/13/25 17:05 Temperature 97 F L Temperature Source Temporal Pulse Rate 113 H 118 H 114 H Respiratory Rate 18 16 22 H Blood Pressure 163/113 H 169/110 H 175/106 H Blood Pressure Mean 129 129 129 Pulse Ox 98 98 94 Oxygen Delivery Method Room Air Room Air Room Air 02/13/25 17:21 02/13/25 18:00 Temperature 99 F Temperature Source Pulse Rate 113 H 102 H Respiratory Rate 18 20 H Blood Pressure 171/95 H 165/74 H Blood Pressure Mean 120 104 Pulse Ox 96 100 Oxygen Delivery Method Room Air Weight Weight: 88.8 kg Body Mass Index (BMI) 28.9 Physical Exam Narrative General: Alert, oriented, appears anxious and tremulous HEENT: Atraumatic, normocephalic Eyes: Subconjunctival hemorrhage on parts of right eye without pain, pupils equal, denies pain, extraocular movements grossly intact Neck: Supple Respiratory: Clear to auscultation bilaterally, normal respiratory effort Cardiovascular: Low-grade sinus tachycardia GI: Soft, nontender, nondistended Extremities: No edema Musculoskeletal: Moving all extremities Neuro: No overt focal neurological deficits, tremulous Skin: No rashes appreciated Psych: Cooperative but tearful and anxious Results Lab / Micro Data 02/13/25 15:17 02/13/25 15:17 Labs: Laboratory Results - last 24 hr 02/13/25 15:17: WBC 12.5 H, RBC 5.53, Hgb 16.2, Hct 46.6, MCV 84.3, MCH 29.3, MCHC 34.8, RDW Std Deviation 46.5 H, RDW Coeff of Rhianna 15.1 H, Plt Count 354, MPV10.1, Immature Gran % (Auto) 0.400, Neut % (Auto) 66.7, Lymph % (Auto) 22.1, [place] % (Auto) 9.5, Eos % (Auto) 0.1, Baso % (Auto) 1.2 H, Absolute Neuts (auto) 8.4 H, Absolute Lymphs (auto) 2.77, Nucleated RBC % 0, Sodium 137, Potassium 3.7, Chloride 92 L, Carbon Dioxide 21.8, Anion Gap 24 H, BUN 12, Creatinine 0.98, Estim Creat Clear Calc 115.98, Est GFR (MDRD) Non-Af 103, BUN/Creatinine Ratio 12.4, Glucose 92, Calcium 8.8, Total Bilirubin0.61, AST 227 H, ALT 188 H,Alkaline Phosphatase 91, Total Protein 7.9, Albumin 4.4, Globulin 3.5, Al bumin/Globulin Ratio 1.3, Ethyl Alcohol 321.0 H* 02/13/25 16:55: Urine Opiates Screen NEGATIVE, U Buprenorphine Qual NEGATIVE, UrOxycodone Screen NEGATIVE, Urine Methadone Screen NEGATIVE, Urine Fentanyl Screen NEGATIVE, Ur Barbiturates Screen NEGATIVE, Ur Phencyclidine Scrn NEGATIVE, Ur Amphetamines Screen NEGATIVE, U Benzodiazepines Scrn NEGATIVE, Urine Cocaine Screen NEGATIVE, U Cannabinoids Screen PRESUMPTIVE POSITIVE Assessment & Plan Assessment/Plan (1) Alcohol withdrawal: (2) Subconjunctival hemorrhage of right eye: PLAN: Plan #Alcohol use disorder - We will begin CIWA every 4 for 24 hours, then every 6 for 24 hours, then every12 until discharge -Will begin phenobarbital taper -Gabapentin 300 mg every 8 as needed -Will start Bentyl and hydroxyzine as needed as well as loperamide as needed -Trazodone 100 mg p.o. nightly as needed sleep -Begin thiamine and folic acid supplementation -Zofran as needed for nausea -Case management consult to assist with discharge planning -EtOH 321 -UDS cannabis #Subconjunctival hemorrhage -No pain or vision changes -Pt reports he never takes his contacts out, will greatly benefit from followingon discharge so he can get additional glasses and contacts #Depression/anxiety -Continue home medications #Tobacco use -Advise cessation -Nicotine replacement available if desired #DVT ppx: Low risk, ambulatory Xochilt De Jesus MD Time spent in the patient's overall evaluation, decision-making process, review of diagnostic data,adjustment of management, discussion with other providers, nursing and ancillary staff involved in patient's care documentation, 56 Minutes Charges/Coding Visit Charges Inpatient E&M: 44266 Init Hosp L2 02/13/251915 Cosigner Signature (if applicable): CC: Dr. Nikita Sorensen MD; Dr. Xochilt De Jesus MD~ Signed [facility]02-05-2025 Emergency department Note* Jimmy Flood RN - 08/04/2024 4:28 AM EST Complete report provided. To ed of [facility]. [id number] Emergency department Note* Jimmy Flood RN - 08/04/2024 4:28 AM EST Complete report provided. To ed of [facility]. * Jimmy Flood RN - 08/04/2024 4:26 AM EST A/ox3. Independent to stretcher. Discharged to [facility]. Belongings set with ems transport. * Paras Pope - 08/04/2024 3:19 AM EST Luzma Tech at bedside obtaining vitals. * LILLIE Hartley - 08/04/2024 1:51 AM EST CHRISTO Fox giving patient warm blanket for comfort. * LILLIE Hartley - 08/04/2024 1:28 AM EST EKG at patient bedside. * LILLIE Hartley - 08/04/2024 1:[address] Tellez at patient bedside. * Paras Pope - 08/04/2024 1:12 AM EST Pt changed into 2 gowns and wanded by officer. Pt has 1 belonging bag. with pt in 47. * Prosper Tellez DO - 08/04/2024 12:54 AM EST EMERGENCY DEPARTMENT ENCOUNTER Pt Name: Neal Larios [...] COVID 04/2021 Eczema IBS (irritable bowel syndrome) [place] exposure MRSA (methicillin resistant staph aureus) culture positive Substance abuse (CMS/HCC) (HCC) SURGICAL HISTORY Past Surgical History: Procedure Laterality [...] grade. . Her biological mom lives in [place]. No significant other right now. Has 2 [...] Abnormal ETHANOL IN SER/PLAS 274 (*) Narrative: AUDIOVISUAL PRODUCTION SPECIALIST depression is seen >100 mg/dL. NOTE: This result is for medical treatment only. Analysis performed using non- forensic procedures. COMPLETE URINALYSIS - Abnormal Color, Urine [...] Culture. Procedure Abnormality Status --------- ------ Complete Urinalysis[[id number]] Abnormal Final result Please view results for [...] If confirmation is needed, request confirmation under separateorder. All other labs were within normal range [...] department for psychiatric evaluation. [facility] patient is afebrile hemodynamically stable. Alcohol elevated to 274. Mild elevation of transaminases likely secondary to alcohol use. Patient medically cleared for discharge to [facility] for further psychiatric evaluation. Diagnoses as of [...] are any questions or concerns please feel freeto contact the dictating provider for clarification.) Prosper Tellez DO (electronically signed) Emergency Medicine Provider Prosper Tellez DO Resident 08/04/24329 Cosigned by Madelyn Crain MD at 08/04/2024 6:10 AM EST * Madelyn Crain MD - 08/04/2024 12:54 AM EST Emergency Department Encounter [facility] EMERGENCY DEPT Patient: Neal Larios : 1990 [...] emergency department for depression. Patient sent from [facility] for medical clearance. Patient presented there with his mother who has been worried about him. He states he had some social issues ongoing with his ex partner. Denies any abuse. Denies hallucinations alcohol drug use homicidal thoughts. Apparently at [facility] he endorsed SI but denies that here. Denies prior attempts. States he is not on any psychiatric medications but he was given Ativan and hydroxyzine reportedly at [facility]. He lives at home with his 10-year-old daughter he states. Focused exam: Vitals reviewed afebrile nontoxic head atraumatic neck supple heart sounds regular no respiratory distress moving all extremities equally appears to be depressed with flat affect calm cooperative Brief ED course/MDM: 34-year-old male presents for depression and psych eval. Differential depression, anxiety, suicidalthoughts. Plan for medical clearance labs and pink slipped. Will have psych evaluate once medicallycleared. Medical history impacting this was includes anxiety. Social history impacting this visit in cludes no drug abuse reported Diagnostics interpreted by [...] are any questions or concerns please feel freeto contact the dictating provider for clarification.) Madelyn Crain MD [employer] Madelyn Crain MD 08/04/24 0141 * Ruddy Eugene RN - 08/04/2024 12:54 AM EST Patient was sent from [facility] for medical clearance. Patient is depressed. Patient denies SI to RN. Patient told PES that he is SI. documented in this [facility]02-05-2025 Emergency department Note* Jimmy Flood RN - 08/04/2024 4:26 AM EST A/ox3. Independent to stretcher. Discharged to [facility]. Belongings set with ems transport. [address]05-2025 Emergency department Note* Paras Pope - 08/04/2024 3:19 AM EST Luzma Tech at bedside obtaining vitals. [address]05-2025 Emergency department Note* LILLIE Hartley - 08/04/2024 1:51 AM EST CHRISTO Fox giving patient warm blanket for comfort. [address]2025 Emergency department Note* LILLIE Hartley - 08/04/2024 1:28 AM EST EKG at patient bedside. [address]2025 Emergency department Note* LILLIE Hartley - 08/04/2024 1:[address] Tellez at patient bedside. [address]2025 Emergency department Note* Paras Pope - 08/04/2024 1:12 AM EST Pt changed into 2 gowns and wanded by officer. Pt has 1 belonging bag. with pt in 47. [facility] [id number] Emergency department Triage note* Ruddy Eugene RN - 08/04/2024 12:54 AM EST Patient was sent from [facility] for medical clearance. Patient is depressed. Patient denies SI to RN. Patient told PES that he is SI. [facility] [id number] NotePatient was sent from [facility] for medical clearance. Patient is depressed. Patient denies SI to RN. Patient told PES that he is SI.[facility] 08-04-2024 Physician Emergency department Note* Prosper Tellez DO - 08/04/2024 12:54 AM EST EMERGENCY DEPARTMENT ENCOUNTER Pt Name: Neal Larios Birthdate 1990 Date of evaluation: 08/04/2024 ED Provider: Prosper Tellez DO CHIEF COMPLAINT Chief Complaint Patient presents with Suicidal Patient was sent from [facility] for medical clearance. Patient is depressed. Patient [...] COVID 04/2021 Eczema IBS (irritable bowel syndrome) [place] exposure MRSA (methicillin resistant staph aureus) culture positive Substance abuse (CMS/HCC) ([facility]) SURGICAL HISTORY Past Surgical History: Procedure Laterality [...] grade. . Her biological mom lives in [place]. No significant other right now. Has 2 [...] Abnormal ETHANOL IN SER/PLAS 274 (*) Narrative: AUDIOVISUAL PRODUCTION SPECIALIST depression is seen >100 mg/dL. NOTE: This result is for medical treatment only. Analysis performed using non- forensic procedures. COMPLETE URINALYSIS - Abnormal Color, Urine [...] Culture. Procedure Abnormality Status --------- ------ Complete Urinalysis[[id number]] Abnormal Final result Please view results for [...] If confirmation is needed, request confirmation under separateorder. All other labs were within normal range [...] department for psychiatric evaluation. On presentation to theemergency department patient is afebrile hemodynamically stable. Alcohol elevated to 274. Mild elevation of transaminases likely secondary to alcohol use. Patient medically cleared for discharge to [facility] for further psychiatric evaluation. Diagnoses as of [...] are any questions or concerns please feel freeto contact the dictating provider for clarification.) Prosper Tellez DO (electronically signed) Emergency Medicine Provider Prosper Tellez DO Resident 08/04/24329 Cosigned by Madelyn Crain MD at 08/04/2024 6:10 AM EST [facility] [id number] Physician Emergency department Note* Madelyn Crain MD - 08/04/2024 12:54 AM EST Emergency Department Encounter [facility] EMERGENCY DEPT Patient: Neal Larios : 1990 [...] emergency department for depression. Patient sent from [facility] for medical clearance. Patient presented there [...] was given Ativan and hydroxyzine reportedly at [facility]. He lives at home with his 10-year-old daughter he states. Focused exam: Vitals reviewed afebrile nontoxic head atraumatic neck supple heart sounds regular no respiratory distress moving all extremities equally appears to be depressed with flat affect calm cooperative Brief ED course/MDM: 34-year-old male presents for depression and psych eval. Differential depression, anxiety, suicidalthoughts. Plan for medical clearance labs and pink slipped. Will have psych evaluate once medicallycleared. Medical history impacting this was includes anxiety. Social history impacting this visit in cludes no drug abuse reported Diagnostics interpreted by [...] are any questions or concerns please feel freeto contact the dictating provider for clarification.) Madelyn Crain MD Acute [facility] Madelyn Crain MD 08/04/24 0141 [employer] Phone: [phone]) 186-586302-14-2024 NoteHNO ID: [id number] Author: NATY NAGY APRN.[facility] Service: ? Author Type: Nurse Practitioner Type: Progress Notes Filed: 08/14/2023 09:40 Note Text: This note was created using Digital Domain Media Groupriter. Subjective Annamarie Larios is a 33 [...] (attention deficit hyperactivity disorder) Bipolar 1 disorder ([facility]) Eczema Hx MRSA infection IBS (irritable bowel syndrome) Substance abuse ([facility]) No past surgical history on file. ALLERGIES [...] tenderness or frontal sinus tenderness. Mouth/Throat: Lips: Villarreal. No lesions. Mouth: Mucous membranes are moist. [...] eye: Left conjunctiva i (more content not included)...[facility]02-14-2024 History of Present illness Narrative* Naty Nagy APRN.[facility] - 08/13/2023 7:31 PM EST This note was created using [employer] Domain Media [employer]riter. Subjective Annamarie Larios is a 33 [...] Pertinent negatives include no chest pain, no diarrhea,no vomiting, no congestion, no headaches and no sore throat. Treatments tried: aspirin. The treatment provided no relief. PAST MEDICAL HISTORY Diagnosis Date ADHD (attention deficit hyperactivity disorder) Bipolar 1 disorder ([facility]) Eczema Hx MRSA infection IBS (irritable bowel syndrome) Substance abuse ([facility]) No past surgical history on file. ALLERGIES [...] tenderness or frontal sinus tenderness. Mouth/Throat: Lips: Villarreal. No lesions. Mouth: Mucous membranes are moist. [...] BP 142/86 Temp 101.5. 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 I have reviewed the Advanced Practice Registered Nurse (BOILER PLANT WORKER) Student's documentation and verified the findings in the note as written. Any additions or changes are noted in bold/italics. Signature: Naty Nagy Date: 08/14/2023 Time: 9:40 AM [facility] Telephone encounter Note * Telephone Encounter - KEYONA Parker CNP - 07/25/2023 11:41 AM EST Rx sent. Follow up as scheduled. [facility] [id number] Miscellaneous Notes* Telephone Encounter - KEYONA Parker CNP - 07/25/2023 11:41 AM EST Rx sent. Follow up as scheduled. * Telephone Encounter - Radha Ennis - 07/25/2023 10:04 AM EST Prescription Request: Last medication check: 10/25/22 Last physical exam: 05/01/23 Next scheduled appointment: 05/03/24 Last date of refill on this medication 07/01/23 documented in this [facility]01-26-2024 Telephone encounter Note* Telephone Encounter - Radhajohn paul Ennis - 07/25/2023 10:04 AM EST Prescription Request: Last medication check: 10/25/22 Last physical exam: 05/01/23 Next scheduled appointment: 05/03/24 Last date of refill on this medication 07/01/23 [facility] [id number] Telephone encounter Note* Telephone Encounter - KEYONA Fierro CNP - 07/01/2023 2:16 PM EST Revie [facility] [id number] Miscellaneous Notes* Telephone Encounter - KEYONA Fierro CNP - 07/01/2023 2:16 PM EST Revie * Telephone Encounter - Chen Wang MA - 07/01/2023 11:14 AM EST Prescription Request: Last medication check: none Last physical exam: 05/01/23 Next scheduled appointment: 05/03/24 Last date of refill on this medication 05/26/23 30 day no refill documented in this [facility]01-02-2024 Telephone encounter Note* Telephone Encounter - Chen Wang MA - 07/01/2023 11:14 AM EST Prescription Request: Last medication check: none Last physical exam: 05/01/23 Next scheduled appointment: 05/03/24 Last date of refill on this medication 05/26/23 30 day no refill [place] [id number] Miscellaneous Notes* Telephone Encounter - KEYONA Fierro CNP - 05/26/2023 4:52 PM EST * Telephone Encounter - Chen Wang MA - 05/26/2023 11:56 AM EST Prescription Request: Last medication check: none Last physical exam: 05/01/23 Next scheduled appointment: 05/23/24 Last date of refill on this medication 04/25/23 30 day no refill documented in this [facility]11-27-2023 Telephone encounter Note* Telephone Encounter - KEYONA Fierro CNP - 05/26/2023 4:52 PM EST [place] [id number] Telephone encounter Note* Telephone Encounter - Chen Wang MA - 05/26/2023 11:56 AM EST Prescription Request: Last medication check: none Last physical exam: 05/01/23 Next scheduled appointment: 05/23/24 Last date of refill on this medication 04/25/23 30 day no refill [place] [id number] Telephone encounter Note* Telephone Encounter - KEYONA Fierro CNP - 05/20/2023 4:10 PM EST Noted [facility] [id number] Miscellaneous Notes* Telephone Encounter - KEYONA Fierro CNP - 05/20/2023 4:10 PM EST Noted * Telephone Encounter - Chanell Gomez MA - 05/02/2023 10:31 AM EDT Notified, scheduled, orders pended. * Telephone Encounter - Chanell Gomez MA - 05/02/2023 10:31 AM EDT ----- Message from KEYONA Fierro CNP sent at 05/02/2023 10:03 AM EDT ----- CMP-normal kidney and liver functioning HIV negative Hepatitis C negative Lipid panel-total cholesterol elevated at 213, HDL good at 43, triglycerides are good at 104, LDL cholesterol is elevated at 148, recommend strict low-fat low- cholesterol diet and rechecking in 4 weeks, at that time if still elevated would recommend starting cholesterol medication documented in this [facility]11-21-2023 History and physical note* Nasrin Jaffe MD - 05/20/2023 1:03 PM EST Images from the original note were not included. [facility] [address] [place] [id number] Dept: [phone] Dept Patient Name: Annamarie Larios Date: 05/20/23 [...] today. Risks/benefits/possible complications were reviewed with the patientas per the preoperative office note to include [...] hyperactivity disorder) Eczema IBS (irritable bowel syndrome) [place] exposure MRSA (methicillin resistant staph aureus) culture positive Substance abuse ([facility]) ([facility]) Past Surgical History: Surgical History Past Surgical [...] under local anesthesia as an outpatient at [facility]. The orders are in. -The risks, benefits and options were discussed with the pt. The risks included but not limited to pain, bleeding, infection, heavy scarring, damage to surrounding structures, fluid collections, asymmetry, and need for further procedures. All of His questions were answered to their satisfaction andHe agrees to proceed with the procedure. [employer] Phone: 1(564) 874-632411-21-2023 History and physical note* Nasrin Jaffe MD - 05/20/2023 1:03 PM EST Images from the original note were not included. [facility] [address] [place] [id number] Dept: [phone] Dept Patient Name: Annamarie Larios Date: 05/20/23 [...] today. Risks/benefits/possible complications were reviewed with the patientas per the preoperative office note to include [...] hyperactivity disorder) Eczema IBS (irritable bowel syndrome) [place] exposure MRSA (methicillin resistant staph aureus) culture positive Substance abuse ([facility]) ([facility]) Past Surgical History: Surgical History Past Surgical [...] under local anesthesia as an outpatient at [facility]. The orders are in. -The risks, benefits and options were discussed with the pt. The risks included but not limited to pain, bleeding, infection, heavy scarring, damage to surrounding structures, fluid collections, asymmetry, and need for further procedures. All of His questions were answered to their satisfaction andHe agrees to proceed with the procedure. documented in this [facility]11-21-2023 Miscellaneous Notes* Perioperative Nursing Note - Yvette Rico RN - 05/20/2023 12:50 PM EST Patient ambulated in hallway and tolerated well. Peripheral IV removed without complication. Discharge instructions reviewed with patient. All questions answered. Patient verbalized understanding of instructions received. Discharge packet given to patient. Patient denies pain. Denies dizziness and nausea. Patient declined to receive discharge medications as he states he has them at home. All belongings taken with patient on discharge. * Perioperative Nursing Note - Yvette Rico RN - 05/20/2023 12:30 PM EST Family/visitor updated and at bedside with patient. 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 Sindhu Espinosa MD Procedure Summary Anesthesia: Choice ASA: II Estimated Blood Loss: 2 mL Total IV Fluids: 200 for the mL Drains: * None in log * Specimens ID Source Type Tests Collected By Collected At Frozen? Priority Lab ID 1 Forehead Tissue TISSUE EXAM Nasrin Jaffe MD 05/20/23 1203 No [id number] Description: FOREHEAD SOFT TISSUE Staff: Card Feeder: Isadora Rico RN Relief Card Feeder: Neelam Farooq RN Scrub Person: Jenny Meade RN Sug[employer] Business Analyst Student: Xi Guerrero Indications: Neal Larios is [...] and hematoma formation as well as scarring withhypertrophic or keloidal scar. All patient questions were answered to his satisfaction. Patient signed informed consent. Technical details: Patient was subsequently taken to the operating room. He was placed in the supine position. After induction of MAC anesthesia the area was marked for excision in an transverse elliptical fashion 2 cmlong and 5 mm wide along the lateral skin crease lines Area was infiltrated with 3 cc of quarter percent Marcaine with epinephrine. We waited for a few minutes until the blanching of palpable epinephrine was appreciated. Using a 15 blade knife incision was made through the skin ellipse down to the subcutaneous tissue. Using a coagulating Bovie incisionwas taken down through the subcutaneous tissue until the frontalis muscle was encountered. The frontalis muscle was split lateral to the fibers in the longitudinal direction. At that point it was encapsulated lipoma was encountered. Excision of the lipoma was performed witha coagulating Bovie by dissecting in the loops of yellow tissue outside the to the lipoma. Lipoma was found to be deep and attached to the underlying periosteum. Lipoma capsule was dissected from theunderlying periosteum. Hemostasis was achieved with the coagulating Bovie. Frontalis muscle was approximated in the longitudinal fashion using 4-0 Monocryl in an inverted interrupted fashion The skin was approximated with 3-0 PDS suture in an inverted interrupted fashion for the deep dermis followed by approximation of the superficial dermis and epidermis with a 4-0 Monocryl in a runningsubcuticular fashion. Incision was cleaned, dried and Dermabond was applied Patient tolerated the procedure well. Debridement was done as per protocol. All counts were correctin terms of needles, instruments and sponges. Patient was safely awakened and transferred from the operating room to the PACU for postoperative care. Please disregard any typographical errors. This note was partially dictated using voice recognitionsoftware. documented in this [facility]11-21-2023 Note* Perioperative Nursing Note - Yvette Rico RN - 05/20/2023 12:50 PM EST Patient ambulated in hallway and tolerated well. Peripheral IV removed without complication. Discharge instructions reviewed with patient. All questions answered. Patient verbalized understanding of instructions received. Discharge packet given to patient. Patient denies pain. Denies dizziness and nausea. Patient declined to receive discharge medications as he states he has them at home. All belongings taken with patient on discharge. [facility] [id number] Note* Perioperative Nursing Note - Yvette Rico RN - 05/20/2023 12:50 PM EST Patient ambulated in hallway and tolerated well. Peripheral IV removed without complication. Discharge instructions reviewed with patient. All questions answered. Patient verbalized understanding of instructions received. Discharge packet given to patient. Patient denies pain. Denies dizziness and nausea. Patient declined to receive discharge medications as he states he has them at home. All belongings taken with patient on discharge. [place] [id number] Note* Perioperative Nursing Note - Yvette Rico RN - 05/20/2023 12:30 PM EST Family/visitor updated and at bedside with patient. [place] [id number] Note* Perioperative Nursing Note - Yvette Rico RN - 05/20/2023 12:30 PM EST Family/visitor updated and at bedside with patient. [place] [id number] Hospital Discharge instructions* Discharge Instructions* Sindhu Espinosa MD - 05/20/2023 12:27 PM EST OK to shower and get incision wet tomorrow. Do not scrub at incision and no submerging in water. Pat dry. Dermabond glue will act as a dressing. Take tylenol/Motrin around the clock every 6 hours forthe first 48 hours for pain. After 48 hours you may take as needed. Follow up with Dr. Jaffe in 2 weeks, call office to schedule. Call office with questions/concerns. 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 Sindhu Espinosa MD Procedure Summary Anesthesia: Choice ASA: II Estimated Blood Loss: 2 mL Total IV Fluids: 200 for the mL Drains: * None in log * Specimens ID Source Type Tests Collected By Collected At Frozen? Priority Lab ID 1 Forehead Tissue TISSUE EXAM Nasrin Jaffe MD 05/20/23 1203 No [id number] Description: FOREHEAD SOFT TISSUE Staff: Card Feeder: Isadora Rico RN Relief Card Feeder: Neelam Farooq RN Scrub Person: Jenny Meade RN Sugical S[employer] Business Analyst Student: Xi Guerrero Indications: Neal Larios is [...] and hematoma formation as well as scarring withhypertrophic or keloidal scar. All patient questions were answered to his satisfaction. Patient signed informed consent. Technical details: Patient was subsequently taken to the operating room. He was placed in the supine position. After induction of MAC anesthesia the area was marked for excision in an transverse elliptical fashion 2 cmlong and 5 mm wide along the lateral skin crease lines Area was infiltrated with 3 cc of quarter percent Marcaine with epinephrine. We waited for a few minutes until the blanching of palpable epinephrine was appreciated. Using a 15 blade knife incision was made through the skin ellipse down to the subcutaneous tissue. Using a coagulating Bovie incisionwas taken down through the subcutaneous tissue until the frontalis muscle was encountered. The frontalis muscle was split lateral to the fibers in the longitudinal direction. At that point it was encapsulated lipoma was encountered. Excision of the lipoma was performed witha coagulating Bovie by dissecting in the loops of yellow tissue outside the to the lipoma. Lipoma was found to be deep and attached to the underlying periosteum. Lipoma capsule was dissected from theunderlying periosteum. Hemostasis was achieved with the coagulating Bovie. Frontalis muscle was approximated in the longitudinal fashion using 4-0 Monocryl in an inverted interrupted fashion The skin was approximated with 3-0 PDS suture in an inverted interrupted fashion for the deep dermis followed by approximation of the superficial dermis and epidermis with a 4-0 Monocryl in a runningsubcuticular fashion. Incision was cleaned, dried and Dermabond was applied Patient tolerated the procedure well. Debridement was done as per protocol. All counts were correctin terms of needles, instruments and sponges. Patient was safely awakened and transferred from the operating room to the PACU for postoperative care. Please disregard any typographical errors. This note was partially dictated using voice recognitionsoftware. 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 Sindhu Espinosa MD Procedure Summary Anesthesia: Choice ASA: II Estimated Blood Loss: 2 mL Total IV Fluids: 200 for the mL Drains: * None in log * Specimens ID Source Type Tests Collected By Collected At [facility]? Priority Lab ID 1 Forehead Tissue TISSUE EXAM Nasrin Jaffe MD 05/20/23 1203 No [id number] Description: FOREHEAD SOFT TISSUE Staff: Card Feeder: Isadora Rico RN Relief Card Feeder: Neelam Farooq RN Scrub Person: Jenny Meade RN Sugical [employer] Business Analyst Student: Xi Guerrero Indications: Neal Larios is [...] and hematoma formation as well as scarring withhypertrophic or keloidal scar. All patient questions were answered to his satisfaction. Patient signed informed consent. Technical details: Patient was subsequently taken to the operating room. He was placed in the supine position. After induction of MAC anesthesia the area was marked for excision in an transverse elliptical fashion 2 cmlong and 5 mm wide along the lateral skin crease lines Area was infiltrated with 3 cc of quarter percent Marcaine with epinephrine. We waited for a few minutes until the blanching of palpable epinephrine was appreciated. Using a 15 blade knife incision was made through the skin ellipse down to the subcutaneous tissue. Using a coagulating Bovie incisionwas taken down through the subcutaneous tissue until the frontalis muscle was encountered. The frontalis muscle was split lateral to the fibers in the longitudinal direction. At that point it was encapsulated lipoma was encountered. Excision of the lipoma was performed witha coagulating Bovie by dissecting in the loops of yellow tissue outside the to the lipoma. Lipoma was found to be deep and attached to the underlying periosteum. Lipoma capsule was dissected from theunderlying periosteum. Hemostasis was achieved with the coagulating Bovie. Frontalis muscle was approximated in the longitudinal fashion using 4-0 Monocryl in an inverted interrupted fashion The skin was approximated with 3-0 PDS suture in an inverted interrupted fashion for the deep dermis followed by approximation of the superficial dermis and epidermis with a 4-0 Monocryl in a runningsubcuticular fashion. Incision was cleaned, dried and Dermabond was applied Patient tolerated the procedure well. Debridement was done as per protocol. All counts were correctin terms of needles, instruments and sponges. Patient was safely awakened and transferred from the operating room to the PACU for postoperative care. Please disregard any typographical errors. This note was partially dictated using voice recognitionsoftware. [facility]11-03-2023 Telephone encounter Note* Telephone Encounter - Chanell Gomez MA - 05/02/2023 10:31 AM EDT Notified, scheduled, orders pended. [id number] Telephone encounter Note* Telephone Encounter - Chanell Gomez MA - 05/02/2023 10:31 AM EDT ----- Message from KEYONA Fierro CNP sent at 05/02/2023 10:03 AM EDT ----- CMP-normal kidney and liver functioning HIV negative Hepatitis C negative Lipid panel-total cholesterol elevated at 213, HDL good at 43, triglycerides are good at 104, LDL cholesterol is elevated at 148, recommend strict low-fat low- cholesterol diet and rechecking in 4 weeks, at that time if still elevated would recommend starting cholesterol medication [place] [id number] Miscellaneous Notes* Telephone Encounter - Chanell Gomez MA - 05/02/2023 10:31 AM EDT Notified, scheduled, orders pended. * Telephone Encounter - Chanell Gomez MA - 05/02/2023 10:31 AM EDT ----- Message from KEYONA Fierro CNP sent at 05/02/2023 10:03 AM EDT ----- CMP-normal kidney and liver functioning HIV negative Hepatitis C negative Lipid panel-total cholesterol elevated at 213, HDL good at 43, triglycerides are good at 104, LDL cholesterol is elevated at 148, recommend strict low-fat low- cholesterol diet and rechecking in 4 weeks, at that time if still elevated would recommend starting cholesterol medication documented in this [facility]11-02-2023 History of Present illness Narrative* Chanell Gomez MA - 05/01/2023 9:20 AM EDT Verified by name and . * Mare Robb, BOILER PLANT WORKER - AUTOMATION QTP TESTER - 05/01/2023 9:20 AM EDT Images from the original note were not included. 05/01/2023 Annamarie Larios (: 1990) is a 32 y.o. male , Established patient, here for evaluation ofthe following chief complaint(s): Annual Exam, Health Maintenance (HIV Screening-agrees/COVID-19 Vaccine- none/DTaP/Tdap/Td Vaccines-states he had one in 2014/Varicella Vaccines-had chicken pox as a child/Hepatitis C Screening-agrees/Hepatitis B Vaccines- declines/Meningococcal Vaccine-declines/Influenza Vaccine-declines), and Blood W ork ASSESSMENT/PLAN: 1. Annual physical exam - Lipid [...] complaint(s): Annual Exam, Health Maintenance (HIV Screening-agrees/COVID-19 Vaccine- none/DTaP/Tdap/Td Vaccines-states he had one in 2014/Varicella Vaccines-had chicken pox as a child/Hepatitis C Screening-agrees/Hepatitis B Vaccines- declines/Meningococcal Vaccine-declines/Influenza Vaccine-declines), and Blood W ork Presents today for annual exam, has no acute complaints. Lives at home with his daughter who is in third grade and reports everything is going well. Work is doing well at the [employer]- 6.5 years. .Has scheduled with plastic surgery to have a soft tissue mass removed from the forehead in June.Reports that he did have a rash around [...] CNP 05/01/2023 1:54 PM documented in this [facility]11-01-2023 Telephone encounter Note* Telephone Encounter - Stefania Pena - 04/30/2023 2:28 PM EDT Case# [id number] Procedure: excision soft tissue mass of the right forehead intermediate versus complex closure Sx Date: 05/20/23 Time: 1 HOUR Location: [facility] 2 PM Anesthesia: GENERAL OR MAC CPT: 63293,[id number] ICD-10: M79.89 Special Equipment: PAT: SAME DAY HP PCNR PER PRE CERT TOOL ON AVAILITY [facility] [id number] Miscellaneous Notes* Telephone Encounter - Stefania Pena - 04/30/2023 2:28 PM EDT Case# [id number] Procedure: excision soft tissue mass of the right forehead intermediate versus complex closure Sx Date: 05/20/23 Time: 1 HOUR Location: [facility] 2 PM Anesthesia: GENERAL OR MAC CPT: 93196,28709,86150 ICD-10: M79.89 Special Equipment: PAT: SAME DAY HP PCNR PER PRE CERT TOOL ON AVAILITY * Telephone Encounter - Stefania Pena - 04/30/2023 2:27 PM EDT ----- Message from Edwina Delaney PA-C sent at 04/30/2023 1:55 PM EDT ----- Stefania, This patient is to be scheduled for excision soft tissue mass of the right forehead intermediate versus complex closure under local anesthesia an outpatient at [place]. We will need 1 hour. Thank you Edwina East PA-C documented in this encounterSLutheran [id number] Telephone encounter Note* Telephone Encounter - Stefania Pena - 04/30/2023 2:27 PM EDT ----- Message from Edwina Delaney PA-C sent at 04/30/2023 1:55 PM EDT ----- Stefania, This patient is to be scheduled for excision soft tissue mass of the right forehead intermediate versus complex closure under local anesthesia an outpatient at [place]. We will need 1 hour. Thank you Edwina East PA-C [facility] [id number] History of Present illness Narrative* Edwina Delaney PA-C - 04/30/2023 1:30 PM EDT Department of Plastic Surgery - Adult Attending [...] hyperactivity disorder) Eczema IBS (irritable bowel syndrome) [place] exposure MRSA (methicillin resistant staph aureus) culture positive Substance abuse ([facility]) ([facility]) Past Surgical History: Past Surgical History: Procedure [...] under local anesthesia as an outpatient at [facility]. The orders are in. -The risks, benefits and options were discussed with the pt. The risks included but not limited to pain, bleeding, infection, heavy scarring, damage to surrounding structures, fluid collections, asymmetry, and need for further procedures. All of His questions were answered to their satisfaction andHe agrees to proceed with the procedure. Our office to contact patient regarding scheduling surgery. Photos obtained The physician was present, and has seen and examined the patient at the bedside with me. Edwina East PA-C documented in this [facility]10-30-2023 Telephone encounter Note* Telephone Encounter - Chanell Gomez MA - 04/28/2023 10:07 AM EDT Scheduled. [facility] [id number] Miscellaneous Notes* Telephone Encounter - Chanell Gomez MA - 04/28/2023 10:07 AM EDT Scheduled. * Telephone Encounter - Chanell Gomez MA - 04/25/2023 11:52 AM EDT Images from the original note were not included. KEYONA Parker CNP 04/25/23 11:50 AM Note Rx sent with no refills. Due for annual physical next month- please schedule. Left a message to return call. * Telephone Encounter - KEYONA Parker CNP - 04/25/2023 11:50 AM EDT Rx sent with no refills. Due for annual physical next month- please schedule. * Telephone Encounter - Chen Wang MA - 04/25/2023 10:59 AM EDT Prescription Request: Last medication check: 04/12/19 Last physical exam: 05/02/22 Next scheduled appointment: none Last date of refill on this medication 05/02/22 60 with 5 refills documented in this [facility]10-27-2023 Telephone encounter Note* Telephone Encounter - Jayne Zaldivar - 04/25/2023 1:19 PM EDT Message released to patient as written. Patient Verbalized Understanding Patient's further questions if applicable: None Patient is scheduled for Physical Were all questions from office addressed or relayed to the patient from encounter: Yes [facility] HospitalStcjwl20-52-0521 Miscellaneous Notes* Telephone Encounter - Jayne Kayley - 04/25/2023 1:19 PM EDT Message released to patient as written. Patient Verbalized Understanding Patient's further questions if applicable: None Patient is scheduled for Physical Were all questions from office addressed or relayed to the patient from encounter: Yes documented in this encounterSLutheran [id number] Telephone encounter Note* Telephone Encounter - Chanell Gomez MA - 04/25/2023 11:52 AM EDT Images from the original note were not included. KEYONA Parker CNP 04/25/23 11:50 AM Note Rx sent with no refills. Due for annual physical next month- please schedule. Left a message to return call. [facility] [id number] Miscellaneous Notes* Telephone Encounter - Chanell Gomez MA - 04/25/2023 11:52 AM EDT Images from the original note were not included. KEYONA Parker CNP 04/25/23 11:50 AM Note Rx sent with no refills. Due for annual physical next month- please schedule. Left a message to return call. * Telephone Encounter - KEYONA Parker CNP - 04/25/2023 11:50 AM EDT Rx sent with no refills. Due for annual physical next month- please schedule. * Telephone Encounter - Chen Wang MA - 04/25/2023 10:59 AM EDT Prescription Request: Last medication check: 04/12/19 Last physical exam: 05/02/22 Next scheduled appointment: none Last date of refill on this medication 05/02/22 60 with 5 refills documented in this encounterSLutheran [id number] Telephone encounter Note* Telephone Encounter - KEYONA Parker CNP - 04/25/2023 11:50 AM EDT Rx sent with no refills. Due for annual physical next month- please schedule. [facility] HospitalOjdppw77-22-5516 Telephone encounter Note* Telephone Encounter - Chen Wang MA - 04/25/2023 10:59 AM EDT Prescription Request: Last medication check: 04/12/19 Last physical exam: 05/02/22 Next scheduled appointment: none Last date of refill on this medication 05/02/22 60 with 5 refills [facility] [id number] Telephone encounter Note* Telephone Encounter - Liz Corley MA - 10/24/2022 2:52 PM EDT Patient cannot make it in during any of your openings today and will keep scheduled appointment tomorrow. [address]acjwv03-79-0903 Miscellaneous Notes* Telephone Encounter - Liz Corley MA - 10/24/2022 2:52 PM EDT Patient cannot make it in during any of your openings today and will keep scheduled appointment tomorrow. * Telephone Encounter - KEYONA Fierro CNP - 10/24/2022 2:45 PM EDT He will need to be seen in office. * Telephone Encounter - Malena Polanco RN - 10/24/2022 1:47 PM EDT S: Patient called the clinical access center [...] to get a hold of dentist in [place]. Face is not as swollen as it [...] Toothache present > 24 hours Protocols used: Spqkwonno-ZECBQ-CO 3/10 pain, wants to get infection taken care of and requesting antibiotic or if he needs seen. Rootcanal 3-4 months ago on that tooth and assuming unsuccessful documented in this [facility]04-27-2023 Telephone encounter Note* Telephone Encounter - KEYONA Fierro CNP - 10/24/2022 2:45 PM EDT He will need to be seen in office. [employer] Work Phone: [phone] 262-677704-27-2023 Telephone encounter Note* Telephone Encounter - Malena Polanco RN - 10/24/2022 1:47 PM EDT S: Patient called the clinical access center [...] to get a hold of dentist in [place]. Face is not as swollen as it [...] Toothache present > 24 hours Protocols used: Fphxydejp-ZNSUS-GS 3/10 pain, wants to get infection taken care of and requesting antibiotic or if he needs seen. Rootcanal 3-4 months ago on that tooth and assuming unsuccessful [id number] NoteHNO ID: [id number] Author: Didier Kilgore APRN.DAT Service: ? Author Type: Nurse Practitioner Type: [...] (attention deficit hyperactivity disorder) Bipolar 1 disorder ([facility]) Eczema Hx MRSA infection IBS (irritable bowel syndrome) Substance abuse ([facility]) No past surgical history on file. ALLERGIES [...] swelling or pain on movement. Mouth/Throat: Lips: Villarreal. Mouth: Mucous membranes are moist. Pharynx: Oropharynx [...] of care. This note was generated using [employer] software. It may contain errors in wording, punctuation, or spelling. Didier Kilgore APRN.DATMetrohealth Parma [facility] Center04-24-2023 History of Present illness Narrative* Didier Kilgore APRN.DAT - 10/21/2022 8:47 AM EDT Subjective HPI Nontoxic-appearing male presents urgent care chief complaint URI-like symptoms. Duration of symptoms 1 day. Associated symptoms cough headache body aches sore throat. Duration of symptoms upon arising. Associated symptoms as above. Presents today for rule out of strep throat. States daughter testedpositive for strep throat yesterday. No other known sick contacts. Did not use any OTC medications.Denies any fever chills productive cough chest pain shortness of breath pleuritic pain hemoptysis nausea vomiting abdominal pain change in bowel or bladder habits. Past medical history prescription medication use and allergies reviewed. .Patient presents with: Sore Throat: Cough, MENDOZA, body aches started this morning PAST MEDICAL HISTORY Diagnosis Date ADHD (attention deficit hyperactivity disorder) Bipolar 1 disorder ([facility]) Eczema Hx MRSA infection IBS (irritable bowel syndrome) Substance abuse ([facility]) No past surgical history on file. ALLERGIES [...] swelling or pain on movement. Mouth/Throat: Lips: Villarreal. Mouth: Mucous membranes are moist. Pharynx: Oropharynx [...] of care. This note was generated using [employer] software. It may contain errors in wording, punctuation, or spelling. Didier Kilgore APRN.DAT documented in this encounterKindred Hospital Lima03-25-2023 NoteHNO ID: [id number] Author: Iain Lobo PA-C Service: ? Author Type: Physician Talent Development Coordinator Type: Progress Notes Filed: 09/21/2022 10:31 AM Note Text: This note was created using [employer]. Subjective Annamarie Larios is a 32 year [...] (attention deficit hyperactivity disorder) Bipolar 1 disorder ([facility]) Eczema Hx MRSA infection IBS (irritable bowel syndrome) Substance abuse ([facility]) Current Outpatient Medications Medication Sig Dispense Refill [...] symptoms - STREP A MOLECULAR (POC) [facility]03-25-2023 History of Present illness Narrative* Iain Lobo PA-C - 09/21/2022 10:27 AM EDT This note was created using [employer]. Subjective Annamarie Larios is a 32 year old male. HPI Patient presents with sore throat, cough, over the past 5 days. No fever. He states the sore throatis his worst symptom. No diarrhea or vomiting. [...] (attention deficit hyperactivity disorder) Bipolar 1 disorder ([facility]) Eczema Hx MRSA infection IBS (irritable bowel syndrome) Substance abuse ([facility]) Current Outpatient Medications Medication Sig Dispense Refill [...] (POC) Iain Lobo PA-C documented in this encounterKindred Hospital Lima10-31-2022 History of Present illness Narrative* Dora Sexton PA-C - 04/29/2022 12:10 PM EDT 04/29/2022 Patient presents with: Fatigue: nausea, bodyaches [...] infection IBS (irritable bowel syndrome) Substance abuse ([facility]) ALLERGIES Cephlasporins [Cephalosporins] and Penicillins MEDICATIONS Current [...] sooner. Dora Sexton PA-C documented in this encounterKindred Hospital Lima08-09-2022 History of Present illness Narrative* Jj Barry APRN.AUTOMATION QTP TESTER - 02/05/2022 7:30 PM EDT Images from the original note were not [...] infection IBS (irritable bowel syndrome) Substance abuse ([facility]) No past surgical history on file. ALLERGIES [...] TOPICAL CREAM Agrees to plan Jj Barry APRN.DAT [facility]* Diagnosis COVID-19 documented in this encounter [facility] Work Phone: Evaluation noteNo assessment information available [facility] Work Phone: Evaluation note* Diagnosis Rash- Primary Rash and other nonspecific skin eruption documented in this encounter [facility]* Diagnosis Nausea- Primary Nausea alone documented in this encounter [facility] note* Diagnosis Viral URI- Primary Acute upper respiratory infections of unspecified site documented in this encounter [facility] note* Diagnosis Sore throat- Primary Acute pharyngitis Viral URI Acute upper respiratory infections of unspecified site documented in this encounter [facility] note* Diagnosis Mass of soft tissue of face- Primary Other specified soft tissue disorders [facility]* Diagnosis Annual physical exam- Primary Routine general medical examination at a health care facility Need for hepatitis C screening test Special screening examination for other specified viral diseases Screening for HIV (human immunodeficiency virus) Special screening examination for other specified viral diseases Screening for lipid disorders Other specified soft tissue disorders documented in this encounter [facility] note* Diagnosis Mixed hyperlipidemia- Primary Other specified soft tissue disorders documented in this encounter [facility] note* Diagnosis Mass of soft tissue of face- Primary Other specified soft tissue disorders [facility]* Diagnosis Mixed hyperlipidemia- Primary documented in this encounter [facility] note* Diagnosis Strep throat- Primary Streptococcal sore throat documented in this encounter [facility] note* Diagnosis Annual physical exam- Primary Routine [...] depression type- Primary [facility] Additional Instructions Follow-up with your PCP and return for any worsening of your symptoms.[facility] Work Phone: Hospital Discharge instructionsAdditional Instructions follow up with ophthalmology within one week to evaluate right subconjuctival hemorrhageWAultman Hospital Work Phone: Reason for referral (narrative)No reason for referral information availableWAultman Hospital Work Phone: Summary Purpose Family History No Family History Records FoundNo Family History Records FoundNo Family History Records FoundNo Family History Records FoundNo Family History Records Found Advance Directives No Advanced Directives Records FoundDocuments on File Type Date Recorded Patient Blueprint Trimmer Expl anation ACP-Advance Directive ACP-Power of Mailroom Manager Advance Directive Response Recorded Date/ Time Living Will No January 19, 2022 4:45pm Power of Mailroom Manager No January 19 4:45pm Advance Directive Response Recorded Date/ Time Living Will No April 19 6:31pm Power of Mailroom Manager No April 19, 2023 6:31pm Latest Code Status on File Code Status Date Activated Date Inactivated Comments Full Code 05/20/2023 9:02 AM 05/20/2023 3:03 PM Latest Code Status on File Code Status Date Activated Date Inactivated Comments Full Code 05/20/2023 9:02 AM 05/20/2023 3:03 PM Date Activated Date Inactivated Comments 05/20/2023 9:02 AM 05/20/2023 3:03 PM Advance Directive Response Recorded Date/ Time Do you have a Healthcare Power of Mailroom Manager? No February 13, 2025 3:06pm Advance Directive Response Recorded Date/ Time Do you have a Healthcare Power of Mailroom Manager? No February 13, 2025 7:35pm Chief Complaint and Reason for Visit Chief Complaint RASH Chief Complaint allegic Chief Complaint Admit Date ALCOHOL DETOX February 13, 2025 6: 49pm Chief Complaint Admit Date ALCOHOL DETOX February 13, 2025 6: 49pm ALCOHOL DETOX February 14, 2025 11 :28am ALCOHOL DETOX February 15, 2025 12 :05pm Reason for Visit Admit Date Alcohol withdrawal February 13, 2025 6: 49pm Subconjunctival hemorrhage of right eye February 13, 2025 6:49pm Additional Source Comments (unrecognized sect ion and content) No Status Records FoundNo Status Records FoundNo Status Records FoundNo Status Records FoundNo Status Records Found INFORMATION SOURCE (unrecogn ized section and content) DATE CREATED AUTHOR 02/22/2019 [facility] DATE CREATED AUTHOR AUTHOR'S ORGANIZ ATION 06/15/2021 [facility] DATE CREATED AUTHOR AUTHOR'S ORGANIZ ATION 08/15/2023 [facility] DATE CREATED AUTHOR AUTHOR'S ORGANIZ ATION 08/06/2024 [facility] DATE CREATED AUTHOR AUTHOR'S ORGANIZ ATION 03/20/2025 [facility] Care Teams (unrecognized sec tion and content) Change Control Analyst Relationship Specialty Start Date End Date Nikita Sorensen MD [address] [facility], [place] [address] PCP - General Family Medicine 06/05/15 Change Control Analyst Relationship Specialty Start Date End Date Nikita Sorensen [address] [facility], [place] [id number] PCP - General Family Practice 01/29/12 Change Control Analyst Relationship Specialty Start Date End Date Nikita Sorensen [address] [facility] [place] [address] PCP - General Family Medicine 01/29/12 Change Control Analyst Relationship Specialty Start Date End Date Nikita Sorensenoy [address] [facility] [place] [address] PCP - General Family Medicine 01/29/12 Change Control Analyst Relationship Specialty Start Date End Date Nikita Sorensen [address] [facility] [place] [address] PCP - General Family Medicine 01/29/12 Change Control Analyst Relationship Specialty Start Date End Date Nikita Sorensen MD [address] [place] [id number] PCP - General 06/05/15 Team Status: Active Member Role Status Dates Dr. Nikita Sorensen MD Family Provider Active Dr. Nikita Sorensen MD Primary Care Provider Active Team Status: Inactive Member Role Status Dates Dr. Nikita Sorensen MD Primary Care Provider Active Jero Mancia MD Emergency Provider Active Change Control Analyst Relationship Specialty Start Date End Date Nikita Sorensen MD [address] [place] [address], [place] [address] PCP - General 06/05/15 Change Control Analyst Relationship Specialty Start Date End Date Nikita Sorensen MD [address] [place] [address], [place] [address] PCP - General 06/05/15 Change Control Analyst Relationship Specialty Start Date End Date Nikita Sorensen MD [address] [facility] [place] [address] PCP - General 06/05/15 Change Control Analyst Relationship Specialty Start Date End Date Nikita Sorensen MD [address] [facility] [place] [address] PCP - General 06/05/15 Change Control Analyst Relationship Specialty Start Date End Date Nikita Sorensen MD [address] [facility] [place] [address] PCP - General 06/05/15 Change Control Analyst Relationship Specialty Start Date End Date Nikita Sorensen MD [address] [facility] [place] [address] PCP - General 06/05/15 Change Control Analyst Relationship Specialty Start Date End Date Nikita Sorensen MD [address] [facility] [address] PCP - General 06/05/15 Change Control Analyst Relationship Specialty Start Date End Date Nikita Sorensen MD [address] [facility] [place] [address] PCP - General 06/05/15 Change Control Analyst Relationship Specialty Start Date End Date Nikita Sorensen MD [address] [facility] [place] [address] PCP - General 06/05/15 Change Control Analyst Relationship Specialty Start Date End Date Nikita Sorensen [address] [place] [address] [place] [address] PCP - General Family Medicine 01/29/12 Change Control Analyst Relationship Specialty Start Date End Date Nikita Sorensen MD [address] [place] [address] [address] [facility] [place] [address] PCP - General 06/05/15 Team Status: Active Member Role/Relationship Status Dates Dr. Nikita Sorensen MD Primary Care Provider Active Team Status: Active Member Role/Relationship Status Dates Dr. Nikita Sorensen MD Primary Care Provider Active Start: February 13, 2025 Dr. Deep Holman DO Emergency Provider Active Start: February 13, 2025 Dr. Xochilt De Jesus MD Admit Provider Active Star t: February 13, 2025 Dr. Xochilt De Jesus MD Attending Provider Active Start: February 13, 2025 Team Status: Inactive Member Role/Relationship Status Dates Dr. Nikita Sorensen MD Primary Care Provider Active Start: February 13, 2025 End: February 16, 2025 Dr. Deep Holman DO Emergency Provider Active Start: February 13, 2025 End: February 16, 2025 Dr. Xochilt De Jesus MD Admit Provider Active Star t: February 13, 2025 End: February 16, 2025 Dr. Xochilt De Jesus MD Other Provider Active Star t: February 13, 2025 End: February 16, 2025 Dr. Angela Chau MD Attending Provider Active Start: February 13, 2025 End: February 16, 2025 Team Status: Active Member Role/Relationship Status Dates Dr. Nikita Sorensen MD Primary Care Provider Active Start: February 14, 2025 Dr. Deep Holman DO Emergency Provider Active Start: February 14, 2025 Dr. Xochilt De Jesus MD Admit Provider Active Star t: February 14, 2025 Dr. Xochilt De Jesus MD Other Provider Active Star t: February 14, 2025 Dr. Angela Chau MD Attending Provider Active Start: February 14, 2025 Dr. Angela Chau MD Other Provider Active St art: February 14, 2025 Team Status: Active Member Role/Relationship Status Dates Dr. Nikita Sorensen MD Primary Care Provider Active Start: February 14, 2025 Dr. Karo Cleaning MD Attending Provider Active S tart: February 14, 2025 Team Status: Active Member Role/Relationship Status Dates Dr. Nikita Sorensen MD Primary Care Provider Active Start: February 15, 2025 Dr. Deep Holman DO Emergency Provider Active Start: February 15, 2025 Dr. Xochilt De Jesus MD Admit Provider Active Star t: February 15, 2025 Dr. Xochilt De Jesus MD Other Provider Active Star t: February 15, 2025 Dr. Angela Chau MD Attending Provider Active Start: February 15, 2025 Dr. Angela Chau MD Other Provider Active St art: February 15, 2025 Goals (unrecognized section and content) Goals may be documented in a n alternate sectionGoals may be documented in an alternate sectionGoals may be documented in an alternate section Source Comments (unrecognize d section and content) In the event this informatio n is protected by the Federal Confidentiality of Alcohol and Drug Abuse Patient Records regulations: The Federal rules restrict any use of the information to criminally investigate or prosecute any alcohol or drug abuse patient.[facility] the event this information is protected by the Federal Confidentiality of Alcohol and Drug Abuse Patient Records regulations: The Federal rules restrict any use of the information to criminally investigate or prosecute any alcohol or drug abuse patient.[facility] the event this information is protected by the Federal Confidentiality of Alcohol and Drug Abuse Patient Records regulations: The Federal rules restrict any use of the information to criminally investigate or prosecute any alcohol or drug abuse patient.[facility] the event this information is protected by the Federal Confidentiality of Alcohol and Drug Abuse Patient Records regulations: The Federal rules restrict any use of the information to criminally investigate or prosecute any alcohol or drug abuse patient.[facility] the event this information is protected by the Federal Confidentiality of Alcohol and Drug Abuse Patient Records regulations: The Federal rules restrict any use of the information to criminally investigate or prosecute any alcohol or drug abuse patient.[facility] Reason for Visit (unrecogniz ed section and [...] 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] Procedures MN EXC B9 LES MRGN XCP SK TG F/E/E/N/L/M 1.1-2.0CM MN REPAIR INTERMEDIATE F/E/E/N/L&/MUC 2.5 CM/< MN REPAIR COMPLEX F/C/C/M/N/AX/G/H/F 1.1-2.5 CM EXCISION OF SOFT TISSUE MASS OF THE RIGHT FOREHEAD WITH IMMEDIATE VERSUS COMPLEX CLOSURE REPAIR INTERMEDIATE WOUNDS OF FACE EARS EYELIDS NOSE LIPS MUCOUS MEMBRANES 2.5 CM OR LESS REPAIR COMPLEX WOUND OF FOREHEAD CHEEK CHIN MOUTH NECK AXILLAE GENITALIA HANDS FEET 1.1 TO 2.5 CM Nasrin Jaffe MD [address] [place] [id number] [facility] [address] [place] [address] Referral ID Status Reason Start Date Expiration Date Visits Re quested Visits Authorized [id number] 1 Reason Comments Fever chills, cough [...] not necessary. bupivacaine-EPINEPHrine PF (Marcaine w/EPI) 0.25% -1:[id number] injection (CANCELED) As needed, Starting on Fri05/20/23 [...] BE BASED ON THE PRIMARY CLINICAL RECORDS. [facility]. provides no warranty or guarantee of the accuracy or completeness of information in this document.
--- NOTE | 2025-04-01 07:16 | PN.HOSP_ITS ---
Reason for Visit Chief Complaint: EtOH detoxification request. Subjective Subjective Patient is a 34-year-old gentleman with history of chronic alcohol dependence admitted with desire to undergo detox Objective Data Objective Data Vital Signs: Vital Signs Temp Pulse Resp BP Pulse Ox O2 Del Method 97.4 F L 92 16 138/93 H 97 Room Air 03/31/25 23:11 03/31/25 23:31 03/31/25 23:11 03/31/25 23:11 03/31/25 23:11 03/31/25 23:11 Oxygen Delivery Method Room Air Weight: 90.718 kg Body Mass Index (BMI) 29.5 Lab / Micro Data 03/31/25 21:13 03/31/25 21:13 Labs: Laboratory Results - last 24 hr 03/31/25 20:50: Urine Opiates Screen NEGATIVE, U Buprenorphine Qual NEGATIVE, Ur Oxycodone Screen NEGATIVE, Urine Methadone Screen NEGATIVE, Urine Fentanyl Screen NEGATIVE, Ur Barbiturates Screen NEGATIVE, Ur Phencyclidine Scrn NEGATIVE, Ur Amphetamines Screen NEGATIVE, U Benzodiazepines Scrn NEGATIVE, Urine Cocaine Screen NEGATIVE, U Cannabinoids Screen NEGATIVE 03/31/25 21:13: WBC 12.5 H, RBC 5.62, Hgb 16.2, Hct 47.5, MCV 84.5, MCH 28.8, MCHC 34.1, RDW Std Deviation 43.5, RDW Coeff of Rhianna 14.2, Plt Count 607 H, MPV 9.9, Immature Gran % (Auto) 0.200, Neut % (Auto) 38.0 L, Lymph % (Auto) 43.0 H, [place] % (Auto) 15.6 H, Eos % (Auto) 1.6, Baso % (Auto) 1.6 H, Absolute Neuts (auto) 4.8, Absolute Lymphs (auto) 5.38 H, Nucleated RBC % 0, Differential Comment SCANNED, Sodium 143, Potassium 3.8, Chloride 100, Carbon Dioxide 26.2, A nion Gap 18 H, BUN 10, Creatinine 1.01, Estim Creat Clear Calc 116.66, Est GFR (MDRD) Non-Af 99, BUN/Creatinine Ratio 9.7 L, Glucose 119 H, Calcium 9.3, Phosphorus 3.9, Magnesium 2.2, Total Bilirubin 0.47, Direct Bilirubin 0.15, AST 54 H, ALT 47, Alkaline Phosphatase 73, Total Protein 7.9, Albumin 4.5, Globulin 3.4, Ethyl Alcohol 289.0 H Physical Exam Narrative GENERAL: cooperative HEENT: Atraumatic; normocephalic EYES; Anicteric, Normal Conjunctiva NECK; supple, normal thyroid, RESPIRATORY: Diminished to auscultation CARDIOVASCULAR: Regular S1 S2, GI: soft, normoactive bowel sounds, : No Renal angle tenderness; EXTREMITIES: No edema, no clubbing, MUSCULOSKELETAL: no muscle wasting NEURO: Awake; no lateralizing signs. SKIN: No Rash PSYCH; Flat affect Assessment & Plan Assessment/Plan (1) Desire for detoxification: PLAN: Plan 34-year-old gentleman with history of chronic alcohol dependence presented to the emergency department with desire to undergo detox 1. Chronic alcohol abuse at risk for alcohol withdrawal - Patient has been admitted for treatment with phenobarb taper in addition to adjuvant medications including gabapentin, Bentyl, hydroxyzine and clonidine as needed for alcohol withdrawal symptoms. Patient was also placed on thiamine and folic acid Consultation placed to 180 counseling services 2. Depression with anxiety Pain is on olanzapine 3. Tobacco dependence ? Counseled on cessation, offered nicotine patch for tobacco cravings 4. Hypertension ? Blood pressure controlled, home medications continued with dose adjustment as needed 5. Thrombocytosis ? Patient platelet count has fluctuated in the past we will continue with monitoring 6. DVT prophylaxis ? Low risk encourage ambulation Time spent in the patient's overall evaluation,decision-making process, review of diagnostic data, adjustment of management, discussion with other providers, nursing nursing and ancillary staff involved in patient's care documentation, 38 Minutes Charges/Coding Visit Charges Inpatient E&M: 35253 Subs Hosp L2
[2025-04-01] MEDS: Thiamine Hydrochloride 100 MG Tablet PO (10:25)
[2025-04-01] MEDS: Nicotine (PBKC) 21 MG Patch TD (10:28)
--- NOTE | 2025-04-01 14:08 | CHAPLAIN ---
Type of Pastoral Visit _x__ Initial Visit ___ Follow-up Visit ___ On-call Visit ___ General Patient Visit ___ Spiritual Assessment ___ Family Conference ___ Bereavement ___ Rapid Response ___ Code Blue ___ Other (describe below) Pastoral Care Referral From _x__ Patient ___ Family ___ Nurse ___ Physician ___ Bleach Tester ___ Bank Courier ___ Other (describe below) Sacrament/Intervention ___ Active listening ___ Anointing ___ Baptist ___ Bereavement ___ Communion ___ Cindy exploration ___ ___ Life review _x__ Prayer ___ Reconciliation ___ Sacrament of Sick _x__ Supportive presence ___ Wedding ___ Other (describe below) Pastoral Comments patient was sleeping but awakened to his name; pt is very groggy and welcomed a prayer and asked for a visit some other time; this mounted police will not be back to work until Friday and will probably not be available to this patient; prayer given
[2025-04-01] MEDS: 0.9% Saline Lock 10 ML Syringe IV (20:02)
[2025-04-02] VITALS (8 sets, daily range): BP systolic 127–149; BP diastolic 78–94; PULSE 68–102; RESP 14–16; TEMP 36.5–37.1; O2SAT 95–98
--- NOTE | 2025-04-02 07:32 | PCM.PN.HOSP ---
Reason for Visit Chief Complaint: EtOH detoxification request. Subjective Subjective Patient seen complains of some anxiety otherwise has tolerated phenobarb taper well so far. Objective Data Objective Data Vital Signs: Vital Signs Temp Pulse Resp BP Pulse Ox O2 Del Method 98.5 F 68 16 128/78 H 97 Room Air 04/02/25 06:59 04/02/25 06:59 04/02/25 06:59 04/02/25 06:59 04/02/25 06:59 04/02/25 06:59 Oxygen Delivery Method Room Air Weight: 90.718 kg Body Mass Index (BMI) 29.5 Intake & Output: Intake and Output for Last 24 Hours 03/31/25 04/01/25 04/02/25 23:59 23:59 23:59 Intake Total 2597.92 / 2597.92 0 / 0 Balance 2597.92 / 2597.92 0 / 0 Lab / Micro Data 03/31/25 21:13 03/31/25 21:13 Physical Exam Narrative GENERAL: cooperative HEENT: Atraumatic; normocephalic EYES; Anicteric, Normal Conjunctiva NECK; supple, normal thyroid, RESPIRATORY: Diminished to auscultation CARDIOVASCULAR: Regular S1 S2, GI: soft, normoactive bowel sounds, : No Renal angle tenderness; EXTREMITIES: No edema, no clubbing, MUSCULOSKELETAL: no muscle wasting NEURO: Awake; no lateralizing signs. SKIN: No Rash PSYCH; Flat affect Assessment & Plan Assessment/Plan (1) Desire for detoxification: PLAN: Plan 34-year-old gentleman with history of chronic alcohol dependence presented to the emergency department with desire to undergo detox 1. Chronic alcohol abuse at risk for alcohol withdrawal - Patient has been admitted for treatment with phenobarb taper in addition to adjuvant medications including gabapentin, Bentyl, hydroxyzine and clonidine as needed for alcohol withdrawal symptoms. Patient was also placed on thiamine and folic acid Consultation placed to 180 counseling services ? 04/02/2025;Patient seen complains of some anxiety otherwise has tolerated phenobarb taper well so far.. Will continue with current treatment regimen and observe for 1 more night 2. Depression with anxiety Pain is on olanzapine 3. Tobacco dependence ? Counseled on cessation, offered nicotine patch for tobacco cravings 4. Hypertension ? Blood pressure controlled, home medications continued with dose adjustment as needed 5. Thrombocytosis ? Patient platelet count has fluctuated in the past we will continue with monitoring 6. DVT prophylaxis ? Low risk encourage ambulation Time spent in the patient's overall evaluation,decision-making process, review of diagnostic data, adjustment of management, discussion with other providers, nursing nursing and ancillary staff involved in patient's care documentation, 35 Minutes Charges/Coding Visit Charges Inpatient E&M: 25907 Subs Hosp L2
[2025-04-02] MEDS: Nicotine (PBKC) 21 MG Patch TD (08:20)
[2025-04-02] MEDS: Thiamine Hydrochloride 100 MG Tablet PO (08:21)
[2025-04-02] MEDS: hydrOXYzine PAM 25 MG Capsule 50 MG PO (15:57)
--- NOTE | 2025-04-02 16:54 | ADDICTION ---
This typewriter repairer met with PT to conduct ASAM, MSE, AUDIT, DUDIT assessments and to plan for d/c. PT A+Ox4 and participated actively. All assessments completed. [facility]
[2025-04-02] MEDS: 0.9% Saline Lock 10 ML Syringe IV (22:48)
[2025-04-03 03:28] VITALS: BP 127/86; PULSE 58; RESP 16; TEMP 36.4; O2SAT 97
[2025-04-03 07:26] VITALS: BP 130/76; PULSE 66; RESP 16; TEMP 36.4; O2SAT 95; O2SAT 96
--- NOTE | 2025-04-03 07:45 | PCM.DC.SUM ---
Providers Date of Admission: 03/31/25 Primary Care Physician: Dr. Nikita Medina MD Reason For Visit: ETOH WITHDRAWL Diagnosis Discharge Diagnosis (1) Desire for detoxification: Status: Acute Plan 34-year-old gentleman with history of chronic alcohol dependence presented to the emergency department with desire to undergo detox 1. Chronic alcohol abuse at risk for alcohol withdrawal - Patient has been admitted for treatment with phenobarb taper in addition to adjuvant medications including gabapentin, Bentyl, hydroxyzine and clonidine as needed for alcohol withdrawal symptoms. Patient was also placed on thiamine and folic acid Consultation placed to 180 counseling services ? 04/02/2025;Patient seen complains of some anxiety otherwise has tolerated phenobarb taper well so far.. Will continue with current treatment regimen and observe for 1 more night ? 04/03/2025; patient assessed to be stable for discharge 2. Depression with anxiety Pain is on olanzapine 3. Tobacco dependence ? Counseled on cessation, offered nicotine patch for tobacco cravings 4. Hypertension ? Blood pressure controlled, home medications continued with dose adjustment as needed 5. Thrombocytosis ? Patient platelet count has fluctuated in the past we will continue with monitoring 6. DVT prophylaxis ? Low risk encourage ambulation Time spent in the patient's overall evaluation,decision-making process, review of diagnostic data, adjustment of management, discussion with other providers, nursing nursing and ancillary staff involved in patient's care documentation, 35 Minutes Medications at Discharge Home Medications olanzapine 20 mg tablet 20 mg PO QHS 02/13/25 metoprolol tartrate 25 mg tablet 12.5 mg (1/2 x 25 mg) PO BID #30 tabs 02/16/25 Physical Exam Narrative GENERAL: cooperative HEENT: Atraumatic; normocephalic EYES; Anicteric, Normal Conjunctiva NECK; supple, normal thyroid, RESPIRATORY: Diminished to auscultation CARDIOVASCULAR: Regular S1 S2, GI: soft, normoactive bowel sounds, : No Renal angle tenderness; EXTREMITIES: No edema, no clubbing, MUSCULOSKELETAL: no muscle wasting NEURO: Awake; no lateralizing signs. SKIN: No Rash PSYCH; Flat affect Weight / BMI Weight Weight: 90.718 kg Body Mass Index (BMI) 29.5 ABG / Lab / Microbiology Data 03/31/25 21:13 03/31/25 21:13 D/C Instructions Discharge Activity: Return to Normal Activity Call your doctor if you observe: Fever of 101 or Higher, Shortness of breath, Fainting spells and Chest pain DC O2, CPAP, BIPAP Needs Home O2 Discharge instructions: No Meaningful Use Info Meaningful Use Meaningful Use Diagnoses (Choose all that apply): None applicable Discharge Plan Admission Admit Date/Time: 03/31/25 21:20 Attending Provider: Ulysses Hernandez Primary Care Provider: Nikita Medina Consulting Providers: Jo-Ann Reynolds Discharge Orders/Prescriptions Prescriptions: Continued olanzapine 20 mg tablet 20 mg PO QHS metoprolol tartrate 25 mg Tablet 12.5 mg PO BID Qty: 30 2RF Referrals / Follow Up: Nikita Medina MD [Primary Care Provider, Family Practice] - Within 1 Week Disposition Disposition (needs filled in before D/C Order can be placed): Home, Self Care Charges/Coding Visit Charges Inpatient E&M: 92635 Disch Hosp >30min
[2025-04-03] MEDS: Thiamine Hydrochloride 100 MG Tablet PO (08:47)
[2025-04-03] MEDS: Nicotine (PBKC) 21 MG Patch TD (09:18)
[2025-04-03 09:19] VITALS: BP 130/76; PULSE 66
== END 2025-04-03 09:40 | disposition home or self-care (01) | DRG 775 ==
LOC: ED 21:33 → MS3 22:34
PROVIDERS: Admitting Provider Family Medicine; Emergency Provider Emergency Medicine; PCP Family Medicine; Visit Provider Internal Medicine
DX: F10.239 Alcohol dependence with withdrawal, unspecified (principal); E66.9 Obesity, unspecified; I10 Essential (primary) hypertension; F32.A Depression, unspecified; F41.9 Anxiety disorder, unspecified; Z86.16 Personal history of COVID-19; Z87.891 Personal history of nicotine dependence; Z79.899 Other long term (current) drug therapy; Z68.31 Body mass index [BMI] 31.0-31.9, adult; Y90.8 Blood alcohol level of 240 mg/100 ml or more
CPT/HCPCS: 80048; 80076; 80307; 82077; 83735; 84100; 85025; 99284; A4216

== ENCOUNTER 2025-04-07 14:20 | Observation (INO) | payer MEDICAID, SELFPAY ==
[2025-04-07 14:20] VITALS: BP 175/113; PULSE 122; RESP 18; TEMP 36.8; O2SAT 95; BMI 30.8
--- NOTE | 2025-04-07 14:47 | EX.ED.SAOD ---
HPI History of Present Illness Chief Complaint: ETOH Intox Narrative Narrative: 34-year-old male presents with his father for detox from alcohol. He states that he drinks mikes hard lemonade. Last drink was yesterday evening, less than 24 hours ago. His father states that this is the third time he has been here in the last 6 weeks. He was last admitted for detox on March 31, 1 week ago, then released on the . His father states that they got a call from [facility] today, and were told to bring him to the emergency department, get him admitted for detox, and they will work on residential rehabilitation. Patient denies any nausea or vomiting, no other symptoms. [facility] Medical History HTN (hypertension) Obesity Tobacco use Anxiety and depression COVID-19 Home Medications ?Medication ?Instructions ?Recorded ?Last Taken ?Type olanzapine 20 mg tablet 20 mg PO QHS 02/13/25 04/01/25 History metoprolol tartrate 25 mg tablet 12.5 mg (1/2 x 25 mg) PO BID #30 02/16/25 04/07/25 Rx tabs Allergy/AdvReac Type Severity Reaction Status Date / Time Cephalosporins Allergy Hives Verified 04/07/25 14:23 Penicillins Allergy Hives Verified 04/07/25 14:23 Family History Father Hypertension Diabetes Mother No problems noted. Surgical History (Updated 04/07/25 @ 15:59 by Kenji Leyva) Hx of tympanostomy tubes Hx of tonsillectomy Hx of splenectomy Social History household members: none Smoking Status: Current every day smoker tobacco type: smokeless tobacco Smokeless tobacco user: chewing tobacco alcohol intake: current alcohol intake frequency: 3 or more drinks per day Alcohol type: other details: Prior heavier, sober until ~ 1 wk prior, drinking 2-3 seltzer drinks daily. substance use type: former substance user Date of last use: Previously used cannabis and occasional opiate but is not for many years. ROS ROS ED ROS Narrative Review of systems positive for desire for detox. No nausea or vomiting. No exacerbating or alleviating factors. EXAM Physical Exam Narrative Exam Narrative: Afebrile. Vital signs noted. Nontoxic-appearing. Cardiovascular examination reveals mild tachycardia. Lungs are clear to auscultation bilaterally. Abdomen is soft and nontender without guarding or rebound. Positive bowel sounds. Neurological examination nonfocal, nonlateralizing. Awake, alert, ambulatory in ED to bathroom. Const Vital Signs: 04/07/25 14:20 04/07/25 14:57 Temperature 98.2 F 98.2 F Temperature Source Oral Oral Pulse Rate 122 H 97 Respiratory Rate 18 16 Blood Pressure 175/113 H 144/103 H Blood Pressure Mean 133 116 Blood Pressure Source Monitor Blood Pressure Position Semi-Fowlers Blood Pressure Location Right Arm Pulse Ox 95 Oxygen Delivery Method Room Air Room Air MDM MDM MDM Narrative Medical decision making narrative: I do not feel differential diagnosis is applicable. I reviewed the patient's prior ED visit and inpatient note. He had been on a phenobarb taper. Given his tachycardia and his elevated blood pressure, although he has history of hypertension, he will be given phenobarbital here. Medical clearance labs will be obtained and reviewed. On my interpretation of the laboratory work he has normal white count at 10.6 with hemoglobin slightly hemoconcentrated at 16.9, platelet count 454. He has had thrombophilia when compared to prior labs. CMP is significant for a chloride of 97 with normal BUN and creatinine. Glucose of 99. LFTs are elevated with AST of 104 and ALT of 153 which I think is secondary to his alcohol use. Ethyl alcohol is elevated at 293, so I doubt active withdrawal. However, he still was given phenobarbital here. I will discuss patient with the hospitalist for admission to detox as they are anticipating that this time he will require residential rehabilitation. Disposition is admitted in stable condition. History & Record Review Discussion w/independent historian: Patient and Family (Father) Lab Data Attestation: I reviewed the patient's lab results. Labs: Laboratory Results - last 24 hr 04/07/25 15:03 WBC 10.6 RBC 5.87 Hgb 16.9 H Hct 49.7 MCV 84.7 MCH 28.8 MCHC 34.0 RDW Std Deviation 43.0 RDW Coeff of Rhianna 14.0 Plt Count 454 H MPV 9.7 Immature Gran % (Auto) 0.200 Neut % (Auto) 48.3 Lymph % (Auto) 39.8 [place] % (Auto) 8.6 Eos % (Auto) 1.9 Baso % (Auto) 1.2 H Absolute Neuts (auto) 5.1 Absolute Lymphs (auto) 4.21 Nucleated RBC % 0 Sodium 138 Potassium 3.9 Chloride 97 L Carbon Dioxide 25.7 Anion Gap 16 H BUN 10 Creatinine 1.06 Estim Creat Clear Calc 110.53 Est GFR (MDRD) Non-Af 94 BUN/Creatinine Ratio 9.2 L Glucose 99 Calcium 8.9 Total Bilirubin 0.47 AST 104 H ALT 153 H Alkaline Phosphatase 106 Total Protein 8.0 Albumin 4.5 Globulin 3.5 Albumin/Globulin Ratio 1.3 Ethyl Alcohol 293.0 H Management Discussion w/another healthcare provider: Hospitalist (Dr. De Jesus) Discharge Plan Triage Chief Complaint: ETOH Intox ED Provider: Jero Mancia Dx/Rx/DC Orders Prescriptions: No Action olanzapine 20 mg tablet 20 mg PO QHS metoprolol tartrate 25 mg Tablet 12.5 mg PO BID Qty: 30 2RF Primary Care Provider: Nikita Medina Referrals: Nikita Medina MD [Primary Care Provider, Family Practice] Print Language: Ukrainian
[2025-04-07 14:57] VITALS: BP 144/103; PULSE 97; RESP 16; TEMP 36.8
[2025-04-07 15:15] LABS: Hematocrit 49.7 % (40-54); Hemoglobin 16.9 g/dL (13.0-16.5); Immature Granulocytes Count 0.020 X10^3/uL (0.0-0.0); Mean Corp Hgb Conc 34.0 g/dL (32-36); Mean Corpuscular Volume 84.7 fL (80-94); Mean Platelet Vol. 9.7 fl (6.2-12.0); NRBC Flagged by Analyzer 0 % (0-5); Platelet Count 454 K/mm3 (150-450); RBC Distribution Width CV 14.0 % (11.6-14.6); RBC Distribution Width SD 43.0 fl (35.1-43.9); Red Blood Count 5.87 M/mm3 (4.6-6.2); White Blood Count 10.6 K/mm3 (4.4-11.0)
[2025-04-07 15:50] LABS: AST(SGOT) 104 U/L (<=37); Alanine Aminotransfer ALT/SGPT 153 U/L (<=46); Albumin, Serum 4.5 g/dL (3.5-5.0); Alkaline Phosphatase 106 U/L (40-129); Anion Gap 16 (5-15); BUN 10 mg/dL (4-19); BUN/Creat Ratio 9.2 RATIO (10-20); Calcium,Total 8.9 mg/dL (7.6-11.0); Carbon Dioxide 25.7 mmol/L (21.0-32.0); Chloride 97 mmol/L (98-108); Estimated Creatinine Clearance 110.53 ml/min (50-250); Globulin 3.5 g/dL (2.2-4.2); Glucose 99 mg/dL (70-99); Potassium 3.9 mmol/L (3.3-5.1)
[2025-04-07 15:51] LABS: Alcohol, Blood (Medical)-Serum 293.0 mg/dL (<=10.0)
--- NOTE | 2025-04-07 16:27 | CM.ED ---
Social Work Patient requesting detox from alcohol. Treatment navigator notified of admission. Azul Lott, IDEA WORKER, ROTARY DRILL OPERATOR
--- NOTE | 2025-04-07 16:27 | CM.ED ---
Social Work Patient requesting detox from alcohol. Treatment navigator notified of admission. Azul Lott, RESEARCH ANTHROPOLOGIST, EVENT SALES MANAGER
--- NOTE | 2025-04-07 16:30 | PCM.HP.STD ---
HPI - General General Date of Admission: 04/07/25 Date of Service: 04/07/25 Chief Complaint: Alcohol use disorder HPI Narrative ANNAMARIE JOHN, is a 34 M with a history of depression, chewing tobacco use, and alcohol use disorder who presented to [facility] ED 04/07/2025 with family for admission for detox and possible placement. He was admitted 02/13/2025 and subsequently discharged and then Re-presented 03/31/2025 for alcohol detox and was discharged 04/03/2025 however went home and was drinking again. Per report [facility] advised family take him to the ED for admission and they can evaluate for possible inpatient options. Hospitalist contacted for admission. In the ED heart rate 97 with a blood pressure of 144/103, respiratory rate 16 and temp 98.2, pulse ox 95% on room air. White count 10.6 with a hemoglobin of 16.9, platelet count 554, BUN 10 with a creatinine 1.06. AST 104, ALT 153. He reported his last drink was last night however alcohol level 293. On my evaluation patient reports feeling a little bit shaky but ROS otherwise negative, of note he has received phenobarb. Reported to me as well that last drink was last night and said he is only been drinking 1 or 2 white claw since he was discharged however family member at bedside doubts that and it does seem unlikely given alcohol level of 293 and his timeline. Agreeable to admission [facility] Medical History Anxiety and depression COVID-19 HTN (hypertension) Obesity Tobacco use Home Medications ?Medication ?Instructions ?Recorded ?Last Taken ?Type olanzapine 20 mg tablet 20 mg PO QHS 02/13/25 04/01/25 History metoprolol tartrate 25 mg tablet 12.5 mg (1/2 x 25 mg) PO BID #30 02/16/25 04/07/25 Rx tabs Allergy/AdvReac Type Severity Reaction Status Date / Time Cephalosporins Allergy Hives Verified 04/07/25 14:23 Penicillins Allergy Hives Verified 04/07/25 14:23 Family History Father Hypertension Diabetes Mother No problems noted. Surgical History (Updated 04/07/25 @ 15:59 by Annamarie Leyva) Hx of splenectomy Hx of tonsillectomy Hx of tympanostomy tubes Social History household members: none Smoking Status: Current every day smoker tobacco type: smokeless tobacco Smokeless tobacco user: chewing tobacco alcohol intake: current alcohol intake frequency: 3 or more drinks per day Alcohol type: other details: Prior heavier, sober until ~ 1 wk prior, drinking 2-3 seltzer drinks daily. substance use type: former substance user Date of last use: Previously used cannabis and occasional opiate but is not for many years. ROS ROS Narrative General: Denies fever/chills HENT: Denies headache, denies stuffy nose, denies sore throat EYES: Denies changes in vision Resp: Denies cough, denies shortness of breath Cardiac: Denies chest pain GI: Denies abdominal pain, denies changes in bowel, denies nausea/vomiting : Denies changes in urination Extremity: Denies swelling MSK: Denies weakness Neuro: Denies any numbness/tingling, little bit shaky Heme: Denies any bleeding or bruising Skin: Denies rashes Psychiatric: No complaints voiced Vital Signs Vital Signs Vital Signs: 04/07/25 14:20 04/07/25 14:57 Temperature 98.2 F 98.2 F Temperature Source Oral Oral Pulse Rate 122 H 97 Respiratory Rate 18 16 Blood Pressure 175/113 H 144/103 H Blood Pressure Mean 133 116 Blood Pressure Source Monitor Blood Pressure Position Semi-Fowlers Blood Pressure Location Right Arm Pulse Ox 95 Oxygen Delivery Method Room Air Room Air Weight Weight: 94.801 kg Body Mass Index (BMI) 30.8 Physical Exam Narrative General: Alert, oriented, no apparent distress HEENT: Atraumatic, normocephalic Eyes: Anicteric, normal conjunctiva, extraocular movements grossly intact Neck: Supple Respiratory: Clear to auscultation bilaterally, normal respiratory effort Cardiovascular: Regular rate and rhythm GI: Soft, nontender, nondistended Extremities: No edema Musculoskeletal: Moving all extremities Neuro: No overt focal neurological deficits Skin: No rashes appreciated Psych: Superficially cooperative Results Lab / Micro Data 04/07/25 15:03 04/07/25 15:03 Labs: Laboratory Results - last 24 hr 04/07/25 15:03: WBC 10.6, RBC 5.87, Hgb 16.9 H, Hct 49.7, MCV 84.7, MCH 28.8, MCHC 34.0, RDW Std Deviation 43.0, RDW Coeff of Rhianna 14.0, Plt Count 454 H, MPV 9.7, Immature Gran % (Auto) 0.200, Neut % (Auto) 48.3, Lymph % (Auto) 39.8, Douglas % (Auto) 8.6, Eos % (Auto) 1.9, Baso % (Auto) 1.2 H, Absolute Neuts (auto) 5.1, Absolute Lymphs (auto) 4.21, Nucleated RBC % 0, Sodium 138, Potassium 3.9, Chloride 97 L, Carbon Dioxide 25.7, Anion Gap 16 H, BUN 10, Creatinine 1.06, Estim Creat Clear Calc 110.53, Est GFR (MDRD) Non-Af 94, BUN/Creatinine Ratio 9.2 L, Glucose 99, Calcium 8.9, Total Bilirubin 0.47, AST 104 H, ALT 153 H, Alkaline Phosphatase 106, Total Protein 8.0, Albumin 4.5, Globulin 3.5, Albumin/Globulin Ratio 1.3, Ethyl Alcohol 293.0 H Assessment & Plan Assessment/Plan (1) Alcohol withdrawal: (2) Subconjunctival hemorrhage of right eye: PLAN: Plan #Alcohol use disorder - We will begin CIWA every 4 for 24 hours, then every 6 for 24 hours, then every 12 until discharge -Will begin phenobarbital taper -Gabapentin 300 mg every 8 as needed -Will start Bentyl and hydroxyzine as needed as well as loperamide as needed -Trazodone 100 mg p.o. nightly as needed sleep -Begin thiamine and folic acid supplementation -Zofran as needed for nausea -Case management consult to assist with discharge planning -EtOH 293 -UDS pending #Depression/anxiety -Continue home medications #Tobacco use -Advise cessation -Nicotine replacement available if desired #DVT ppx: Low risk, ambulatory Xochilt De Jesus MD Charges/Coding Visit Charges Inpatient E&M: 90568 Init Hosp L1
[2025-04-07 16:43] LABS: Barbiturate Urine PRESUMPTIVE POSITIVE (< 200 ng/mL); Benzodiazepine Urine NEGATIVE (< 200 ng/mL); PCP Urine NEGATIVE (< 25 ng/mL); THC Urine NEGATIVE (< 50 ng/mL)
[2025-04-07 17:13] VITALS: BP 144/103; PULSE 97; RESP 16; TEMP 36.8; O2SAT 95
[2025-04-07 17:30] VITALS: BP 136/92; PULSE 86; RESP 16; TEMP 36.8; O2SAT 95
[2025-04-07] MEDS: 0.9% Saline Lock 10 ML Syringe IV (17:59)
[2025-04-07] MEDS: Nicotine (PBKC) 21 MG Patch TD (17:59)
[2025-04-07] MEDS: 0.9% Normal Saline (1000mL) 1,000 ML 75 ML IV (17:59)
[2025-04-07 21:40] VITALS: BP 138/54; PULSE 86; RESP 16; TEMP 36.7; O2SAT 98
[2025-04-07] MEDS: hydrOXYzine PAM 25 MG Capsule 50 MG PO (21:46)
[2025-04-08 02:20] VITALS: BP 140/89; PULSE 81; RESP 16; TEMP 36.6; O2SAT 96
[2025-04-08] MEDS: hydrOXYzine PAM 25 MG Capsule 50 MG PO ×4 (02:23→22:16)
[2025-04-08 05:18] LABS: Hematocrit 44.7 % (40-54); Hemoglobin 15.3 g/dL (13.0-16.5); Immature Granulocytes Count 0.030 X10^3/uL (0.0-0.0); Mean Corp Hgb Conc 34.2 g/dL (32-36); Mean Corpuscular Volume 84.5 fL (80-94); Mean Platelet Vol. 9.7 fl (6.2-12.0); NRBC Flagged by Analyzer 0 % (0-5); Platelet Count 418 K/mm3 (150-450); RBC Distribution Width CV 14.0 % (11.6-14.6); RBC Distribution Width SD 43.1 fl (35.1-43.9); Red Blood Count 5.29 M/mm3 (4.6-6.2); White Blood Count 13.4 K/mm3 (4.4-11.0)
[2025-04-08 05:41] LABS: AST(SGOT) 83 U/L (<=37); Alanine Aminotransfer ALT/SGPT 126 U/L (<=46); Albumin, Serum 3.9 g/dL (3.5-5.0); Alkaline Phosphatase 87 U/L (40-129); Anion Gap 13 (5-15); BUN 13 mg/dL (4-19); BUN/Creat Ratio 13.2 RATIO (10-20); Calcium,Total 8.6 mg/dL (7.6-11.0); Carbon Dioxide 24.6 mmol/L (21.0-32.0); Chloride 101 mmol/L (98-108); Estimated Creatinine Clearance 116.89 ml/min (50-250); Globulin 2.9 g/dL (2.2-4.2); Glucose 92 mg/dL (70-99); Potassium 3.7 mmol/L (3.3-5.1)
[2025-04-08 06:05] VITALS: BP 148/72; PULSE 89; RESP 16; TEMP 36.6; O2SAT 96
[2025-04-08] MEDS: Thiamine Hydrochloride 100 MG Tablet PO (08:45)
[2025-04-08] MEDS: Nicotine (PBKC) 21 MG Patch TD (08:45)
[2025-04-08 09:33] VITALS: BP 141/81; PULSE 96; RESP 16; TEMP 36.3; O2SAT 96
--- NOTE | 2025-04-08 12:24 | ADDICTION ---
Addendum entered by Coni Farah 04/08/25 12:41: Pt was screened and assessed for the Vivitrol shot. He meets criteria and would like it administered before discharge. He will have follow up injections at [facility]. [facility] will provide transportation to [facility] friday. Original Note: This report writer met with PT to conduct ASAM, MSE, AUDIT, DUDIT assessments and to plan for d/c. PT A+Ox4 and participated actively. All assessments completed. PT plans to f/u with [facility] for inpatient treatment services on Friday.
--- NOTE | 2025-04-08 12:24 | ADDICTION ---
Addendum entered by Coni Farah 04/08/25 12:41: Pt was screened and assessed for the Vivitrol shot. He meets criteria and would like it administered before discharge. [facility] to [facility] fr[facility]. Original Note: This fha underwriter met with PT to conduct ASAM, MSE, AUDIT, DUDIT assessments and to plan for d/c. PT A+Ox4 and participated actively. All assessments completed. [facility].
[2025-04-08] MEDS: Oxymetazoline 0.05% 1 SPRAY SPRAY.BTL 2 SPRAY NASAL ×2 (12:53→22:16)
[2025-04-08 13:33] VITALS: BP 134/92; PULSE 80; RESP 16; TEMP 36.8; O2SAT 96
--- NOTE | 2025-04-08 13:38 | CHAPLAIN ---
Type of Pastoral Visit _x__ Initial Visit ___ Follow-up Visit ___ On-call Visit ___ General Patient Visit ___ Spiritual Assessment ___ Family Conference ___ Bereavement ___ Rapid Response ___ Code Blue ___ Other (describe below) Pastoral Care Referral From _x__ Patient ___ Family ___ Nurse ___ Physician ___ Manager Of Construction ___ Sustainable Design Consultant ___ Other (describe below) Sacrament/Intervention _x__ Active listening ___ Anointing ___ Judaism ___ Bereavement ___ Communion _x__ Cindy exploration ___ _x__ Life review _x__ Prayer ___ Reconciliation ___ Sacrament of Sick _x__ Supportive presence ___ Wedding ___ Other (describe below) Pastoral Comments patient reviews his current situation and the causes of his depression/release into drinking; pt acknowledges that he knows what is bad for him and what should be done; pt acknowledges that he has good family support; the fact of his grandmother's and the loss of his job at the same time this year was something he did not handle well at all; pt has plans to go to [facility] and to work towards a long recovery with sobriety; pt is spiritual and welcomes prayers and spiritual care support
--- NOTE | 2025-04-08 13:38 | CHAPLAIN ---
Type of Pastoral Visit _x__ Initial Visit ___ Follow-up Visit ___ On-call Visit ___ General Patient Visit ___ Spiritual Assessment ___ Family Conference ___ Bereavement ___ Rapid Response ___ Code Blue ___ Other (describe below) Pastoral Care Referral From _x__ Patient ___ Family ___ Nurse ___ Physician ___ Manufacturing Technician ___ Hand Polisher ___ Other (describe below) Sacrament/Intervention _x__ Active listening ___ Anointing ___ Bahai ___ Bereavement ___ Communion _x__ Cindy exploration ___ _x__ Life review _x__ Prayer ___ Reconciliation ___ Sacrament of Sick _x__ Supportive presence ___ Wedding ___ Other (describe below) Pastoral Comments patient reviews his current situation and the causes of his depression/release into drinking; pt acknowledges that he knows what is bad for him and what should be done; pt acknowledges that he has good family support; the fact of his grandmother's and the loss of his job at the same time this year was something he did not handle well at all; pt has plans to go to [facility] and to work towards a long recovery with sobriety; pt is spiritual and welcomes prayers and spiritual care support
--- NOTE | 2025-04-08 16:27 | PN.HOSP_ITS ---
Reason for Visit Chief Complaint: Alcohol use disorder Subjective Subjective No new or acute complaints, still feeling little bit shaky but better than when he was in the ED Objective Data Objective Data Vital Signs: Vital Signs Temp Pulse Resp BP Pulse Ox O2 Del Method 98.2 F 80 16 134/92 H 96 Room Air 04/08/25 13:33 04/08/25 13:33 04/08/25 13:33 04/08/25 13:33 04/08/25 13:33 04/08/25 13:33 Oxygen Delivery Method Room Air Weight: 92.334 kg Body Mass Index (BMI) 30.0 Intake & Output: Intake and Output for Last 24 Hours 04/06/25 04/07/25 04/08/25 23:59 23:59 23:59 Intake Total 1800 / 1800 Balance 1800 / 1800 Lab / Micro Data 04/08/25 04:38 04/08/25 04:38 Labs: Laboratory Results - last 24 hr 04/07/25 16:11: Urine Opiates Screen NEGATIVE, U Buprenorphine Qual NEGATIVE, Ur Oxycodone Screen NEGATIVE, Urine Methadone Screen NEGATIVE, Urine Fentanyl Screen NEGATIVE, Ur Barbiturates Screen PRESUMPTIVE POSITIVE, Ur Phencyclidine Scrn NEGATIVE, Ur Amphetamines Screen NEGATIVE, U Benzodiazepines Scrn NEGATIVE, Urine Cocaine Screen NEGATIVE, U Cannabinoids Screen NEGATIVE 04/08/25 04:38: WBC 13.4 H, RBC 5.29, Hgb 15.3, Hct 44.7, MCV 84.5, MCH 28.9, MCHC 34.2, RDW Std Deviation 43.1, RDW Coeff of Rhianna 14.0, Plt Count 418, MPV 9.7, Immature Gran % (Auto) 0.200, Neut % (Auto) 60.7, Lymph % (Auto) 25.9, [place] % (Auto) 8.4, Eos % (Auto) 4.1, Baso % (Auto) 0.7, Absolute Neuts (auto) 8.1 H, Absolute Lymphs (auto) 3.46, Nucleated RBC % 0, Sodium 138, Potassium 3.7, Chloride 101, Carbon Dioxide 24.6, Anion Gap 13, BUN 13, Creatinine 0.99, Estim Creat Clear Calc 116.89, Est GFR (MDRD) Non-Af 101, BUN/Creatinine Ratio 13.2, Glucose 92, Calcium 8.6, Total Bilirubin 0.52, AST 83 H, ALT 126 H, Alkaline Phosphatase 87, Total Protein 6.8, Albumin 3.9, Globulin 2.9, Albumin/Globulin Ratio 1.4 Physical Exam Narrative General: Alert, oriented, no apparent distress HEENT: Atraumatic, normocephalic Eyes: extraocular movements grossly intact Neck: Supple Respiratory: normal respiratory effort Cardiovascular: no edema appreciated GI: nondistended Extremities: Moving all extremities Neuro: No overt focal neurological deficits Psych: Cooperative Assessment & Plan Assessment/Plan (1) Alcohol withdrawal: (2) Subconjunctival hemorrhage of right eye: PLAN: Plan #Alcohol use disorder - We will begin CIWA every 4 for 24 hours, then every 6 for 24 hours, then every 12 until discharge -Will begin phenobarbital taper -Gabapentin 300 mg every 8 as needed -Will start Bentyl and hydroxyzine as needed as well as loperamide as needed -Trazodone 100 mg p.o. nightly as needed sleep -Begin thiamine and folic acid supplementation -Zofran as needed for nausea -Case management consult to assist with discharge planning -EtOH 293 -UDS pending -04/08: UDS + for barbs otherwise negative, pt toelrating phenobarb taper, plan for [facility] residential friday morning Chronic medical problems and/or problems not being actively addressed during today's encounter: #Depression/anxiety -Continue home medications #Tobacco use -Advise cessation -Nicotine replacement available if desired #DVT ppx: Low risk, ambulatory Xochilt De Jesus MD Charges/Coding Visit Charges Inpatient E&M: 61545 Subs Hosp L1
[2025-04-08 17:33] VITALS: BP 136/86; PULSE 87; RESP 16; TEMP 36.7; O2SAT 96
[2025-04-08] MEDS: Nicotine 4mg Gum (PBKC) 4 MG GUM PO (18:23)
[2025-04-08 22:15] VITALS: BP 138/98; PULSE 78; RESP 16; TEMP 36.6; O2SAT 95
[2025-04-09] MEDS: hydrOXYzine PAM 25 MG Capsule 50 MG PO ×3 (02:10→13:51)
[2025-04-09 02:15] VITALS: BP 135/96; PULSE 58; RESP 16; TEMP 36.6; O2SAT 99
[2025-04-09 09:03] VITALS: BP 128/94; PULSE 75; RESP 16; TEMP 36.6; O2SAT 95
[2025-04-09] MEDS: Thiamine Hydrochloride 100 MG Tablet PO (09:03)
[2025-04-09] MEDS: Nicotine (PBKC) 21 MG Patch TD (09:04)
[2025-04-09] MEDS: Oxymetazoline 0.05% 1 SPRAY SPRAY.BTL 2 SPRAY NASAL ×2 (09:05→19:28)
[2025-04-09] MEDS: 0.9% Saline Lock 10 ML Syringe IV (09:12)
--- NOTE | 2025-04-09 09:30 | PCM.PN.HOSP ---
Subjective Subjective CIWA score of 2 Objective Data Objective Data Vital Signs: Vital Signs Temp Pulse Resp BP Pulse Ox O2 Del Method 98 F 75 16 128/94 H 95 Room Air 04/09/25 09:03 04/09/25 09:03 04/09/25 09:03 04/09/25 09:03 04/09/25 09:03 04/09/25 09:03 Oxygen Delivery Method Room Air Weight: 203 lb 9 oz Body Mass Index (BMI) 30.0 Intake & Output: Intake and Output for Last 24 Hours 04/08/25 04/09/25 04/10/25 03:59 03:59 03:59 Intake Total 3000 / 3000 Balance 3000 / 3000 Lab / Micro Data 04/08/25 04:38 04/08/25 04:38 Physical Exam Narrative General: Alert, Oriented x3, Cooperative, No apparent distress HEENT: Atraumatic, PERRLA, EOMI, Normocephalic Oral: Moist Mucosa Neck: Supple, No JVD Lungs: Clear to auscultation, Normal air movement, No rhonchi, No wheeze, No rales Cardiovascular: Regular rate, Regular Rhythm, Normal S1, Normal S2, No murmurs Abdomen: Soft, Non Tender, Non-Distended, No Hepato-splenomegaly Extremities: No edema, Capillary Refill Less than 3 Seconds Skin: No rashes, No breakdown Musculoskeletal: No Tenderness to Palpation of Joints or Extremities Neurological: No focal neurological deficits, Motor Exam 5/5 strength throughout, Sensory exam intact to light touch and pain Psych/Mental Status: Normal Affect, Appropriate Assessment & Plan Assessment/Plan (1) Alcohol withdrawal: (2) Subconjunctival hemorrhage of right eye: PLAN: Plan 1. Alcohol withdrawal/anxiety/depression/tobacco use ? Continue with 180 evaluation while here in the hospital ? Continue with the alcohol withdrawal protocol ? Plan for Vivitrol on discharge ? Plan for inpatient rehab on discharge, this is planned for Friday ? Continue with his home mental health medications ? Discussed tobacco cessation DVT: Ambulation Charges/Coding Visit Charges Inpatient E&M: 01290 Subs Hosp L2
[2025-04-09] MEDS: Nicotine 4mg Gum (PBKC) 4 MG GUM PO ×5 (12:55→22:16)
[2025-04-09 13:49] VITALS: BP 133/90; PULSE 85; RESP 15; TEMP 37.4; O2SAT 95
--- NOTE | 2025-04-09 16:48 | ADDICTION ---
This worker met with pt to discuss upcoming admission to [facility] on Wednesday 04/11 at 11:30AM. TW addressed pt questions and provided support. [facility] to transport.
--- NOTE | 2025-04-09 16:48 | ADDICTION ---
This worker met with pt to discuss upcoming admission to [facility] on Wednesday 04/11 at 11:30AM. TW addressed pt questions and provided support. [facility] to transport.
[2025-04-09 18:13] VITALS: BP 129/88; PULSE 88; RESP 16; TEMP 36.8; O2SAT 97
[2025-04-09 19:36] VITALS: BP 119/89; PULSE 78; RESP 16; TEMP 36.4; O2SAT 98
[2025-04-10 02:16] VITALS: BP 111/77; PULSE 80; RESP 16; TEMP 36.3; O2SAT 96
[2025-04-10 02:17] VITALS: BP 111/77; PULSE 80; RESP 16; TEMP 36.3; O2SAT 96
[2025-04-10 08:39] VITALS: BP 132/91; PULSE 71; RESP 16; TEMP 36.4; O2SAT 97
[2025-04-10] MEDS: Thiamine Hydrochloride 100 MG Tablet PO (08:39)
[2025-04-10] MEDS: Nicotine (PBKC) 21 MG Patch TD (08:40)
[2025-04-10] MEDS: Oxymetazoline 0.05% 1 SPRAY SPRAY.BTL 2 SPRAY NASAL ×2 (08:40→20:28)
[2025-04-10] MEDS: 0.9% Saline Lock 10 ML Syringe IV ×2 (08:40→18:47)
[2025-04-10] MEDS: Nicotine 4mg Gum (PBKC) 4 MG GUM PO ×6 (08:41→22:06)
--- NOTE | 2025-04-10 08:52 | PCM.PN.HOSP ---
Subjective Subjective CIWA score 5 Objective Data Objective Data Vital Signs: Vital Signs Temp Pulse Resp BP Pulse Ox O2 Del Method 97.5 F L 71 16 132/91 H 97 Room Air 04/10/25 08:39 04/10/25 08:39 04/10/25 08:39 04/10/25 08:39 04/10/25 08:39 04/10/25 08:39 Oxygen Delivery Method Room Air Weight: 203 lb 9 oz Body Mass Index (BMI) 30.0 Intake & Output: Intake and Output for Last 24 Hours 04/09/25 04/10/25 04/11/25 03:59 03:59 03:59 Intake Total 3000 / 3000 1500 / 1500 250 / 250 Balance 3000 / 3000 1500 / 1500 250 / 250 Lab / Micro Data 04/08/25 04:38 04/08/25 04:38 Physical Exam Narrative General: Alert, Oriented x3, Cooperative, No apparent distress HEENT: Atraumatic, PERRLA, EOMI, Normocephalic Oral: Moist Mucosa Neck: Supple, No JVD Lungs: Clear to auscultation, Normal air movement, No rhonchi, No wheeze, No rales Cardiovascular: Regular rate, Regular Rhythm, Normal S1, Normal S2, No murmurs Abdomen: Soft, Non Tender, Non-Distended, No Hepato-splenomegaly Extremities: No edema, Capillary Refill Less than 3 Seconds Skin: No rashes, No breakdown Musculoskeletal: No Tenderness to Palpation of Joints or Extremities Neurological: No focal neurological deficits, Motor Exam 5/5 strength throughout, Sensory exam intact to light touch and pain Psych/Mental Status: Normal Affect, Appropriate Assessment & Plan Assessment/Plan (1) Alcohol withdrawal: (2) Subconjunctival hemorrhage of right eye: PLAN: Plan 1. Alcohol withdrawal/anxiety/depression/tobacco use ? Continue with 180 evaluation while here in the hospital ? Continue with the alcohol withdrawal protocol ? Plan for Vivitrol on discharge ? Plan for inpatient rehab on discharge, this is planned for Friday ? Continue with his home mental health medications ? Discussed tobacco cessation DVT: Ambulation Charges/Coding Visit Charges Inpatient E&M: 43294 Subs Hosp L2
[2025-04-10] MEDS: hydrOXYzine PAM 25 MG Capsule 50 MG PO ×2 (14:40→20:28)
[2025-04-10 14:41] VITALS: BP 139/87; PULSE 83; RESP 15; TEMP 36.9; O2SAT 97
--- NOTE | 2025-04-10 18:58 | NURSING ---
pt's iv was kinked and half out; IV would not flush; pt refused to have a new IV placed as he is supposed to leave in the morning; pt not currently getting anything through his iv
[2025-04-10 20:19] VITALS: BP 150/100; PULSE 79; RESP 18; TEMP 36.6; O2SAT 98
[2025-04-11 02:45] VITALS: BP 119/83; PULSE 94; RESP 16; TEMP 36.4; O2SAT 97
[2025-04-11 08:35] VITALS: BP 136/78; PULSE 85; RESP 16; TEMP 36.4; O2SAT 99
[2025-04-11] MEDS: Nicotine (PBKC) 21 MG Patch TD (08:39)
[2025-04-11] MEDS: Nicotine 4mg Gum (PBKC) 4 MG GUM PO ×2 (08:40→11:25)
[2025-04-11] MEDS: Thiamine Hydrochloride 100 MG Tablet PO (08:40)
[2025-04-11] MEDS: Oxymetazoline 0.05% 1 SPRAY SPRAY.BTL 2 SPRAY NASAL (08:40)
--- NOTE | 2025-04-11 09:16 | PCM.DC ---
Discharge Instructions DC O2, CPAP, BIPAP needs Home O2 Discharge instructions: No Dressing / Incision Discharge Activity: Return to Normal Activity Dressing / Incision Call your doctor if you observe: Fever of 101 or Higher, Shortness of breath, Dizziness, Fainting spells, Swelling in the ankles, Chest pain and Increased palpitations (irregular heartbeat) Follow Up Care Test Results: Test results from this visit will be discussed in further detail at your follow-up appointment, if applicable. Discharge Plan Admission Admit Date/Time: 04/07/25 16:30 Attending Provider: Kenneth Peter Primary Care Provider: Nikita Medina Consulting Providers: Xochilt De Jesus Discharge Orders/Prescriptions Prescriptions: Continued olanzapine 20 mg tablet 20 mg PO QHS metoprolol tartrate 25 mg Tablet 12.5 mg PO BID Qty: 30 2RF Referrals / Follow Up: Nikita Medina MD [Primary Care Provider, [facility]] Disposition Disposition (needs filled in before D/C Order can be placed): Inpatient Rehab Unit/Facility
--- NOTE | 2025-04-11 09:16 | PCM.DC ---
Discharge Instructions DC O2, CPAP, BIPAP needs Home O2 Discharge instructions: No Dressing / Incision Discharge Activity: Return to Normal Activity Dressing / Incision Call your doctor if you observe: Fever of 101 or Higher, Shortness of breath, Dizziness, Fainting spells, Swelling in the ankles, Chest pain and Increased palpitations (irregular heartbeat) Follow Up Care Test Results: Test results from this visit will be discussed in further detail at your follow-up appointment, if applicable. Discharge Plan Admission Admit Date/Time: 04/07/25 16:30 Attending Provider: Kenneth Peter Primary Care Provider: Nikita Medina Consulting Providers: Xochilt De Jesus Discharge Orders/Prescriptions Prescriptions: Continued olanzapine 20 mg tablet 20 mg PO QHS metoprolol tartrate 25 mg Tablet 12.5 mg PO BID Qty: 30 2RF Referrals / Follow Up: Nikita Medina MD [Primary Care Provider, [facility]] Disposition Disposition (needs filled in before D/C Order can be placed): Inpatient Rehab Unit/Facility
--- NOTE | 2025-04-11 09:47 | PHA.DC.MR.R ---
Pharmacy [place] Med Reconciliation Pharmacy Service has performed discharge medication reconciliation for this patient. The patient's discharge medication list was reviewed for discrepancies and discrepancies were resolved. Medications at Discharge Home Medications olanzapine 20 mg tablet 20 mg PO QHS 02/13/25 metoprolol tartrate 25 mg tablet 12.5 mg (1/2 x 25 mg) PO BID #30 tabs 02/16/25
[2025-04-11] MEDS: Naltrexone Microspheres 380 MG SYRINGE IM (10:24)
[2025-04-11] MEDS: Vivitrol Administration Needles 1 EACH MC (10:30)
[2025-04-11] MEDS: Vivitrol ID Card 1 EACH MC (10:30)
--- NOTE | 2025-04-11 14:07 | PCM.DC.SUM ---
Providers Date of Admission: 04/07/25 Primary Care Physician: Dr. Nikita Medina MD Reason For Visit: ALCOHOL DETOX Diagnosis Discharge Diagnosis (1) Alcohol withdrawal: Status: Resolved Code(s): F10.939 - Alcohol use, unspecified with withdrawal, unspecified (2) Subconjunctival hemorrhage of right eye: Status: Inactive Code(s): H11.31 - Conjunctival hemorrhage, right eye Medications at Discharge Home Medications olanzapine 20 mg tablet 20 mg PO QHS 02/13/25 metoprolol tartrate 25 mg tablet 12.5 mg (1/2 x 25 mg) PO BID #30 tabs 02/16/25 Hospital Course Operations None Procedures None Summary of Care Provided Minutes Spent on Discharge: 31 Hospital Course: Per HPI: ANNAMARIE JOHN, is a 34 M with a history of depression, chewing tobacco use, and alcohol use disorder who presented to [facility] ED 04/07/2025 with family for admission for detox and possible placement. He was admitted 02/13/2025 and subsequently discharged and then Re-presented 03/31/2025 for alcohol detox and was discharged 04/03/2025 however went home and was drinking again. Per report Bar[place] advised family take him to the ED for admission and they can evaluate for possible inpatient options. Hospitalist contacted for admission. In the ED heart rate 97 with a blood pressure of 144/103, respiratory rate 16 and temp 98.2, pulse ox 95% on room air. White count 10.6 with a hemoglobin of 16.9, platelet count 554, BUN 10 with a creatinine 1.06. AST 104, ALT 153. He reported his last drink was last night however alcohol level 293. On my evaluation patient reports feeling a little bit shaky but ROS otherwise negative, of note he has received phenobarb. Reported to me as well that last drink was last night and said he is only been drinking 1 or 2 white claw since he was discharged however family member at bedside doubts that and it does seem unlikely given alcohol level of 293 and his timeline. Agreeable to admission Hospital Course: 1. Alcohol withdrawal/anxiety/depression/tobacco abuse?34-year-old male presented to the hospital with recurrent alcohol intoxication requesting detox. He tolerated the alcohol withdrawal protocol and he met with 180 and agreed for inpatient rehab on discharge. He also received Vivitrol infusion today prior to discharge and was discharged to inpatient rehab. CIWA score today prior to discharge was 1. I did discuss with him the plan for discharge today and he expressed understanding of the risks and benefits of going to rehab and would like to go today. Physical Exam Narrative General: Alert, Oriented x3, Cooperative, No apparent distress HEENT: Atraumatic, PERRLA, EOMI, Normocephalic Oral: Moist Mucosa Neck: Supple, No JVD Lungs: Clear to auscultation, Normal air movement, No rhonchi, No wheeze, No rales Cardiovascular: Regular rate, Regular Rhythm, Normal S1, Normal S2, No murmurs Abdomen: Soft, Non Tender, Non-Distended, No Hepato-splenomegaly Extremities: No edema, Capillary Refill Less than 3 Seconds Skin: No rashes, No breakdown Musculoskeletal: No Tenderness to Palpation of Joints or Extremities Neurological: No focal neurological deficits, Motor Exam 5/5 strength throughout, Sensory exam intact to light touch and pain Psych/Mental Status: Normal Affect, Appropriate Weight / BMI Weight Weight: 203 lb 9 oz Body Mass Index (BMI) 30.0 ABG / Lab / Microbiology Data 04/08/25 04:38 04/08/25 04:38 D/C Instructions Call your doctor if you observe: Fever of 101 or Higher, Shortness of breath, Dizziness, Fainting spells, Swelling in the ankles, Chest pain and Increased palpitations (irregular heartbeat) DC O2, CPAP, BIPAP Needs Home O2 Discharge instructions: No Meaningful Use Info Meaningful Use Meaningful Use Diagnoses (Choose all that apply): None applicable Discharge Plan Admission Admit Date/Time: 04/07/25 16:30 Attending Provider: Kenneth Peter Primary Care Provider: Nikita Medina Consulting Providers: Xochilt De Jesus Discharge Orders/Prescriptions Prescriptions: Continued olanzapine 20 mg tablet 20 mg PO QHS metoprolol tartrate 25 mg Tablet 12.5 mg PO BID Qty: 30 2RF Referrals / Follow Up: Nikita Medina MD [Primary Care Provider, Family Practice] Disposition Disposition (needs filled in before D/C Order can be placed): Home, Self Care Charges/Coding Visit Charges Inpatient E&M: 91499 Disch Hosp >30min
--- OUTSIDE RECORDS SUMMARY | 2025-04-18 11:50 | XMS RPT_ITS | CCD ---
Author Organization [facility] Care Team Providers Care Animal Cruelty Investigator Name Role Phone Edu FAJARDO, Nikita Llanes Primary Care Provider NIKITA SORENSEN Primary Care Unavailabl NIKITA Rosas Primary Care Unavailabl NIKITA Rosas Primary Care Unavailabl gricelda Sorensen MD, Nikita Llanes Primary Care Provider MADELYN CRAIN Attending Unavailable EDU, NIKITA Primary Care Unavailable Edu FAJARDO, Dr. Shelton Primary Care Provider Dr. Deep Holman DO Emergency Provider [phone] Neal FAJARDO, Dr. Lemon Admit Provider Neal FAJARDO, Dr. Lemon Attending Provider [phone] Neal FAJARDO, Dr. Lemon Other Provider Isac FAJARDO, Dr. Angela Vargas Attending Provider Isac FAJARDO, Dr. Angela Vargas Other Provider Black FAJARDO, Dr. Huddleston Attending Provider Unavailab le Jo-Ann Reynolds Consulting Unavailable Jo-Ann Reynolds Admitting Unavailable Ulysses Hernandez Attending Unavailable Edu, Nikita Primary Care Unavailable Edu, Nikita Primary Care Unavailable Angela Chau Attending Unavailable Xochilt De Jesus Consulting Unavailable Xochilt De Jesus Admitting Unavailable Edu, Nikita Primary Care Unavailable Angela Chau Attending Unavailable Xochilt De Jesus Admitting Unavailable Xochilt De Jesus Consulting Unavailable Angela Chau Consulting Unavailable Xochilt De Jesus Attending Unavailable Edu, Nikita Primary Care Unavailable Karo Cleaning Attending Unavailable Edu, Nikita Primary Care Unavailable Isabel Hoskins Attending Unavailable Jo-Ann Reynolds Consulting Unavailable Jo-Ann Reynolds Admitting Unavailable [place], Ulysses Attending Unavailable Nikita Sorensen [facility] Unavailable Ulysses Hernandez Consulting Unavailable Xochilt De Jesus Attending Unavailable Xochilt De Jesus Consulting Unavailable Xochilt De Jesus Admitting Unavailable Edu Nikita [facility] Unavailable Kenneth Peter Attending Unavailable Kenneth Peter Consulting Unavailable Jo-Ann Reynolds Attending Unavailable Xochilt De Jesus Admitting Unavailable Xochilt De Jesus Consulting Unavailable Nikita Sorensen [facility] Unavailable Kenneth Peter Attending Unavailable Allergies Allergy Classification Reported Allergen(s) Allergy Type Date of Onset Reaction(s) Facility (20 sources) Cephalosporins (Antibiotic); Translations: [CEPHALOSPORINS] Propensity to adverse reactions to drug 5 [facility] (20 sources) Penicillins; Translations: [PENICILLINS] Propensity to adverse reactions to drug 2 [facility] Work Phone: (17 sources) Cephalexin Drug Allergy 6 [facility] (17 sources) Citronella Oil Propensity to adverse reactions 2 [facility] Medications Current Medications Medication Drug Class(es) Dates [...] oral solution (1 source) alpha-Adrenergic Agonist, Uncompetitive K-lpfzwn-H-aspartat e Receptor Antagonist, Sigma-1 Agonist Start: 10-18-2019 [...] End: 05-20-2023 diphenhydrAMINE (BENADryl) injection 12.5 mg [id number] 0.3 ml EPINEPHrine 1 mg/ml auto-injector (5 [...] TWICE A DAY as needed for MRSA January 19, 2022 4:43pm February 13, 2025 [...] tablet Discontinued 40 mg PO DAILY 8 April 19, 2023 12:00am February 13, 2025 3:07pm Start: 04-19-2023 take 40 mg by mouth once daily Prednisone Active 40 MG PO DAILY 8 April 19, 2023 12:00am 5 ml sodium [...] 1 {tbl} PO TWICE A DAY 14 January 19, 2022 12:00am February 13, 2025 3:07pm Start: 01-19-2022 take 1 tablet by jannet th twice daily Sulfamethoxazole-Trimethoprim Active 1 T ABLET PO TWICE A DAY January 19, 2022 12:00am terbinafine hydrochloride 10 [...] [Unspecified abdominal pain] 06-26-2021 Episodic Alcohol-related disorders (4 sources) Alcohol withdrawal syndrome; Translations: [Alcohol withdrawal syndrome] Onset: 04-06-2025 02-13-2025 Chronic Allergic reactions (6 sources) Urticaria; [...] eye; Translations: [Conjunctival hemorrhage, right eye] Onset: 04-11-2025 Episodic Other screening for suspected conditions (not [...] [Alcohol use, unspecified with withdrawal, unspecified] Onset: 04-11-2025 Viral infection (5 sources) Disease caused by [...] Value Interpretation Reference Range Facility Discharge Instructionon 03-30 Discharge Instruction [facility] Medical Records Department [address] [place] [address] Instructions for Home/Discharge Instructions 04/11/25 0916 MR#: [id number] Acct: [id number] Name: ANNAMARIE LARIOS Rep #: [id number] : 1990 34 From: Kenneth Peter MD PCP: Dr. Nikita Sorensen MD Status:ADM IN Discharge Instructions DC O2, CPAP, BIPAP needs Home O2 Discharge instructions: No Dressing / Incision Discharge Activity: Return to Normal Activity Dressing / Incision Call your doctor if you observe: Fever of 101 or Higher, Shortness of breath, Dizziness, Fainting spells, Swelling in the ankles, Chest pain and Increased palpitations (irregular heartbeat) Follow Up Care Test Results: Test results from this visit will be discussed in further detail at your follow-up appointment, if applicable. Discharge Plan Admission Admit Date/Time: 04/07/25 16:30 Attending Provider: Kenneth Peter Primary Care Provider: Nikita Sorensen Consulting Providers: Xochilt De Jesus Discharge Orders/Prescriptions Prescriptions: Continued olanzapine 20 mg tablet 20 mg PO QHS metoprolol tartrate 25 mg Tablet 12.5 mg PO BID Qty: 30 2RF Referrals / Follow Up: Nikita Sorensen MD [Primary Care Provider, [facility]] Disposition Disposition (needs filled in before D/C Order can be placed): Inpatient Rehab Unit/Facility 04/11/25 0918 Kenneth Peter MD CC: Dr. Nikita Sorensen MD; Dr. Xochilt De Jesus MD Signed Normal [facility] CBC W/Diff, Automatedon 10 0-2024 Absolute Lymph 3.46 X10 3/uL Normal 0.83-4.51 [facility] Comment on above: Performed By: #### L 100.0100, L500.4050 ####[facility] [address] [place], [address] Absolute Neut 8.1 X10 3/uL High 2.0-7.7 [facility] Comment on above: Performed By: #### L 100.0100, L500.4050 ####[facility] [address] [place], [address] Basophils/100 WBC (Bld) 0.7 % Normal 0-1 [facility] Comment on above: Performed By: #### L 100.0100, L500.4050 ####[facility] [address] [place], [address] Eosinophils/100 WBC (Bld) 4.1 % Normal 0-5 [facility] Comment on above: Performed By: #### L 100.0100, L500.4050 ####[facility] [address] [place], [address] Erythrocyte distribution width (RBC) [Ratio] 14.0 % Normal 11.6-14.6 [facility] Comment on above: Performed By: #### L 100.0100, L500.4050 ####[facility] [address] [place], [address] Hematocrit (Bld) [Volume fraction] 44.7 % Normal 40-54 [facility] Comment on above: Performed By: #### L 100.0100, L500.4050 ####[facility] [address] [place], [address] Hemoglobin (Bld) [Mass/Vol] 15.3 g/dL Normal 13.0-16.5 [facility] Comment on above: Performed By: #### L 100.0100, L500.4050 ####[facility] [address] [place], [address] IG% 0.200 Normal 0.0-0.9 [facility] Comment on above: Result Comment: IG% - Immature Granulocytes (promyelocytes, myelocytes and metamyelocytes) > 1% indicates that a LEFT SHIFT is Present. Performed By: #### L 100.0100, L500.4050 ####[facility] [address] [place], [address] Lymphocytes/100 WBC (Bld) 25.9 % Normal 19-41 [facility] Comment on above: Performed By: #### L 100.0100, L500.4050 ####[facility] [address] [place], [address] MCH (RBC) [Entitic mass] 28.9 pg Normal 27.0-32.0 [facility] Comment on above: Performed By: #### L 100.0100, L500.4050 ####[facility] [address] [place], [address] MCHC (RBC) [Mass/Vol] 34.2 g/dL Normal 32-36 [facility] Comment on above: Performed By: #### L 100.0100, L500.4050 ####[facility] [address] [place], [address] MCV (RBC) [Entitic vol] 84.5 fL Normal 80-94 [facility] Comment on above: Performed By: #### L 100.0100, L500.4050 ####[facility] [address] [place], [address] Monocytes/100 WBC (Bld) 8.4 % Normal 0-10 [facility] Comment on above: Performed By: #### L 100.0100, L500.4050 ####[facility] [address] [place], [address] Neutrophils/100 WBC (Bld) 60.7 % Normal 47-70 [facility] Comment on above: Performed By: #### L 100.0100, L500.4050 ####[facility] [address] [place], [address] Nucleated RBC (Bld) [#/Vol] 0 10*3/uL Normal 0-5 [facility] Comment on above: Performed By: #### L 100.0100, L500.4050 ####[facility] [address] [place], [address] Platelet mean volume (Bld) [Entitic vol] 9.7 fL Normal 6.2-12.0 [facility] Comment on above: Performed By: #### L 100.0100, L500.4050 ####[facility] [address] [place], [address] Platelets (Bld) [#/Vol] 418 10*3/uL Normal 150-450 [facility] Comment on above: Performed By: #### L 100.0100, L500.4050 ####[facility] [address] [place], [address] RBC (Bld) [#/Vol] 5.29 10*6/uL Normal 4.6-6.[address] [facility] Comment on above: Performed By: #### L 100.0100, L500.4050 ####[facility] [address] [place], [address] RDW SD 43.1 fl Normal 35.1-43.9 [facility] Comment on above: Performed By: #### L 100.0100, L500.4050 ####[facility] [address] [place], [address] WBC (Bld) [#/Vol] 13.4 10*3/uL High 4.4-11.[address] [facility] Comment on above: Performed By: #### L 100.0100, L500.4050 ####[facility] [address] [place], [address] Comprehensive Metabolic Prof ilon 04-08-2025 Albumin [Mass/Vol] 3.9 g/dL Normal 3.5-5.0 [facility] Comment on above: Performed By: #### L 100.0100, L500.4050 ####[facility] [address] [place], [address] Albumin/Globulin [Mass ratio] 1.4 {ratio} Normal 0.9-2.4 [facility] Comment on above: Performed By: #### L 100.0100, L500.4050 ####[facility] [address] [place], [address] ALK PHOS 87 U/L Normal 40-129 [facility] Comment on above: Performed By: #### L 100.0100, L500.4050 ####[facility] [address] [place], [address] ALT [Catalytic activity/Vol] 126 U/L High <=46 [facility] Comment on above: Performed By: #### L 100.0100, L500.4050 ####[facility] [address] [place], [address] AST [Catalytic activity/Vol] 83 U/L High <=37 [facility] Comment on above: Performed By: #### L 100.0100, L500.4050 ####[facility] [address] [place], [address] Bilirubin [Mass/Vol] 0.52 mg/dL Normal 0.00-1.30 [facility] Comment on above: Performed By: #### L 100.0100, L500.4050 ####[facility] [address] [place], [address] BUN/CRE 13.2 RATIO Normal 10-20 [facility] Comment on above: Performed By: #### L 100.0100, L500.4050 ####[facility] [address] [place], [address] Calcium [Mass/Vol] 8.6 mg/dL Normal 7.6-11.0 [facility] Comment on above: Performed By: #### L 100.0100, L500.4050 ####[facility] [address] [place], [address] Chloride [Moles/Vol] 101 mmol/L Normal 98-108 [facility] Comment on above: Performed By: #### L 100.0100, L500.4050 ####[facility] [address] [place], [address] CO2 [Moles/Vol] 24.6 mmol/L Normal 21.0-32.0 [facility] Comment on above: Performed By: #### L 100.0100, L500.4050 ####[facility] [address] [place], [address] Creatinine [Mass/Vol] 0.99 mg/dL Normal 0.70-1.20 [facility] Comment on above: Performed By: #### L 100.0100, L500.4050 ####[facility] [address] [place], [address] ECRCL 116.89 ml/min Normal 50-250 [facility] Comment on above: Performed By: #### L 100.0100, L500.4050 ####[facility] [address] [place], [address] GAP 13 Normal 5-15 [facility] Comment on above: Performed By: #### L 100.0100, L500.4050 ####[facility] [address] [place], [address] GFR/1.73 sq M.predicted among non-blacks MDRD (S/P/Bld) [Vol rate/Area] 101 mL/min/{1.73_m2} Normal >60 [facility] Comment on above: Result Comment: mL/m in/1.73m2 CKD-EPI Creatinine Equation (2020) Performed By: #### L 100.0100, L500.4050 ####[facility] [address] [place], [address] Globulin (S) [Mass/Vol] 2.9 g/dL Normal 2.2-4.2 [facility] Comment on above: Performed By: #### L 100.0100, L500.4050 ####[facility] [address] [place], [address] Glucose [Mass/Vol] 92 mg/dL Normal 70-99 [facility] Comment on above: Performed By: #### L 100.0100, L500.4050 ####[facility] [address] [place], [address] Potassium [Moles/Vol] 3.7 mmol/L Normal 3.3-5.1 [facility] Comment on above: Performed By: #### L 100.0100, L500.4050 ####[facility] [address] [place], [address] Sodium [Moles/Vol] 138 mmol/L Normal 133-145 [facility] Comment on above: Performed By: #### L 100.0100, L500.4050 ####[facility] [address] [place], [address] T PROT 6.8 g/dL Normal 5.9-8.4 [facility] Comment on above: Performed By: #### L 100.0100, L500.4050 ####[facility] [address] [place], [address] Urea nitrogen [Mass/Vol] 13 mg/dL Normal 4-19 [facility] Comment on above: Performed By: #### L 100.0100, L500.4050 ####[facility] [address] [place], [address] Alcohol, Blood (Medical)-Ser umon 04-07-2025 SERUM ETOH 293.0 mg/dL High <=10.0 [facility] Comment on above: Result Comment: This test is for medical purposes only. The legal definition of intoxication varies according to local law. Performed By: #### L 500.4050, L100.0100, L501.9100, L505.5000 ####[facility] [address] [place], [address] CBC W/Diff, Automatedon 10-0 Absolute Lymph 4.21 X10 3/uL Normal 0.83-4.51 [facility] Comment on above: Performed By: #### L 500.4050, L100.0100, L501.9100, L505.5000 #### [facility] [address] [place], [address] Absolute Neut 5.1 X10 3/uL Normal 2.0-7.7 [facility] Comment on above: Performed By: #### L 500.4050, L100.0100, L501.9100, L505.5000 #### [facility] [address] [place], [address] Basophils/100 WBC (Bld) 1.2 % High 0-1 [facility] Comment on above: Performed By: #### L 500.4050, L100.0100, L501.9100, L505.5000 #### [facility] [address] [place], [address] Eosinophils/100 WBC (Bld) 1.9 % Normal 0-5 [facility] Comment on above: Performed By: #### L 500.4050, L100.0100, L501.9100, L505.5000 #### [facility] [address] [place], [address] Erythrocyte distribution width (RBC) [Ratio] 14.0 % Normal 11.6-14.6 [facility] Comment on above: Performed By: #### L 500.4050, L100.0100, L501.9100, L505.5000 #### [facility] [address] [place], [address] Hematocrit (Bld) [Volume fraction] 49.7 % Normal 40-54 [facility] Comment on above: Performed By: #### L 500.4050, L100.0100, L501.9100, L505.5000 #### [facility] [address] [place], [address] Hemoglobin (Bld) [Mass/Vol] 16.9 g/dL High 13.0-16.5 [facility] Comment on above: Performed By: #### L 500.4050, L100.0100, L501.9100, L505.5000 #### [facility] [address] [place], [address] IG% 0.200 Normal 0.0-0.9 [facility] Comment on above: Result Comment: IG% - Immature Granulocytes (promyelocytes, myelocytes and metamyelocytes) > 1% indicates that a LEFT SHIFT is Present. Performed By: #### L 500.4050, L100.0100, L501.9100, L505.5000 #### [facility] [address] [place], [address] Lymphocytes/100 WBC (Bld) 39.8 % Normal 19-41 [facility] Comment on above: Performed By: #### L 500.4050, L100.0100, L501.9100, L505.5000 #### [facility] [address] [place], [address] MCH (RBC) [Entitic mass] 28.8 pg Normal 27.0-32.0 [facility] Comment on above: Performed By: #### L 500.4050, L100.0100, L501.9100, L505.5000 #### [facility] [address] [place], [address] MCHC (RBC) [Mass/Vol] 34.0 g/dL Normal 32-36 [facility] Comment on above: Performed By: #### L 500.4050, L100.0100, L501.9100, L505.5000 #### [facility] [address] [place], [address] MCV (RBC) [Entitic vol] 84.7 fL Normal 80-94 [facility] Comment on above: Performed By: #### L 500.4050, L100.0100, L501.9100, L505.5000 #### [facility] [address] [place], [address] Monocytes/100 WBC (Bld) 8.6 % Normal 0-10 [facility] Comment on above: Performed By: #### L 500.4050, L100.0100, L501.9100, L505.5000 #### [facility] [address] [place], [address] Neutrophils/100 WBC (Bld) 48.3 % Normal 47-70 [facility] Comment on above: Performed By: #### L 500.4050, L100.0100, L501.9100, L505.5000 #### [facility] [address] [place], [address] Nucleated RBC (Bld) [#/Vol] 0 10*3/uL Normal 0-5 [facility] Comment on above: Performed By: #### L 500.4050, L100.0100, L501.9100, L505.5000 #### [facility] [address] [place], [address] Platelet mean volume (Bld) [Entitic vol] 9.7 fL Normal 6.2-12.0 [facility] Comment on above: Performed By: #### L 500.4050, L100.0100, L501.9100, L505.5000 #### [facility] [address] [place], [address] Platelets (Bld) [#/Vol] 454 10*3/uL High 150-450 [facility] Comment on above: Performed By: #### L 500.4050, L100.0100, L501.9100, L505.5000 #### [facility] [address] [place], [address] RBC (Bld) [#/Vol] 5.87 10*6/uL Normal 4.6-6.[address] [facility] Comment on above: Performed By: #### L 500.4050, L100.0100, L501.9100, L505.5000 #### [facility] [address] [place], [address] RDW SD 43.0 fl Normal 35.1-43.9 [facility] Comment on above: Performed By: #### L 500.4050, L100.0100, L501.9100, L505.5000 #### [facility] [address] [place], [address] WBC (Bld) [#/Vol] 10.6 10*3/uL Normal 4.4-11.[address] [facility] Comment on above: Performed By: #### L 500.4050, L100.0100, L501.9100, L505.5000 #### [facility] [address] [place], [address] Comprehensive Metabolic Prof njon 04-07-2025 Albumin [Mass/Vol] 4.5 g/dL Normal 3.5-5.0 [facility] Comment on above: Performed By: #### L 500.4050, L100.0100, L501.9100, L505.5000 ####[facility] [address] [place], [address] Albumin/Globulin [Mass ratio] 1.3 {ratio} Normal 0.9-2.4 [facility] Comment on above: Performed By: #### L 500.4050, L100.0100, L501.9100, L505.5000 ####[facility] [address] [place], [address] ALK PHOS 106 U/L Normal 40-129 [facility] Comment on above: Performed By: #### L 500.4050, L100.0100, L501.9100, L505.5000 ####[facility] [address] [place], [address] ALT [Catalytic activity/Vol] 153 U/L High <=46 [facility] Comment on above: Performed By: #### L 500.4050, L100.0100, L501.9100, L505.5000 ####[facility] [address] [place], [address] AST [Catalytic activity/Vol] 104 U/L High <=37 [facility] Comment on above: Performed By: #### L 500.4050, L100.0100, L501.9100, L505.5000 ####[facility] [address] [place], [address] Bilirubin [Mass/Vol] 0.47 mg/dL Normal 0.00-1.30 [facility] Comment on above: Performed By: #### L 500.4050, L100.0100, L501.9100, L505.5000 ####[facility] [address] [place], [address] BUN/CRE 9.2 RATIO Low 10-20 [facility] Comment on above: Performed By: #### L 500.4050, L100.0100, L501.9100, L505.5000 ####[facility] [address] [place], [address] Calcium [Mass/Vol] 8.9 mg/dL Normal 7.6-11.0 [facility] Comment on above: Performed By: #### L 500.4050, L100.0100, L501.9100, L505.5000 ####[facility] [address] [place], [address] Chloride [Moles/Vol] 97 mmol/L Low 98-108 [facility] Comment on above: Performed By: #### L 500.4050, L100.0100, L501.9100, L505.5000 ####[facility] [address] [place], [address] CO2 [Moles/Vol] 25.7 mmol/L Normal 21.0-32.0 [facility] Comment on above: Performed By: #### L 500.4050, L100.0100, L501.9100, L505.5000 ####[facility] [address] [place], [address] Creatinine [Mass/Vol] 1.06 mg/dL Normal 0.70-1.20 [facility] Comment on above: Performed By: #### L 500.4050, L100.0100, L501.9100, L505.5000 ####[facility] [address] [place], [address] ECRCL 110.53 ml/min Normal 50-250 [facility] Comment on above: Performed By: #### L 500.4050, L100.0100, L501.9100, L505.5000 ####[facility] [address] [place], [address] GAP 16 High 5-15 [facility] Comment on above: Performed By: #### L 500.4050, L100.0100, L501.9100, L505.5000 ####[facility] [address] [place], [address] GFR/1.73 sq M.predicted among non-blacks MDRD (S/P/Bld) [Vol rate/Area] 94 mL/min/{1.73_m2} Normal >60 [facility] Comment on above: Result Comment: mL/m in/1.73m2 CKD-EPI Creatinine Equation (2020) Performed By: #### L 500.4050, L100.0100, L501.9100, L505.5000 ####[facility] [address] [place], [address] Globulin (S) [Mass/Vol] 3.5 g/dL Normal 2.2-4.2 [facility] Comment on above: Performed By: #### L 500.4050, L100.0100, L501.9100, L505.5000 ####[facility] [facility] [address] [place], [address] Glucose [Mass/Vol] 99 mg/dL Normal 70-99 [facility] Comment on above: Performed By: #### L 500.4050, L100.0100, L501.9100, L505.5000 ####[facility] [address] [place], [address] Potassium [Moles/Vol] 3.9 mmol/L Normal 3.3-5.1 [facility] Comment on above: Performed By: #### L 500.4050, L100.0100, L501.9100, L505.5000 ####[facility] [address] [place], [address] Sodium [Moles/Vol] 138 mmol/L Normal 133-145 [facility] Comment on above: Performed By: #### L 500.4050, L100.0100, L501.9100, L505.5000 ####[facility] [address] [place], [address] T PROT 8.0 g/dL Normal 5.9-8.4 [facility] Comment on above: Performed By: #### L 500.4050, L100.0100, L501.9100, L505.5000 ####[facility] [address] [place], [address] Urea nitrogen [Mass/Vol] 10 mg/dL Normal 4-19 [facility] Comment on above: Performed By: #### L 500.4050, L100.0100, L501.9100, L505.5000 ####[facility] [address] [place], [address] Emergency Department Summary on 04-07-2025 Emergency Department Summary [facility] Medical Records Department [address] [place] [address] Emergency Department Summary 04/07/25 MR#: [id number] Acct: [id number] Name: ANNAMARIE LARIOS Rep #: [id number] : 1990 34 From: Jero Mancia MD PCP: Dr. Nikita Sorensen MD Status:ADM [id number] Jero Mancia MD on 04/07/25 at 1650 EKG was obtained and interpreted by myself independently as sinus tachycardia at 108 bpm without ectopy or acute ST changes. No STEMI. Urine for drugs of abuse is negative with the exception of presumed positive for barbiturates which he was most likely given during his last admission for detox. Disposition remains admitted in stable condition. 04/07/25 1650 Cosigner Signature (if applicable): cc: Dr. Nikita Sorensen MD * Signed HPI History of Present Illness Chief Complaint: ETOH Intox Narrative Narrative: 34-year-old male presents with his father for detox from alcohol. He states that he drinks mikes hard lemonade. Last drink was yesterday evening, less than 24 hours ago. His father states that this is the third time he has been here in the last 6 weeks. He was last admitted for detox on March 31, 1 week ago, then released on the . His father states that they got a call from 180 today, and were told to bring him to the emergency department, get him admitted for detox, and they will work on residential rehabilitation. Patient denies any nausea or vomiting, no other symptoms. [facility] Medical History HTN (hypertension) Obesity Tobacco use Anxiety and depression COVID-19 Home Medications ???Medication ???Instructions ???Recorded ???Last Taken ???Type olanzapine 20 mg tablet 20 mg PO QHS 02/13/25 04/01/25 His tory metoprolol tartrate 25 mg tablet 12.5 mg (1/2 x 25 mg) PO BID #30 0 02/16/25 04/07/25 Rx tabs Allergy/AdvReac Type Severity Reaction Status Date / Time Cephalosporins Allergy Hives Verified 04/07/25 14:23 Penicillins Allergy Hives Verified 04/07/25 14:23 Family History Father Hypertension Diabetes Mother No problems noted. Surgical History (Updated 04/07/25 @ 15:59 by Annamarei Leyva) Hx of tympanostomy tubes Hx of tonsillectomy Hx of splenectomy Social History household members: none Smoking Status: Current every day smoker tobacco type: smokeless tobacco Smokeless tobacco user: chewing tobacco alcohol intake: current alcohol intake frequency: 3 or more drinks per day Alcohol type: other details: Prior heavier, sober until 1 wk prior, drinking 2-3 seltzer drinks daily. substance use type: former substance user Date of last use: Previously used cannabis and occasional opiate but is not for many years. ROS ROS ED ROS Narrative Review of systems positive for desire for detox. No nausea or vomiting. No exacerbating or alleviating factors. EXAM Physical Exam Narrative Exam Narrative: Afebrile. Vital signs noted. Nontoxic-appearing. Cardiovascular examination reveals mild tachycardia. Lungs are clear to auscultation bilaterally. Abdomen is soft and nontender without guarding or rebound. Positive bowel sounds. Neurological examination nonfocal, nonlateralizing. Awake, alert, ambulatory in ED to bathroom. Const Vital Signs: 04/07/25 14:20 04/07/25 14:57 Temperature 98.2 F 98.2 F Temperature Source Oral Oral Pulse Rate 122 H 97 Respiratory Rate 18 16 Blood Pressure 175/113 H 144/103 H Blood Pressure Mean 133 116 Blood Pressure Source Monitor Blood Pressure Position Semi-Fowlers Blood Pressure Location Right Arm Pulse Ox 95 Oxygen Delivery Method Room Air Room Air MDM MDM MDM Narrative Medical decision making narrative: I do not feel differential diagnosis is applicable. I reviewed the patient's prior ED visit and inpatient note. He had been on a phenobarb taper. Given his tachycardia and his elevated blood pressure, although he has history of hypertension, he will be given phenobarbital here. Medical clearance labs will be obtained and reviewed. On my interpretation of the laboratory work he has normal white count at 10.6 with hemoglobin slightly hemoconcentrated at 16.9, platelet count 454. He has had thrombophilia when compared to prior labs. CMP is significant for a chloride of 97 with normal BUN and creatinine. Glucose of 99. LFTs are elevated with AST of 104 and ALT of 153 which I think is secondary to his alcohol use. Ethyl alcohol is elevated at 293, so I doubt active withdrawal. However, he still was given phenobarbital here. I will discuss patient with the hospitalist for admission to detox as they are anticipating that this time (more content not included)... Normal [facility] H AND P Exam - [facility] 04-07-2025 H&P Exam - Hospitalist [facility] Medical Records Department [address] [place] [address] H P Exam - Hospitalist 04/07/25 1630 MR#: [id number] Acct: [id number] Name: ANNAMARIE LARIOS Rep #: [id number] : 1990 34 From: Xochilt De Jesus MD PCP: Dr. Nikita Sorensen MD Status:ADM IN Location: [facility] [id number] HPI - General General Date of Admission: 04/07/25 Date of Service: 04/07/25 Chief Complaint: Alcohol use disorder HPI Narrative ANNAMARIE LARIOS, is a 34 M with a history of depression, chewing tobacco use, and alcohol use disorder who presented to [facility] ED 04/07/2025 with family for admission for detox and possible placement. He was admitted 02/13/2025 and subsequently discharged and then Re- presented 03/31/2025 for alcohol detox and was discharged 04/03/2025 however went home and was drinking again. Per report [employer] advised family take him to the ED for admission and they can evaluate for possible inpatient options. Hospitalist contacted for admission. In the ED heart rate 97 with a blood pressure of 144/103, respiratory rate 16 and temp 98.2, pulse ox 95% on room air. White count 10.6 with a hemoglobin of 16.9, platelet count 554, BUN 10 with a creatinine 1.06. AST 104, ALT 153. He reported his last drink was last night however alcohol level 293. On my evaluation patient reports feeling a little bit shaky but ROS otherwise negative, of note he has received phenobarb. Reported to me as well that last drink was last night and said he is only been drinking 1 or 2 white claw since he was discharged however family member at bedside doubts that and it does seem unlikely given alcohol level of 293 and his timeline. Agreeable to admission [facility] Medical History Anxiety and depression COVID-19 HTN (hypertension) Obesity Tobacco use Home Medications ???Medication ???Instructions ???Recorded ???Last Taken ???Type olanzapine 20 mg tablet 20 mg PO QHS 02/13/25 04/01/25 His tory metoprolol tartrate 25 mg tablet 12.5 mg (1/2 x 25 mg) PO BID #30 0 02/16/25 04/07/25 Rx tabs Allergy/AdvReac Type Severity Reaction Status Date / Time Cephalosporins Allergy Hives Verified 04/07/25 14:23 Penicillins Allergy Hives Verified 04/07/25 14:23 Family History Father Hypertension Diabetes Mother No problems noted. Surgical History (Updated 04/07/25 @ 15:59 by Annamarie Leyva) Hx of splenectomy Hx of tonsillectomy Hx of tympanostomy tubes Social History household members: none Smoking Status: Current every day smoker tobacco type: smokeless tobacco Smokeless tobacco user: chewing tobacco alcohol intake: current alcohol intake frequency: 3 or more drinks per day Alcohol type: other details: Prior heavier, sober until 1 wk prior, drinking 2-3 seltzer drinks daily. substance use type: former substance user Date of last use: Previously used cannabis and occasional opiate but is not for many years. ROS ROS Narrative General: Denies fever/chills HENT: Denies headache, denies stuffy nose, denies sore throat EYES: Denies changes in vision Resp: Denies cough, denies shortness of breath Cardiac: Denies chest pain GI: Denies abdominal pain, denies changes in bowel, denies nausea/vomiting : Denies changes in urination Extremity: Denies swelling MSK: Denies weakness Neuro: Denies any numbness/tingling, little bit shaky Heme: Denies any bleeding or bruising Skin: Denies rashes Psychiatric: No complaints voiced Vital Signs Vital Signs Vital Signs: 04/07/25 14:20 04/07/25 14:57 Temperature 98.2 F 98.2 F Temperature Source Oral Oral Pulse Rate 122 H 97 Respiratory Rate 18 16 Blood Pressure 175/113 H 144/103 H Blood Pressure Mean 133 116 Blood Pressure Source Monitor Blood Pressure Position Semi-Fowlers Blood Pressure Location Right Arm Pulse Ox 95 Oxygen Delivery Method Room Air Room Air Weight Weight: 94.801 kg Body Mass Index (BMI) 30.8 Physical Exam Narrative General: Alert, oriented, no apparent distress HEENT: Atraumatic, normocephalic Eyes: Anicteric, normal conjunctiva, extraocular movements grossly intact Neck: Supple Respiratory: Clear to auscultation bilaterally, normal respiratory effort Cardiovascular: Regular rate and rhythm GI: Soft, nontender, nondistended Extremities: No edema Musculoskeletal: Moving all extremities Neuro: No overt focal neurological deficits Skin: No rashes appreciated Psych: Superficially cooperative Results Lab / Micro Data 04/07/25 15:03 04/07/25 15:03 Labs: Laboratory Results - last 24 hr 04/07/25 15:03: WBC 10.6, RBC 5.87, Hgb 16.9 H, Hct 49.7, MCV 84.7, MCH 28.8, MCHC 34.0, RDW Std Deviation 43.0, RDW Coeff of Va (more content not included)... Normal [facility] Urine Drug Screen (VISTA)on 04-07-2025 AMPHETAMINES Negative Normal <1000 ng/mL [facility] Comment on above: Performed By: #### L 500.4050, L100.0100, L501.9100, L505.5000 ####[facility] [address] [place], [place], [address] BARBITIURATES Positive Normal < 200 ng/mL [facility] Comment on above: Result Comment: If c onfirmation testing is needed, a separate order will be required to send out testing to the reference laboratory. Performed By: #### L 500.4050, L100.0100, L501.9100, L505.5000 ####[facility] [address] [place], [address] BENZODIAZIPINE Negative Normal < 200 ng/mL [facility] Comment on above: Performed By: #### L 500.4050, L100.0100, L501.9100, L505.5000 ####[facility] [address] [place], [address] BUP Ur Drug Scr Negative Normal < 200 ng/mL [facility] Comment on above: Performed By: #### L 500.4050, L100.0100, L501.9100, L505.5000 ####[facility] [address] [facility] [address] COCAINE Negative Normal < 300 ng/mL [facility] Comment on above: Performed By: #### L 500.4050, L100.0100, L501.9100, L505.5000 ####[facility] [address] [place], [place], [phone] Fentanyl Negative Normal <5 ng/mL [facility] Comment on above: Result Comment: CONF IRMATORY TESTING FOR ALL POSITIVE URINE DRUG SCREEN RESULTS WILL ONLY BE SENT OUT UPON PHYSICIAN ORDER. [facility] Urine Drug Screen methods provide only preliminary analytical test results. A more specific alternate chemical method must be used in order to obtain a confirmed analytical result. Gas chromatography/mass spectrometery (GC/MS) is the preferred confirmatory method. Clinical consideration and professional judgement should be applied to any drug of abuse test result, particularly when preliminary positive results are used. Urine TCA testing must be ordered separately. Use test mnemonic: UTCA Performed By: #### L 500.4050, L100.0100, L501.9100, L505.5000 ####[facility] [address] [place], [address] METHADONE Negative Normal < 300 ng/mL [facility] Comment on above: Performed By: #### L 500.4050, L100.0100, L501.9100, L505.5000 ####[facility] [address] [place] [id number] OPIATES Negative Normal < 300 ng/mL [facility] Comment on above: Performed By: #### L 500.4050, L100.0100, L501.9100, L505.5000 ####[facility] [address] [place], [address] OXYCODONE Negative Normal < 100 ng/mL [facility] Comment on above: Performed By: #### L 500.4050, L100.0100, L501.9100, L505.5000 ####[facility] [address] [place], [place], [phone] PCP Negative Normal < 25 ng/mL [facility] Comment on above: Performed By: #### L 500.4050, L100.0100, L501.9100, L505.5000 ####[facility] [address] [place] [address] THC Negative Normal < 50 ng/mL [facility] Comment on above: Performed By: #### L 500.4050, L100.0100, L501.9100, L505.5000 ####[facility] [address] [place], [place], [phone] Alcohol, Blood (Medical)-Ser umon 03-31-2025 SERUM ETOH 289.0 mg/dL High <=10.0 [facility] Comment on above: Result Comment: This test is for medical purposes only. The legal definition of intoxication varies according to local law. Performed By: #### L 505.5000, L100.0100, L501.5200, L501.9100, L500.3400, L500.2500 ####[facility] [address] [place], [address] Basic Metabolic Profile (BMP )on 03-31-2025 BUN/CRE 9.7 RATIO Low 10-20 [facility] Comment on above: Order Comment: Comme nts: may add to ED labs Performed By: #### L 505.5000, L100.0100, L501.5200, L501.9100, L500.3400, L500.2500 ####[facility] [address] [place], [address] Calcium [Mass/Vol] 9.3 mg/dL Normal 7.6-11.0 [facility] Comment on above: Order Comment: Comme nts: may add to ED labs Performed By: #### L 505.5000, L100.0100, L501.5200, L501.9100, L500.3400, L500.2500 ####[facility] [address] [place], [address] Chloride [Moles/Vol] 100 mmol/L Normal 98-108 [facility] Comment on above: Order Comment: Comme nts: may add to ED labs Performed By: #### L 505.5000, L100.0100, L501.5200, L501.9100, L500.3400, L500.2500 ####[facility] [address] [place], [address] CO2 [Moles/Vol] 26.2 mmol/L Normal 21.0-32.0 [facility] Comment on above: Order Comment: Commgricelda nts: may add to ED labs Performed By: #### L 505.5000, L100.0100, L501.5200, L501.9100, L500.3400, L500.2500 ####[facility] [address] [place], [address] Creatinine [Mass/Vol] 1.01 mg/dL Normal 0.70-1.20 [facility] Comment on above: Order Comment: Commgricelda nts: may add to ED labs Performed By: #### L 505.5000, L100.0100, L501.5200, L501.9100, L500.3400, L500.2500 ####[facility] [address] [place], [address] ECRCL 116.66 ml/min Normal 50-250 [facility] Comment on above: Order Comment: Comme nts: may add to ED labs Performed By: #### L 505.5000, L100.0100, L501.5200, L501.9100, L500.3400, L500.2500 ####[facility] [address] [place], [address] GAP 18 High 5-15 [facility] Comment on above: Order Comment: Comme nts: may add to ED labs Performed By: #### L 505.5000, L100.0100, L501.5200, L501.9100, L500.3400, L500.2500 ####[facility] [address] [place], [address] GFR/1.73 sq M.predicted among non-blacks MDRD (S/P/Bld) [Vol rate/Area] 99 mL/min/{1.73_m2} Normal >60 [facility] Comment on above: Order Comment: Comme nts: may add to ED labs Result Comment: mL/m in/1.73m2 CKD-EPI Creatinine Equation (2020) Performed By: #### L 505.5000, L100.0100, L501.5200, L501.9100, L500.3400, L500.2500 ####[facility] [address] [place], [address] Glucose [Mass/Vol] 119 mg/dL High 70-99 [facility] Comment on above: Order Comment: Comme nts: may add to ED labs Performed By: #### L 505.5000, L100.0100, L501.5200, L501.9100, L500.3400, L500.2500 ####[facility] [address] [place], [address] Potassium [Moles/Vol] 3.8 mmol/L Normal 3.3-5.1 [facility] Comment on above: Order Comment: Comme nts: may add to ED labs Performed By: #### L 505.5000, L100.0100, L501.5200, L501.9100, L500.3400, L500.2500 ####[facility] [address] [place], [address] Sodium [Moles/Vol] 143 mmol/L Normal 133-145 [facility] Comment on above: Order Comment: Comme nts: may add to ED labs Performed By: #### L 505.5000, L100.0100, L501.5200, L501.9100, L500.3400, L500.2500 ####[facility] [address] [place], [address] Urea nitrogen [Mass/Vol] 10 mg/dL Normal 4-19 [facility] Comment on above: Order Comment: Comme nts: may add to ED labs Performed By: #### L 505.5000, L100.0100, L501.5200, L501.9100, L500.3400, L500.2500 ####[facility] [address] [place], [address] CBC W/Diff, Automatedon 10-0 SMEAR COMMENT SCANNED Normal [facility] Comment on above: Result Comment: LYMP HOCYTOSIS NOTED MONOCYTOSIS NOTED Performed By: #### L 505.5000, L100.0100, L501.5200, L501.9100, L500.3400, L500.2500 ####[facility] [address] [place], [address] Emergency Department Summary on 03-31-2025 Emergency Department Summary [facility] Medical Records Department [address] [place] [address] Emergency Department Summary 03/31/25 MR#: [id number] Acct: [id number] Name: ANNAMARIE LARIOS Rep #: [id number] : 1990 34 From: Deep Holman DO PCP: Dr. Nikita Sorensen MD Status:ADM IN Location: MS3 [id number] HPI History of Present Illness Chief Complaint: ETOH Intox Informant: patient Onset/Context/Timing Onset: Today Context: Gradual Onset Timing: Continuous Worsened by: Nothing Relieved by: Nothing Associated Symptoms Associated Symptoms: Negative for vomiting*, diarrhea*, fever*, rash*, seizure, tremor, palpatations, suicidal ideation or homicidal ideation Narrative Narrative: Patient presents requesting detox from alcohol. Patient states he drinks 2-3 white claws cans per day. Patient states his last drink was approximately 4 PM today. Patient states he has been to detox in the past. Patient states he was recently admitted for detox in December. Patient denies any suicidal or homicidal ideations. Patient denies any nausea or vomiting. Patient denies any fevers or chills. Patient denies any seizures or tremors. [facility] Medical History HTN (hypertension) Obesity Tobacco use Anxiety and depression COVID-19 Home Medications ???Medication ???Instructions ???Recorded ???Last Taken ???Type olanzapine 20 mg tablet 20 mg PO QHS 02/13/25 Unknown Hist ory metoprolol tartrate 25 mg tablet 12.5 mg (1/2 x 25 mg) PO BID #30 0 02/16/25 Unknown Rx tabs Allergy/AdvReac Type Severity Reaction Status Date / Time Cephalosporins Allergy Hives Verified 03/31/25 20:47 Penicillins Allergy Hives Verified 03/31/25 20:47 Family History (Updated 03/31/25 @ 21:[address] Jo-Ann Reynolds MD) Father Hypertension Diabetes Mother No problems noted. Surgical History Hx of tympanostomy tubes History of adenectomy Hx of tonsillectomy Hx of splenectomy Social History (Updated 03/31/25 @ 21:[address] Jo-Ann Reynolds MD) household members: none Smoking Status: Former smoker Smokeless tobacco user: chewing tobacco alcohol intake: current alcohol intake frequency: 3 or more drinks per day Alcohol type: other details: Prior heavier, sober until 1 wk prior, drinking 2-3 seltzer drinks daily. substance use type: former substance user Date of last use: Previously used cannabis and occasional opiate but is not for many years. ROS ROS ED Constitutional Constitutional ED: Denies [...] rash Neurologic Neurologic: Denies headache(s) or weakness Allergic/Immunologic Allergic/Immunologic ED: Denies mouth swelling or urticaria EXAM Physical Exam Const Vital Signs: 03/31/25 20:45 03/31/25 20:50 03/31/25 22:04 Temperature 98.3 F 98.2 F Temperature Source Temporal Oral Pulse Rate 97 84 94 Respiratory Rate 18 16 18 Blood Pressure 160/90 H 135/98 H 125/1 H Blood Pressure Mean 113 110 42 Blood Pressure Source Monitor Blood Pressure Position Semi-Fowlers Blood Pressure Location Right Arm Pulse Ox 97 93 93 Oxygen Delivery Method Room Air Room Air Room Air 03/31/25 22:06 Temperature 98.9 F Temperature Source Pulse Rate 94 Respiratory Rate 18 Blood Pressure 125/1 H Blood Pressure Mean 42 Blood Pressure Source Blood Pressure Position Blood Pressure Location Pulse Ox 93 Oxygen Delivery Method Positive well nourished and well developed General Appearance ED: well developed and NAD HEENT Reports moist mucous membranes atraumatic Neck supple and no JVD Resp normal respiratory effort and clear to auscultation bilaterally Cardio regular rate and regular rhythm GI soft to palpation, non-tender and non-distended Extremity General Extremety ED: Negative for edema or tenderness General Extremity: Negative for edema Neuro oriented x3, CN's II-XII intact bilaterally and no sensory deficits noted Erica Coma Scale: document GCS findings Spontaneous Obeys Commands Oriented 15 Sensorium / Orientation: alert Speech: speech normal Motor Exam: strength 5/5 throughout Psych mental status grossly normal and thought process normal MDM MDM MDM Narrative Medical decision making narrative: Medic (more content not included)... Normal [facility]P Exam - Hospitalist [facility] Medical Records Department [address] [place] [address] H P Exam - Hospitalist 03/31/252119 MR#: [id number] Acct: [id number] Name: ANNAMARIE LARIOS Rep #: [id number] : 1990 34 From: Jo-Ann Reynolds MD PCP: Dr. Nikita Sorensen MD Status:REG ER Location: ED HPI - General General Date of Admission: 03/31/25 Date of Service: 03/31/25 Chief Complaint: EtOH detoxification request. HPI Narrative The patient is a 34 y/o M w/ PMHx: Obesity, Anxiety and Depression/mood disorder, Chew/Snuff tobacco use (heavy), EtOH abuse (prior heavier 12 pack seltzers daily now down to 2-3 over the last week, last drink at 4 PM on day of presentation), Former cannabis and occasional opiate use but clean for several years, HTN who presents to [facility] ED on 03/31/2025 secondary to requested alcohol detoxification reporting that he had actually been sober until 1 week prior unfortunately when he started drinking approximately 2-3 seltzer drinks daily with last as noted at 4 PM on day of presentation but eagerness to again claim sober status prompting his evaluation. He denies any withdrawal symptoms at this time but states likely in the next hour or so he would expect to have notable nausea, tremors, agitation and tactile disturbances. He is very nervous about withdrawal and tearful with discussions. Workup in the ED included T98.2, heart rate 84, BP 135/98, respiratory rate 16, 93% on room air, CBC with WC 12.5, Hulme 116.2, platelet 607 with lymphocytosis, pending BMP upon requested evaluation of patient as well as at the alcohol level and UDS. [facility] Medical History HTN (hypertension) Obesity Tobacco use Anxiety and depression COVID-19 Home Medications ???Medication ???Instructions ???Recorded ???Last Taken ???Type fluoxetine 20 mg capsule 20 mg PO DAILY 02/13/25 Unknown Hi story olanzapine 20 mg tablet 20 mg PO QHS 02/13/25 Unknown Hist ory metoprolol tartrate 25 mg tablet 12.5 mg (1/2 x 25 mg) PO BID #30 0 02/16/25 Unknown Rx tabs Allergy/AdvReac Type Severity Reaction Status Date / Time Cephalosporins Allergy Hives Verified 03/31/25 20:47 Penicillins Allergy Hives Verified 03/31/25 20:47 Family History (Updated 03/31/25 @ 21:[address] Jo-Ann Reynolds MD) Father Hypertension Diabetes Mother No problems noted. Surgical History Hx of tympanostomy tubes History of adenectomy Hx of tonsillectomy Hx of splenectomy Social History (Updated 03/31/25 @ 21:[address] Jo-Ann Reynolds MD) household members: none Smoking Status: Former smoker Smokeless tobacco user: chewing tobacco alcohol intake: current alcohol intake frequency: 3 or more drinks per day Alcohol type: other details: Prior heavier, sober until 1 wk prior, drinking 2-3 seltzer drinks daily. substance use type: former substance user Date of last use: Previously used cannabis and occasional opiate but is not for many years. ROS ROS Narrative Admission Review of Systems: CONSTITUTIONAL: No weight loss, fever, chills, + weakness or fatigue. HEENT: Eyes: No visual loss, blurred vision, double vision or yellow sclerae. Ears, Nose, Throat: No hearing loss, sneezing, congestion, runny nose or sore throat. SKIN: No rash or itching, lesions, wounds except + occasional ecchymoses, abrasion. CARDIOVASCULAR: No chest pain, chest pressure or chest discomfort, palpitations, edema, orthopnea, syncopal events. RESPIRATORY: No shortness of breath, cough or sputum, wheezing, hemoptysis. GASTROINTESTINAL: No anorexia, nausea, vomiting or diarrhea, abdominal pain, melena, BRBPR. GENITOURINARY: No dysuria, frequency, urgency or retention. NEUROLOGICAL: No headache, dizziness, syncope, paralysis, ataxia, numbness or tingling in the extremities, focal weakness, change in bowel or bladder control, seizure. MUSCULOSKELETAL: + muscle, back pain, joint pain or stiffness. HEMATOLOGIC: No anemia, bleeding or bruising. LYMPHATICS: No enlarged nodes. No history of splenectomy. PSYCHIATRIC: + History of anxiety depression/mood disorder. ENDOCRINOLOGIC: No reports of sweating, cold or heat intolerance. No polyuria or polydipsia. ALLERGIES: + History of hives. Vital Signs Vital Signs Vital Signs: 03/31/25 20:45 03/31/25 20:50 Temperature 98.3 F 98.2 F Temperature Source Temporal Oral Pulse Rate 97 84 Respiratory Rate 18 16 Blood Pressure 160/90 H 135/98 H Blood Pressure Mean 113 110 Blood Pressure Source Monitor Blood Pressure Position Semi-Fowlers Blood Pressure Location Right Arm Pulse Ox 97 93 Oxygen Delivery Method Room Air Room Air Weight Weight: 211 lb 8 oz Body Mass Index (BMI) 31.2 Physical Exam Narrative Physic (more content not included)... Normal [facility] Liver Profileon 03-31-2025 Albumin [Mass/Vol] 4.5 g/dL Normal 3.5-5.0 [facility] Comment on above: Order Comment: Comme nts: may add to ED labs Performed By: #### L 505.5000, L100.0100, L501.5200, L501.9100, L500.3400, L500.2500 ####[facility] [address] [place], [address] ALK PHOS 73 U/L Normal 40-129 [facility] Comment on above: Order Comment: Comme nts: may add to ED labs Performed By: #### L 505.5000, L100.0100, L501.5200, L501.9100, L500.3400, L500.2500 ####[facility] [address] [place], [address] ALT [Catalytic activity/Vol] 47 U/L Normal <=46 [facility] Comment on above: Order Comment: Comme nts: may add to ED labs Performed By: #### L 505.5000, L100.0100, L501.5200, L501.9100, L500.3400, L500.2500 ####[facility] [address] [place], [address] AST [Catalytic activity/Vol] 54 U/L High <=37 [facility] Comment on above: Order Comment: Comme nts: may add to ED labs Performed By: #### L 505.5000, L100.0100, L501.5200, L501.9100, L500.3400, L500.2500 ####[facility] [address] [place], [address] Bilirubin [Mass/Vol] 0.47 mg/dL Normal 0.00-1.30 [facility] Comment on above: Order Comment: Comme nts: may add to ED labs Performed By: #### L 505.5000, L100.0100, L501.5200, L501.9100, L500.3400, L500.2500 ####[facility] [address] [place], [address] Bilirubin.direct [Mass/Vol] 0.15 mg/dL Normal 0.00-0.30 [facility] Comment on above: Order Comment: Comme nts: may add to ED labs Performed By: #### L 505.5000, L100.0100, L501.5200, L501.9100, L500.3400, L500.2500 ####[facility] [address] [place], [address] Globulin (S) [Mass/Vol] 3.4 g/dL Normal 2.2-4.2 [facility] Comment on above: Order Comment: Comme nts: may add to ED labs Performed By: #### L 505.5000, L100.0100, L501.5200, L501.9100, L500.3400, L500.2500 ####[facility] [address] [place], [address] T PROT 7.9 g/dL Normal 5.9-8.4 [facility] Comment on above: Order Comment: Comme nts: may add to ED labs Performed By: #### L 505.5000, L100.0100, L501.5200, L501.9100, L500.3400, L500.2500 ####[facility] [address] [place], [address] Magnesiumon 03-31-2025 Magnesium [Mass/Vol] 2.2 mg/dL Normal 1.5-2.2 [facility] Comment on above: Order Comment: Comme nts: may add to ED labs Performed By: #### L 505.5000, L100.0100, L501.5200, L501.9100, L500.3400, L500.2500 ####[facility] [address] [place], [address] Phosphoruson 03-31-2025 Phosphate [Mass/Vol] 3.9 mg/dL Normal 2.7-4.5 [facility] Comment on above: Order Comment: Comme nts: May add to ED labs Performed By: #### L 501.2300 #### [facility] [address] [place], [address] Urine Drug Screen (VISTA)on 03-31-2025 AMPHETAMINES Negative Normal <1000 ng/mL [facility] Comment on above: Performed By: #### L 505.5000, L100.0100, L501.5200, L501.9100, L500.3400, L500.2500 ####[facility] [address] [place], [address] BARBITIURATES Negative Normal < 200 ng/mL [facility] Comment on above: Performed By: #### L 505.5000, L100.0100, L501.5200, L501.9100, L500.3400, L500.2500 ####[facility] [address] [place], [address] BENZODIAZIPINE Negative Normal < 200 ng/mL [facility] Comment on above: Performed By: #### L 505.5000, L100.0100, L501.5200, L501.9100, L500.3400, L500.2500 ####[facility] [address] [place], [address] BUP Ur Drug Scr Negative Normal < 200 ng/mL [facility] Comment on above: Performed By: #### L 505.5000, L100.0100, L501.5200, L501.9100, L500.3400, L500.2500 ####[facility] [address] [place], [address] COCAINE Negative Normal < 300 ng/mL [facility] Comment on above: Performed By: #### L 505.5000, L100.0100, L501.5200, L501.9100, L500.3400, L500.2500 ####[facility] [address] [place], [place], [phone] Fentanyl Negative Normal <5 ng/mL [facility] Comment on above: Result Comment: CONF IRMATORY TESTING FOR ALL POSITIVE URINE DRUG SCREEN RESULTS WILL ONLY BE SENT OUT UPON PHYSICIAN ORDER. [facility] [employer] Urine Drug Screen methods provide only preliminary analytical test results. A more specific alternate chemical method must be used in order to obtain a confirmed analytical result. Gas chromatography/mass spectrometery (GC/MS) is the preferred confirmatory method. Clinical consideration and professional judgement should be applied to any drug of abuse test result, particularly when preliminary positive results are used. Urine TCA testing must be ordered separately. Use test mnemonic: UTCA Performed By: #### L 505.5000, L100.0100, L501.5200, L501.9100, L500.3400, L500.2500 ####[facility] [address] [place], [place], [phone] METHADONE Negative Normal < 300 ng/mL [facility] Comment on above: Performed By: #### L 505.5000, L100.0100, L501.5200, L501.9100, L500.3400, L500.2500 ####[facility] [address] [place], [address] OPIATES Negative Normal < 300 ng/mL [facility] Comment on above: Performed By: #### L 505.5000, L100.0100, L501.5200, L501.9100, L500.3400, L500.2500 ####[facility] [address] [place], [address] OXYCODONE Negative Normal < 100 ng/mL [facility] Comment on above: Performed By: #### L 505.5000, L100.0100, L501.5200, L501.9100, L500.3400, L500.2500 ####[facility] [address] [place], [address] PCP Negative Normal < 25 ng/mL [facility] Comment on above: Performed By: #### L 505.5000, L100.0100, L501.5200, L501.9100, L500.3400, L500.2500 ####[facility] [address] [place], [address] THC Negative Normal < 50 ng/mL [facility] Comment on above: Performed By: #### L 505.5000, L100.0100, L501.5200, L501.9100, L500.3400, L500.2500 ####[facility] [address] [place], [address] Discharge Instructionon 08-2 Discharge Instruction [facility] Medical Records Department [address] [place] [address] Instructions for Home/Discharge Instructions 02/16/25 1059 MR#: [id number] Acct: [id number] Name: ANNAMARIE LARIOS Rep #: [id number] : 1990 34 From: Angela Chau MD [...] Dr. Xochilt De Jesus MD Signed Normal [facility] Echocardiogram study reportO rdered By: Karo Cleaning on 02-15-2025 Study report [facility] Cardiovascular Services [address] [place] [address] Echo Complete 02/14/25 1454 MR#: [id number] Acct: [id number] Name: ANNAMARIE LARIOS Rep #:[id number] : 1990 34 From: Karo Espinoza Attending Dr: Dr. Angela Chau MD Status: ADM IN Ordering Dr: Angela Chau MD Date: 02/14/25 Location: [facility] [place] Sex: M C Admitted: 02/13/25 Reason For [...] Dictated: 02/14/25 1454 Date Transcribed: 02/15/25 1202 Police Inspector: Signed [facility] Absolute lymphocyte countOrd ered By: Xochilt De Jesus on 02-14-2025 Lymphocytes Auto (Unsp spec) [#/Vol] 2.85 10*3/uL 0.83-4.51 [facility] Absolute neutrophil countOrd ered By: Xochilt De Jesus on 02-14-2025 Neutrophils (Bld) [#/Vol] 8.4 10*3/uL High 2.0-7.7 [facility] Anion gap in Serum or Plasma Ordered By: Xochilt De Jesus on 02-14-2025 Anion gap [Moles/Vol] 15 mmol/L 5-15 [facility] Automated lymphocyte count a s percentage of total leukocytesOrdered By: Xochilt De Jesus on 02-14-2025 Lymphocytes/100 WBC Auto (Unsp spec) 22.1 % 19-41 [facility] BUN/creatinine ratioOrdered By: Xochilt De Jesus on 02-14-2025 Urea nitrogen/Creatinine [Mass ratio] 9.8 mg/mg Low 10-20 [facility] Basophil percentageOrdered B y: Xochilt De Jesus on 02-14-2025 Basophils/100 WBC (Bld) 0.9 % 0-1 [facility] Bilirubin, totalOrdered By: Xochilt De Jesus on 02-14-2025 Bilirubin [Mass/Vol] 0.88 mg/dL 0.00-1.30 [facility] CBC W/Diff, Automatedon 01-28 Absolute Lymph 2.85 X10 3/uL Normal 0.83-4.51 [facility] Comment on above: Performed By: #### L 100.0100, L500.4050 ####[facility] [address] [place], [address] Absolute Neut 8.4 X10 3/uL High 2.0-7.7 [facility] Comment on above: Performed By: #### L 100.0100, L500.4050 ####[facility] [address] [place], [address] Basophils/100 WBC (Bld) 0.9 % Normal 0-1 [facility] Comment on above: Performed By: #### L 100.0100, L500.4050 ####[facility] [address] [place], [address] Eosinophils/100 WBC (Bld) 2.1 % Normal 0-5 [facility] Comment on above: Performed By: #### L 100.0100, L500.4050 ####[facility] [address] [place], [address] Erythrocyte distribution width (RBC) [Ratio] 15.3 % High 11.6-14.6 [facility] Comment on above: Performed By: #### L 100.0100, L500.4050 ####[facility] [address] [place], [address] Hematocrit (Bld) [Volume fraction] 43.7 % Normal 40-54 [facility] Comment on above: Performed By: #### L 100.0100, L500.4050 ####[facility] [address] [place], [address] Hemoglobin (Bld) [Mass/Vol] 14.8 g/dL Normal 13.0-16.5 [facility] Comment on above: Performed By: #### L 100.0100, L500.4050 ####[facility] [address] [place], [address] IG% 0.500 Normal 0.0-0.9 [facility] Comment on above: Result Comment: IG% - Immature Granulocytes (promyelocytes, myelocytes and metamyelocytes) > 1% indicates that a LEFT SHIFT is Present. Performed By: #### L 100.0100, L500.4050 ####[facility] [address] [place], [address] Lymphocytes/100 WBC (Bld) 22.1 % Normal 19-41 [facility] Comment on above: Performed By: #### L 100.0100, L500.4050 ####[facility] [address] [place], [address] MCH (RBC) [Entitic mass] 29.0 pg Normal 27.0-32.0 [facility] Comment on above: Performed By: #### L 100.0100, L500.4050 ####[facility] [address] [place], [address] MCHC (RBC) [Mass/Vol] 33.9 g/dL Normal 32-36 [facility] Comment on above: Performed By: #### L 100.0100, L500.4050 ####[facility] [address] [place], [address] MCV (RBC) [Entitic vol] 85.7 fL Normal 80-94 [facility] Comment on above: Performed By: #### L 100.0100, L500.4050 ####[facility] [address] [place], [address] Monocytes/100 WBC (Bld) 9.2 % Normal 0-10 [facility] Comment on above: Performed By: #### L 100.0100, L500.4050 ####[facility] [address] [place], [address] Neutrophils/100 WBC (Bld) 65.2 % Normal 47-70 [facility] Comment on above: Performed By: #### L 100.0100, L500.4050 ####[facility] [address] [place], [address] Nucleated RBC (Bld) [#/Vol] 0 10*3/uL Normal 0-5 [facility] Comment on above: Performed By: #### L 100.0100, L500.4050 ####[facility] [address] [place], [address] Platelet mean volume (Bld) [Entitic vol] 10.8 fL Normal 6.2-12.0 [facility] Comment on above: Performed By: #### L 100.0100, L500.4050 ####[facility] [address] [place], [address] Platelets (Bld) [#/Vol] 309 10*3/uL Normal 150-450 [facility] Comment on above: Performed By: #### L 100.0100, L500.4050 ####[facility] [address] [place], [address] RBC (Bld) [#/Vol] 5.10 10*6/uL Normal 4.6-6.[address] [facility] Comment on above: Performed By: #### L 100.0100, L500.4050 ####[facility] [address] [place], [address] RDW SD 48.2 fl High 35.1-43.9 [facility] Comment on above: Performed By: #### L 100.0100, L500.4050 ####[facility] [address] [place], [address] WBC (Bld) [#/Vol] 12.9 10*3/uL High 4.4-11.[address] [facility] Comment on above: Performed By: #### L 100.0100, L500.4050 ####[facility] [address] [place], [address] CTA Chest W/WO Contraston CTA Chest W/WO Contrast [facility] Imaging Services [address] [place] [address] CTA Chest W/WO Contrast MR#: [id number] Acct: [id number] Name: ANNAMARIE LARIOS Rep #: [id number] : 1990 M 34 From: Vinnie Barrett MD PCP: Dr. Nikita Sorensen MD Status: ADM IN Study: CTA Chest W/WO Contrast Date of Exam: 02/14/25 Exam# [id number] Ordering Dr: Angela Chau MD PROCEDURE: CTA [...] 2. Prominent diffuse hepatic steatosis. Reading Location: [id number] CC: Dr. Nikita Sorensen MD; Dr. Angela Chau MD Police Inspector: Signed Normal [facility] Carbon dioxide, total [Moles /volume] in Central venous bloodOrdered By: Xochilt De Jesus on 02-14-2025 CO2 [Moles/Vol] 26.4 mmol/L 21.0-32.0 [facility] Chloride assayOrdered By: Darlene De Jesus on 02-14-2025 Chloride [Moles/Vol] 98 mmol/L 98-108 [facility] Comprehensive Metabolic Prof ilon 02-14-2025 Albumin [Mass/Vol] 3.8 g/dL Normal 3.5-5.0 [facility] Comment on above: Performed By: #### L 100.0100, L500.4050 ####[facility] [address] [place], [address] Albumin/Globulin [Mass ratio] 1.4 {ratio} Normal 0.9-2.4 [facility] Comment on above: Performed By: #### L 100.0100, L500.4050 ####[facility] [address] [place], [address] ALK PHOS 70 U/L Normal 40-129 [facility] Comment on above: Performed By: #### L 100.0100, L500.4050 ####[facility] [address] [place], [address] ALT [Catalytic activity/Vol] 145 U/L High <=46 [facility] Comment on above: Performed By: #### L 100.0100, L500.4050 ####[facility] [address] [place], [address] AST [Catalytic activity/Vol] 168 U/L High <=37 [facility] Comment on above: Performed By: #### L 100.0100, L500.4050 ####[facility] [address] [place], [address] Bilirubin [Mass/Vol] 0.88 mg/dL Normal 0.00-1.30 [facility] Comment on above: Performed By: #### L 100.0100, L500.4050 ####[facility] [address] [place], [address] BUN/CRE 9.8 RATIO Low 10-20 [facility] Comment on above: Performed By: #### L 100.0100, L500.4050 ####[facility] [address] [place], [address] Calcium [Mass/Vol] 8.3 mg/dL Normal 7.6-11.0 [facility] Comment on above: Performed By: #### L 100.0100, L500.4050 ####[facility] [address] [place], [address] Chloride [Moles/Vol] 98 mmol/L Normal 98-108 [facility] Comment on above: Performed By: #### L 100.0100, L500.4050 ####[facility] [address] [place], [address] CO2 [Moles/Vol] 26.4 mmol/L Normal 21.0-32.0 [facility] Comment on above: Performed By: #### L 100.0100, L500.4050 ####[facility] [address] [place], [address] Creatinine [Mass/Vol] 0.91 mg/dL Normal 0.70-1.20 [facility] Comment on above: Performed By: #### L 100.0100, L500.4050 ####[facility] [address] [place], [address] ECRCL 124.65 ml/min Normal 50-250 [facility] Comment on above: Performed By: #### L 100.0100, L500.4050 ####[facility] [address] [place], [address] GAP 15 Normal 5-15 [facility] Comment on above: Performed By: #### L 100.0100, L500.4050 ####[facility] [address] [place], [address] GFR/1.73 sq M.predicted among non-blacks MDRD (S/P/Bld) [Vol rate/Area] 112 mL/min/{1.73_m2} Normal >60 [facility] Comment on above: Result Comment: mL/m in/1.73m2 CKD-EPI Creatinine Equation (2020) Performed By: #### L 100.0100, L500.4050 ####[facility] [address] [place], [address] Globulin (S) [Mass/Vol] 2.7 g/dL Normal 2.2-4.2 [facility] Comment on above: Performed By: #### L 100.0100, L500.4050 ####[facility] [address] [place], [address] Glucose [Mass/Vol] 80 mg/dL Normal 70-99 [facility] Comment on above: Performed By: #### L 100.0100, L500.4050 ####[facility] [address] [place], [address] Potassium [Moles/Vol] 3.6 mmol/L Normal 3.3-5.1 [facility] Comment on above: Performed By: #### L 100.0100, L500.4050 ####[facility] [address] [place], [address] Sodium [Moles/Vol] 139 mmol/L Normal 133-145 [facility] Comment on above: Performed By: #### L 100.0100, L500.4050 ####[facility] [address] [place], [address] T PROT 6.5 g/dL Normal 5.9-8.4 [facility] Comment on above: Performed By: #### L 100.0100, L500.4050 ####[facility] [address] [place], [address] Urea nitrogen [Mass/Vol] 9 mg/dL Normal 4-19 [facility] Comment on above: Performed By: #### L 100.0100, L500.4050 ####[facility] [address] [place], [address] D-Dimer Quantitative (DVT/PE )on 02-14-2025 D-DIMER QUANT 2.65 FEU/ug/m Invalid Interpretation Code 0.27-0.49 [facility] Comment on above: Result Comment: D-Di bhargav ELEVATED (>0.49): Additional studies and clinical assessments are indicated to conclude diagnosis of: Deep Vein Thrombosis (DVT) or Pulmonary Embolism (PE) CRITICAL VALUE CALLED TO KAREEM GONZALEZ 02/14/25 Jesus Flor. RESULTS READ BACK BY SAME. Performed By: #### L 300.8000, L501.9520 ####[facility] [address] [place], [address] Echo Completeon 02-14-2025 Echo Complete [facility] Cardiovascular Services [address] [place] [address] Echo Complete 02/14/25 1454 MR#: [id number] Acct: [id number] Name: ANNAMARIE LARIOS Rep #: [id number] : 1990 34 From: Karo Cleaning MD Attending Dr: Dr. Angela Chau MD Status: AD M IN Ordering Dr: Angela Chau MD Date: 02/14/25 Location: [facility] Sex: M C Admitted: 02/13/25 Reason For [...] Dictated: 02/14/25 1454 Date Transcribed: 02/15/25 1202 Police Inspector: Signed Normal [facility] Eosinophil percentageOrdered By: Xochilt De Jesus on 02-14-2025 Eosinophils/100 WBC (Bld) 2.1 % 0-5 [facility] Erythrocyte distribution wid th ratioOrdered By: Xochilt De Jesus on 02-14-2025 Erythrocyte distribution width (RBC) [Ratio] 15.3 % High 11.6-14.6 [facility] Erythrocyte distribution wid th standard deviationOrdered By: Xochilt De Jesus on 02-14-2025 Erythrocyte distribution width (RBC) [Ratio] 48.2 fl High 35.1-43.9 [facility] [facility] Glomerular filtration rate ( GFR) estimation/1.73 sq m using serum, plasma, or whole bOrdered By: Xochilt De Jesus on 02-14-2025 GFR/1.73 sq M.predicted among non-blacks MDRD (S/P/Bld) [Vol rate/Area] 112 mL/min/{1.73_m2} >60 [facility] Comment on above: mL/min/1.73m2 CKD-EP I Creatinine Equation (2020) Hematocrit Auto (Bld) [Volum e fraction]Ordered By: Xochilt De Jesus on 02-14-2025 Hematocrit (Bld) [Volume fraction] 43.7 % 40-54 [facility] Hemoglobin measurementOrdere d By: Xochilt De Jesus on 02-14-2025 Hemoglobin (Bld) [Mass/Vol] 14.8 g/dL 13.0-16.5 [facility] Immature granulocytes/100 WB C Auto (Bld)Ordered By: Xochilt De Jesus on 02-14-2025 Immature granulocytes/100 WBC (Bld) 0.500 % 0.0-0.9 [facility] Comment on above: IG% - Immature Granu locytes (promyelocytes, myelocytes and metamyelocytes) > 1% indicates that a LEFT SHIFT is Present. Laboratory - Chemistry and C hemistry - challengeOrdered By: Xochilt De Jesus on 02-14-2025 AST [Catalytic activity/Vol] 168 U/L High <38 [facility] MCV (mean corpuscular volume ) determinationOrdered By: Xochilt De Jesus on 02-14-2025 MCV (RBC) [Entitic vol] 85.7 fL 80-94 [facility] Mean corpuscular hemoglobin (MCH) determinationOrdered By: Xochilt De Jesus on 02-14-2025 MCH (RBC) [Entitic mass] 29.0 pg 27.0-32.0 [facility] Mean corpuscular hemoglobin concentration (MCHC) determinationOrdered By: Xochilt De Jesus on 02-14-2025 MCHC (RBC) [Mass/Vol] 33.9 g/dL 32-36 [facility] Mean platelet volume determi nationOrdered By: Xochilt De Jesus on 02-14-2025 Platelet mean volume (Bld) [Entitic vol] 10.8 fL 6.2-12.0 [facility] Monocyte percentageOrdered B y: Xochilt De Jesus on 02-14-2025 Monocytes/100 WBC (Bld) 9.2 % 0-10 [facility] Neutrophil percentageOrdered By: Xochilt De Jesus on 02-14-2025 Neutrophils/100 WBC (Bld) 65.2 % 47-70 [facility] Nucleated red blood cell per centageOrdered By: Xochilt De Jesus on 02-14-2025 Nucleated RBC/100 WBC (Bld) [Ratio] 0 % 0-5 [facility] Platelet countOrdered By: Darlene De Jesus on 02-14-2025 Platelets (Bld) [#/Vol] 309 10*3/uL 150-450 [facility] Potassium measurement (mass/ volume)Ordered By: Xochilt De Jesus on 02-14-2025 Potassium (Unsp spec) [Mass/Vol] 3.6 mmol/L 3.3-5.1 [facility] RBC Auto (Bld) [#/Vol]Ordere d By: Xochlit De Jesus on 02-14-2025 RBC (Bld) [#/Vol] 5.10 10*6/uL 4.6-6.[address] [facility] Serum creatinine measurement (mass/volume)Ordered By: Xochilt De Jesus on 02-14-2025 Creatinine [Mass/Vol] 0.91 mg/dL 0.70-1.20 [facility] Serum globulin measurementOr dered By: Xochilt De Jesus on 02-14-2025 Globulin (S) [Mass/Vol] 2.7 g/dL 2.2-4.2 [facility] Serum glucose measurement (m ass/volume)Ordered By: Xochilt De Jesus on 02-14-2025 Glucose [Mass/Vol] 80 mg/dL 70-99 [facility] Serum or plasma alanine murillo otransferase (ALT) measurementOrdered By: Xochilt De Jesus on 02-14-2025 ALT [Catalytic activity/Vol] 145 U/L High <47 [facility] Serum or plasma albumin long urement (mass/volume)Ordered By: Xochilt De Jesus on 02-14-2025 Albumin [Mass/Vol] 3.8 g/dL 3.5-5.0 [facility] Serum or plasma albumin/glob ulin mass ratioOrdered By: Xochilt De Jesus on 02-14-2025 Albumin/Globulin [Mass ratio] 1.4 {ratio} 0.9-2.4 [facility] Serum or plasma alkaline gunnar sphatase measurementOrdered By: Xochilt De Jesus on 02-14-2025 ALP [Catalytic activity/Vol] 70 U/L 40-129 [facility] Serum or plasma calcium long urement (mass/volume)Ordered By: Xochilt De Jesus on 02-14-2025 Calcium [Mass/Vol] 8.3 mg/dL 7.6-11.0 [facility] Serum or plasma urea nitroge n measurement (mass/volume)Ordered By: Xochilt De Jesus on 02-14-2025 Urea nitrogen [Mass/Vol] 9 mg/dL 4-19 [facility] Sodium levelOrdered By: Harman De Jesus on 02-14-2025 Sodium [Moles/Vol] 139 mmol/L 133-145 [facility] TSH DL <= 0.005 mIU/L QnOrde red By: Angela Chau on 02-14-2025 TSH Qn 3.370 uIU/mL 0.300-4.200 [facility] Thyroid Stim Hormone (TSH)on 02-14-2025 TSH 3.370 uIU/mL Normal 0.300-4.200 [facility] Comment on above: Performed By: #### L 300.8000, L501.9520 ####[facility] [id number] [place], [place], [id number] Total proteinOrdered By: Nesha De Jesus on 02-14-2025 Protein [Mass/Vol] 6.5 g/dL 5.9-8.4 [facility] White blood cell (WBC) count Ordered By: Xochilt De Jesus on 02-14-2025 WBC (Bld) [#/Vol] 12.9 10*3/uL High 4.4-11.[address] [facility] Absolute lymphocyte countOrd ered By: Deep Holman on 02-13-2025 Lymphocytes Auto (Unsp spec) [#/Vol] 2.77 10*3/uL 0.83-4.51 [facility] Absolute neutrophil countOrd ered By: Deep Holman on 02-13-2025 Neutrophils (Bld) [#/Vol] 8.4 10*3/uL High 2.0-7.7 [facility] Alcohol, Blood (Medical)-Ser umon 02-13-2025 SERUM ETOH 321.0 mg/dL Invalid Interpretation Code <=10.0 [facility] Comment on above: Result Comment: Crit ical Result(s) Called [facility] at: 1626 by: DALY??Results read back by same. This test is for medical purposes only. The legal definition of intoxication varies according to local law. Performed By: #### L 100.0100, L501.9100, L505.5000 #### [facility] [address] [place], [place], [id number] Amphetamine detection with 1 000 ng/mL as cutoffOrdered By: Deep Holman on 02-13-2025 Amphetamines Screen method >1000 ng/mL Ql (U) Negative < 200 ng/mL [facility] Anion gap in Serum or Plasma Ordered By: Deep Holman on 02-13-2025 Anion gap [Moles/Vol] 24 mmol/L High 5-15 [facility] Automated lymphocyte count a s percentage of total leukocytesOrdered By: Deep Holman on 02-13-2025 Lymphocytes/100 WBC Auto (Unsp spec) 22.1 % 19-41 [facility] BUN/creatinine ratioOrdered By: Deep Holman on 02-13-2025 Urea nitrogen/Creatinine [Mass ratio] 12.4 mg/mg 10-20 [facility] Basophil percentageOrdered B y: Deep Holman on 02-13-2025 Basophils/100 WBC (Bld) 1.2 % High 0-1 [facility] Bilirubin, totalOrdered By: Deep Holman on 02-13-2025 Bilirubin [Mass/Vol] 0.61 mg/dL 0.00-1.30 [facility] CBC W/Diff, Automatedon 01-28 Absolute Lymph 2.77 X10 3/uL Normal 0.83-4.51 [facility] Comment on above: Performed By: #### L 100.0100, L501.9100, L505.5000 #### [facility] [address] [place], [address] Absolute Neut 8.4 X10 3/uL High 2.0-7.7 [facility] Comment on above: Performed By: #### L 100.0100, L501.9100, L505.5000 #### [facility] [address] [place], [address] Basophils/100 WBC (Bld) 1.2 % High 0-1 [facility] Comment on above: Performed By: #### L 100.0100, L501.9100, L505.5000 #### [facility] [address] [place], [address] Eosinophils/100 WBC (Bld) 0.1 % Normal 0-5 [facility] Comment on above: Performed By: #### L 100.0100, L501.9100, L505.5000 #### [facility] [address] [place], [address] Erythrocyte distribution width (RBC) [Ratio] 15.1 % High 11.6-14.6 [facility] Comment on above: Performed By: #### L 100.0100, L501.9100, L505.5000 #### [facility] [address] [place], [address] Hematocrit (Bld) [Volume fraction] 46.6 % Normal 40-54 [facility] Comment on above: Performed By: #### L 100.0100, L501.9100, L505.5000 #### [facility] [address] [place], [address] Hemoglobin (Bld) [Mass/Vol] 16.2 g/dL Normal 13.0-16.5 [facility] Comment on above: Performed By: #### L 100.0100, L501.9100, L505.5000 #### [facility] [address] [place], [address] IG% 0.400 Normal 0.0-0.9 [facility] Comment on above: Result Comment: IG% - Immature Granulocytes (promyelocytes, myelocytes and metamyelocytes) > 1% indicates that a LEFT SHIFT is Present. Performed By: #### L 100.0100, L501.9100, L505.5000 #### [facility] [address] [place], [address] Lymphocytes/100 WBC (Bld) 22.1 % Normal 19-41 [facility] Comment on above: Performed By: #### L 100.0100, L501.9100, L505.5000 #### [facility] [address] [place], [address] MCH (RBC) [Entitic mass] 29.3 pg Normal 27.0-32.0 [facility] Comment on above: Performed By: #### L 100.0100, L501.9100, L505.5000 #### [facility] [address] [place], [address] MCHC (RBC) [Mass/Vol] 34.8 g/dL Normal 32-36 [facility] Comment on above: Performed By: #### L 100.0100, L501.9100, L505.5000 #### [facility] [address] [place], [address] MCV (RBC) [Entitic vol] 84.3 fL Normal 80-94 [facility] Comment on above: Performed By: #### L 100.0100, L501.9100, L505.5000 #### [facility] [address] [place], [address] Monocytes/100 WBC (Bld) 9.5 % Normal 0-10 [facility] Comment on above: Performed By: #### L 100.0100, L501.9100, L505.5000 #### [facility] [address] [place], [address] Neutrophils/100 WBC (Bld) 66.7 % Normal 47-70 [facility] Comment on above: Performed By: #### L 100.0100, L501.9100, L505.5000 #### [facility] [address] [place], [address] Nucleated RBC (Bld) [#/Vol] 0 10*3/uL Normal 0-5 [facility] Comment on above: Performed By: #### L 100.0100, L501.9100, L505.5000 #### [facility] [address] [place], [address] Platelet mean volume (Bld) [Entitic vol] 10.1 fL Normal 6.2-12.0 [facility] Comment on above: Performed By: #### L 100.0100, L501.9100, L505.5000 #### [facility] [address] [place], [address] Platelets (Bld) [#/Vol] 354 10*3/uL Normal 150-450 [facility] Comment on above: Performed By: #### L 100.0100, L501.9100, L505.5000 #### [facility] [address] [place], [address] RBC (Bld) [#/Vol] 5.53 10*6/uL Normal 4.6-6.[address] [facility] Comment on above: Performed By: #### L 100.0100, L501.9100, L505.5000 #### [facility] [address] [place], [address] RDW SD 46.5 fl High 35.1-43.9 [facility] Comment on above: Performed By: #### L 100.0100, L501.9100, L505.5000 #### [facility] [address] [place], [address] WBC (Bld) [#/Vol] 12.5 10*3/uL High 4.4-11.[address] [facility] Comment on above: Performed By: #### L 100.0100, L501.9100, L505.5000 #### [facility] [address] [place], [address] Carbon dioxide, total [Moles /volume] in Central venous bloodOrdered By: Deep Holman on 02-13-2025 CO2 [Moles/Vol] 21.8 mmol/L 21.0-32.0 [facility] Chloride assayOrdered By: Michael Holman on 02-13-2025 Chloride [Moles/Vol] 92 mmol/L Low 98-108 [facility] Comprehensive Metabolic Prof ilon 02-13-2025 Albumin [Mass/Vol] 4.4 g/dL Normal 3.5-5.0 [facility] Comment on above: Performed By: #### L 500.4050 #### [facility] [address] [place], [address] Albumin/Globulin [Mass ratio] 1.3 {ratio} Normal 0.9-2.4 [facility] Comment on above: Performed By: #### L 500.4050 #### [facility] [address] [place], [address] ALK PHOS 91 U/L Normal 40-129 [facility] Comment on above: Performed By: #### L 500.4050 #### [facility] [address] [place], [address] ALT [Catalytic activity/Vol] 188 U/L High <=46 [facility] Comment on above: Performed By: #### L 500.4050 #### [facility] [address] [place], [address] AST [Catalytic activity/Vol] 227 U/L High <=37 [facility] Comment on above: Performed By: #### L 500.4050 #### [facility] [address] [place], [address] Bilirubin [Mass/Vol] 0.61 mg/dL Normal 0.00-1.30 [facility] Comment on above: Performed By: #### L 500.4050 #### [facility] [address] [place], [address] BUN/CRE 12.4 RATIO Normal 10-20 [facility] Comment on above: Performed By: #### L 500.4050 #### [facility] [address] [place], [address] Calcium [Mass/Vol] 8.8 mg/dL Normal 7.6-11.0 [facility] Comment on above: Performed By: #### L 500.4050 #### [facility] [address] [place], [address] Chloride [Moles/Vol] 92 mmol/L Low 98-108 [facility] Comment on above: Performed By: #### L 500.4050 #### [facility] [address] [place], [address] CO2 [Moles/Vol] 21.8 mmol/L Normal 21.0-32.0 [facility] Comment on above: Performed By: #### L 500.4050 #### [facility] [address] [place], [address] Creatinine [Mass/Vol] 0.98 mg/dL Normal 0.70-1.20 [facility] Comment on above: Performed By: #### L 500.4050 #### [facility] [address] [place], [address] ECRCL 115.98 ml/min Normal 50-250 [facility] Comment on above: Performed By: #### L 500.4050 #### [facility] [address] [place], [address] GAP 24 High 5-15 [facility] Comment on above: Performed By: #### L 500.4050 #### [facility] [address] [place], [address] GFR/1.73 sq M.predicted among non-blacks MDRD (S/P/Bld) [Vol rate/Area] 103 mL/min/{1.73_m2} Normal >60 [facility] Comment on above: Result Comment: mL/m in/1.73m2 CKD-EPI Creatinine Equation (2020) Performed By: #### L 500.4050 #### [facility] [address] [place], [address] Globulin (S) [Mass/Vol] 3.5 g/dL Normal 2.2-4.2 [facility] Comment on above: Performed By: #### L 500.4050 #### [facility] [address] [place], [address] Glucose [Mass/Vol] 92 mg/dL Normal 70-99 [facility] Comment on above: Performed By: #### L 500.4050 #### [facility] [address] [place], [address] Potassium [Moles/Vol] 3.7 mmol/L Normal 3.3-5.1 [facility] Comment on above: Performed By: #### L 500.4050 #### [facility] [address] [place], [address] Sodium [Moles/Vol] 137 mmol/L Normal 133-145 [facility] Comment on above: Performed By: #### L 500.4050 #### [facility] [address] [place], [address] T PROT 7.9 g/dL Normal 5.9-8.4 [facility] Comment on above: Performed By: #### L 500.4050 #### [facility] [address] [place], [address] Urea nitrogen [Mass/Vol] 12 mg/dL Normal 4-19 [facility] Comment on above: Performed By: #### L 500.4050 #### [facility] [address] [place], [address] Emergency Department Summary on 02-13-2025 Emergency Department Summary [facility] Medical Records Department [address] [place] [address] Emergency Department Summary 02/13/25 MR#: [id number] Acct: [id number] Name: ANNAMARIE LARIOS Rep #: [id number] : 1990 34 From: Deep Holman DO PCP: Dr. Nikita Sorensen MD Status:ADM IN Location: MS3 [id number] HPI History of Present Illness Chief Complaint: [...] worse. Patient does not take any anticoagulants. [facility] Medical History (Updated 02/13/25 @ 18:21 by [...] level will (more content not included)... Normal [facility] Eosinophil percentageOrdered By: Deep Holman on 02-13-2025 Eosinophils/100 WBC (Bld) 0.1 % 0-5 [facility] Erythrocyte distribution wid th ratioOrdered By: Deep Holman on 02-13-2025 Erythrocyte distribution width (RBC) [Ratio] 15.1 % High 11.6-14.6 [facility] Erythrocyte distribution wid th standard deviationOrdered By: Deep Holman on 02-13-2025 Erythrocyte distribution width (RBC) [Ratio] 46.5 fl High 35.1-43.9 [facility] Glomerular filtration rate ( GFR) estimation/1.73 sq m using serum, plasma, or whole bOrdered By: Deep Holman on 02-13-2025 GFR/1.73 sq M.predicted among non-blacks MDRD (S/P/Bld) [Vol rate/Area] 103 mL/min/{1.73_m2} >60 [facility] Comment on above: mL/min/1.73m2 CKD-EP I Creatinine Equation (2020) H AND P Exam - [facility] 02-13-2025 H&P Exam - Hospitalist [facility] Medical Records Department [address] [place] [address] H P Exam - Hospitalist 02/13/25 1848 MR#: [id number] Acct: [id number] Name: ANNAMARIE LARIOS Rep #: [id number] : 1990 34 From: Xochilt De Jesus MD PCP: Dr. Nikita Sorensen MD Status:ADM IN Location: [facility] [id number] HPI - General General Date of Admission: 02/13/25 Date of Service: 02/13/25 Chief Complaint: Right eye redness and alcohol use HPI Narrative ANNAMARIE LARIOS, is a 34 M with a history of depression, chewing tobacco use, remote history of alcohol use presented [facility] ED 02/13/2025 initially reporting some redness on [...] he just does not take them out. [facility] Medical History (Updated 02/13/25 @ 18:21 [...] neurological deficits (more content not included)... Normal [facility] Hematocrit Auto (Bld) [Volum e fraction]Ordered By: Deep Holman on 02-13-2025 Hematocrit (Bld) [Volume fraction] 46.6 % 40-54 [facility] Hemoglobin measurementOrdere d By: Deep Holman on 02-13-2025 Hemoglobin (Bld) [Mass/Vol] 16.2 g/dL 13.0-16.5 [facility] Immature granulocytes/100 WB C Auto (Bld)Ordered By: Deep Holman on 02-13-2025 Immature granulocytes/100 WBC (Bld) 0.400 % 0.0-0.9 [facility] Comment on above: IG% - Immature Granu locytes (promyelocytes, myelocytes and metamyelocytes) > 1% indicates that a LEFT SHIFT is Present. Laboratory - Chemistry and C hemistry - challengeOrdered By: Deep Holman on 02-13-2025 AST [Catalytic activity/Vol] 227 U/L High <38 [facility] MCV (mean corpuscular volume ) determinationOrdered By: Deep Holman on 02-13-2025 MCV (RBC) [Entitic vol] 84.3 fL 80-94 [facility] Mean corpuscular hemoglobin (MCH) determinationOrdered By: Deep Holman on 02-13-2025 MCH (RBC) [Entitic mass] 29.3 pg 27.0-32.0 [facility] Mean corpuscular hemoglobin concentration (MCHC) determinationOrdered By: Deep Holman on 02-13-2025 MCHC (RBC) [Mass/Vol] 34.8 g/dL 32-36 [facility] Mean platelet volume determi nationOrdered By: Deep Holman on 02-13-2025 Platelet mean volume (Bld) [Entitic vol] 10.1 fL 6.2-12.0 [facility] Monocyte percentageOrdered B y: Deep Holman on 02-13-2025 Monocytes/100 WBC (Bld) 9.5 % 0-10 [facility] Neutrophil percentageOrdered By: Deep Holman on 02-13-2025 Neutrophils/100 WBC (Bld) 66.7 % 47-70 [facility] No Panel InformationOrdered By: Deep Holman on 02-13-2025 Urine Buprenorphine Qualitative Negative < 200 ng/mL [facility] Urine Oxycodone Screen Negative < 100 ng/mL [facility] Nucleated red blood cell per centageOrdered By: Deep Holman on 02-13-2025 Nucleated RBC/100 WBC (Bld) [Ratio] 0 % 0-5 [facility] Platelet countOrdered By: Michael Holman on 02-13-2025 Platelets (Bld) [#/Vol] 354 10*3/uL 150-450 [facility] Potassium measurement (mass/ volume)Ordered By: Deep Holman on 02-13-2025 Potassium (Unsp spec) [Mass/Vol] 3.7 mmol/L 3.3-5.1 [facility] Quantitative urine opiates m easurementOrdered By: Deep Holman on 02-13-2025 Opiates Ql (U) Negative < 300 ng/mL [facility] RBC Auto (Bld) [#/Vol]Ordere d By: Deep Holman on 02-13-2025 RBC (Bld) [#/Vol] 5.53 10*6/uL 4.6-6.[address] [facility] Screening urine fentanyl warren surementOrdered By: Deep Holman on 02-13-2025 fentaNYL Screen Ql (U) Negative [facility] Serum creatinine measurement (mass/volume)Ordered By: Deep Holman on 02-13-2025 Creatinine [Mass/Vol] 0.98 mg/dL 0.70-1.20 [facility] Serum globulin measurementOr dered By: Deep Holman on 02-13-2025 Globulin (S) [Mass/Vol] 3.5 g/dL 2.2-4.2 [facility] Serum glucose measurement (m ass/volume)Ordered By: Deep Holman on 02-13-2025 Glucose [Mass/Vol] 92 mg/dL 70-99 [facility] Serum or plasma alanine murillo otransferase (ALT) measurementOrdered By: Deep Holman on 02-13-2025 ALT [Catalytic activity/Vol] 188 U/L High <47 [facility] Serum or plasma albumin long urement (mass/volume)Ordered By: Deep Holman on 02-13-2025 Albumin [Mass/Vol] 4.4 g/dL 3.5-5.0 [facility] Serum or plasma albumin/glob ulin mass ratioOrdered By: Deep Holman on 02-13-2025 Albumin/Globulin [Mass ratio] 1.3 {ratio} 0.9-2.4 [facility] Serum or plasma alkaline gunnar sphatase measurementOrdered By: Deep Holman on 02-13-2025 ALP [Catalytic activity/Vol] 91 U/L 40-129 [facility] Serum or plasma calcium long urement (mass/volume)Ordered By: Deep Holman on 02-13-2025 Calcium [Mass/Vol] 8.8 mg/dL 7.6-11.0 [facility] Serum or plasma ethanol long urement (mass/volume)Ordered By: Deep Holman on 02-13-2025 Ethanol [Mass/Vol] 321.0 mg/dL High <10.[address] [facility] Comment on above: Critical Result(s) Heraclio GRADY at: 1626 by: DALY Results read back by same.This test is for medical purposes only. The legal definition of intoxication varies according to local law. Serum or plasma urea nitroge n measurement (mass/volume)Ordered By: Deep Holman on 02-13-2025 Urea nitrogen [Mass/Vol] 12 mg/dL 4-19 [facility] Sodium levelOrdered By: Deep Holman on 02-13-2025 Sodium [Moles/Vol] 137 mmol/L 133-145 [facility] Total proteinOrdered By: Rakel Holman on 02-13-2025 Protein [Mass/Vol] 7.9 g/dL 5.9-8.4 [facility] Urine Drug Screen (VISTA)on 02-13-2025 AMPHETAMINES Negative Normal <1000 ng/mL [facility] Comment on above: Performed By: #### L 100.0100, L501.9100, L505.5000 #### [facility] [address] [place] [address] BARBITIURATES Negative Normal < 200 ng/mL [facility] Comment on above: Performed By: #### L 100.0100, L501.9100, L505.5000 #### [facility] [address] [place] [address] BENZODIAZIPINE Negative Normal < 200 ng/mL [facility] Comment on above: Performed By: #### L 100.0100, L501.9100, L505.5000 #### [facility] [address] [place] [address] BUP Ur Drug Scr Negative Normal < 200 ng/mL [facility] Comment on above: Performed By: #### L 100.0100, L501.9100, L505.5000 #### [facility] [address] [place], [address] COCAINE Negative Normal < 300 ng/mL [facility] Comment on above: Performed By: #### L 100.0100, L501.9100, L505.5000 #### [facility] [address] [place], [address] Fentanyl Negative Normal [facility] Comment on above: Performed By: #### L 100.0100, L501.9100, L505.5000 #### [facility] [address] [place], [address] METHADONE Negative Normal < 300 ng/mL [facility] Comment on above: Performed By: #### L 100.0100, L501.9100, L505.5000 #### [facility] [address] [place], [address] OPIATES Negative Normal < 300 ng/mL [facility] Comment on above: Performed By: #### L 100.0100, L501.9100, L505.5000 #### [facility] [address] [place], [address] OXYCODONE Negative Normal < 100 ng/mL [facility] Comment on above: Performed By: #### L 100.0100, L501.9100, L505.5000 #### [facility] [address] [place], [address] PCP Negative Normal < 25 ng/mL [facility] Comment on above: Performed By: #### L 100.0100, L501.9100, L505.5000 #### [facility] [address] [place], [address] THC Positive Normal < 50 ng/mL [facility] Comment on above: Result Comment: If c onfirmation testing is needed, a separate order will be required to send out testing to the reference laboratory. Performed By: #### L 100.0100, L501.9100, L505.5000 #### [facility] [place], [address] Urine benzodiazepine levelOr dered By: Deep Holman on 02-13-2025 Benzodiazepines Ql (U) Negative < 200 ng/mL [facility] Urine cocaine levelOrdered B y: Deep Holman on 02-13-2025 Cocaine Ql (U) Negative < 300 ng/mL [facility] Urine mmaki-6-rlnydqzjgglxwi abinol (THC) measurementOrdered By: Deep Holman on 02-13-2025 Cannabinoids Screen Ql (U) Positive < 50 ng/mL [facility] Comment on above: If confirmation test ing is needed, a separate order will be required to send out testing to the reference laboratory. Urine phencyclidine (PCP) de tectionOrdered By: Deep Holman on 02-13-2025 Phencyclidine Ql (U) Negative < 25 ng/mL [facility] White blood cell (WBC) count Ordered By: Deep Holman on 02-13-2025 WBC (Bld) [#/Vol] 12.5 10*3/uL High 4.4-11.[address] [facility] CBC W Auto Differential pane l (Bld)on 08-04-2024 Basophils (Bld) [#/Vol] 0.2 10*3/uL 0.0 - 0.2 10*3/uL [facility] Basophils/100 WBC (Bld) 2.2 % High 0.0 - 2.0 % [facility] Eosinophils (Bld) [#/Vol] 0 10*3/uL 0.0 - 0.5 10*3/uL [facility] Eosinophils/100 WBC (Bld) 0.4 % 0.0 - 6.0 % [facility] Erythrocyte distribution width (RBC) [Ratio] 14.6 % 11.5 - 15.0 % [facility] Hematocrit (Bld) [Volume fraction] 51 % 40.0 - 52.0 % [facility] Hemoglobin (Bld) [Mass/Vol] 17.1 g/dL 13.0 - 18.0 g/dL [facility] Immature granulocytes (Bld) [#/Vol] 0 10*3/uL NINF - 0.1 10*3/uL [facility] Immature granulocytes/100 WBC (Bld) 0.2 % 0.0 - 2.0 % [facility] Interpretation and review of laboratory results Abnormal [facility] Lymphocytes (Bld) [#/Vol] 3 10*3/uL 1.0 - 4.3 10*3/uL [facility] Lymphocytes/100 WBC (Bld) 37.5 % 15.0 - 45.0 % [facility] MCH (RBC) [Entitic mass] 28.3 pg 26. 0 - 34.0 pg [facility] MCHC (RBC) [Mass/Vol] 33.5 % 30.5 - 36.0 % [facility] MCV (RBC) [Entitic vol] 84.4 fL 77.0 - 99.0 fL [facility] Monocytes (Bld) [#/Vol] 0.8 10*3/uL 0.0 - 0.9 10*3/uL [facility] Monocytes/100 WBC (Bld) 10.2 % 5.0 - 13.0 % [facility] Neutrophils (Bld) [#/Vol] 4 10*3/uL 1.8 - 7.5 10*3/uL [facility] Neutrophils/100 WBC (Bld) 49.5 % 38.0 - 82.0 % [facility] Nucleated RBC/100 WBC (Bld) [Ratio] 0 % [facility] Platelet mean volume (Bld) [Entitic vol] 10.3 fL 9.0 - 12.7 fL [facility] Platelets (Bld) [#/Vol] 399 10*3/uL 140 - 440 10*3/uL [facility] RBC (Bld) [#/Vol] 6.04 10*6/uL High 4.40 - 5.9 0 10*6/uL [facility] WBC (Bld) [#/Vol] 8.1 10*3/uL 3.6 - 10.7 10*3/uL [facility] CBC WITH AUTO DIFFERENTIALon 08-04-2024 Basophils (Bld) [#/Vol] 0.2 10*3/uL Normal 0.0-0.2 [facility] Comment on above: Performed By: #### L [id number] ####Engraving Operator: YOHANA JARQUIN ([phone])[facility] ([address] Basophils/100 WBC (Bld) 2.2 % High 0.0-2.0 [facility] Comment on above: Performed By: #### L [id number] ####Engraving Operator: YOHANA JARQUIN ([phone])[facility])[address] [place] [address] Eosinophils (Bld) [#/Vol] 0.0 10*3/uL Normal 0.0-0.5 [facility] Comment on above: Performed By: #### L [id number] ####Engraving Operator: YOHANA JARQUIN ([id number])[facility])[address] [place] [address] Eosinophils/100 WBC (Bld) 0.4 % Normal 0.0-6.0 [facility] Comment on above: Performed By: #### L [id number] ####Engraving Operator: YOHANA JARQUIN ([phone])[facility])[address] [place] [address] Erythrocyte distribution width (RBC) [Ratio] 14.6 % Normal 11.5-15.0 [facility] Comment on above: Performed By: #### L [id number] ####Engraving Operator: YOAHNA JARQUIN ([id number])[address] Hematocrit (Bld) [Volume fraction] 51.0 % Normal 40.0-52.0 [facility] Comment on above: Performed By: #### L [id number] ####Engraving Operator: YOHANA JARQUIN ([id number])[facility])[address] [place] [address] Hemoglobin (Bld) [Mass/Vol] 17.1 g/dL Normal 13.0-18.0 [facility] Comment on above: Performed By: #### L [id number] ####Engraving Operator: YOHANA JARQUIN ([id number])[facility])[address] [place] [address] IMMATURE GRANS % 0.2 % Normal 0.0-2.0 [facility] Comment on above: Performed By: #### L [id number] ####Engraving Operator: YOHANA JARQUIN ([phone])[address] IMMATURE GRANS ABSOLUTE 0.0 10*3/uL Normal <0.1 [facility] Comment on above: Performed By: #### L [id number] ####Engraving Operator: YOHANA JARQUIN ([phone])[facility])[address] [place] [address] Lymphocytes (Bld) [#/Vol] 3.0 10*3/uL Normal 1.0-4.3 [facility] Comment on above: Performed By: #### L [id number] ####Engraving Operator: YOHANA JARQUIN ([id number])[address] Lymphocytes/100 WBC (Bld) 37.5 % Normal 15.0-45.0 [facility] Comment on above: Performed By: #### L [id number] ####Engraving Operator: YOHANA JARQUIN ([phone])[address] MCH (RBC) [Entitic mass] 28.3 pg Normal 26.0-34.0 [facility] Comment on above: Performed By: #### L [id number] ####Engraving Operator: YOHANA JARQUIN ([id number])[address] MCHC 33.5 % Normal 30.5-36.0 [facility] Comment on above: Performed By: #### L [id number] ####Engraving Operator: YOHANA JARQUIN ([id number])[address] MCV (RBC) [Entitic vol] 84.4 fL Normal 77.0-99.0 [facility] Comment on above: Performed By: #### L [id number] ####Engraving Operator: YOHANA JARQUIN ([id number])[facility] ([facility])[address] [place] [address] Monocytes (Bld) [#/Vol] 0.8 10*3/uL Normal 0.0-0.9 [facility] Comment on above: Performed By: #### L [id number] ####Engraving Operator: YOHANA JARQUIN ([id number])[facility] ([facility])[address] [place] [address] Monocytes/100 WBC (Bld) 10.2 % Normal 5.0-13.0 [facility] Comment on above: Performed By: #### L [id number] ####Engraving Operator: YOHANA JARQUIN ([phone])[facility])[address] [place] [address] NEUTROPHILS ABSOLUTE 4.0 10*3/uL Normal 1.8-7.5 [facility] Comment on above: Performed By: #### L [id number] ####Engraving Operator: YOHANA JARQUIN ([phone])[facility] ([facility])[address] [place] [address] Neutrophils/100 WBC (Bld) 49.5 % Normal 38.0-82.0 [facility] Comment on above: Performed By: #### L [id number] ####Engraving Operator: YOHANA JARQUIN ([phone])[facility])[address] [place] [address] NRBC 0.0 /100 WBCs Normal 0.0-2.0 [facility] Comment on above: Performed By: #### L [id number] ####Engraving Operator: YOHANA JARQUIN ([id number])[facility] ([facility])[address] [place] [address] Platelet mean volume (Bld) [Entitic vol] 10.3 fL Normal 9.0-12.7 [facility] Comment on above: Performed By: #### L [id number] ####Engraving Operator: YOHANA JARQUIN ([phone])[facility])[address] Platelets (Bld) [#/Vol] 399 10*3/uL Normal 140-440 [facility] Comment on above: Performed By: #### L [id number] ####Engraving Operator: YOHANA JARQUIN ([id number])[facility] ([facility])[address] [place] [address] RBC (Bld) [#/Vol] 6.04 10*6/uL High 4.40-5.90 [facility] Comment on above: Performed By: #### L [id number] ####Engraving Operator: YOHANA JARQIUN ([id number])[facility])[address] [place] [address] WBC (Bld) [#/Vol] 8.1 10*3/uL Normal 3.6-10.7 [facility] Comment on above: Performed By: #### L [id number] ####Engraving Operator: YOHANA JARQUIN ([id number])[facility])[address] [place] [address] CKon 08-04-2024 CK [Catalytic activity/Vol] 355 U/L High 30-185 [facility] Comment on above: Performed By: #### L AB46, LAB62, LAB17 ####Engraving Operator: YOHANA JARQUIN ([phone])[facility])[address] [place] [address] COMPLETE URINALYSISon 2024 BACTERIA (#/HPF) IN URINE Negative Normal Negative [facility] Comment on above: Performed By: #### L [id number] ####Engraving Operator: YOHANA JARQUIN ([id number])[facility])[address] [place] [address] BILIRUBIN, TOTAL PRESENCE IN URINE Negative Normal Negative [facility] Comment on above: Performed By: #### L [id number] ####Engraving Operator: YOHANA JARQUIN ([phone])[facility])[address] [place] [address] Clarity (U) Clear Normal Clear [facility] Comment on above: Performed By: #### L [id number] ####Engraving Operator: YOHANA JARQUIN ([phone])[facility] [place] [address] Color (U) Yellow Normal Lt. Yellow [facility] Comment on above: Performed By: #### L [id number] ####Engraving Operator: YOHANA JARQUIN ([phone])[facility] ([facility])[address] [place] [address] GLUCOSE (MG/DL) IN URINE Normal Normal Nor mal (<70) [facility] Comment on above: Performed By: #### L [id number] ####Engraving Operator: YOHANA JARQUIN ([id number])[facility] ([facility])[address] [place] [address] HEMOGLOBIN PRESENCE IN URINE 0.1 mg/dL Abnormal Negative [facility] Comment on above: Performed By: #### L [id number] ####Engraving Operator: YOHANA JARQUIN ([phone])[facility] ([facility])[address] [place] [address] [place] HYALINE CASTS (#/LPF) IN URINE SEDIMENT BY MICROSCOPY Negative Normal Negative [facility] Comment on above: Performed By: #### L [id number] ####Engraving Operator: YOHANA JARQUIN ([phone])[facility] ([facility])[address] [place] [address] Ketones Ql (U) Negative Normal Negative [facility] Comment on above: Performed By: #### L [id number] ####Engraving Operator: YOHANA JARQUIN ([phone])[facility] ([facility])[address] [place] [address] LEUKOCYTE ESTERASE PRESENCE IN URINE BY TEST STRIP Negative Normal Negative [facility] Comment on above: Performed By: #### L [id number] ####Engraving Operator: YOHANA JARQUIN ([phone])[facility])[address] [place] [address] [place] MUCUS (#/LPF) IN URINE SEDIMENT Few Normal Negative [facility] Comment on above: Performed By: #### L [id number] ####Engraving Operator: YOHANA JARQUIN ([phone])[facility] ([facility])[address] [place] [address] NITRITE PRESENCE IN URINE Negative Normal Negative [facility] Comment on above: Performed By: #### L [id number] ####Engraving Operator: YOHANA JARQUIN ([id number])[facility] ([facility])[address] [place] [address] pH (U) 7.0 [pH] Normal 5.0-8.0 [facility] Comment on above: Performed By: #### L [id number] ####Engraving Operator: YOHANA JARQUIN ([phone])[facility] ([facility])[address] [place] [address] Protein (U) [Mass/Vol] 600 mg/dL Abnormal Negative [facility] Comment on above: Performed By: #### L [id number] ####Engraving Operator: YOHANA JARQUIN ([id number])[facility] ([facility])[address] [place] [address] RBC (#/HPF) IN URINE SEDIMENT 0-2 Normal 0-2 [facility] Comment on above: Performed By: #### L [id number] ####Engraving Operator: YOHANA JARQUIN ([id number])[facility] ([facility])[address] [place] [address] Specific gravity (U) [Rel density] 1.025 Normal 1.005-1.030 [facility] Comment on above: Performed By: #### L [id number] ####Engraving Operator: YOHANA JARQUIN ([id number])[facility] ([facility])[address] [place] [address] SQUAMOUS EPITHELIAL CELLS (#/HPF) IN URINE SEDIMENT 0-2 Normal 3-5 [facility] Comment on above: Performed By: #### L [id number] ####Engraving Operator: YOHANA JARQUIN ([id number])[facility] ([facility])[address] [place] [address] UROBILINOGEN (MG/DL) IN URINE Normal Normal Normal (0-1) [facility] Comment on above: Performed By: #### L [id number] ####Engraving Operator: YOHANA JARQUIN ([phone])[facility])[address] [place] [address] WBC (LEUKOCYTE) (#/HPF) IN URINE SEDIMENT 0-2 Normal 0-5 [facility] Comment on above: Performed By: #### L [id number] ####Engraving Operator: YOHANA JARQUIN ([id number])[facility])[address] [place] [address] COMPREHENSIVE METABOLIC PANE Akhil 08-04-2024 Albumin [Mass/Vol] 4.2 g/dL Normal 3.5-5.0 [facility] Comment on above: Performed By: #### L AB46, LAB62, LAB17 ####Engraving Operator: YOHANA JARQUIN ([id number])[facility])[address] [place] [address] ALP [Catalytic activity/Vol] 79 U/L Normal 40-150 [facility] Comment on above: Performed By: #### L AB46, LAB62, LAB17 ####Engraving Operator: YOHANA JARQUIN ([id number])[facility])[address] [place] [address] ALT [Catalytic activity/Vol] 284 U/L High <40 [facility] Comment on above: Performed By: #### L AB46, LAB62, LAB17 ####Engraving Operator: YOHANA JARQUIN ([id number])[facility])[address] [place] [address] Anion gap [Moles/Vol] 14 mmol/L High 3-13 [facility] Comment on above: Performed By: #### L AB46, LAB62, LAB17 ####Engraving Operator: YOHANA JARQUIN ([phone])[facility])[address] [place] [address] AST [Catalytic activity/Vol] 237 U/L High <34 [facility] Comment on above: Performed By: #### L AB46, LAB62, LAB17 ####Engraving Operator: YOHANA JARQUIN ([phone])[facility])[address] [place] [address] Bilirubin [Mass/Vol] 0.4 mg/dL Normal <1.2 [facility] Comment on above: Performed By: #### L AB46, LAB62, LAB17 ####Engraving Operator: YOHANA JARQUIN ([id number])[facility])[address] [place] [address] Calcium [Mass/Vol] 8.6 mg/dL Normal 8.4-10.2 [facility] Comment on above: Performed By: #### Jaspreet AB46, LAB62, LAB17 ####Engraving Operator: YOHANA JARQUIN ([id number])[facility])[address] [place] [address] Chloride [Moles/Vol] 100 mmol/L Normal 98-107 [facility] Comment on above: Performed By: #### Jaspreet AB46, LAB62, LAB17 ####Engraving Operator: YOHANA JARQUIN ([id number])[facility] ([facility])[address] [place] [address] CO2 [Moles/Vol] 26 mmol/L Normal 22-29 [facility] Comment on above: Performed By: #### Jaspreet AB46, LAB62, LAB17 ####Engraving Operator: YOHANA JARQUIN ([phone])[facility])[address] [place] [address] Creatinine [Mass/Vol] 0.97 mg/dL Normal 0.72-1.25 [facility] Comment on above: Performed By: #### L AB46, LAB62, LAB17 ####Engraving Operator: YOHANA JARQUIN ([phone])[facility])[address] [place] [address] GLOMERULAR FILTRATION RATE ML/MIN/1.73 SQ M.PREDICTED >90.0 Normal >60.0 [facility] Comment on above: Result Comment: Calc ulation based on the Chronic Kidney Disease Epidemiology Collaboration (CKD-EPI) equation refit without adjustment for race Performed By: #### Jaspreet LABOY, LAB62, LAB17 ####Engraving Operator: YOHANA JARQUIN ([phone])[facility])[address] [place] [address] Glucose [Mass/Vol] 106 mg/dL High 74-100 [facility] Comment on above: Performed By: #### Jaspreet LABOY, LAB62, LAB17 ####Engraving Operator: YOHANA JARQUIN ([id number])[facility])[address] [place] [address] Potassium [Moles/Vol] 4.0 mmol/L Normal 3.5-5.1 [facility] Comment on above: Result Comment: [facility] potassium values may be up to 0.5 mmol/L lower than serum values. Performed By: #### Jaspreet LABOY, LAB62, LAB17 ####Engraving Operator: YOHANA JARQUIN ([phone])[facility])[address] [place] [address] Protein [Mass/Vol] 8.2 g/dL Normal 6.4-8.3 [facility] Comment on above: Performed By: #### Jaspreet LABOY LAB62, LAB17 ####Engraving Operator: YOHANA JARQUIN ([phone])[facility])[address] [place] [address] Sodium [Moles/Vol] 140 mmol/L Normal 136-145 [facility] Comment on above: Performed By: #### Jaspreet LABOY LAB62, LAB17 ####Engraving Operator: YOHANA JARQUIN ([id number])[facility])[address] [place] [address] Urea nitrogen [Mass/Vol] 12 mg/dL Normal 8-21 [facility] Comment on above: Performed By: #### Jaspreet LABOY, LAB62, LAB17 ####Engraving Operator: YOHANA JARQUIN ([id number])[facility])[address] [place] [address] Comprehensive metabolic 1998 panelon 08-04-2024 Albumin [Mass/Vol] 4.2 g/dL 3.5 - 5.0 g/dL [facility] ALP [Catalytic activity/Vol] 79 U/L 40 - 150 U/L [facility] ALT [Catalytic activity/Vol] 284 U/L High NINF - 40 U/L [facility] Anion gap [Moles/Vol] 14 mmol/L High 3 - 13 mmol/L [facility] AST [Catalytic activity/Vol] 237 U/L High NINF - 34 U/L [facility] Bilirubin [Mass/Vol] 0.4 mg/dL NINF - 1.2 mg/dL [facility] Calcium [Mass/Vol] 8.6 mg/dL 8.4 - 10. 2 mg/dL [facility] Chloride [Moles/Vol] 100 mmol/L 98 - 10 7 mmol/L [facility] CO2 [Moles/Vol] 26 mmol/L 22 - 29 mmol/L [facility] Creatinine [Mass/Vol] 0.97 mg/dL 0.72 - 1.25 mg/dL [facility] GFR/1.73 sq M.predicted (S/P/Bld) [Vol rate/Area] - PINF [facility] Comment on above: Calculation based on the Chronic Kidney Disease Epidemiology Collaboration (CKD-EPI) equation refit without adjustment for race Glucose [Mass/Vol] 106 mg/dL High 74 - 100 mg/dL [facility] Potassium [Moles/Vol] 4 mmol/L 3.5 - 5.1 mmol/L [facility] Comment on above: Plasma potassium rosy ues may be up to 0.5 mmol/L lower than serum values. Protein [Mass/Vol] 8.2 g/dL 6.4 - 8.3 g/dL [facility] Sodium [Moles/Vol] 140 mmol/L 136 - 145 mmol/L [facility] Urea nitrogen [Mass/Vol] 12 mg/dL 8 - 21 mg/dL [facility] DRUGS OF ABUSEon 08-04-2024 AMPHETAMINE SCREEN Negative Normal [facility] Comment on above: Performed By: #### L [id number] ####Engraving Operator: YOHANA JARQUIN ([id number])[facility] ([facility])[address] [place] [address] BARBITURATES SCREEN Negative Normal [facility] Comment on above: Performed By: #### L [id number] ####Engraving Operator: YOHANA JARQUIN ([id number])[facility] ([facility])[address] [place] [address] BENZODIAZEPINE SCREEN Negative Normal [facility] Comment on above: Performed By: #### L [id number] ####Engraving Operator: YOHANA JARQUIN ([phone])[facility] ([facility])[address] [place] [address] COCAINE METAB. SCREEN Negative Normal [facility] Comment on above: Performed By: #### L [id number] ####Engraving Operator: YOHANA JARQUIN ([phone])[facility])[address] [place] [address] FENTANYL SCREEN, UR QUAL Negative Normal [facility] Comment on above: Result Comment: MELISSA Centeno COMMENTS: The expected value for all of [...] under separate order. Performed By: #### L [id number] ####Engraving Operator: YOHANA JARQUIN ([id number])[facility] [place] [address] METHADONE SCREEN Negative Normal [facility] Comment on above: Performed By: #### L [id number] ####Engraving Operator: YOHANA JARQUIN ([id number])[facility] ([facility])[address] [place] [address] OPIATES SCREEN Negative Normal [facility] Comment on above: Performed By: #### L [id number] ####Engraving Operator: YOHANA JARQUIN ([id number])[facility] [place] [address] OXYCODONE SCREEN Negative Normal [facility] Comment on above: Performed By: #### L [id number] ####Engraving Operator: YOHANA JARQUIN ([id number])[facility] ([facility])[address] [place] [address] PHENCYCLIDINE SCREEN Negative Normal [facility] Comment on above: Performed By: #### L [id number] ####Engraving Operator: YOHANA JARQUIN ([id number])[facility] ([facility])[address] [place] [address] ECG 12-LEADon 08-04-2024 ECG 12-LEAD IMPRESSION: Sinus rhythm Short HI interval no stemi artifact Electronically Signed On 08-04-2024 01:38:44 EST by Madelyn Crain [facility] ED Nursing Noteon 08-04-2024 ED Nursing Note Complete report provided. To ed of [facility]. Normal [facility] ED Nursing Note A/ox3. Independent t o stretcher. Discharged to [facility]. Belongings set with ems transport. Normal [facility] ED Nursing Note Luzma Tech at beds tk obtaining vitals. Normal [facility] ED Nursing Note CHRISTO Fox giving karena ent warm blanket for comfort. Normal [facility] ED Nursing Note EKG at patient bedside. [facility] ED Nursing Note Dr. Tellez at patient bedside. Normal [facility] ED Nursing Note Pt changed into 2 go wns and wanded by officer. Pt has 1 belonging bag. with pt in 47. Normal [facility] ED Provider Noteon ED Provider Note Emergency [...] emergency department for depression. Patient sent from [facility] for medical clearance. Patient presented there with his mother who has been worried about him. He states he had some social issues ongoing with his ex partner. Denies any abuse. Denies hallucinations alcohol drug use homicidal thoughts. Apparently at [facility] he endorsed SI but denies that here. Denies prior attempts. States he is not on any psychiatric medications but he was given Ativan and hydroxyzine reportedly at [facility]. He lives at home with his 10-year-old [...] [employer] Madelyn Crain MD 08/04/24 0141 [facility] ED Provider Note EMERGENCY DEPARTMENT ENCOUNTER Pt Name: Neal Larios Birthdate 1990 Date of evaluation: 08/04/2024 ED Provider: Prosper Tellez DO CHIEF COMPLAINT Chief Complaint Patient presents with Suicidal Patient was sent from [facility] [place] for medical clearance. Patient is depressed. Patient [...] COVID 04/2021 Eczema IBS (irritable bowel syndrome) [place] exposure MRSA (methicillin resistant staph aureus) culture positive Substance abuse ([facility]) ([facility]) SURGICAL HISTORY Past Surgical History: Procedure Laterality [...] grade. . Her biological mom lives in [place]. No significant other right now. Has 2 [...] Normal ran (more content not included)... Normal [facility] ETHANOLon 08-04-2024 ETHANOL IN SER/PLAS 274 mg/dL High <10 [facility] Comment on above: Result Comment: MELISSA Centeno COMMENTS: BRIAR WOOD SORTER depression is seen >100 mg/dL. NOTE: This result is for medical treatment only. Analysis performed using non-forensic procedures. Performed By: #### L AB46, LAB62, LAB17 ####Engraving Operator: YOHANA JARQUIN ([id number])[facility] ([facility])[address] [place] [address] Ethanol (Bld) [Mass/Vol]on 0 08-04-2024 Ethanol [Mass/Vol] 274 mg/dL High NINF - 10 mg/dL [facility] BRIAR WOOD SORTER depression is se en >100 mg/dL. NOTE: This result is for medical treatment only. Analysis performed using non-forensic procedures. [facility] Laboratory - Chemistry and C hemistry - challengeon 08-04-2024 CK [Catalytic activity/Vol] 355 U/L High 30 - 185 U/L [facility] - Drug toxicology on 08-04-2024 Amphetamines Screen method >1000 ng/mL Ql (U) Negative [facility] Barbiturates Screen method >200 ng/mL Ql (U) Negative [facility] Benzodiazepines Ql (U) Negative [facility] Methadone Screen Ql (U) Negative [facility] Opiates Screen Ql (U) Negative [facility] oxyCODONE Ql (U) Negative [facility] Phencyclidine Ql (U) Negative [facility] Laboratory - Microbiology an d Antimicrobial susceptibilityOrdered By: Pilar Burkett on 08-04-2024 SARS-CoV-2 (COVID-19) Ag IA.rapid Ql (Resp) Negative Negative [facility] Comment on above: A negative result do es not rule out the possibility of SARS-CoV-2 infection. NAAT-based methods should be considered for symptomatic patients presenting greater than seven days after onset of symptoms. Method: Lateral flow immunoassay. Fact sheets for healthcare providers and patients can be found at the following sites: https://www.fda.gov/media/355979/download https://www.fda.gov/media/761216/download No Panel Informationon 08-04 Interpretation and review of laboratory results Abnormal [facility] COCAINE METAB. SCREEN Negative [facility] FENTANYL SCREEN, UR QUAL Negative [facility] The expected value f or all of [...] needed, request confirmation under separate order. [facility] P Dale 58 degrees [facility] HI Interval 62 ms [facility] QRS Dale 45 degrees [facility] QRSD Interval 89 ms [facility] QT Interval 381 ms [facility] QTC Interval 403 ms [facility] T Wave Dale 31 degrees [facility] Sinus rhythm Short HI interval no stemi artifact Electronically Signed On 08-04-2024 01:38:44 EST by Madelyn Crain CV Madelyn Ann MD - 08/04/2024 IMPRESSION: Sinus rhythm Short HI interval no stemi artifact Electronically Signed On 08-04-2024 01:38:44 EST by Madleyn Crain [facility] SARS-COV-2 ANTIGENon 025 SARS-COV-2 ANTIGEN SARS-COV-2 ANTIGEN -BINAX Reference Negative Negative A negative result does not rule out the possibility of SARS-CoV-2 infection. NAAT-based methods should be considered for symptomatic patients presenting greater than seven days after onset of symptoms. Method: Lateral flow immunoassay. Fact sheets for healthcare providers and patients can be found at the following sites: https://www.fda.gov/med ia/342949/download https://www.fda.gov/med ia/353628/download Normal [facility] Comment on above: Performed By: #### L [id number] ####Engraving Operator: YOHANA JARQUIN ([id number])[facility] ([address] SARS-CoV-2 (COVID-19) Ag IA. rapid Ql (Resp)Ordered By: Pilar Burkett on 08-04-2024 Interpretation and review of laboratory results Normal [facility] Urinalysis complete panel (U )Ordered By: Nicolás Orellana on 08-04-2024 Bacteria LM.HPF (Urine sed) [#/Area] Negative Negative /HPF [facility] Bilirubin Ql (U) Negative Negative mg/dL [facility] Clarity (U) Clear Clear [facility] Color (U) Yellow Lt. Yellow [facility] Epithelial cells.squamous LM.HPF (Urine sed) [#/Area] 0-2 [facility] Glucose Ql (U) Normal Normal (<70) mg/dL [facility] Hemoglobin Ql (U) 0.1 mg/dL Abnormal Negative [facility] Hyaline casts Auto (Urine sed) [#/Area] Negative Negative /LPF [facility] Interpretation and review of laboratory results Abnormal [facility] Ketones (U) [Mass/Vol] Negative Negat danielle mg/dL [facility] Leukocyte esterase Test strip Ql (U) Negative Negative [place]/uL [facility] Mucus LM.HPF (Urine sed) [#/Area] Few Negative /LPF [facility] Nitrite Ql (U) Negative Negative [facility] pH (U) 7.0 [pH] 5.0 - 8.0 pH [facility] Protein (U) [Mass/Vol] 600 mg/dL Abnormal Negative [facility] RBC LM.HPF (Urine sed) [#/Area] 0-2 [facility] Specific gravity (U) [Rel density] 1.025 1.005 - 1.030 [facility] Urobilinogen (U) [Mass/Vol] Normal Normal (0-1) mg/dL [facility] WBC LM.HPF (Urine sed) [#/Area] 0-2 [facility] Vital signson 08-04-2024 Heart rate 67 /min bpm [facility] 36on 01-16-2024 36 Rx sent. Follow up a s scheduled. [facility] 36 Prescription Request : Last medication check: 10/25/22 Last physical exam: 05/01/23 Next scheduled appointment: 05/03/24 Last date of refill on this medication 07/25/23 [facility] CNOVon 08-13-2023 CNOV Office Visit (UCWSTR ) ANNAMARIE LARIOS ([id number]) 1990 M Date Time Provider Department 08/13/23 7:00 PM NATY NAGY [facility] During your visit today, we recorded the following information about you: Temperature Pulse Respiration Blood pressure 101.5 degrees 122/minute 18/minute 142/86 Weight 89.8 kg Naty Nagy APRN.CNP 08/14/2023 9:40 AM Signed This note was created using Mosec, Mobile Secretaryriter. Subjective Annamarie Larios is a 33 year [...] (attention deficit hyperactivity disorder) Bipolar 1 disorder ([facility]) Eczema Hx MRSA infection IBS (irritable bowel syndrome) Substance abuse ([facility]) No past surgical history on file. ALLERGIES [...] tenderness or frontal sinus tenderness. Mouth/Throat: Lips: [place]. No lesions. Mouth: Mucous membranes are moist. No oral lesions. Tongue: No lesions. Palate: No lesions. Pharynx: Oropharynx is clear. Uvula midline. Posterior oropharyngeal erythema present. No pharyngeal swelling, oropharyngeal exudate or uvula swelling. Tonsils: No tonsillar exudate or tonsillar abscesses. 2+ on the right. 2+ on the left. Eyes: General: Lids are normal. No aller (more content not included)... Normal [facility] STREP A MOLECULAR (POC)on Procedural Control Valid [facility] Strep A (POCT) Positive Abnormal Negative [facility] Nilson 05-20-2023 ALT [Catalytic activity/Vol] 23 U/L 9 - 46 U/L [facility] Brian 05-20-2023 AST [Catalytic activity/Vol] 22 U/L 10 - 40 U/L [facility] Lipid 1996 panelon 3 Cholesterol [Mass/Vol] 204 mg/dL High [facility] - 200 mg/dL [facility] Cholesterol in HDL [Mass/Vol] 45 mg/dL > OR = 40 [facility] Cholesterol in LDL [Mass/Vol] 131 mg/dL High mg/dL (calc) [facility] Comment on above: Reference range: <10 0 Desirable range <100 mg/dL for primary prevention; <70 mg/dL for patients with CHD or diabetic patients with > or = 2 CHD risk factors. LDL-C is now calculated using the Juvenal-Sri calculation, which is a validated novel method providing better accuracy than the Friedewald equation in the estimation of LDL-C. Juvenal DAVIS et al. WINSTON. 2013;310(19): 0094-8945 (http://education.Ancanco.[employer]faq/DUG838) Cholesterol non HDL [Mass/Vol] 159 mg/dL High [facility] Comment on above: For patients with di abetes plus 1 major ASCVD risk factor, treating to a non-HDL-C goal of <100 mg/dL (LDL-C of <70 mg/dL) is considered a therapeutic option. Cholesterol.total/Choles terol in HDL [Mass ratio] 4.5 {ratio} [facility] Interpretation and review of laboratory results Abnormal [facility] Triglyceride [Mass/Vol] 167 mg/dL High NINF - 150 mg/dL [facility] No Panel Informationon 05-20 [facility] CNOVon 10-21-2022 CN Office Visit (UCWSTR ) ANNAMARIE LARIOS ([id number]) 1990 M Date Time Provider Department 10/21/22 8:30 AM DIDIER KILGORE [facility] During your visit today, we recorded the following information about you: Temperature Pulse Respiration Blood pressure 98.4 degrees 100/minute 21/minute 132/80 Weight 84.6 kg Didier Kilgore APRN.SENIOR SALES MANAGER 10/21/2022 9:00 AM Signed Subjective HPI Nontoxic-appearing [...] infection IBS (irritable bowel syndrome) Substance abuse ([facility]) No past surgical history on file. ALLERGIES [...] swelling or pain on movement. Mouth/Throat: Lips: [place]. Mouth: Mucous membranes are moist. Pharynx: Oropharynx [...] of care. This note was generated using EndPlay software. It may contain errors in wording, punctuation, or spelling. Didier Kilgore, KEY[place].SENIOR SALES MANAGER Allergies As of Date: 10/21/2022 Noted Allergy Reaction CEPHLASPORINS (CEPHALOSPORINS) (more content not included)... Normal [facility] STREP A MOLECULAR (POC)on Procedural Control Valid [facility] Strep A (POCT) Negative Negative [facility] CNOVon 09-21-2022 CNOV Office Visit (UCWSTR ) LARIOSANNAMARIE PRESTON ([id number]) 1990 M Date Time Provider Department 09/21/22 10:00 AM IAIN LOBO WS During your visit today, we recorded the following information about you: Temperature Pulse Respiration Blood pressure 99.2 degrees 72/minute 16/minute 128/82 Weight 84 kg Iain Lobo PA-C 09/21/2022 10:31 AM Signed This note was created using Mosec, Mobile Secretaryriter. Subjective Annamarie Larios is a 32 year [...] (attention deficit hyperactivity disorder) Bipolar 1 disorder ([facility]) Eczema Hx MRSA infection IBS (irritable bowel syndrome) Substance abuse ([facility]) Current Outpatient Medications Medication Sig Dispense Refill [...] STREP A MOLECULAR (POC) Iain Lobo PA-C Allergies As of Date: 09/21/2022 Noted Allergy Reaction CEPHLASPORINS (CEPHALOSPORINS) 06/21/2015 4 - Hives PENICILLINS 01/29/2012 4 - Hives Comments: And all cousins of pcn Date Reviewed: 05/15/2022 Reviewed by: Shi Lopez MA - Fully Assessed Reason for Visit: Sore Throat [200] Cmt: ST, [place], fatigue and cough x 5 days Primary Visit Diagnosis:Viral URI [J06.9] Order(s):STREP A MOLECULAR (POC) [4090684] Order #: [id number]. #:[id number] Prescriptions as of 09/21/2022 - famotidine (PEPCID) 40 mg tablet Take 40 mg by mouth. - EPINEPHrine (EPIPEN 2-KAMILA) 0.3 mg/0.3 mL auto-injector Inject 0.3 mL intramuscularly as needed. Problem List As Of Date: 09/21/2022 (None) Encounter Status:Closed by IAIN LOBO on 09/21/22 Normal [facility] STREP A MOLECULAR (POC)on Procedural Control Valid [facility] Strep A (POCT) Negative Negative [facility] STREP A MOLECULAR (POC)on Procedural Control Valid [facility] Strep A (POCT) Negative Negative [facility] CR Chest PA/LATon 06-07-2021 CR Chest PA/LAT Patient Name: ANNAMARIE CORLEY Diagnostic Radiology ACCESSION EXAM DATE/TIME PROCEDURE ORDERING PROVIDER [id number] 06/07/2021 13:35 EST CR Chest PA and LAT [id number] -[facility] CPT code 81287 Reason For Exam (CR Chest PA and [...] Transcribed Date and Time: 06/07/2021 2:35 Normal [facility] XR CHEST (2 VW)on 06-07-2021 Patient Name: ANNAMARIE CORLEY Diagnostic Radiology ACCESSION EXAM DATE/TIME PROCEDURE ORDERING PROVIDER [id number] 06/07/2021 13:35 EST CR Chest PA & LAT [id number] [facility] CPT code 29075 Reason For Exam (CR Chest PA & [...] HARLAN Transcribed Date and Time: 06/07/2021 2:35 [facility] Addy Walker MD - 06/07/2021 Patient Name: ANNAMARIE LARIOS Diagnostic Radiology ACCESSION EXAM DATE/TIME PROCEDURE ORDERING PROVIDER [id number] 06/07/2021 13:35 EST CR Chest PA & LAT [id number] [facility] CPT code 27117 Reason For Exam (CR Chest PA & [...] night. Objective Data: Objective Information: T PRBPSpO2 Value36.40606997/57403% Date/Time12/23 7: 7: 7: 7: 7:31 Range(36.2C - 37.2C ) (51 - 92 ) (16 - 17 ) (105 - 138 )/ (59 - 79 ) (96% - 100% ) Highest temp of 37.2 C was recorded at 12/22 10:13 Pain reported at 12/23 6:45: 0 = None T PRBPSpO2 Value36.05404084/40235% Date/Time12/23 7: 7: 7: 7: 7:31 Range(36.2C [...] the note. I personally evaluated the patient [id number] Electronic Signatures: Ondina Slater) (Signed 05-Jan-2019 09:19) Authored: Signature/Cosignature/A ttestation Co-Signer: Assessment and Plan, Signature/Cosignature/A ttestation Jody Ochoa (Fellow)) (Signed 23-Dec-2018 14:37) Authored: Service, Subjective Data, Objective Data, Assessment and Plan, Signature/Cosignature/A ttestation Last Updated: 05-Jan-2019 09:19 by Ondina Slater) Normal [facility] Cytologyon 12-23-2018 [facility] Cytology Patient Name ANNAMARIE LARIOS Date of Procedure: 12/23/2018 Date Reported: 12/24/2018 Date Received: 12/23/2018 Date of / Sex 1990 (Age: 28) / M Race: WHITE Submitting Physician: LEIGH WHEELER MD Other External # FINAL CYTOLOGICAL INTERPRETATION A. ESOPHAGEAL BRUSH: -- NO MALIGNANT CELLS IDENTIFIED. -- FUNGAL ORGANISMS PRESENT MORPHOLOGICALLY CONSISTENT WITH DOMINGA SPECIES. -- SEE SURGICAL SPECIMEN [id number]. The gross and/or microscopic findings were reviewed in conjunction with pathology resident, Eunice Page M.D. Electronically Signed Out By JENNIFER WAGNER III, D.O. By the signature on this report, the individual or group listed as making the Final Interpretation/Diagnosi s certifies that they have reviewed this case. 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 Date of Procedure: 12/23/2018 Date Received: 12/23/2018 Date Reported 12/25/2018 Submitting Physician: LEIGH WHEELER MD Location: Copy To/Referring/Attending: NATY NAGY CNP Other External # MD Ondina FOLEY MD [...] toto in one cassette. DPG dpg/12/23/2018 Normal [facility] Comment on above: Performed By: #### U HCS #### [facility] Surgical Pathology Department [address] [place] [facility] [address] BASIC METABOLIC PANELon 06-2 Anion gap [Moles/Vol] 16 mmol/L Normal 10 - 20 [facility] Comment on above: Performed By: #### B MP #### [facility] [address] [facility] [place] [address] Calcium [Mass/Vol] 10.2 mg/dL Normal 8.6 - 10.6 [facility] Comment on above: Performed By: #### B MP #### [facility] [address] [place] [address] Chloride [Moles/Vol] 102 mmol/L Normal 98 - 107 [facility] Comment on above: Performed By: #### B MP #### [facility] [address] [place] [address] Creatinine [Mass/Vol] 1.02 mg/dL Normal 0.50 - 1.30 [facility] Comment on above: Performed By: #### B MP #### [facility] [address] [place] [address] GFR- AM. >60 Normal >60 [facility] Comment on above: Result Comment: CALC ULATIONS OF ESTIMATED GFR ARE PERFORMED USING THE MDRD STUDY EQUATION FOR THE IDMS-TRACEABLE CREATININE METHODS. CLIN CHEM 2007;53:766-72 Performed By: #### B MP #### [facility] [address] [place] [address] GFR-NON AM. >60 Normal >60 [facility] Comment on above: Performed By: #### B MP #### [facility] [address] [place] [address] Glucose [Mass/Vol] 94 mg/dL Normal 74 - 99 [facility] Comment on above: Performed By: #### B MP #### [facility] [address] [place] [address] HCO3 (Bld) [Moles/Vol] 27 mmol/L Normal 21 - 32 [facility] Comment on above: Performed By: #### B MP #### [facility] [address] [place] [address] Potassium [Moles/Vol] 4.4 mmol/L Normal 3.5 - 5.3 [facility] Comment on above: Performed By: #### B MP #### [facility] [address] [place] [address] Sodium [Moles/Vol] 141 mmol/L Normal 136 - 145 [facility] Comment on above: Performed By: #### B MP #### [facility] [address] [place] [address] Urea nitrogen [Mass/Vol] 10 mg/dL Normal 6 - 23 [facility] Comment on above: Performed By: #### B MP #### [facility] [address] [place] [address] CBC AND DIFFERENTIALon 12-22 % AUTOMATED IMMATURE GRAN 0.3 % Normal 0.0 - 0.9 [facility] Comment on above: Result Comment: Perc ent differential counts (%) should be interpreted in the context of the absolute cell counts (cells/L). Performed By: #### C BCDF #### [facility] [address] [place] [address] Basophils (Bld) [#/Vol] 0.15 10*3/uL High 0.00 - 0.1 0 [facility] Comment on above: Performed By: #### C BCDF #### [facility] [address] [place] [address] Basophils/100 WBC (Bld) 1.4 % Normal 0.0 - 2.0 [facility] Comment on above: Performed By: #### C BCDF #### [facility] [address] [place] [address] Eosinophils (Bld) [#/Vol] 0.35 10*3/uL Normal 0.00 - 0.70 [facility] Comment on above: Performed By: #### C BCDF #### [facility] [address] [place] [address] Eosinophils/100 WBC (Bld) 3.2 % Normal 0.0 - 6.0 [facility] Comment on above: Performed By: #### C BCDF #### [facility] [address] [place] [address] Erythrocyte distribution width (RBC) [Ratio] 14.0 % Normal 11.5 - 14.5 [facility] Comment on above: Performed By: #### C BCDF #### [facility] [address] [place] [address] Hematocrit (Bld) [Volume fraction] 49.7 % Normal 41.0 - 52.0 [facility] Comment on above: Performed By: #### C BCDF #### [facility] [address] [place] [address] Hemoglobin (Bld) [Mass/Vol] 16.8 g/dL Normal 13.5 - 17.5 [facility] Comment on above: Performed By: #### C BCDF #### [facility] [address] [place] [address] Lymphocytes (Bld) [#/Vol] 3.79 10*3/uL Normal 1.20 - 4.80 [facility] Comment on above: Performed By: #### C BCDF #### [facility] [address] [place] [address] Lymphocytes/100 WBC (Bld) 34.3 % Normal 13.0 - 44.0 [facility] Comment on above: Performed By: #### C BCDF #### [facility] [address] [place] [address] MCHC (RBC) [Mass/Vol] 33.8 g/dL Normal 32.0 - 36.0 [facility] Comment on above: Performed By: #### C BCDF #### [facility] [address] [place] [address] MCV (RBC) [Entitic vol] 88 fL Normal 80 - 100 [facility] Comment on above: Performed By: #### C BCDF #### [facility] [address] [place] [address] Monocytes (Bld) [#/Vol] 1.32 10*3/uL High 0.10 - 1.0 0 [facility] Comment on above: Performed By: #### C BCDF #### [facility] [address] [place] [address] Monocytes/100 WBC (Bld) 11.9 % Normal 2.0 - 10.0 [facility] Comment on above: Performed By: #### C BCDF #### [facility] [address] [place] [address] Neutrophils (Bld) [#/Vol] 5.41 10*3/uL Normal 1.20 - 7.70 [facility] Comment on above: Performed By: #### C BCDF #### [facility] [address] [place] [address] Neutrophils/100 WBC (Bld) 48.9 % Normal 40.0 - 80.0 [facility] Comment on above: Performed By: #### C BCDF #### [facility] [address] [place] [address] Nucleated RBC/100 WBC (Bld) [Ratio] 0.0 /100 WBC Normal 0.0-0.0 [facility] Comment on above: Performed By: #### C BCDF #### [facility] [address] [place] [address] Platelets (Bld) [#/Vol] 480 10*3/uL High 150 - 450 [facility] Comment on above: Performed By: #### C BCDF #### [facility] [address] [place] [address] RBC (Bld) [#/Vol] 5.64 x10E12/L Normal 4.50 - 5.90 [facility] Comment on above: Performed By: #### C BCDF #### [facility] [address] [place] [address] WBC (Bld) [#/Vol] 11.1 10*3/uL Normal 4.4 - 11.3 [facility] Comment on above: Performed By: #### C BCDF #### [facility] [address] [place] [address] COAGULATION SCREENon 019 aPTT Coag (Bld) [Time] 36 s Normal 28 - 38 [facility] Comment on above: Result Comment: THE APTT IS NO LONGER USED FOR MONITORING UNFRACTIONATED HEPARIN THERAPY. FOR MONITORING HEPARIN THERAPY, USE THE HEPARIN ASSAY. Performed By: #### C OAGS #### [facility] [address] [place] [address] INR Coag (PPP) [Relative time] 1.0 {INR} Normal 0.9 - 1.1 [facility] Comment on above: Performed By: #### C OAGS #### [facility] [address] [place] [address] PT Coag (PPP) [Time] 11.0 s Normal 9.7 - 12.7 [facility] Comment on above: Performed By: #### C OAGS #### [facility] [address] [place] [address] Consult-Gastroenterologyon 0 12-22-2018 Consult-Gastroenterology Service: Service: Gastroenterology [...] cephalosporins: Hives/Urticaria Objective: Objective Information: T PRBPSpO2 Value36.99994326/7698% Date/Time12/22 18: 18: 18: 18: 18:27 Range(36.2C [...] the note. I personally evaluated the patient [id number] Electronic Signatures: Ondina Slater) (Signed 05-Jan-2019 09:09) Authored: Objective, Signature/Cosignature/A ttestation Co-Signer: History of Present Illness, Objective, Assessment/Recommendati ons, Signature/Cosignature/A ttestation Jody Ochoa (Fellow)) (Signed 22-Dec-2018 21:27) Authored: Service, History of Present Illness, Allergies, Objective, Assessment/Recommendati ons, Signature/Cosignature/A ttestation Last Updated: 05-Jan-2019 09:09 by Ondina Slater) Normal [facility] Provider Note - ED v2on 11-29 Provider [...] 19 days ago. He was seen at [facility] ED right afterwards with negative chest X-ray and abdominal xray. Patient was then referred to GI and ENT doctors with no finding from esophagoscopy. In his barium esophagram done yesterday at [facility], there was a foreign body of 1.3 x 0.8cm in the upper esophagus causing focal esophagus dilation. He was referred to GI , however due to insurance purposes was told to come to [facility] for GI consult. Patient has been [...] SIGNS: T PRBP SpO2O2(LPM) %FiO2 Method 22-Dec-2018 13:46:[id number] 100 room air, no respiratory support 22-Dec-2018 11:36:[id number]/79 96 room air, no respiratory support 22-Dec-2018 10:13:00-37.2 room air, no respiratory support MEDICAL DECISION MAKING/ED COURSE MDM/ED COURSE: The patient remains clinically and hemodynamically stable while in the ED. Appears to be resting comfortably without distress, tolerating secretions without difficulty. Denies painful swallowing. Endorses FB sensation in throat s/p swallowing aluminum foil 2 days ago. Esophogram yesterday at [facility] revealed FB in upper esophagus. Patient referred [...] ill patient: no Electronic Signatures: Sobeida More (MICROFICHE CAMERA OPERATOR-SENIOR SALES MANAGER) (Signed 22-Dec-2018 17:00) Authored: Provider Note - ED v2 Devyn Jimenez (DO) (Signed 22-Dec-2018 16:50) Authored: Provider Note - ED v2 Co-Signer: Provider Note - ED v2 Last Updated: 22-Dec-2018 17:00 by Sobeida More (MICROFICHE CAMERA OPERATOR-SENIOR SALES MANAGER) References: 1. Data Referenced From Triage - ED 12/22/2018 10:13 AM Normal [facility] Risk Screen - Adult Emergenc yon 12-22-2018 [...] Learning Preferencesindividual instruction Cultural Considerationsnone Developmental Considerationsnone Yarsani Considerationsnone Learning Assessment (Other Learner): Learning Assessment (Other Learner): Other learner availableyes... Learnermother Factors Influencing Readiness to Learnacuteness of illness Factors that Impact Ability to Learnnone Devices/Methods Used to Communicatenone Learning Preferencesindividual instruction Cultural Considerationsnone Developmental Considerationsnone Yarsani Considerationsnone Pressure Injury/TB/Substance: Pressure Injury: Pressure Injury Present on Admissionno Do you have a coughno Substance Use Current or Former Historynever: Cigarette/Tobacco, e-Cigarette/Vaping, Alcohol, Street Drugs Admission Risk Screen: Significant IndicatorsComplete CAGE: CAGE: Is this an injured patient at a Trauma Center ([facility]/Peri/Rodney/Trina conde/[facility]): no Electronic Signatures: Sunitha Ibarra (RN) (Signed 22-Dec-2018 10:53) Authored: Preferred Language, Advanced Directives, Family Violence Adult, Learning Assessment (Patient), Learning Assessment (Other Learner), Pressure Injury/TB/Substance, CAGE Last Updated: 22-Dec-2018 10:53 by Sunitha Ibarra (RN) Normal [facility] TH CHEST 2 VIEW PA AND LATon 12-22-2018 TH CHEST 2 VIEW PA AND LAT Patient Name: LUIS ENRIQUE DE LUNA STUDY: TH CHEST 2 VIEW PA AND LAT; 12/22/2018 12:05 pm INDICATION: swallowed aluminum foil. COMPARISON/CORRELATION: None available. ACCESSION NUMBER(S): [id number] ORDERING CLINICIAN: SOBEIDA MORE TECHNIQUE: PA, Lateral [...] as stated. This study was interpreted at [place], [place]. Electronically signed by: ANUJ BOO MD Normal [facility] Triage - EDon 12-22-2018 Triage - ED [...] Patient has homicidal thoughts: no ESCOBAR: 3 [place] Suicide Suicide Risk Screen In the Past [...] Accompanied By: self Language: Spoken Language Preferred: Belarusian Reading Language Preferred: Belarusian Engineering Director Requested: no architectural job captain was requested PRIMARY ASSESSMENT ANNAMARIE LARIOS's primary [...] (Signed 22-Dec-2018 18:07) Authored: Triage Quentin Carter (PHYSICIAN)) (Signed 22-Dec-2018 17:54) Authored: Triage Noemi Gabriel (RN) (Signed 22-Dec-2018 16:10) Authored: Triage Edwina Bass (CHRISTO) (Signed 22-Dec-2018 10:17) Authored: Triage, Past Medical History Last Updated: 22-Dec-2018 18:07 by Darleen Mayberry (RN) Normal [facility] Vital Signs Date Time Vital Sign Value Performing Clinician Facility 02-16-2025 09:24-0400 Heart rate 78 /min Dr. Nikita Sorensen MD Work Phone: [facility] 02-16-2025 09:13-0400 Body temperature 97.6 [degF] Dr. Nikita Sorensen MD Work Phone: [facility] 02-16-2025 09:13-0400 Diastolic blood pressure 82 mm[Hg] Dr. Nikita Sorensen MD Work Phone: [facility] 02-16-2025 09:13-0400 Respiratory rate 16 /min Dr. Nikita Sorensen MD Work Phone: [facility] 02-16-2025 09:13-0400 SaO2% (BldA) [Mass fraction] 97 % Dr. Nikita Sorensen MD Work Phone: 7(999)775-809466 [place] [address] 02-16-2025 09:13-0400 Systolic blood pressure 149 mm[Hg] Dr. Nikita Sorensen MD Work Phone: 1(515)008-647285 [place] [address] 02-13-2025 19:33-0400 Body height 175.[address] Nikita Sorensen MD Work Phone: 2(423)203-986185 [place] [address] 02-13-2025 19:33-0400 Body mass index (BMI) [Ratio] 28.8 kg/m2 Dr. Nikita Sorensen MD Work Phone: 6(872)623-669466 [place] [address] 02-13-2025 19:33-0400 Body weight 88.[address] Nikita Sorensen MD Work Phone: 1(284)065-279666 [place] [address] 02-13-2025 18:00-0400 Body temperature 99 [degF] Dr. Nikita Sorensen MD Work Phone: 4(012)838-367066 [place] [address] 02-13-2025 18:00-0400 Diastolic blood pressure 74 mm[Hg] Dr. Nikita Sorensen MD Work Phone: [facility] 02-13-2025 18:00-0400 Heart rate 102 /min Dr. Nikita Sorenesn MD Work Phone: 1(731)704-005866 [place] [address] 02-13-2025 18:00-0400 Respiratory rate 20 /min Dr. Nikita Sorensen MD Work Phone: 7(543)610-810666 [place] [address] 02-13-2025 18:00-0400 SaO2% (BldA) [Mass fraction] 100 % Dr. Nikita Sorensen MD Work Phone: 1(916)840-710666 [place] [address] 02-13-2025 18:00-0400 Systolic blood pressure 165 mm[Hg] Dr. Nikita Sorensen MD Work Phone: [facility] 02-13-2025 14:36-0400 Body height 175.[address] Nikita Sorensen MD Work Phone: [facility] 02-13-2025 14:36-0400 Body mass index (BMI) [Ratio] 28.9 kg/m2 Dr. Nikita Sorensen MD Work Phone: [facility] 02-13-2025 14:36-0400 Body weight 88.[address] Nikita Sorensen MD Work Phone: [facility] 08-04-2024 03:17-0500 Body temperature 97.59 [degF] Madelyn Crain MD Work Phone: [facility] 08-04-2024 03:17-0500 Diastolic blood pressure 70 mm[Hg] Madelyn Crain MD Work Phone: [facility] 08-04-2024 03:17-0500 Heart rate 83 /min Madelyn Crain MD Work Phone: [facility] 08-04-2024 03:17-0500 Respiratory rate 18 /min Madelyn Crain MD Work Phone: [facility] 08-04-2024 03:17-0500 SaO2% (BldA) [Mass fraction] 94 % Madelyn Crain MD Work Phone: [facility] 08-04-2024 03:17-0500 Systolic blood pressure 121 mm[Hg] Madelyn Crain MD Work Phone: [facility] 08-04-2024 01:25-0500 Body height 175.3 cm Madelyn Crain MD Work Phone: [facility] 08-04-2024 01:25-0500 Body mass index (BMI) [Ratio] 28.06 kg/m2 Madelyn Crain MD Work Phone: [facility] 08-04-2024 01:25-0500 Body weight 86.18 kg Madelyn Crain MD Work Phone: [facility] 08-13-2023 18:54-0500 Body temperature 101.5 [degF] Naty Nagy MICROFICHE CAMERA OPERATOR.SENIOR SALES MANAGER Work Phone: [facility] 08-13-2023 18:54-0500 Body weight 89.81 kg Naty Nagy MICROFICHE CAMERA OPERATOR.SENIOR SALES MANAGER Work Phone: [facility] 08-13-2023 18:54-0500 Diastolic blood pressure 86 mm[Hg] Naty Nagy MICROFICHE CAMERA OPERATOR.SENIOR SALES MANAGER Work Phone: [facility] 08-13-2023 18:54-0500 Heart rate 122 /min Naty Nagy MICROFICHE CAMERA OPERATOR.SENIOR SALES MANAGER Work Phone: [facility] 08-13-2023 18:54-0500 Respiratory rate 18 /min Naty Nagy MICROFICHE CAMERA OPERATOR.SENIOR SALES MANAGER Work Phone: [facility] 08-13-2023 18:54-0500 SaO2% (BldA) [Mass fraction] 97 % Naty Nagy MICROFICHE CAMERA OPERATOR.SENIOR SALES MANAGER Work Phone: [facility] 08-13-2023 18:54-0500 Systolic blood pressure 142 mm[Hg] Naty Nagy MICROFICHE CAMERA OPERATOR.SENIOR SALES MANAGER Work Phone: [facility] 05-20-2023 12:50-0500 Diastolic blood pressure 74 mm[Hg] Nasrin Jaffe MD Work Phone: [facility] 05-20-2023 12:50-0500 Heart rate 59 /min Nasrin Jaffe MD Work Phone: [facility] 05-20-2023 12:50-0500 Respiratory rate 11 /min Nasrin Jaffe MD Work Phone: [facility] 05-20-2023 12:50-0500 SaO2% (BldA) [Mass fraction] 99 % Nasrin Jaffe MD Work Phone: [facility] 05-20-2023 12:50-0500 Systolic blood pressure 118 mm[Hg] Nasrin Jaffe MD Work Phone: [facility] 05-20-2023 12:25-0500 Body temperature 97 [degF] Nasrin Jaffe MD Work Phone: [facility] 05-20-2023 09:12-0500 Body height 175.3 cm Nasrin Jaffe MD Work Phone: [facility] 05-20-2023 09:12-0500 Body mass index (BMI) [Ratio] 27.62 kg/m2 Nasrin Jaffe MD Work Phone: [facility] 05-20-2023 09:12-0500 Body weight 84.82 kg Nasrin Jaffe MD Work Phone: [facility] 05-01-2023 09:11-0400 Body temperature 98.4 [degF] Mare Bridenthal MICROFICHE CAMERA OPERATOR - SENIOR SALES MANAGER Work Phone: [facility] 05-01-2023 09:11-0400 Diastolic blood pressure 84 mm[Hg] Mare Bridenthal MICROFICHE CAMERA OPERATOR - SENIOR SALES MANAGER Work Phone: [facility] 05-01-2023 09:11-0400 Heart rate 84 /min Mare Bridenthal MICROFICHE CAMERA OPERATOR - SENIOR SALES MANAGER Work Phone: [facility] 05-01-2023 09:11-0400 SaO2% (BldA) [Mass fraction] 98 % Mare Bridenthal MICROFICHE CAMERA OPERATOR - SENIOR SALES MANAGER Work Phone: [facility] 05-01-2023 09:11-0400 Systolic blood pressure 129 mm[Hg] Mare Bridenthal MICROFICHE CAMERA OPERATOR - SENIOR SALES MANAGER Work Phone: [facility] 04-30-2023 13:29-0400 Body height 175.3 cm Edwina Delaney PA-C Work Phone: [facility] 04-30-2023 13:29-0400 Body mass index (BMI) [Ratio] 27.62 kg/m2 Edwinamanoj Gutierrezeder PA-C Work Phone: [facility] 04-30-2023 13:29-0400 Body weight 84.82 kg Edwina Delaney PA-C Work Phone: [facility] 04-19-2023 19:43-0400 Diastolic blood pressure 62 mm[Hg] [facility] 04-19-2023 19:43-0400 Heart rate 72 /min [facility] 04-19-2023 19:43-0400 Respiratory rate 18 /min [facility] 04-19-2023 19:43-0400 SaO2% (BldA) [Mass fraction] 97 % [facility] 04-19-2023 19:43-0400 Systolic blood pressure 133 mm[Hg] [facility] 04-19-2023 18:15-0400 Body height 175.26 cm [facility] 04-19-2023 18:15-0400 Body mass index (BMI) [Ratio] 27.3 kg/m2 [facility] 04-19-2023 18:15-0400 Body temperature 97.6 [degF] [facility] 04-19-2023 18:15-0400 Body weight 84.18 kg [facility] 10-21-2022 08:34-0400 Body temperature 98.4 [degF] [facility] MICROFICHE CAMERA OPERATOR.SENIOR SALES MANAGER Work Phone: [facility] 10-21-2022 08:34-0400 Body weight 84.55 kg Didier Kilgore MICROFICHE CAMERA OPERATOR.SENIOR SALES MANAGER Work Phone: [facility] 10-21-2022 08:34-0400 Diastolic blood pressure 80 mm[Hg] Didier Kilgore MICROFICHE CAMERA OPERATOR.SENIOR SALES MANAGER Work Phone: [facility] 10-21-2022 08:34-0400 Heart rate 100 /min Didier Kilgore MICROFICHE CAMERA OPERATOR.SENIOR SALES MANAGER Work Phone: [facility] 10-21-2022 08:34-0400 Respiratory rate 21 /min Didier Coronaleenoch MICROFICHE CAMERA OPERATOR.SENIOR SALES MANAGER Work Phone: [facility] 10-21-2022 08:34-0400 SaO2% (BldA) [Mass fraction] 98 % Didier Kilgore MICROFICHE CAMERA OPERATOR.SENIOR SALES MANAGER Work Phone: [facility] 10-21-2022 08:34-0400 Systolic blood pressure 132 mm[Hg] Didier Magui CHRISTIE Work Phone: [facility] 09-21-2022 10:01-0400 Body temperature 99.19 [degF] Iain Athy PA-C Work Phone: [facility] 09-21-2022 10:01-0400 Body weight 84.01 kg Iain Athy PA-C Work Phone: [facility] 09-21-2022 10:01-0400 Diastolic blood pressure 82 mm[Hg] Iain Athy PA-C Work Phone: [facility] 09-21-2022 10:01-0400 Heart rate 72 /min Iain Athy PA-C Work Phone: [facility] 09-21-2022 10:01-0400 Respiratory rate 16 /min Iain Athy PA-C Work Phone: [facility] 09-21-2022 10:01-0400 SaO2% (BldA) [Mass fraction] 97 % Iain Athy PA-C Work Phone: [facility] 09-21-2022 10:01-0400 Systolic blood pressure 128 mm[Hg] Iain Athy PA-C Work Phone: [facility] 04-29-2022 12:04-0400 Body temperature 98.71 [degF] Dora Bogner PA-C Work Phone: [facility] 04-29-2022 12:04-0400 Body weight 76.2 kg Dora Bogner PA-C Work Phone: [facility] 04-29-2022 12:04-0400 Diastolic blood pressure 72 mm[Hg] Dora Bogner PA-C Work Phone: [facility] 04-29-2022 12:04-0400 Heart rate 84 /min Dora Bogner PA-C Work Phone: [facility] 04-29-2022 12:04-0400 Respiratory rate 16 /min Dora Bogner PA-C Work Phone: [facility] 04-29-2022 12:04-0400 SaO2% (BldA) [Mass fraction] 99 % Dora Bogner PA-C Work Phone: [facility] 04-29-2022 12:04-0400 Systolic blood pressure 124 mm[Hg] Dora Bogner PA-C Work Phone: [facility] 02-05-2022 19:12-0400 Body temperature 98.4 [degF] Jj Jhonny MICROFICHE CAMERA OPERATOR.SENIOR SALES MANAGER Work Phone: [facility] 02-05-2022 19:12-0400 Body weight 75.3 kg Jj Jhonny MICROFICHE CAMERA OPERATOR.SENIOR SALES MANAGER Work Phone: [facility] 02-05-2022 19:12-0400 Diastolic blood pressure 86 mm[Hg] Jj Jhonny MICROFICHE CAMERA OPERATOR.SENIOR SALES MANAGER Work Phone: [facility] 02-05-2022 19:12-0400 Heart rate 74 /min Jj Jhonny MICROFICHE CAMERA OPERATOR.SENIOR SALES MANAGER Work Phone: [facility] 02-05-2022 19:12-0400 Respiratory rate 20 /min Jj Jhonny MICROFICHE CAMERA OPERATOR.SENIOR SALES MANAGER Work Phone: [facility] 02-05-2022 19:12-0400 SaO2% (BldA) [Mass fraction] 99 % Jj Jhonny MICROFICHE CAMERA OPERATOR.SENIOR SALES MANAGER Work Phone: [facility] 02-05-2022 19:12-0400 Systolic blood pressure 128 mm[Hg] Jj Jhonny MICROFICHE CAMERA OPERATOR.SENIOR SALES MANAGER Work Phone: [facility] 01-19-2022 16:39-0400 Respiratory rate 18 /min [facility] Work Phone: 01-19-2022 16:27-0400 Body height 175.26 cm [facility] Work Phone: 01-19-2022 16:27-0400 Body mass index (BMI) [Ratio] 25.1 kg/m2 [facility] Work Phone: 01-19-2022 16:27-0400 Body temperature 98.6 [degF] [facility] Work Phone: 01-19-2022 16:27-0400 Body weight 77.11 kg [facility] Work Phone: 01-19-2022 16:27-0400 Diastolic blood pressure 91 mm[Hg] [facility] Work Phone: 01-19-2022 16:27-0400 Heart rate 88 /min [facility] Work Phone: 01-19-2022 16:27-0400 SaO2% (BldA) [Mass fraction] 100 % [facility] Work Phone: 01-19-2022 16:27-0400 Systolic blood pressure 131 mm[Hg] [facility] Work Phone: Encounters Encounter Date Encounter Type Care Provider Facility Start: 05-31-2025 ambulatory Nikita Sorensen Facility :[facility] Start: 04-07-2025 ambulatory Xochilt De Jesus Facility:[facility] Start: 04-07-2025 End: 04-11-2025 Evaluation and management of inpatient Xochilt De Jesus Facility:[facility] Start: 03-31-2025 ambulatory Jo-Ann L White Facility :[facility] Start: 03-31-2025 End: 04-03-2025 Evaluation and management of inpatient Jo-Ann L White Facility:[facility] Start: 02-15-2025 Non-patient / Non-visit Dr. Alise Chau MD -[facility] Work Phone: Start: 02-14-2025 ambulatory Nikita Sorensen Facility :[facility] Start: 02-14-2025 Non-patient / Non-visit Dr. Karo jacobson MD -[facility] Start: 02-14-2025 Non-patient / Non-visit Dr. Alise Chau MD -[facility] Work Phone: Start: 02-13-2025 ambulatory Nikita Sorensen Facility :[facility] Start: 02-13-2025 End: 02-16-2025 Evaluation and management of inpatient Dr. Xochilt De Jesus MD -[facility] Work Phone: Start: 08-04-2024 End: 08-04-2024 Emergency department patient visit Madelyn Crain MD Work Phone: [facility] Comment on above: Depression, unspecif ied depression type (Primary Dx) Start: 08-13-2023 End: 08-13-2023 ambulatory NIKITA SORENSEN Facility:[facility] Start: 08-13-2023 End: 08-13-2023 Patient encounter procedure Naty Nagy MICROFICHE CAMERA OPERATOR.SENIOR SALES MANAGER Work Phone: [facility] Comment on above: Strep throat (Primar y Dx) Start: 07-25-2023 Refill Mare Mariel bateman MICROFICHE CAMERA OPERATOR - SENIOR SALES MANAGER Work Phone: [facility] Start: 06-30-2023 Refill Mare Mariel thal MICROFICHE CAMERA OPERATOR - SENIOR SALES MANAGER Work Phone: [facility] Start: 05-25-2023 Refill Lanny Claudio MICROFICHE CAMERA OPERATOR - SENIOR SALES MANAGER Work Phone: [facility] Start: 05-20-2023 End: 05-20-2023 Subsequent hospital visit by physician Nasrin Jaffe MD Work Phone: [facility] Comment on above: Mass of soft tissue of face (Primary Dx); Other specified soft tissue disorders Start: 05-02-2023 Telephone encounter Mare vargas MICROFICHE CAMERA OPERATOR - SENIOR SALES MANAGER Work Phone: [facility] Comment on above: Results Start: 05-01-2023 End: 05-01-2023 Patient encounter procedure Maredevora Robb MICROFICHE CAMERA OPERATOR - SENIOR SALES MANAGER Work Phone: [facility] Work Phone: Start: 05-01-2023 End: 05-01-2023 Periodic preventive med est patient 18-39 yrs Mare Wingal MICROFICHE CAMERA OPERATOR - SENIOR SALES MANAGER Work Phone: [facility] Comment on above: Annual physical exam (Primary Dx); Need for hepatitis C screening test; Screening for HIV (human immunodeficiency virus); Screening for lipid disorders Start: 04-30-2023 Telephone encounter Nasrin Jaffe MD Work Phone: [facility] Comment on above: Surgery Scheduling ( [facility]) Start: 04-30-2023 End: 04-30-2023 Office outpatient visit 15 minutes Edwina Delaney PA-C Work Phone: [facility] Comment on above: Mass of soft tissue of face (Primary Dx) Start: 04-25-2023 Refill Nikita Sorensen MD Work Phone: [facility] Start: 04-25-2023 Telephone encounter Nikita Angulo MD Work Phone: [facility] Comment on above: Release of Informati on Start: 04-19-2023 End: 04-19-2023 Emergency department patient visit [facility] Work Phone: Start: 10-24-2022 ambulatory [facility] ical Communication Start: 10-24-2022 Patient encounter procedure Malena Singleton Clinical Communication Start: 10-21-2022 End: 10-21-2022 ambulatory NIKITA SORENSEN Facility:[facility] Start: 10-21-2022 End: 10-21-2022 Office outpatient visit 15 minutes Didier Kilgore APRN.CNP Work Phone: [facility] Comment on above: Sore throat (Primary Dx); Viral URI Start: 09-21-2022 End: 09-21-2022 ambulatory NIKITA SORENSEN Facility:[facility] Start: 09-21-2022 End: 09-21-2022 Patient encounter procedure Iain Lobo PA-C Work Phone: [facility] Comment on above: Viral URI (Primary D x) Start: 04-29-2022 End: 04-29-2022 Office outpatient visit 15 minutes Dora Sexton PA-C Work Phone: [facility] Comment on above: Nausea (Primary Dx) Start: 02-05-2022 End: 02-05-2022 Patient encounter procedure Jj Barry MICROFICHE CAMERA OPERATOR.SENIOR SALES MANAGER Work Phone: [facility] Comment on above: Rash (Primary Dx) Start: 01-19-2022 End: 01-19-2022 Emergency department patient visit [facility] Start: 06-07-2021 End: 06-07-2021 Subsequent hospital visit by physician Chetna Coburn MICROFICHE CAMERA OPERATOR - SENIOR SALES MANAGER Work Phone: [facility] Radiology Comment on above: COVID-19 Procedures Date [...] Start: 05-19-2023 Lipid panel Mare Br identhal MICROFICHE CAMERA OPERATOR - SENIOR SALES MANAGER Work Phone: Start: 05-19-2023 Transferase aspartat e amino ast sgot Mare Bridenthal MICROFICHE CAMERA OPERATOR - SENIOR SALES MANAGER Work Phone: Start: 05-19-2023 Lipid 1996 panel - S nan or Plasma Madelyn Crain MD Work Phone: Start: 05-01-2023 Adult depression scr eening assessment Mare Bridenthal MICROFICHE CAMERA OPERATOR - SENIOR SALES MANAGER Work Phone: Start: 10-21-2022 STREP A MOLECULAR (POC) Naty Nagy MICROFICHE CAMERA OPERATOR.SENIOR SALES MANAGER Work Phone: Start: 09-21-2022 STREP A MOLECULAR (POC) Iain Lobo PA-C Work Phone: Start: 04-29-2022 STREP A MOLECULAR (POC) Dora COLON-C Work Phone: Start: 06-07-2021 Radiologic exam chest 2 views Chetna Coburn MICROFICHE CAMERA OPERATOR - SENIOR SALES MANAGER Work Phone: Plan of Treatment Date Care Activity Detail Author Start: 2064 RSV Immunization for Adults (1 - 1-dose 75+ series) RSV Immunization for Adults (1 - 1-dose 75+ series) [facility] Start: 2049 RSV Immunization aged 60 or older (1 - 1-dose 60+ series) RSV Immunization aged 60 or older (1 - 1-dose 60+ series) [facility] Start: 2039 Zoster Vaccines (1 of 2) Zoster Vaccines (1 of 2) [facility] Start: 05-19-2028 Lipid panel Lipid Panel [facility] Start: 02-16-2025 Patient discharge [facility] Start: 02-13-2025 Assessment of risk of venous thromboembolism [facility] Start: 02-13-2025 Inhalation therapy procedure [facility] Start: 02-13-2025 Insertion of catheter into peripheral vein [facility] Start: 02-13-2025 Providing care according to standard [facility] Start: 02-13-2025 Provision of activity privileges [facility] Start: 02-13-2025 [facility] Start: 02-13-2025 Following clinical pathway protocol [facility] Start: 02-13-2025 Admission procedure [facility] Start: 02-13-2025 Verification routine [facility] Start: 02-13-2025 Hospital admission, emergency, from emergency room, medical nature [facility] Start: 02-13-2025 [facility] Start: 02-13-2025 Consultation [facility] Start: 05-03-2024 End: 05-03-2024 Patient encounter procedure 05/03/2024 8:00 AM EST Office Visit [facility] [address] [place] [address] Mare Robb, MICROFICHE CAMERA OPERATOR - SENIOR SALES MANAGER [address] [place] [address] [facility] Start: 05-01-2024 Depression Screening Depression Screening [facility] Start: 04-30-2024 End: 04-30-2024 Patient encounter procedure 04/30/2024 7:00 AM EDT Office Visit [facility] [address] [place] [address] Mare Robb, MICROFICHE CAMERA OPERATOR - SENIOR SALES MANAGER [address] [place] [address] [facility] Start: 02-29-2024 COVID-19 Vaccine (1 - 2024-25 season) COVID-19 Vaccine ( season) [facility] Start: 02-29-2024 Influenza vaccination Influenza Vaccine (#1) [facility] Start: 10-30-2023 Depression Monitoring Depression Monitoring [facility] Start: 07-16-2023 End: 07-16-2023 Patient encounter procedure 07/16/2023 10:30 AM EST Office Visit [facility] Plastic & Reconstructive Surgery [address] [place] [address] [place] [phone] Edwina Delaney PA-C [address] [place] [address] [place] [address] [facility] Start: 07-08-2023 End: 07-08-2023 Admission to same day surgery center 07/08/2023 7:30 AM EST - 07/08/2023 8:30 AM EST Surgery [facility] MA[facility] OR [address] [place] [phone] Nasrin Jaffe MD [address] [facility] [address] [place] [address] [place] [address] EXCISION OF SOFT TISSUE MASS OF THE RIGHT FOREHEAD WITH IMMEDIATE VERSUS COMPLEX CLOSURE [25673 (CPT )] [facility] Comment on above: EXCISION OF SOFT TISSUE MASS OF THE RIGH T FOREHEAD WITH IMMEDIATE VERSUS COMPLEX CLOSURE [95298 (CPT )] Start: 07-08-2023 End: 07-08-2023 Exc b9 les mrgn xcp sk tg f/e/e/n/l/m 1.1-2.0cm EXCISION BENIGN LESION FACE EARS EYELIDS NOSE LIPS MUCOUS MEMBRANES 1.1 TO 2.0 CM Other specified soft tissue disorders 07/08/2023 7:30 AM EST [facility] Operating Room Start: 07-08-2023 End: 07-08-2023 Repair complex f/c/c/m/n/ax/g/h/f 1.1-2.5 cm REPAIR COMPLEX WOUND OF FOREHEAD CHEEK CHIN MOUTH NECK AXILLAE GENITALIA HANDS FEET 1.1 TO 2.5 CM Other specified soft tissue disorders 07/08/2023 7:30 AM EST [facility] Operating Room Start: 07-08-2023 End: 07-08-2023 Repair intermediate f/e/e/n/l&/muc 2.5 cm/< REPAIR INTERMEDIATE WOUNDS OF FACE EARS EYELIDS NOSE LIPS MUCOUS MEMBRANES 2.5 CM OR LESS Other specified soft tissue disorders 07/08/2023 7:30 AM EST [facility] Operating Room Start: 07-08-2023 Subsequent hospital visit by physician 07/08/2023 7:30 AM EST Hospital Encounter [facility] [address] [place] [phone] Nasrin Jaffe MD [address] [facility] [address] [place], [place] [id number] [facility] Start: 06-30-2023 Depression Assessment Depression Assessment [facility] Start: 06-01-2023 End: 05-02-2024 Alanine aminotransferase [Enzymatic activity/volume] in Serum or Plasma ALT Lab Routine Mixed hyperlipidemia Expected: 06/01/2023 (Approximate), Expires: 05/02/2024 [facility] Work Phone: Comment on above: Expected: 06/01/2023 (Approximate), Expi res: 05/02/2024 Start: 06-01-2023 End: 05-02-2024 Aspartate aminotransferase [Enzymatic activity/volume] in Serum or Plasma AST Lab Routine Mixed hyperlipidemia Expected: 06/01/2023 (Approximate), Expires: 05/02/2024 [facility] Comment on above: Expected: 06/01/2023 (Approximate), Expi res: 05/02/2024 Start: 06-01-2023 End: 05-02-2024 Lipid 1996 panel - Serum or Plasma Lipid panel Lab Routine Mixed hyperlipidemia Expected: 06/01/2023 (Approximate), Expires: 05/02/2024 [facility] Comment on above: Expected: 06/01/2023 (Approximate), Expi res: 05/02/2024 Start: 05-30-2023 End: 05-30-2023 Clinical Support 05/30/2023 8:00 AM EST Clinical Support [facility] Family Medicine [address] [place] [address] [place] [address] [facility] Start: 05-28-2023 End: 05-28-2023 Patient encounter procedure 05/28/2023 10:45 AM EST Office Visit [facility] Plastic & Reconstructive Surgery [address] [place] [phone] Edwina Delaney PA-C [address] [place] [address] [address] [place], [place] [id number] [facility] Start: 05-20-2023 End: 05-20-2023 Admission to same day surgery center 05/20/2023 11:00 AM EST - 05/20/2023 12:00 PM EST Surgery [facility] MAIN OR [address] [place] [phone] Nasrin Jaffe MD [address] [place] [address] [address] [place], [place] [phone] EXCISION OF SOFT TISSUE MASS OF THE RIGHT FOREHEAD WITH IMMEDIATE VERSUS COMPLEX CLOSURE [35013 (CPT )] [facility] MA[facility] OR Comment on above: EXCISION OF SOFT TISSUE MASS OF THE RIGH T FOREHEAD WITH IMMEDIATE VERSUS COMPLEX CLOSURE [96801 (CPT )] Start: 05-20-2023 End: 05-20-2023 Anesthesia consultation 05/20/2023 11:00 AM EST Anesthesia Event [facility] MAIN OR [address] [place] [address] Josselyn Dobson, CHRISTO [facility] MAIN OR Start: 05-20-2023 End: 05-20-2023 Exc [...] AM EST [facility] Operating Room Start: 05-20-2023 Subsequent hospital visit by physician 05/20/2023 11:00 AM EST Hospital Encounter [facility] MA[facility] OR [address] [place] [address] Nasrin Jaffe MD [address] [place] [id number] [facility] MA[facility] OR Start: 05-19-2023 End: 05-19-2023 Clinical Support 05/19/2023 7:30 AM EST Clinical Support [facility] [address] [facility] [place] [address] [facility] Start: 05-02-2023 Pneumococcal vaccination Pneumococcal Vaccine (2 of 2 - PCV) [facility] Start: 05-02-2023 Pneumococcal Vaccine: Pediatrics (0 to 5 Years) and At-Risk Patients (6 to 49 Years) (3 of 3 - PCV) Pneumococcal Vaccine: Pediatrics (0 to 5 Years) and At-Risk Patients (6 to 49 Years) (3 of 3 - PCV) [facility] Start: 05-02-2023 Pneumococcal Vaccine: Pediatrics (0 to 5 Years) and At-Risk Patients (6 to 64 Years) (3 - PCV) Pneumococcal Vaccine: Pediatrics (0 to 5 Years) and At-Risk Patients (6 to 64 Years) (3 - PCV) [facility] Start: 05-02-2023 Pneumococcal Vaccine: Pediatrics (0 to 5 Years) and At-Risk Patients (6 to 64 Years) (3 of 3 - PCV) Pneumococcal Vaccine: Pediatrics (0 to 5 Years) and At-Risk Patients (6 to 64 Years) (3 of 3 - PCV) [facility] Start: 05-01-2023 End: 05-01-2024 Comprehensive metabolic 1998 panel - Serum or Plasma Comprehensive metabolic panel Lab Routine Annual physical exam Expected: 05/01/2023 (Approximate), Expires: 05/01/2024 [facility] Comment on above: Expected: 05/01/2023 (Approximate), Expi res: 05/01/2024 Start: 05-01-2023 End: 05-01-2024 Hepatitis C virus Ab [Presence] in Serum or Plasma by Immunoassay Hepatitis C antibody Lab Routine Need for hepatitis C screening test Expected: 05/01/2023 (Approximate), Expires: 05/01/2024 [facility] Comment on above: Expected: 05/01/2023 (Approximate), Expi res: 05/01/2024 Start: 05-01-2023 End: 05-01-2024 HIV 1+2 Ab+HIV1 p24 Ag [Presence] in Serum or Plasma by Immunoassay HIV-1 and HIV-2 Antigen-Antibody Screen Lab Routine Screening for HIV (human immunodeficiency virus) Expected: 05/01/2023 (Approximate), Expires: 05/01/2024 [facility] Comment on above: Expected: 05/01/2023 (Approximate), Expi res: 05/01/2024 Start: 05-01-2023 End: 05-01-2024 Lipid 1996 panel - Serum or Plasma Lipid panel Lab Routine Annual physical exam Screening for lipid disorders Expected: 05/01/2023 (Approximate), Expires: 05/01/2024 [facility] Work Phone: Comment on above: Expected: 05/01/2023 (Approximate), Expi res: 05/01/2024 Start: 05-01-2023 End: 05-01-2023 Patient encounter procedure 05/01/2023 9:20 AM EDT Office Visit [facility] Medicine [address] [place] [address] [place] [address] Mare Robb APRN - DAT [address] [place] [address] [place] [address] [facility] Start: 04-30-2023 End: 04-30-2023 Patient encounter procedure 04/30/2023 1:30 PM EDT Office Visit [facility] Plastic & Reconstructive Surgery [address] [place] [address] [place] [phone] Edwina Delaney PA-C [address] [place] [address] [place] [address] [facility] Start: 04-19-2023 [facility] Start: 02-28-2023 Influenza vaccination [facility] Start: 10-25-2022 End: 10-25-2022 Patient encounter procedure 10/25/2022 Office Visit Family Medicine Mare Robb, KEYONA - SENIOR SALES MANAGER [address] [place] [address] [facility] Start: 06-30-2022 DEPRESSION ASSESSMENT DEPRESSION ASSESSMENT [facility] Start: 05-20-2022 Meningococcal (ACWY) vaccine (3 - Risk start 2-23 months series) [facility] Start: 02-28-2022 Influenza vaccination INFLUENZA (#1) [facility] Start: 06-30-2021 DEPRESSION ASSESSMENT DEPRESSION ASSESSMENT [facility] Start: 02-28-2021 Influenza vaccination Flu vaccine (#1) [facility] Start: 05-20-2018 Pneumococcal 0-64 years Vaccine (3 of 4 - PCV13) Pneumococcal 0-64 years Vaccine (3 of 4 - PCV13) [facility] Start: 07-15-2017 Hepatitis B Vaccine (3 of 3 - 3-dose series) Hepatitis B Vaccine (3 of 3 - 3-dose series) [facility] Start: 07-15-2017 Hepatitis B Vaccines (3 of 3 - 3-dose series) Hepatitis B Vaccines (3 of 3 - 3-dose series) [facility] Start: 07-15-2017 Hepatitis B Vaccines (4 of 4 - 4-dose series) Hepatitis B Vaccines (4 of 4 - 4-dose series) [facility] Start: 07-15-2017 Meningococcal Vaccine (2 - Risk 2-dose series) Meningococcal Vaccine (2 - Risk 2-dose series) [facility] Start: 2008 Urine microalbumin profile DTAP,TDAP,TD (1 - Tdap) [facility] Start: 2008 Zoster Vaccines (1 of 2) Zoster Vaccines (1 of 2) [facility] Start: 2007 HEPATITIS C SCREENING HEPATITIS C SCREENING [facility] Start: 2007 Hepatitis C screening Hepatitis C Screening [facility] Start: 2007 HIV SCREENING HIV SCREENING [facility] Start: 2007 HIV screening HIV Screening [facility] Start: 2004 HIV screening HIV screen [facility] Start: 2002 Varicella vaccination Varicella Vaccines (1 of 2 - 13+ 2-dose series) [facility] Start: 03-17-2002 Varicella vaccination Varicella Vaccines (1 of 2 - 2-dose childhood series) [facility] Start: 2001 Adult depression screening assessment DEPRESSION SCREENING [facility] Start: 2001 COVID-19 Vaccine (1) COVID-19 Vaccine (1) [facility] Start: 2000 DTaP/Tdap/Td vaccine (6 - Tdap) DTaP/Tdap/Td vaccine (6 - Tdap) [facility] Start: 2000 DTaP/Tdap/Td Vaccines (6 - Tdap) DTaP/Tdap/Td Vaccines (6 - Tdap) [facility] Start: 2000 Urine microalbumin profile DTaP,Tdap,Td Vaccine (6 - Tdap) [facility] Start: 1999 Meningococcal B vaccine (1 of 4 - Increased Risk Bexsero 2-dose series) Meningococcal B vaccine (1 of 4 - Increased Risk Bexsero 2-dose series) [facility] Start: 1999 Meningococcal B Vaccine (1 of 4 - Increased Risk) Meningococcal B Vaccine (1 of 4 - Increased Risk) [facility] Start: 1995 PNEUMOCOCCAL (1 - PCV) PNEUMOCOCCAL (1 - PCV) [facility] Start: 09-11-1990 Hib vaccine (1 of 1 - Risk 1-dose series) Hib vaccine (1 of 1 - Risk 1-dose series) [facility] Start: 09-11-1990 HIB Vaccines (1 of 1 - Risk 1-dose series) HIB Vaccines (1 of 1 - Risk 1-dose series) [facility] Start: 1989 COVID-19 VACCINE (#1) COVID-19 VACCINE (#1) [facility] Start: 1989 HEPATITIS B (1 of 3 - 3-dose series) HEPATITIS B (1 of 3 - 3-dose series) [facility] Start: 1989 Hepatitis C screening Hepatitis C screen [facility] Start: 1989 HIV screening HIV Screening [facility] Patient Education [facility] Work Phone: Patient referral [facility] Work Phone: Tissue exam [facility] Work Phone: Comment on above: Release Upon Ordering for 1 Occurrences starting 05/20/2023 Immunizations Immunization Date Immunization Notes Care Provider Fa segundo 05-02-2022 pneumococcal polysaccharide vaccine, 23 valent Malena Polanco RN [facility] 04-12-2019 influenza, injectabl e, quadrivalent, preservative free [facility] Work Phone: [facility] Work Phone: 04-12-2019 influenza virus vacc ine, unspecified formulation Malena Polanco RN [facility] 05-20-2017 hepatitis B vaccine, adult dosage [facility]IOR SALES MANAGER Work Phone: [facility] Work Phone: 05-20-2017 influenza virus vacc ine, unspecified formulation [facility] Work Phone: [facility] Work Phone: 05-20-2017 influenza, injectabl e, quadrivalent, contains preservative Malena Polanco RN [facility] 05-20-2017 Influenza, Quadv, 6 mo and older, IM (Fluzone, Flulaval) [facility] - SENIOR SALES MANAGER Work Phone: [facility] 05-20-2017 meningococcal oligosaccharide (groups A, C, Y and W-135) diphtheria toxoid conjugate vaccine (MCV4O) [facility] - SENIOR SALES MANAGER Work Phone: [facility] Work Phone: 05-20-2017 pneumococcal polysaccharide vaccine, 23 valent [facility] - SENIOR SALES MANAGER Work Phone: [facility] Work Phone: 05-20-2017 meningococcal vaccin e of unknown formulation and unknown serogroups Chetna Coburn [facility] Work Phone: [facility] Work Phone: 05-20-2016 hepatitis B vaccine, unspecified formulation [facility]erald [facility] Work Phone: [facility] Work Phone: 05-20-2016 meningococcal polysaccharide (groups A, C, Y and W-135) diphtheria toxoid conjugate vaccine (MCV4P) [facility] Work Phone: [facility] Work Phone: 05-20-2016 pneumococcal polysaccharide vaccine, 23 valent [facility] Work Phone: [facility] 05-31-2015 meningococcal polysaccharide (groups A, C, Y and W-135) diphtheria toxoid conjugate vaccine (MCV4P) [facility] Work Phone: [facility] Work Phone: 05-31-2015 pneumococcal polysaccharide vaccine, 23 valent [facility] Work Phone: [facility] Work Phone: 05-28-2015 influenza, injectabl e, quadrivalent, preservative free [facility] Work Phone: [facility] Work Phone: 02-17-2002 measles, mumps and rubella virus vaccine [facility] Work Phone: [facility] Work Phone: 02-18-1995 diphtheria, tetanus toxoids and acellular pertussis vaccine, unspecified formulation [facility] Work Phone: [facility] Work Phone: 02-18-1995 trivalent poliovirus vaccine, live, oral [facility] Work Phone: [facility] Work Phone: 12-21-1990 diphtheria, tetanus toxoids and pertussis vaccine Chetna Coburn APRN - SENIOR SALES MANAGER Work Phone: [facility] Work Phone: 12-21-1990 measles, mumps and rubella virus vaccine Chetna Coburn APRN - SENIOR SALES MANAGER Work Phone: [facility] Work Phone: 12-21-1990 trivalent poliovirus vaccine, live, oral Chetna Coburn APRN - SENIOR SALES MANAGER Work Phone: [facility] Work Phone: 07-09-1990 haemophilus influenz ae type b vaccine, conjugate unspecified formulation Chetna Coburn APRN [facility] Work Phone: [facility] Work Phone: 07-09-1990 hepatitis B vaccine, pediatric or pediatric/adolescent dosage Chetna Coburn APRN - [facility] Work Phone: [facility] Work Phone: 03-03-1990 diphtheria, tetanus toxoids and pertussis vaccine Chetna Coburn APRN - SENIOR SALES MANAGER Work Phone: [facility] Work Phone: 1989 diphtheria, tetanus toxoids and pertussis vaccine Chetna Coburn [employer] OPERATOR - SENIOR SALES MANAGER Work Phone: [facility] Work Phone: 1989 trivalent poliovirus vaccine, live, oral Chetna Coburn APRN - SENIOR SALES MANAGER Work Phone: [facility] Work Phone: 1989 diphtheria, tetanus toxoids and pertussis vaccine Chetna Coburn [employer] OPERATOR - SENIOR SALES MANAGER Work Phone: [facility] Work Phone: 1989 trivalent poliovirus vaccine, live, oral Chetna Coburn APRN - SENIOR SALES MANAGER Work Phone: [facility] Work Phone: Payers Date Payer Category Payer Self-pay [id number] 2023 Commercial Managed C are - HMO [employer] [id number] 2023 Unknown [id number] 2023 Unknown [id number] 2022 Medicaid [id number] 2020 Medicaid [id number] 2018 Unknown [employer] [id number] 2018-Present [phone] [address] [place] [address] [id number] Unknown [id number] Unknown [id number] Unknown [id number] [id number]. 462 Unknown [id number] 2.16.840.1.317351.3.579.2. 462 Unknown [id number] 2.16.840.1.541579.3.579.2. 462 Unknown [id number] 2.16.840.1.901765.3.579.2. 462 Unknown [id number] 2.16.840.1.446463.3.579.2. 462 Unknown [id number] 2.16.840.1.296488.3.579.2. 462 Unknown [id number] 2.16.840.1.270487.3.579.2. 462 Unknown [id number] 2.16.840.1.023285.3.579.2. 462 Unknown [id number] 2.16.840.1.850423.3.579.2. 462 Unknown [id number] 2.16.840.1.183781.3.579.2. 462 Unknown [id number] 2.16.840.1.314545.3.579.2. 462 Unknown [id number] 2.16.840.1.839515.3.579.2. 462 Unknown [id number] 2.16.840.1.801221.3.579.2. 462 Unknown [id number] 2.16.840.1.464549.3.579.2. 462 Unknown [id number] 2.16.840.1.894731.3.579.2. 462 Unknown [id number] 2.16.840.1.061641.3.579.2. 462 Unknown [id number] 2.16.840.1.442713.3.579.2. 462 Unknown [id number] 2.16.840.1.876133.3.579.2. 462 Social History Date Type Detail Facility Start: 06-05-2015 End: 02-13-2025 Tobacco smoking status [facility] Ex-smoker [employer] Phone: End: 05-19-2015 History of tobacco use Current smoker [employer] Phone: Start: 06-05-2015 End: 05-02-2022 Tobacco use and exposure Smokeless tobacco non-user [employer] Phone: Start: 10-18-2019 End: 04-30-2023 Alcohol intake Current non-drinker of alcohol (finding) [employer] Work Phone: Start: 10-18-2019 End: 05-01-2023 [facility] Work Phone: Start: 1990 Sex Assigned At Not on file [facility] [employer] Phone: Start: 01-19-2022 End: 04-19-2023 Tobacco smoking status NHIS Unknown if ever smoked [facility] Start: 06-18-2021 Occasional [employer] [facility] Start: 06-18-2021 None [employer] [facility] Start: 06-18-2021 Cigarettes [employer] [facility] Start: 1990 Sex Assigned At Male S [facility] Start: 01-29-2012 Tobacco smoking stat us PAIS Smokes tobacco daily [facility] Start: 02-05-2022 End: 08-13-2023 Alcohol intake Not Asked [facility] End: 05-19-2015 History of tobacco use Cigarette Smoker [facility] Start: 06-18-2022 End: 05-01-2023 Tobacco use panel [facility] Start: 05-01-2022 Gender identity Identifies as male gender (finding) [facility] Start: 05-01-2022 Sexual orientation Heterosexual (fin ding) [facility] Start: 05-01-2023 End: 08-04-2024 Alcohol intake Ex-drinker (finding) [facility] How often to you hav e a drink containing alcohol? Never [facility] How many standard drinks containing alcohol do you have on a typical day? Patient does not drink [facility] (I/We) worried wheth er (my/our) food would run out before (I/we) got money to buy more. Never true [facility] In the past 12 month s, was there a time when you were not able to pay the mortgage or rent on time? No [facility] Start: 05-01-2023 Alcohol Comment Use to drink [facility] How often to you hav e a drink containing alcohol? 4 or more times a week [facility] How many standard drinks containing alcohol do you have on a typical day? 1 or 2 [facility] Start: 01-28-2022 Sex Male (finding) Areli Chau [facility]th Goals Date Patient Goal Desired Activity /State Functional Status Date Assessment Result Facility 02-16-2025 Functional status Ambulates;Up ad ludy [facility] Work Phone: Mental Status Date Assessment Result Facility 02-15-2025 Cognitive function Voice/Name [facility] Work Phone: Clinical Notes 02-05-2022 to 04-11-2025 Note Date & Type Note Facility 04-11-2025 Note [facility] Medical Records Department [address] [place] [address] Discharge Summary 04/11/25 1407 MR#: [id number] Acct: [id number] Name: ANNAMARIE LARIOS Rep #: [id number] : 1990 34 From: Kenneth Peter MD PCP: Dr. Nikita Sorensen MD Status:DIS IN Location: [place] [address] Providers Date of Admission: 04/07/25 Primary Care Physician: Dr. Nikita Sorensen MD Reason For Visit: ALCOHOL DETOX Diagnosis Discharge Diagnosis (1) Alcohol withdrawal: Status: Resolved Code(s): F10.939 - Alcohol use, unspecified with withdrawal, unspecified (2) Subconjunctival hemorrhage of right eye: Status: Inactive Code(s): H11.31 - Conjunctival hemorrhage, right eye Medications at Discharge Home Medications olanzapine 20 mg tablet 20 mg PO QHS 02/13/25 metoprolol tartrate 25 mg tablet 12.5 mg (1/2 x 25 mg) PO BID #30 tabs 02/16/25 Hospital Course Operations None Procedures None Summary of Care Provided Minutes Spent on Discharge: 31 Hospital Course: Per HPI: ANNAMARIE LARIOS, is a 34 M with a history of depression, chewing tobacco use, and alcohol use disorder who presented to [facility] ED 04/07/2025 with family for admission for detox and possible placement. He was admitted 02/13/2025 and subsequently discharged and then Re- presented 03/31/2025 for alcohol detox and was discharged 04/03/2025 however went home and was drinking again. Per report [employer] advised family take him to the ED for admission and they can evaluate for possible inpatient options. Hospitalist contacted for admission. In the ED heart rate 97 with a blood pressure of 144/103, respiratory rate 16 and temp 98.2, pulse ox 95% on room air. White count 10.6 with a hemoglobin of 16.9, platelet count 554, BUN 10 with a creatinine 1.06. AST 104, ALT 153. He reported his last drink was last night however alcohol level 293. On my evaluation patient reports feeling a little bit shaky but ROS otherwise negative, of note he has received phenobarb. Reported to me as well that last drink was last night and said he is only been drinking 1 or 2 white claw since he was discharged however family member at bedside doubts that and it does seem unlikely given alcohol level of 293 and his timeline. Agreeable to admission Hospital Course: 1. Alcohol withdrawal/anxiety/depression/tobacco abuse???34-year-old male presented to the hospital with recurrent alcohol intoxication requesting detox. He tolerated the alcohol withdrawal protocol and he met with 180 and agreed for inpatient rehab on discharge. He also received Vivitrol infusion today prior to discharge and was discharged to inpatient rehab. CIWA score today prior to discharge was 1. I did discuss with him the plan for discharge today and he expressed understanding of the risks and benefits of going to rehab and would like to go today. Physical Exam Narrative General: Alert, Oriented x3, Cooperative, No apparent distress HEENT: Atraumatic, PERRLA, EOMI, Normocephalic Oral: Moist Mucosa Neck: Supple, No JVD Lungs: Clear to auscultation, Normal air movement, No rhonchi, No wheeze, No rales Cardiovascular: Regular rate, Regular Rhythm, Normal S1, Normal S2, No murmurs Abdomen: Soft, Non Tender, Non-Distended, No Hepato-splenomegaly Extremities: No edema, Capillary Refill Less than 3 Seconds Skin: No rashes, No breakdown Musculoskeletal: No Tenderness to Palpation of Joints or Extremities Neurological: No focal neurological deficits, Motor Exam 5/5 strength throughout, Sensory exam intact to light touch and pain Psych/Mental Status: Normal Affect, Appropriate Weight / BMI Weight Weight: 203 lb 9 oz Body Mass Index (BMI) 30.0 ABG / Lab / Microbiology Data 04/08/25 04:38 04/08/25 04:38 D/C Instructions Call your doctor if you observe: Fever of 101 or Higher, Shortness of breath, Dizziness, Fainting spells, Swelling in the ankles, Chest pain and Increased palpitations (irregular heartbeat) DC O2, CPAP, BIPAP Needs Home O2 Discharge instructions: No Meaningful Use Info Meaningful Use Meaningful Use Diagnoses (Choose all that apply): None applicable Discharge Plan Admission Admit Date/Time: 04/07/25 16:30 Attending Provider: Kenneth Peter Primary Care Provider: Nikita Sorensen Consulting Providers: Xochilt De Jesus Discharge Orders/Prescriptions Prescriptions: Continued olanzapine 20 mg tablet 20 mg PO QHS metoprolol tartrate 25 mg Tablet 12.5 mg PO BID Qty: 30 2RF Referrals / Follow Up: Nikita Soernsen MD [Primary Care Provider, [facility]] Disposition Disposition (needs filled in before D/C Order can be placed): Home, Self Care Charges/Coding Visit Charges Inpatient E M: 25401 Disch Hosp >30min 04/11/25 1409 Cosigner Signature (if applicable): CC: Dr. Shelton (more content not included)... [facility] 04-03-2025 Note [facility] Medical Records Department [address] [place] [address] Discharge Summary 04/03/25 0745 MR#: [id number] Acct: [id number] Name: ANNAMARIE LARIOS Rep #: [id number] : 1990 34 From: Ulysses Hernandez MD PCP: Dr. Nikita Sorensen MD Status:ADM IN [facility] Prov[facility] Date of Admission: 03/31/25 Primary Care Physician: Dr. Nikita Sorensen MD Reason For Visit: ETOH WITHDRAWL Diagnosis Discharge Diagnosis (1) Desire for detoxification: Status: Acute Plan 34-year-old gentleman with history of chronic alcohol dependence presented to the emergency department with desire to undergo detox 1. Chronic alcohol abuse at risk for alcohol withdrawal - Patient has been admitted for treatment with phenobarb taper in addition to adjuvant medications including gabapentin, Bentyl, hydroxyzine and clonidine as needed for alcohol withdrawal symptoms. Patient was also placed on thiamine and folic acid Consultation placed to 180 counseling services ??? 04/02/2025;Patient seen complains of some anxiety otherwise has tolerated phenobarb taper well so far.. Will continue with current treatment regimen and observe for 1 more night ??? 04/03/2025; patient assessed to be stable for discharge 2. Depression with anxiety Pain is on olanzapine 3. Tobacco dependence ??? Counseled on cessation, offered nicotine patch for tobacco cravings 4. Hypertension ??? Blood pressure controlled, home medications continued with dose adjustment as needed 5. Thrombocytosis ??? Patient platelet count has fluctuated in the past we will continue with monitoring 6. DVT prophylaxis ??? Low risk encourage ambulation Time spent in the patient's overall evaluation,decision-making process, review of diagnostic data, adjustment of management, discussion with other providers, nursing nursing and ancillary staff involved in patient's care documentation, 35 Minutes Medications at Discharge Home Medications olanzapine 20 mg tablet 20 mg PO QHS 02/13/25 metoprolol tartrate 25 mg tablet 12.5 mg (1/2 x 25 mg) PO BID #30 tabs 02/16/25 Physical Exam Narrative GENERAL: cooperative HEENT: Atraumatic; normocephalic EYES; Anicteric, Normal Conjunctiva NECK; supple, normal thyroid, RESPIRATORY: Diminished to auscultation CARDIOVASCULAR: Regular S1 S2, GI: soft, normoactive bowel sounds, : No Renal angle tenderness; EXTREMITIES: No edema, no clubbing, MUSCULOSKELETAL: no muscle wasting NEURO: Awake; no lateralizing signs. SKIN: No Rash PSYCH; Flat affect Weight / BMI Weight Weight: 90.718 kg Body Mass Index (BMI) 29.5 ABG / Lab / Microbiology Data 03/31/25 21:13 03/31/25 21:13 D/C Instructions Discharge Activity: Return to Normal Activity Call your doctor if you observe: Fever of 101 or Higher, Shortness of breath, Fainting spells and Chest pain DC O2, CPAP, BIPAP Needs Home O2 Discharge instructions: No Meaningful Use Info Meaningful Use Meaningful Use Diagnoses (Choose all that apply): None applicable Discharge Plan Admission Admit Date/Time: 03/31/25 21:20 Attending Provider: Ulysses Hernandez Primary Care Provider: Nikita Sorensen Consulting Providers: Jo-Ann Reynolds Discharge Orders/Prescriptions Prescriptions: Continued olanzapine 20 mg tablet 20 mg PO QHS metoprolol tartrate 25 mg Tablet 12.5 mg PO BID Qty: 30 2RF Referrals / Follow Up: Nikita Sorensen MD [Primary Care Provider, Family Practice] - Within 1 Week Disposition Disposition (needs filled in before D/C Order can be placed): Home, Self Care Charges/Coding Visit Charges Inpatient E M: 27420 Disch Hosp >30min 04/03/25 0856 Cosigner Signature (if applicable): CC: Dr. Nikita Sorensen MD; Dr. Ulysses Hernandez MD Signed [facility] 02-16-2025 Discharge summary Note Date/Time February 16, 2025 12:15pm [facility] Medical Records Department [address] [place] [address] Instructions for Home/Discharge Instructions 02/16/25 1059 MR#: [id number] Acct: [id number] Name: ANNAMARIE LARIOS Rep #:[id number] : 1990 34 From: Angela Chau [...] Dr. Xochilt De Jesus MD ~ Signed [facility] Work Phone: 1(963) 860-566408-20-2025 Discharge summary [facility] Medical Records Department [address] [place] [address] Instructions for Home/Discharge Instructions 02/16/25 1059 MR#: [id number] Acct: [id number] Name: ANNAMARIE LARIOS Rep #:[id number] : 1990 34 From: Angela Chau [...] Dr. Xochilt De Jesus MD ~ Signed [facility]08-20-2025 [facility] Medical Records Department [address] [place] [address] Discharge Summary 02/16/25 1059 MR#: [id number] Acct: [id number] Name: ANNAMARIE LARIOS Rep #: [id number] : 1990 34 From: Angela Chau MD PCP: Dr. Nikita Sorensen MD Status:DIS IN Location: [facility] FU896-4 Providers Date of Admission: 02/13/25 Date of [...] TSH and 2D echo * check D fvfah-N-qfrtl was elevated at over 2. CTA of [...] atraumatic, hearing grossly normal (more content not included)...[facility]08-19-2025 Progress note Author Angela Chau [facility] Note Date/Time February 15, 2025 3: 31pm [facility] Medical Records Department [address] [place] [address] Progress Note 02/15/25 1205 MR#: [id number] Acct: [id number] Name: ANNAMARIE LARIOS Rep #:[id number] : 1990 34 From: Angela Chau MD PCP: Dr. Nikita Sorensen MD Status:ADM IN [facility] Subjective Subjective Patient seen and examined with [...] 1999 / 2300 580 / 580 Balance 19990 580 / 580 Lab / Micro Data [...] 2. Prominent diffuse hepatic steatosis. Reading Location: [facility] Physical Exam Const alert, oriented x3 [...] TSH and 2D echo * check D mazev-G-qcipk was elevated at over 2. CTA of [...] dc tomorrow. Charges/Coding Visit Charges Inpatient E&M: 86780 Subs Hosp L2 02/15/25 1531 <Electronically signed by Angela Chau MD> Angela Chau MD Cosigner Signature (if applicable): CC: ~ Signed [facility] Work Phone: 1(513) 125-614108-19-2025 Progress note [facility] Medical Records Department [address] [place] [address] Progress Note 02/15/25 1205 MR#: [id number] Acct: [id number] Name: ANNAMARIE LARIOS Rep #:[id number] : 1990 34 From: Angela Chau MD PCP: Dr. Nikita Sorensen MD Status:ADM IN Location: [facility] RO566-2 Subjective Subjective Patient seen and examined with [...] Physician: Angela Chau Performed By: Brad Felix, [facility] Chest CTA 02/14/25 15:18 IMPRESSION: 1. No acute intrathoracic pathology. No pulmonary arterial emboli. 2. Prominent diffuse hepatic steatosis. Reading Location: [facility] Physical Exam Const alert, oriented x3 [...] TSH and 2D echo * check D hcgtr-E-lszrd was elevated at over 2. CTA of [...] dc tomorrow. Charges/Coding Visit Charges Inpatient E&M: 70383 Subs Hosp L2 02/15/25 1533 Angela Chau MD Cosigner Signature (if applicable): CC: ~ Signed [facility]08-18-2025 Progress note Author Angela Chau [facility] Note Date/Time February 14, 2025 4: 42pm [facility] Medical Records Department [address] [place] [address] Progress Note 02/14/25 1128 MR#: [id number] Acct: [id number] Name: ANNAMARIE LARIOS Rep #:[id number] : 1990 34 From: Angela Chau MD PCP: Dr. Nikita Sorensen MD Status:ADM IN Location: [facility] FT813-8 Subjective Subjective Patient seen and examined. He [...] % (Auto) 66.7, Lymph % (Auto) 22.1, [place] % (Auto) 9.5, Eos % (Auto) 0.1, [...] % (Auto) 65.2, Lymph % (Auto) 22.1, [place] % (Auto) 9.2, Eos % (Auto) 2.1, [...] TSH and 2D echo * check D binmk-L-djwby was elevated at over 2. CTA of [...] encourage ambulation Charges/Coding Visit Charges Inpatient E&M: 26810 Subs Hosp L2 02/14/25 1642 <Electronically signed by Angela Chau MD> Angela Chau MD Cosigner Signature (if applicable): CC: ~ Signed [facility] Work Phone: 1(583) 556-371008-18-2025 Progress note [facility] Medical Records Department [address] [place] [address] Progress Note 02/14/25 1128 MR#: [id number] Acct: [id number] Name: ANNAMARIE LARIOS Rep #:[id number] : 1990 34 From: Angela Chau MD PCP: Dr. Nikita Sorensen MD Status:ADM IN [facility] Subjective Subjective Patient seen and examined. He [...] Intake Total 19990 580 / 580 Balance 19990 580 / 580 Lab / Micro Data 02/14/25 04:57 02/14/25 04:57 Labs: Laboratory Results - last 24 hr 02/13/25 15:17: WBC 12.5 H, RBC 5.53, Hgb 16.2, Hct 46.6, MCV 84.3, MCH 29.3, MCHC 34.8, RDW Std Deviation 46.5 H, RDW Coeff of Rhianna 15.1 H, Plt Count 354, MPV10.1, Immature Gran % (Auto) 0.400, Neut % (Auto) 66.7, Lymph % (Auto) 22.1, [place] % (Auto) 9.5, Eos % (Auto) 0.1, [...] % (Auto) 65.2, Lymph % (Auto) 22.1, [place] % (Auto) 9.2, Eos % (Auto) 2.1, [...] TSH and 2D echo * check D jujiz-D-klrue was elevated at over 2. CTA of [...] encourage ambulation Charges/Coding Visit Charges Inpatient E&M: 40461 Subs Hosp L2 02/14/25 1642 Angela Chau MD Cosigner Signature (if applicable): CC: ~ Signed [facility]08-18-2025 Radiology Diagnostic study note [facility] Imaging Services [address] [place], [place] [address] CTA Chest W/WO Contrast MR#: [id number] Acct: [id number] Name: ANNAMARIE LARIOS Rep #: [id number] : 1990 M 34 From: Dillan Barrett MD PCP: Dr. Nikita Sorensen MD Status: ADM IN Study:CTA Chest W/WO Contrast Date of Exam: 02/14/25 Exam# [id number] Ordering Dr: Alise Chau MD PROCEDURE: CTA [...] 2. Prominent diffuse hepatic steatosis. Reading Location: [facility] CC: Dr. Nikita Sorensen MD; Dr. Angela Chau MD ~ Police Inspector: Signed [facility]08-18-2025 Discharge summary Author Deep Holman [facility] Note Date/Time February 13, 2025 11 :45pm [facility] Medical Records Department [address] [place] [address] Emergency Department Summary 02/13/25 MR#: [id number] Acct: [id number] Name: ANNAMARIE LARIOS Rep #:[id number] : 1990 34 From: Deep Weiss PCP: Dr. Nikita Sorensen MD Status:ADM IN Location: [place] [address] HPI History of Present Illness Chief Complaint: [...] worse. Patient does not take any anticoagulants. [facility] Medical History (Updated 02/13/25 @ 18:21 by [...] @ 15:[address] Deep Holman, ) Hx of tympanostomy tubes History of adenectomy [...] Management Discussion w/another healthcare provider: Hospitalist and precision optical goods worker/Case management Treatment and Re-Evaluation Narrative: Patient was evaluated by medical social consultant. Patient is not having any suicidal homicidal [...] MD [Primary Care Provider] - Print Language: Belarusian Disposition Disposition: Acute Care Hospital [facility] What to do if you have Problems For any increased pain, shortness of breath, bleeding, nausea or vomiting, chestpain, or any unexpected problems, contact your Primary Care Provider. Call [facility] ([phone]) or report to the closest Emergency Room. Call 911 if necessary. 02/13/25 3745 <Electronically signed by Deep Holman DO> Cosigner Signature (if applicable): CC: Dr. Nikita Sorensen MD ~ Signed [facility] Work Phone: 1(994) 768-412308-17-2025 Discharge summary [facility] Medical Records Department [address] [place] [address] Emergency Department Summary 02/13/25 MR#: [id number] Acct: [id number] Name: ANNAMARIE LARIOS Rep #:[id number] : 1990 34 From: Deep Weiss PCP: Dr. Nikita Sorensen MD Status:ADM IN Location: [facility] KR502-9 HPI History of Present Illness Chief Complaint: [...] worse. Patient does not take any anticoagulants. [facility] Medical History (Updated 02/13/25 @ 18:[address] Deep Holman DO) Depression Anxiety COVID-19 Home Medications ?Medication [...] Management Discussion w/another healthcare provider: Hospitalist and precision optical goods worker/Case management Treatment and Re-Evaluation Narrative: Patient was evaluated by medical social consultant. Patient is not having any suicidal homicidal [...] MD [Primary Care Provider] - Print Language: Belarusian Disposition Disposition: Acute Care Hospital [facility] What to do if you have Problems For any increased pain, shortness of breath, bleeding, nausea or vomiting, chestpain, or any unexpected problems, contact your Primary Care Provider. Call [facility] ([phone]) or report tothe closest Emergency Room. Call 911 if necessary. 02/13/25 7720 Cosigner Signature (if applicable): CC: Dr. Nikita Sorensen MD ~ Signed [facility]08-17-2025 History and physical note Author Xochilt De Jesus [facility] Note Date/Time February 13, 2025 7: 16pm [facility] Medical Records Department [address] [place] [address] H&P Exam - Hospitalist 02/13/25 1848 MR#: [id number] Acct: [id number] Name: ANNAMARIE LARIOS Rep #:[id number] : 1990 34 From: Xochilt De Jesus MD PCP: Dr. Nikita Sorensen MD Status:ADM IN Location: [facility] DF464-1 HPI - General General Date of Admission: 02/13/25 Date of Service: 02/13/25 Chief Complaint: Right eye redness and alcohol use HPI Narrative ANNAMARIE LARIOS, is a 34 M with a history of depression, chewing tobacco use, remote history of alcohol use presented [facility] ED 02/13/2025 initially reporting some redness on [...] so he just does nottake them out. [facility] Medical History (Updated 02/13/25 @ 18:21 [...] % (Auto) 66.7, Lymph % (Auto) 22.1, [place] % (Auto) 9.5, Eos % (Auto) 0.1, [...] 56 Minutes Charges/Coding Visit Charges Inpatient E&M: 24833 Init Hosp L2 02/13/256 <Electronically signed by Xochilt De Jesus MD> Cosigner Signature (if applicable): CC: Dr. Nikita Sorensen MD; Dr. Xochilt De Jesus MD~ Signed [facility] Work Phone: 1(368) 371-254708-17-2025 Evaluation note* Diagnosis Onset Date Resolution Status Admit Date Alcohol withdrawal acute February 13, 2025 6:49pm Subconjunctival hemorrhage o f right eye acute February 13 6:49pm [facility] Work Phone: 1(444) 643-889208-17-2025 History and physical note [facility] Medical Records Department [address] [place] [address] H&P Exam - Hospitalist 02/13/25 1848 MR#: [id number] Acct: [id number] Name: ANNAMARIE LARIOS Rep #:[id number] : 1990 34 From: Xochilt De Jesus MD PCP: Dr. Nikita Sorensen MD Status:ADM IN Location: [place] [address] HPI - General General Date of Admission: 02/13/25 Date of Service: 02/13/25 Chief Complaint: Right eye redness and alcohol use HPI Narrative ANNAMARIE LARIOS, is a 34 M with a history of depression, chewing tobacco use, remote history of alcohol use presented [facility] ED 02/13/2025 initially reporting some redness on [...] so he just does nottake them out. [facility] Medical History (Updated 02/13/25 @ 18:21 [...] % (Auto) 66.7, Lymph % (Auto) 22.1, [place] % (Auto) 9.5, Eos % (Auto) 0.1, [...] 56 Minutes Charges/Coding Visit Charges Inpatient E&M: 96994 Init Hosp L2 02/13/251915 Cosigner Signature (if applicable): CC: Dr. Nikita Sorensen MD; Dr. Xochilt De Jesus MD~ Signed [facility]02-05-2025 Emergency department Note* Jimmy Flood RN - 08/04/2024 4:28 AM EST Complete report provided. To ed of [facility]. [id number] Emergency department Note* Jimmy Flood RN - 08/04/2024 4:28 AM EST Complete report provided. To ed of [facility]. * Jimmy Flood RN - 08/04/2024 4:26 AM EST A/ox3. Independent to stretcher. Discharged to [facility]. Belongings set with ems transport. * Paras [...] COVID 04/2021 Eczema IBS (irritable bowel syndrome) [place] exposure MRSA (methicillin resistant staph aureus) culture [...] grade. . Her biological mom lives in [place]. No significant other right now. Has 2 [...] Abnormal ETHANOL IN SER/PLAS 274 (*) Narrative: BRIAR WOOD SORTER depression is seen >100 mg/dL. NOTE: This [...] Culture. Procedure Abnormality Status --------- ------ Complete Urinalysis[[id number]] Abnormal Final result Please view results for [...] department for psychiatric evaluation[facility] patient is afebrile hemodynamically stable. Alcohol elevated to 274. Mild elevation of transaminases likely secondary to alcohol use. Patient medically cleared for discharge to [facility] for further psychiatric evaluation. Diagnoses as [...] 08/04/2024 12:54 AM EST Emergency Department Encounter [facility] EMERGENCY DEPT Patient: Neal Larios : 1990 [...] emergency department for depression. Patient sent from [facility] for medical clearance. Patient presented there with his mother who has been worried about him. He states he had some social issues ongoing with his ex partner. Denies any abuse. Denies hallucinations alcohol drug use homicidal thoughts. Apparently at [facility] he endorsed SI but denies that here. Denies prior attempts. States he is not on any psychiatric medications but he was given Ativan and hydroxyzine reportedly at [facility]. He lives at home with his 10-year-old [...] 12:54 AM EST Patient was sent from [facility] for medical clearance. Patient is depressed. Patient denies SI to RN. Patient told PES that he is SI. documented in this [facility]02-05-2025 Emergency department Note* Jimmy Flood RN - 08/04/2024 4:26 AM EST A/ox3. Independent to stretcher. Discharged to [facility]. Belongings set with ems transport. [address]05-2025 Emergency department Note* Paras Pope - 08/04/2024 3:19 AM EST Luzma Tech at bedside obtaining vitals. [address]05-2025 Emergency department Note* LILLIE Hartley - 08/04/2024 1:51 AM EST CHRISTO Fox giving patient warm blanket for comfort. [address]2025 Emergency department Note* LILLIE Hartley - 08/04/2024 1:28 AM EST EKG at patient bedside. [address]2025 Emergency department Note* LILLIE Hartley - 08/04/2024 1:[address] Tellez at patient bedside. [address]2025 Emergency department Note* Paras Pope - 08/04/2024 1:12 AM EST Pt changed into 2 gowns and wanded by officer. Pt has 1 belonging bag. with pt in 47. [id number] Emergency department Triage note* Ruddy Eugene RN - 08/04/2024 12:54 AM EST Patient was sent from [facility] for medical clearance. Patient is depressed. Patient denies SI to RN. Patient told PES that he is SI. [id number] NotePatient was sent from [facility] for medical clearance. Patient is depressed. Patient denies SI to RN. Patient told PES that he is SI.[facility] 08-04-2024 Physician Emergency department Note* Prosper Tellez DO - 08/04/2024 12:54 AM EST EMERGENCY DEPARTMENT ENCOUNTER Pt Name: Neal Larios Birthdate 1990 Date of evaluation: 08/04/2024 ED Provider: Prosper Tellez DO CHIEF COMPLAINT Chief Complaint Patient presents with Suicidal Patient was sent from [facility] for medical clearance. Patient is depressed. Patient [...] COVID 04/2021 Eczema IBS (irritable bowel syndrome) [place] exposure MRSA (methicillin resistant staph aureus) culture positive Substance abuse (CMS/HCC) ([facility]) SURGICAL HISTORY Past Surgical History: Procedure Laterality [...] grade. . Her biological mom lives in [place]. No significant other right now. Has 2 [...] Abnormal ETHANOL IN SER/PLAS 274 (*) Narrative: BRIAR WOOD SORTER depression is seen >100 mg/dL. NOTE: This [...] Culture. Procedure Abnormality Status --------- ------ Complete Urinalysis[[id number]] Abnormal Final result Please view results for [...] use. Patient medically cleared for discharge to [facility] for further psychiatric evaluation. Diagnoses as [...] Crain MD at 08/04/2024 6:10 AM EST [id number] Physician Emergency department Note* Madelyn Crain MD - 08/04/2024 12:54 AM EST Emergency Department Encounter [facility] EMERGENCY DEPT Patient: Neal Larios : 1990 [...] emergency department for depression. Patient sent from [facility] for medical clearance. Patient presented there [...] was given Ativan and hydroxyzine reportedly at [facility]. He lives at home with his 10-year-old [...] for clarification.) Madelyn Crain MD Acute Care [facility] Madelyn Crain MD 08/04/24 0141 [employer] Phone: 1(520) 797-274602-14-2024 NoteHNO ID: [id number] Author: NATY NAGY APRN.[facility] Service: ? Author Type: Nurse Practitioner Type: Progress Notes Filed: 08/14/2023 09:40 Note Text: This note was created using Mosec, Mobile Secretaryriter. Subjective Annamarie Larios is a 33 year [...] (attention deficit hyperactivity disorder) Bipolar 1 disorder ([facility]) Eczema Hx MRSA infection IBS (irritable bowel syndrome) Substance abuse ([facility]) No past surgical history on file. ALLERGIES [...] tenderness or frontal sinus tenderness. Mouth/Throat: Lips: [place]. No lesions. Mouth: Mucous membranes are moist. [...] eye: Left conjunctiva i (more content not included)...[facility]02-14-2024 History of Present illness Narrative* Naty Nagy APRN.[facility] - 08/13/2023 7:31 PM EST This note was created using M[employer], Mobile Secretaryriter. Subjective Annamarie Larios is a 33 year [...] (attention deficit hyperactivity disorder) Bipolar 1 disorder ([facility]) Eczema Hx MRSA infection IBS (irritable bowel syndrome) Substance abuse ([facility]) No past surgical history on file. ALLERGIES [...] tenderness or frontal sinus tenderness. Mouth/Throat: Lips: [place]. No lesions. Mouth: Mucous membranes are moist. [...] BP 142/86 Temp 101.5. 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 I have reviewed the Advanced Practice Registered Nurse (MICROFICHE CAMERA OPERATOR) Student's documentation and verified the findings in the note as written. Any additions or changes are noted in bold/italics. Signature: Naty Nagy Date: 08/14/2023 Time: 9:40 AM [facility] Telephone encounter Note * Telephone Encounter - KEYONA Parker CNP - 07/25/2023 11:41 AM EST Rx sent. Follow up as scheduled. [id number] Miscellaneous Notes* Telephone Encounter - KEYONA Parker CNP - 07/25/2023 11:41 AM EST Rx sent. Follow up as scheduled. * Telephone Encounter - Radha Ennis - 07/25/2023 10:04 AM EST Prescription Request: Last medication check: 10/25/22 Last physical exam: 05/01/23 Next scheduled appointment: 05/03/24 Last date of refill on this medication 07/01/23 documented in this [facility]01-26-2024 Telephone encounter Note* Telephone Encounter - Radhajohn paul Ennis - 07/25/2023 10:04 AM EST Prescription Request: Last medication check: 10/25/22 Last physical exam: 05/01/23 Next scheduled appointment: 05/03/24 Last date of refill on this medication 07/01/23 [id number] Telephone encounter Note* Telephone Encounter - KEYONA Fierro CNP - 07/01/2023 2:16 PM EST Revie [id number] Miscellaneous Notes* Telephone Encounter - KEYONA Fierro CNP - 07/01/2023 2:16 PM EST Revie * Telephone Encounter - Chen Wang MA - 07/01/2023 11:14 AM EST Prescription Request: Last medication check: none Last physical exam: 05/01/23 Next scheduled appointment: 05/03/24 Last date of refill on this medication 05/26/23 30 day no refill documented in this [place] [id number] Telephone encounter Note* Telephone Encounter - Chen Wang MA - 07/01/2023 11:14 AM EST Prescription Request: Last medication check: none Last physical exam: 05/01/23 Next scheduled appointment: 05/03/24 Last date of refill on this medication 05/26/23 30 day no refill [place] [id number] Miscellaneous Notes* Telephone Encounter - KEYONA Fierro CNP - 05/26/2023 4:52 PM EST * Telephone Encounter - Chen Wang MA - 05/26/2023 11:56 AM EST Prescription Request: Last medication check: none Last physical exam: 05/01/23 Next scheduled appointment: 05/23/24 Last date of refill on this medication 04/25/23 30 day no refill documented in this [facility]11-27-2023 Telephone encounter Note* Telephone Encounter - KEYONA Fierro CNP - 05/26/2023 4:52 PM EST [place] [id number] Telephone encounter Note* Telephone Encounter - Chen Wang MA - 05/26/2023 11:56 AM EST Prescription Request: Last medication check: none Last physical exam: 05/01/23 Next scheduled appointment: 05/23/24 Last date of refill on this medication 04/25/23 30 day no refill [place] [id number] Telephone encounter Note* Telephone Encounter - KEYONA Fierro CNP - 05/20/2023 4:10 PM EST Noted [id number] Miscellaneous Notes* Telephone Encounter - KEYONA Fierro [...] recommend starting cholesterol medication documented in this [facility]11-21-2023 History and physical note* Nasrin Jaffe MD - 05/20/2023 1:03 PM EST Images from the original note were not included. [facility] PLASTIC SURGERY [address] [place] [id number] Dept: [phone] Dept Patient Name: Annamarie Larios Date: 05/20/23 [...] hyperactivity disorder) Eczema IBS (irritable bowel syndrome) [place] exposure MRSA (methicillin resistant staph aureus) culture positive Substance abuse ([facility]) ([facility]) Past Surgical History: Surgical History Past Surgical [...] under local anesthesia as an outpatient at [facility]. The orders are in. -The risks, benefits and options were discussed with the pt. The risks included but not limited to pain, bleeding, infection, heavy scarring, damage to surrounding structures, fluid collections, asymmetry, and need for further procedures. All of His questions were answered to their satisfaction andHe agrees to proceed with the procedure. [employer] Work Phone: 1(662) 655-375511-21-2023 History and physical note* Nasrin Jaffe MD - 05/20/2023 1:03 PM EST Images from the original note were not included. [facility] PLASTIC SURGERY [address] [place] [id number] Dept: [phone] Dept Patient Name: Annamarie Larios Date: 05/20/23 [...] hyperactivity disorder) Eczema IBS (irritable bowel syndrome) [place] exposure MRSA (methicillin resistant staph aureus) culture positive Substance abuse ([facility]) ([facility]) Past Surgical History: Surgical History Past Surgical [...] under local anesthesia as an outpatient at [facility]. The orders are in. -The risks, benefits and options were discussed with the pt. The risks included but not limited to pain, bleeding, infection, heavy scarring, damage to surrounding structures, fluid collections, asymmetry, and need for further procedures. All of His questions were answered to their satisfaction andHe agrees to proceed with the procedure. 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 Sindhu Espinosa MD Procedure Summary Anesthesia: Choice ASA: II Estimated Blood Loss: 2 mL Total IV Fluids: 200 for the mL Drains: * None in log * Specimens ID Source Type Tests Collected By Collected At Frozen? Priority Lab ID 1 Forehead Tissue TISSUE EXAM Nasrin Jaffe MD 05/20/23 1203 No [id number] Description: FOREHEAD SOFT TISSUE Staff: Core Worker: Isadora Rico RN Relief Core Worker: Neelam Farooq RN Scrub Person: Jenny Meade RN Sugical Field Reviewer Student: Xi Guerrero Indications: Neal Larios is [...] note was partially dictated using voice recognitionsoftware. [facility] in this [facility]11-21-2023 Note* Perioperative Nursing Note - Yvette Rico [...] All belongings taken with patient on discharge. [id number] Note* Perioperative Nursing Note - Yvette Rico [...] All belongings taken with patient on discharge. [place] [id number] Note* Perioperative Nursing Note - Yvette Rico RN - 05/20/2023 12:30 PM EST Family/visitor updated and at bedside with patient. [place] [id number] Note* Perioperative Nursing Note - Yvette Rico RN - 05/20/2023 12:30 PM EST Family/visitor updated and at bedside with patient. [id number] Hospital Discharge instructions* Discharge Instructions* Sindhu Espinosa [...] Call office with questions/concerns. 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 Sindhu Espinosa MD Procedure Summary Anesthesia: Choice ASA: II Estimated Blood Loss: 2 mL Total IV Fluids: 200 for the mL Drains: * None in log * Specimens ID Source Type Tests Collected By Collected At Frozen? Priority Lab ID 1 Forehead Tissue TISSUE EXAM Nasrin Jaffe MD 05/20/23 1203 No [id number] Description: FOREHEAD SOFT TISSUE Staff: Core Worker: Isadora Rico RN Relief Core Worker: Neelam Farooq RN Scrub Person: Jenny Meade RN Sugical Field Reviewer Student: Xi Guerrero Indications: Neal Larios is [...] note was partially dictated using voice recognitionsoftware. 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 Sindhu Espinosa MD Procedure Summary Anesthesia: Choice ASA: II Estimated Blood Loss: 2 mL Total IV Fluids: 200 for the mL Drains: * None in log * Specimens ID Source Type Tests Collected By Collected At Frozen? Priority Lab ID 1 Forehead Tissue TISSUE EXAM Nasrin Jaffe MD 05/20/23 1203 No [id number] Description: FOREHEAD SOFT TISSUE Staff: Core Worker: Isadora Rico RN Relief Core Worker: Neelam Farooq RN Scrub Person: Jenny Meade RN Sugical Field Reviewer Student: Xi Guerrero Indications: Neal Larios is [...] note was partially dictated using voice recognitionsoftware. [facility]11-03-2023 Telephone encounter Note* Telephone Encounter - Chanell Gomez MA - 05/02/2023 10:31 AM EDT Notified, scheduled, orders pended. [id number] Telephone encounter Note* Telephone Encounter - Chanell [...] still elevated would recommend starting cholesterol medication [place] [id number] Miscellaneous Notes* Telephone Encounter - Chanell Gomez MA - 05/02/2023 10:31 AM EDT Notified, scheduled, orders pended. * Telephone Encounter - Chanell Gomez MA - 05/02/2023 10:31 AM EDT ----- Message from KEYOAN Fierro CNP sent at 05/02/2023 10:03 AM [...] recommend starting cholesterol medication documented in this encounterSMemorial Health SystemDjfocl05-46-1929 History of Present illness Narrative* Chanell Gomez MA - 05/01/2023 9:20 AM EDT Verified by name and . * Mare Cezar, MICROFICHE CAMERA OPERATOR - SENIOR SALES MANAGER - 05/01/2023 9:20 AM EDT Images from [...] well. Work is doing well at the [employer]- 6.5 years. .Has scheduled with plastic surgery [...] CNP 05/01/2023 1:54 PM documented in this [facility]11-01-2023 Telephone encounter Note* Telephone Encounter - Stefania Pena - 04/30/2023 2:28 PM EDT Case# [id number] Procedure: excision soft tissue mass of the right forehead intermediate versus complex closure Sx Date: 05/20/23 Time: 1 HOUR Location: [facility] 2 PM Anesthesia: GENERAL OR MAC CPT: 72716,[id number] ICD-10: M79.89 Special Equipment: PAT: SAME DAY HP PCNR PER PRE CERT TOOL ON AVAILITY [facility] [id number] Miscellaneous Notes* Telephone Encounter - Stefania Pena - 04/30/2023 2:28 PM EDT Case# [id number] Procedure: excision soft tissue mass of the right forehead intermediate versus complex closure Sx Date: 05/20/23 Time: 1 HOUR Location: [facility] 2 PM Anesthesia: GENERAL OR MAC CPT: 83433,27618,[id number] ICD-10: M79.89 Special Equipment: PAT: SAME DAY [...] closure under local anesthesia an outpatient at [facility]. We will need 1 hour. Thank you Edwina East PA-C documented in this encounterSMemorial Health SystemHtgziv11-41-7995 Telephone encounter Note* Telephone Encounter - Stefania Pena - 04/30/2023 2:27 PM EDT ----- Message from Edwina Delaney PA-C sent at 04/30/2023 1:55 PM EDT ----- Stefania, This patient is to be scheduled for excision soft tissue mass of the right forehead intermediate versus complex closure under local anesthesia an outpatient at [facility]. We will need 1 hour. Thank you Edwina East PA-C [facility] [id number] History of Present illness Narrative* Edwina Delaney [...] hyperactivity disorder) Eczema IBS (irritable bowel syndrome) [place] exposure MRSA (methicillin resistant staph aureus) culture positive Substance abuse (CMS/HCC) ([facility]) Past Surgical History: Past Surgical History: Procedure [...] under local anesthesia as an outpatient at [facility]. The orders are in. -The risks, benefits [...] me. Edwina East PA-C documented in this [facility]10-30-2023 Telephone encounter Note* Telephone Encounter - Chanell Gomez MA - 04/28/2023 10:07 AM EDT Scheduled. [facility] [id number] Miscellaneous Notes* Telephone Encounter - Chanell Gomez [...] 59 with 5 refills documented in this [facility]10-27-2023 Telephone encounter Note* Telephone Encounter - Jayne Avitiaons - 04/25/2023 1:19 PM EDT Message released to patient as written. Patient Verbalized Understanding Patient's further questions if applicable: None Patient is scheduled for Physical Were all questions from office addressed or relayed to the patient from encounter: Yes [facility] [id number] Miscellaneous Notes* Telephone Encounter - Jayne Kayley - 04/25/2023 1:19 PM EDT Message released to patient as written. Patient Verbalized Understanding Patient's further questions if applicable: None Patient is scheduled for Physical Were all questions from office addressed or relayed to the patient from encounter: Yes documented in this encounterSMemorial Health SystemGthynr70-08-8486 Telephone encounter Note* Telephone Encounter - Chanell Gomez MA - 04/25/2023 11:52 AM EDT Images from the original note were not included. KEYONA Parker CNP 04/25/23 11:50 AM Note Rx sent with no refills. Due for annual physical next month- please schedule. Left a message to return call. [facility] [id number] Miscellaneous Notes* Telephone Encounter - Chanell Gomez [...] 59 with 5 refills documented in this encounterSMemorial Health SystemPlcfmj41-63-7889 Telephone encounter Note* Telephone Encounter - KEYONA Parker CNP - 04/25/2023 11:50 AM EDT Rx sent with no refills. Due for annual physical next month- please schedule. [facility] [id number] Telephone encounter Note* Telephone Encounter - Chen Wang MA - 04/25/2023 10:59 AM EDT Prescription Request: Last medication check: 04/12/19 Last physical exam: 05/02/22 Next scheduled appointment: none Last date of refill on this medication 05/02/22 60 with 5 refills [facility] [id number] Telephone encounter Note* Telephone Encounter - Liz Corley MA - 10/24/2022 2:52 PM EDT Patient cannot make it in during any of your openings today and will keep scheduled appointment tomorrow. [place] [id number] Miscellaneous Notes* Telephone Encounter - Liz Corley [...] to get a hold of dentist in [place]. Face is not as swollen as it [...] Toothache present > 24 hours Protocols used: Asavnocvf-SXULI-ZG 3/10 pain, wants to get infection taken care of and requesting antibiotic or if he needs seen. Rootcanal 3-4 months ago on that tooth and assuming unsuccessful documented in this [facility]04-27-2023 Telephone encounter Note* Telephone Encounter - KEYONA Fierro CNP - 10/24/2022 2:45 PM EDT He will need to be seen in office. [employer] Work Phone: [phone] Telephone encounter Note* Telephone Encounter - Malena [...] to get a hold of dentist in [place]. Face is not as swollen as it [...] Toothache present > 24 hours Protocols used: Phpjfjndw-SVOPQ-ZB 3/10 pain, wants to get infection taken care of and requesting antibiotic or if he needs seen. Rootcanal 3-4 months ago on that tooth and assuming unsuccessful [id number] NoteHNO ID: [id number] Author: Didier Kilgore APRN.DAT Service: ? Author [...] (attention deficit hyperactivity disorder) Bipolar 1 disorder ([facility]) Eczema Hx MRSA infection IBS (irritable bowel syndrome) Substance abuse ([facility]) No past surgical history on file. ALLERGIES [...] swelling or pain on movement. Mouth/Throat: Lips: [place]. Mouth: Mucous membranes are moist. Pharynx: Oropharynx [...] of care. This note was generated using EndPlay software. It may contain errors in wording, punctuation, or spelling. Didier Kilgore APRN.DATSalem Regional Medical Center04-24-2023 History of Present illness Narrative* Didier Kilgore APRN.DTA - 10/21/2022 8:47 AM EDT Subjective HPI [...] (attention deficit hyperactivity disorder) Bipolar 1 disorder ([facility]) Eczema Hx MRSA infection IBS (irritable bowel syndrome) Substance abuse ([facility]) No past surgical history on file. ALLERGIES [...] swelling or pain on movement. Mouth/Throat: Lips: [place]. Mouth: Mucous membranes are moist. Pharynx: Oropharynx [...] of care. This note was generated using EndPlay software. It may contain errors in wording, punctuation, or spelling. Didier Kilgore APRN.DAT documented in this encounterAultman [facility]03-25-2023 NoteHNO ID: [id number] Author: Iain Lobo PA-C Service: ? Author Type: Physician Mental Health Clinician Type: Progress Notes Filed: 09/21/2022 10:31 AM Note Text: This note was created using [employer]. Subjective Annamarie Larios is a 32 year [...] (attention deficit hyperactivity disorder) Bipolar 1 disorder ([facility]) Eczema Hx MRSA infection IBS (irritable bowel syndrome) Substance abuse ([facility]) Current Outpatient Medications Medication Sig Dispense Refill [...] symptoms - STREP A MOLECULAR (POC) [facility]03-25-2023 History of Present illness Narrative* Iain Lobo PA-C - 09/21/2022 10:27 AM EDT This note was created using [employer]. Subjective Annamarie Larios is a 32 year [...] (attention deficit hyperactivity disorder) Bipolar 1 disorder ([facility]) Eczema Hx MRSA infection IBS (irritable bowel syndrome) Substance abuse ([facility]) Current Outpatient Medications Medication Sig Dispense Refill [...] (POC) Iain Lobo PA-C documented in this encounterAultman [facility]10-31-2022 History of Present illness Narrative* Dora Sexton [...] infection IBS (irritable bowel syndrome) Substance abuse ([facility]) ALLERGIES Cephlasporins [Cephalosporins] and Penicillins MEDICATIONS Current [...] sooner. Dora Sexton PA-C documented in this encounterAultman [facility]08-09-2022 History of Present illness Narrative* Jj Barry APRN.SENIOR SALES MANAGER - 02/05/2022 7:30 PM EDT Images from [...] infection IBS (irritable bowel syndrome) Substance abuse ([facility]) No past surgical history on file. ALLERGIES [...] plan Jj Barry APRN.DAT documented in this [facility]* Diagnosis COVID-19 documented in this encounter [facility] Work Phone: Evaluation noteNo assessment information available [facility] Work Phone: Evaluation note* Diagnosis Rash- Primary Rash and other nonspecific skin eruption documented in this encounter [facility]* Diagnosis Nausea- Primary Nausea alone documented in this [facility]* Diagnosis Viral URI- Primary Acute upper respiratory infections of unspecified site documented in this encounter [facility] note* Diagnosis Sore throat- Primary Acute pharyngitis Viral URI Acute upper respiratory infections of unspecified site documented in this encounter [facility] note* Diagnosis Mass of soft tissue of face- Primary Other specified soft tissue disorders [facility]* Diagnosis Annual physical exam- Primary Routine general medical examination at a health care facility Need for hepatitis C screening test Special screening examination for other specified viral diseases Screening for HIV (human immunodeficiency virus) Special screening examination for other specified viral diseases Screening for lipid disorders Other specified soft tissue disorders documented in this encounter [facility] note* Diagnosis Mixed hyperlipidemia- Primary Other specified soft tissue disorders documented in this encounter [facility] note* Diagnosis Mass of soft tissue of face- Primary Other specified soft tissue disorders [facility]* Diagnosis Mixed hyperlipidemia- Primary documented in this encounter [facility] note* Diagnosis Strep throat- Primary Streptococcal sore throat documented in this encounter [facility] note* Diagnosis Annual physical exam- [...] depression type- Primary [facility] Additional Instructions Follow-up with your PCP and return for any worsening of your symptoms.[facility] Work Phone: Hospital Discharge instructionsAdditional Instructions follow up with ophthalmology within one week to evaluate right subconjuctival hemorrhageWTrinity Health System [facility] Work Phone: Reason for referral (narrative)No reason for referral information availableWTrinity Health System [facility] Campus Work Phone: Summary Purpose Family History No Family History Records FoundNo Family History Records FoundNo Family History Records FoundNo Family History Records FoundNo Family History Records Found Advance Directives No Advanced Directives Records FoundDocuments on File Type Date Recorded Patient Refrigeration Lead Expl anation ACP-Advance Directive ACP-Power of Unisaw Operator Advance Directive Response Recorded Date/ Time Living Will No January 19, 2022 4:45pm Power of Unisaw Operator No Pau 23rd, 202 2 4:45pm Advance Directive Response Recorded Date/ Time Living Will No April 19 6:31pm Power of Unisaw Operator No April 19, 2023 6:31pm Latest Code [...] Do you have a Healthcare Power of Unisaw Operator? No February 13, 2025 3:06pm Advance Directive Response Recorded Date/ Time Do you have a Healthcare Power of Unisaw Operator? No February 13, 2025 7:35pm Chief Complaint [...] section and content) DATE CREATED AUTHOR 02/22/2019 [facility] DATE CREATED AUTHOR AUTHOR'S ORGANIZ ATION 06/15/2021 [facility] DATE CREATED AUTHOR AUTHOR'S ORGANIZ ATION 08/15/2023 [facility] DATE CREATED AUTHOR AUTHOR'S ORGANIZ ATION 08/06/2024 [facility] DATE CREATED AUTHOR AUTHOR'S ORGANIZ ATION [facility] Care Teams (unrecognized sec tion and content) Animal Cruelty Investigator Relationship Specialty Start Date End Date Nikita Sorensen MD [address] [facility], [place] [address] PCP - General Family Medicine 06/05/15 Animal Cruelty Investigator Relationship Specialty Start Date End Date Nikita Sorensen [address] [facility], [place] [id number] PCP - General Family Practice 01/29/12 Animal Cruelty Investigator Relationship Specialty Start Date End Date Nikita Sorensen [address] [place] [facility] [place] [address] PCP - General Family Medicine 01/29/12 Animal Cruelty Investigator Relationship Specialty Start Date End Date Nikita Sorensenoy [address] [place] [facility] [place] [address] PCP - General Family Medicine 01/29/12 Animal Cruelty Investigator Relationship Specialty Start Date End Date Nikita Sorensen [address] [facility], [place] [phone] PCP - General Family Medicine 01/29/12 Animal Cruelty Investigator Relationship Specialty Start Date End Date Nikita Sorensen MD [address] [place] [address], [place] [address] PCP - General 06/05/15 Team Status: Active Member Role Status Dates Dr. Nikita Sorensen MD Family Provider Active Dr. Nikita Sorensen MD Primary Care Provider Active Team Status: Inactive Member Role Status Dates Dr. Nikita Sorensen MD Primary Care Provider Active Jero Mancia MD Emergency Provider Active Animal Cruelty Investigator Relationship Specialty Start Date End Date Nikita Sorensen MD [address] [place] [address], [place] [address] PCP - General 06/05/15 Animal Cruelty Investigator Relationship Specialty Start Date End Date Nikita Sorensen MD [address] [place] [address] PCP - General 06/05/15 Animal Cruelty Investigator Relationship Specialty Start Date End Date Nikita Sorensen MD [address] [facility] [place] [address] PCP - General 06/05/15 Animal Cruelty Investigator Relationship Specialty Start Date End Date Nikita Sorensen MD [address] [facility] [place] [address] PCP - General 06/05/15 Animal Cruelty Investigator Relationship Specialty Start Date End Date Nikita Sorensen MD [address] [facility] [place] [address] PCP - General 06/05/15 Animal Cruelty Investigator Relationship Specialty Start Date End Date Nikita Sorensen MD [address] [facility] [facility] [place] [address] PCP - General 06/05/15 Animal Cruelty Investigator Relationship Specialty Start Date End Date Nikita Sorensen MD [address] [place] [address] [place] [address] PCP - General 06/05/15 Animal Cruelty Investigator Relationship Specialty Start Date End Date Nikita Sorensen MD [address] [place] [address] [place] [address] PCP - General 06/05/15 Animal Cruelty Investigator Relationship Specialty Start Date End Date Nikita Sorensen MD [address] [facility] [place] [address] PCP - General 06/05/15 Animal Cruelty Investigator Relationship Specialty Start Date End Date Nikita Sorensen [address] [place] [address] [place] [address] PCP - General Family Medicine 01/29/12 Animal Cruelty Investigator Relationship Specialty Start Date End Date Nikita Sorensen MD [address] [place] [address] [facility] [place] [address] PCP - General 06/05/15 Team Status: Active [...] or prosecute any alcohol or drug abuse patient.[facility] the event this information is protected by the Federal Confidentiality of Alcohol and Drug Abuse Patient Records regulations: The Federal rules restrict any use of the information to criminally investigate or prosecute any alcohol or drug abuse patient.[facility] the event this information is protected by the Federal Confidentiality of Alcohol and Drug Abuse Patient Records regulations: The Federal rules restrict any use of the information to criminally investigate or prosecute any alcohol or drug abuse patient.[facility] the event this information is protected by the Federal Confidentiality of Alcohol and Drug Abuse Patient Records regulations: The Federal rules restrict any use of the information to criminally investigate or prosecute any alcohol or drug abuse patient.[facility] the event this information is protected by the Federal Confidentiality of Alcohol and Drug Abuse Patient Records regulations: The Federal rules restrict any use of the information to criminally investigate or prosecute any alcohol or drug abuse patient.[facility] Reason for Visit (unrecogniz ed section [...] 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] Procedures HI EXC B9 LES MRGN XCP SK TG F/E/E/N/L/M 1.1-2.0CM HI REPAIR INTERMEDIATE F/E/E/N/L&/MUC 2.5 CM/< HI REPAIR COMPLEX F/C/C/M/N/AX/G/H/F 1.1-2.5 CM EXCISION OF SOFT TISSUE MASS OF THE RIGHT FOREHEAD WITH IMMEDIATE VERSUS COMPLEX CLOSURE REPAIR INTERMEDIATE WOUNDS OF FACE EARS EYELIDS NOSE LIPS MUCOUS MEMBRANES 2.5 CM OR LESS REPAIR COMPLEX WOUND OF FOREHEAD CHEEK CHIN MOUTH NECK AXILLAE GENITALIA HANDS FEET 1.1 TO 2.5 CM Nasrin Jaffe MD [address] [place] [id number] [facility] Main Or [facility] [place] [address] Referral ID Status Reason Start Date Expiration Date Visits Re quested Visits Authorized [id number] 1 Reason Comments Fever chills, cough and trina dyaches, exposed to strep Reason Comments Suicidal Patient was sent fro [facility] for medical clearance. Patient is depressed. [...] not necessary. bupivacaine-EPINEPHrine PF (Marcaine w/EPI) 0.25% -[id number] injection (CANCELED) As needed, Starting on Fri05/20/23 [...] BE BASED ON THE PRIMARY CLINICAL RECORDS. [employer] provides no warranty or guarantee of the accuracy or completeness of information in this document.
--- OUTSIDE RECORDS SUMMARY | 2025-04-18 11:50 | XMS RPT_ITS | CCD ---
Author Organization [facility] Care Team Providers Care Informatica Architect Name Role Phone dEu FAJARDO, Nikita Llanes Primary Care Provider NIKITA SORENSEN Primary Care Unavailabl NIKITA Rosas Primary Care Unavailabl NIKITA Rosas Primary Care Unavailabl gricelda Sorensen MD, Nikita Llanes Primary Care Provider MADELYN CRAIN Attending Unavailable EDU, NIKITA Primary Care Unavailable Edu FAJARDO, Dr. Shelton Primary Care Provider Dr. Deep Holman DO Emergency Provider Neal FAJARDO, Dr. Lemon Admit Provider Neal FAJARDO, Dr. Lemon Attending Provider Neal FAJARDO, Dr. Lemon Other Provider [phone] Isac FAJARDO, Dr. Angela Vargas Attending Provider Isac FAJARDO, Dr. Angela Vargas Other Provider [phone] Black FAJARDO, Dr. Huddleston Attending Provider Unavailab [...] Unavailable Kittoe, Ulysses Attending Unavailable Nikita Sorensen [facility] Unavailable Ulysses Hernandez Consulting Unavailable Xochilt De Jesus Attending Unavailable Xochilt De Jesus Consulting Unavailable Xochilt De Jesus Admitting Unavailable Edu Nikita [facility] Unavailable Kenneth Peter Attending Unavailable Kenneth Peter Consulting Unavailable Jo-Ann Reynolds Attending Unavailable Xochilt De Jesus Admitting Unavailable Xochilt De Jesus Consulting Unavailable Nikita Sorensen [facility] Unavailable Kenneth Peter Attending Unavailable Allergies Allergy Classification Reported Allergen(s) Allergy Type Date of Onset Reaction(s) Facility (20 sources) Cephalosporins (Antibiotic); Translations: [CEPHALOSPORINS] Propensity to adverse reactions to drug 5 [facility] (20 sources) Penicillins; Translations: [PENICILLINS] Propensity to adverse reactions to drug 2 [facility] Work Phone: (17 sources) Cephalexin Drug Allergy 6 [facility] DNA SEQ (17 sources) Citronella Oil Propensity to adverse reactions 2 [facility] DNA SEQ Medications Current Medications Medication Drug Class(es) Dates [...] oral solution (1 source) alpha-Adrenergic Agonist, Uncompetitive O-cvqmeo-L-aspartat e Receptor Antagonist, Sigma-1 Agonist Start: 10-18-2019 [...] End: 05-20-2023 diphenhydrAMINE (BENADryl) injection 12.5 mg [id number] 0.3 ml EPINEPHrine 1 mg/ml auto-injector (5 [...] Range Facility Discharge Instructionon 03-30 Discharge Instruction [facility] Medical Records Department [address] [place] [address] Instructions for Home/Discharge Instructions 04/11/25 0916 MR#: [id number] Acct: [id number] Name: ANNAMARIE LARIOS Rep #: [id number] : 1990 34 From: Kenneth Peter MD [...] Up: Nikita Sorensen MD [Primary Care Provider, [facility][1]] Disposition Disposition (needs filled in before D/C Order can be placed): Inpatient Rehab Unit/Facility 04/11/25 0918 Kenneth Peter MD CC: Dr. Nikita Sorensen MD; Dr. Xochilt De Jesus MD Signed Normal [facility] CBC W/Diff, Automatedon 10 0-2024 Absolute Lymph 3.46 X10 3/uL Normal 0.83-4.51 [facility] Comment on above: Performed By: #### L 100.0100, L500.4050 ####[facility] [address] [place], [address] Absolute Neut 8.1 X10 3/uL High 2.0-7.7 [facility] Comment on above: Performed By: #### L 100.0100, L500.4050 ####[facility] [address] [place], [address] Basophils/100 WBC (Bld) 0.7 % Normal 0-1 [facility] Comment on above: Performed By: #### L 100.0100, L500.4050 ####[facility] [address] [place], [address] Eosinophils/100 WBC (Bld) 4.1 % Normal 0-5 [facility] Comment on above: Performed By: #### L 100.0100, L500.4050 ####[facility] [address] [place], [address] Erythrocyte distribution width (RBC) [Ratio] 14.0 % Normal 11.6-14.6 [facility] Comment on above: Performed By: #### L 100.0100, L500.4050 ####[facility] [address] [place], [address] Hematocrit (Bld) [Volume fraction] 44.7 % Normal 40-54 [facility] Comment on above: Performed By: #### L 100.0100, L500.4050 ####[facility] [address] [place], [address] Hemoglobin (Bld) [Mass/Vol] 15.3 g/dL Normal 13.0-16.5 [facility] Comment on above: Performed By: #### L 100.0100, L500.4050 ####[facility] [address] [place], [address] IG% 0.200 Normal 0.0-0.9 [facility] Comment on above: Result Comment: IG% - Immature Granulocytes (promyelocytes, myelocytes and metamyelocytes) > 1% indicates that a LEFT SHIFT is Present. Performed By: #### L 100.0100, L500.4050 ####[facility] [address] [place], [address] Lymphocytes/100 WBC (Bld) 25.9 % Normal 19-41 [facility] Comment on above: Performed By: #### L 100.0100, L500.4050 ####[facility] [address] [place], [address] MCH (RBC) [Entitic mass] 28.9 pg Normal 27.0-32.0 [facility] Comment on above: Performed By: #### L 100.0100, L500.4050 ####[facility] [address] [place], [address] MCHC (RBC) [Mass/Vol] 34.2 g/dL Normal 32-36 [facility] Comment on above: Performed By: #### L 100.0100, L500.4050 ####[facility] [address] [place], [address] MCV (RBC) [Entitic vol] 84.5 fL Normal 80-94 [facility] Comment on above: Performed By: #### L 100.0100, L500.4050 ####[facility] [address] [place], [address] Monocytes/100 WBC (Bld) 8.4 % Normal 0-10 [facility] Comment on above: Performed By: #### L 100.0100, L500.4050 ####[facility] [address] [place], [address] Neutrophils/100 WBC (Bld) 60.7 % Normal 47-70 [facility] Comment on above: Performed By: #### L 100.0100, L500.4050 ####[facility] [address] [place], [address] Nucleated RBC (Bld) [#/Vol] 0 10*3/uL Normal 0-5 [facility] Comment on above: Performed By: #### L 100.0100, L500.4050 ####[facility] [address] [place], [address] Platelet mean volume (Bld) [Entitic vol] 9.7 fL Normal 6.2-12.0 [facility] Comment on above: Performed By: #### L 100.0100, L500.4050 ####[facility] [address] [place], [address] Platelets (Bld) [#/Vol] 418 10*3/uL Normal 150-450 [facility] Comment on above: Performed By: #### L 100.0100, L500.4050 ####[facility] [address] [place], [address] RBC (Bld) [#/Vol] 5.29 10*6/uL Normal 4.6-6.2 [facility] Comment on above: Performed By: #### L 100.0100, L500.4050 ####[facility] [address] [place], [address] RDW SD 43.1 fl Normal 35.1-43.9 [facility] Comment on above: Performed By: #### L 100.0100, L500.4050 ####[facility] [address] [place], [address] WBC (Bld) [#/Vol] 13.4 10*3/uL High 4.4-11.0 [facility] Comment on above: Performed By: #### L 100.0100, L500.4050 ####[facility] [address] [place], [address] Comprehensive Metabolic Prof ilon 04-08-2025 Albumin [Mass/Vol] 3.9 g/dL Normal 3.5-5.[address] [facility] Comment on above: Performed By: #### L 100.0100, L500.4050 ####[facility] [address] [place], [address] Albumin/Globulin [Mass ratio] 1.4 {ratio} Normal 0.9-2.4 [facility] Comment on above: Performed By: #### L 100.0100, L500.4050 ####[facility] [address] [place], [address] ALK PHOS 87 U/L Normal 40-129 [facility] Comment on above: Performed By: #### L 100.0100, L500.4050 ####[facility] [address] [place], [address] ALT [Catalytic activity/Vol] 126 U/L High <=46 [facility] Comment on above: Performed By: #### L 100.0100, L500.4050 ####[facility] [address] [place], [address] AST [Catalytic activity/Vol] 83 U/L High <=37 [facility] Comment on above: Performed By: #### L 100.0100, L500.4050 ####[facility] [address] [place], [address] Bilirubin [Mass/Vol] 0.52 mg/dL Normal 0.00-1.30 [facility] Comment on above: Performed By: #### L 100.0100, L500.4050 ####[facility] [address] [place], [address] BUN/CRE 13.2 RATIO Normal 10-20 [facility] Comment on above: Performed By: #### L 100.0100, L500.4050 ####[facility] [address] [place], [address] Calcium [Mass/Vol] 8.6 mg/dL Normal 7.6-11.[address] [facility] Comment on above: Performed By: #### L 100.0100, L500.4050 ####[facility] [address] [place], [address] Chloride [Moles/Vol] 101 mmol/L Normal 98-108 [facility] Comment on above: Performed By: #### L 100.0100, L500.4050 ####[facility] [address] [place], [address] CO2 [Moles/Vol] 24.6 mmol/L Normal 21.0-32.0 [facility] Comment on above: Performed By: #### L 100.0100, L500.4050 ####[facility] [address] [place], [address] Creatinine [Mass/Vol] 0.99 mg/dL Normal 0.70-1.20 [facility] Comment on above: Performed By: #### L 100.0100, L500.4050 ####[facility] [address] [place], [address] ECRCL 116.89 ml/min Normal 50-250 [facility] Comment on above: Performed By: #### L 100.0100, L500.4050 ####[facility] [address] [place], [address] GAP 13 Normal 5-15 [facility] Comment on above: Performed By: #### L 100.0100, L500.4050 ####[facility] [address] [place], [address] GFR/1.73 sq M.predicted among non-blacks MDRD (S/P/Bld) [Vol rate/Area] 101 mL/min/{1.73_m2} Normal >60 [facility] Comment on above: Result Comment: mL/m in/1.73m2 CKD-EPI Creatinine Equation (2020) Performed By: #### L 100.0100, L500.4050 ####[facility] [address] [place], [address] Globulin (S) [Mass/Vol] 2.9 g/dL Normal 2.2-4.2 [facility] Comment on above: Performed By: #### L 100.0100, L500.4050 ####[facility] [address] [place], [address] Glucose [Mass/Vol] 92 mg/dL Normal 70-[address] [facility] Comment on above: Performed By: #### L 100.0100, L500.4050 ####[facility] [address] [place], [address] Potassium [Moles/Vol] 3.7 mmol/L Normal 3.3-5.1 [facility] Comment on above: Performed By: #### L 100.0100, L500.4050 ####[facility] [address] [place], [address] Sodium [Moles/Vol] 138 mmol/L Normal 133-[address] [facility] Comment on above: Performed By: #### L 100.0100, L500.4050 ####[facility] [address] [place], [address] T PROT 6.8 g/dL Normal 5.9-8.4 [facility] Comment on above: Performed By: #### L 100.0100, L500.4050 ####[facility] [address] [place], [address] Urea nitrogen [Mass/Vol] 13 mg/dL Normal 4-19 [facility] Comment on above: Performed By: #### L 100.0100, L500.4050 ####[facility] [address] [place], [address] Alcohol, Blood (Medical)-Ser umon 04-07-2025 SERUM ETOH 293.0 mg/dL High <=10.0 [facility] Comment on above: Result Comment: This test is for medical purposes only. The legal definition of intoxication varies according to local law. Performed By: #### L 500.4050, L100.0100, L501.9100, L505.5000 ####[facility] [address] [place], [address] CBC W/Diff, Automatedon 10-0 Absolute Lymph 4.21 X10 3/uL Normal 0.83-4.51 [facility] Comment on above: Performed By: #### L 500.4050, L100.0100, L501.9100, L505.5000 #### [facility] [address] [place], [address] Absolute Neut 5.1 X10 3/uL Normal 2.0-7.7 [facility] Comment on above: Performed By: #### L 500.4050, L100.0100, L501.9100, L505.5000 #### [facility] [address] [place], [address] Basophils/100 WBC (Bld) 1.2 % High 0-1 [facility] Comment on above: Performed By: #### L 500.4050, L100.0100, L501.9100, L505.5000 #### [facility] [address] [place], [address] Eosinophils/100 WBC (Bld) 1.9 % Normal 0-5 [facility] Comment on above: Performed By: #### L 500.4050, L100.0100, L501.9100, L505.5000 #### [facility] [address] [place], [address] Erythrocyte distribution width (RBC) [Ratio] 14.0 % Normal 11.6-14.6 [facility] Comment on above: Performed By: #### L 500.4050, L100.0100, L501.9100, L505.5000 #### [facility] [address] [place], [address] Hematocrit (Bld) [Volume fraction] 49.7 % Normal 40-54 [facility] Comment on above: Performed By: #### L 500.4050, L100.0100, L501.9100, L505.5000 #### [facility] [address] [place], [address] Hemoglobin (Bld) [Mass/Vol] 16.9 g/dL High 13.0-16.5 [facility] Comment on above: Performed By: #### L 500.4050, L100.0100, L501.9100, L505.5000 #### [facility] [address] [place], [address] IG% 0.200 Normal 0.0-0.9 [facility] Comment on above: Result Comment: IG% - Immature Granulocytes (promyelocytes, myelocytes and metamyelocytes) > 1% indicates that a LEFT SHIFT is Present. Performed By: #### L 500.4050, L100.0100, L501.9100, L505.5000 #### [facility] [address] [place], [address] Lymphocytes/100 WBC (Bld) 39.8 % Normal 19-41 [facility] Comment on above: Performed By: #### L 500.4050, L100.0100, L501.9100, L505.5000 #### [facility] [address] [place], [address] MCH (RBC) [Entitic mass] 28.8 pg Normal 27.0-32.0 [facility] Comment on above: Performed By: #### L 500.4050, L100.0100, L501.9100, L505.5000 #### [facility] [address] [place], [address] MCHC (RBC) [Mass/Vol] 34.0 g/dL Normal 32-36 [facility] Comment on above: Performed By: #### L 500.4050, L100.0100, L501.9100, L505.5000 #### [facility] [address] [place], [address] MCV (RBC) [Entitic vol] 84.7 fL Normal 80-94 [facility] Comment on above: Performed By: #### L 500.4050, L100.0100, L501.9100, L505.5000 #### [facility] [address] [place], [address] Monocytes/100 WBC (Bld) 8.6 % Normal 0-10 [facility] Comment on above: Performed By: #### L 500.4050, L100.0100, L501.9100, L505.5000 #### [facility] [address] [place], [address] Neutrophils/100 WBC (Bld) 48.3 % Normal 47-70 [facility] Comment on above: Performed By: #### L 500.4050, L100.0100, L501.9100, L505.5000 #### [facility] [address] [place], [address] Nucleated RBC (Bld) [#/Vol] 0 10*3/uL Normal 0-5 [facility] Comment on above: Performed By: #### L 500.4050, L100.0100, L501.9100, L505.5000 #### [facility] [address] [place], [address] Platelet mean volume (Bld) [Entitic vol] 9.7 fL Normal 6.2-12.0 [facility] Comment on above: Performed By: #### L 500.4050, L100.0100, L501.9100, L505.5000 #### [facility] [address] [place], [address] Platelets (Bld) [#/Vol] 454 10*3/uL High 150-450 [facility] Comment on above: Performed By: #### L 500.4050, L100.0100, L501.9100, L505.5000 #### [facility] [address] [place], [address] RBC (Bld) [#/Vol] 5.87 10*6/uL Normal 4.6-6.2 [facility] Comment on above: Performed By: #### L 500.4050, L100.0100, L501.9100, L505.5000 #### [facility] [address] [place], [address] RDW SD 43.0 fl Normal 35.1-43.9 [facility] Comment on above: Performed By: #### L 500.4050, L100.0100, L501.9100, L505.5000 #### [facility] [address] [place], [address] WBC (Bld) [#/Vol] 10.6 10*3/uL Normal 4.4-11.0 [facility] Comment on above: Performed By: #### L 500.4050, L100.0100, L501.9100, L505.5000 #### [facility] [address] [place], [address] Comprehensive Metabolic Prof txon 04-07-2025 Albumin [Mass/Vol] 4.5 g/dL Normal 3.5-5.[address] [facility] Comment on above: Performed By: #### L 500.4050, L100.0100, L501.9100, L505.5000 ####[facility] [address] [place], [address] Albumin/Globulin [Mass ratio] 1.3 {ratio} Normal 0.9-2.4 [facility] Comment on above: Performed By: #### L 500.4050, L100.0100, L501.9100, L505.5000 ####[facility] [address] [place], [address] ALK PHOS 106 U/L Normal 40-129 [facility] Comment on above: Performed By: #### L 500.4050, L100.0100, L501.9100, L505.5000 ####[facility] [address] [place], [address] ALT [Catalytic activity/Vol] 153 U/L High <=46 [facility] Comment on above: Performed By: #### L 500.4050, L100.0100, L501.9100, L505.5000 ####[facility] [address] [place], [address] AST [Catalytic activity/Vol] 104 U/L High <=37 [facility] Comment on above: Performed By: #### L 500.4050, L100.0100, L501.9100, L505.5000 ####[facility] [address] [place], [address] Bilirubin [Mass/Vol] 0.47 mg/dL Normal 0.00-1.30 [facility] Comment on above: Performed By: #### L 500.4050, L100.0100, L501.9100, L505.5000 ####[facility] [address] [place], [address] BUN/CRE 9.2 RATIO Low 10-20 [facility] Comment on above: Performed By: #### L 500.4050, L100.0100, L501.9100, L505.5000 ####[facility] [address] [place], [address] Calcium [Mass/Vol] 8.9 mg/dL Normal 7.6-11.[address] [facility] Comment on above: Performed By: #### L 500.4050, L100.0100, L501.9100, L505.5000 ####[facility] [address] [place], [address] Chloride [Moles/Vol] 97 mmol/L Low 98-108 [facility] Comment on above: Performed By: #### L 500.4050, L100.0100, L501.9100, L505.5000 ####[facility] [address] [place], [address] CO2 [Moles/Vol] 25.7 mmol/L Normal 21.0-32.0 [facility] Comment on above: Performed By: #### L 500.4050, L100.0100, L501.9100, L505.5000 ####[facility] [address] [place], [address] Creatinine [Mass/Vol] 1.06 mg/dL Normal 0.70-1.20 [facility] Comment on above: Performed By: #### L 500.4050, L100.0100, L501.9100, L505.5000 ####[facility] [address] [place], [address] ECRCL 110.53 ml/min Normal 50-250 [facility] Comment on above: Performed By: #### L 500.4050, L100.0100, L501.9100, L505.5000 ####[facility] [address] [place], [address] GAP 16 High 5-15 [facility] Comment on above: Performed By: #### L 500.4050, L100.0100, L501.9100, L505.5000 ####[facility] [address] [place], [address] GFR/1.73 sq M.predicted among non-blacks MDRD (S/P/Bld) [Vol rate/Area] 94 mL/min/{1.73_m2} Normal >60 [facility] Comment on above: Result Comment: mL/m in/1.73m2 CKD-EPI Creatinine Equation (2020) Performed By: #### L 500.4050, L100.0100, L501.9100, L505.5000 ####[facility] [address] [place], [address] Globulin (S) [Mass/Vol] 3.5 g/dL Normal 2.2-4.2 [facility] Comment on above: Performed By: #### L 500.4050, L100.0100, L501.9100, L505.5000 ####[facility] [address] [place], [address] Glucose [Mass/Vol] 99 mg/dL Normal 70-[address] [facility] Comment on above: Performed By: #### L 500.4050, L100.0100, L501.9100, L505.5000 ####[facility] [address] [place], [address] Potassium [Moles/Vol] 3.9 mmol/L Normal 3.3-5.1 [facility] Comment on above: Performed By: #### L 500.4050, L100.0100, L501.9100, L505.5000 ####[facility] [address] [place], [address] Sodium [Moles/Vol] 138 mmol/L Normal 133-[address] [facility] Comment on above: Performed By: #### L 500.4050, L100.0100, L501.9100, L505.5000 ####[facility] [address] [place], [address] T PROT 8.0 g/dL Normal 5.9-8.4 [facility] Comment on above: Performed By: #### L 500.4050, L100.0100, L501.9100, L505.5000 ####[facility] [address] [place], [address] Urea nitrogen [Mass/Vol] 10 mg/dL Normal 4-19 [facility] Comment on above: Performed By: #### L 500.4050, L100.0100, L501.9100, L505.5000 ####[facility] [address] [place], [address] Emergency Department Summary on 04-07-2025 Emergency Department Summary [facility] Medical Records Department [address] [place] [address] Emergency Department Summary 04/07/25 MR#: [id number] Acct: [id number] Name: ANNAMARIE LARIOS Rep #: [id number] : 1990 34 From: Jero Mancia MD PCP: Dr. Nikita Sorensen MD Status:ADM [id number] Jero Mancia MD on [...] any nausea or vomiting, no other symptoms. [facility] Medical History HTN (hypertension) Obesity Tobacco use [...] @ 15:59 by Annamarie Leyva) Hx of tympanostomy tubes Hx of [...] this time (more content not included)... Normal [facility] H AND P Exam - Hospitaliston 04-07-2025 H&P Exam - Hospitalist [facility] Medical Records Department [address] [place] [address] H P Exam - Hospitalist 04/07/25 1630 MR#: [id number] Acct: [id number] Name: ANNAMARIE LARIOS Rep #: [id number] : 1990 34 From: Xochilt De Jesus MD PCP: Dr. Nikita Sorensen MD Status:ADM IN [place] [id number] HPI - General General Date of Admission: 04/07/25 Date of Service: 04/07/25 Chief Complaint: Alcohol use disorder HPI Narrative ANNAMARIE LARIOS, is a 34 M with a history of depression, chewing tobacco use, and alcohol use disorder who presented to [facility] ED 04/07/2025 with family for admission [...] 293 and his timeline. Agreeable to admission [facility] Medical History Anxiety and depression COVID-19 HTN [...] of [place] (more content not included)... Normal [facility] Urine Drug Screen (VISTA)on 04-07-2025 AMPHETAMINES Negative Normal <1000 ng/mL [facility] Comment on above: Performed By: #### L 500.4050, L100.0100, L501.9100, L505.5000 ####[facility] [address] [place], [place], [address] BARBITIURATES Positive Normal < 200 ng/mL [facility] Comment on above: Result Comment: If c onfirmation testing is needed, a separate order will be required to send out testing to the reference laboratory. Performed By: #### L 500.4050, L100.0100, L501.9100, L505.5000 ####[facility] [address] [place], [address] BENZODIAZIPINE Negative Normal < 200 ng/mL [facility] Comment on above: Performed By: #### L 500.4050, L100.0100, L501.9100, L505.5000 ####[facility] [address] [place], [address] BUP Ur Drug Scr Negative Normal < 200 ng/mL [facility] Comment on above: Performed By: #### L 500.4050, L100.0100, L501.9100, L505.5000 ####[facility] [address] [facility] [address] COCAINE Negative Normal < 300 ng/mL [facility] Comment on above: Performed By: #### L 500.4050, L100.0100, L501.9100, L505.5000 ####[facility] [address] [place], [place], [phone] Fentanyl Negative Normal <5 ng/mL [facility] Comment on above: Result Comment: CONF [...] By: #### L 500.4050, L100.0100, L501.9100, L505.5000 ####[facility] [address] [place], [address] METHADONE Negative Normal < 300 ng/mL [facility] Comment on above: Performed By: #### L 500.4050, L100.0100, L501.9100, L505.5000 ####[facility] [address] [place] [id number] OPIATES Negative Normal < 300 ng/mL [facility] Comment on above: Performed By: #### L 500.4050, L100.0100, L501.9100, L505.5000 ####[facility] [address] [place], [address] OXYCODONE Negative Normal < 100 ng/mL [facility] Comment on above: Performed By: #### L 500.4050, L100.0100, L501.9100, L505.5000 ####[facility] [address] [place], [place], [phone] PCP Negative Normal < 25 ng/mL [facility] Comment on above: Performed By: #### L 500.4050, L100.0100, L501.9100, L505.5000 ####[facility] [address] [place] [address] THC Negative Normal < 50 ng/mL [facility] Comment on above: Performed By: #### L 500.4050, L100.0100, L501.9100, L505.5000 ####[facility] [address] [place], [place], [phone] Alcohol, Blood (Medical)-Ser umon 03-31-2025 SERUM ETOH 289.0 mg/dL High <=10.0 [facility] Comment on above: Result Comment: This test is for medical purposes only. The legal definition of intoxication varies according to local law. Performed By: #### L 505.5000, L100.0100, L501.5200, L501.9100, L500.3400, L500.2500 ####[facility] [address] [place], [address] Basic Metabolic Profile (BMP )on 03-31-2025 BUN/CRE 9.7 RATIO Low 10-20 [facility] Comment on above: Order Comment: Comme nts: may add to ED labs Performed By: #### L 505.5000, L100.0100, L501.5200, L501.9100, L500.3400, L500.2500 ####[facility] [address] [place], [address] Calcium [Mass/Vol] 9.3 mg/dL Normal 7.6-11.[address] [facility] Comment on above: Order Comment: Comme nts: may add to ED labs Performed By: #### L 505.5000, L100.0100, L501.5200, L501.9100, L500.3400, L500.2500 ####[facility] [address] [place], [address] Chloride [Moles/Vol] 100 mmol/L Normal 98-108 [facility] Comment on above: Order Comment: Comme nts: may add to ED labs Performed By: #### L 505.5000, L100.0100, L501.5200, L501.9100, L500.3400, L500.2500 ####[facility] [address] [place], [address] CO2 [Moles/Vol] 26.2 mmol/L Normal 21.0-32.0 [facility] Comment on above: Order Comment: Commgricelda nts: may add to ED labs Performed By: #### L 505.5000, L100.0100, L501.5200, L501.9100, L500.3400, L500.2500 ####[facility] [address] [place], [address] Creatinine [Mass/Vol] 1.01 mg/dL Normal 0.70-1.20 [facility] Comment on above: Order Comment: Commgricelda nts: may add to ED labs Performed By: #### L 505.5000, L100.0100, L501.5200, L501.9100, L500.3400, L500.2500 ####[facility] [address] [place], [address] ECRCL 116.66 ml/min Normal 50-250 [facility] Comment on above: Order Comment: Comme nts: may add to ED labs Performed By: #### L 505.5000, L100.0100, L501.5200, L501.9100, L500.3400, L500.2500 ####[facility] [address] [place], [address] GAP 18 High 5-15 [facility] Comment on above: Order Comment: Comme nts: may add to ED labs Performed By: #### L 505.5000, L100.0100, L501.5200, L501.9100, L500.3400, L500.2500 ####[facility] [address] [place], [address] GFR/1.73 sq M.predicted among non-blacks MDRD (S/P/Bld) [Vol rate/Area] 99 mL/min/{1.73_m2} Normal >60 [facility] Comment on above: Order Comment: Comme nts: may add to ED labs Result Comment: mL/m in/1.73m2 CKD-EPI Creatinine Equation (2020) Performed By: #### L 505.5000, L100.0100, L501.5200, L501.9100, L500.3400, L500.2500 ####[facility] [address] [place], [address] Glucose [Mass/Vol] 119 mg/dL High 70-[address] [facility] Comment on above: Order Comment: Comme nts: may add to ED labs Performed By: #### L 505.5000, L100.0100, L501.5200, L501.9100, L500.3400, L500.2500 ####[facility] [address] [place], [address] Potassium [Moles/Vol] 3.8 mmol/L Normal 3.3-5.1 [facility] Comment on above: Order Comment: Comme nts: may add to ED labs Performed By: #### L 505.5000, L100.0100, L501.5200, L501.9100, L500.3400, L500.2500 ####[facility] [address] [place], [address] Sodium [Moles/Vol] 143 mmol/L Normal 133-[address] [facility] Comment on above: Order Comment: Comme nts: may add to ED labs Performed By: #### L 505.5000, L100.0100, L501.5200, L501.9100, L500.3400, L500.2500 ####[facility] [address] [place], [address] Urea nitrogen [Mass/Vol] 10 mg/dL Normal 4-19 [facility] Comment on above: Order Comment: Comme nts: may add to ED labs Performed By: #### L 505.5000, L100.0100, L501.5200, L501.9100, L500.3400, L500.2500 ####[facility] [address] [place], [address] CBC W/Diff, Automatedon 10-0 SMEAR COMMENT SCANNED Normal [facility] Comment on above: Result Comment: LYMP HOCYTOSIS NOTED MONOCYTOSIS NOTED Performed By: #### L 505.5000, L100.0100, L501.5200, L501.9100, L500.3400, L500.2500 ####[facility] [address] [place], [address] Emergency Department Summary on 03-31-2025 Emergency Department Summary [facility] Medical Records Department [address] [place] [address] Emergency Department Summary 03/31/25 MR#: [id number] Acct: [id number] Name: ANNAMARIE LARIOS Rep #: [id number] : 1990 34 From: Deep Holman DO PCP: Dr. Nikita Sorensen MD Status:ADM IN Location: MS3 [id number] HPI History of Present Illness Chief Complaint: [...] chills. Patient denies any seizures or tremors. [facility] Medical History HTN (hypertension) Obesity Tobacco use [...] narrative: Medic (more content not included)... Normal [facility]P Exam - Hospitalist [facility] Medical Records Department [address] [place] [address] H P Exam - Hospitalist 03/31/252119 MR#: [id number] Acct: [id number] Name: ANNAMARIE LARIOS Rep #: [id number] : 1990 34 From: Jo-Ann Reynolds MD [...] for several years, HTN who presents to [facility] ED on 03/31/2025 secondary to requested alcohol [...] as at the alcohol level and UDS. [facility] Medical History HTN (hypertension) Obesity Tobacco use [...] Narrative Physic (more content not included)... Normal [facility] Liver Profileon 03-31-2025 Albumin [Mass/Vol] 4.5 g/dL Normal 3.5-5.[address] [facility] Comment on above: Order Comment: Comme nts: may add to ED labs Performed By: #### L 505.5000, L100.0100, L501.5200, L501.9100, L500.3400, L500.2500 ####[facility] [address] [place], [address] ALK PHOS 73 U/L Normal 40-129 [facility] Comment on above: Order Comment: Comme nts: may add to ED labs Performed By: #### L 505.5000, L100.0100, L501.5200, L501.9100, L500.3400, L500.2500 ####[facility] [address] [place], [address] ALT [Catalytic activity/Vol] 47 U/L Normal <=46 [facility] Comment on above: Order Comment: Comme nts: may add to ED labs Performed By: #### L 505.5000, L100.0100, L501.5200, L501.9100, L500.3400, L500.2500 ####[facility] [address] [place], [address] AST [Catalytic activity/Vol] 54 U/L High <=37 [facility] Comment on above: Order Comment: Comme nts: may add to ED labs Performed By: #### L 505.5000, L100.0100, L501.5200, L501.9100, L500.3400, L500.2500 ####[facility] [address] [place], [address] Bilirubin [Mass/Vol] 0.47 mg/dL Normal 0.00-1.30 [facility] Comment on above: Order Comment: Comme nts: may add to ED labs Performed By: #### L 505.5000, L100.0100, L501.5200, L501.9100, L500.3400, L500.2500 ####[facility] [address] [place], [address] Bilirubin.direct [Mass/Vol] 0.15 mg/dL Normal 0.00-0.30 [facility] Comment on above: Order Comment: Comme nts: may add to ED labs Performed By: #### L 505.5000, L100.0100, L501.5200, L501.9100, L500.3400, L500.2500 ####[facility] [address] [place], [address] Globulin (S) [Mass/Vol] 3.4 g/dL Normal 2.2-4.2 [facility] Comment on above: Order Comment: Comme nts: may add to ED labs Performed By: #### L 505.5000, L100.0100, L501.5200, L501.9100, L500.3400, L500.2500 ####[facility] [address] [place], [address] T PROT 7.9 g/dL Normal 5.9-8.4 [facility] Comment on above: Order Comment: Comme nts: may add to ED labs Performed By: #### L 505.5000, L100.0100, L501.5200, L501.9100, L500.3400, L500.2500 ####[facility] [address] [place], [address] Magnesiumon 03-31-2025 Magnesium [Mass/Vol] 2.2 mg/dL Normal 1.5-2.2 [facility] Comment on above: Order Comment: Comme nts: may add to ED labs Performed By: #### L 505.5000, L100.0100, L501.5200, L501.9100, L500.3400, L500.2500 ####[facility] [address] [place], [address] Phosphoruson 03-31-2025 Phosphate [Mass/Vol] 3.9 mg/dL Normal 2.7-4.5 [facility] Comment on above: Order Comment: Comme nts: May add to ED labs Performed By: #### L 501.2300 #### [facility] [address] [place], [address] Urine Drug Screen (VISTA)on 03-31-2025 AMPHETAMINES Negative Normal <1000 ng/mL [facility] Comment on above: Performed By: #### L 505.5000, L100.0100, L501.5200, L501.9100, L500.3400, L500.2500 ####[facility] [address] [place], [address] BARBITIURATES Negative Normal < 200 ng/mL [facility] Comment on above: Performed By: #### L 505.5000, L100.0100, L501.5200, L501.9100, L500.3400, L500.2500 ####[facility] [address] [place], [address] BENZODIAZIPINE Negative Normal < 200 ng/mL [facility] Comment on above: Performed By: #### L 505.5000, L100.0100, L501.5200, L501.9100, L500.3400, L500.2500 ####[facility] [address] [place], [address] BUP Ur Drug Scr Negative Normal < 200 ng/mL [facility] Comment on above: Performed By: #### L 505.5000, L100.0100, L501.5200, L501.9100, L500.3400, L500.2500 ####[facility] [address] [place], [address] COCAINE Negative Normal < 300 ng/mL [facility] Comment on above: Performed By: #### L 505.5000, L100.0100, L501.5200, L501.9100, L500.3400, L500.2500 ####[facility] [address] [place], [place], [phone] Fentanyl Negative Normal <5 ng/mL [facility] Comment on above: Result Comment: CONF [...] L 505.5000, L100.0100, L501.5200, L501.9100, L500.3400, L500.2500 ####[facility] [address] [place], [place], [phone] METHADONE Negative Normal < 300 ng/mL [facility] Comment on above: Performed By: #### L 505.5000, L100.0100, L501.5200, L501.9100, L500.3400, L500.2500 ####[facility] [address] [place], [address] OPIATES Negative Normal < 300 ng/mL [facility] Comment on above: Performed By: #### L 505.5000, L100.0100, L501.5200, L501.9100, L500.3400, L500.2500 ####[facility] [address] [place], [address] OXYCODONE Negative Normal < 100 ng/mL [facility] Comment on above: Performed By: #### L 505.5000, L100.0100, L501.5200, L501.9100, L500.3400, L500.2500 ####[facility] [address] [place], [address] PCP Negative Normal < 25 ng/mL [facility] Comment on above: Performed By: #### L 505.5000, L100.0100, L501.5200, L501.9100, L500.3400, L500.2500 ####[facility] [address] [place], [address] THC Negative Normal < 50 ng/mL [facility] Comment on above: Performed By: #### L 505.5000, L100.0100, L501.5200, L501.9100, L500.3400, L500.2500 ####[facility] [address] [place], [address] Discharge Instructionon 08-2 Discharge Instruction [facility] Medical Records Department [address] [place] [address] Instructions for Home/Discharge Instructions 02/16/25 1059 MR#: [id number] Acct: [id number] Name: ANNAMARIE LARIOS Rep #: [id number] : 1990 34 From: Angela Chau MD [...] Dr. Xochilt De Jesus MD Signed Normal [facility] Echocardiogram study reportO rdered By: Karo Cleaning on 02-15-2025 Study report [facility] Cardiovascular Services [address] [place] [address] Echo Complete 02/14/25 1454 MR#: [id number] Acct: [id number] Name: ANNAMARIE LARIOS Rep #:[id number] : 1990 34 From: Karo Espinoza Attending Dr: Dr. Angela Chau MD Status: ADM IN Ordering Dr: Angela Chau MD Date: 02/14/25 [place] [facility] [place]: M C Admitted: 02/13/25 Reason For [...] Dictated: 02/14/25 1454 Date Transcribed: 02/15/25 1202 Client Advisor: Signed [facility] Absolute lymphocyte countOrd ered By: Xochilt De Jesus on 02-14-2025 Lymphocytes Auto (Unsp spec) [#/Vol] 2.85 10*3/uL 0.83-4.51 [facility] Absolute neutrophil countOrd ered By: Xochilt De Jesus on 02-14-2025 Neutrophils (Bld) [#/Vol] 8.4 10*3/uL High 2.0-7.7 [facility] Anion gap in Serum or Plasma Ordered By: Xochilt De Jesus on 02-14-2025 Anion gap [Moles/Vol] 15 mmol/L 5-15 [facility] Automated lymphocyte count a s percentage of total leukocytesOrdered By: Xochilt De Jesus on 02-14-2025 Lymphocytes/100 WBC Auto (Unsp spec) 22.1 % 19-41 [facility] BUN/creatinine ratioOrdered By: Xochilt De Jesus on 02-14-2025 Urea nitrogen/Creatinine [Mass ratio] 9.8 mg/mg Low 10-20 [facility] Basophil percentageOrdered B y: Xochilt De Jesus on 02-14-2025 Basophils/100 WBC (Bld) 0.9 % 0-1 [facility] Bilirubin, totalOrdered By: Xochilt De Jesus on 02-14-2025 Bilirubin [Mass/Vol] 0.88 mg/dL 0.00-1.30 [facility] CBC W/Diff, Automatedon 01-28 Absolute Lymph 2.85 X10 3/uL Normal 0.83-4.51 [facility] Comment on above: Performed By: #### L 100.0100, L500.4050 ####[facility] [address] [place], [address] Absolute Neut 8.4 X10 3/uL High 2.0-7.7 [facility] Comment on above: Performed By: #### L 100.0100, L500.4050 ####[facility] [address] [place], [address] Basophils/100 WBC (Bld) 0.9 % Normal 0-1 [facility] Comment on above: Performed By: #### L 100.0100, L500.4050 ####[facility] [address] [place], [address] Eosinophils/100 WBC (Bld) 2.1 % Normal 0-5 [facility] Comment on above: Performed By: #### L 100.0100, L500.4050 ####[facility] [address] [place], [address] Erythrocyte distribution width (RBC) [Ratio] 15.3 % High 11.6-14.6 [facility] Comment on above: Performed By: #### L 100.0100, L500.4050 ####[facility] [address] [place], [address] Hematocrit (Bld) [Volume fraction] 43.7 % Normal 40-54 [facility] Comment on above: Performed By: #### L 100.0100, L500.4050 ####[facility] [address] [place], [address] Hemoglobin (Bld) [Mass/Vol] 14.8 g/dL Normal 13.0-16.5 [facility] Comment on above: Performed By: #### L 100.0100, L500.4050 ####[facility] [address] [place], [address] IG% 0.500 Normal 0.0-0.9 [facility] Comment on above: Result Comment: IG% - Immature Granulocytes (promyelocytes, myelocytes and metamyelocytes) > 1% indicates that a LEFT SHIFT is Present. Performed By: #### L 100.0100, L500.4050 ####[facility] [address] [place], [address] Lymphocytes/100 WBC (Bld) 22.1 % Normal 19-41 [facility] Comment on above: Performed By: #### L 100.0100, L500.4050 ####[facility] [address] [place], [address] MCH (RBC) [Entitic mass] 29.0 pg Normal 27.0-32.0 [facility] Comment on above: Performed By: #### L 100.0100, L500.4050 ####[facility] [address] [place], [address] MCHC (RBC) [Mass/Vol] 33.9 g/dL Normal 32-36 [facility] Comment on above: Performed By: #### L 100.0100, L500.4050 ####[facility] [address] [place], [address] MCV (RBC) [Entitic vol] 85.7 fL Normal 80-94 [facility] Comment on above: Performed By: #### L 100.0100, L500.4050 ####[facility] [address] [place], [address] Monocytes/100 WBC (Bld) 9.2 % Normal 0-10 [facility] Comment on above: Performed By: #### L 100.0100, L500.4050 ####[facility] [address] [place], [address] Neutrophils/100 WBC (Bld) 65.2 % Normal 47-70 [facility] Comment on above: Performed By: #### L 100.0100, L500.4050 ####[facility] [address] [place], [address] Nucleated RBC (Bld) [#/Vol] 0 10*3/uL Normal 0-5 [facility] Comment on above: Performed By: #### L 100.0100, L500.4050 ####[facility] [address] [place], [address] Platelet mean volume (Bld) [Entitic vol] 10.8 fL Normal 6.2-12.0 [facility] Comment on above: Performed By: #### L 100.0100, L500.4050 ####[facility] [address] [place], [address] Platelets (Bld) [#/Vol] 309 10*3/uL Normal 150-450 [facility] Comment on above: Performed By: #### L 100.0100, L500.4050 ####[facility] [address] [place], [address] RBC (Bld) [#/Vol] 5.10 10*6/uL Normal 4.6-6.2 [facility] Comment on above: Performed By: #### L 100.0100, L500.4050 ####[facility] [address] [place], [address] RDW SD 48.2 fl High 35.1-43.9 [facility] Comment on above: Performed By: #### L 100.0100, L500.4050 ####[facility] [address] [place], [address] WBC (Bld) [#/Vol] 12.9 10*3/uL High 4.4-11.0 [facility] Comment on above: Performed By: #### L 100.0100, L500.4050 ####[facility] [address] [place], [address] CTA Chest W/WO Contraston CTA Chest W/WO Contrast [facility] Imaging Services [address] [place] [address] CTA Chest W/WO Contrast MR#: [id number] Acct: [id number] Name: ANNAMARIE LARIOS Rep #: [id number] : 1990 M 34 From: Vinnie Barrett MD PCP: Dr. Nikita Sorensen MD Status: ADM IN Study: CTA Chest W/WO Contrast Date of Exam: 02/14/25 Exam# [id number] Ordering Dr: Angela Chau MD PROCEDURE: CTA [...] 2. Prominent diffuse hepatic steatosis. Reading Location: [id number] CC: Dr. Nikita Sorensen MD; Dr. Angela Chau MD Client Advisor: Signed Normal [facility] Carbon dioxide, total [Moles /volume] in Central venous bloodOrdered By: Xochilt De Jesus on 02-14-2025 CO2 [Moles/Vol] 26.4 mmol/L 21.0-32.0 [facility] Chloride assayOrdered By: Darlene De Jesus on 02-14-2025 Chloride [Moles/Vol] 98 mmol/L 98-108 [facility] Comprehensive Metabolic Prof ilon 02-14-2025 Albumin [Mass/Vol] 3.8 g/dL Normal 3.5-5.[address] [facility] Comment on above: Performed By: #### L 100.0100, L500.4050 ####[facility] [address] [place], [address] Albumin/Globulin [Mass ratio] 1.4 {ratio} Normal 0.9-2.4 [facility] Comment on above: Performed By: #### L 100.0100, L500.4050 ####[facility] [address] [place], [address] ALK PHOS 70 U/L Normal 40-129 [facility] Comment on above: Performed By: #### L 100.0100, L500.4050 ####[facility] [address] [place], [address] ALT [Catalytic activity/Vol] 145 U/L High <=46 [facility] Comment on above: Performed By: #### L 100.0100, L500.4050 ####[facility] [address] [place], [address] AST [Catalytic activity/Vol] 168 U/L High <=37 [facility] Comment on above: Performed By: #### L 100.0100, L500.4050 ####[facility] [address] [place], [address] Bilirubin [Mass/Vol] 0.88 mg/dL Normal 0.00-1.30 [facility] Comment on above: Performed By: #### L 100.0100, L500.4050 ####[facility] [address] [place], [address] BUN/CRE 9.8 RATIO Low 10-20 [facility] Comment on above: Performed By: #### L 100.0100, L500.4050 ####[facility] [address] [place], [address] Calcium [Mass/Vol] 8.3 mg/dL Normal 7.6-11.[address] [facility] Comment on above: Performed By: #### L 100.0100, L500.4050 ####[facility] [address] [place], [address] Chloride [Moles/Vol] 98 mmol/L Normal 98-108 [facility] Comment on above: Performed By: #### L 100.0100, L500.4050 ####[facility] [address] [place], [address] CO2 [Moles/Vol] 26.4 mmol/L Normal 21.0-32.0 [facility] Comment on above: Performed By: #### L 100.0100, L500.4050 ####[facility] [address] [place], [address] Creatinine [Mass/Vol] 0.91 mg/dL Normal 0.70-1.20 [facility] Comment on above: Performed By: #### L 100.0100, L500.4050 ####[facility] [address] [place], [address] ECRCL 124.65 ml/min Normal 50-250 [facility] Comment on above: Performed By: #### L 100.0100, L500.4050 ####[facility] [address] [place], [address] GAP 15 Normal 5-15 [facility] Comment on above: Performed By: #### L 100.0100, L500.4050 ####[facility] [address] [place], [address] GFR/1.73 sq M.predicted among non-blacks MDRD (S/P/Bld) [Vol rate/Area] 112 mL/min/{1.73_m2} Normal >60 [facility] Comment on above: Result Comment: mL/m in/1.73m2 CKD-EPI Creatinine Equation (2020) Performed By: #### L 100.0100, L500.4050 ####[facility] [address] [place], [address] Globulin (S) [Mass/Vol] 2.7 g/dL Normal 2.2-4.2 [facility] Comment on above: Performed By: #### L 100.0100, L500.4050 ####[facility] [address] [place], [address] Glucose [Mass/Vol] 80 mg/dL Normal 70-[address] [facility] Comment on above: Performed By: #### L 100.0100, L500.4050 ####[facility] [address] [place], [address] Potassium [Moles/Vol] 3.6 mmol/L Normal 3.3-5.1 [facility] Comment on above: Performed By: #### L 100.0100, L500.4050 ####[facility] [address] [place], [address] Sodium [Moles/Vol] 139 mmol/L Normal 133-[address] [facility] Comment on above: Performed By: #### L 100.0100, L500.4050 ####[facility] [address] [place], [address] T PROT 6.5 g/dL Normal 5.9-8.4 [facility] Comment on above: Performed By: #### L 100.0100, L500.4050 ####[facility] [address] [place], [address] Urea nitrogen [Mass/Vol] 9 mg/dL Normal 4-19 [facility] Comment on above: Performed By: #### L 100.0100, L500.4050 ####[facility] [address] [place], [address] D-Dimer Quantitative (DVT/PE )on 02-14-2025 D-DIMER QUANT 2.65 FEU/ug/m Invalid Interpretation Code 0.27-0.49 [facility] Comment on above: Result Comment: D-Di bhargav ELEVATED (>0.49): Additional studies and clinical assessments are indicated to conclude diagnosis of: Deep Vein Thrombosis (DVT) or Pulmonary Embolism (PE) CRITICAL VALUE CALLED TO KAREEM GONZALEZ 02/14/25 Jesus Flor. RESULTS READ BACK BY SAME. Performed By: #### L 300.8000, L501.9520 ####[facility] [address] [place], [address] Echo Completeon 02-14-2025 Echo Complete [facility] [address] [place] [address] Echo Complete 02/14/25 1454 MR#: [id number] Acct: [id number] Name: ANNAMARIE LARIOS Rep #: [id number] : 1990 34 From: Karo Cleaning MD Attending Dr: Dr. Angela Chau MD Status: AD M IN Ordering Dr: Angela Chau MD Date: 02/14/25 Location: DC3 Sex: M C Admitted: 02/13/25 Reason For [...] Dictated: 02/14/25 1454 Date Transcribed: 02/15/25 1202 Client Advisor: Signed Normal [facility] Eosinophil percentageOrdered By: Xochilt De Jesus on 02-14-2025 Eosinophils/100 WBC (Bld) 2.1 % 0-5 [facility] Erythrocyte distribution wid th ratioOrdered By: Xochilt De Jesus on 02-14-2025 Erythrocyte distribution width (RBC) [Ratio] 15.3 % High 11.6-14.6 [facility] Erythrocyte distribution wid th standard deviationOrdered By: Xochilt De Jesus on 02-14-2025 Erythrocyte distribution width (RBC) [Ratio] 48.2 fl High 35.1-43.9 [facility] Glomerular filtration rate ( GFR) estimation/1.73 sq m using serum, plasma, or whole bOrdered By: Xochilt De Jesus on 02-14-2025 GFR/1.73 sq M.predicted among non-blacks MDRD (S/P/Bld) [Vol rate/Area] 112 mL/min/{1.73_m2} >60 [facility] Comment on above: mL/min/1.73m2 CKD-EP I Creatinine Equation (2020) Hematocrit Auto (Bld) [Volum e fraction]Ordered By: Xochilt De Jesus on 02-14-2025 Hematocrit (Bld) [Volume fraction] 43.7 % 40-54 [facility] Hemoglobin measurementOrdere d By: Xochilt De Jesus on 02-14-2025 Hemoglobin (Bld) [Mass/Vol] 14.8 g/dL 13.0-16.5 [facility] Immature granulocytes/100 WB C Auto (Bld)Ordered By: Xochilt De Jesus on 02-14-2025 Immature granulocytes/100 WBC (Bld) 0.500 % 0.0-0.9 [facility] Comment on above: IG% - Immature Granu locytes (promyelocytes, myelocytes and metamyelocytes) > 1% indicates that a LEFT SHIFT is Present. Laboratory - Chemistry and C hemistry - challengeOrdered By: Xochilt De Jesus on 02-14-2025 AST [Catalytic activity/Vol] 168 U/L High <38 [facility] MCV (mean corpuscular volume ) determinationOrdered By: Xochilt De Jesus on 02-14-2025 MCV (RBC) [Entitic vol] 85.7 fL 80-94 [facility] Mean corpuscular hemoglobin (MCH) determinationOrdered By: Xochilt De Jesus on 02-14-2025 MCH (RBC) [Entitic mass] 29.0 pg 27.0-32.0 [facility] Mean corpuscular hemoglobin concentration (MCHC) determinationOrdered By: Xochilt De Jesus on 02-14-2025 MCHC (RBC) [Mass/Vol] 33.9 g/dL 32-36 [facility] Mean platelet volume determi nationOrdered By: Xochilt De Jesus on 02-14-2025 Platelet mean volume (Bld) [Entitic vol] 10.8 fL 6.2-12.0 [facility] Monocyte percentageOrdered B y: Xochilt De Jesus on 02-14-2025 Monocytes/100 WBC (Bld) 9.2 % 0-10 [facility] Neutrophil percentageOrdered By: Xochilt De Jesus on 02-14-2025 Neutrophils/100 WBC (Bld) 65.2 % 47-70 [facility] Nucleated red blood cell per centageOrdered By: Xochilt De Jesus on 02-14-2025 Nucleated RBC/100 WBC (Bld) [Ratio] 0 % 0-5 [facility] Platelet countOrdered By: Darlene De Jesus on 02-14-2025 Platelets (Bld) [#/Vol] 309 10*3/uL 150-450 [facility] Potassium measurement (mass/ volume)Ordered By: Xochilt De Jesus on 02-14-2025 Potassium (Unsp spec) [Mass/Vol] 3.6 mmol/L 3.3-5.1 [facility] RBC Auto (Bld) [#/Vol]Ordere d By: Xochilt De Jesus on 02-14-2025 RBC (Bld) [#/Vol] 5.10 10*6/uL 4.6-6.2 [facility] Serum creatinine measurement (mass/volume)Ordered By: Xochilt De Jesus on 02-14-2025 Creatinine [Mass/Vol] 0.91 mg/dL 0.70-1.20 [facility] Serum globulin measurementOr dered By: Xochilt De Jesus on 02-14-2025 Globulin (S) [Mass/Vol] 2.7 g/dL 2.2-4.2 [facility] Serum glucose measurement (m ass/volume)Ordered By: Xochilt De Jesus on 02-14-2025 Glucose [Mass/Vol] 80 mg/dL 70-[address] [facility] Serum or plasma alanine murillo otransferase (ALT) measurementOrdered By: Xochilt De Jesus on 02-14-2025 ALT [Catalytic activity/Vol] 145 U/L High <47 [facility] Serum or plasma albumin long urement (mass/volume)Ordered By: Xochilt De Jesus on 02-14-2025 Albumin [Mass/Vol] 3.8 g/dL 3.5-5.[address] [facility] Serum or plasma albumin/glob ulin mass ratioOrdered By: Xochilt De Jesus on 02-14-2025 Albumin/Globulin [Mass ratio] 1.4 {ratio} 0.9-2.4 [facility] Serum or plasma alkaline gunnar sphatase measurementOrdered By: Xochilt De Jesus on 02-14-2025 ALP [Catalytic activity/Vol] 70 U/L 40-129 [facility] Serum or plasma calcium long urement (mass/volume)Ordered By: Xochilt De Jesus on 02-14-2025 Calcium [Mass/Vol] 8.3 mg/dL 7.6-11.[address] [facility] Serum or plasma urea nitroge n measurement (mass/volume)Ordered By: Xochilt De Jesus on 02-14-2025 Urea nitrogen [Mass/Vol] 9 mg/dL 4-19 [facility] Sodium levelOrdered By: Harman De Jesus on 02-14-2025 Sodium [Moles/Vol] 139 mmol/L 133-[address] [facility] TSH DL <= 0.005 mIU/L QnOrde red By: Angela Chau on 02-14-2025 TSH Qn 3.370 uIU/mL 0.300-4.200 [facility] Thyroid Stim Hormone (TSH)on 02-14-2025 TSH 3.370 uIU/mL Normal 0.300-4.200 [facility] Comment on above: Performed By: #### L 300.8000, L501.9520 ####[facility] [address] [place], [place], [id number] Total proteinOrdered By: Nesha De Jesus on 02-14-2025 Protein [Mass/Vol] 6.5 g/dL 5.9-8.[address] [facility] White blood cell (WBC) count Ordered By: Xochilt De Jesus on 02-14-2025 WBC (Bld) [#/Vol] 12.9 10*3/uL High 4.4-11.0 [facility] Absolute lymphocyte countOrd ered By: Deep Holman on 02-13-2025 Lymphocytes Auto (Unsp spec) [#/Vol] 2.77 10*3/uL 0.83-4.51 [facility] Absolute neutrophil countOrd ered By: Deep Holman on 02-13-2025 Neutrophils (Bld) [#/Vol] 8.4 10*3/uL High 2.0-7.7 [facility] Alcohol, Blood (Medical)-Ser umon 02-13-2025 SERUM ETOH 321.0 mg/dL Invalid Interpretation Code <=10.0 [facility] Comment on above: Result Comment: Crit ical Result(s) Called [facility] at: 1626 by: DALY??Results read back by same. This test is for medical purposes only. The legal definition of intoxication varies according to local law. Performed By: #### L 100.0100, L501.9100, L505.5000 #### [facility] [address] [place], [place], [id number] Amphetamine detection with 1 000 ng/mL as cutoffOrdered By: Deep Holman on 02-13-2025 Amphetamines Screen method >1000 ng/mL Ql (U) Negative < 200 ng/mL [facility] Anion gap in Serum or Plasma Ordered By: Deep Holman on 02-13-2025 Anion gap [Moles/Vol] 24 mmol/L High 5-15 [facility] Automated lymphocyte count a s percentage of total leukocytesOrdered By: Deep Holman on 02-13-2025 Lymphocytes/100 WBC Auto (Unsp spec) 22.1 % 19-41 [facility] BUN/creatinine ratioOrdered By: Deep Holman on 02-13-2025 Urea nitrogen/Creatinine [Mass ratio] 12.4 mg/mg 10-20 [facility] Basophil percentageOrdered B y: Deep Holman on 02-13-2025 Basophils/100 WBC (Bld) 1.2 % High 0-1 [facility] Bilirubin, totalOrdered By: Deep Holman on 02-13-2025 Bilirubin [Mass/Vol] 0.61 mg/dL 0.00-1.30 [facility] CBC W/Diff, Automatedon 01-28 Absolute Lymph 2.77 X10 3/uL Normal 0.83-4.51 [facility] Comment on above: Performed By: #### L 100.0100, L501.9100, L505.5000 #### [facility] [address] [place], [address] Absolute Neut 8.4 X10 3/uL High 2.0-7.7 [facility] Comment on above: Performed By: #### L 100.0100, L501.9100, L505.5000 #### [facility] [address] [place], [address] Basophils/100 WBC (Bld) 1.2 % High 0-1 [facility] Comment on above: Performed By: #### L 100.0100, L501.9100, L505.5000 #### [facility] [address] [place], [address] Eosinophils/100 WBC (Bld) 0.1 % Normal 0-5 [facility] Comment on above: Performed By: #### L 100.0100, L501.9100, L505.5000 #### [facility] [address] [place], [address] Erythrocyte distribution width (RBC) [Ratio] 15.1 % High 11.6-14.6 [facility] Comment on above: Performed By: #### L 100.0100, L501.9100, L505.5000 #### [facility] [address] [place], [address] Hematocrit (Bld) [Volume fraction] 46.6 % Normal 40-54 [facility] Comment on above: Performed By: #### L 100.0100, L501.9100, L505.5000 #### [facility] [address] [place], [address] Hemoglobin (Bld) [Mass/Vol] 16.2 g/dL Normal 13.0-16.5 [facility] Comment on above: Performed By: #### L 100.0100, L501.9100, L505.5000 #### [facility] [address] [place], [address] IG% 0.400 Normal 0.0-0.9 [facility] Comment on above: Result Comment: IG% - Immature Granulocytes (promyelocytes, myelocytes and metamyelocytes) > 1% indicates that a LEFT SHIFT is Present. Performed By: #### L 100.0100, L501.9100, L505.5000 #### [facility] [address] [place], [address] Lymphocytes/100 WBC (Bld) 22.1 % Normal 19-41 [facility] Comment on above: Performed By: #### L 100.0100, L501.9100, L505.5000 #### [facility] [address] [place], [address] MCH (RBC) [Entitic mass] 29.3 pg Normal 27.0-32.0 [facility] Comment on above: Performed By: #### L 100.0100, L501.9100, L505.5000 #### [facility] [address] [place], [address] MCHC (RBC) [Mass/Vol] 34.8 g/dL Normal 32-36 [facility] Comment on above: Performed By: #### L 100.0100, L501.9100, L505.5000 #### [facility] [address] [place], [address] MCV (RBC) [Entitic vol] 84.3 fL Normal 80-94 [facility] Comment on above: Performed By: #### L 100.0100, L501.9100, L505.5000 #### [facility] [address] [place], [address] Monocytes/100 WBC (Bld) 9.5 % Normal 0-10 [facility] Comment on above: Performed By: #### L 100.0100, L501.9100, L505.5000 #### [facility] [address] [place], [address] Neutrophils/100 WBC (Bld) 66.7 % Normal 47-70 [facility] Comment on above: Performed By: #### L 100.0100, L501.9100, L505.5000 #### [facility] [address] [place], [address] Nucleated RBC (Bld) [#/Vol] 0 10*3/uL Normal 0-5 [facility] Comment on above: Performed By: #### L 100.0100, L501.9100, L505.5000 #### [facility] [address] [place], [address] Platelet mean volume (Bld) [Entitic vol] 10.1 fL Normal 6.2-12.0 [facility] Comment on above: Performed By: #### L 100.0100, L501.9100, L505.5000 #### [facility] [address] [place], [address] Platelets (Bld) [#/Vol] 354 10*3/uL Normal 150-450 [facility] Comment on above: Performed By: #### L 100.0100, L501.9100, L505.5000 #### [facility] [address] [place], [address] RBC (Bld) [#/Vol] 5.53 10*6/uL Normal 4.6-6.2 [facility] Comment on above: Performed By: #### L 100.0100, L501.9100, L505.5000 #### [facility] [address] [place], [address] RDW SD 46.5 fl High 35.1-43.9 [facility] Comment on above: Performed By: #### L 100.0100, L501.9100, L505.5000 #### [facility] [address] [place], [address] WBC (Bld) [#/Vol] 12.5 10*3/uL High 4.4-11.0 [facility] Comment on above: Performed By: #### L 100.0100, L501.9100, L505.5000 #### [facility] [address] [place], [address] Carbon dioxide, total [Moles /volume] in Central venous bloodOrdered By: Deep Holman on 02-13-2025 CO2 [Moles/Vol] 21.8 mmol/L 21.0-32.0 [facility] Chloride assayOrdered By: Michael Holman on 02-13-2025 Chloride [Moles/Vol] 92 mmol/L Low 98-108 [facility] Comprehensive Metabolic Prof ilon 02-13-2025 Albumin [Mass/Vol] 4.4 g/dL Normal 3.5-5.[address] [facility] Comment on above: Performed By: #### L 500.4050 #### [facility] [address] [place], [address] Albumin/Globulin [Mass ratio] 1.3 {ratio} Normal 0.9-2.4 [facility] Comment on above: Performed By: #### L 500.4050 #### [facility] [address] [place], [address] ALK PHOS 91 U/L Normal 40-129 [facility] Comment on above: Performed By: #### L 500.4050 #### [facility] [address] [place], [address] ALT [Catalytic activity/Vol] 188 U/L High <=46 [facility] Comment on above: Performed By: #### L 500.4050 #### [facility] [address] [place], [address] AST [Catalytic activity/Vol] 227 U/L High <=37 [facility] Comment on above: Performed By: #### L 500.4050 #### [facility] [address] [place], [address] Bilirubin [Mass/Vol] 0.61 mg/dL Normal 0.00-1.30 [facility] Comment on above: Performed By: #### L 500.4050 #### [facility] [address] [place], [address] BUN/CRE 12.4 RATIO Normal 10-20 [facility] Comment on above: Performed By: #### L 500.4050 #### [facility] [address] [place], [address] Calcium [Mass/Vol] 8.8 mg/dL Normal 7.6-11.[address] [facility] Comment on above: Performed By: #### L 500.4050 #### [facility] [address] [place], [address] Chloride [Moles/Vol] 92 mmol/L Low 98-108 [facility] Comment on above: Performed By: #### L 500.4050 #### [facility] [address] [place], [address] CO2 [Moles/Vol] 21.8 mmol/L Normal 21.0-32.0 [facility] Comment on above: Performed By: #### L 500.4050 #### [facility] [address] [place], [address] Creatinine [Mass/Vol] 0.98 mg/dL Normal 0.70-1.20 [facility] Comment on above: Performed By: #### L 500.4050 #### [facility] [address] [place], [address] ECRCL 115.98 ml/min Normal 50-250 [facility] Comment on above: Performed By: #### L 500.4050 #### [facility] [address] [place], [address] GAP 24 High 5-15 [facility] Comment on above: Performed By: #### L 500.4050 #### [facility] [address] [place], [address] GFR/1.73 sq M.predicted among non-blacks MDRD (S/P/Bld) [Vol rate/Area] 103 mL/min/{1.73_m2} Normal >60 [facility] Comment on above: Result Comment: mL/m in/1.73m2 CKD-EPI Creatinine Equation (2020) Performed By: #### L 500.4050 #### [facility] [address] [place], [address] Globulin (S) [Mass/Vol] 3.5 g/dL Normal 2.2-4.2 [facility] Comment on above: Performed By: #### L 500.4050 #### [facility] [address] [place], [address] Glucose [Mass/Vol] 92 mg/dL Normal 70-[address] [facility] Comment on above: Performed By: #### L 500.4050 #### [facility] [address] [place], [address] Potassium [Moles/Vol] 3.7 mmol/L Normal 3.3-5.1 [facility] Comment on above: Performed By: #### L 500.4050 #### [facility] [address] [place], [address] Sodium [Moles/Vol] 137 mmol/L Normal 133-[address] [facility] Comment on above: Performed By: #### L 500.4050 #### [facility] [address] [place], [address] T PROT 7.9 g/dL Normal 5.9-8.4 [facility] Comment on above: Performed By: #### L 500.4050 #### [facility] [address] [place], [address] Urea nitrogen [Mass/Vol] 12 mg/dL Normal 4-19 [facility] Comment on above: Performed By: #### L 500.4050 #### [facility] [address] [place], [address] Emergency Department Summary on 02-13-2025 Emergency Department Summary [facility] Medical Records Department [address] [place] [address] Emergency Department Summary 02/13/25 MR#: [id number] Acct: [id number] Name: ANNAMARIE LARIOS Rep #: [id number] : 1990 34 From: Deep Holman DO PCP: Dr. Nikita Sorensen MD Status:ADM IN Location: MS3 HI889-1 HPI History of Present Illness Chief Complaint: [...] worse. Patient does not take any anticoagulants. [facility] Medical History (Updated 02/13/25 @ 18:21 [...] level will (more content not included)... Normal [facility] Eosinophil percentageOrdered By: Deep Holman on 02-13-2025 Eosinophils/100 WBC (Bld) 0.1 % 0-5 [facility] Erythrocyte distribution wid th ratioOrdered By: Deep Holman on 02-13-2025 Erythrocyte distribution width (RBC) [Ratio] 15.1 % High 11.6-14.6 [facility] Erythrocyte distribution wid th standard deviationOrdered By: Deep Holman on 02-13-2025 Erythrocyte distribution width (RBC) [Ratio] 46.5 fl High 35.1-43.9 [facility] Glomerular filtration rate ( GFR) estimation/1.73 sq m using serum, plasma, or whole bOrdered By: Deep Holman on 02-13-2025 GFR/1.73 sq M.predicted among non-blacks MDRD (S/P/Bld) [Vol rate/Area] 103 mL/min/{1.73_m2} >60 [facility] Comment on above: mL/min/1.73m2 CKD-EP I Creatinine Equation (2020) H AND P Exam - [facility] 02-13-2025 H&P Exam - Hospitalist [facility] Medical Records Department [address] [place] [address] H P Exam - Hospitalist 02/13/25 1848 MR#: [id number] Acct: [id number] Name: ANNAMARIE LARIOS Rep #: [id number] : 1990 34 From: Xochilt De Jesus MD PCP: Dr. Nikita Sorensen MD Status:ADM IN [place] [facility] [place] HPI - General General Date of Admission: 02/13/25 Date of Service: 02/13/25 Chief Complaint: Right eye redness and alcohol use HPI Narrative ANNAMARIE LARIOS, is a 34 M with a history of depression, chewing tobacco use, remote history of alcohol use presented [facility] ED 02/13/2025 initially reporting some redness [...] he just does not take them out. [facility] Medical History (Updated 02/13/25 @ 18:21 [...] neurological deficits (more content not included)... Normal [facility] Hematocrit Auto (Bld) [Volum e fraction]Ordered By: Deep Holman on 02-13-2025 Hematocrit (Bld) [Volume fraction] 46.6 % 40-54 [facility] Hemoglobin measurementOrdere d By: Deep Holman on 02-13-2025 Hemoglobin (Bld) [Mass/Vol] 16.2 g/dL 13.0-16.5 [facility] Immature granulocytes/100 WB C Auto (Bld)Ordered By: Deep Holman on 02-13-2025 Immature granulocytes/100 WBC (Bld) 0.400 % 0.0-0.9 [facility] Comment on above: IG% - Immature Granu locytes (promyelocytes, myelocytes and metamyelocytes) > 1% indicates that a LEFT SHIFT is Present. Laboratory - Chemistry and C hemistry - challengeOrdered By: Deep Holman on 02-13-2025 AST [Catalytic activity/Vol] 227 U/L High <38 [facility] MCV (mean corpuscular volume ) determinationOrdered By: Deep Holman on 02-13-2025 MCV (RBC) [Entitic vol] 84.3 fL 80-94 [facility] Mean corpuscular hemoglobin (MCH) determinationOrdered By: Deep Holman on 02-13-2025 MCH (RBC) [Entitic mass] 29.3 pg 27.0-32.0 [facility] Mean corpuscular hemoglobin concentration (MCHC) determinationOrdered By: Deep Holman on 02-13-2025 MCHC (RBC) [Mass/Vol] 34.8 g/dL 32-36 [facility] Mean platelet volume determi nationOrdered By: Deep Holman on 02-13-2025 Platelet mean volume (Bld) [Entitic vol] 10.1 fL 6.2-12.0 [facility] Monocyte percentageOrdered B y: Deep Holman on 02-13-2025 Monocytes/100 WBC (Bld) 9.5 % 0-10 [facility] Neutrophil percentageOrdered By: Deep Holman on 02-13-2025 Neutrophils/100 WBC (Bld) 66.7 % 47-70 [facility] No Panel InformationOrdered By: Deep Holman on 02-13-2025 Urine Buprenorphine Qualitative Negative < 200 ng/mL [facility] Urine Oxycodone Screen Negative < 100 ng/mL [facility] Nucleated red blood cell per centageOrdered By: Deep Holman on 02-13-2025 Nucleated RBC/100 WBC (Bld) [Ratio] 0 % 0-5 [facility] Platelet countOrdered By: Michael Holman on 02-13-2025 Platelets (Bld) [#/Vol] 354 10*3/uL 150-450 [facility] Potassium measurement (mass/ volume)Ordered By: Deep Holman on 02-13-2025 Potassium (Unsp spec) [Mass/Vol] 3.7 mmol/L 3.3-5.1 [facility] Quantitative urine opiates m easurementOrdered By: Deep Holman on 02-13-2025 Opiates Ql (U) Negative < 300 ng/mL [facility] RBC Auto (Bld) [#/Vol]Ordere d By: Deep Holman on 02-13-2025 RBC (Bld) [#/Vol] 5.53 10*6/uL 4.6-6.2 [facility] Screening urine fentanyl warren surementOrdered By: Deep Holman on 02-13-2025 fentaNYL Screen Ql (U) Negative [facility] Serum creatinine measurement (mass/volume)Ordered By: Deep Holman on 02-13-2025 Creatinine [Mass/Vol] 0.98 mg/dL 0.70-1.20 [facility] Serum globulin measurementOr dered By: Deep Holman on 02-13-2025 Globulin (S) [Mass/Vol] 3.5 g/dL 2.2-4.2 [facility] Serum glucose measurement (m ass/volume)Ordered By: Deep Holman on 02-13-2025 Glucose [Mass/Vol] 92 mg/dL 70-[address] [facility] Serum or plasma alanine murillo otransferase (ALT) measurementOrdered By: Deep Holman on 02-13-2025 ALT [Catalytic activity/Vol] 188 U/L High <47 [facility] Serum or plasma albumin long urement (mass/volume)Ordered By: Deep Holman on 02-13-2025 Albumin [Mass/Vol] 4.4 g/dL 3.5-5.[address] [facility] Serum or plasma albumin/glob ulin mass ratioOrdered By: Deep Holman on 02-13-2025 Albumin/Globulin [Mass ratio] 1.3 {ratio} 0.9-2.4 [facility] Serum or plasma alkaline gunnar sphatase measurementOrdered By: Deep Holman on 02-13-2025 ALP [Catalytic activity/Vol] 91 U/L 40-129 [facility] Serum or plasma calcium long urement (mass/volume)Ordered By: Deep Holman on 02-13-2025 Calcium [Mass/Vol] 8.8 mg/dL 7.6-11.[address] [facility] Serum or plasma ethanol long urement (mass/volume)Ordered By: Deep Holman on 02-13-2025 Ethanol [Mass/Vol] 321.0 mg/dL High <10.1 [facility] Comment on above: Critical Result(s) Heraclio GRADY at: 1626 by: DALY Results read back by same.This test is for medical purposes only. The legal definition of intoxication varies according to local law. Serum or plasma urea nitroge n measurement (mass/volume)Ordered By: Deep Holmna on 02-13-2025 Urea nitrogen [Mass/Vol] 12 mg/dL 4-19 [facility] Sodium levelOrdered By: Deep Holman on 02-13-2025 Sodium [Moles/Vol] 137 mmol/L 133-[address] [facility] Total proteinOrdered By: Rakel Holman on 02-13-2025 Protein [Mass/Vol] 7.9 g/dL 5.9-8.[address] [facility] Urine Drug Screen (VISTA)on 02-13-2025 AMPHETAMINES Negative Normal <1000 ng/mL [facility] Comment on above: Performed By: #### L 100.0100, L501.9100, L505.5000 #### [facility] [address] [place] [address] BARBITIURATES Negative Normal < 200 ng/mL [facility] Comment on above: Performed By: #### L 100.0100, L501.9100, L505.5000 #### [facility] [address] [place] [address] BENZODIAZIPINE Negative Normal < 200 ng/mL [facility] Comment on above: Performed By: #### L 100.0100, L501.9100, L505.5000 #### [facility] [address] [place] [address] BUP Ur Drug Scr Negative Normal < 200 ng/mL [facility] Comment on above: Performed By: #### L 100.0100, L501.9100, L505.5000 #### [facility] [address] [place], [address] COCAINE Negative Normal < 300 ng/mL [facility] Comment on above: Performed By: #### L 100.0100, L501.9100, L505.5000 #### [facility] [address] [place], [address] Fentanyl Negative Normal [facility] Comment on above: Performed By: #### L 100.0100, L501.9100, L505.5000 #### [facility] [address] [place], [address] METHADONE Negative Normal < 300 ng/mL [facility] Comment on above: Performed By: #### L 100.0100, L501.9100, L505.5000 #### [facility] [address] [place], [address] OPIATES Negative Normal < 300 ng/mL [facility] Comment on above: Performed By: #### L 100.0100, L501.9100, L505.5000 #### [facility] [address] [place], [address] OXYCODONE Negative Normal < 100 ng/mL [facility] Comment on above: Performed By: #### L 100.0100, L501.9100, L505.5000 #### [facility] [address] [place], [address] PCP Negative Normal < 25 ng/mL [facility] Comment on above: Performed By: #### L 100.0100, L501.9100, L505.5000 #### [facility] [address] [place], [address] THC Positive Normal < 50 ng/mL [facility] Comment on above: Result Comment: If c onfirmation testing is needed, a separate order will be required to send out testing to the reference laboratory. Performed By: #### L 100.0100, L501.9100, L505.5000 #### [facility] [place], [address] Urine benzodiazepine levelOr dered By: Deep Holman on 02-13-2025 Benzodiazepines Ql (U) Negative < 200 ng/mL [facility] Urine cocaine levelOrdered B y: Deep Holman on 02-13-2025 Cocaine Ql (U) Negative < 300 ng/mL [facility] Urine gmojk-1-jffevinklinuop abinol (THC) measurementOrdered By: Deep Holman on 02-13-2025 Cannabinoids Screen Ql (U) Positive < 50 ng/mL [facility] Comment on above: If confirmation test ing is needed, a separate order will be required to send out testing to the reference laboratory. Urine phencyclidine (PCP) de tectionOrdered By: Deep Holman on 02-13-2025 Phencyclidine Ql (U) Negative < 25 ng/mL [facility] White blood cell (WBC) count Ordered By: Deep Holman on 02-13-2025 WBC (Bld) [#/Vol] 12.5 10*3/uL High 4.4-11.0 [facility] CBC W Auto Differential pane l (Bld)on 08-04-2024 Basophils (Bld) [#/Vol] 0.2 10*3/uL 0.0 - 0.2 10*3/uL [facility] Basophils/100 WBC (Bld) 2.2 % High 0.0 - 2.0 % [facility] Eosinophils (Bld) [#/Vol] 0 10*3/uL 0.0 - 0.5 10*3/uL [facility] Eosinophils/100 WBC (Bld) 0.4 % 0.0 - 6.0 % [facility] Erythrocyte distribution width (RBC) [Ratio] 14.6 % 11.5 - 15.0 % [facility] Hematocrit (Bld) [Volume fraction] 51 % 40.0 - 52.0 % [facility] Hemoglobin (Bld) [Mass/Vol] 17.1 g/dL 13.0 - 18.0 g/dL [facility] Immature granulocytes (Bld) [#/Vol] 0 10*3/uL NINF - 0.1 10*3/uL [facility] Immature granulocytes/100 WBC (Bld) 0.2 % 0.0 - 2.0 % [facility] Interpretation and review of laboratory results Abnormal [facility] Lymphocytes (Bld) [#/Vol] 3 10*3/uL 1.0 - 4.3 10*3/uL [facility] Lymphocytes/100 WBC (Bld) 37.5 % 15.0 - 45.0 % [facility] MCH (RBC) [Entitic mass] 28.3 pg 26. 0 - 34.0 pg [facility] MCHC (RBC) [Mass/Vol] 33.5 % 30.5 - 36.0 % [facility] MCV (RBC) [Entitic vol] 84.4 fL 77.0 - 99.0 fL [facility] Monocytes (Bld) [#/Vol] 0.8 10*3/uL 0.0 - 0.9 10*3/uL [facility] Monocytes/100 WBC (Bld) 10.2 % 5.0 - 13.0 % [facility] Neutrophils (Bld) [#/Vol] 4 10*3/uL 1.8 - 7.5 10*3/uL [facility] Neutrophils/100 WBC (Bld) 49.5 % 38.0 - 82.0 % [facility] Nucleated RBC/100 WBC (Bld) [Ratio] 0 % [facility] Platelet mean volume (Bld) [Entitic vol] 10.3 fL 9.0 - 12.7 fL [facility] Platelets (Bld) [#/Vol] 399 10*3/uL 140 - 440 10*3/uL [facility] RBC (Bld) [#/Vol] 6.04 10*6/uL High 4.40 - 5.9 0 10*6/uL [facility] WBC (Bld) [#/Vol] 8.1 10*3/uL 3.6 - 10.7 10*3/uL [facility] CBC WITH AUTO DIFFERENTIALon 08-04-2024 Basophils (Bld) [#/Vol] 0.2 10*3/uL Normal 0.0-0.2 [facility] Comment on above: Performed By: #### L [id number] ####Contract Technician: YOHANA JARQUIN ([id number])[facility] ([address] Basophils/100 WBC (Bld) 2.2 % High 0.0-2.0 [facility] Comment on above: Performed By: #### L [id number] ####Contract Technician: YOHANA JARQUIN ([id number])[facility])[address] [place] [address] Eosinophils (Bld) [#/Vol] 0.0 10*3/uL Normal 0.0-0.5 [facility] [facility] Comment on above: Performed By: #### L [id number] ####Contract Technician: YOHANA JARQUIN ([id number])[facility])[address] [place] [address] Eosinophils/100 WBC (Bld) 0.4 % Normal 0.0-6.0 [facility] Comment on above: Performed By: #### L [id number] ####Contract Technician: YOHANA JARQUIN ([id number])[facility])[address] [place] [address] Erythrocyte distribution width (RBC) [Ratio] 14.6 % Normal 11.5-15.0 [facility] Comment on above: Performed By: #### L [id number] ####Contract Technician: YOHANA JARQUIN ([id number])[address] Hematocrit (Bld) [Volume fraction] 51.0 % Normal 40.0-52.0 [facility] Comment on above: Performed By: #### L [id number] ####Contract Technician: YOHANA JARQUIN ([id number])[facility])[address] [place] [address] Hemoglobin (Bld) [Mass/Vol] 17.1 g/dL Normal 13.0-18.0 [facility] Comment on above: Performed By: #### L [id number] ####Contract Technician: YOHANA JARQUIN ([id number])[facility])[address] [place] [address] IMMATURE GRANS % 0.2 % Normal 0.0-2.0 [facility] Comment on above: Performed By: #### L [id number] ####Contract Technician: YOHANA JARQUIN ([id number])[address] IMMATURE GRANS ABSOLUTE 0.0 10*3/uL Normal <0.1 [facility] Comment on above: Performed By: #### L [id number] ####Contract Technician: YOHANA JARQUIN ([id number])[facility])[address] [place] [address] Lymphocytes (Bld) [#/Vol] 3.0 10*3/uL Normal 1.0-4.3 [facility] Comment on above: Performed By: #### L [id number] ####Contract Technician: YOHANA JARQUIN ([id number])[address] Lymphocytes/100 WBC (Bld) 37.5 % Normal 15.0-45.0 [facility] Comment on above: Performed By: #### L [id number] ####Contract Technician: YOHANA JARQUIN ([id number])[address] MCH (RBC) [Entitic mass] 28.3 pg Normal 26.0-34.0 [facility] Comment on above: Performed By: #### L [id number] ####Contract Technician: YOHANA JARQUIN ([id number])[address] MCHC 33.5 % Normal 30.5-36.0 [facility] Comment on above: Performed By: #### L [id number] ####Contract Technician: YOHANA JARQUIN ([id number])[address] MCV (RBC) [Entitic vol] 84.4 fL Normal 77.0-99.0 [facility] Comment on above: Performed By: #### L [id number] ####Contract Technician: YOHANA JARQUIN ([id number])[facility] ([facility])[address] [place] [address] Monocytes (Bld) [#/Vol] 0.8 10*3/uL Normal 0.0-0.9 [facility] Comment on above: Performed By: #### L [id number] ####Contract Technician: YOHANA JARQUIN ([id number])[facility] ([facility])[address] [place] [address] Monocytes/100 WBC (Bld) 10.2 % Normal 5.0-13.0 [facility] Comment on above: Performed By: #### L [id number] ####Contract Technician: YOHANA JARQUIN ([id number])[facility])[address] [place] [address] NEUTROPHILS ABSOLUTE 4.0 10*3/uL Normal 1.8-7.5 [facility] Comment on above: Performed By: #### L [id number] ####Contract Technician: YOHANA JARQUIN ([id number])[facility] ([facility])[address] [place] [address] Neutrophils/100 WBC (Bld) 49.5 % Normal 38.0-82.0 [facility] Comment on above: Performed By: #### L [id number] ####Contract Technician: YOHANA JARQUIN ([id number])[facility])[address] [place] [address] NRBC 0.0 /100 WBCs Normal 0.0-2.0 [facility] Comment on above: Performed By: #### L [id number] ####Contract Technician: YOHANA JARQUIN ([id number])[facility] ([facility])[address] [place] [address] Platelet mean volume (Bld) [Entitic vol] 10.3 fL Normal 9.0-12.7 [facility] Comment on above: Performed By: #### L [id number] ####Contract Technician: YOHANA JARQUIN ([id number])[facility])[address] Platelets (Bld) [#/Vol] 399 10*3/uL Normal 140-440 [facility] Comment on above: Performed By: #### L [id number] ####Contract Technician: YOHANA JARQUIN ([id number])[facility] ([facility])[address] [place] [address] RBC (Bld) [#/Vol] 6.04 10*6/uL High 4.40-5.90 [facility] Comment on above: Performed By: #### L [id number] ####Contract Technician: YOHANA JARQUIN ([id number])[facility])[address] [place] [address] WBC (Bld) [#/Vol] 8.1 10*3/uL Normal 3.6-10.7 [facility] Comment on above: Performed By: #### L [id number] ####Contract Technician: YOHANA JARQUIN ([id number])[facility])[address] [place] [address] CKon 08-04-2024 CK [Catalytic activity/Vol] 355 U/L High 30-185 [facility] Comment on above: Performed By: #### L AB46, LAB62, LAB17 ####Contract Technician: YOHANA JARQUIN ([id number])[facility])[address] [place] [address] COMPLETE URINALYSISon 2024 BACTERIA (#/HPF) IN URINE Negative Normal Negative [facility] Comment on above: Performed By: #### L [id number] ####Contract Technician: YOHANA JARQUIN ([id number])[facility])[address] [place] [address] BILIRUBIN, TOTAL PRESENCE IN URINE Negative Normal Negative [facility] Comment on above: Performed By: #### L [id number] ####Contract Technician: YOHANA JARQUIN ([id number])[facility])[address] [place] [address] Clarity (U) Clear Normal Clear [facility] Comment on above: Performed By: #### L [id number] ####Contract Technician: YOHANA JARQUIN ([id number])[facility])[address] [place] [address] Color (U) Yellow Normal Lt. Yellow [facility] Comment on above: Performed By: #### L [id number] ####Contract Technician: YOHANA JARQUIN ([id number])[facility] ([facility])[address] [place] [address] GLUCOSE (MG/DL) IN URINE Normal Normal Nor mal (<70) [facility] Comment on above: Performed By: #### L [id number] ####Contract Technician: YOHANA JARQUIN ([id number])[facility] ([facility])[address] [place] [address] HEMOGLOBIN PRESENCE IN URINE 0.1 mg/dL Abnormal Negative [facility] Comment on above: Performed By: #### L [id number] ####Contract Technician: YOHANA JARQUIN ([id number])[facility] ([facility])[address] [place] [address] [place] HYALINE CASTS (#/LPF) IN URINE SEDIMENT BY MICROSCOPY Negative Normal Negative [facility] Comment on above: Performed By: #### L [id number] ####Contract Technician: YOHANA JARQUIN ([id number])[facility] ([facility])[address] [place] [address] Ketones Ql (U) Negative Normal Negative [facility] Comment on above: Performed By: #### L [id number] ####Contract Technician: YOHANA JARQUIN ([id number])[facility] ([facility])[address] [place] [address] LEUKOCYTE ESTERASE PRESENCE IN URINE BY TEST STRIP Negative Normal Negative [facility] Comment on above: Performed By: #### L [id number] ####Contract Technician: YOHANA JARQUIN ([id number])[facility] [place] [address] [place] MUCUS (#/LPF) IN URINE SEDIMENT Few Normal Negative [facility] Comment on above: Performed By: #### L [id number] ####Contract Technician: YOHANA JARQUIN ([id number])[facility] ([facility])[address] [place] [address] NITRITE PRESENCE IN URINE Negative Normal Negative [facility] Comment on above: Performed By: #### L [id number] ####Contract Technician: YOHANA JARQUIN ([id number])[facility] ([facility])[address] [place] [address] pH (U) 7.0 [pH] Normal 5.0-8.0 [facility] Comment on above: Performed By: #### L [id number] ####Contract Technician: YOHANA JARQUIN ([id number])[facility] ([facility])[address] [place] [address] Protein (U) [Mass/Vol] 600 mg/dL Abnormal Negative [facility] Comment on above: Performed By: #### L [id number] ####Contract Technician: YOHANA JARQUIN ([id number])[facility] ([facility])[address] [place] [address] RBC (#/HPF) IN URINE SEDIMENT 0-2 Normal 0-2 [facility] Comment on above: Performed By: #### L [id number] ####Contract Technician: YOHANA JARQUIN ([id number])[facility] ([facility])[address] [place] [address] Specific gravity (U) [Rel density] 1.025 Normal 1.005-1.030 [facility] Comment on above: Performed By: #### L [id number] ####Contract Technician: YOHANA JARQUIN ([id number])[facility] ([facility])[address] [place] [address] SQUAMOUS EPITHELIAL CELLS (#/HPF) IN URINE SEDIMENT 0-2 Normal 3-5 [facility] Comment on above: Performed By: #### L [id number] ####Contract Technician: YOHANA JARQUIN ([id number])[facility] ([facility])[address] [place] [address] UROBILINOGEN (MG/DL) IN URINE Normal Normal Normal (0-1) [facility] Comment on above: Performed By: #### L [id number] ####Contract Technician: YOHANA JARQUIN ([id number])[facility])[address] [place] [address] WBC (LEUKOCYTE) (#/HPF) IN URINE SEDIMENT 0-2 Normal 0-5 [facility] Comment on above: Performed By: #### L [id number] ####Contract Technician: YOHANA JARQUIN ([id number])[facility])[address] [place] [address] COMPREHENSIVE METABOLIC PANE Akhil 08-04-2024 Albumin [Mass/Vol] 4.2 g/dL Normal 3.5-5.0 [facility] Comment on above: Performed By: #### L AB46, LAB62, LAB17 ####Contract Technician: YOHANA JARQUIN ([id number])[facility])[address] [place] [address] ALP [Catalytic activity/Vol] 79 U/L Normal 40-150 [facility] Comment on above: Performed By: #### L AB46, LAB62, LAB17 ####Contract Technician: YOHANA JARQUIN ([id number])[facility])[address] [place] [address] ALT [Catalytic activity/Vol] 284 U/L High <40 [facility] Comment on above: Performed By: #### L AB46, LAB62, LAB17 ####Contract Technician: YOHANA JARQUIN ([id number])[facility])[address] [place] [address] Anion gap [Moles/Vol] 14 mmol/L High 3-13 [facility] Comment on above: Performed By: #### L AB46, LAB62, LAB17 ####Contract Technician: YOHANA JARQUIN ([id number])[facility])[address] [place] [address] AST [Catalytic activity/Vol] 237 U/L High <34 [facility] Comment on above: Performed By: #### L AB46, LAB62, LAB17 ####Contract Technician: YOHANA JARQUIN ([id number])[facility])[address] [place] [address] Bilirubin [Mass/Vol] 0.4 mg/dL Normal <1.2 [facility] Comment on above: Performed By: #### L AB46, LAB62, LAB17 ####Contract Technician: YOHANA JARQUIN ([id number])[facility])[address] [place] [address] Calcium [Mass/Vol] 8.6 mg/dL Normal 8.4-10.2 [facility] Comment on above: Performed By: #### Jaspreet AB46, LAB62, LAB17 ####Contract Technician: YOHANA JARQUIN ([id number])[facility])[address] [place] [address] Chloride [Moles/Vol] 100 mmol/L Normal 98-107 [facility] Comment on above: Performed By: #### Jaspreet AB46, LAB62, LAB17 ####Contract Technician: YOHANA JARQUIN ([id number])[facility] ([facility])[address] [place] [address] CO2 [Moles/Vol] 26 mmol/L Normal 22-29 [facility] Comment on above: Performed By: #### Jaspreet AB46, LAB62, LAB17 ####Contract Technician: OYHANA JARQUIN ([id number])[facility])[address] [place] [address] Creatinine [Mass/Vol] 0.97 mg/dL Normal 0.72-1.25 [facility] Comment on above: Performed By: #### L AB46, LAB62, LAB17 ####Contract Technician: YOHANA JARQUIN ([id number])[facility])[address] [place] [address] GLOMERULAR FILTRATION RATE ML/MIN/1.73 SQ M.PREDICTED >90.0 Normal >60.0 [facility] Comment on above: Result Comment: Calc ulation based on the Chronic Kidney Disease Epidemiology Collaboration (CKD-EPI) equation refit without adjustment for race Performed By: #### Jaspreet LABOY, LAB62, LAB17 ####Contract Technician: YOHANA JARQUIN ([id number])[facility])[address] [place] [address] Glucose [Mass/Vol] 106 mg/dL High 74-100 [facility] Comment on above: Performed By: #### Jaspreet LABOY, LAB62, LAB17 ####Contract Technician: YOHANA JARQUIN ([id number])[facility])[address] [place] [address] Potassium [Moles/Vol] 4.0 mmol/L Normal 3.5-5.1 [facility] Comment on above: Result Comment: [facility] potassium values may be up to 0.5 mmol/L lower than serum values. Performed By: #### Jaspreet LABOY, LAB62, LAB17 ####Contract Technician: YOHANA JARQUIN ([id number])[facility])[address] [place] [address] Protein [Mass/Vol] 8.2 g/dL Normal 6.4-8.3 [facility] Comment on above: Performed By: #### Jaspreet LABOY LAB62, LAB17 ####Contract Technician: YOHANA JARQUIN ([id number])[facility])[address] [place] [address] Sodium [Moles/Vol] 140 mmol/L Normal 136-145 [facility] Comment on above: Performed By: #### Jaspreet LABOY LAB62, LAB17 ####Contract Technician: YOHANA JARQUIN ([id number])[facility])[address] [place] [address] Urea nitrogen [Mass/Vol] 12 mg/dL Normal 8-21 [facility] Comment on above: Performed By: #### Jaspreet LABOY, LAB62, LAB17 ####Contract Technician: YOHANA JARQUIN ([id number])[facility])[address] [place] [address] Comprehensive metabolic 1998 panelon 08-04-2024 Albumin [Mass/Vol] 4.2 g/dL 3.5 - 5.0 g/dL [facility] ALP [Catalytic activity/Vol] 79 U/L 40 - 150 U/L [facility] ALT [Catalytic activity/Vol] 284 U/L High NINF - 40 U/L [facility] Anion gap [Moles/Vol] 14 mmol/L High 3 - 13 mmol/L [facility] AST [Catalytic activity/Vol] 237 U/L High NINF - 34 U/L [facility] Bilirubin [Mass/Vol] 0.4 mg/dL NINF - 1.2 mg/dL [facility] Calcium [Mass/Vol] 8.6 mg/dL 8.4 - 10. 2 mg/dL [facility] Chloride [Moles/Vol] 100 mmol/L 98 - 10 7 mmol/L [facility] CO2 [Moles/Vol] 26 mmol/L 22 - 29 mmol/L [facility] Creatinine [Mass/Vol] 0.97 mg/dL 0.72 - 1.25 mg/dL [facility] GFR/1.73 sq M.predicted (S/P/Bld) [Vol rate/Area] - PINF [facility] Comment on above: Calculation based on the Chronic Kidney Disease Epidemiology Collaboration (CKD-EPI) equation refit without adjustment for race Glucose [Mass/Vol] 106 mg/dL High 74 - 100 mg/dL [facility] Potassium [Moles/Vol] 4 mmol/L 3.5 - 5.1 mmol/L [facility] Comment on above: Plasma potassium rosy ues may be up to 0.5 mmol/L lower than serum values. Protein [Mass/Vol] 8.2 g/dL 6.4 - 8.3 g/dL [facility] Sodium [Moles/Vol] 140 mmol/L 136 - 145 mmol/L [facility] Urea nitrogen [Mass/Vol] 12 mg/dL 8 - 21 mg/dL [facility] DRUGS OF ABUSEon 08-04-2024 AMPHETAMINE SCREEN Negative Normal [facility] Comment on above: Performed By: #### L [id number] ####Contract Technician: YOHANA JARQUIN ([id number])[facility] ([facility])[address] [place] [address] BARBITURATES SCREEN Negative Normal [facility] Comment on above: Performed By: #### L [id number] ####Contract Technician: YOHANA JARQUIN ([id number])[facility] ([facility])[address] [place] [address] BENZODIAZEPINE SCREEN Negative Normal [facility] Comment on above: Performed By: #### L [id number] ####Contract Technician: YOHANA JARQUIN ([id number])[facility] ([facility])[address] [place] [address] COCAINE METAB. SCREEN Negative Normal [facility] Comment on above: Performed By: #### L [id number] ####Contract Technician: YOHANA JARQUIN ([id number])[facility])[address] [place] [address] FENTANYL SCREEN, UR QUAL Negative Normal [facility] Comment on above: Result Comment: [...] under separate order. Performed By: #### L [id number] ####Contract Technician: YOHANA JARQUIN ([id number])[facility] [place] [address] METHADONE SCREEN Negative Normal [facility] Comment on above: Performed By: #### L [id number] ####Contract Technician: YOHANA JARQUIN ([id number])[facility] ([facility])[address] [place] [address] OPIATES SCREEN Negative Normal [facility] Comment on above: Performed By: #### L [id number] ####Contract Technician: YOHANA JARQUIN ([id number])[facility])[address] [place] [address] OXYCODONE SCREEN Negative Normal [facility] Comment on above: Performed By: #### L [id number] ####Contract Technician: YOHANA JARQUIN ([id number])[facility] ([facility])[address] [place] [address] PHENCYCLIDINE SCREEN Negative Normal [facility] Comment on above: Performed By: #### L [id number] ####Contract Technician: YOHANA JARQUIN ([id number])[facility] ([facility])[address] [place] [address] ECG 12-LEADon 08-04-2024 ECG 12-LEAD IMPRESSION: Sinus rhythm Short VA interval no stemi artifact Electronically Signed On 08-04-2024 01:38:44 EST by Madelyn Crain [facility] ED Nursing Noteon 08-04-2024 ED Nursing Note Complete report provided. To ed of [facility]. Normal [facility] ED Nursing Note A/ox3. Independent t o stretcher. Discharged to [facility]. Belongings set with ems transport. Normal [facility] ED Nursing Note Luzma Tech at beds tk obtaining vitals. Normal [facility] ED Nursing Note CHRISTO Fox giving karena ent warm blanket for comfort. Normal [facility] ED Nursing Note EKG at patient bedside. [facility] ED Nursing Note Dr. Tellez at patient bedside. Normal [facility] ED Nursing Note Pt changed into 2 go wns and wanded by officer. Pt has 1 belonging bag. with pt in 47. Normal [facility] ED Provider Noteon ED Provider [...] emergency department for depression. Patient sent from [facility] for medical clearance. Patient presented there with his mother who has been worried about him. He states he had some social issues ongoing with his ex partner. Denies any abuse. Denies hallucinations alcohol drug use homicidal thoughts. Apparently at [facility] he endorsed SI but denies that here. Denies prior attempts. States he is not on any psychiatric medications but he was given Ativan and hydroxyzine reportedly at [facility]. He lives at home with his 10-year-old [...] [employer] Madelyn Crain MD 08/04/24 0141 [facility] ED Provider Note EMERGENCY DEPARTMENT ENCOUNTER Pt Name: Neal Larios Birthdate 1990 Date of evaluation: 08/04/2024 ED Provider: Prosper Tellez DO CHIEF COMPLAINT Chief Complaint Patient presents with Suicidal Patient was sent from [facility] for medical clearance. Patient is depressed. Patient [...] COVID 04/2021 Eczema IBS (irritable bowel syndrome) Foster exposure MRSA (methicillin resistant staph aureus) culture positive Substance abuse ([facility]) ([facility]) SURGICAL HISTORY Past Surgical History: [...] grade. . Her biological mom lives in [place]. No significant other right now. Has 2 [...] Normal ran (more content not included)... 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 NOTE: This result is for medical treatment only. Analysis performed using non-forensic procedures. 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 NOTE: This result is for medical treatment only. Analysis performed using non-forensic procedures. [facility] Laboratory - Chemistry and C hemistry - challengeon 08-04-2024 CK [Catalytic activity/Vol] 355 U/L High 30 - 185 U/L [facility] - Drug toxicology on 08-04-2024 Amphetamines Screen method >1000 ng/mL Ql (U) Negative [facility] Barbiturates Screen method >200 ng/mL Ql (U) Negative [facility] Benzodiazepines Ql (U) Negative [facility] Methadone Screen Ql (U) Negative [facility] Opiates Screen Ql (U) Negative [facility] oxyCODONE Ql (U) Negative [facility] Phencyclidine Ql (U) Negative [facility] - Microbiology an d Antimicrobial susceptibilityOrdered By: Pilar Burkett on 08-04-2024 SARS-CoV-2 (COVID-19) Ag IA.rapid Ql (Resp) Negative Negative [facility] Comment on above: A negative result do es not rule out the possibility of SARS-CoV-2 infection. NAAT-based methods should be considered for symptomatic patients presenting greater than seven days after onset of symptoms. Method: Lateral flow immunoassay. Fact sheets for healthcare providers and patients can be found at the following sites: https://www.fda.gov/media/903138/download https://www.fda.gov/media/626164/download No Panel Informationon 08-04 Interpretation and review of laboratory results Abnormal [facility] COCAINE METAB. SCREEN Negative [facility] DNA SEQ FENTANYL SCREEN, UR QUAL Negative [facility] The expected value f or all [...] is needed, request confirmation under separate order. [facility] P [place] 58 degrees [facility] VA Interval 62 ms [facility] QRS [place] 45 degrees [facility] QRSD Interval 89 ms [facility] QT Interval 381 ms [facility] QTC Interval 403 ms [facility] T Wave [place] 31 degrees [facility] Sinus rhythm Short VA interval no stemi artifact Electronically Signed On 08-04-2024 01:38:44 EST by Madelyn Crain CV Madelyn Ann MD - 08/04/2024 IMPRESSION: Sinus rhythm Short VA interval no stemi artifact Electronically Signed On 08-04-2024 01:38:44 EST by Madelyn Crain [facility] SARS-COV-2 ANTIGENon 025 SARS-COV-2 ANTIGEN SARS-COV-2 ANTIGEN -BINAX Reference Negative Negative A negative result does not rule out the possibility of SARS-CoV-2 infection. NAAT-based methods should be considered for symptomatic patients presenting greater than seven days after onset of symptoms. Method: Lateral flow immunoassay. Fact sheets for healthcare providers and patients can be found at the following sites: https://www.fda.gov/med ia/366071/download https://www.fda.gov/med ia/314802/download Normal [facility] [facility] Comment on above: Performed By: #### L [id number] ####Contract Technician: YOHANA JARQUIN ([id number])[facility] ([address] SARS-CoV-2 (COVID-19) Ag IA. rapid Ql (Resp)Ordered By: Pilar Burkett on 08-04-2024 Interpretation and review of laboratory results Normal [facility] Urinalysis complete panel (U )Ordered By: Nicolás Orellana on 08-04-2024 Bacteria LM.HPF (Urine sed) [#/Area] Negative Negative /HPF [facility] Bilirubin Ql (U) Negative Negative mg/dL [facility] Clarity (U) Clear Clear [facility] Color (U) Yellow Lt. Yellow [facility] Epithelial cells.squamous LM.HPF (Urine sed) [#/Area] 0-2 [facility] Glucose Ql (U) Normal Normal (<70) mg/dL [facility] Hemoglobin Ql (U) 0.1 mg/dL Abnormal Negative [facility] Hyaline casts Auto (Urine sed) [#/Area] Negative Negative /LPF [facility] Interpretation and review of laboratory results Abnormal [facility] Ketones (U) [Mass/Vol] Negative Negat danielle mg/dL [facility] Leukocyte esterase Test strip Ql (U) Negative Negative [place]/uL [facility] Mucus LM.HPF (Urine sed) [#/Area] Few Negative /LPF [facility] Nitrite Ql (U) Negative Negative [facility] pH (U) 7.0 [pH] 5.0 - 8.0 pH [facility] Protein (U) [Mass/Vol] 600 mg/dL Abnormal Negative [facility] RBC LM.HPF (Urine sed) [#/Area] 0-2 [facility] Specific gravity (U) [Rel density] 1.025 1.005 - 1.030 [facility] Urobilinogen (U) [Mass/Vol] Normal Normal (0-1) mg/dL [facility] WBC LM.HPF (Urine sed) [#/Area] 0-2 [facility] Vital signson 08-04-2024 Heart rate 67 /min bpm [facility] 36on 01-16-2024 36 Rx sent. Follow up a s scheduled. [facility] 36 Prescription Request : Last medication check: 10/25/22 Last physical exam: 05/01/23 Next scheduled appointment: 05/03/24 Last date of refill on this medication 07/25/23 [facility] CNOVon 08-13-2023 CNOV Office Visit (UCWSTR ) ANNAMARIE LARIOS ([id number]) 1990 M Date Time Provider Department 08/13/23 7:00 PM NATY NAGY [facility] During your visit today, we recorded the following information about you: Temperature Pulse Respiration Blood pressure 101.5 degrees 122/minute 18/minute 142/86 Weight 89.8 kg Naty Nagy APRN.CNP 08/14/2023 9:40 AM Signed This note was created using [employer]. Subjective Annamarie Larios is a 33 year [...] (attention deficit hyperactivity disorder) Bipolar 1 disorder ([facility]) Eczema Hx MRSA infection IBS (irritable bowel syndrome) Substance abuse ([facility]) No past surgical history on [...] tenderness or frontal sinus tenderness. Mouth/Throat: Lips: [place]. No lesions. Mouth: Mucous membranes are moist. No oral lesions. Tongue: No lesions. Palate: No lesions. Pharynx: Oropharynx is clear. Uvula midline. Posterior oropharyngeal erythema present. No pharyngeal swelling, oropharyngeal exudate or uvula swelling. Tonsils: No tonsillar exudate or tonsillar abscesses. 2+ on the right. 2+ on the left. Eyes: General: Lids are normal. No aller (more content not included)... Normal [facility] STREP A MOLECULAR (POC)on Procedural Control Valid [facility] Strep A (POCT) Positive Abnormal Negative [facility] Nilson 05-20-2023 ALT [Catalytic activity/Vol] 23 U/L 9 - 46 U/L [facility] Brian 05-20-2023 AST [Catalytic activity/Vol] 22 U/L 10 - 40 U/L [facility] Lipid 1996 panelon 3 Cholesterol [Mass/Vol] 204 mg/dL High [facility] - 200 mg/dL [facility] Cholesterol in HDL [Mass/Vol] 45 mg/dL > OR = 40 [facility] Cholesterol in LDL [Mass/Vol] 131 mg/dL High mg/dL (calc) [facility] Comment on above: Reference range: <10 [...] LDL-C. Juvenal DAVIS et al. WINSTON. 2013;310(19): 7698-6290 (http://education.TORCH.sh.MysteryD/faq/ENZ915) Cholesterol non HDL [Mass/Vol] 159 mg/dL High [facility] Comment on above: For patients with di abetes plus 1 major ASCVD risk factor, treating to a non-HDL-C goal of <100 mg/dL (LDL-C of <70 mg/dL) is considered a therapeutic option. Cholesterol.total/Choles terol in HDL [Mass ratio] 4.5 {ratio} [facility] Interpretation and review of laboratory results Abnormal [facility] Triglyceride [Mass/Vol] 167 mg/dL High NINF - 150 mg/dL [facility] No Panel Informationon 05-20 [facility] CNOVon 10-21-2022 CN Office Visit (UCWSTR ) ANNAMARIE LARIOS ([id number]) 1990 M Date Time Provider Department 10/21/22 8:30 AM DIDIER KILGORE [facility] During your visit today, we recorded the following information about you: Temperature Pulse Respiration Blood pressure 98.4 degrees 100/minute 21/minute 132/80 Weight 84.6 kg Didier Kilgore APRN.FINANCE ASSOCIATE 10/21/2022 9:00 AM Signed Subjective HPI Nontoxic-appearing [...] infection IBS (irritable bowel syndrome) Substance abuse ([facility]) No past surgical history on [...] swelling or pain on movement. Mouth/Throat: Lips: [place]. Mouth: Mucous membranes are moist. Pharynx: Oropharynx [...] of care. This note was generated using [employer] software. It may contain errors in wording, punctuation, or spelling. Didier Kilgore, KEY[place].FINANCE ASSOCIATE Allergies As of Date: 10/21/2022 Noted Allergy Reaction CEPHLASPORINS (CEPHALOSPORINS) (more content not included)... Normal [facility] STREP A MOLECULAR (POC)on Procedural Control Valid [facility] Strep A (POCT) Negative Negative [facility] CNOVon 09-21-2022 CNOV Office Visit (UCWSTR ) LARIOSANNAMARIE PRESTON ([id number]) 1990 M Date Time Provider Department 09/21/22 10:00 AM IAIN LOBO WS During your visit today, we recorded the following information about you: Temperature Pulse Respiration Blood pressure 99.2 degrees 72/minute 16/minute 128/82 Weight 84 kg Iain Lobo PA-C 09/21/2022 10:31 AM Signed This note was created using [employer]. Subjective Annamarie Larios is a 32 year [...] (attention deficit hyperactivity disorder) Bipolar 1 disorder ([facility]) Eczema Hx MRSA infection IBS (irritable bowel syndrome) Substance abuse ([facility]) Current Outpatient Medications Medication Sig [...] Diagnosis:Viral URI [J06.9] Order(s):STREP A MOLECULAR (POC) [4133299] Order #: [id number]. #:[id number] Prescriptions as of 09/21/2022 - famotidine (PEPCID) 40 mg tablet Take 40 mg by mouth. - EPINEPHrine (EPIPEN 2-KAMILA) 0.3 mg/0.3 mL auto-injector Inject 0.3 mL intramuscularly as needed. Problem List As Of Date: 09/21/2022 (None) Encounter Status:Closed by IAIN LOBO on 09/21/22 Normal [facility] STREP A MOLECULAR (POC)on Procedural Control Valid [facility] Strep A (POCT) Negative Negative [facility] STREP A MOLECULAR (POC)on Procedural Control Valid [facility] Strep A (POCT) Negative Negative [facility] CR Chest PA/LATon 06-07-2021 CR Chest PA/LAT Patient Name: ANNAMARIE CORLEY Diagnostic Radiology ACCESSION EXAM DATE/TIME PROCEDURE ORDERING PROVIDER [id number] 06/07/2021 13:35 EST CR Chest PA and LAT [id number] -[facility] CPT code 67144 Reason For Exam (CR Chest PA and [...] Transcribed Date and Time: 06/07/2021 2:35 Normal [facility] XR CHEST (2 VW)on 06-07-2021 Patient Name: ANNAMARIE CORLEY Diagnostic Radiology ACCESSION EXAM DATE/TIME PROCEDURE ORDERING PROVIDER [id number] 06/07/2021 13:35 EST CR Chest PA & LAT [id number] [facility] CPT code 46415 Reason For Exam (CR Chest PA & [...] Date and Time: 06/07/2021 2:35 [facility] Addy Walker MD - 06/07/2021 Patient Name: ANNAMARIE LARIOS Diagnostic Radiology ACCESSION EXAM DATE/TIME PROCEDURE ORDERING PROVIDER [id number] 06/07/2021 13:35 EST CR Chest PA & LAT [id number] [facility] CPT code 68585 Reason For Exam (CR Chest PA & [...] night. Objective Data: Objective Information: T PRBPSpO2 Value36.10690639/42155% Date/Time12/23 7: 7: 7: 7: 7:31 Range(36.2C - 37.2C ) (51 - 92 ) (16 - 17 ) (105 - 138 )/ (59 - 79 ) (96% - 100% ) Highest temp of 37.2 C was recorded at 12/22 10:13 Pain reported at 12/23 6:45: 0 = None T PRBPSpO2 Value36.14148275/08983% Date/Time12/23 7: 7: 7: 7: 7:31 Range(36.2C [...] the note. I personally evaluated the patient [id number] Electronic Signatures: Ondina Slater) (Signed 05-Jan-2019 09:19) Authored: Signature/Cosignature/A ttestation Co-Signer: Assessment and Plan, Signature/Cosignature/A ttestation Jody Ochoa (Fellow)) (Signed 23-Dec-2018 14:37) Authored: Service, Subjective Data, Objective Data, Assessment and Plan, Signature/Cosignature/A ttestation Last Updated: 05-Jan-2019 09:19 by Ondina Slater) Normal [facility] [place] Cytologyon 12-23-2018 [facility] Cytology Patient Name ANNAMARIE LARIOS Date of Procedure: 12/23/2018 Date Reported: 12/24/2018 Date Received: 12/23/2018 Date of / Sex 1990 (Age: 28) / M Race: WHITE Submitting Physician: LEIGH WHEELER MD Other External # FINAL CYTOLOGICAL INTERPRETATION A. ESOPHAGEAL BRUSH: -- NO MALIGNANT CELLS IDENTIFIED. -- FUNGAL ORGANISMS PRESENT MORPHOLOGICALLY CONSISTENT WITH DOMINGA SPECIES. -- SEE SURGICAL SPECIMEN [id number]. The gross and/or microscopic findings were reviewed in conjunction with pathology resident, Eunice Page M.D. Electronically Signed Out By JENNIFER WAGNER III, D.O. By the signature on this report, the individual or group listed as making the Final Interpretation/Diagnosi s certifies that they have reviewed this case. Slide(s) initially screened by a Folder Machine Adjuster at [place] [address] Clinical History EVALUATE FOR DOMINGA Source of Specimen A: ESOPHAGEAL BRUSH Specimen Submitted as: A: ESOPHAGEAL BRUSH pap non-account solutions analyst ThinPrep slide Gross Description 1 BRUSH IN 30cc CLEAR CYTOLYT, WITH PARTICLES Normal [facility] Comment on above: Performed By: #### C #### [facility] Cytology [address] [place] [address] Surgical Pathology Depar tmenton 12-23-2018 [facility] Surgical Pathology Department Name ANNAMARIE LARIOS [...] in one cassette. DPG dpg/12/23/2018 Normal [facility] Comment on above: Performed By: #### U HCS #### [facility] Surgical Pathology Department [address] [facility] [address] BASIC METABOLIC PANELon 06-2 Anion gap [Moles/Vol] 16 mmol/L Normal 10 - 20 [facility] Comment on above: Performed By: #### B MP #### [facility] [address] [facility] [place] [address] Calcium [Mass/Vol] 10.2 mg/dL Normal 8.6 - 10.6 [facility] Comment on above: Performed By: #### B MP #### [facility] [address] [place] [address] Chloride [Moles/Vol] 102 mmol/L Normal 98 - 107 [facility] Comment on above: Performed By: #### B MP #### [facility] [address] [place] [address] Creatinine [Mass/Vol] 1.02 mg/dL Normal 0.50 - 1.30 [facility] Comment on above: Performed By: #### B MP #### [facility] [address] [place] [address] GFR- AM. >60 Normal >60 [facility] Comment on above: Result Comment: CALC ULATIONS OF ESTIMATED GFR ARE PERFORMED USING THE MDRD STUDY EQUATION FOR THE IDMS-TRACEABLE CREATININE METHODS. CLIN CHEM 2007;53:766-72 Performed By: #### B MP #### [facility] [address] [place] [address] GFR-NON AM. >60 Normal >60 [facility] Comment on above: Performed By: #### B MP #### [facility] [address] [place] [address] Glucose [Mass/Vol] 94 mg/dL Normal 74 - 99 [facility] Comment on above: Performed By: #### B MP #### [facility] [address] [place] [address] HCO3 (Bld) [Moles/Vol] 27 mmol/L Normal 21 - 32 [facility] Comment on above: Performed By: #### B MP #### [facility] [address] [place] [address] Potassium [Moles/Vol] 4.4 mmol/L Normal 3.5 - 5.3 [facility] Comment on above: Performed By: #### B MP #### [facility] [address] [place] [address] Sodium [Moles/Vol] 141 mmol/L Normal 136 - 145 [facility] Comment on above: Performed By: #### B MP #### [facility] [address] [place] [address] Urea nitrogen [Mass/Vol] 10 mg/dL Normal 6 - 23 [facility] Comment on above: Performed By: #### B MP #### [facility] [address] [place] [address] CBC AND DIFFERENTIALon 12-22 % AUTOMATED IMMATURE GRAN 0.3 % Normal 0.0 - 0.9 [facility] Comment on above: Result Comment: Perc ent differential counts (%) should be interpreted in the context of the absolute cell counts (cells/L). Performed By: #### C BCDF #### [facility] [address] [place] [address] Basophils (Bld) [#/Vol] 0.15 10*3/uL High 0.00 - 0.1 0 [facility] Comment on above: Performed By: #### C BCDF #### [facility] [address] [place] [address] Basophils/100 WBC (Bld) 1.4 % Normal 0.0 - 2.0 [facility] Comment on above: Performed By: #### C BCDF #### [facility] [address] [place] [address] Eosinophils (Bld) [#/Vol] 0.35 10*3/uL Normal 0.00 - 0.70 [facility] Comment on above: Performed By: #### C BCDF #### [facility] [address] [place] [address] Eosinophils/100 WBC (Bld) 3.2 % Normal 0.0 - 6.0 [facility] Comment on above: Performed By: #### C BCDF #### [facility] [address] [place] [address] Erythrocyte distribution width (RBC) [Ratio] 14.0 % Normal 11.5 - 14.5 [facility] Comment on above: Performed By: #### C BCDF #### [facility] [address] [place] [address] Hematocrit (Bld) [Volume fraction] 49.7 % Normal 41.0 - 52.0 [facility] Comment on above: Performed By: #### C BCDF #### [facility] [address] [place] [address] Hemoglobin (Bld) [Mass/Vol] 16.8 g/dL Normal 13.5 - 17.5 [facility] Comment on above: Performed By: #### C BCDF #### [facility] [address] [place] [address] Lymphocytes (Bld) [#/Vol] 3.79 10*3/uL Normal 1.20 - 4.80 [facility] Comment on above: Performed By: #### C BCDF #### [facility] [address] [place] [address] Lymphocytes/100 WBC (Bld) 34.3 % Normal 13.0 - 44.0 [facility] Comment on above: Performed By: #### C BCDF #### [facility] [address] [place] [address] MCHC (RBC) [Mass/Vol] 33.8 g/dL Normal 32.0 - 36.0 [facility] Comment on above: Performed By: #### C BCDF #### [facility] [address] [place] [address] MCV (RBC) [Entitic vol] 88 fL Normal 80 - [address] [facility] Comment on above: Performed By: #### C BCDF #### [facility] [address] [place] [address] Monocytes (Bld) [#/Vol] 1.32 10*3/uL High 0.10 - 1.0 0 [facility] Comment on above: Performed By: #### C BCDF #### [facility] [address] [place] [address] Monocytes/100 WBC (Bld) 11.9 % Normal 2.0 - 10.[address] [facility] Comment on above: Performed By: #### C BCDF #### [facility] [address] [place] [address] Neutrophils (Bld) [#/Vol] 5.41 10*3/uL Normal 1.20 - 7.70 [facility] (formerly [facility]) Comment on above: Performed By: #### C BCDF #### [facility] [address] [place] [address] Neutrophils/100 WBC (Bld) 48.9 % Normal 40.0 - 80.0 [facility] (formerly [facility]) Comment on above: Performed By: #### C BCDF #### [facility] [address] [place] [address] Nucleated RBC/100 WBC (Bld) [Ratio] 0.0 /100 WBC Normal 0.0-0.0 [facility] (formerly [facility]) Comment on above: Performed By: #### C BCDF #### [facility] [address] [place] [address] Platelets (Bld) [#/Vol] 480 10*3/uL High 150 - 450 [facility] (formerly [facility]) Comment on above: Performed By: #### C BCDF #### [facility] [address] [place] [address] RBC (Bld) [#/Vol] 5.64 x10E12/L Normal 4.50 - 5.90 [facility] (formerly [facility]) Comment on above: Performed By: #### C BCDF #### [facility] [address] [place] [address] WBC (Bld) [#/Vol] 11.1 10*3/uL Normal 4.4 - 11.3 [facility] (formerly [facility]) Comment on above: Performed By: #### C BCDF #### [facility] [address] [place] [address] COAGULATION SCREENon 019 aPTT Coag (Bld) [Time] 36 s Normal 28 - 38 [facility] (formerly [facility]) Comment on above: Result Comment: THE APTT IS NO LONGER USED FOR MONITORING UNFRACTIONATED HEPARIN THERAPY. FOR MONITORING HEPARIN THERAPY, USE THE HEPARIN ASSAY. Performed By: #### C OAGS #### [facility] [address] [place] [address] INR Coag (PPP) [Relative time] 1.0 {INR} Normal 0.9 - 1.1 [facility] ([facility]) Comment on above: Performed By: #### C OAGS #### [facility] [address] [place] [address] PT Coag (PPP) [Time] 11.0 s Normal 9.7 - 12.7 [facility] ([facility]) Comment on above: Performed By: #### C OAGS #### [facility] [address] [place] [address] Consult-Gastroenterologyon 0 12-22-2018 Consult-Gastroenterology Service: Service: Gastroenterology [...] cephalosporins: Hives/Urticaria Objective: Objective Information: T PRBPSpO2 [id number]/7698% Date/Time12/22 18: 18: 18: 18: 18:27 Range(36.2C [...] the note. I personally evaluated the patient [id number] Electronic Signatures: Ondina Slater) (Signed 05-Jan-2019 09:09) Authored: Objective, Signature/Cosignature/A ttestation Co-Signer: History of Present Illness, Objective, Assessment/Recommendati ons, Signature/Cosignature/A ttestation Jody Ochoa (Fellow)) (Signed 22-Dec-2018 21:27) Authored: Service, History of Present Illness, Allergies, Objective, Assessment/Recommendati ons, Signature/Cosignature/A ttestation Last Updated: 05-Jan-2019 09:09 by Ondina Slater) Normal [facility] (formerly [facility]) Provider Note - ED v2on 11-29 Provider [...] 19 days ago. He was seen at [facility] ED right afterwards with negative chest X-ray and abdominal xray. Patient was then referred to GI and ENT doctors with no finding from esophagoscopy. In his barium esophagram done yesterday at [facility], there was a foreign body of 1.3 x 0.8cm in the upper esophagus causing focal esophagus dilation. He was referred to GI , however due to insurance purposes was told to come to [facility] for GI consult. Patient has been having [...] SIGNS: T PRBP SpO2O2(LPM) %FiO2 Method 22-Dec-2018 13:46:[id number] 100 room air, no respiratory support 22-Dec-2018 11:36:[id number]/79 96 room air, no respiratory support 22-Dec-2018 10:13:00-37.2 room air, no respiratory support MEDICAL DECISION MAKING/ED COURSE MDM/ED COURSE: The patient remains clinically and hemodynamically stable while in the ED. Appears to be resting comfortably without distress, tolerating secretions without difficulty. Denies painful swallowing. Endorses FB sensation in throat s/p swallowing aluminum foil 2 days ago. Esophogram yesterday at [facility] revealed FB in upper esophagus. Patient referred [...] ill patient: no Electronic Signatures: Sobeida More (DIRECT CARE WORKER-FINANCE ASSOCIATE) (Signed 22-Dec-2018 17:00) Authored: Provider Note - ED v2 Devyn Jimenez (DO) (Signed 22-Dec-2018 16:50) Authored: Provider Note - ED v2 Co-Signer: Provider Note - ED v2 Last Updated: 22-Dec-2018 17:00 by Sobeida More (DIRECT CARE WORKER-FINANCE ASSOCIATE) References: 1. Data Referenced From Triage - ED 12/22/2018 10:13 AM Normal [facility] ([facility]) Risk Screen - Adult Emergenc yon 12-22-2018 Risk Screen - Adult Emergency Preferred Language: Preferred Language: Preferred Language for Discussing Health Care (patient/designee)Vernell munugia Advanced Directives: Advance Directive Medicalno Family Violence [...] Learning Preferencesindividual instruction Cultural Considerationsnone Developmental Considerationsnone Buddhist Considerationsnone Learning Assessment (Other Learner): Learning Assessment (Other Learner): Other learner availableyes... Learnermother Factors Influencing Readiness to Learnacuteness of illness Factors that Impact Ability to Learnnone Devices/Methods Used to Communicatenone Learning Preferencesindividual instruction Cultural Considerationsnone Developmental Considerationsnone Buddhist Considerationsnone Pressure Injury/TB/Substance: Pressure Injury: Pressure Injury Present on Admissionno Do you have a coughno Substance Use Current or Former Historynever: Cigarette/Tobacco, e-Cigarette/Vaping, Alcohol, Street Drugs Admission Risk Screen: Significant IndicatorsComplete CAGE: CAGE: Is this an injured patient at a Trauma Center ([facility]/Peri/Rodney/Trina conde/[facility]): no Electronic Signatures: Sunitha Ibarra (RN) (Signed 22-Dec-2018 10:53) Authored: Preferred Language, Advanced Directives, Family Violence Adult, Learning Assessment (Patient), Learning Assessment (Other Learner), Pressure Injury/TB/Substance, CAGE Last Updated: 22-Dec-2018 10:53 by Sunitha Ibarra (RN) Normal [facility] ([facility] TH CHEST 2 VIEW PA AND LATon 12-22-2018 TH CHEST 2 VIEW PA AND LAT Patient Name: LUIS ENRIQUE DE LUNA STUDY: TH CHEST 2 VIEW PA AND LAT; 12/22/2018 12:05 pm INDICATION: swallowed aluminum foil. COMPARISON/CORRELATION: None available. ACCESSION NUMBER(S): [id number] ORDERING CLINICIAN: SOBEIDA MORE TECHNIQUE: PA, Lateral [...] as stated. This study was interpreted at [place], [place]. Electronically signed by: ANUJ BOO MD Normal [facility] ([facility]) Triage - EDon [...] have impaired gait Chart Review: CHIEF COMPLAINT ANNAMAREI LARIOS is a Male patient with a [...] Patient has homicidal thoughts: no ESCOBAR: 3 [place] Suicide Suicide Risk Screen In the Past [...] Accompanied By: self Language: Spoken Language Preferred: Sudanese Reading Language Preferred: Sudanese Side Splitter Requested: no hotel services supervisor was requested PRIMARY ASSESSMENT ANNAMARIE LARIOS's primary [...] 18:07 by Darleen Mayberry (RN) Normal [facility] ([facility]) Vital Signs Date Time Vital Sign Value Performing Clinician Facility 02-16-2025 09:24-0400 Heart rate 78 /min Dr. Nikita Sorensen MD Work Phone: [facility] 02-16-2025 09:13-0400 Body temperature 97.6 [degF] Dr. Nikita Sorensen MD Work Phone: [facility] 02-16-2025 09:13-0400 Diastolic blood pressure 82 mm[Hg] Dr. Nikita Sorensen MD Work Phone: [facility] 02-16-2025 09:13-0400 Respiratory rate 16 /min Dr. Nikita Sorensen MD Work Phone: [facility] 02-16-2025 09:13-0400 SaO2% (BldA) [Mass fraction] 97 % Dr. Nikita Sorensen MD Work Phone: 4(917)871-79[address] [place] [address] 02-16-2025 09:13-0400 Systolic blood pressure 149 mm[Hg] Dr. Nikita Sorensen MD Work Phone: 3(931)317-149095 [place] [address] 02-13-2025 19:33-0400 Body height 175.[address] Nikita Sorensen MD Work Phone: 4(369)407-183895 [place] [address] 02-13-2025 19:33-0400 Body mass index (BMI) [Ratio] 28.8 kg/m2 Dr. Nikita Sorensen MD Work Phone: 6(367)449-843937 [place] [address] 02-13-2025 19:33-0400 Body weight 88.[address] Nikita Sorensen MD Work Phone: 7(759)147-311837 [place] [address] 02-13-2025 18:00-0400 Body temperature 99 [degF] Dr. Nikita Sorensen MD Work Phone: 9(545)659-819337 [place] [address] 02-13-2025 18:00-0400 Diastolic blood pressure 74 mm[Hg] Dr. Nikita Sorensen MD Work Phone: [facility] 02-13-2025 18:00-0400 Heart rate 102 /min Dr. Nikita Sorensen MD Work Phone: 2(503)515-511037 [place] [address] 02-13-2025 18:00-0400 Respiratory rate 20 /min Dr. Nikita Sorensen MD Work Phone: 4(221)455-351237 [place] [address] 02-13-2025 18:00-0400 SaO2% (BldA) [Mass fraction] 100 % Dr. Nikita Sorensen MD Work Phone: 1(034)268-941537 [place] [address] 02-13-2025 18:00-0400 Systolic blood pressure 165 mm[Hg] Dr. Nikita Sorensen MD Work Phone: [facility] 02-13-2025 14:36-0400 Body height 175.[address] Nikita Sorensen MD Work Phone: [facility] 02-13-2025 14:36-0400 Body mass index (BMI) [Ratio] 28.9 kg/m2 Dr. Nikita Sorensen MD Work Phone: [facility] 02-13-2025 14:36-0400 Body weight 88.[address] Nikita Sorensen MD Work Phone: [facility] 08-04-2024 03:17-0500 Body temperature 97.59 [degF] Madelyn Crain MD Work Phone: [facility] 08-04-2024 03:17-0500 Diastolic blood pressure 70 mm[Hg] Madelyn Crain MD Work Phone: [facility] 08-04-2024 03:17-0500 Heart rate 83 /min Madelyn Crain MD Work Phone: [facility] 08-04-2024 03:17-0500 Respiratory rate 18 /min Madelyn Crain MD Work Phone: [facility] 08-04-2024 03:17-0500 SaO2% (BldA) [Mass fraction] 94 % Madelyn Crain MD Work Phone: [facility] 08-04-2024 03:17-0500 Systolic blood pressure 121 mm[Hg] Madelyn Crain MD Work Phone: [facility] 08-04-2024 01:25-0500 Body height 175.3 cm Madelyn Crain MD Work Phone: [facility] 08-04-2024 01:25-0500 Body mass index (BMI) [Ratio] 28.06 kg/m2 Madelyn Crain MD Work Phone: [facility] 08-04-2024 01:25-0500 Body weight 86.18 kg Madelyn Crain MD Work Phone: [facility] 08-13-2023 18:54-0500 Body temperature 101.5 [degF] Naty Nagy DIRECT CARE WORKER.FINANCE ASSOCIATE Work Phone: [facility] 08-13-2023 18:54-0500 Body weight 89.81 kg Naty Nagy DIRECT CARE WORKER.FINANCE ASSOCIATE Work Phone: [facility] 08-13-2023 18:54-0500 Diastolic blood pressure 86 mm[Hg] Naty Nagy DIRECT CARE WORKER.FINANCE ASSOCIATE Work Phone: [facility] 08-13-2023 18:54-0500 Heart rate 122 /min Naty Nagy DIRECT CARE WORKER.FINANCE ASSOCIATE Work Phone: [facility] 08-13-2023 18:54-0500 Respiratory rate 18 /min Naty Nagy DIRECT CARE WORKER.FINANCE ASSOCIATE Work Phone: [facility] 08-13-2023 18:54-0500 SaO2% (BldA) [Mass fraction] 97 % Naty Nagy DIRECT CARE WORKER.FINANCE ASSOCIATE Work Phone: [facility] 08-13-2023 18:54-0500 Systolic blood pressure 142 mm[Hg] Naty Nagy DIRECT CARE WORKER.FINANCE ASSOCIATE Work Phone: [facility] 05-20-2023 12:50-0500 Diastolic blood pressure 74 mm[Hg] Nasrin Jaffe MD Work Phone: [facility] 05-20-2023 12:50-0500 Heart rate 59 /min Nasrin Jaffe MD Work Phone: [facility] 05-20-2023 12:50-0500 Respiratory rate 11 /min Nasrin Jaffe MD Work Phone: [facility] 05-20-2023 12:50-0500 SaO2% (BldA) [Mass fraction] 99 % Nasrin Jaffe MD Work Phone: [facility] 05-20-2023 12:50-0500 Systolic blood pressure 118 mm[Hg] Nasrin Jaffe MD Work Phone: [facility] 05-20-2023 12:25-0500 Body temperature 97 [degF] Nasrin Jaffe MD Work Phone: [facility] 05-20-2023 09:12-0500 Body height 175.3 cm Nasrin Jaffe MD Work Phone: [facility] 05-20-2023 09:12-0500 Body mass index (BMI) [Ratio] 27.62 kg/m2 Nasrin Jaffe MD Work Phone: [facility] 05-20-2023 09:12-0500 Body weight 84.82 kg Nasrin Jaffe MD Work Phone: [facility] 05-01-2023 09:11-0400 Body temperature 98.4 [degF] Mare Bridenthal DIRECT CARE WORKER - FINANCE ASSOCIATE Work Phone: [facility] 05-01-2023 09:11-0400 Diastolic blood pressure 84 mm[Hg] Mare Bridenthal DIRECT CARE WORKER - FINANCE ASSOCIATE Work Phone: [facility] 05-01-2023 09:11-0400 Heart rate 84 /min Mare Bridenthal DIRECT CARE WORKER - FINANCE ASSOCIATE Work Phone: [facility] 05-01-2023 09:11-0400 SaO2% (BldA) [Mass fraction] 98 % Mare Bridenthal DIRECT CARE WORKER - FINANCE ASSOCIATE Work Phone: [facility] 05-01-2023 09:11-0400 Systolic blood pressure 129 mm[Hg] Mare Bridenthal DIRECT CARE WORKER - FINANCE ASSOCIATE Work Phone: [facility] 04-30-2023 13:29-0400 Body height 175.3 cm Edwina Delaney PA-C Work Phone: [facility] 04-30-2023 13:29-0400 Body mass index (BMI) [Ratio] 27.62 kg/m2 Edwinamanoj Gutierrezeder PA-C Work Phone: [facility] 04-30-2023 13:29-0400 Body weight 84.82 kg Edwina Delaney PA-C Work Phone: [facility] 04-19-2023 19:43-0400 Diastolic blood pressure 62 mm[Hg] [facility] 04-19-2023 19:43-0400 Heart rate 72 /min [facility] 04-19-2023 19:43-0400 Respiratory rate 18 /min [facility] 04-19-2023 19:43-0400 SaO2% (BldA) [Mass fraction] 97 % [facility] 04-19-2023 19:43-0400 Systolic blood pressure 133 mm[Hg] [facility] 04-19-2023 18:15-0400 Body height 175.26 cm [facility] 04-19-2023 18:15-0400 Body mass index (BMI) [Ratio] 27.3 kg/m2 [facility] 04-19-2023 18:15-0400 Body temperature 97.6 [degF] [facility] 04-19-2023 18:15-0400 Body weight 84.18 kg [facility] 10-21-2022 08:34-0400 Body temperature 98.4 [degF] [facility] DIRECT CARE WORKER.FINANCE ASSOCIATE Work Phone: [facility] 10-21-2022 08:34-0400 Body weight 84.55 kg Didier Kilgore DIRECT CARE WORKER.FINANCE ASSOCIATE Work Phone: [facility] 10-21-2022 08:34-0400 Diastolic blood pressure 80 mm[Hg] Didier Kilgore DIRECT CARE WORKER.FINANCE ASSOCIATE Work Phone: [facility] 10-21-2022 08:34-0400 Heart rate 100 /min Didier Kilgore DIRECT CARE WORKER.FINANCE ASSOCIATE Work Phone: [facility] 10-21-2022 08:34-0400 Respiratory rate 21 /min Didier Coronaleenoch DIRECT CARE WORKER.FINANCE ASSOCIATE Work Phone: [facility] 10-21-2022 08:34-0400 SaO2% (BldA) [Mass fraction] 98 % Didier Kilgore DIRECT CARE WORKER.FINANCE ASSOCIATE Work Phone: [facility] 10-21-2022 08:34-0400 Systolic blood pressure 132 mm[Hg] Didier Magui CHRISTIE Work Phone: [facility] 09-21-2022 10:01-0400 Body temperature 99.19 [degF] Iain Athy PA-C Work Phone: [facility] 09-21-2022 10:01-0400 Body weight 84.01 kg Iain Athy PA-C Work Phone: [facility] 09-21-2022 10:01-0400 Diastolic blood pressure 82 mm[Hg] Iain Athy PA-C Work Phone: [facility] 09-21-2022 10:01-0400 Heart rate 72 /min Iain Athy PA-C Work Phone: [facility] 09-21-2022 10:01-0400 Respiratory rate 16 /min Iain Athy PA-C Work Phone: [facility] 09-21-2022 10:01-0400 SaO2% (BldA) [Mass fraction] 97 % Iain Athy PA-C Work Phone: [facility] 09-21-2022 10:01-0400 Systolic blood pressure 128 mm[Hg] Iain Athy PA-C Work Phone: [facility] 04-29-2022 12:04-0400 Body temperature 98.71 [degF] Dora Bogner PA-C Work Phone: [facility] 04-29-2022 12:04-0400 Body weight 76.2 kg Dora Bogner PA-C Work Phone: [facility] 04-29-2022 12:04-0400 Diastolic blood pressure 72 mm[Hg] Dora Bogner PA-C Work Phone: [facility] 04-29-2022 12:04-0400 Heart rate 84 /min Dora Bogner PA-C Work Phone: [facility] 04-29-2022 12:04-0400 Respiratory rate 16 /min Dora Bogner PA-C Work Phone: [facility] 04-29-2022 12:04-0400 SaO2% (BldA) [Mass fraction] 99 % Dora Bogner PA-C Work Phone: [facility] 04-29-2022 12:04-0400 Systolic blood pressure 124 mm[Hg] Dora Bogner PA-C Work Phone: [facility] 02-05-2022 19:12-0400 Body temperature 98.4 [degF] Jj Jhonny DIRECT CARE WORKER.FINANCE ASSOCIATE Work Phone: [facility] 02-05-2022 19:12-0400 Body weight 75.3 kg Jj Jhonny DIRECT CARE WORKER.FINANCE ASSOCIATE Work Phone: [facility] 02-05-2022 19:12-0400 Diastolic blood pressure 86 mm[Hg] Jj Jhonny DIRECT CARE WORKER.FINANCE ASSOCIATE Work Phone: [facility] 02-05-2022 19:12-0400 Heart rate 74 /min Jj Jhonny DIRECT CARE WORKER.FINANCE ASSOCIATE Work Phone: [facility] 02-05-2022 19:12-0400 Respiratory rate 20 /min Jj Jhonny DIRECT CARE WORKER.FINANCE ASSOCIATE Work Phone: [facility] 02-05-2022 19:12-0400 SaO2% (BldA) [Mass fraction] 99 % Jj Jhonny DIRECT CARE WORKER.FINANCE ASSOCIATE Work Phone: [facility] 02-05-2022 19:12-0400 Systolic blood pressure 128 mm[Hg] Jj Jhonny DIRECT CARE WORKER.FINANCE ASSOCIATE Work Phone: [facility] 01-19-2022 16:39-0400 Respiratory rate 18 /min [facility] Work Phone: 01-19-2022 16:27-0400 Body height 175.26 cm [facility] Work Phone: 01-19-2022 16:27-0400 Body mass index (BMI) [Ratio] 25.1 kg/m2 [facility] Work Phone: 01-19-2022 16:27-0400 Body temperature 98.6 [degF] [facility] Work Phone: 01-19-2022 16:27-0400 Body weight 77.11 kg [facility] Work Phone: 01-19-2022 16:27-0400 Diastolic blood pressure 91 mm[Hg] [facility] Work Phone: 01-19-2022 16:27-0400 Heart rate 88 /min [facility] Work Phone: 01-19-2022 16:27-0400 SaO2% (BldA) [Mass fraction] 100 % [facility] Work Phone: 01-19-2022 16:27-0400 Systolic blood pressure 131 mm[Hg] [facility] Work Phone: Encounters Encounter Date Encounter Type Care Provider Facility Start: 05-31-2025 ambulatory Nikita Sorensen Facility :[facility] Start: 04-07-2025 ambulatory Xochilt De Jesus Facility:[facility] Start: 04-07-2025 End: 04-11-2025 Evaluation and management of inpatient Xochilt De Jesus Facility:[facility] Start: 03-31-2025 ambulatory Jo-Ann L White Facility :[facility] Start: 03-31-2025 End: 04-03-2025 Evaluation and management of inpatient Jo-Ann L White Facility:[facility] Start: 02-15-2025 Non-patient / Non-visit Dr. Alise Chau MD -[facility] Work Phone: Start: 02-14-2025 ambulatory Nikita Sorensen Facility :[facility] Start: 02-14-2025 Non-patient / Non-visit Dr. Karo jacobson MD -[facility] Start: 02-14-2025 Non-patient / Non-visit Dr. Alise Chau MD -[facility] Work Phone: Start: 02-13-2025 ambulatory Nikita Sroensen Facility :[facility] Start: 02-13-2025 End: 02-16-2025 Evaluation and management of inpatient Dr. Xochilt De Jesus MD -[facility] Work Phone: Start: 08-04-2024 End: 08-04-2024 Emergency department patient visit Madelyn Crain MD Work Phone: [facility] Comment on above: Depression, unspecif ied depression type (Primary Dx) Start: 08-13-2023 End: 08-13-2023 ambulatory NIKITA SORENSEN Facility:[facility] Start: 08-13-2023 End: 08-13-2023 Patient encounter procedure Naty Nagy DIRECT CARE WORKER.FINANCE ASSOCIATE Work Phone: [facility] Comment on above: Strep throat (Primar y Dx) Start: 07-25-2023 Refill Mare Mariel bateman DIRECT CARE WORKER - FINANCE ASSOCIATE Work Phone: [facility] Start: 06-30-2023 Refill Mare Mariel thal DIRECT CARE WORKER - FINANCE ASSOCIATE Work Phone: [facility] Start: 05-25-2023 Refill Lanny Claudio DIRECT CARE WORKER - FINANCE ASSOCIATE Work Phone: [facility] Start: 05-20-2023 End: 05-20-2023 Subsequent hospital visit by physician Nasrin Jaffe MD Work Phone: [facility] Comment on above: Mass of soft tissue of face (Primary Dx); Other specified soft tissue disorders Start: 05-02-2023 Telephone encounter Mare vargas DIRECT CARE WORKER - FINANCE ASSOCIATE Work Phone: [facility] Comment on above: Results Start: 05-01-2023 End: 05-01-2023 Patient encounter procedure Maredevora Robb DIRECT CARE WORKER - FINANCE ASSOCIATE Work Phone: [facility] Work Phone: Start: 05-01-2023 End: 05-01-2023 Periodic preventive med est patient 18-39 yrs Mare Wingal DIRECT CARE WORKER - FINANCE ASSOCIATE Work Phone: [facility] Comment on above: Annual physical exam (Primary Dx); Need for hepatitis C screening test; Screening for HIV (human immunodeficiency virus); Screening for lipid disorders Start: 04-30-2023 Telephone encounter Nasrin Jaffe MD Work Phone: [facility] Comment on above: Surgery Scheduling ( [facility]) Start: 04-30-2023 End: 04-30-2023 Office outpatient visit 15 minutes Edwina Delaney PA-C Work Phone: [facility] Comment on above: Mass of soft tissue of face (Primary Dx) Start: 04-25-2023 Refill Nikita Sorensen MD Work Phone: [facility] Start: 04-25-2023 Telephone encounter Nikita Angulo MD Work Phone: [facility] Comment on above: Release of Informati on Start: 04-19-2023 End: 04-19-2023 Emergency department patient visit [facility] Work Phone: Start: 10-24-2022 ambulatory [facility] Clin ical Communication Start: 10-24-2022 Patient encounter procedure Malena Singleton Clinical Communication Start: 10-21-2022 End: 10-21-2022 ambulatory NIKITA SORENSEN Facility:[facility] Start: 10-21-2022 End: 10-21-2022 Office outpatient visit 15 minutes Didier Kilgore APRN.CNP Work Phone: [facility] Comment on above: Sore throat (Primary Dx); Viral URI Start: 09-21-2022 End: 09-21-2022 ambulatory NIKITA SORENSEN Facility:[facility] Start: 09-21-2022 End: 09-21-2022 Patient encounter procedure Iain Lobo PA-C Work Phone: [facility] Comment on above: Viral URI (Primary D x) Start: 04-29-2022 End: 04-29-2022 Office outpatient visit 15 minutes Dora Sexton PA-C Work Phone: [facility] Comment on above: Nausea (Primary Dx) Start: 02-05-2022 End: 02-05-2022 Patient encounter procedure Jj Barry DIRECT CARE WORKER.FINANCE ASSOCIATE Work Phone: [facility] Comment on above: Rash (Primary Dx) Start: 01-19-2022 End: 01-19-2022 Emergency department patient visit [facility] Start: 06-07-2021 End: 06-07-2021 Subsequent hospital visit by physician Chetna Coburn DIRECT CARE WORKER - FINANCE ASSOCIATE Work Phone: [facility] Comment on above: COVID-19 Procedures Date [...] Start: 02-13-[address] Nikita Sroensen MD Work Phone: Start: 08-04-2024 Ecg routine [...] Start: 05-19-2023 Lipid panel Mare Br identhal DIRECT CARE WORKER - FINANCE ASSOCIATE Work Phone: Start: 05-19-2023 Transferase aspartat e amino ast sgot Mare Bridenthal DIRECT CARE WORKER - FINANCE ASSOCIATE Work Phone: Start: 05-19-2023 Lipid 1996 panel - S nan or Plasma Madelyn Crain MD Work Phone: Start: 05-01-2023 Adult depression scr eening assessment Mare Bridenthal DIRECT CARE WORKER - FINANCE ASSOCIATE Work Phone: Start: 10-21-2022 STREP A MOLECULAR (POC) Naty Nagy DIRECT CARE WORKER.FINANCE ASSOCIATE Work Phone: Start: 09-21-2022 STREP A MOLECULAR (POC) Iain Lobo PA-C Work Phone: Start: 04-29-2022 STREP A MOLECULAR (POC) Dora COLON-C Work Phone: Start: 06-07-2021 Radiologic exam chest 2 views Chetna Coburn DIRECT CARE WORKER - FINANCE ASSOCIATE Work Phone: Plan of Treatment Date Care Activity Detail Author Start: 2064 RSV Immunization for Adults (1 - 1-dose 75+ series) RSV Immunization for Adults (1 - 1-dose 75+ series) [facility] DNA SEQ Start: 2049 RSV Immunization aged 60 or older (1 - 1-dose 60+ series) RSV Immunization aged 60 or older (1 - 1-dose 60+ series) [facility] Start: 2039 Zoster Vaccines (1 of 2) Zoster Vaccines (1 of 2) [facility] Start: 05-19-2028 Lipid panel Lipid Panel [facility] Start: 02-16-2025 Patient discharge [facility] Start: 02-13-2025 Assessment of risk of venous thromboembolism [facility] Start: 02-13-2025 Inhalation therapy procedure [facility] Start: 02-13-2025 Insertion of catheter into peripheral vein [facility] Start: 02-13-2025 Providing care according to standard [facility] Start: 02-13-2025 Provision of activity privileges [facility] Start: 02-13-2025 [facility] Start: 02-13-2025 Following clinical pathway protocol [facility] Start: 02-13-2025 Admission procedure [facility] Start: 02-13-2025 Verification routine [facility] Start: 02-13-2025 Hospital admission, emergency, from emergency room, medical nature [facility] Start: 02-13-2025 [facility] Start: 02-13-2025 Consultation [facility] Start: 05-03-2024 End: 05-03-2024 Patient encounter procedure 05/03/2024 8:00 AM EST Office Visit [facility] [address] [place] [address] Mare Robb, DIRECT CARE WORKER - FINANCE ASSOCIATE [address] [place] [address] [facility] Start: 05-01-2024 Depression Screening Depression Screening [facility] Start: 04-30-2024 End: 04-30-2024 Patient encounter procedure 04/30/2024 7:00 AM EDT Office Visit [facility] [address] [place] [address] Mare Robb, DIRECT CARE WORKER - FINANCE ASSOCIATE [address] [place] [address] [facility] Start: 02-29-2024 COVID-19 Vaccine (1 - 2024-25 season) COVID-19 Vaccine ( season) [facility] Start: 02-29-2024 Influenza vaccination Influenza Vaccine (#1) [facility] Start: 10-30-2023 Depression Monitoring Depression Monitoring [facility] Start: 07-16-2023 End: 07-16-2023 Patient encounter procedure 07/16/2023 10:30 AM EST Office Visit [facility] Plastic & Reconstructive Surgery [address] [place] [address] [place] [phone] Edwina Delaney PA-C [address] [place] [address] [place] [address] [facility] Start: 07-08-2023 End: 07-08-2023 Admission to same day surgery center 07/08/2023 7:30 AM EST - 07/08/2023 8:30 AM EST Surgery [facility] MAIN OR [address] [place] [phone] Nasrin Jaffe MD [address] [place] [address] [place] [address] EXCISION OF SOFT TISSUE MASS OF THE RIGHT FOREHEAD WITH IMMEDIATE VERSUS COMPLEX CLOSURE [00034 (CPT )] [facility] MAIN OR Comment on above: EXCISION OF SOFT TISSUE MASS OF THE RIGH T FOREHEAD WITH IMMEDIATE VERSUS COMPLEX CLOSURE [84478 (CPT )] Start: 07-08-2023 End: 07-08-2023 Exc b9 les mrgn xcp sk tg f/e/e/n/l/m 1.1-2.0cm EXCISION BENIGN LESION FACE EARS EYELIDS NOSE LIPS MUCOUS MEMBRANES 1.1 TO 2.0 CM Other specified soft tissue disorders 07/08/2023 7:30 AM EST [facility] Operating Room Start: 07-08-2023 End: 07-08-2023 Repair complex f/c/c/m/n/ax/g/h/f 1.1-2.5 cm REPAIR COMPLEX WOUND OF FOREHEAD CHEEK CHIN MOUTH NECK AXILLAE GENITALIA HANDS FEET 1.1 TO 2.5 CM Other specified soft tissue disorders 07/08/2023 7:30 AM EST [facility] Operating Room Start: 07-08-2023 End: 07-08-2023 Repair intermediate f/e/e/n/l&/muc 2.5 cm/< REPAIR INTERMEDIATE WOUNDS OF FACE EARS EYELIDS NOSE LIPS MUCOUS MEMBRANES 2.5 CM OR LESS Other specified soft tissue disorders 07/08/2023 7:30 AM EST [facility] Operating Room Start: 07-08-2023 Subsequent hospital visit by physician 07/08/2023 7:30 AM EST Hospital Encounter [facility] MA[facility] OR [address] [place] [phone] Nasrin Jaffe MD [address] [facility] [address] [address] [facility] [address] [place], [place] [id number] [facility] MAIN OR Start: 06-30-2023 Depression Assessment Depression Assessment [facility] Start: 06-01-2023 End: 05-02-2024 Alanine aminotransferase [Enzymatic activity/volume] in Serum or Plasma ALT Lab Routine Mixed hyperlipidemia Expected: 06/01/2023 (Approximate), Expires: 05/02/2024 [facility] DNA SEQ [facility] Work Phone: Comment on above: Expected: 06/01/2023 (Approximate), Expi res: 05/02/2024 Start: 06-01-2023 End: 05-02-2024 Aspartate aminotransferase [Enzymatic activity/volume] in Serum or Plasma AST Lab Routine Mixed hyperlipidemia Expected: 06/01/2023 (Approximate), Expires: 05/02/2024 [facility] DNA SEQ Comment on above: Expected: 06/01/2023 (Approximate), Expi res: 05/02/2024 Start: 06-01-2023 End: 05-02-2024 Lipid 1996 panel - Serum or Plasma Lipid panel Lab Routine Mixed hyperlipidemia Expected: 06/01/2023 (Approximate), Expires: 05/02/2024 [facility] DNA SEQ Comment on above: Expected: 06/01/2023 (Approximate), Expi res: 05/02/2024 Start: 05-30-2023 End: 05-30-2023 Clinical Support 05/30/2023 8:00 AM EST Clinical Support [facility] [address] [place] [address] [place] [address] [facility] Start: 05-28-2023 End: 05-28-2023 Patient encounter procedure 05/28/2023 10:45 AM EST Office Visit [facility] Plastic & Reconstructive Surgery [address] [place] [phone] Edwina Delaney PA-C [address] [place] [address] [address] [place], [place] [phone] [facility]astic [facility] Surgery Start: 05-20-2023 End: 05-20-2023 Admission to same day surgery center 05/20/2023 11:00 AM EST - 05/20/2023 12:[address] [facility] MA[facility] OR [address] [place] [phone] Nasrin Jaffe MD [address] [place] [address] [address] [place], [place] [id number] EXCISION OF SOFT TISSUE MASS OF THE RIGHT FOREHEAD WITH IMMEDIATE VERSUS COMPLEX CLOSURE [88265 (CPT )] [facility] MAIN OR Comment on above: EXCISION OF SOFT TISSUE MASS OF THE RIGH T FOREHEAD WITH IMMEDIATE VERSUS COMPLEX CLOSURE [95007 (CPT )] Start: 05-20-2023 End: 05-20-2023 Anesthesia consultation 05/20/2023 11:00 AM EST Anesthesia Event [facility] MAIN OR [address] [place] [address] Josselyn Dobson, [facility]O [facility] Start: 05-20-2023 End: 05-20-2023 [...] Hospital Encounter [facility] MAIN OR [address] [place] [address] Nasrin Jaffe MD [address] [place] [id number] [facility] Start: 05-19-2023 End: 05-19-2023 Clinical Support 05/19/2023 7:30 AM EST Clinical Support [facility] [address] [place] [address] [facility] Start: 05-02-2023 Pneumococcal vaccination Pneumococcal Vaccine (2 of 2 - PCV) [facility] Start: 05-02-2023 Pneumococcal Vaccine: Pediatrics (0 to 5 Years) and At-Risk Patients (6 to 49 Years) (3 of 3 - PCV) Pneumococcal Vaccine: Pediatrics (0 to 5 Years) and At-Risk Patients (6 to 49 Years) (3 of 3 - PCV) [facility] Start: 05-02-2023 Pneumococcal Vaccine: Pediatrics (0 to 5 Years) and At-Risk Patients (6 to 64 Years) (3 - PCV) Pneumococcal Vaccine: Pediatrics (0 to 5 Years) and At-Risk Patients (6 to 64 Years) (3 - PCV) [facility] Start: 05-02-2023 Pneumococcal Vaccine: Pediatrics (0 to 5 Years) and At-Risk Patients (6 to 64 Years) (3 of 3 - PCV) Pneumococcal Vaccine: Pediatrics (0 to 5 Years) and At-Risk Patients (6 to 64 Years) (3 of 3 - PCV) [facility] Start: 05-01-2023 End: 05-01-2024 Comprehensive metabolic 1998 panel - Serum or Plasma Comprehensive metabolic panel Lab Routine Annual physical exam Expected: 05/01/2023 (Approximate), Expires: 05/01/2024 [facility] DNA SEQ Comment on above: Expected: 05/01/2023 (Approximate), Expi res: 05/01/2024 Start: 05-01-2023 End: 05-01-2024 Hepatitis C virus Ab [Presence] in Serum or Plasma by Immunoassay Hepatitis C antibody Lab Routine Need for hepatitis C screening test Expected: 05/01/2023 (Approximate), Expires: 05/01/2024 [facility] Comment on above: Expected: 05/01/2023 (Approximate), Expi res: 05/01/2024 Start: 05-01-2023 End: 05-01-2024 HIV 1+2 Ab+HIV1 p24 Ag [Presence] in Serum or Plasma by Immunoassay HIV-1 and HIV-2 Antigen-Antibody Screen Lab Routine Screening for HIV (human immunodeficiency virus) Expected: 05/01/2023 (Approximate), Expires: 05/01/2024 [facility] DNA SEQ Comment on above: Expected: 05/01/2023 (Approximate), Expi res: 05/01/2024 Start: 05-01-2023 End: 05-01-2024 Lipid 1996 panel - Serum or Plasma Lipid panel Lab Routine Annual physical exam Screening for lipid disorders Expected: 05/01/2023 (Approximate), Expires: 05/01/2024 [facility] Work Phone: Comment on above: Expected: 05/01/2023 (Approximate), Expi res: 05/01/2024 Start: 05-01-2023 End: 05-01-2023 Patient encounter procedure 05/01/2023 9:20 AM EDT Office Visit [facility] [address] [place] [address] [place] [address] Mare Robb APRN - DAT [address] [place] [address] [place] [address] [facility] Start: 04-30-2023 End: 04-30-2023 Patient encounter procedure 04/30/2023 1:30 PM EDT Office Visit [facility] Plastic & Reconstructive Surgery [address] [place] [address] [place] [phone] Edwina Delaney PA-C [address] [place] [address] [place] [address] [facility] Start: 04-19-2023 [facility] Start: 02-28-2023 Influenza vaccination [facility] Start: 10-25-2022 End: 10-25-2022 Patient encounter procedure 10/25/2022 Office Visit Family Medicine Mare Robb, KEY[place] - FINANCE ASSOCIATE [address] [place] [address] [facility] Start: 06-30-2022 DEPRESSION ASSESSMENT DEPRESSION ASSESSMENT [facility] Start: 05-20-2022 Meningococcal (ACWY) vaccine (3 - Risk start 2-23 months series) [facility] Start: 02-28-2022 Influenza vaccination INFLUENZA (#1) [facility] Start: 06-30-2021 DEPRESSION ASSESSMENT DEPRESSION ASSESSMENT [facility] Start: 02-28-2021 Influenza vaccination Flu vaccine (#1) [facility] Start: 05-20-2018 Pneumococcal 0-64 years Vaccine (3 of 4 - PCV13) Pneumococcal 0-64 years Vaccine (3 of 4 - PCV13) [facility] Start: 07-15-2017 Hepatitis B Vaccine (3 of 3 - 3-dose series) Hepatitis B Vaccine (3 of 3 - 3-dose series) [facility] Start: 07-15-2017 Hepatitis B Vaccines (3 of 3 - 3-dose series) Hepatitis B Vaccines (3 of 3 - 3-dose series) [facility] Start: 07-15-2017 Hepatitis B Vaccines (4 of 4 - 4-dose series) Hepatitis B Vaccines (4 of 4 - 4-dose series) [facility] Start: 07-15-2017 Meningococcal Vaccine (2 - Risk 2-dose series) Meningococcal Vaccine (2 - Risk 2-dose series) [facility] Start: 2008 Urine microalbumin profile DTAP,TDAP,TD (1 - Tdap) [facility] Start: 2008 Zoster Vaccines (1 of 2) Zoster Vaccines (1 of 2) [facility] Start: 2007 HEPATITIS C SCREENING HEPATITIS C SCREENING [facility] Start: 2007 Hepatitis C screening Hepatitis C Screening [facility] Start: 2007 HIV SCREENING HIV SCREENING [facility] Start: 2007 HIV screening HIV Screening [facility] Start: 2004 HIV screening HIV screen [facility] Start: 2002 Varicella vaccination Varicella Vaccines (1 of 2 - 13+ 2-dose series) [facility] Start: 03-17-2002 Varicella vaccination Varicella Vaccines (1 of 2 - 2-dose childhood series) [facility] Start: 2001 Adult depression screening assessment DEPRESSION SCREENING [facility] Start: 2001 COVID-19 Vaccine (1) COVID-19 Vaccine (1) [facility] Start: 2000 DTaP/Tdap/Td vaccine (6 - Tdap) DTaP/Tdap/Td vaccine (6 - Tdap) [facility] Start: 2000 DTaP/Tdap/Td Vaccines (6 - Tdap) DTaP/Tdap/Td Vaccines (6 - Tdap) [facility] Start: 2000 Urine microalbumin profile DTaP,Tdap,Td Vaccine (6 - Tdap) [facility] Start: 1999 Meningococcal B vaccine (1 of 4 - Increased Risk Bexsero 2-dose series) Meningococcal B vaccine (1 of 4 - Increased Risk Bexsero 2-dose series) [facility] Start: 1999 Meningococcal B Vaccine (1 of 4 - Increased Risk) Meningococcal B Vaccine (1 of 4 - Increased Risk) [facility] Start: 1995 PNEUMOCOCCAL (1 - PCV) PNEUMOCOCCAL (1 - PCV) [facility] Start: 09-11-1990 Hib vaccine (1 of 1 - Risk 1-dose series) Hib vaccine (1 of 1 - Risk 1-dose series) [facility] Start: 09-11-1990 HIB Vaccines (1 of 1 - Risk 1-dose series) HIB Vaccines (1 of 1 - Risk 1-dose series) [facility] Start: 1989 COVID-19 VACCINE (#1) COVID-19 VACCINE (#1) [facility] Start: 1989 HEPATITIS B (1 of 3 - 3-dose series) HEPATITIS B (1 of 3 - 3-dose series) [facility] Start: 1989 Hepatitis C screening Hepatitis C screen [facility] Start: 1989 HIV screening HIV Screening [facility] Patient Education [facility] Work Phone: Patient referral [facility] Work Phone: Tissue exam [facility] Work Phone: Comment on above: Release Upon Ordering for 1 Occurrences starting 05/20/2023 Immunizations Immunization Date Immunization Notes Care Provider Fa segundo 05-02-2022 pneumococcal polysaccharide vaccine, 23 valent Malena Polanco RN [facility] 04-12-2019 influenza, injectabl e, quadrivalent, preservative free [facility] Work Phone: [facility] Work Phone: 04-12-2019 influenza virus vacc ine, unspecified formulation Malena Polanco RN [facility] 05-20-2017 hepatitis B vaccine, adult dosage [facility] FINANCE ASSOCIATE Work Phone: [facility] Work Phone: 05-20-2017 influenza virus vacc ine, unspecified formulation [facility] Work Phone: [facility] Work Phone: 05-20-2017 influenza, injectabl e, quadrivalent, contains preservative Malena Polanco RN [facility] 05-20-2017 Influenza, Quadv, 6 mo and older, IM (Fluzone, Flulaval) [facility] FINANCE ASSOCIATE Work Phone: [facility] 05-20-2017 meningococcal oligosaccharide (groups A, C, Y and W-135) diphtheria toxoid conjugate vaccine (MCV4O) [facility] ASSOCIATE Work Phone: [facility] Work Phone: 05-20-2017 pneumococcal polysaccharide vaccine, 23 valent [facility] FINANCE ASSOCIATE Work Phone: [facility] Work Phone: 05-20-2017 meningococcal vaccin e of unknown formulation and unknown serogroups Chetna Coburn [facility] Work Phone: [facility] Work Phone: 05-20-2016 hepatitis B vaccine, unspecified formulation [facility]tna Jerald [facility] Work Phone: [facility] Work Phone: 05-20-2016 meningococcal polysaccharide (groups A, C, Y and W-135) diphtheria toxoid conjugate vaccine (MCV4P) [facility] Work Phone: [facility] Work Phone: 05-20-2016 pneumococcal polysaccharide vaccine, 23 valent [facility] Work Phone: [facility] 05-31-2015 meningococcal polysaccharide (groups A, C, Y and W-135) diphtheria toxoid conjugate vaccine (MCV4P) [facility] Work Phone: [facility] Work Phone: 05-31-2015 pneumococcal polysaccharide vaccine, 23 valent [facility] Work Phone: [facility] Work Phone: 05-28-2015 influenza, injectabl e, quadrivalent, preservative free [facility] Work Phone: [facility] Work Phone: 02-17-2002 measles, mumps and rubella virus vaccine [facility] Work Phone: [facility] Work Phone: 02-18-1995 diphtheria, tetanus toxoids and acellular pertussis vaccine, unspecified formulation [facility] Work Phone: [facility] Work Phone: 02-18-1995 trivalent poliovirus vaccine, live, oral [facility] Work Phone: [facility] Work Phone: 12-21-1990 diphtheria, tetanus toxoids and pertussis vaccine Chetna Coburn APRN - FINANCE ASSOCIATE Work Phone: [facility] Work Phone: 12-21-1990 measles, mumps and rubella virus vaccine Chetna Coburn APRN - FINANCE ASSOCIATE Work Phone: [facility] Work Phone: 12-21-1990 trivalent poliovirus vaccine, live, oral Chetna Coburn APRN - FINANCE ASSOCIATE Work Phone: [facility] Work Phone: 07-09-1990 haemophilus influenz ae type b vaccine, conjugate unspecified formulation hCetna Coburn APRN [facility] Work Phone: [facility] Work Phone: 07-09-1990 hepatitis B vaccine, pediatric or pediatric/adolescent dosage Chetna Coburn APRN - [facility] Work Phone: [facility] Work Phone: 03-03-1990 diphtheria, tetanus toxoids and pertussis vaccine Chetna Coburn APRN - FINANCE ASSOCIATE Work Phone: [facility] Work Phone: 1989 diphtheria, tetanus toxoids and pertussis vaccine Chetna Coburn DIRECT CARE WORKER - FINANCE ASSOCIATE Work Phone: [facility] Work Phone: 1989 trivalent poliovirus vaccine, live, oral Chetna Coburn APRN - FINANCE ASSOCIATE Work Phone: [facility] Work Phone: 1989 diphtheria, tetanus toxoids and pertussis vaccine Chetna Coburn DIRECT CARE WORKER - FINANCE ASSOCIATE Work Phone: [facility] Work Phone: 1989 trivalent poliovirus vaccine, live, oral Chetna Coburn APRN - FINANCE ASSOCIATE Work Phone: [facility] Work Phone: Payers Date Payer Category Payer Self-pay [id number] 2023 Commercial Managed C are - HMO [employer] [id number] 2023 Unknown [id number] 2023 Unknown [id number] 2022 Medicaid [id number] 2020 Medicaid [id number] 2018 Unknown [employer] [id number] 2018-Present [phone] [address] [place] [address] [id number] Unknown [id number] Unknown [id number] Unknown [id number] [id number]. 462 Unknown [id number] 2.16.840.1.568772.3.579.2. 462 Unknown [id number] 2.16.840.1.290333.3.579.2. 462 Unknown [id number] 2.16.840.1.554981.3.579.2. 462 Unknown [id number] 2.16.840.1.838289.3.579.2. 462 Unknown [id number] 2.16.840.1.729583.3.579.2. 462 Unknown [id number] 2.16.840.1.525544.3.579.2. 462 Unknown [id number] 2.16.840.1.357489.3.579.2. 462 Unknown [id number] 2.16.840.1.917421.3.579.2. 462 Unknown [id number] 2.16.840.1.403006.3.579.2. 462 Unknown [id number] 2.16.840.1.105153.3.579.2. 462 Unknown [id number] 2.16.840.1.044025.3.579.2. 462 Unknown [id number] 2.16.840.1.134156.3.579.2. 462 Unknown [id number] 2.16.840.1.218741.3.579.2. 462 Unknown [id number] 2.16.840.1.146308.3.579.2. 462 Unknown [id number] 2.16.840.1.455906.3.579.2. 462 Unknown [id number] 2.16.840.1.882486.3.579.2. 462 Unknown [id number] 2.16.840.1.113748.3.579.2. 462 Social History Date Type Detail Facility Start: 06-05-2015 End: 02-13-2025 Tobacco smoking status [facility] Ex-smoker [employer] Phone: End: 05-19-2015 History of tobacco use Current smoker [employer] Phone: Start: 06-05-2015 End: 05-02-2022 Tobacco use and exposure Smokeless tobacco non-user [employer] Phone: Start: 10-18-2019 End: 04-30-2023 Alcohol intake Current non-drinker of alcohol (finding) [employer] Work Phone: Start: 10-18-2019 End: 05-01-2023 Alcohol intake [facility] Work Phone: Start: 1990 Sex Assigned At Not on file [facility] [employer] Phone: Start: 01-19-2022 End: 04-19-2023 Tobacco smoking status NHIS Unknown if [facility] smoked [facility] Start: 06-18-2021 Occasional [facility] Start: 06-18-2021 None [facility] Start: 06-18-2021 Cigarettes [facility] Start: 1989 Sex Assigned At Male S [facility] DNA SEQ Start: 01-29-2012 Tobacco smoking stat us UTIS Smokes tobacco daily [facility] Start: 02-05-2022 End: 08-13-2023 Alcohol intake Not Asked [facility] End: 05-19-2015 History of tobacco use Cigarette Smoker [facility] DNA SEQ Start: 06-18-2022 End: 05-01-2023 Tobacco use panel [facility] Start: 05-01-2022 Gender identity Identifies as male gender (finding) [facility] Start: 05-01-2022 Sexual orientation Heterosexual (fin ding) [facility] Start: 05-01-2023 End: 08-04-2024 Alcohol intake Ex-drinker (finding) [facility] How often to you hav e a drink containing alcohol? Never [facility] How many standard drinks containing alcohol do you have on a typical day? Patient does not drink [facility] (I/We) worried wheth er (my/our) food would run out before (I/we) got money to buy more. Never true [facility] In the past 12 month s, was there a time when you were not able to pay the mortgage or rent on time? No [facility] Start: 05-01-2023 Alcohol Comment Use to drink [facility] How often to you hav e a drink containing alcohol? 4 or more times a week [facility] How many standard drinks containing alcohol do you have on a typical day? 1 or 2 [facility] Start: 01-28-2022 Sex Male (finding) Areli Chau alth Goals Date Patient Goal Desired Activity /State Functional Status Date Assessment Result Facility 02-16-2025 Functional status Ambulates;Up ad ludy [facility] Work Phone: Mental Status Date Assessment Result Facility 02-15-2025 Cognitive function Voice/Name [facility] Work Phone: Clinical Notes 02-05-2022 to 04-11-2025 Note Date & Type Note Facility 04-11-2025 Note [facility] Medical Records Department [address] [place] [address] Discharge Summary 04/11/25 1407 MR#: [id number] Acct: [id number] Name: ANNAMARIE LARIOS Rep #: [id number] : 1990 34 From: Kenneth Peter MD PCP: Dr. Nikita Sorensen MD Status:DIS IN Location: [place] [address] Providers Date of Admission: 04/07/25 Primary Care [...] and alcohol use disorder who presented to [facility] ED 04/07/2025 with family for admission [...] Up: Nikita Sorensen MD [Primary Care Provider, [facility]] Disposition Disposition (needs filled in before D/C Order can be placed): Home, Self Care Charges/Coding Visit Charges Inpatient E M: 72993 Disch Hosp >30min 04/11/25 1409 Cosigner Signature (if applicable): CC: Dr. Shelton (more content not included)... [facility] 04-03-2025 Note [facility] Medical Records Department [address] [place] [address] Discharge Summary 04/03/25 0745 MR#: [id number] Acct: [id number] Name: ANNAMARIE LARIOS Rep #: [id number] : 1990 34 From: Ulysses Hernandez MD PCP: Dr. Nikita Sorensen MD Status:ADM IN [facility] Providers Date of Admission: 03/31/25 Primary Care [...] Care Charges/Coding Visit Charges Inpatient E M: 70564 Disch Hosp >30min 04/03/25 0856 Cosigner Signature (if applicable): CC: Dr. Nikita Sorensen MD; Dr. Ulysses Hernandez MD Signed [facility] 02-16-2025 Discharge summary Note Date/Time February 16, 2025 12:15pm [facility] Medical Records Department [address] [place] [address] Instructions for Home/Discharge Instructions 02/16/25 1059 MR#: [id number] Acct: [id number] Name: ANNAMARIE LARIOS Rep #:[id number] 3 : 1990 34 From: Angela Chau [...] Dr. Xochilt De Jesus MD ~ Signed [facility] Work Phone: 1(553) 599-367008-20-2025 Discharge summary [facility] Medical Records Department [address] [facility] [place] [address] Instructions for Home/Discharge Instructions 02/16/25 1059 MR#: [id number] Acct: [id number] Name: ANNAMARIE LARIOS Rep #:[id number] 3 : 1990 34 From: Angela Chau [...] Dr. Xochilt De Jesus MD ~ Signed [facility]08-20-2025 [facility] Medical Records Department [address] [place] [address] Discharge Summary 02/16/25 1059 MR#: [id number] Acct: [id number] Name: ANNAMARIE LARIOS Rep #: [id number] : 1990 34 From: Angela Chau MD PCP: Dr. Nikita Sorensen MD Status:DIS IN [facility] [facility] [place]-1 Providers Date of Admission: 02/13/25 Date of [...] TSH and 2D echo * check D wofmk-I-wzyet was elevated at over 2. CTA of [...] atraumatic, hearing grossly normal (more content not included)...[facility]08-19-2025 Progress note Author Angela Chau [facility] Note Date/Time February 15, 2025 3: 31pm [facility] Medical Records Department [address] [place] [address] Progress Note 02/15/25 1205 MR#: [id number] Acct: [id number] Name: ANNAMARIE LARIOS Rep #:[id number] 8 : 1990 34 From: Angela Chau MD PCP: Dr. Nikita Sorensen MD Status:ADM IN [facility] Subjective Subjective Patient seen and examined with [...] 2. Prominent diffuse hepatic steatosis. Reading Location: [facility] Physical Exam Const alert, oriented x3 and [...] TSH and 2D echo * check D vhdsu-O-wiwsu was elevated at over 2. CTA of [...] dc tomorrow. Charges/Coding Visit Charges Inpatient E&M: 39655 Subs Hosp L2 02/15/25 1531 <Electronically signed by Angela Chau MD> Angela Chau MD Cosigner Signature (if applicable): CC: ~ Signed [facility] Work Phone: 1(636) 241-608208-19-2025 Progress note [facility] Medical Records Department [address] [place] [address] Progress Note 02/15/25 1205 MR#: [id number] Acct: [id number] Name: ANNAMARIE LARIOS Rep #:[id number] 8 : 1990 34 From: Angela Chau MD PCP: Dr. Nikita Sorensen MD Status:ADM IN Location: [facility] IX053-1 Subjective Subjective Patient seen and examined with [...] Physician: Angela Chau Performed By: Brad Felix, [facility] Chest CTA 02/14/25 15:18 IMPRESSION: 1. No acute intrathoracic pathology. No pulmonary arterial emboli. 2. Prominent diffuse hepatic steatosis. Reading Location: [facility] Physical Exam Const alert, oriented x3 and [...] TSH and 2D echo * check D bkgwp-F-oykqo was elevated at over 2. CTA of [...] dc tomorrow. Charges/Coding Visit Charges Inpatient E&M: 86158 Subs Hosp L2 02/15/25 1530 Angela Chau MD Cosigner Signature (if applicable): CC: ~ Signed [facility]08-18-2025 Progress note Author Angela Chau [facility] Note Date/Time February 14, 2025 4: 42pm [facility] Medical Records Department [address] [place] [address] Progress Note 02/14/25 1128 MR#: [id number] Acct: [id number] Name: ANNAMARIE LARIOS Rep #:[id number] 3 : 1990 34 From: Angela Chau MD PCP: Dr. Nikita Sorensen MD Status:ADM IN Location: [facility]3 XS253-7 Subjective Subjective Patient seen and examined. He [...] % (Auto) 66.7, Lymph % (Auto) 22.1, Foster % (Auto) 9.5, Eos % (Auto) 0.1, [...] % (Auto) 65.2, Lymph % (Auto) 22.1, Foster % (Auto) 9.2, Eos % (Auto) 2.1, [...] TSH and 2D echo * check D tsgij-Z-etypq was elevated at over 2. CTA of [...] encourage ambulation Charges/Coding Visit Charges Inpatient E&M: 18498 Subs Hosp L2 02/14/25 1642 <Electronically signed by Angela Chau MD> Angela Chau MD Cosigner Signature (if applicable): CC: ~ Signed [facility] Work Phone: 1(234) 505-926608-18-2025 Progress note [facility] Medical Records Department [address] [place] [address] Progress Note 02/14/25 1128 MR#: [id number] Acct: [id number] Name: ANNAMARIE LARIOS Rep #:[id number] 3 : 1990 34 From: Angela Chau MD PCP: Dr. Nikita Sorensen MD Status:ADM IN [facility] Subjective Subjective Patient seen and examined. He [...] % (Auto) 66.7, Lymph % (Auto) 22.1, Foster % (Auto) 9.5, Eos % (Auto) 0.1, [...] % (Auto) 65.2, Lymph % (Auto) 22.1, Foster % (Auto) 9.2, Eos % (Auto) 2.1, [...] TSH and 2D echo * check D dhduh-N-ryueq was elevated at over 2. CTA of [...] encourage ambulation Charges/Coding Visit Charges Inpatient E&M: 35109 Subs Hosp L2 02/14/25 1642 Angela Chau MD Cosigner Signature (if applicable): CC: ~ Signed [facility]08-18-2025 Radiology Diagnostic study note [facility] Imaging Services [address] [place], [place] [address] CTA Chest W/WO Contrast MR#: [id number] Acct: [id number] Name: ANNAMARIE LARIOS Rep #: [id number] 6 : 1990 M 34 From: Dillan Barrett MD PCP: Dr. Nikita Sorensen MD Status: ADM IN Study:CTA Chest W/WO Contrast Date of Exam: 02/14/25 Exam# [id number] Ordering Dr: Alise Chua MD PROCEDURE: CTA CHEST W/WO CONTRAST 02/14/2025 [...] 2. Prominent diffuse hepatic steatosis. Reading Location: [facility] CC: Dr. Nikita Sorensen MD; Dr. Angela Chau MD ~ Client Advisor: Signed [facility]08-18-2025 Discharge summary Author Deep Holman [facility] Note Date/Time February 13, 2025 11 :45pm [facility] Medical Records Department [address] [place] [address] Emergency Department Summary 02/13/25 MR#: [id number] Acct: [id number] Name: ANNAMARIE LARIOS Rep #:[id number] 1 : 1990 34 From: Deep Weiss PCP: Dr. Nikita Sorensen MD Status:ADM IN Location: [place] [address] HPI History of Present Illness Chief Complaint: [...] worse. Patient does not take any anticoagulants. [facility] Medical History (Updated 02/13/25 @ 18:21 [...] Management Discussion w/another healthcare provider: Hospitalist and driver/sales workers/Case management Treatment and Re-Evaluation Narrative: Patient was evaluated by home health care social worker. Patient is not having any [...] MD [Primary Care Provider] - Print Language: Sudanese Disposition Disposition: Acute Care Hospital [facility] What to do if you have Problems For any increased pain, shortness of breath, bleeding, nausea or vomiting, chestpain, or any unexpected problems, contact your Primary Care Provider. Call [facility] ([phone]) or report to the closest Emergency Room. Call 911 if necessary. 02/13/25 1837 <Electronically signed by Deep Holman DO> Cosigner Signature (if applicable): CC: Dr. Nikita Sorensen MD ~ Signed [facility] Work Phone: 1(765) 737-399308-17-2025 Discharge summary [facility] Medical Records Department [address] [place] [address] Emergency Department Summary 02/13/25 MR#: [id number] Acct: [id number] Name: ANNAMARIE LARIOS Rep #:[id number] 1 : 1990 34 From: Deep Weiss PCP: Dr. Nikita Sorensen MD Status:ADM IN Location: [facility] BW155-6 HPI History of Present Illness Chief Complaint: [...] worse. Patient does not take any anticoagulants. [facility] Medical History (Updated 02/13/25 @ 18:21 [...] Management Discussion w/another healthcare provider: Hospitalist and driver/sales workers/Case management Treatment and Re-Evaluation Narrative: Patient was evaluated by home health care social worker. Patient is not having any [...] MD [Primary Care Provider] - Print Language: Sudanese Disposition Disposition: Acute Care Hospital [facility] What to do if you have Problems For any increased pain, shortness of breath, bleeding, nausea or vomiting, chestpain, or any unexpected problems, contact your Primary Care Provider. Call [facility] ([phone]) or report tothe closest Emergency Room. Call 911 if necessary. 02/13/25 6534 Cosigner Signature (if applicable): CC: Dr. Nikita Sorensen MD ~ Signed [facility]08-17-2025 History and physical note Author Xochilt De Jesus [facility] Note Date/Time February 13, 2025 7: 16pm [facility] Medical Records Department [address] [place] [address] H&P Exam - Hospitalist 02/13/25 1848 MR#: [id number] Acct: [id number] Name: ANNAMARIE LARIOS Rep #:[id number] 5 : 1990 34 From: Xochilt De Jesus MD PCP: Dr. Nikita Sorensen MD Status:ADM IN Location: [facility] ZO465-5 HPI - General General Date of Admission: 02/13/25 Date of Service: 02/13/25 Chief Complaint: Right eye redness and alcohol use HPI Narrative ANNAMARIE LARIOS, is a 34 M with a history of depression, chewing tobacco use, remote history of alcohol use presented [facility] ED 02/13/2025 initially reporting some redness [...] so he just does nottake them out. [facility] Medical History (Updated 02/13/25 @ 18:21 [...] % (Auto) 66.7, Lymph % (Auto) 22.1, Foster % (Auto) 9.5, Eos % (Auto) 0.1, [...] 56 Minutes Charges/Coding Visit Charges Inpatient E&M: 77471 Init Hosp L2 02/13/256 <Electronically signed by Xochilt De Jesus MD> Cosigner Signature (if applicable): CC: Dr. Nikita Sorensen MD; Dr. Xochilt De Jesus MD~ Signed [facility] Work Phone: 1(110) 972-510208-17-2025 Evaluation note* Diagnosis Onset Date Resolution Status Admit Date Alcohol withdrawal acute February 13, 2025 6:49pm Subconjunctival hemorrhage o f right eye acute February 13 6:49pm [facility] Work Phone: 1(937) 528-473708-17-2025 History and physical note [facility] Medical Records Department [address] [place] [address] H&P Exam - Hospitalist 02/13/25 1848 MR#: [id number] Acct: [id number] Name: ANNAMARIE LARIOS Rep #:[id number] : 1990 34 From: Xochilt De Jesus MD PCP: Dr. Nikita Sorensen MD Status:ADM IN Location: [place] [address] HPI - General General Date of Admission: 02/13/25 Date of Service: 02/13/25 Chief Complaint: Right eye redness and alcohol use HPI Narrative ANNAMARIE LARIOS, is a 34 M with a history of depression, chewing tobacco use, remote history of alcohol use presented [facility] ED 02/13/2025 initially reporting some redness [...] so he just does nottake them out. [facility] Medical History (Updated 02/13/25 @ 18:21 [...] % (Auto) 66.7, Lymph % (Auto) 22.1, Foster % (Auto) 9.5, Eos % (Auto) 0.1, [...] 56 Minutes Charges/Coding Visit Charges Inpatient E&M: 62019 Init Hosp L2 02/13/251915 Cosigner Signature (if applicable): CC: Dr. Nikita Sorensen MD; Dr. Xochilt De Jesus MD~ Signed [facility]02-05-2025 Emergency department Note* Jimmy Flood RN - 08/04/2024 4:28 AM EST Complete report provided. To [facility]. [id number] Emergency department Note* Jimmy Flood RN - 08/04/2024 4:28 AM EST Complete report provided. To [facility]. * Jimmy Flood RN - 08/04/2024 4:26 AM EST A/ox3. Independent to stretcher. Discharged to [facility]. Belongings set with ems transport. * Paras [...] COVID 04/2021 Eczema IBS (irritable bowel syndrome) Foster exposure MRSA (methicillin resistant staph aureus) culture [...] grade. . Her biological mom lives in [place]. No significant other right now. 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 NOTE: This [...] Culture. Procedure Abnormality Status --------- ------ Complete Urinalysis[[id number]] Abnormal Final result Please view results for [...] department for psychiatric evaluation. [facility] patient is afebrile hemodynamically stable. Alcohol elevated to 274. Mild elevation of transaminases likely secondary to alcohol use. Patient medically cleared for discharge to [facility] for further psychiatric evaluation. Diagnoses as [...] 08/04/2024 12:54 AM EST Emergency Department Encounter [facility] EMERGENCY DEPT Patient: Neal Larios : [...] emergency department for depression. Patient sent from [facility] for medical clearance. Patient presented there with his mother who has been worried about him. He states he had some social issues ongoing with his ex partner. Denies any abuse. Denies hallucinations alcohol drug use homicidal thoughts. Apparently at [facility] he endorsed SI but denies that here. Denies prior attempts. States he is not on any psychiatric medications but he was given Ativan and hydroxyzine reportedly at [facility]. He lives at home with his 10-year-old [...] 12:54 AM EST Patient was sent from [facility] for medical clearance. Patient is depressed. Patient denies SI to RN. Patient told PES that he is SI. documented in this [facility]02-05-2025 Emergency department Note* Jimmy Flood RN - 08/04/2024 4:26 AM EST A/ox3. Independent to stretcher. Discharged to [facility]. Belongings set with ems transport. [address]05-2025 Emergency department Note* Paras Pope - 08/04/2024 3:19 AM EST Luzma Tech at bedside obtaining vitals. [address]05-2025 Emergency department Note* LILLIE Hartley - 08/04/2024 1:51 AM EST CHRISTO Fox giving patient warm blanket for comfort. [address]2025 Emergency department Note* LILLIE Hartley - 08/04/2024 1:28 AM EST EKG at patient bedside. [address]2025 Emergency department Note* LILLIE Hartley - 08/04/2024 1:[address] Tellez at patient bedside. [address]2025 Emergency department Note* Paras Pope - 08/04/2024 1:12 AM EST Pt changed into 2 gowns and wanded by officer. Pt has 1 belonging bag. with pt in 47. [id number] Emergency department Triage note* Ruddy Eugene RN - 08/04/2024 12:54 AM EST Patient was sent from [facility] for medical clearance. Patient is depressed. Patient denies SI to RN. Patient told PES that he is SI. [facility]For[facility]p90-07-8633 NotePatient was sent from [facility] for medical clearance. Patient is depressed. Patient denies SI to RN. Patient told PES that he is SI.[facility] 08-04-2024 Physician Emergency department Note* Prosper Tellez DO - 08/04/2024 12:54 AM EST EMERGENCY DEPARTMENT ENCOUNTER Pt Name: Neal Larios Birthdate 1990 Date of evaluation: 08/04/2024 ED Provider: Prosper Tellez DO CHIEF COMPLAINT Chief Complaint Patient presents with Suicidal Patient was sent from [facility] for medical clearance. Patient is depressed. Patient [...] COVID 04/2021 Eczema IBS (irritable bowel syndrome) Foster exposure MRSA (methicillin resistant staph aureus) culture positive Substance abuse (CMS/HCC) ([facility]) SURGICAL HISTORY Past Surgical History: [...] grade. . Her biological mom lives in [place]. No significant other right now. 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 NOTE: This [...] Culture. Procedure Abnormality Status --------- ------ Complete Urinalysis[[id number]] Abnormal Final result Please view results for [...] use. Patient medically cleared for discharge to [facility] for further psychiatric evaluation. Diagnoses as [...] Crain MD at 08/04/2024 6:10 AM EST [id number] Physician Emergency department Note* Madelyn Crain MD - 08/04/2024 12:54 AM EST Emergency Department Encounter [facility] EMERGENCY DEPT Patient: Neal Larios : [...] emergency department for depression. Patient sent from [facility] for medical clearance. Patient presented there [...] was given Ativan and hydroxyzine reportedly at [facility]. He lives at home with his 10-year-old [...] for clarification.) Madelyn Crain MD Acute Care [facility] Madelyn Crain MD 08/04/24 0141 [employer] Phone: 1([phone]) 804-604902-14-2024 NoteHNO ID: [id number] Author: NATY NAGY APRN.[facility] Service: ? Author Type: Nurse Practitioner Type: Progress Notes Filed: 08/14/2023 09:40 Note Text: This note was created using CREAT[employer]HE [employer]riter. Subjective Annamarie Larios is a 33 year [...] (attention deficit hyperactivity disorder) Bipolar 1 disorder ([facility]) Eczema Hx MRSA infection IBS (irritable bowel syndrome) Substance abuse ([facility]) No past surgical history on [...] tenderness or frontal sinus tenderness. Mouth/Throat: Lips: [place]. No lesions. Mouth: Mucous membranes are moist. [...] eye: Left conjunctiva i (more content not included)...[facility]02-14-2024 History of Present illness Narrative* Naty Nagy APRN.[facility] - 08/13/2023 7:31 PM EST This note was created using [employer]. Subjective Annamarie Larios is a 33 year [...] (attention deficit hyperactivity disorder) Bipolar 1 disorder ([facility]) Eczema Hx MRSA infection IBS (irritable bowel syndrome) Substance abuse ([facility]) No past surgical history on [...] tenderness or frontal sinus tenderness. Mouth/Throat: Lips: [place]. No lesions. Mouth: Mucous membranes are moist. [...] BP 142/86 Temp 101.5. 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 I have reviewed the Advanced Practice Registered Nurse (DIRECT CARE WORKER) Student's documentation and verified the findings in the note as written. Any additions or changes are noted in bold/italics. Signature: Naty Nagy Date: 08/14/2023 Time: 9:40 AM [facility] Tele[facility] encounter Note * Telephone Encounter - KEYONA Parker CNP - 07/25/2023 11:41 AM EST Rx sent. Follow up as scheduled. [facility] [id number] Miscellaneous Notes* Telephone Encounter - KEYONA Parker CNP - 07/25/2023 11:41 AM EST Rx sent. Follow up as scheduled. * Telephone Encounter - Radha Ennis - 07/25/2023 10:04 AM EST Prescription Request: Last medication check: 10/25/22 Last physical exam: 05/01/23 Next scheduled appointment: 05/03/24 Last date of refill on this medication 07/01/23 documented in this [facility]01-26-2024 Telephone encounter Note* Telephone Encounter - Radhajohn paul Ennis - 07/25/2023 10:04 AM EST Prescription Request: Last medication check: 10/25/22 Last physical exam: 05/01/23 Next scheduled appointment: 05/03/24 Last date of refill on this medication 07/01/23 [id number] Telephone encounter Note* Telephone Encounter - KEYONA Fierro CNP - 07/01/2023 2:16 PM EST Revie [facility] HospitalFwtgyz73-51-5447 Miscellaneous Notes* Telephone Encounter - KEYONA Fierro CNP - 07/01/2023 2:16 PM EST Revie * Telephone Encounter - Chen Wang MA - 07/01/2023 11:14 AM EST Prescription Request: Last medication check: none Last physical exam: 05/01/23 Next scheduled appointment: 05/03/24 Last date of refill on this medication 05/26/23 30 day no refill documented in this [place] [address]-02-2024 Telephone encounter Note* Telephone Encounter - Chen Wang MA - 07/01/2023 11:14 AM EST Prescription Request: Last medication check: none Last physical exam: 05/01/23 Next scheduled appointment: 05/03/24 Last date of refill on this medication 05/26/23 30 day no refill [place] [id number] Miscellaneous Notes* Telephone Encounter - KEYONA Fierro CNP - 05/26/2023 4:52 PM EST * Telephone Encounter - Chen Wang MA - 05/26/2023 11:56 AM EST Prescription Request: Last medication check: none Last physical exam: 05/01/23 Next scheduled appointment: 05/23/24 Last date of refill on this medication 04/25/23 30 day no refill documented in this [facility]11-27-2023 Telephone encounter Note* Telephone Encounter - KEYONA Fierro CNP - 05/26/2023 4:52 PM EST [place] [id number] Telephone encounter Note* Telephone Encounter - Chen Wang MA - 05/26/2023 11:56 AM EST Prescription Request: Last medication check: none Last physical exam: 05/01/23 Next scheduled appointment: 05/23/24 Last date of refill on this medication 04/25/23 30 day no refill [place] [id number] Telephone encounter Note* Telephone Encounter - KEYONA Fierro CNP - 05/20/2023 4:10 PM EST Noted [facility]Axddnw75-33-8107 Miscellaneous Notes* Telephone Encounter - KEYONA Fierro [...] recommend starting cholesterol medication documented in this [facility]11-21-2023 History and physical note* Nasrin Jaffe MD - 05/20/2023 1:03 PM EST Images from the original note were not included. [facility] PLASTIC SURGERY [address] [place] [address] Dept: [phone] Dept Patient Name: Annamarie Larios Date: 05/20/23 [...] hyperactivity disorder) Eczema IBS (irritable bowel syndrome) Foster exposure MRSA (methicillin resistant staph aureus) culture positive Substance abuse ([facility]) ([facility]) Past Surgical History: Surgical History [...] under local anesthesia as an outpatient at [facility]. The orders are in. -The risks, benefits and options were discussed with the pt. The risks included but not limited to pain, bleeding, infection, heavy scarring, damage to surrounding structures, fluid collections, asymmetry, and need for further procedures. All of His questions were answered to their satisfaction andHe agrees to proceed with the procedure. [employer] Work Phone: 1(544) 541-228411-21-2023 History and physical note* Nasrin Jaffe MD - 05/20/2023 1:03 PM EST Images from the original note were not included. [facility] PLASTIC SURGERY [address] [place] [address] Dept: [phone] Dept Patient Name: Annamarie Larios Date: 05/20/23 [...] hyperactivity disorder) Eczema IBS (irritable bowel syndrome) Foster exposure MRSA (methicillin resistant staph aureus) culture positive Substance abuse ([facility]) ([facility]) Past Surgical History: Surgical History [...] under local anesthesia as an outpatient at [facility]. The orders are in. -The risks, benefits and options were discussed with the pt. The risks included but not limited to pain, bleeding, infection, heavy scarring, damage to surrounding structures, fluid collections, asymmetry, and need for further procedures. All of His questions were answered to their satisfaction andHe agrees to proceed with the procedure. documented in this [facility]11-21-2023 Miscellaneous Notes* Perioperative Nursing Note - [...] 05/20/2023 11:37 AM EST Date: 05/20/2023 Location: 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 Sindhu Espinosa MD Procedure Summary Anesthesia: Choice ASA: II Estimated Blood Loss: 2 mL Total IV Fluids: 200 for the mL Drains: * None in log * Specimens ID Source Type Tests Collected By Collected At Frozen? Priority Lab ID 1 Forehead Tissue TISSUE EXAM Nasrin Jaffe MD 05/20/23 1203 No [id number] Description: FOREHEAD SOFT TISSUE Staff: Automation Tester: Isadora Rico RN Relief Automation Tester: Neelam Farooq RN Scrub Person: Jenny Meade RN Sugical Proofreader Student: Xi Guerrero Indications: Neal Larios is [...] note was partially dictated using voice recognitionsoftware. [facility] in this [facility]11-21-2023 Note* Perioperative Nursing Note - Yvette [...] All belongings taken with patient on discharge. [facility] [id number] Note* Perioperative Nursing Note - Yvette Rico [...] All belongings taken with patient on discharge. [place] [id number] Note* Perioperative Nursing Note - Yvette Rico RN - 05/20/2023 12:30 PM EST Family/visitor updated and at bedside with patient. [place] [id number] Note* Perioperative Nursing Note - Yvette Rico RN - 05/20/2023 12:30 PM EST Family/visitor updated and at bedside with patient. [id number] Hospital Discharge instructions* Discharge Instructions* Sindhu Espinosa [...] Call office with questions/concerns. documented in this [facility]11-21-2023 Note* Op Note - Nasrin Jaffe MD - 05/20/2023 11:37 AM EST Date: 05/20/2023 Location: 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 Sindhu Espinosa MD Procedure Summary Anesthesia: Choice ASA: II Estimated Blood Loss: 2 mL Total IV Fluids: 200 for the mL Drains: * None in log * Specimens ID Source Type Tests Collected By Collected At Frozen? Priority Lab ID 1 Forehead Tissue TISSUE EXAM Nasrin Jaffe MD 05/20/23 1203 No [id number] Description: FOREHEAD SOFT TISSUE Staff: Automation Tester: Isadora Rico RN Relief Automation Tester: Neelam Farooq RN Scrub Person: Jenny Meade RN Sugical Proofreader Student: Xi Guerrero Indications: Neal Larios is [...] note was partially dictated using voice recognitionsoftware. 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 Sindhu Espinosa MD Procedure Summary Anesthesia: Choice ASA: II Estimated Blood Loss: 2 mL Total IV Fluids: 200 for the mL Drains: * None in log * Specimens ID Source Type Tests Collected By Collected At Frozen? Priority Lab ID 1 Forehead Tissue TISSUE EXAM Nasrin Jaffe MD 05/20/23 1203 No [id number] Description: FOREHEAD SOFT TISSUE Staff: Automation Tester: Isadora Rico RN Relief Automation Tester: Neelam Farooq RN Scrub Person: Jenny Meade RN Sugical Proofreader Student: Xi Guerrero Indications: Neal Larios is [...] note was partially dictated using voice recognitionsoftware. [facility]11-03-2023 Telephone encounter Note* Telephone Encounter - Chanell Gomez MA - 05/02/2023 10:31 AM EDT Notified, scheduled, orders pended. [facility] [id number] Telephone encounter Note* Telephone Encounter - Chanell [...] still elevated would recommend starting cholesterol medication [place] [id number] Miscellaneous Notes* Telephone Encounter - Chanell Gomez [...] recommend starting cholesterol medication documented in this encounterSCoshocton Regional Medical [id number] History of Present illness Narrative* Chanell Gomez MA - 05/01/2023 9:20 AM EDT Verified by name and . * Mare Cezar, DIRECT CARE WORKER - FINANCE ASSOCIATE - 05/01/2023 9:20 AM EDT Images from [...] well. Work is doing well at the [employer]- 6.5 years. .Has scheduled with plastic surgery [...] CNP 05/01/2023 1:54 PM documented in this [facility]11-01-2023 Telephone encounter Note* Telephone Encounter - Stefania Pena - 04/30/2023 2:28 PM EDT Case# [id number] Procedure: excision soft tissue mass of the right forehead intermediate versus complex closure Sx Date: 05/20/23 Time: 1 HOUR Location: [facility] 2 PM Anesthesia: GENERAL OR MAC CPT: 92671,[id number] ICD-10: M79.89 Special Equipment: PAT: SAME DAY HP PCNR PER PRE CERT TOOL ON AVAILITY [facility] [id number] Miscellaneous Notes* Telephone Encounter - Stefania Pena - 04/30/2023 2:28 PM EDT Case# [id number] Procedure: excision soft tissue mass of the right forehead intermediate versus complex closure Sx Date: 05/20/23 Time: 1 HOUR Location: [facility] 2 PM Anesthesia: GENERAL OR MAC CPT: 67248,[id number] ICD-10: M79.89 Special Equipment: PAT: SAME DAY [...] closure under local anesthesia an outpatient at [place]. We will need 1 hour. Thank you Edwina East PA-C documented in this encounterSCoshocton Regional Medical CenterFwolpx83-07-9025 Telephone encounter Note* Telephone Encounter - Stefania Pena - 04/30/2023 2:27 PM EDT ----- Message from Edwina Delaney PA-C sent at 04/30/2023 1:55 PM EDT ----- Stefania, This patient is to be scheduled for excision soft tissue mass of the right forehead intermediate versus complex closure under local anesthesia an outpatient at [place]. We will need 1 hour. Thank you Edwina East PA-C [facility] [id number] History of Present illness Narrative* Edwina Delaney [...] hyperactivity disorder) Eczema IBS (irritable bowel syndrome) [place] exposure MRSA (methicillin resistant staph aureus) culture positive Substance abuse (CMS/HCC) ([facility]) Past Surgical History: Past Surgical [...] under local anesthesia as an outpatient at [facility]. The orders are in. -The risks, [...] the patient at the bedside with me. Ewdina East PA-C documented in this [facility]10-30-2023 Telephone encounter Note* Telephone Encounter - Chanell Gomez MA - 04/28/2023 10:07 AM EDT Scheduled. [facility] [id number] Miscellaneous Notes* Telephone Encounter - Chanell Gomez [...] 60 with 5 refills documented in this [facility]10-27-2023 Telephone encounter Note* Telephone Encounter - Jayne Avitiaons - 04/25/2023 1:19 PM EDT Message released to patient as written. Patient Verbalized Understanding Patient's further questions if applicable: None Patient is scheduled for Physical Were all questions from office addressed or relayed to the patient from encounter: Yes [facility] [id number] Miscellaneous Notes* Telephone Encounter - Jayne Kayley - 04/25/2023 1:19 PM EDT Message released to patient as written. Patient Verbalized Understanding Patient's further questions if applicable: None Patient is scheduled for Physical Were all questions from office addressed or relayed to the patient from encounter: Yes documented in this encounterSCoshocton Regional Medical [id number] Telephone encounter Note* Telephone Encounter - Chanell Gomez MA - 04/25/2023 11:52 AM EDT Images from the original note were not included. KEYONA Parker CNP 04/25/23 11:50 AM Note Rx sent with no refills. Due for annual physical next month- please schedule. Left a message to return call. [facility] [id number] Miscellaneous Notes* Telephone Encounter - Chanell Gomez MA - 04/25/2023 11:52 AM EDT Images from the original note were not included. KEYONA Parker CNP 04/25/23 11:50 AM Note Rx sent with no refills. Due for annual physical next month- please schedule. Left a message to return call. * Telephone Encounter - KEOYNA Parker CNP - 04/25/2023 11:50 AM EDT Rx sent with no refills. Due for annual physical next month- please schedule. * Telephone Encounter - Chen Wang MA - 04/25/2023 10:59 AM EDT Prescription Request: Last medication check: 04/12/19 Last physical exam: 05/02/22 Next scheduled appointment: none Last date of refill on this medication 05/02/22 60 with 5 refills documented in this encounterSCoshocton Regional Medical [id number] Telephone encounter Note* Telephone Encounter - KEYONA Parker CNP - 04/25/2023 11:50 AM EDT Rx sent with no refills. Due for annual physical next month- please schedule. [facility] HospitalMptfkx17-90-2746 Telephone encounter Note* Telephone Encounter - Chen Wang MA - 04/25/2023 10:59 AM EDT Prescription Request: Last medication check: 04/12/19 Last physical exam: 05/02/22 Next scheduled appointment: none Last date of refill on this medication 05/02/22 60 with 5 refills [facility] HospitalQnujsp16-79-1948 Telephone encounter Note* Telephone Encounter - Liz Corley MA - 10/24/2022 2:52 PM EDT Patient cannot make it in during any of your openings today and will keep scheduled appointment tomorrow. [place] [id number] Miscellaneous Notes* Telephone Encounter - Liz Corley [...] to get a hold of dentist in [place]. Face is not as swollen as it [...] Toothache present > 24 hours Protocols used: Mjicwbelj-VGRTF-LS 3/10 pain, wants to get infection taken care of and requesting antibiotic or if he needs seen. Rootcanal 3-4 months ago on that tooth and assuming unsuccessful documented in this [facility]04-27-2023 Telephone encounter Note* Telephone Encounter - KEYONA Fierro CNP - 10/24/2022 2:45 PM EDT He will need to be seen in office. [employer] Work Phone: [phone] Telephone encounter Note* Telephone Encounter - Malena [...] to get a hold of dentist in [place]. Face is not as swollen as it [...] Toothache present > 24 hours Protocols used: Ykovvcysn-WGKMS-LT 3/10 pain, wants to get infection taken care of and requesting antibiotic or if he needs seen. [facility] 3-4 months ago on that tooth and assuming unsuccessful [id number] NoteHNO ID: [id number] Author: Didier Kilgore APRN.DAT Service: ? Author [...] (attention deficit hyperactivity disorder) Bipolar 1 disorder ([facility]) Eczema Hx MRSA infection IBS (irritable bowel syndrome) Substance abuse ([facility]) No past surgical history on [...] swelling or pain on movement. Mouth/Throat: Lips: [place]. Mouth: Mucous membranes are moist. Pharynx: Oropharynx [...] of care. This note was generated using [employer] software. It may contain errors in wording, punctuation, or spelling. Didier Kilgore APRN.DATKettering Health04-24-2023 History of Present illness Narrative* Didier Kilgore [...] (attention deficit hyperactivity disorder) Bipolar 1 disorder ([facility]) Eczema Hx MRSA infection IBS (irritable bowel syndrome) Substance abuse ([facility]) No past surgical history on [...] swelling or pain on movement. Mouth/Throat: Lips: [place]. Mouth: Mucous membranes are moist. Pharynx: Oropharynx [...] of care. This note was generated using [employer] software. It may contain errors in wording, punctuation, or spelling. Didier Kilgore APRN.DAT documented in this encounterRiverside [facility] Hospital03-25-2023 NoteHNO ID: [id number] Author: Iain Lobo PA-C Service: ? Author Type: Physician Semiconductor Processor Type: Progress Notes Filed: 09/21/2022 10:31 AM Note Text: This note was created using [employer]. Subjective Annamarie Larios is a 32 year [...] (attention deficit hyperactivity disorder) Bipolar 1 disorder ([facility]) Eczema Hx MRSA infection IBS (irritable bowel syndrome) Substance abuse ([facility]) Current Outpatient Medications Medication Sig [...] symptoms - STREP A MOLECULAR (POC) [facility]ARLENE [facility]03-25-2023 History of Present illness Narrative* Iain Lobo PA-C - 09/21/2022 10:27 AM EDT This note was created using Kalt[employer]. Subjective Annamarie Larios is a 32 year [...] (attention deficit hyperactivity disorder) Bipolar 1 disorder ([facility]) Eczema Hx MRSA infection IBS (irritable bowel syndrome) Substance abuse ([facility]) Current Outpatient Medications Medication Sig [...] (POC) Iain Lobo PA-C documented in this encounterRiverside [facility] Hospital10-31-2022 History of Present illness Narrative* Dora [...] infection IBS (irritable bowel syndrome) Substance abuse ([facility]) ALLERGIES Cephlasporins [Cephalosporins] and Penicillins [...] sooner. Dora Sexton PA-C documented in this encounterRiverside Methodist Hospital08-09-2022 History of Present illness Narrative* Jj Barry APRN.FINANCE ASSOCIATE - 02/05/2022 7:30 PM EDT Images from [...] infection IBS (irritable bowel syndrome) Substance abuse ([facility]) No past surgical history on [...] plan Jj Barry APRN.DAT documented in this encounterOhio[facility]* Diagnosis COVID-19 documented in this encounter [facility] Work Phone: Evaluation noteNo assessment information available [facility] Work Phone: Evaluation note* Diagnosis Rash- Primary Rash and other nonspecific skin eruption documented in this encounter [facility]* Diagnosis Nausea- Primary Nausea alone documented in this encounter [facility]* Diagnosis Viral URI- Primary Acute upper respiratory infections of unspecified site documented in this encounter [facility] note* Diagnosis Sore throat- Primary Acute pharyngitis Viral URI Acute upper respiratory infections of unspecified site documented in this encounter [facility] note* Diagnosis Mass of soft tissue of face- Primary Other specified soft tissue disorders documented in this encounter [facility]* Diagnosis Annual physical exam- Primary Routine general medical examination at a health care facility Need for hepatitis C screening test Special screening examination for other specified viral diseases Screening for HIV (human immunodeficiency virus) Special screening examination for other specified viral diseases Screening for lipid disorders Other specified soft tissue disorders documented in this encounter [facility] note* Diagnosis Mixed hyperlipidemia- Primary Other specified soft tissue disorders documented in this encounter [facility] note* Diagnosis Mass of soft tissue of face- Primary Other specified soft tissue disorders documented [facility] this [facility]* Diagnosis Mixed hyperlipidemia- Primary documented in this encounter [facility] note* Diagnosis Strep throat- Primary Streptococcal sore throat documented in this encounter [facility] note* Diagnosis Annual physical exam- [...] depression type- Primary [facility] instructions Additional Instructions Follow-up with your PCP and return for any worsening of your symptoms.[facility] Work Phone: Hospital Discharge instructionsAdditional Instructions follow up with ophthalmology within one week to evaluate right subconjuctival hemorrhageWSamaritan North Health Center Work Phone: Reason for referral (narrative)No reason for referral information availableWSamaritan North Health Center Work Phone: Summary Purpose Family History No Family History Records FoundNo Family History Records FoundNo Family History Records FoundNo Family History Records FoundNo Family History Records Found Advance Directives No Advanced Directives Records FoundDocuments on File Type Date Recorded 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 No February 13, 2025 3:06pm Advance Directive Response Recorded Date/ Time Do you have a Healthcare Power of Shingle Packer? No February 13, 2025 7:35pm Chief Complaint [...] section and content) DATE CREATED AUTHOR 02/22/2019 [facility] DATE CREATED AUTHOR AUTHOR'S ORGANIZ ATION 06/15/2021 [facility] DATE CREATED AUTHOR AUTHOR'S ORGANIZ ATION 08/15/2023 [facility] DATE CREATED AUTHOR AUTHOR'S ORGANIZ ATION 08/06/2024 [facility] DATE CREATED AUTHOR AUTHOR'S ORGANIZ ATION [facility] Care Teams (unrecognized sec tion and content) Informatica Architect Relationship Specialty Start Date End Date Nikita Sorensen MD [address] [facility], [place] [address] PCP - General Family Medicine 06/05/15 Informatica Architect Relationship Specialty Start Date End Date Nikita Sorensen [address] [facility], [place] [id number] PCP - General Family Practice 01/29/12 Informatica Architect Relationship Specialty Start Date End Date Nikita Sorensen [address] [facility] [place] [place] [address] PCP - General Family Medicine 01/29/12 Informatica Architect Relationship Specialty Start Date End Date Nikita Sorensenoy [address] [facility] [place] [address] PCP - General Family Medicine 01/29/12 Informatica Architect Relationship Specialty Start Date End Date Nikita Sorensen [address] [facility], [place] [phone] PCP - General Family Medicine 01/29/12 Informatica Architect Relationship Specialty Start Date End Date Nikita Sorensen MD [address] [place] [address], [place] [address] PCP - General 06/05/15 Team Status: Active Member Role Status Dates Dr. Nikita Sorensen MD Family Provider Active Dr. Nikita Sorensen MD Primary Care Provider Active Team Status: Inactive Member Role Status Dates Dr. Nikita Sorensen MD Primary Care Provider Active Jero Mancia MD Emergency Provider Active Informatica Architect Relationship Specialty Start Date End Date Nikita Sorensen MD [address] [place] [address], [place] [address] PCP - General 06/05/15 Informatica Architect Relationship Specialty Start Date End Date Nikita Sorensen MD [address] [place] [address] PCP - General 06/05/15 Informatica Architect Relationship Specialty Start Date End Date Nikita Sorensen MD [address] [place] [address] PCP - General 06/05/15 Informatica Architect Relationship Specialty Start Date End Date Nikita Sorensen MD [address] [place] [address] PCP - General 06/05/15 Informatica Architect Relationship Specialty Start Date End Date Nikita Sorensen MD [address] [facility] [place] [address] PCP - General 06/05/15 Informatica Architect Relationship Specialty Start Date End Date Nikita Sorensen MD [address] [facility] [place] [address] PCP - General 06/05/15 Informatica Architect Relationship Specialty Start Date End Date Nikita Sorensen MD [address] [place] [address] [place] [address] PCP - General 06/05/15 Informatica Architect Relationship Specialty Start Date End Date Nikita Sorensen MD [address] [place] [address] [place] [address] PCP - General 06/05/15 Informatica Architect Relationship Specialty Start Date End Date Nikita Sorensen MD [address] [place] [address] PCP - General 06/05/15 Informatica Architect Relationship Specialty Start Date End Date Nikita Sorensen [address] [place] [address] [place] [address] PCP - General Family Medicine 01/29/12 Informatica Architect Relationship Specialty Start Date End Date Nikita Sorensen MD [address] [place] [address] [address] [facility], [place] [address] PCP - General 06/05/15 Team Status: Active [...] Inactive Member Role/Relationship Status Dates Dr. Nikita Sroensen MD Primary Care Provider Active Start: February [...] or prosecute any alcohol or drug abuse patient.[facility] HospitalIn the event this information is protected by the Federal Confidentiality of Alcohol and Drug Abuse Patient Records regulations: The Federal rules restrict any use of the information to criminally investigate or prosecute any alcohol or drug abuse patient.[facility] HospitalIn the event this information is protected by the Federal Confidentiality of Alcohol and Drug Abuse Patient Records regulations: The Federal rules restrict any use of the information to criminally investigate or prosecute any alcohol or drug abuse patient.[facility] HospitalIn the event this information is protected by the Federal Confidentiality of Alcohol and Drug Abuse Patient Records regulations: The Federal rules restrict any use of the information to criminally investigate or prosecute any alcohol or drug abuse patient.[facility] HospitalIn the event this information is protected by the Federal Confidentiality of Alcohol and Drug Abuse Patient Records regulations: The Federal rules restrict any use of the information to criminally investigate or prosecute any alcohol or drug abuse patient.[facility] Reason for Visit (unrecogniz ed section [...] 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] Procedures VA EXC B9 LES MRGN XCP SK TG F/E/E/N/L/M 1.1-2.0CM VA REPAIR INTERMEDIATE F/E/E/N/L&/MUC 2.5 CM/< VA REPAIR COMPLEX F/C/C/M/N/AX/G/H/F 1.1-2.5 CM EXCISION OF SOFT TISSUE MASS OF THE RIGHT FOREHEAD WITH IMMEDIATE VERSUS COMPLEX CLOSURE REPAIR INTERMEDIATE WOUNDS OF FACE EARS EYELIDS NOSE LIPS MUCOUS MEMBRANES 2.5 CM OR LESS REPAIR COMPLEX WOUND OF FOREHEAD CHEEK CHIN MOUTH NECK AXILLAE GENITALIA HANDS FEET 1.1 TO 2.5 CM Nasrin Jaffe MD [address] [place] [id number] Located Within [facility] Main Or [facility] [place] [address] Referral ID Status Reason Start Date Expiration Date Visits Re quested Visits Authorized [id number] 1 1 Reason Comments Fever chills, cough [...] not necessary. bupivacaine-EPINEPHrine PF (Marcaine w/EPI) 0.25% -1:[id number] injection (CANCELED) As needed, Starting on Fri05/20/23 [...] BE BASED ON THE PRIMARY CLINICAL RECORDS. [employer] provides no warranty or guarantee of the accuracy or completeness of information in this document.
== END 2025-04-11 11:32 | disposition home or self-care (01) ==
LOC: ED 16:21 → MS3 04-08 09:21
PROVIDERS: Admitting Provider Internal Medicine; Emergency Provider Emergency Medicine; PCP Family Medicine; Visit Provider Family Medicine
DX: F10.929 Alcohol use, unspecified with intoxication, unspecified (principal); F10.939 Alcohol use, unspecified with withdrawal, unspecified; F17.220 Nicotine dependence, chewing tobacco, uncomplicated; F32.A Depression, unspecified; I10 Essential (primary) hypertension; F41.9 Anxiety disorder, unspecified; H11.31 Conjunctival hemorrhage, right eye; Z79.899 Other long term (current) drug therapy; Y90.8 Blood alcohol level of 240 mg/100 ml or more; R00.0 Tachycardia, unspecified; Z86.16 Personal history of COVID-19
CPT/HCPCS: 36415; 80053; 80307; 82077; 85025; 93005; 96360; 96361; 96372; 99221; 99284; A4216; G0378

== ENCOUNTER → 2025-05-17 | Outpatient (CLI) | payer MEDICAID, SELFPAY ==
[2025-05-17 12:15] LABS: Hematocrit 51.1 % (40-54); Hemoglobin 16.5 g/dL (13.0-16.5); Immature Granulocytes Count 0.010 X10^3/uL (0.0-0.0); Mean Corp Hgb Conc 32.3 g/dL (32-36); Mean Corpuscular Volume 89.8 fL (80-94); Mean Platelet Vol. 10.7 fl (6.2-12.0); NRBC Flagged by Analyzer 0 % (0-5); Platelet Count 506 K/mm3 (150-450); RBC Distribution Width CV 13.5 % (11.6-14.6); RBC Distribution Width SD 44.0 fl (35.1-43.9); Red Blood Count 5.69 M/mm3 (4.6-6.2); White Blood Count 9.6 K/mm3 (4.4-11.0)
[2025-05-17 13:10] LABS: AST(SGOT) 25 U/L (<=37); Alanine Aminotransfer ALT/SGPT 34 U/L (<=46); Albumin, Serum 4.6 g/dL (3.5-5.0); Alkaline Phosphatase 61 U/L (40-129); Anion Gap 10 (5-15); BUN 19 mg/dL (4-19); BUN/Creat Ratio 15.7 RATIO (10-20); Calcium,Total 10.1 mg/dL (7.6-11.0); Carbon Dioxide 28.5 mmol/L (21.0-32.0); Chloride 102 mmol/L (98-108); Globulin 3.0 g/dL (2.2-4.2); Glucose 99 mg/dL (70-99); Potassium 4.4 mmol/L (3.3-5.1); Vitamin B12 938 pg/mL (180-914); Vitamin D,25 Hydroxy 47.8 ng/mL (30-100)
[2025-05-17 13:22] LABS: Cholesterol 174 mg/dL (<=200); Low Density Lipoprotein Calc. 111 mg/dL; Triglycerides 176 mg/dL; Very Low Density Lipoprotein 35 mg/dL (5-40); cholesterol:hdl ratio screen 5.54
== END | disposition home or self-care (01) ==
LOC: VSLAB 09:25
PROVIDERS: PCP Family Medicine
DX: I10 Essential (primary) hypertension (principal); E56.9 Vitamin deficiency, unspecified; Z13.220 Encounter for screening for lipoid disorders
CPT/HCPCS: 36415; 80053; 80061; 82306; 82607; 84443; 85025

== ENCOUNTER → 2025-06-28 | Outpatient (CLI) | payer MEDICAID, SELFPAY ==
[2025-06-28 16:41] LABS: Hematocrit 47.5 % (40-54); Hemoglobin 15.3 g/dL (13.0-16.5); Immature Granulocytes Count 0.080 X10^3/uL (0.0-0.0); Mean Corp Hgb Conc 32.2 g/dL (32-36); Mean Corpuscular Volume 86.1 fL (80-94); Mean Platelet Vol. 9.2 fl (6.2-12.0); NRBC Flagged by Analyzer 0 % (0-5); POSITIVE DIFFERENTIAL YES; Platelet Count 566 K/mm3 (150-450); RBC Distribution Width CV 14.0 % (11.6-14.6); RBC Distribution Width SD 44.1 fl (35.1-43.9); Red Blood Count 5.52 M/mm3 (4.6-6.2); White Blood Count 17.2 K/mm3 (4.4-11.0)
[2025-06-28 16:44] LABS: Differential Indicated SCAN CRITERIA MET
[2025-06-28 17:49] LABS: Differential Comment SCANNED
[2025-06-28 18:00] LABS: Vitamin B12 604 pg/mL (180-914)
== END | disposition home or self-care (01) ==
LOC: VSLAB 15:35
PROVIDERS: PCP Family Medicine
DX: R89.8 Other abnormal findings in specimens from other organs, systems and tissues (principal); D75.839 Thrombocytosis, unspecified
CPT/HCPCS: 36415; 82607; 85025